=== PATIENT | male | born 1965 | race Two or more races ===

== ENCOUNTER 2020-06-09 09:52 | Outpatient (REF) | payer MEDICAID, SELFPAY ==
[2020-06-09 10:17] LABS: COVID-19 Test Negative (Negative)
== END 2020-06-09 09:53 | disposition home or self-care (01) ==
LOC: HO.LAB 09:52
PROVIDERS: Visit Provider Internal Medicine
DX: Z20.828 Contact with and (suspected) exposure to other viral communicable diseases (principal)
CPT/HCPCS: 87635

== ENCOUNTER 2020-06-12 09:07 | Outpatient (REF) | payer MEDICAID, SELFPAY | END 2020-06-12 09:08 | disposition home or self-care (01) | LOC: HO.LAB 09:07 | PROVIDERS: Visit Provider Internal Medicine | DX: Z20.828 Contact with and (suspected) exposure to other viral communicable diseases (principal) | CPT/HCPCS: 87635 ==

== ENCOUNTER → 2020-06-24 09:11 | Outpatient (REF) | payer MEDICAID, SELFPAY ==
--- NOTE | 2020-06-24 | NM_ITS ---
EXERCISE MYOCARDIAL PERFUSION STUDY INDICATION: Palpitations, hypertension, hyperlipidemia, diabetes, assess for coronary disease ischemia TECHNIQUE: The patient was brought in for an exercise perfusion study on 06/24/2020. Patient performed exercise as per Jean protocol and was injected 30 mCi of sestamibi once target heart rate was achieved. Images were obtained using the SPECT gamma camera interlaced with the gating device. Images were obtained in supine position. Resting perfusion study was performed on 06/25/2020. Patient was administered 30 mCi of sestamibi intravenously at rest. Images were then obtained in supine position. Total DLP 71mGy-cm. Images were processed with the software and compared side to side in short axis, horizontal long axis and vertical long axis views. FINDINGS: Raw images were reviewed. The stress perfusion study showed no significant perfusion abnormality. Both uncorrected as well as CT attenuation corrected images were reviewed. The gated study shows normal LV systolic function with calculated LVEF of 64%. LV cavity is normal in size. The gated study shows normal wall thickening and contraction of segments. Resting study shows no significant perfusion abnormality. Gating at rest reveals normal wall motion with ejection fraction at 54%. The findings are consistent with no reversible or fixed perfusion abnormality. NM/NM alex perf SPECT rest & str IMPRESSION: 1. Myocardial perfusion imaging study shows normal myocardial perfusion. No evidence of any ischemia or infarction. 2. Gated LVEF is 64% during stress; 54% during rest. 3. Transient ischemic dilatation not present. EKG component of the test reported separately.
--- NOTE | 2020-06-24 09:22 | CA_ITS ---
Acquisition Time: 2020-06-24 09:30:18 Total Exercise Time: 00:05:20 Test Indications: Dyspnea Medications: Protocol: DELFINO Max HR: 148 BPM 89% of Pred: 166 BPM Max BP: 136/082 mmHG Max Work Load: 7.0 METS Exercise stress nuclear using Delfino protocol. Total of 5 min 20 sec, METS 7.0. Pt reported SOB in peak exercise without any chest pain. EKG without any arrhythmias, no ischemic changes seen in peak exercise or in recovery. Nuclear images to follow. Normotensiver esponse to exercise. Test reviewed with DR. Oneal Referred By: Darius Johnson Overread By: Nghia Alonso
== END ==
LOC: HO.CARD 09:11
PROVIDERS: PCP Internal Medicine; Visit Provider Internal Medicine Cardiovascular Disease
DX: I10 Essential (primary) hypertension (principal)
CPT/HCPCS: 78452; 93017; A9500

== ENCOUNTER 2020-11-27 08:00 | Outpatient (RCR) | payer MEDICAID, SELFPAY ==
[2020-10-28 16:06] VITALS: BP 134/88
== END 2020-11-27 09:21 | disposition other institution (70) ==
LOC: HO.PTCHIC 08:00
PROVIDERS: PCP Internal Medicine; Visit Provider Internal Medicine
DX: M54.12 Radiculopathy, cervical region (principal); M54.5 Low back pain
CPT/HCPCS: 97014; 97110; 97140; 97162

== ENCOUNTER 2021-01-15 11:48 | Outpatient (REF) | payer MEDICAID, SELFPAY | END 2021-01-15 11:49 | disposition home or self-care (01) | LOC: HO.LAB 11:48 | PROVIDERS: Visit Provider Internal Medicine | DX: Z20.822 Contact with and (suspected) exposure to COVID-19 (principal) | CPT/HCPCS: C9803; U0003; U0005 ==

== ENCOUNTER → 2021-03-24 10:51 | Outpatient (BNVA) | payer MEDICAID, SELFPAY | PROVIDERS: PCP Internal Medicine; Visit Provider Anesthesiology | DX: M47.812 Spondylosis without myelopathy or radiculopathy, cervical region (principal); M47.816 Spondylosis without myelopathy or radiculopathy, lumbar region; M51.36 Other intervertebral disc degeneration, lumbar region; M54.16 Radiculopathy, lumbar region | CPT/HCPCS: 99202 ==

== ENCOUNTER 2021-04-01 08:38 | Outpatient (REF) | payer MEDICAID, SELFPAY ==
--- NOTE | ~2021-04-01 | MR_ITS ---
EXAMINATION: MR LUMBAR SPINE WITHOUT CONTRAST CLINICAL INFORMATION: Tingling. Low back pain. COMPARISON: X-ray dated 07/25/2016. TECHNIQUE: MRI of the lumbar spine was obtained using routine sequences without contrast. FINDINGS: VERTEBRAL BODIES AND PARASPINAL STRUCTURES: The marrow signal is within normal limits. There are no compression fractures or anterior subluxations. No marrow or soft tissue edema visible. Mild rightward curvature of the lumbar spine evident. The paraspinal soft tissues are normal. There are mild degenerative changes of the SI joints. CONUS MEDULLARIS AND CAUDA EQUINA: Normal, terminating at the level of L1. No lower cord signal abnormality is seen. The cauda equina nerve roots are normal. SPINAL LEVELS: L1-L2: Mild loss of disc height and minimal annular bulge without central canal stenosis or foraminal narrowing. L2-L3: No significant disc pathology. Patent central canal and foramina. L3-L4: No disc pathology, central canal stenosis, or foraminal narrowing. L4-L5: Mild disc bulge and hypertrophic facet arthropathy without central canal stenosis. Mild bilateral foraminal narrowing. L5-S1: Moderate right-sided facet degeneration. No focal disc protrusion. Mild right foraminal narrowing. MR/MR lumbar spine wo con IMPRESSION: Moderate right-sided facet arthropathy at the L5-S1 level with mild right foraminal encroachment. No focal disc protrusion. Milder spondylitic changes elsewhere as described.
== END 2021-04-01 08:39 | disposition home or self-care (01) ==
LOC: HO.MRI 08:38
PROVIDERS: PCP Internal Medicine; Visit Provider Anesthesiology
DX: M54.16 Radiculopathy, lumbar region (principal); M51.36 Other intervertebral disc degeneration, lumbar region; M47.816 Spondylosis without myelopathy or radiculopathy, lumbar region
CPT/HCPCS: 72148

== ENCOUNTER → 2021-04-21 11:02 | Outpatient (BNVA) | payer MEDICAID, SELFPAY | PROVIDERS: PCP Internal Medicine; Visit Provider Anesthesiology | DX: M47.812 Spondylosis without myelopathy or radiculopathy, cervical region (principal); M47.816 Spondylosis without myelopathy or radiculopathy, lumbar region; M51.36 Other intervertebral disc degeneration, lumbar region; M54.16 Radiculopathy, lumbar region | CPT/HCPCS: 99212 ==

== ENCOUNTER → 2021-05-11 10:07 | Outpatient (BNVA) | payer MEDICAID, SELFPAY | PROVIDERS: PCP Internal Medicine; Visit Provider Psychiatry & Neurology Neurology ==

== ENCOUNTER 2021-05-17 09:46 | Outpatient (REF) | payer MEDICAID, SELFPAY ==
[2021-05-17 11:11] LABS: Hemoglobin 14.2 g/dl (14.0-18.0); Mean Corpuscular Hemoglobin 28.9 pg (27.0-33.0); Mean Corpuscular Volume 87.6 fL (80-98); Mean Platelet Volume 11.6 fL (9.4-12.4); Platelet Count 157 X10*3/uL (160-400); Red Blood Count 4.91 X10*6/uL (4.60-5.80); Red Cell Distribution Width 12.9 % (11.0-16.0); White Blood Count 8.8 X10*3/uL (4.8-10.8)
[2021-05-17 12:31] LABS: Alanine Aminotransferase 24 U/L (0-40); Albumin Level 4.3 g/dL (3.5-5.0); Alkaline Phosphatase 86 U/L (39-117); Anion Gap 15 (12-20); Aspartate Amino Transferase 16 U/L (5-37); Bilirubin Total 0.3 mg/dL (0.0-1.0); Blood Urea Nitrogen 18 mg/dL (9-16); Calcium 9.2 mg/dL (8.4-10.2); Carbon Dioxide 23 mmol/L (22-29); Chloride 108 mmol/L (96-108); Estimated Glomerular Filt Rate > 60; Glucose Random 110 mg/dL (60-115); Potassium 4.5 mmol/L (3.3-5.1); Sodium 141 mmol/L (135-145); Total Protein 6.9 g/dL (6.5-8.0)
== END 2021-05-17 09:47 | disposition home or self-care (01) ==
LOC: HO.LAB 09:46
PROVIDERS: PCP Internal Medicine; Referring Provider Internal Medicine; Visit Provider Nurse Practitioner Family
DX: R10.31 Right lower quadrant pain (principal); R14.0 Abdominal distension (gaseous); K21.9 Gastro-esophageal reflux disease without esophagitis
CPT/HCPCS: 36415; 80053; 85027; 99202

== ENCOUNTER 2021-06-08 06:17 | Outpatient (REF) | payer MEDICAID, SELFPAY | END 2021-06-08 06:18 | disposition home or self-care (01) | LOC: HO.RADIR 06:17 | PROVIDERS: Visit Provider Anesthesiology | DX: Z13.89 Encounter for screening for other disorder (principal) ==

== ENCOUNTER 2021-06-15 06:40 | Outpatient (REF) | payer MEDICAID, SELFPAY | END 2021-06-15 06:41 | disposition home or self-care (01) | LOC: HO.RADIR 06:40 | PROVIDERS: Visit Provider Anesthesiology | DX: Z13.89 Encounter for screening for other disorder (principal) ==

== ENCOUNTER 2021-07-06 06:17 | Outpatient (REF) | payer MEDICAID, SELFPAY ==
--- NOTE | ~2021-07-06 | FL_ITS ---
EXAMINATION: XR FLUOROSCOPY WITH IMAGES CLINICAL INFORMATION: Spondylosis without myelopathy or radiculopathy. History of lower back pain. COMPARISON: Lumbar MRI from 04/01/2021 TECHNIQUE: Fluoroscopy performed by Dr. Caballero. Fluoroscopy time: 0.8 minutes DAP: 11.9 Gycm2 Images: 8 images are saved. FL/FL guidance in treatment room FINDINGS AND IMPRESSION: Fluoroscopic imaging guidance required during the perineural injections performed along bilateral L3, L4 and L5 nerve roots. Please refer to the procedure report.
== END 2021-07-06 06:18 | disposition home or self-care (01) ==
LOC: HO.RADIR 06:17
PROVIDERS: Visit Provider Anesthesiology
DX: M47.816 Spondylosis without myelopathy or radiculopathy, lumbar region (principal)
CPT/HCPCS: Q9967

== ENCOUNTER 2021-07-12 07:17 | Day surgery (SDC) | payer MEDICAID, SELFPAY ==
[2021-07-06 14:14] VITALS: BMI 33.9
--- NOTE | 2021-07-12 07:59 | P.CONAN_ITS ---
FORMERLY [facility] Active Problems Active Problems: All Active Problems (Updated 07/06/21 @ 13:59 by Jeanetet beatty RN) Obstructive sleep apnea (Acute) Restless legs syndrome (Acute) Periodic limb movements of sleep (Acute) Radiculopathy, lumbar region (Acute) Disc degeneration, lumbar (Acute) Spondylosis of lumbar spine (Acute) Spondylosis of cervical spine (Acute) Past Medical History Medical History (Updated 07/06/21 @ 13:59 by Jeanette Metcalf RN) Cardiomyopathy Diabetes Disc degeneration, lumbar Elevated cholesterol HTN (hypertension) Radiculopathy, lumbar region Sleep apnea Spondylosis of cervical spine Spondylosis of lumbar spine Family History Family History (Updated 05/17/21 @ 10:02 by Carrie Mcclure) Father HTN (hypertension) Diabetes Mother Diabetes HTN (hypertension) Heart disease Family history of problems with anesthesia: No Surgical History Surgical History (Updated 07/06/21 @ 13:59 by Jeanette Metcalf RN) H/O colonoscopy Hernia Hx of cardiac catheterization Hx of knee surgery History of Problems with Anesthesia: No Social History Social History (Updated 05/17/21 @ 10:03 by Carrie Mcclure) Household Members: Family Alcohol intake: former Patient Tobacco Use Status: Former Tobacco user Tobacco use type: Cigarette Advance Directives: No (unknown) Advance Directives Information Provided: Yes Advance Directives on File: No Meds Allergies Allergy/AdvReac Type Severity Reaction Status Date / Time No Known Allergies Allergy Verified 07/12/21 07:52 [No Known Allergies*] Active Medications: Current Medications Lactated Ringer's (Lr) 1,000 mls @ 50 mls/hr IVCONT .Q20H [facility] Home Medications Medication Instructions Recorded Confirmed Last Taken Type amitriptyline 75 mg tablet 75 mg PO BEDTIME 03/24/21 Unknown History amlodipine 5 mg tablet 5 mg PO DAILY 03/24/21 Unknown History aripiprazole 15 mg tablet 15 mg PO DAILY 03/24/21 Unknown History atorvastatin 40 mg tablet 40 mg PO BEDTIME 03/24/21 Unknown History bupropion HCl 150 mg 24 hr tablet, 150 mg PO QAM 03/24/21 Unknown History extended release buspirone 15 mg tablet 15 mg PO TID 03/24/21 Unknown History folic acid 1 mg tablet 1 mg PO DAILY 03/24/21 Unknown History hydrochlorothiazide 12.5 mg tablet 12.5 mg PO DAILY 03/24/21 Unknown History losartan 50 mg tablet 50 mg PO DAILY 03/24/21 Unknown History metformin 500 mg tablet 500 mg PO DAILY 03/24/21 Unknown History metoprolol tartrate 50 mg tablet 50 mg PO BID 03/24/21 Unknown History zolpidem 10 mg tablet 10 mg PO BEDTIME PRN 03/24/21 Unknown History Exam Exam Date and Time: July 12, 2021 0759 Height,Weight and Vital Signs: Height 5 ft 6 in Weight 95.254 kg Airway Mallampati Class: II (6 teeth) TM Dist: >3cm Neck ROM: Full Heart: rrr Lungs: cta Assessment and Plan Assessment Anesthesia Assessment: Anesthesia Plan Discussed and Chart Reviewed Final Anesthetic Review Family History of Problems with Anesthesia: No History of Problems with Anesthesia: No NPO: Yes ASA Class: III Final Preanesthetic Review: No Changes in Pt Med Stat, Meds/Allgs Chart Reviewed and Consent Obtained/Reviewed Patient Risk: Intermediate Procedure Risk: Intermediate Anesthetic Plan Anesthetic Plan: MAC: Disposition: Standard PACU
[2021-07-12 08:01] VITALS: BP 152/95; PULSE 86; RESP 20; TEMP 36.8; O2SAT 97
[2021-07-12 08:09] LABS: Glucose, Whole Blood 128 mg/dL (60-115)
[2021-07-12] MEDS: Lactated Ringers 1,000 ML 50 ML IVCONT (08:22)
--- NOTE | 2021-07-12 08:32 | P.HPSUR_ITS ---
Pre-Procedural Eval Section A Date of Service: 07/12/21 Section B Chief Complaint: Screening Relevant Family History (Specify if Yes): No Relevant Social History: None Present Medications: see Short Stay Collaborative assessment Medical History: Significant History (Cardiomyopathy Diabetes Disc degeneration, lumbar Elevated cholesterol HTN (hypertension) Radiculopathy, lumbar region Sleep apnea Spondylosis of cervical spine Spondylosis of lumbar spine) History of Previous Operations: Relevant previous surgery/procedure and date(s) (H/O colonoscopy Hernia Hx of cardiac catheterization Hx of knee surgery) Allergies: Allergies Allergy/AdvReac Type Severity Reaction Status Date / Time No Known Allergies Allergy Verified 07/12/21 07:52 [No Known Allergies*] Review of Systems Sugical H&P ROS: Negative: Constitution, Cardiovascular, Respiratory, Rosa rological, Psychiatric, Hem-Onc, Allergic/Immunologic, Gastrointestinal, Genitourinary, Musculoskeletal, Integumentary, Endocrine and Eyes/Ears/Nose/Throat Exam Surgical H&P Exam: Normal: HEENT, Normal: Heart, Normal: Lungs, Normal: Extremities, Normal: Abdomen, Normal: Skin and Normal: Neurological Plan Diagnosis/Plan: Unchanged I have reviewed the history and physical and performed a pertinent physical examination on my patient. No changes have occurred unless specified.
--- NOTE | 2021-07-12 08:34 | P.BOP_ITS ---
Brief Operative Note Date of Service: 07/12/21 Pre-op diagnosis: colon screening Post-op diagnosis: same Procedure: see op note Surgeon: Christian Garcia MD Anesthesia: MAC Was an Parking Enforcement Technician used for this Procedure?: No Estimated blood loss (mL): 0 Condition: stable Disposition: PACU
--- NOTE | 2021-07-12 08:34 | W.PM.OPN ---
Operative Note Operative Note Date of Service: 07/12/21 Narrative: Operative Information Procedure Description: Colonoscopy COLONOSCOPY Instrument: Olympus variable stiffness pediatric scope 190L Colonoscopy Monitoring: Vital signs and clinical assessment, continuous EKG monitoring, Pulse oximetry, Carbon Dioxide monitoring and blood pressure monitoring were done throughout the procedure. Colon withdrawal time was 13 minutes. Procedure: The patient was placed in the left lateral decubitis position and pre-procedure medications were administered. After a digital rectal examination of the ano-rectum, the video colonoscope was inserted into the rectum and advanced through the colon to the cecum/TI. The colonoscope was slowly withdrawn in a retrograde panoramic fashion and the colon mucosa was carefully examined including a retroflexed view of the rectum. Findings and interventions are described below. Procedure Difficulty:easy Findings: Terminal Ileum-normal Cecum:normal Ascending Colon: normal Transverse Colon -normal Descending Colon:normal Sigmoid Colon: normal Rectum: Retroflexion with small internal hemorrhoids, grade I, 10-12 mm sessile polyp removed with cold snare and x 2 clips applied for hemostasis Anorectum - normal Colon preparation: [place] Bowel Preparation Scale Right colon; 2 (except at cecum where it was 1) Transverse colon: 2 Left colon; 2 (0 = Unprepared colon segment with mucosa not seen due to solid stool that cannot be cleared. 1 = Portion of mucosa of the colon segment seen, but other areas of the colon segment not well seen due to staining, residual stool and/or opaque liquid. 2 = Minor amount of residual staining, small fragments of stool and/or opaque liquid, but mucosa of colon segment seen well. 3 = Entire mucosa of colon segment seen well with no residual staining, small fragments of stool or opaque liquid) Impression and Post Procedure Diagnosis: internal hemorrhoids polyp Plan: High fiber diet leaflet Avoid straining at stool, epsom salts and sitz bath, anusol supps or cream Repeat Colonoscopy in 4-5 years due to poor prep around cecum or earlier if clinically indicated Above findings were reviewed with the patient and relevant handouts were provided if indicated.
[2021-07-12 09:02] VITALS: BP 121/76; PULSE 89; RESP 16; TEMP 36.5; O2SAT 92
[2021-07-12 09:18] VITALS: BP 133/90; PULSE 85; RESP 17; TEMP 36.5; O2SAT 95
== END 2021-07-12 09:45 ==
LOC: HO.SSS 07:17
PROVIDERS: PCP Internal Medicine; Visit Provider Internal Medicine Gastroenterology
PROC: 0DJD8ZZ Inspection of Lower Intestinal Tract, Via Natural or Artificial Opening Endoscopic (ICD-10-PCS; CPT 45378; principal; 2021-07-12 08:30)
DX: Z12.11 Encounter for screening for malignant neoplasm of colon (principal); D12.8 Benign neoplasm of rectum; K64.0 First degree hemorrhoids; R10.31 Right lower quadrant pain; K21.9 Gastro-esophageal reflux disease without esophagitis; G47.33 Obstructive sleep apnea (adult) (pediatric); I42.9 Cardiomyopathy, unspecified; I10 Essential (primary) hypertension; E78.00 Pure hypercholesterolemia, unspecified; E11.9 Type 2 diabetes mellitus without complications; Z87.891 Personal history of nicotine dependence; Z79.84 Long term (current) use of oral hypoglycemic drugs; Z79.899 Other long term (current) drug therapy
CPT/HCPCS: 45385; 82947; 88305

== ENCOUNTER → 2021-07-14 10:36 | Outpatient (BNVA) | payer MEDICAID, SELFPAY | PROVIDERS: PCP Internal Medicine; Visit Provider Anesthesiology | DX: M47.816 Spondylosis without myelopathy or radiculopathy, lumbar region (principal); M47.812 Spondylosis without myelopathy or radiculopathy, cervical region; M51.36 Other intervertebral disc degeneration, lumbar region; M54.16 Radiculopathy, lumbar region | CPT/HCPCS: 99212 ==

== ENCOUNTER → 2021-07-27 09:06 | Outpatient (BNVA) | payer MEDICAID, SELFPAY | PROVIDERS: PCP Internal Medicine; Referring Provider Internal Medicine; Visit Provider Psychiatry & Neurology Neurology ==

== ENCOUNTER → 2021-08-04 13:37 | Outpatient (BNVA) | payer MEDICAID, SELFPAY | PROVIDERS: PCP Internal Medicine; Referring Provider Internal Medicine; Visit Provider Nurse Practitioner Family | DX: K59.01 Slow transit constipation (principal); K64.8 Other hemorrhoids; D36.9 Benign neoplasm, unspecified site; Z98.890 Other specified postprocedural states | CPT/HCPCS: 99212 ==

== ENCOUNTER → 2021-12-07 13:47 | Outpatient (BNVA) | payer MEDICAID, SELFPAY | PROVIDERS: PCP Internal Medicine; Referring Provider Internal Medicine; Visit Provider Psychiatry & Neurology Neurology | DX: G47.33 Obstructive sleep apnea (adult) (pediatric) (principal); G25.81 Restless legs syndrome; G47.61 Periodic limb movement disorder | CPT/HCPCS: 99212 ==

== ENCOUNTER → 2022-01-26 12:53 | Outpatient (BNVA) | payer MEDICAID, SELFPAY | PROVIDERS: PCP Internal Medicine; Referring Provider Internal Medicine; Visit Provider Nurse Practitioner Family | DX: R10.11 Right upper quadrant pain (principal); M62.08 Separation of muscle (nontraumatic), other site; K59.01 Slow transit constipation | CPT/HCPCS: 99212 ==

== ENCOUNTER → 2022-02-08 14:28 | Outpatient (BNVA) | payer MEDICAID, SELFPAY | PROVIDERS: PCP Internal Medicine; Visit Provider Nurse Practitioner Family | DX: G47.33 Obstructive sleep apnea (adult) (pediatric) (principal); G25.81 Restless legs syndrome; Z79.899 Other long term (current) drug therapy; Z99.89 Dependence on other enabling machines and devices | CPT/HCPCS: 99212 ==

== ENCOUNTER 2022-02-09 14:06 | Outpatient (REF) | payer MEDICAID, SELFPAY ==
--- NOTE | ~2022-02-09 | CT_ITS ---
EXAMINATION: CT ABDOMEN AND PELVIS WITHOUT CONTRAST CLINICAL INFORMATION: Right upper quadrant pain COMPARISON: None TECHNIQUE: Multidetector volumetric imaging was performed from the superior aspect of the liver through the pubic symphysis. Sagittal and coronal reformatted images were obtained on the technologist's workstation. This CT examination was performed using dose optimization techniques as appropriate, variously including the following: *Automated exposure control *Adjustment of mA and/or kV according to patient size (this includes techniques or standardized protocols for targeted exams where dose is matched to indication/reason for exam; i.e. extremities or head) *Use of iterative reconstruction technique DLP: 590 mGy-cm FINDINGS: LUNG BASES: The visualized lung bases are unremarkable. LIVER, GALLBLADDER, AND BILIARY TREE: The liver is low in attenuation suggestive of fatty infiltration. No focal hepatic lesion or biliary ductal dilatation is present. The gallbladder is unremarkable with no evidence of radiopaque gallstones, gallbladder wall thickening, or obvious pericholecystic inflammatory changes. PANCREAS: Unremarkable. SPLEEN: Unremarkable. ADRENAL GLANDS: Unremarkable. KIDNEYS AND URETERS: The kidneys are normal in size, shape, and attenuation. No hydronephrosis, hydroureter, or calculi seen. No perinephric stranding. BLADDER: Unremarkable. GASTROINTESTINAL TRACT: The small and large bowel are unremarkable. The appendix is not identified. No inflammatory changes are seen in the right lower quadrant. ABDOMINAL WALL: No significant hernia is appreciated. LYMPH NODES: Normal. VASCULAR: Unremarkable. PELVIC VISCERA: Unremarkable. OSSEOUS STRUCTURES: Unremarkable. CT/CT abdomen pelvis wo con IMPRESSION: Fatty liver otherwise unremarkable exam. Fleischner guidelines were followed.
[2022-02-09] MEDS: Barium Sulfate Oral (Vanilla) 450 ML ORAL.SUSP 900 ML PO (16:11)
== END 2022-02-09 14:07 | disposition home or self-care (01) ==
LOC: HO.CT 14:06
PROVIDERS: Visit Provider Nurse Practitioner Family
DX: R10.11 Right upper quadrant pain (principal)
CPT/HCPCS: 74176

== ENCOUNTER → 2022-02-15 14:09 | Outpatient (BNVA) | payer MEDICAID, SELFPAY | PROVIDERS: PCP Internal Medicine; Referring Provider Internal Medicine; Visit Provider Surgery | DX: M62.08 Separation of muscle (nontraumatic), other site (principal) | CPT/HCPCS: 99202 ==

== ENCOUNTER → 2022-05-30 13:47 | Outpatient (BNVA) | payer MEDICAID, SELFPAY | PROVIDERS: PCP Internal Medicine; Referring Provider Internal Medicine; Visit Provider Nurse Practitioner Family | DX: K59.04 Chronic idiopathic constipation (principal); M62.08 Separation of muscle (nontraumatic), other site | CPT/HCPCS: 99212 ==

== ENCOUNTER → 2022-08-31 14:42 | Outpatient (BNVA) | payer MEDICAID, SELFPAY | PROVIDERS: PCP Internal Medicine; Visit Provider Nurse Practitioner Family | DX: G47.33 Obstructive sleep apnea (adult) (pediatric) (principal); G25.81 Restless legs syndrome; Z79.899 Other long term (current) drug therapy; Z99.89 Dependence on other enabling machines and devices | CPT/HCPCS: 99212 ==

== ENCOUNTER → 2022-09-05 14:49 | Outpatient (REF) | payer MEDICAID, SELFPAY | LOC: HO.SL 14:49 | PROVIDERS: Visit Provider Nurse Practitioner Family | DX: G47.33 Obstructive sleep apnea (adult) (pediatric) (principal); G25.81 Restless legs syndrome; R40.0 Somnolence | CPT/HCPCS: 95806 ==

== ENCOUNTER 2022-10-07 15:06 | Outpatient (REF) | payer MEDICAID, SELFPAY ==
--- NOTE | ~2022-10-07 | XR_ITS ---
EXAMINATION: XR CHEST 2 VIEWS CLINICAL INFORMATION: Dyspnea on exertion. COMPARISON: Cervical spine radiographs dated 03/21/2017. TECHNIQUE: Frontal and lateral views of the chest were obtained. FINDINGS: The heart, great vessels and pulmonary vasculature are normal. There is some prominence of the right paratracheal stripe, possibly reflecting vascular structures. This is stable from cervical spine radiographs dated 03/21/2017. The lungs show no focal infiltrate, effusion or pneumothorax. There is no acute osseous abnormality. XR/XR chest 2V IMPRESSION: 1. No focal infiltrate or congestive heart are seen. 2. There is stable, chronic prominence of the right paratracheal stripe, possibly reflecting vascular structures.
== END 2022-10-07 15:07 | disposition home or self-care (01) ==
LOC: HO.XRAY 15:06
PROVIDERS: Visit Provider Internal Medicine
DX: R06.09 Other forms of dyspnea (principal)
CPT/HCPCS: 71046

== ENCOUNTER 2022-10-22 13:23 | Emergency (ER) | payer MEDICAID, SELFPAY ==
--- NOTE | ~2022-10-22 | XR_ITS ---
EXAMINATION: XR chest 2V CLINICAL INFORMATION: Reason for Exam CP COMPARISON: No prior chest x-ray available in our system for comparison at the time of this dictation. TECHNIQUE: XR chest 2V Lungs and Tara: Mild prominence of the pulmonary vasculature without kerry failure. Pleura: Normal. Costophrenic angles are sharp. No pneumothorax. Heart: The heart is normal in size. Mediastinum: Widened mediastinum and prominent right paratracheal stripe, this is chronic and might be vascular.. Bones: Skeletal structures included are normal for patient's age. XR/XR chest 2V IMPRESSION: * Mild prominence of the pulmonary vasculature without kerry failure. * Widened mediastinum and prominent right paratracheal stripe, this has not changed and might be vascular structure. However If patient is high-risk, May consider correlation with follow-up CT chest with contrast..
--- NOTE | 2022-10-22 13:26 | ECG_ITS ---
Test Reason : CHEST PAIN Blood Pressure : / mmHG Vent. Rate : 070 BPM Atrial Rate : 070 BPM P-R Int : 148 ms QRS Dur : 086 ms QT Int : 336 ms P-R-T Axes : 058 052 040 degrees QTc Int : 362 ms Normal sinus rhythm Normal ECG No previous ECGs available Referred By: Generic ED Physician Electronically Signed By:BRIAN KEATING
[2022-10-22 13:41] VITALS: BP 147/92; PULSE 70; RESP 18; TEMP 37; O2SAT 97; BMI 34.3
--- NOTE | 2022-10-22 13:42 | ED_ITS ---
HPI - General Adult General Chief complaint: Chest Pain <CHRIS Bailey - Last Filed: 10/22/22 13:43> Stated complaint: Chest Pain on left side <CHRIS Bailey - Last Filed: 10/22/22 13:43> Time Seen by Provider: 10/22/22 15:33 <CHRIS Bailey - Last Filed: 10/22/22 13:43> Source: patient <Frantz Curtis MD - Last Filed: 10/22/22 16:53> Mode of arrival: ambulatory <Frantz Curtis MD - Last Filed: 10/22/22 16:53> Limitations: no limitations <Frantz Curtis MD - Last Filed: 10/22/22 16:53> History of Present Illness HPI narrative: 2 days of left sided chest pain, stabbing, it is intermittent lasting seconds. Patient states he has had palpitations and tachycardia, cardiac cath was normal last year, never told he had atrial fibrillation <Frantz Curtis MD - Last Filed: 10/22/22 16:53> Onset (ago): day(s) <Frantz Curtis MD - Last Filed: 10/22/22 16:53> Severity: mild <Frantz Curtis MD - Last Filed: 10/22/22 16:53> Quality: stabbing <Frantz Curtis MD - Last Filed: 10/22/22 16:53> Associated symptoms: denies other symptoms <Frantz Curtis MD - Last Filed: 10/22/22 16:53> Related Data Home medications: Home Medications Medication Instructions Recorded Confirmed amitriptyline 75 mg tablet 75 mg PO BEDTIME 03/24/21 02/15/22 amlodipine 5 mg tablet 5 mg PO DAILY 03/24/21 02/15/22 atorvastatin 40 mg tablet 40 mg PO BEDTIME 03/24/21 02/15/22 folic acid 1 mg tablet 1 mg PO DAILY 03/24/21 02/15/22 hydrochlorothiazide 12.5 mg tablet 12.5 mg PO DAILY 03/24/21 02/15/22 metformin 500 mg tablet 500 mg PO DAILY 03/24/21 02/15/22 metoprolol tartrate 50 mg tablet 50 mg PO BID 03/24/21 02/15/22 aripiprazole 20 mg tablet 20 mg PO BEDTIME 12/07/21 02/15/22 cholecalciferol (vitamin D3) 50 50 mcg PO QAM 12/07/21 02/15/22 mcg (2,000 unit) capsule furosemide 20 mg tablet 20 mg PO QAM 12/07/21 02/15/22 tramadol 50 mg tablet 100 mg PO Q12H PRN 12/07/21 02/15/22 venlafaxine 150 mg 150 mg PO DAILY 12/07/21 02/15/22 capsule,extended release 24 hr blood sugar diagnostic (FreeStyle #10 ea 01/26/22 02/15/22 Lite Strips) bupropion HCl 100 mg tablet,12 hr 100 mg PO QAM 01/26/22 02/15/22 sustained-release buspirone 30 mg tablet 30 mg PO 01/26/22 02/15/22 lancets 33 gauge (TRUEplus Lancets) #100 ea 01/26/22 02/15/22 tizanidine 4 mg tablet 6 mg PO TID PRN muscle spasm 01/26/22 02/15/22 venlafaxine 75 mg capsule,extended 75 mg PO DAILY 01/26/22 02/15/22 release 24 hr gabapentin 100 mg capsule 300 mg PO 08/31/22 losartan 100 mg tablet 100 mg PO QAM 08/31/22 risperidone 1 mg tablet 1 mg PO BEDTIME 08/31/22 venlafaxine 37.5 mg 37.5 mg PO DAILY 08/31/22 capsule,extended release 24 hr zolpidem 10 mg tablet 10 mg PO BEDTIME 08/31/22 Previous Rx's Medication Instructions Recorded ropinirole 0.5 mg tablet 1 mg PO BID #120 tabs 04/12/22 lidocaine 5 % topical patch 1 patch topical DAILY #15 ea 05/30/22 sennosides 8.6 mg tablet (Natural 8.6 mg PO BEDTIME constipation #90 05/30/22 Senna Laxative) tabs naproxen 500 mg tablet (Naprosyn) 500 mg PO BID #20 tabs 10/22/22 <CHRIS Bailey - Last Filed: 10/22/22 13:43> Allergies/adverse reactions: Allergies Allergy/AdvReac Type Severity Reaction Status Date / Time No Known Allergies Allergy Verified 08/31/22 14:51 [No Known Allergies*] <CHRIS Bailey - Last Filed: 10/22/22 13:43> Review of Systems Review of Systems: Yes all other systems are reviewed and are negative <Frantz Curtis MD - Last Filed: 10/22/22 16:53> Cardiovascular: Cardiovascular: Reports chest pain <Frantz Curtis MD - Last Filed: 10/22/22 16:53> [facility] Past Medical History Medical History: Medical History Cardiomyopathy Diabetes Disc degeneration, lumbar Elevated cholesterol HTN (hypertension) Internal hemorrhoid Radiculopathy, lumbar region Sleep apnea Spondylosis of cervical spine Spondylosis of lumbar spine Tubular adenoma <CHRIS Bailey - Last Filed: 10/22/22 13:43> Surgical History: Surgical History H/O colonoscopy Hernia History of hernia repair Hx of cardiac catheterization Hx of knee surgery <CHRIS Bailey - Last Filed: 10/22/22 13:43> Family History Family History: Family History Father HTN (hypertension) Diabetes Mother Diabetes HTN (hypertension) Heart disease <CHRIS Bailey - Last Filed: 10/22/22 13:43> Social History Social History: Social History Household Members: Family Alcohol intake: former Patient Tobacco Use Status: Former Tobacco user Tobacco use type: Cigarette Advance Directives: No Advance Directives Information Provided: Yes <CHRIS Bailey - Last Filed: 10/22/22 13:43> Physical Exam ED Vital Signs: Vital Signs - 24 hr 10/22/22 13:41 10/22/22 16:55 Temperature 98.6 F 97.7 F Pulse Rate 70 79 Respiratory Rate 18 Blood Pressure 147/92 H 127/85 Pulse Oximetry 97 98 Oxygen Delivery Method Room Air Room Air BMI result Body Mass Index 34.3 <CHRIS Bailey - Last Filed: 10/22/22 13:43> Vital Signs - 24 hr 10/22/22 13:41 10/22/22 16:55 Temperature 98.6 F 97.7 F Pulse Rate 70 79 Respiratory Rate 18 Blood Pressure 147/92 H 127/85 Pulse Oximetry 97 98 Oxygen Delivery Method Room Air Room Air BMI result Body Mass Index 34.3 <Frantz Curtis MD - Last Filed: 10/22/22 16:53> Vital Signs - 24 hr 10/22/22 13:41 10/22/22 16:55 Temperature 98.6 F 97.7 F Pulse Rate 70 79 Respiratory Rate 18 Blood Pressure 147/92 H 127/85 Pulse Oximetry 97 98 Oxygen Delivery Method Room Air Room Air BMI result Body Mass Index 34.3 <Mauricio Neal MD - Last Filed: 10/22/22 18:16> Chest Other: reproducible chest pain on palpation <Frantz Curtis MD - Last Filed: 0 10/22/22 16:53> Course Course Course Narrative: RME performed by Sue Rodriguez PA-C. Patient is a 57 year old male presenting to the emergency department with left sided chest pain. EKG and labs ordered. Patient placed back in the waiting room pending room availability and results. <CHRIS Bailey - Last Filed: 10/22/22 13:43> Reevaluation(s) Reevaluation #1: patient with atypical chest pain, normal EKG, will send repeat troponin, if negative will dc home with costrochondritis <Frantz Curtis MD - Last Filed: 10/22/22 16:53> Time: 16:41 <Frantz Curtis MD - Last Filed: 10/22/22 16:53> Reevaluation #2: I assumed care of this patient from my colleague, Dr. Frantz Curtis at 16:30 hours pending his repeat 3 hour troponin. I did interview and examine the patient. The patient presented to the emergency department for 3 days of intermittent chest pressure. He describes the pressure is a punching/sharp sensation located in his left chest. He points to his left anterior chest and sternum when asked to localize the pain. He states the pain will last seconds he has had multiple episodes. Patient does have history of hypertension diabetes mellitus, obstructive sleep apnea and costochondritis. On my examination the patient does have tenderness palpation of his left cause stroke chondral joints otherwise exam was unremarkable. Patient's initial troponin was detectable but not elevated at 5.1. Repeat troponin 3 hours later was also detectable but not elevated at 5.9. Chest x-ray revealed no acute findings and consistent with his previous x-rays. Twelve EKG revealed a normal sinus rhythm with no ST segment elevation depression. On my examination the patient does have tenderness palpation of his left past or chondral joints. Given his negative workup I believe that his symptoms are consistent with costochondritis I did discuss this with him. He was advised to take Motrin 40 mg 3 times a day for the next 4 days see if this improves his pain. Also advised to take T ylenol. Was given printed and verbal instructions and discharged home. <Do kevin Neal MD - Last Filed: 10/22/22 18:16> Time: 18:11 <Mauricio Neal MD - Last Filed: 10/22/22 18:16> Medical Decision Making Differential Diagnosis Differential Diagnoses: The differential diagnosis associated with the presentation includes (chest pain, acute coronary syndrome, costrochondritis) <Frantz Curtis MD - Last Filed: 10/22/22 16:53> Admission/Observation Consideration of admission/observation: Escalation of care including admission/observation considered (in a 57 yo male with chest pain admission was considered) <Frantz Curtis MD - Last Filed: 10/22/22 16:53> Lab Data MDM Lab Attestation statement: I reviewed the patient's lab results. <Frantz Curtis MD - Last Filed: 10/22/22 16:53> Result Diagrams: 10/22/22 13:39 10/22/22 13:39 <CHRIS Bailey - Last Filed: 10/22/22 13:43> Labs: Lab Results 10/22/22 10/22/22 10/22/22 Range/Units 13:39 13:39 13:39 WBC 6.8 (4.8-10.8) X10*3/uL RBC 5.15 (4.60-5.80) X10*6/uL Hgb 14.4 (14.0-18.0) g/dl Hct 43.1 (42.0-52.0) % MCV 83.7 (80.0-98.0) fL MCH 28.0 (27.0-33.0) pg MCHC 33.4 (31.0-36.0) g/dl RDW 13.1 (11.0-16.0) % Plt Count 170 (160-400) X10*3/uL MPV 11.0 (9.4-12.4) fL Immature Gran % (Auto) 0.3 (0.0-0.4) % Neut % (Auto) 51.3 (45-73) % Lymph % (Auto) 37.8 (20-40) % [place] % (Auto) 8.4 (2-11) % Eos % (Auto) 1.6 (0-4) % Baso % (Auto) 0.6 (0-2) % Lymph # (Auto) 2.6 (1.2-4.9) X10*3/uL [place] # (Auto) 0.6 (0.1-1.2) X10*3/uL Eos # (Auto) 0.1 (0.0-0.4) X10*3/uL Baso # (Auto) 0.0 (0.0-0.2) X10*3/uL Abs Immat Gran (auto) 0.02 (0.00-0.03) X10*3/uL Absolute Neuts (auto) 3.5 (2.0-8.3) x10*3/uL Absolute Nucleated RBC 0.000 (0.0-0.012) X10*3/uL Nucleated RBC % (auto) 0.0 (0.0-0.2) /100WBC Sodium 141 (135-145) mmol/L Potassium 4.5 (3.3-5.1) mmol/L Chloride 106 (96-108) mmol/L Carbon Dioxide 25 (22-29) mmol/L Anion Gap 15 (12-20) BUN 18 H (9-16) mg/dL Creatinine 1.01 (0.5-1.4) mg/dL Estim Creat Clear Calc 87.8 Estimated GFR > 60 Random Glucose 122 H (60-115) mg/dL Calcium 9.0 (8.4-10.2) mg/dL Troponin I High Sens 5.1 (<3.5-35.0) ng/L 02/25/23 Range/Units 16:26 WBC (4.8-10.8) X10*3/uL RBC (4.60-5.80) X10*6/uL Hgb (14.0-18.0) g/dl Hct (42.0-52.0) % MCV (80.0-98.0) fL MCH (27.0-33.0) pg MCHC (31.0-36.0) g/dl RDW (11.0-16.0) % Plt Count (160-400) X10*3/uL MPV (9.4-12.4) fL Immature Gran % (Auto) (0.0-0.4) % Neut % (Auto) (45-73) % Lymph % (Auto) (20-40) % [place] % (Auto) (2-11) % Eos % (Auto) (0-4) % Baso % (Auto) (0-2) % Lymph # (Auto) (1.2-4.9) X10*3/uL [place] # (Auto) (0.1-1.2) X10*3/uL Eos # (Auto) (0.0-0.4) X10*3/uL Baso # (Auto) (0.0-0.2) X10*3/uL Abs Immat Gran (auto) (0.00-0.03) X10*3/uL Absolute Neuts (auto) (2.0-8.3) x10*3/uL Absolute Nucleated RBC (0.0-0.012) X10*3/uL Nucleated RBC % (auto) (0.0-0.2) /100WBC Sodium (135-145) mmol/L Potassium (3.3-5.1) mmol/L Chloride (96-108) mmol/L Carbon Dioxide (22-29) mmol/L Anion Gap (12-20) BUN (9-16) mg/dL Creatinine (0.5-1.4) mg/dL Estim Creat Clear Calc Estimated GFR Random Glucose (60-115) mg/dL Calcium (8.4-10.2) mg/dL Troponin I High Sens 5.9 (<3.5-35.0) ng/L <CHRIS Bailey - Last Filed: 10/22/22 13:43> Lab Results 10/22/22 10/22/22 10/22/22 Range/Units 13:39 13:39 13:39 WBC 6.8 (4.8-10.8) X10*3/uL RBC 5.15 (4.60-5.80) X10*6/uL Hgb 14.4 (14.0-18.0) g/dl Hct 43.1 (42.0-52.0) % MCV 83.7 (80.0-98.0) fL MCH 28.0 (27.0-33.0) pg MCHC 33.4 (31.0-36.0) g/dl RDW 13.1 (11.0-16.0) % Plt Count 170 (160-400) X10*3/uL MPV 11.0 (9.4-12.4) fL Immature Gran % (Auto) 0.3 (0.0-0.4) % Neut % (Auto) 51.3 (45-73) % Lymph % (Auto) 37.8 (20-40) % [place] % (Auto) 8.4 (2-11) % Eos % (Auto) 1.6 (0-4) % Baso % (Auto) 0.6 (0-2) % Lymph # (Auto) 2.6 (1.2-4.9) X10*3/uL [place] # (Auto) 0.6 (0.1-1.2) X10*3/uL Eos # (Auto) 0.1 (0.0-0.4) X10*3/uL Baso # (Auto) 0.0 (0.0-0.2) X10*3/uL Abs Immat Gran (auto) 0.02 (0.00-0.03) X10*3/uL Absolute Neuts (auto) 3.5 (2.0-8.3) x10*3/uL Absolute Nucleated RBC 0.000 (0.0-0.012) X10*3/uL Nucleated RBC % (auto) 0.0 (0.0-0.2) /100WBC Sodium 141 (135-145) mmol/L Potassium 4.5 (3.3-5.1) mmol/L Chloride 106 (96-108) mmol/L Carbon Dioxide 25 (22-29) mmol/L Anion Gap 15 (12-20) BUN 18 H (9-16) mg/dL Creatinine 1.01 (0.5-1.4) mg/dL Estim Creat Clear Calc 87.8 Estimated GFR > 60 Random Glucose 122 H (60-115) mg/dL Calcium 9.0 (8.4-10.2) mg/dL Troponin I High Sens 5.1 (<3.5-35.0) ng/L 10/22/22 Range/Units 16:26 WBC (4.8-10.8) X10*3/uL RBC (4.60-5.80) X10*6/uL Hgb (14.0-18.0) g/dl Hct (42.0-52.0) % MCV (80.0-98.0) fL MCH (27.0-33.0) pg MCHC (31.0-36.0) g/dl RDW (11.0-16.0) % Plt Count (160-400) X10*3/uL MPV (9.4-12.4) fL Immature Gran % (Auto) (0.0-0.4) % Neut % (Auto) (45-73) % Lymph % (Auto) (20-40) % Kingfisher % (Auto) (2-11) % Eos % (Auto) (0-4) % Baso % (Auto) (0-2) % Lymph # (Auto) (1.2-4.9) X10*3/uL [place] # (Auto) (0.1-1.2) X10*3/uL Eos # (Auto) (0.0-0.4) X10*3/uL Baso # (Auto) (0.0-0.2) X10*3/uL Abs Immat Gran (auto) (0.00-0.03) X10*3/uL Absolute Neuts (auto) (2.0-8.3) x10*3/uL Absolute Nucleated RBC (0.0-0.012) X10*3/uL Nucleated RBC % (auto) (0.0-0.2) /100WBC Sodium (135-145) mmol/L Potassium (3.3-5.1) mmol/L Chloride (96-108) mmol/L Carbon Dioxide (22-29) mmol/L Anion Gap (12-20) BUN (9-16) mg/dL Creatinine (0.5-1.4) mg/dL Estim Creat Clear Calc Estimated GFR Random Glucose (60-115) mg/dL Calcium (8.4-10.2) mg/dL Troponin I High Sens 5.9 (<3.5-35.0) ng/L <Frantz Curtis MD - Last Filed: 10/22/22 16:53> Lab Results 10/22/22 10/22/22 10/22/22 Range/Units 13:39 13:39 13:39 WBC 6.8 (4.8-10.8) X10*3/uL RBC 5.15 (4.60-5.80) X10*6/uL Hgb 14.4 (14.0-18.0) g/dl Hct 43.1 (42.0-52.0) % MCV 83.7 (80.0-98.0) fL MCH 28.0 (27.0-33.0) pg MCHC 33.4 (31.0-36.0) g/dl RDW 13.1 (11.0-16.0) % Plt Count 170 (160-400) X10*3/uL MPV 11.0 (9.4-12.4) fL Immature Gran % (Auto) 0.3 (0.0-0.4) % Neut % (Auto) 51.3 (45-73) % Lymph % (Auto) 37.8 (20-40) % [place] % (Auto) 8.4 (2-11) % Eos % (Auto) 1.6 (0-4) % Baso % (Auto) 0.6 (0-2) % Lymph # (Auto) 2.6 (1.2-4.9) X10*3/uL [place] # (Auto) 0.6 (0.1-1.2) X10*3/uL Eos # (Auto) 0.1 (0.0-0.4) X10*3/uL Baso # (Auto) 0.0 (0.0-0.2) X10*3/uL Abs Immat Gran (auto) 0.02 (0.00-0.03) X10*3/uL Absolute Neuts (auto) 3.5 (2.0-8.3) x10*3/uL Absolute Nucleated RBC 0.000 (0.0-0.012) X10*3/uL Nucleated RBC % (auto) 0.0 (0.0-0.2) /100WBC Sodium 141 (135-145) mmol/L Potassium 4.5 (3.3-5.1) mmol/L Chloride 106 (96-108) mmol/L Carbon Dioxide 25 (22-29) mmol/L Anion Gap 15 (12-20) BUN 18 H (9-16) mg/dL Creatinine 1.01 (0.5-1.4) mg/dL Estim Creat Clear Calc 87.8 Estimated GFR > 60 Random Glucose 122 H (60-115) mg/dL Calcium 9.0 (8.4-10.2) mg/dL Troponin I High Sens 5.1 (<3.5-35.0) ng/L 10/22/22 Range/Units 16:26 WBC (4.8-10.8) X10*3/uL RBC (4.60-5.80) X10*6/uL Hgb (14.0-18.0) g/dl Hct (42.0-52.0) % MCV (80.0-98.0) fL MCH (27.0-33.0) pg MCHC (31.0-36.0) g/dl RDW (11.0-16.0) % Plt Count (160-400) X10*3/uL MPV (9.4-12.4) fL Immature Gran % (Auto) (0.0-0.4) % Neut % (Auto) (45-73) % Lymph % (Auto) (20-40) % [place] % (Auto) (2-11) % Eos % (Auto) (0-4) % Baso % (Auto) (0-2) % Lymph # (Auto) (1.2-4.9) X10*3/uL [place] # (Auto) (0.1-1.2) X10*3/uL Eos # (Auto) (0.0-0.4) X10*3/uL Baso # (Auto) (0.0-0.2) X10*3/uL Abs Immat Gran (auto) (0.00-0.03) X10*3/uL Absolute Neuts (auto) (2.0-8.3) x10*3/uL Absolute Nucleated RBC (0.0-0.012) X10*3/uL Nucleated RBC % (auto) (0.0-0.2) /100WBC Sodium (135-145) mmol/L Potassium (3.3-5.1) mmol/L Chloride (96-108) mmol/L Carbon Dioxide (22-29) mmol/L Anion Gap (12-20) BUN (9-16) mg/dL Creatinine (0.5-1.4) mg/dL Estim Creat Clear Calc Estimated GFR Random Glucose (60-115) mg/dL Calcium (8.4-10.2) mg/dL Troponin I High Sens 5.9 (<3.5-35.0) ng/L <Mauricio Neal MD - Last Filed: 10/22/22 18:16> Independent Interpretation I performed an independent interpretation of an: EKG (sinus 70, no st or twave changes) and Plain X-Ray (no infiltrate) <Frantz Curtis MD - Last Filed: 10/22/22 16:53> Discharge Plan Discharge Clinical Impression: Chest pain, Costalchondritis <CHRIS Bailey - Last Filed: 10/22/22 13:43> Patient Disposition: Home, Self-Care <CHRIS Bailey - Last Filed: 10/22/22 13:43> Instructions: Chest Pain (ED), Costochondritis (ED) <CHRIS Bailey - Last Filed: 10/22/22 13:43> Additional Instructions: Your blood work was unremarkable. Your chest x-ray was normal. Your troponin was normal x2 values which is reassuring suggesting that you do not have any heart damage as the cause of your pain. Your left chest is tender over the joints of your chest, this is most likely caused by inflammation of the chest (costochondritis). Take ibuprofen 200 mg pills, 2 pills every 6 hours as needed for pain. Take Tylenol (acetaminophen) 500 mg pills, 2 pills every 4 to 6 hours as needed for pain. Follow-up with your doctor in 2 days. Please return to the emergency department if your symptoms get worse or if you develop any symptoms that are concerning to you. <CHRIS Bailey - Last Filed: 10/22/22 13:43> Prescriptions: New naproxen [Naprosyn] 500 mg tablet 500 mg PO BID Qty: 20 0RF No Action ropinirole 0.5 mg tablet 1 mg PO BID Qty: 120 6RF metformin 500 mg tablet 500 mg PO DAILY amlodipine 5 mg tablet 5 mg PO DAILY hydrochlorothiazide 12.5 mg tablet 12.5 mg PO DAILY atorvastatin 40 mg tablet 40 mg PO BEDTIME folic acid 1 mg tablet 1 mg PO DAILY amitriptyline 75 mg tablet 75 mg PO BEDTIME metoprolol tartrate 50 mg tablet 50 mg PO BID buspirone 30 mg tablet 30 mg PO (DME) FreeStyle Lite Strips Strip See Rx Instructions Not Applicable DAILY Qty: 10 Rx Instructions: As directed (DME) lancets [TRUEplus Lancets] 33 gauge misc See Rx Instructions .ROUTE DAILY Qty: 100 Rx Instructions: As directed tizanidine 4 mg tablet 6 mg PO TID PRN (Reason: muscle spasm) venlafaxine 75 mg capsule,extended release 24hr 75 mg PO DAILY bupropion HCl 100 mg tablet sustained-release 12 hr 100 mg PO QAM cholecalciferol (vitamin D3) 50 mcg (2,000 unit) capsule 50 mcg PO QAM furosemide 20 mg tablet 20 mg PO QAM tramadol 50 mg tablet 100 mg PO Q12H PRN aripiprazole 20 mg tablet 20 mg PO BEDTIME venlafaxine 150 mg capsule,extended release 24hr 150 mg PO DAILY gabapentin 100 mg capsule 300 mg PO Rx Instructions: 1 in AM, 2 in Evening. losartan 100 mg tablet 100 mg PO QAM risperidone 1 mg tablet 1 mg PO BEDTIME zolpidem 10 mg tablet 10 mg PO BEDTIME venlafaxine 37.5 mg capsule,extended release 24hr 37.5 mg PO DAILY lidocaine 5 % adhesive patch,medicated 1 patch topical DAILY Qty: 15 0RF Rx Instructions: leave on most painful area for up to 12 hrs sennosides [Natural Senna Laxative] 8.6 mg tablet 8.6 mg PO BEDTIME Qty: 90 3RF <CHRIS Bailey - Last Filed: 10/22/22 13:43> Referrals: Physician,Unknown J [Primary Care Provider] - 5 days <CHRIS Bailey - Last Filed: 10/22/22 13:43>
[2022-10-22 13:52] LABS: MANUAL DIFF FLAG NO
[2022-10-22 13:53] LABS: Basophils Percent Auto 0.6 % (0-2); Eosinophils Absolute Auto 0.1 X10*3/uL (0.0-0.4); Eosinophils Percent Auto 1.6 % (0-4); Hematocrit 43.1 % (42.0-52.0); Hemoglobin 14.4 g/dl (14.0-18.0); Imm Gran Abs Auto 0.02 X10*3/uL (0.00-0.03); Imm Gran Pct Auto 0.3 % (0.0-0.4); Lymphocytes Absolute Auto 2.6 X10*3/uL (1.2-4.9); Lymphocytes Percent Auto 37.8 % (20-40); Mean Corpuscular HGB Conc 33.4 g/dl (31.0-36.0); Mean Corpuscular Volume 83.7 fL (80.0-98.0); Monocytes Absolute Auto 0.6 X10*3/uL (0.1-1.2); Monocytes Percent Auto 8.4 % (2-11); Neutrophils Absolute Auto 3.5 x10*3/uL (2.0-8.3); Neutrophils Percent Auto 51.3 % (45-73); Platelet Count 170 X10*3/uL (160-400); Red Blood Count 5.15 X10*6/uL (4.60-5.80); Red Cell Distribution Width 13.1 % (11.0-16.0); White Blood Count 6.8 X10*3/uL (4.8-10.8)
[2022-10-22 14:14] LABS: Anion Gap 15 (12-20); Carbon Dioxide 25 mmol/L (22-29); Chloride 106 mmol/L (96-108); Creatinine Clr Calc Pharmacy 87.8; Estimated Glomerular Filt Rate > 60; Glucose Random 122 mg/dL (60-115); Potassium 4.5 mmol/L (3.3-5.1); Sodium 141 mmol/L (135-145)
[2022-10-22 14:15] LABS: Blood Urea Nitrogen 18 mg/dL (9-16)
[2022-10-22 14:22] LABS: Troponin-I High Sensitivity 5.1 ng/L (<3.5-35.0)
[2022-10-22 16:55] VITALS: BP 127/85; PULSE 79; TEMP 36.5; O2SAT 98
[2022-10-22 17:11] LABS: Troponin-I High Sensitivity 5.9 ng/L (<3.5-35.0)
== END 2022-10-22 18:34 | disposition home or self-care (01) ==
PROVIDERS: Emergency Medicine; Emergency Provider Emergency Medicine Emergency Medical Services
DX: R07.9 Chest pain, unspecified (principal); M94.0 Chondrocostal junction syndrome [Tietze]; E11.9 Type 2 diabetes mellitus without complications; I10 Essential (primary) hypertension; E78.5 Hyperlipidemia, unspecified; Z87.891 Personal history of nicotine dependence; Z79.02 Long term (current) use of antithrombotics/antiplatelets; Z79.899 Other long term (current) drug therapy; Z79.84 Long term (current) use of oral hypoglycemic drugs
CPT/HCPCS: 36415; 71046; 80048; 84484; 85025; 93005; 99283

== ENCOUNTER 2022-11-25 15:25 | Outpatient (REF) | payer MEDICAID, SELFPAY ==
--- NOTE | ~2022-11-25 | XR_ITS ---
EXAMINATION: XR CERVICAL SPINE CLINICAL INFORMATION: Neck pain. COMPARISON: 03/21/2017 and MRI of 09/25/2020. TECHNIQUE: 6 views of the cervical spine, inclusive of oblique views, were obtained. FINDINGS: No abnormal prevertebral soft tissue swelling is seen. No acute cervical spine fracture is noted. There is narrowing of the C6-C7 disc space with some mild spurring being present. There is mild anterior neural foraminal encroachment bilaterally at the C6-C7 disc space level related to spurring of the joints of Luschka. XR/XR cervical spine 5V IMPRESSION: Cervical spondylosis at the C6-C7 level as described.
== END 2022-11-25 15:26 | disposition home or self-care (01) ==
LOC: HO.XRAY 15:25
PROVIDERS: PCP Registered Nurse; Visit Provider Registered Nurse
DX: M54.2 Cervicalgia (principal)
CPT/HCPCS: 72050

== ENCOUNTER → 2022-11-28 12:42 | Outpatient (BNVA) | payer MEDICAID, SELFPAY | PROVIDERS: PCP Registered Nurse; Visit Provider Nurse Practitioner Family | DX: K21.9 Gastro-esophageal reflux disease without esophagitis (principal); K59.01 Slow transit constipation | CPT/HCPCS: 99212 ==

== ENCOUNTER → 2022-12-01 14:12 | Outpatient (BNVA) | payer MEDICAID, SELFPAY | PROVIDERS: PCP Registered Nurse; Visit Provider Nurse Practitioner Family | DX: G47.33 Obstructive sleep apnea (adult) (pediatric) (principal); G25.81 Restless legs syndrome; Z91.199 Patient's noncompliance with other medical treatment and regimen due to unspecified reason | CPT/HCPCS: 99212 ==

== ENCOUNTER 2023-03-08 09:35 | Outpatient (REF) | payer MEDICAID, SELFPAY ==
[2023-03-08 11:22] LABS: MANUAL DIFF FLAG NO
[2023-03-08 11:34] LABS: Basophils Percent Auto 0.5 % (0-2); Eosinophils Absolute Auto 0.1 X10*3/uL (0.0-0.4); Eosinophils Percent Auto 1.3 % (0-4); Hematocrit 43.1 % (42.0-52.0); Imm Gran Abs Auto 0.02 X10*3/uL (0.00-0.03); Imm Gran Pct Auto 0.3 % (0.0-0.4); Lymphocytes Absolute Auto 2.4 X10*3/uL (1.2-4.9); Lymphocytes Percent Auto 30.4 % (20-40); Mean Corpuscular HGB Conc 32.5 g/dl (31.0-36.0); Mean Corpuscular Hemoglobin 28.1 pg (27.0-33.0); Mean Corpuscular Volume 86.5 fL (80.0-98.0); Mean Platelet Volume 11.9 fL (9.4-12.4); Monocytes Absolute Auto 0.7 X10*3/uL (0.1-1.2); Monocytes Percent Auto 8.2 % (2-11); Neutrophils Absolute Auto 4.7 x10*3/uL (2.0-8.3); Neutrophils Percent Auto 59.3 % (45-73); Platelet Count 161 X10*3/uL (160-400); Red Blood Count 4.98 X10*6/uL (4.60-5.80); Red Cell Distribution Width 13.2 % (11.0-16.0); White Blood Count 7.9 X10*3/uL (4.8-10.8)
[2023-03-08 12:06] LABS: Erythrocyte Sedimentation Rate 18 MM/HR (0-15)
[2023-03-08 12:22] LABS: C Reactive Protein 5.78 mg/dL (< or = 0.50); Uric Acid 7.1 mg/dL (3.4-7.0)
== END 2023-03-08 09:36 | disposition home or self-care (01) ==
LOC: HO.HHCL 09:35
PROVIDERS: Visit Provider Registered Nurse
DX: M19.90 Unspecified osteoarthritis, unspecified site (principal)
CPT/HCPCS: 36415; 84550; 85025; 85652; 86140

== ENCOUNTER 2023-04-07 10:44 | Outpatient (REF) | payer MEDICAID, SELFPAY ==
[2023-04-07 11:32] LABS: MANUAL DIFF FLAG NO
[2023-04-07 11:51] LABS: Basophils Absolute Auto 0.1 X10*3/uL (0.0-0.2); Basophils Percent Auto 0.6 % (0-2); Eosinophils Absolute Auto 0.2 X10*3/uL (0.0-0.4); Hematocrit 44.2 % (42.0-52.0); Hemoglobin 14.4 g/dl (14.0-18.0); Imm Gran Abs Auto 0.04 X10*3/uL (0.00-0.03); Imm Gran Pct Auto 0.4 % (0.0-0.4); Lymphocytes Absolute Auto 2.8 X10*3/uL (1.2-4.9); Lymphocytes Percent Auto 31.1 % (20-40); Mean Corpuscular HGB Conc 32.6 g/dl (31.0-36.0); Mean Corpuscular Hemoglobin 28.1 pg (27.0-33.0); Mean Corpuscular Volume 86.2 fL (80.0-98.0); Monocytes Absolute Auto 0.6 X10*3/uL (0.1-1.2); Monocytes Percent Auto 6.1 % (2-11); Neutrophils Absolute Auto 5.4 x10*3/uL (2.0-8.3); Neutrophils Percent Auto 59.8 % (45-73); Platelet Count 164 X10*3/uL (160-400); Red Blood Count 5.13 X10*6/uL (4.60-5.80); Red Cell Distribution Width 13.4 % (11.0-16.0)
[2023-04-07 12:09] LABS: Estimated Average Glucose 126 mg/dL
[2023-04-07 13:19] LABS: Alanine Aminotransferase 22 U/L (0-40); Albumin Level 4.1 g/dL (3.5-5.0); Alkaline Phosphatase 118 U/L (39-117); Anion Gap 11 (12-20); Aspartate Amino Transferase 17 U/L (5-37); Blood Urea Nitrogen 24 mg/dL (9-16); Calcium 9.4 mg/dL (8.4-10.2); Carbon Dioxide 25 mmol/L (22-29); Chloride 107 mmol/L (96-108); Estimated Glomerular Filt Rate > 60; Glucose Random 103 mg/dL (60-115); Potassium 4.1 mmol/L (3.3-5.1); Sodium 139 mmol/L (135-145); Total Protein 7.4 g/dL (6.5-8.0)
[2023-04-07 13:30] LABS: Bilirubin Total 0.3 mg/dL (0.0-1.0)
[2023-04-10 20:58] LABS: TS Negative Control Passed; TS Panel A 0; TS Panel B 0; TS Positive Control Passed; TSpotTB Negative (Negative)
== END 2023-04-07 10:45 | disposition home or self-care (01) ==
LOC: HO.HHCL 10:44
PROVIDERS: Visit Provider Internal Medicine
DX: Z11.1 Encounter for screening for respiratory tuberculosis (principal); L40.9 Psoriasis, unspecified
CPT/HCPCS: 36415; 80053; 83036; 85025; 86481

== ENCOUNTER 2023-04-13 15:23 | Outpatient (REF) | payer MEDICAID, SELFPAY ==
[2023-04-13 17:45] LABS: Prostate Specific Antigen 0.74 ng/mL (<0.05-4.0)
== END 2023-04-13 15:24 | disposition home or self-care (01) ==
LOC: HO.HHCL 15:23
PROVIDERS: Visit Provider Registered Nurse
DX: Z12.5 Encounter for screening for malignant neoplasm of prostate (principal)
CPT/HCPCS: 36415; 84153

== ENCOUNTER 2023-04-25 14:40 | Outpatient (REF) | payer MEDICAID, SELFPAY ==
--- NOTE | ~2023-04-25 | XR_ITS ---
EXAMINATION: XR SHOULDER, LEFT CLINICAL INFORMATION: Left shoulder pain status post injury. COMPARISON: Left shoulder radiographs dated 05/17/2018. TECHNIQUE: AP external rotation, Grashey, scapular Y, and axillary views of the left shoulder. FINDINGS: There is no acute fracture or dislocation. The left acromioclavicular and glenohumeral joints are intact. The visualized left ribs are intact. Again seen as its expansile lytic lesion in the proximal left humeral diaphysis, partially visualized. There is also an adjacent osseous protuberance medially. Possible soft tissue fullness/nodules medially. XR/XR shoulder LT min 2V IMPRESSION: 1. No acute left shoulder abnormality. 2. 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 Osseous protuberance medially appears more pronounced. Possible soft tissue fullness/nodularity medially overlying the axilla. Correlate with physical exam. If there is concern for mass, contrast-enhanced MRI of the left upper arm/humerus is recommended.
== END 2023-04-25 14:41 | disposition home or self-care (01) ==
LOC: HO.HHCX 14:40
PROVIDERS: Visit Provider Nurse Practitioner Primary Care
DX: M25.512 Pain in left shoulder (principal)
CPT/HCPCS: 73030

== ENCOUNTER 2023-05-12 10:19 | Outpatient (AMB) | payer MEDICAID, SELFPAY ==
--- NOTE | 2023-05-12 10:26 | A.OFFVIS_ITS ---
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 Patient reports he fell landing on his left side injurying left shoulder. Seen at ED and also by his PCP who ordered xrays and Rx'd P.T. He started P.T yesterday. Currently complaining of limited ROM, sharp pain all around his shoulder and difficulty sleeping. Denies neck pain. He has numbness and tingling in both hands and feet due to Hx of back problems. 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 He was seen at ED and also by his PCP where x-rays were ordered and he was prescribed physical therapy which he started yesterday. He states he has limited ROM and sharp pain all around his shoulder which is aggravated with sleeping. He denies neck pain. He also c/o numbness and tingling in his bilateral hands and feet which he attributes to his history of back problems. [facility] Medical History Cardiomyopathy Diabetes Disc degeneration, lumbar Elevated cholesterol HTN (hypertension) Internal hemorrhoid Radiculopathy, lumbar region Sleep apnea Spondylosis of cervical spine Spondylosis of lumbar spine Tubular adenoma Surgical History H/O colonoscopy Hernia History of hernia repair Hx of cardiac catheterization Hx of knee surgery Family History Father HTN (hypertension) Diabetes Mother Diabetes HTN (hypertension) Heart disease Social History (Updated 05/12/23 @ 10:40 by ERIC Jiménez) Household Members: Family Alcohol intake: former Patient Tobacco Use Status: Former Tobacco user Tobacco use type: Cigarette 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 Review of Systems Const All systems reviewed & are unremarkable except as noted in HPI and below Physical Exam Vital Signs: BMI result Body Mass Index 34.2 Const General: cooperative, healthy appearing, comfortable, no acute distress, well developed and alert Orientation/consciousness: patient oriented x3 HEENT Head: Yes normal to inspection, Yes normocephalic and Yes atraumatic Eyes General: appearance normal, both eyes and all related structures Resp Effort & Inspection: normal respiratory effort and able to speak in complete sentences Cardio Rate: regular rate Peripheral pulses: Peripheral pulses 2+ throughout GI Palpation (GI): Soft to palpation Skin Lesions: no lesions Rashes: no rashes Neuro General: patient oriented x3 Extrem Other: Left shoulder normal to inspection. Tenderness over the bicipital groove and along the deltoid region of the shoulder. Forward flexion to 30 degrees, external rotation against resistance, internal rotation to S1. He has significant weakness with empty can testing. Negative Rios and cross body abduction. NVI. Results Reviewed Results Reviewed: XR left shoulder 04/25/23 IMPRESSION: 1. No acute left shoulder abnormality. 2. 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 Osseous protuberance medially appears more pronounced. Possible soft tissue fullness/nodularity medially overlying the axilla. Correlate with physical exam. If there is concern for mass, contrast-enhanced MRI of the left upper arm/humerus is recommended. Assessment & Plan Assessment & Plan (1) Injury of left rotator cuff: Code(s): S46.002A - Unspecified injury of muscle(s) and tendon(s) of the rotator cuff of left shoulder, initial encounter Qualifiers: Encounter type: initial encounter Qualified Code(s): S46.002A - Unspecified injury of muscle(s) and tendon(s) of the rotator cuff of left shoulder, initial encounter (2) Bone cyst of left humerus: Code(s): M85.622 - Other cyst of bone, left upper arm Plan An MRI of the left shoulder will be obtained to further evaluate the integrity of the RTC. We will also obtain an MRI of the left humerus with contrast to further evaluate the etiology of the cystic lesion within the humerus found in the x-rays. He is content with this plan and will follow-up once the scan is complete. Patient Instructions: Scribed for Zak Scott PA-C, by marjorie Mcelroy scribe, on 05/12/2023 at 10:30 AM Zak VICTORIA PA-C, have personally reviewed and agree with the information entered by the scribe. Coding Level of Care Code New Pt Level 3 (17609) Diagnoses Injury of left rotator cuff, initial encounter S46.002A Encounter type: initial encounter Bone cyst of left humerus M85.622
[2023-05-12 10:39] VITALS: BMI 34.2
== END 2023-05-12 11:28 | disposition home or self-care (01) ==
PROVIDERS: PCP Registered Nurse; Visit Provider Physician Assistant
DX: S46.002A Unspecified injury of muscle(s) and tendon(s) of the rotator cuff of left shoulder, initial encounter (principal); M85.622 Other cyst of bone, left upper arm
CPT/HCPCS: 99203

== ENCOUNTER → 2023-05-12 10:19 | Outpatient (BNVA) | payer MEDICAID, SELFPAY | PROVIDERS: PCP Registered Nurse; Visit Provider Physician Assistant | DX: S46.002A Unspecified injury of muscle(s) and tendon(s) of the rotator cuff of left shoulder, initial encounter (principal); M85.622 Other cyst of bone, left upper arm | CPT/HCPCS: 99212 ==

== ENCOUNTER 2023-06-07 14:16 | Outpatient (AMB) | payer MEDICAID, SELFPAY ==
[2023-06-07 14:22] VITALS: BP 116/82; PULSE 82; O2SAT 96; BMI 34.1
--- NOTE | 2023-06-07 14:22 | A.OFFVIS_ITS ---
Intake Vital Signs 06/07/23 14:22 Height 5 ft 6 in Weight 211 lb BMI 34.1 BP 116/82 Blood Pressure Location Lt brachial Position Sitting Pulse 82 Pulse Source Pulse Oximeter Pulse Oximetry (%) 96 Oxygen Delivery Method Room Air Intake Visit Reasons: 6m follow up FRANCESCO - Confirmed Intake Note: Pt presents to the office today for a 6 month follow up for FRANCESCO. Pt states he is using the CPAP but he states he is still having trouble sleeping. Pt states he wakes up every 2 hours. Allergies No Known Allergies [No Known Allergies*] Allergy (Verified 06/07/23 14:24) Medication List - Last Reconciled 06/07/23 by Juliana Riley CNP amitriptyline 75 mg PO BEDTIME amlodipine 5 mg PO DAILY aripiprazole 30 mg PO BEDTIME atorvastatin 40 mg PO BEDTIME blood sugar diagnostic (FreeStyle Lite Strips) As directed bupropion HCl 100 mg PO QAM buspirone 30 mg PO cholecalciferol (vitamin D3) 50 mcg PO QAM folic acid 1 mg PO DAILY furosemide 20 mg PO QAM gabapentin 300 mg PO hydrochlorothiazide 12.5 mg PO DAILY hydrocortisone 2.5% (Proctosol HC) 1 appl SC BID-QID PRN ibuprofen 400 mg PO TID PRN lancets (TRUEplus Lancets) As directed lidocaine 5% 1 patch topical DAILY losartan 100 mg PO QAM metformin 500 mg PO DAILY metoprolol tartrate 50 mg PO BID risperidone 1 mg PO BEDTIME ropinirole 1 mg (2 x 0.5 mg) PO BID sennosides (Natural Senna Laxative) 8.6 mg PO BEDTIME tizanidine 6 mg PO TID PRN tramadol 100 mg PO Q12H PRN venlafaxine ER 150 mg PO DAILY venlafaxine ER 75 mg PO DAILY venlafaxine ER 37.5 mg PO DAILY zolpidem 5 mg PO BEDTIME HPI HPI Comments History of Present Illness Details 57 y/o male patient presents for follow up of FRANCESCO. Pt reports he uses CPAP nightly but his compliance unavailable. Request to [employer] for compliance but not available yet. Pt reports he has not received CPAP supplies. His original CPAP was recalled and [employer] replaced it and it is Phil[facility]. He sleeps better with gabapentin and ropinirole, but still can sleep only 2-3 hrs. He reduced ambien to 5 mg and tried to cut down his psych medications. Pt watches TV before bedtime, not having routine sleep schedule. [facility] Medical History Internal hemorrhoid Tubular adenoma Cardiomyopathy Elevated cholesterol Sleep apnea Diabetes HTN (hypertension) Radiculopathy, lumbar region Disc degeneration, lumbar Spondylosis of lumbar spine Spondylosis of cervical spine Surgical History History of hernia repair Hx of cardiac catheterization H/O colonoscopy Hx of knee surgery Hernia Family History Father HTN (hypertension) Diabetes Mother Diabetes HTN (hypertension) Heart disease Social History Household Members: Family Alcohol intake: former Patient Tobacco Use Status: Former Tobacco user Tobacco use type: Cigarette 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 Review of Systems Const All systems reviewed & are unremarkable except as noted in HPI and below Physical Exam Vital Signs: Last Vital Signs Pulse 82 06/07/23 14:22 BP 116/82 06/07/23 14:22 Pulse Ox 96 06/07/23 14:22 Oxygen Delivery Method Room Air 06/07/23 14:22 BMI result Body Mass Index 34.1 Const General: cooperative Nutritional Appearance: obese Orientation/consciousness: patient oriented x3 Limitations: language barrier (haitian speaking only) Neck Neck: Yes full ROM and Yes supple Resp Effort & Inspection: normal respiratory effort and able to speak in complete sentences Neuro General: patient oriented x3, gait normal, moves all extremities and CN's II-XI intact bilaterally Psych Appearance: grossly normal Mental Status: mental status grossly normal Speech and movement: Normal speech and movement present Assessment & Plan Assessment & Plan (1) Obstructive sleep apnea: Code(s): G47.33 - Obstructive sleep apnea (adult) (pediatric) (2) Restless legs syndrome: Code(s): G25.81 - Restless legs syndrome Plan Continue to take Ropinirole 0.5 mg, 2 tabs at noon and q HS. Continue to take gabapentin 300 mg qHS. Stressed compliance, use CPAP nightly and more than 4 hours. Requested CPAP compliance to [employer] and CPAP supply prescription sent. Advised patient to limit electronic use before bedtime and practice good sleep hygiene. Coding Level of Care Code Est Pt Level 3 (10904) Diagnoses Obstructive sleep apnea G47.33 Restless legs syndrome G25.81
== END 2023-06-07 14:56 | disposition home or self-care (01) ==
PROVIDERS: Visit Provider Nurse Practitioner Family
DX: G47.33 Obstructive sleep apnea (adult) (pediatric) (principal); G25.81 Restless legs syndrome
CPT/HCPCS: 99213

== ENCOUNTER → 2023-06-07 14:16 | Outpatient (BNVA) | payer MEDICAID, SELFPAY | PROVIDERS: Visit Provider Nurse Practitioner Family | DX: G47.33 Obstructive sleep apnea (adult) (pediatric) (principal); R40.0 Somnolence; G25.81 Restless legs syndrome; Z99.89 Dependence on other enabling machines and devices | CPT/HCPCS: 99212 ==

== ENCOUNTER 2023-07-12 10:57 | Outpatient (REF) | payer MEDICAID, SELFPAY ==
--- NOTE | ~2023-07-12 | XR_ITS ---
EXAMINATION: XR KNEE, RIGHT XR KNEE, STANDING, BILATERAL CLINICAL INFORMATION: Pain. COMPARISON: X-ray 07/01/2016, 05/23/2016 TECHNIQUE: AP bilateral knees one view. Right knee 2 views. FINDINGS: RIGHT KNEE: No acute fracture or dislocation. Redemonstrated are osteochondromas in the distal femur, proximal tibia and fibular metaphysis. These appear similar as compared to previous. No radiographic evidence of complications. No evidence of acute fracture. Joint spaces are relatively maintained. LEFT KNEE: No acute osseous abnormality seen on the frontal projection. Joint spaces are maintained. Osteochondromas in the distal femur, proximal tibia, and proximal fibular metaphysis, appear similar as compared to previous. No radiographic evidence of complications. XR/XR knee RT 2V IMPRESSION: RIGHT KNEE: No acute osseous findings. Multiple osteochondromas, appear similar as compared to previous. LEFT KNEE: No acute osseous findings. Multiple osteochondromas, appearing similar as compared to previous.
--- NOTE | ~2023-07-12 | XR_ITS ---
EXAMINATION: XR KNEE, RIGHT XR KNEE, STANDING, BILATERAL CLINICAL INFORMATION: Pain. COMPARISON: X-ray 07/01/2016, 05/23/2016 TECHNIQUE: AP bilateral knees one view. Right knee 2 views. FINDINGS: RIGHT KNEE: No acute fracture or dislocation. Redemonstrated are osteochondromas in the distal femur, proximal tibia and fibular metaphysis. These appear similar as compared to previous. No radiographic evidence of complications. No evidence of acute fracture. Joint spaces are relatively maintained. LEFT KNEE: No acute osseous abnormality seen on the frontal projection. Joint spaces are maintained. Osteochondromas in the distal femur, proximal tibia, and proximal fibular metaphysis, appear similar as compared to previous. No radiographic evidence of complications. XR/XR knee standing BI IMPRESSION: RIGHT KNEE: No acute osseous findings. Multiple osteochondromas, appear similar as compared to previous. LEFT KNEE: No acute osseous findings. Multiple osteochondromas, appearing similar as compared to previous.
== END 2023-07-12 10:58 | disposition home or self-care (01) ==
LOC: HO.HOSX 10:57
PROVIDERS: Visit Provider Physician Assistant
DX: M17.11 Unilateral primary osteoarthritis, right knee (principal); M25.562 Pain in left knee
CPT/HCPCS: 73560; 73565; 99212

== ENCOUNTER 2023-07-12 13:09 | Outpatient (AMB) | payer MEDICAID, SELFPAY ==
--- NOTE | 2023-07-12 13:26 | A.OFFVIS_ITS ---
Intake Vital Signs 07/12/23 13:27 Height 5 ft 6 in Weight 211 lb BMI 34.1 Intake Visit Reasons: New Prob- Infammation of joint of right knee Intake Note: Davidson a 57 year old Ugandan speaking male presents today for an evaluation of right knee. Patient reports for the last 2 months he has been experiencing pain, swelling, and redness in his knee. States pain is worse with walking and is located around his kneecap. Denies injury. No other tx. Spot Washer Name: Joseluis ID#[id number] Allergies No Known Allergies [No Known Allergies*] Allergy (Verified 07/12/23 13:37) HPI New Prob- Infammation of joint of right knee 2 HPI Details 57-year-old male who presents to the off ice today with an neck skewer for evaluation of right knee pain for 2 months. He states he has pain, swelling and redness around the kneecap of his knee which is aggravated with ambulation and in the mornings. He denies any recent injury and has not had treatment in the past. [facility] Medical History Internal hemorrhoid Tubular adenoma Cardiomyopathy Elevated cholesterol Sleep apnea Diabetes HTN (hypertension) Radiculopathy, lumbar region Disc degeneration, lumbar Spondylosis of lumbar spine Spondylosis of cervical spine Surgical History History of hernia repair Hx of cardiac catheterization H/O colonoscopy Hx of knee surgery Hernia Family History Father HTN (hypertension) Diabetes Mother Diabetes HTN (hypertension) Heart disease Social History Household Members: Family Alcohol intake: former Patient Tobacco Use Status: Former Tobacco user Tobacco use type: Cigarette 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 Retropatellar tenderness present. Full ROM with crepitus. Negative Gentry?s. No ligamentous laxity. NVI. Results Reviewed Results Reviewed: /XR knee standing BI IMPRESSION: RIGHT KNEE: No acute osseous findings. Multiple osteochondromas, appear similar as compared to previous. LEFT KNEE: No acute osseous findings. Multiple osteochondromas, appearing similar as compared to previous. Assessment & Plan Assessment & Plan (1) Patellofemoral arthritis of right knee: Code(s): M17.11 - Unilateral primary osteoarthritis, right knee Plan We discussed options which include PT, NSAIDs and injections. The patient will defer on the injection today and proceed with PT and NSAIDs. If symptoms persist, the patient will contact me for an injection, otherwise, PRN. Orders: Orders XR knee RT 2V 07/12/23 M25.569 - Pain in unspecified knee XR knee standing BI 07/12/23 M25.561 - Pain in right knee, M25.562 - Pain in left knee PT Evaluation and Treatment 07/12/23 M17.11 - Unilateral primary osteoarthritis, right knee Patient Instructions: Scribed for Zak Scott PA-C, by Chato Vee chief medical physicist, on 07/12/2023 at 1:30 PM LAXMI. Zak Biswas PA-C, have personally reviewed and agree with the information entered by the scribe. Coding Level of Care Code Est Pt Level 3 (21888) Diagnoses Patellofemoral arthritis of right knee M17.11
[2023-07-12 13:27] VITALS: BMI 34.1
== END 2023-07-12 13:58 | disposition home or self-care (01) ==
PROVIDERS: PCP Registered Nurse; Visit Provider Physician Assistant
DX: M17.11 Unilateral primary osteoarthritis, right knee (principal)
CPT/HCPCS: 99213

== ENCOUNTER 2023-11-09 15:10 | Outpatient (REF) | payer MEDICAID, SELFPAY ==
[2023-11-09 16:27] LABS: Anion Gap 14 (12-20); Blood Urea Nitrogen 18 mg/dL (9-16); Calcium 9.2 mg/dL (8.4-10.2); Carbon Dioxide 22 mmol/L (22-29); Chloride 106 mmol/L (96-108); Cholesterol 200 mg/dL (<200); Estimated Glomerular Filt Rate > 60; Glucose Random 89 mg/dL (60-115); HDL Cholesterol 34 mg/dL (>40); LDL Cholesterol Calculated 143 mg/dL (<100); Potassium 4.1 mmol/L (3.3-5.1); Sodium 138 mmol/L (135-145); Triglycerides 116 mg/dL (<150)
[2023-11-09 18:18] LABS: Creatinine Urine 161.57 mg/dL; Microalbum/Creatinine Ratio Ur 3.7 ug/mg cr (<30)
[2023-11-10 04:36] LABS: HBS Num1 0.01 mIU/mL (0-7.99); HBc Num1 0.06 S/CO (0.00-0.79); HBsAGNum1 0.39 S/CO (0.00-0.99); HIV AB/AG Nonreactive (Nonreactive); HIV Num 1 0.05 S/CO (0.00-0.99); Hepatitis B Core Antibody Nonreactive (Nonreactive); Hepatitis B Surface Antigen Negative (Negative); ~Hepatitis B Surface Antibody NONREACTIVE (Nonreactive); ~Hepatitis C Antibody Nonreactive (Nonreactive)
== END 2023-11-09 15:11 | disposition home or self-care (01) ==
LOC: HO.LAB 15:10
PROVIDERS: PCP Nurse Practitioner; Visit Provider Nurse Practitioner
DX: Z11.3 Encounter for screening for infections with a predominantly sexual mode of transmission (principal); Z11.4 Encounter for screening for human immunodeficiency virus [HIV]; E66.09 Other obesity due to excess calories; Z68.33 Body mass index [BMI] 33.0-33.9, adult; I10 Essential (primary) hypertension
CPT/HCPCS: 36415; 80048; 80061; 82043; 82570; 86704; 86706; 86803; 87340; 87389

== ENCOUNTER 2023-11-17 10:13 | Outpatient (AMB) | payer MEDICAID, SELFPAY ==
--- NOTE | 2023-11-17 10:41 | MHC.OFFVIS ---
Intake Vital Signs 11/17/23 10:43 Height 5 ft 6 in Weight 206 lb 8 oz BMI 33.3 BP 124/78 Blood Pressure Location Rt brachial Position Sitting Pulse 79 Pulse Source Pulse Oximeter Pulse Oximetry (%) 93 Oxygen Delivery Method Room Air Intake Visit Reasons: f/u appt - LVM w/address Intake Note: Pt presnts for follow up for FRANCESCO. Appeals And Generalist Clerk Required: Yes Appeals And Generalist Clerk Name: VITALY Loya Allergies No Known Allergies [No Known Allergies*] Allergy (Verified 11/17/23 10:46) HPI HPI Comments History of Present Illness Details 57 y/o male patient presents for follow up of FRANCESCO on CPAP. The CPAP compliance and tehrapy response (08/19/24-11/16/23) reviewed. He is on APAP [id number]. The usage days 93% and the average usage hours 6 hrs 10 min. The max pressures was 11.7/hr and the AHI was 2.7/hr. He reduced ambien to 5 mg, and takes ropinirole 1 mg BID for restless legs. Pt reports he sleeps better, snores less and daytime sleepiness has improved. [facility] Medical History Internal hemorrhoid Tubular adenoma Cardiomyopathy Elevated cholesterol Sleep apnea Diabetes HTN (hypertension) Radiculopathy, lumbar region Disc degeneration, lumbar Spondylosis of lumbar spine Spondylosis of cervical spine Surgical History History of hernia repair Hx of cardiac catheterization H/O colonoscopy Hx of knee surgery Hernia Family History Father HTN (hypertension) Diabetes Mother Diabetes HTN (hypertension) Heart disease Social History Household Members: Family Alcohol intake: former Patient Tobacco Use Status: Former Tobacco user Tobacco use type: Cigarette 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 Review of Systems Const All systems reviewed & are unremarkable except as noted in HPI and below Physical Exam Vital Signs: Last Vital Signs Pulse 79 11/17/23 10:43 BP 124/78 11/17/23 10:43 Pulse Ox 93 11/17/23 10:43 Oxygen Delivery Method Room Air 11/17/23 10:43 BMI result Body Mass Index 33.3 Const General: cooperative Nutritional Appearance: obese Orientation/consciousness: patient oriented x3 Limitations: language barrier (south african speaking only) Neck Neck: Yes full ROM and Yes supple Resp Effort & Inspection: normal respiratory effort and able to speak in complete sentences Neuro General: patient oriented x3, gait normal, moves all extremities and CN's II-XI intact bilaterally Psych Appearance: grossly normal Mental Status: mental status grossly normal Speech and movement: Normal speech and movement present Assessment & Plan Assessment & Plan (1) Obstructive sleep apnea: Code(s): G47.33 - Obstructive sleep apnea (adult) (pediatric) (2) Restless legs syndrome: Code(s): G25.81 - Restless legs syndrome Plan Continue to take Ropinirole 0.5 mg, 2 tabs at noon and q HS. Continue to take gabapentin 300 mg qHS. Stressed compliance, use CPAP nightly and more than 4 hours. Advised patient to limit electronic use before bedtime and practice good sleep hygiene. Coding Level of Care Code Est Pt Level 3 (99029) Diagnoses Obstructive sleep apnea G47.33 Restless legs syndrome G25.81
[2023-11-17 10:43] VITALS: BP 124/78; PULSE 79; O2SAT 93; BMI 33.3
== END 2023-11-17 11:04 | disposition home or self-care (01) ==
PROVIDERS: PCP Registered Nurse; Visit Provider Nurse Practitioner Family
DX: G47.33 Obstructive sleep apnea (adult) (pediatric) (principal); G25.81 Restless legs syndrome
CPT/HCPCS: 99213

== ENCOUNTER → 2023-11-17 10:13 | Outpatient (BNVA) | payer MEDICAID, SELFPAY | PROVIDERS: PCP Registered Nurse; Visit Provider Nurse Practitioner Family | DX: G47.33 Obstructive sleep apnea (adult) (pediatric) (principal); G25.81 Restless legs syndrome; Z99.89 Dependence on other enabling machines and devices | CPT/HCPCS: 99212 ==

== ENCOUNTER 2023-11-29 11:53 | Outpatient (AMB) | payer MEDICAID, SELFPAY ==
--- NOTE | 2023-11-29 11:54 | A.OFFVIS_ITS ---
Intake Vital Signs 11/29/23 11:55 Height 5 ft 6 in Weight 206 lb BMI 33.2 BP 134/86 Blood Pressure Location Lt brachial Position Sitting Pulse 71 Pulse Source Pulse Oximeter Pulse Oximetry (%) 99 Oxygen Delivery Method Room Air Intake Visit Reasons: 1 yr follow up Intake Note: pt here for 1yr follow up, no concern. 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 Staying upright for minimal 3 hours after meals discussed with patient. Patient is not on any PPI, reports that his symptoms of acid reflux are much better now that he is moving his bowels well. Constipation History of constipation now taking senna every night. Patient states that he is moving his bowels without any issues. Patient reports occasionally he feels like he might have hemorrhoids will send script to pharmacy. Patient denies any rectal pain or bleeding. Patient was encouraged to increase activity, walking to promote better bowel motility. Patient does have trouble with his back and is unable to perform vigorous exercise. Patient will return in 1 year, sooner on as needed basis. Patient is agreeable to this plan and verbalizes understanding of instructions. He was given the opportunity to ask questions and all questions answered. ? Thank you for allowing me to participate in his care Plan Medications New hydrocortisone 2.5% (Proctosol HC) 1 appl [place] BID-QID PRN 30 grams 2RF hemorrhoids K64.9 - Unspecified hemorrhoids Refilled sennosides (Natural Senna Laxative) 8.6 mg PO BEDTIME 90 tabs 3RF constipation K59.00 - Constipation, unspecified TODAY'S VISIT Patient is here today for follow-up. Patient reports that he has been doing well since last time I have seen him. Patient lost few lb. Has been moving his bowels well. Take Senokot daily. Patient reports that his PCP is prescribing that to him right now. Patient denies any melena, hematochezia, unintentional weight loss or ribbon like stools. Denies any dyspepsia, dysphagia or odynophagia. Reports occasional palpitations, however he thinks that it is related to stress. Patient denies any chest pain. He believes he saw cardiology in [place] and would like to be in [place]. Patient had suboptimal prep and 1 polyp on colonoscopy in June of 2021 and was told to repeat colonoscopy in 4 years. Patient will be due to go next year in June, sooner if clinically necessary. Today patient reports to be feeling well and denies any GI concerning symptoms PFSH Medical History Internal hemorrhoid Tubular adenoma Cardiomyopathy Elevated cholesterol Sleep apnea Diabetes HTN (hypertension) Radiculopathy, lumbar region Disc degeneration, lumbar Spondylosis of lumbar spine Spondylosis of cervical spine Surgical History History of hernia repair Hx of cardiac catheterization H/O colonoscopy Hx of knee surgery Hernia Family History Father HTN (hypertension) Diabetes Mother Diabetes HTN (hypertension) Heart disease Social History Household Members: Family Alcohol intake: former Patient Tobacco Use Status: Former Tobacco user Tobacco use type: Cigarette 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 Review of Systems Const Denies weight gain and Denies weight loss ENT Reports no additional complaints, Denies dysphagia and Denies odynophagia Card Details: Palpitations Reports no additional complaints Resp Reports no additional complaints GI Denies abdominal pain, Denies belching, Denies melena, Denies bloating, Denies change in bowel habits, Denies dysphagia, Denies excessive flatus, Denies dyspepsia, Denies heartburn, Denies diarrhea, Denies loose stools, Denies nausea, Denies odynophagia and Denies vomiting Reports no additional complaints Musc Reports no additional complaints Neuro Reports no additional complaints Psych Reports no additional complaints Endo Reports no additional complaints Physical Exam Vital Signs: Last Vital Signs Pulse 71 11/29/23 11:55 BP 134/86 11/29/23 11:55 Pulse Ox 99 11/29/23 11:55 Oxygen Delivery Method Room Air 11/29/23 11:55 BMI result Body Mass Index 33.2 Const General: healthy appearing, no acute distress and well developed Nutritional Appearance: well nourished Orientation/consciousness: patient oriented x3 Resp Effort & Inspection: normal respiratory effort, able to speak in complete sentences, no tracheal deviation and symmetric chest movement Auscultation: clear to auscultation bilaterally Cardio Rate: regular rate GI Inspection: Yes normal to inspection and No distended Palpation (GI): Soft to palpation, not firm, nontender and No hepatosplenomegaly present Auscultation: normal bowel sounds General: Yes no CVA tenderness Back/Spine/Pelvis Back: no CVA tenderness Skin General skin exam: elasticity normal, turgor normal and dry skin Neuro General: patient oriented x3 Psych Appearance: grossly normal Mental Status: mental status grossly normal Assessment & Plan Assessment & Plan (1) GERD (gastroesophageal reflux disease): Code(s): K21.9 - Gastro-esophageal reflux disease without esophagitis Qualifiers: Esophagitis presence: esophagitis presence not specified Qualified Code(s): K21.9 - Gastro-esophageal reflux disease without esophagitis (2) Constipation: Code(s): K59.00 - Constipation, unspecified Qualifiers: Constipation type: slow transit constipation Qualified Code(s): K59.01 - Slow transit constipation Plan Patient will continue taking senna daily. Encouraged to increase fluid intake and activity to promote better bowel motility. Continue avoiding dietary triggers and late night snacking. Staying upright for minimum 3 hours after meals discussed with patient. Patient reports to have palpitation without any chest pain. Does report occasional shortness of breath with or without exertion . Will send patient to see a wrapping machine operator. He will be due to go for colonoscopy next year we will make sure that he is clear for the procedure. Patient reports that these symptoms are new. I will see patient in 1 year, sooner on as needed basis. Patient is agreeable to this plan and verbalizes understanding of instructions. He was given the opportunity to ask questions and all questions answered. Thank you for allowing me to participate in his care Orders: Referrals Cardiology Referral R00.2 - Palpitations Coding Level of Care Code Est Pt Level 3 (95860) Diagnoses Gastroesophageal reflux disease, unspecified whether esophagitis present K21.9 Esophagitis presence: esophagitis presence not specified Slow transit constipation K59.01 Constipation type: slow transit constipation Time Spent (min) 25 Comment 15 minutes spent with patient and additional 10 minutes spent reviewing his records
[2023-11-29 11:55] VITALS: BP 134/86; PULSE 71; O2SAT 99; BMI 33.2
== END 2023-11-29 12:20 | disposition home or self-care (01) ==
PROVIDERS: Visit Provider Nurse Practitioner Family
DX: K21.9 Gastro-esophageal reflux disease without esophagitis (principal); K59.01 Slow transit constipation
CPT/HCPCS: 99213

== ENCOUNTER → 2023-11-29 11:53 | Outpatient (BNVA) | payer MEDICAID, SELFPAY | PROVIDERS: Visit Provider Nurse Practitioner Family | DX: K21.9 Gastro-esophageal reflux disease without esophagitis (principal); K59.01 Slow transit constipation; R00.2 Palpitations | CPT/HCPCS: 99212 ==

== ENCOUNTER 2024-02-05 13:50 | Outpatient (AMB) | payer MEDICAID, SELFPAY ==
--- NOTE | 2024-02-05 13:51 | MHC.OFFVIS ---
Vital Signs 02/05/24 13:59 Height 5 ft 6 in Weight 209 lb BMI 33.7 BP 156/93 H Blood Pressure Location Rt brachial Position Sitting Pulse 77 Intake Visit Reasons: skin cyst right chest Intake Note: Patient referred by Dr. Hill for cyst on Rt chest. Present for yrs. Patient c/o: site enlarging. Worried it is getting deeper. 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 Accompanied by: Self / Same As Patient Allergies No Known Allergies [No Known Allergies*] Allergy (Verified 02/05/24 13:59) Medication List - Last Reconciled 02/05/24 by Prince Tafoya MD amitriptyline 75 mg PO BEDTIME amlodipine 5 mg PO DAILY aripiprazole 30 mg PO BEDTIME atorvastatin 40 mg PO BEDTIME blood sugar diagnostic (FreeStyle Lite Strips) As directed bupropion HCl SR 100 mg PO QAM buspirone 30 mg PO cholecalciferol (vitamin D3) 50 mcg PO QAM folic acid 1 mg PO DAILY furosemide 20 mg PO QAM gabapentin 300 mg PO hydrochlorothiazide 12.5 mg PO DAILY hydrocortisone 2.5% (Proctosol HC) 1 appl [place] BID-QID PRN ibuprofen 400 mg PO TID PRN lancets (TRUEplus Lancets) As directed lidocaine 5% 1 patch topical DAILY losartan 100 mg PO QAM metformin 500 mg PO DAILY metoprolol tartrate 50 mg PO BID risperidone 1 mg PO BEDTIME ropinirole 1 mg (2 x 0.5 mg) PO BID sennosides (Natural Senna Laxative) 8.6 mg PO BEDTIME tizanidine 6 mg PO TID PRN tramadol 100 mg PO Q12H PRN venlafaxine ER 150 mg PO DAILY venlafaxine ER 75 mg PO DAILY venlafaxine ER 37.5 mg PO DAILY zolpidem 5 mg PO BEDTIME HPI Comments Details: Patient presents for evaluation of an anterior right chest wall soft tissue mass. He has had this several years time. His increasing in size, become more symptomatic. Like to have removed. He has no such lesions elsewhere. Chart was reviewed and patient evaluated [facility] Medical History Internal hemorrhoid Tubular adenoma Cardiomyopathy Elevated cholesterol Sleep apnea Diabetes HTN (hypertension) Radiculopathy, lumbar region Disc degeneration, lumbar Spondylosis of lumbar spine Spondylosis of cervical spine Surgical History History of hernia repair Hx of cardiac catheterization H/O colonoscopy Hx of knee surgery Hernia Family History Father HTN (hypertension) Diabetes Mother Diabetes HTN (hypertension) Heart disease Social History Household Members: Family Alcohol intake: former Patient Tobacco Use Status: Former Tobacco user Tobacco use type: Cigarette 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 Risks, benefits, alternatives of the lipoma excision were reviewed with the patient and included but not limited to bleeding, infection, recurrence, numbness, pain, scarring the patient was to proceed. All questions answered. Consent signed. Office Procedures Excision Details: After appropriate positioning, patient underwent % lidocaine and Betadine prep and a transverse incision over the right mid chest wall mass consistent with lipoma. Uneventfully enucleation of approximately 3 x 2 cm lipoma was performed. Specimen sent to pathology. Wound Wound was irrigated, secured hemostasis, and closed using running subcuticular 3-0 Vicryl suture followed by Steri-Strips and sterile dressings. Patient tolerated procedure well. [id number]/arms/legs 2.1-3cm Procedure code (CPT) selection complete Office Meds lidocaine 1 %-epinephrine 1:100,000 injection solution Performing Provider: Prince Tafoya MD Performing Location: [facility] [place] [facility] Administered by: Prince Tafoya MD on 02/05/24 14:12 Dose Route Admin Location Dispensed Lot Number Expiration Date [facility] [place] Certified Legal Secretary Specialist 10 mL Infiltration 10 mL Assessment & Plan Assessment & Plan (1) Lipoma of anterior chest wall: Code(s): D17.1 - Benign lipomatous neoplasm of skin and subcutaneous tissue of trunk Category: Surgical Plan: Patient has been given local instructions including avoiding strenuous activities for next few days time, shower in 2 days, remove on the outside dressing leaving Steri-Strips intact, Motrin and Tylenol p.r.n. pain, ice periodically, and patient will see me as directed or p.r.n.. All questions answered Orders: Orders AMB Excision Today D17.1 - Benign lipomatous neoplasm of skin and subcutaneous tissue of trunk Medications: New lidocaine-epinephrine 1 %-1:100,000 10 mL Infiltration ONCE 30 mL 0RF D17.1 - Benign lipomatous neoplasm of skin and subcutaneous tissue of trunk Coding Level of Care Code New Pt Level 5 (82851) Diagnoses Lipoma of anterior chest wall D17.1 CPT Codes Trunk/Arms/Legs - CPT: 03156-ldpww/arms/legs 2.1-3cm ([id number])
[2024-02-05 13:59] VITALS: BP 156/93; PULSE 77; BMI 33.7
== END 2024-02-05 14:11 | disposition home or self-care (01) ==
PROVIDERS: PCP Nurse Practitioner; Referring Provider Internal Medicine Geriatric Medicine; Visit Provider Surgery
DX: D17.1 Benign lipomatous neoplasm of skin and subcutaneous tissue of trunk (principal)
CPT/HCPCS: 11403; 99204

== ENCOUNTER 2024-02-05 13:50 | Outpatient (REF) | payer MEDICAID, SELFPAY | END 2024-02-05 13:51 | disposition home or self-care (01) | LOC: HO.LNP 13:50 | PROVIDERS: PCP Nurse Practitioner; Referring Provider Internal Medicine Geriatric Medicine; Visit Provider Surgery | DX: D17.1 Benign lipomatous neoplasm of skin and subcutaneous tissue of trunk (principal) | CPT/HCPCS: 11403; 88304; 88305; 99202 ==

== ENCOUNTER 2024-02-13 09:15 | Outpatient (AMB) | payer MEDICAID, SELFPAY ==
[2024-02-13 09:21] VITALS: BP 134/86; PULSE 77
--- NOTE | 2024-02-13 09:21 | MHC.OFFVIS ---
Vital Signs 02/13/24 09:21 Weight 209 lb BP 134/86 Blood Pressure Location Rt brachial Position Sitting Pulse 77 Intake Visit Reasons: s/p excision skin cyst right chest Intake Note: Patient here s/p exc on above rt areola. Reports incision healing well. Patient c/o: bruising. Feels smaller lump under nipple area. 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 No wound issues or complaints. Pathology is benign. [facility] Medical History Internal hemorrhoid Tubular adenoma Cardiomyopathy Elevated cholesterol Sleep apnea Diabetes HTN (hypertension) Radiculopathy, lumbar region Disc degeneration, lumbar Spondylosis of lumbar spine Spondylosis of cervical spine Surgical History History of hernia repair Hx of cardiac catheterization H/O colonoscopy Hx of knee surgery Hernia Family History Father HTN (hypertension) Diabetes Mother Diabetes HTN (hypertension) Heart disease Social History Household Members: Family Alcohol intake: former Patient Tobacco Use Status: Former Tobacco user Tobacco use type: Cigarette 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 Some resolving ecchymosis Assessment & Plan Assessment & Plan (1) Postop check: Code(s): Z09 - Encounter for follow-up examination after completed treatment for conditions other than malignant neoplasm Category: Surgical Plan Patient has been given local instructions including avoiding strenuous activities for next few weeks time and will otherwise follow-up p.r.n.. All questions answered Coding Level of Care Code Global (06459) Diagnoses Postop check Z09
== END 2024-02-13 09:24 | disposition home or self-care (01) ==
PROVIDERS: PCP Nurse Practitioner; Visit Provider Surgery
DX: Z09 Encounter for follow-up examination after completed treatment for conditions other than malignant neoplasm (principal)
CPT/HCPCS: 99024

== ENCOUNTER → 2024-02-13 09:15 | Outpatient (BNVA) | payer MEDICAID, SELFPAY | PROVIDERS: PCP Nurse Practitioner; Visit Provider Surgery | DX: Z09 Encounter for follow-up examination after completed treatment for conditions other than malignant neoplasm (principal) | CPT/HCPCS: 99212 ==

== ENCOUNTER → 2024-03-05 12:37 | Outpatient (BNVA) | payer MEDICAID, SELFPAY | PROVIDERS: PCP Registered Nurse; Visit Provider Internal Medicine Cardiovascular Disease ==

== ENCOUNTER 2024-03-28 08:32 | Outpatient (REF) | payer MEDICAID, SELFPAY ==
--- NOTE | ~2024-03-28 | XR_ITS ---
EXAMINATION: XR SHOULDER, LEFT CLINICAL INFORMATION: Pain. COMPARISON: Left shoulder radiographs dated 04/25/2023 and 05/17/2018. TECHNIQUE: AP neutral, scapular Y, and axillary views of the left shoulder. FINDINGS: Bony mineralization is normal. The glenohumeral joint is intact. The acromioclavicular and coracoclavicular intervals are normal. There is a stable lytic, expansile lesion within the proximal left humeral shaft, unchanged from 05/17/2018. There is stable irregularity of the cortical surface. No acute fracture ofpathologic bone is seen. Their is no periosteal thickening. There is no dislocation. No focal soft tissue swelling, gas or foreign body seen. XR/XR shoulder LT min 2V IMPRESSION: There is a stable lytic lesion of the proximal left humeral shaft. No acute fracture of pathologic bone is seen. Please see differential considerations of prior reports. Again if clinically warranted (i.e., pain referable to this finding or concerning palpable mass), this can be further evaluated with MRI. Electronically signed by: Luis Enrique Rodrigez MD 04/22/2024 12:48 PM EDT
== END 2024-03-28 08:33 | disposition home or self-care (01) ==
LOC: HO.HOSX 08:32
PROVIDERS: Visit Provider Physician Assistant
DX: M25.512 Pain in left shoulder (principal); M25.312 Other instability, left shoulder; S46.002A Unspecified injury of muscle(s) and tendon(s) of the rotator cuff of left shoulder, initial encounter
CPT/HCPCS: 73030; 99212

== ENCOUNTER 2024-03-28 09:30 | Outpatient (AMB) | payer MEDICAID, SELFPAY ==
--- NOTE | 2024-03-28 09:47 | A.OFFVIS_ITS ---
Vital Signs 03/28/24 09:53 Height 5 ft 6 in Weight 209 lb BMI 33.7 Intake Visit Reasons: ov- LT shoulder pain Intake Note: Davidson a 58 year old male who presents today for a follow up of left shoulder pain. MRI done at [facility]. Patient reports he continues to have ongoing pain as well as no strength in his arm. Limited ROM. 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 Services: 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 Present 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 Name: ERIC Cool/GARRY Information Interpreted: clinical only Allergies No Known Allergies [No Known Allergies*] Allergy (Verified 03/28/24 09:53) Medication List - Last Reconciled 03/28/24 by Zak Scott PA-C amitriptyline 75 mg PO BEDTIME amlodipine 5 mg PO DAILY aripiprazole 30 mg PO BEDTIME atorvastatin 40 mg PO BEDTIME blood sugar diagnostic (FreeStyle Lite Strips) As directed bupropion HCl SR 100 mg PO QAM buspirone 30 mg PO cholecalciferol (vitamin D3) 50 mcg PO QAM folic acid 1 mg PO DAILY furosemide 20 mg PO QAM gabapentin 300 mg PO hydrochlorothiazide 12.5 mg PO DAILY hydrocortisone 2.5% (Proctosol HC) 1 appl [place] BID-QID PRN ibuprofen 400 mg PO TID PRN lancets (TRUEplus Lancets) As directed lidocaine 5% 1 patch topical DAILY losartan 100 mg PO QAM metformin 500 mg PO DAILY metoprolol tartrate 50 mg PO BID risperidone 1 mg PO BEDTIME ropinirole 1 mg (2 x 0.5 mg) PO BID sennosides (Natural Senna Laxative) 8.6 mg PO BEDTIME tizanidine 6 mg PO TID PRN tramadol 100 mg PO Q12H PRN venlafaxine ER 150 mg PO DAILY venlafaxine ER 75 mg PO DAILY venlafaxine ER 37.5 mg PO DAILY zolpidem 5 mg PO BEDTIME HPI HPI ov- LT shoulder pain: Details: Pa is a 58-year-old male who returns to the office today f/u right shoulder, accompanied by an manager rfid, for a follow-up of right shoulder pain. He had an MRI of his right done at [facility] in Apr 2023 He states that he still feels discomfort in his arm and feels no strength in his arm. He has limited ROM. He claims to be experiencing shoulder pain after falling around a year ago. He finds it difficult to raise his arm and to lift anything. He had an MRI performed when he was last seen here in April 2023, but he did not follow up for the same. [facility] Medical History Internal hemorrhoid Tubular adenoma Cardiomyopathy Elevated cholesterol Sleep apnea Diabetes HTN (hypertension) Radiculopathy, lumbar region Disc degeneration, lumbar Spondylosis of lumbar spine Spondylosis of cervical spine Surgical History History of hernia repair Hx of cardiac catheterization H/O colonoscopy Hx of knee surgery Hernia Family History Father HTN (hypertension) Diabetes Mother Diabetes HTN (hypertension) Heart disease Social History Household Members: Family Alcohol intake: former Patient Tobacco Use Status: Former Tobacco user Tobacco use type: Cigarette 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 Review of Systems Const All systems reviewed & are unremarkable except as noted in HPI and below Physical Exam Vital Signs: BMI result Body Mass Index 33.7 Const General: cooperative, healthy appearing, comfortable and no acute distress Orientation/consciousness: patient oriented x3 Neck Neck: Yes normal visual inspection and Yes no JVD Chest Chest palpation & inspection: normal inspection of the chest Resp Effort & Inspection: normal respiratory effort Auscultation: clear to auscultation bilaterally, crackles (no), rales (no), rhonchi (no) and wheezes (no) Cardio Jugular venous distension: no JVD Rate: regular rate Rhythm: regular rhythm Heart sounds: S1 normal heart sound present, S2 normal heart sound present, Murmur heart sound present (no) and Rub heart sound present (no) Neuro General: patient oriented x3 Extrem Other: Left shoulder normal to inspection. Tenderness over the bicipital groove and along the deltoid region of the shoulder. Forward flexion to 30 degrees, external rotation against resistance, internal rotation to S1. He has significant weakness with empty can testing. Negative Rios and cross body abduction. NVI. General: Yes normal to inspection, Yes no pedal edema and Yes no calf tenderness Psych Appearance: grossly normal Mental Status: mental status grossly normal Speech and movement: Normal speech and movement present Assessment & Plan Assessment & Plan (1) Injury of left rotator cuff: Code(s): S46.002A - Unspecified injury of muscle(s) and tendon(s) of the rotator cuff of left shoulder, initial encounter Category: Medical Qualifiers: Encounter type: initial encounter Qualified Code(s): S46.002A - Unspecified injury of muscle(s) and tendon(s) of the rotator cuff of left shoulder, initial encounter Plan Dr. Salazar was available to meet the patient with me today. We discussed at length the extent of his injury along with the MRI findings. He does have a large rotator cuff tear which we recommended repairing with surgery. The plan is to obtain an MRI arthrogram of the left shoulder to further assess the extent of the rotator cuff given his previous MRI was of the humerus. We will also book him for an arthroscopic rotator cuff repair of the left shoulder with Dr. Salazar. I explained the procedure in detail along with the length of recovery and rehab course. I explained the risk, benefits and alternatives. Risk including, but not limited to infection, blood clots, bleeding, ongoing pain and stiffness. I explained the use of the sling post op ie: 6 weeks. Discussed the importance of PT post op and performing pendulum exercises immediately after surgery. I answered all their questions and with their understanding they have consented to move forward with Rotator cuff repair right shoulder with Dr Salazar. Orders: Orders MR shoulder LT w con 03/28/24 M25.312 - Other instability, left shoulder Patient Instructions: Scribed for Zak Scott PA-C, by Maylin Kate site medical director, on 03/28/2024 at 9:30 AM LAXMI. Zak Biswas PA-C, have personally reviewed and agree with the information entered by the scribe. Coding Level of Care Code Est Pt Level 3 (44664) Diagnoses Injury of left rotator cuff, initial encounter S46.002A Encounter type: initial encounter
[2024-03-28 09:53] VITALS: BMI 33.7
== END 2024-03-28 10:36 | disposition home or self-care (01) ==
PROVIDERS: PCP Nurse Practitioner; Visit Provider Physician Assistant
DX: S46.002A Unspecified injury of muscle(s) and tendon(s) of the rotator cuff of left shoulder, initial encounter (principal)
CPT/HCPCS: 99213

== ENCOUNTER 2024-04-26 11:38 | Outpatient (AMB) | payer MEDICAID, SELFPAY ==
[2024-04-26 11:41] VITALS: BMI 33.7
--- NOTE | 2024-04-26 11:41 | A.OFFVIS_ITS ---
Vital Signs 04/26/24 11:41 Height 5 ft 6 in Weight 209 lb BMI 33.7 Intake Visit Reasons: OV - LT shoulder MRI review Intake Note: Davidson is a 58 year old male who presents today for a follow up of his right shoulder to discuss possible surgical intervention. MRI done at 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 Full-thickness tear of the supraspinous tendon from its normal attachment, with additional rotator cuff pathology in the subscapularis and infraspinatus tendons as described. Rotator cuff arthropathy. Allergies No Known Allergies [No Known Allergies*] Allergy (Verified 03/28/24 09:53) HPI HPI OV - LT shoulder MRI review: Details: This is a 58-year-old gentleman who presents today for a WC evaluation of left shoulder s/p fall, DOI 04/25/23. He had an MRI and is here today for review. He continues to describe difficulty with lifting. 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 He is right-hand dominant. He has tried injections and physical therapy but has not improved. His shoulder is most painful with overhead lifting. It is tolerable at rest. He is diabetic [facility] Medical History Internal hemorrhoid Tubular adenoma Cardiomyopathy Elevated cholesterol Sleep apnea Diabetes HTN (hypertension) Radiculopathy, lumbar region Disc degeneration, lumbar Spondylosis of lumbar spine Spondylosis of cervical spine Surgical History History of hernia repair Hx of cardiac catheterization H/O colonoscopy Hx of knee surgery Hernia Family History Father HTN (hypertension) Diabetes Mother Diabetes HTN (hypertension) Heart disease Social History Household Members: Family Alcohol intake: former Patient Tobacco Use Status: Former Tobacco user Tobacco use type: Cigarette 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 There is also an intraosseous lipoma Assessment & Plan Assessment & Plan (1) Injury of left rotator cuff: Code(s): S46.002A - Unspecified injury of muscle(s) and tendon(s) of the rotator cuff of left shoulder, initial encounter Category: Medical Qualifiers: Encounter type: initial encounter Qualified Code(s): S46.002A - Unspecified injury of muscle(s) and tendon(s) of the rotator cuff of left shoulder, initial encounter Plan: This is a 58-year-old right-hand dominant gentleman with a full-thickness tear of the supraspinatus and infraspinatus in the partial-thickness tear of the subscapularis. He is weak in abduction and has infraspinatus atrophy only. This is a work-related injury. I reviewed the MRI with him and discussed treatment options. Given that he was functional before his injury I recommend rotator cuff repair. I did warn him that it may not be repairable given that there already is some atrophy but I think it is worth an attempt. I also discussed the presence of the intraosseous lipoma. I do not think that will affect the repair. I am I discussed the risks, benefits and alternatives as well as the expected duration of time off work. He will consider his options and get back to me. In the meantime I recommend no overhead lifting. (2) Bone cyst of left humerus: Code(s): M85.622 - Other cyst of bone, left upper arm Category: Medical Plan: Coding Level of Care Code Est Pt Level 4 (37886) Diagnoses Injury of left rotator cuff, initial encounter S46.002A Encounter type: initial encounter Bone cyst of left humerus M85.622
== END 2024-04-26 12:23 | disposition home or self-care (01) ==
PROVIDERS: PCP Registered Nurse; Referring Provider Registered Nurse; Visit Provider Orthopaedic Surgery
DX: S46.002A Unspecified injury of muscle(s) and tendon(s) of the rotator cuff of left shoulder, initial encounter (principal); M85.622 Other cyst of bone, left upper arm
CPT/HCPCS: 99213

== ENCOUNTER → 2024-04-26 11:38 | Outpatient (BNVA) | payer MEDICAID, SELFPAY | PROVIDERS: PCP Registered Nurse; Visit Provider Orthopaedic Surgery | DX: S46.002A Unspecified injury of muscle(s) and tendon(s) of the rotator cuff of left shoulder, initial encounter (principal); M85.622 Other cyst of bone, left upper arm; W19.XXXA Unspecified fall, initial encounter; Y93.9 Activity, unspecified; Y92.9 Unspecified place or not applicable; Y99.9 Unspecified external cause status | CPT/HCPCS: 99212 ==

== ENCOUNTER 2024-09-05 08:32 | Outpatient (REF) | payer MEDICAID, SELFPAY ==
[2024-09-05 11:55] LABS: Anion Gap 13 (12-20); Blood Urea Nitrogen 35 mg/dL (9-16); Calcium 9.3 mg/dL (8.4-10.2); Carbon Dioxide 27 mmol/L (22-29); Chloride 105 mmol/L (96-108); Cholesterol 183 mg/dL (<200); Estimated Glomerular Filt Rate > 60; Glucose Random 140 mg/dL (60-115); HDL Cholesterol 33 mg/dL (>40); LDL Cholesterol Calculated 82 mg/dL (<100); Potassium 4.3 mmol/L (3.3-5.1); Sodium 141 mmol/L (135-145); Triglycerides 344 mg/dL (<150)
[2024-09-05 12:16] LABS: Creatinine Urine 117.04 mg/dL; Microalbum/Creatinine Ratio Ur 6.8 ug/mg cr (<30)
== END 2024-09-05 08:33 | disposition home or self-care (01) ==
LOC: HO.HHCL 08:32
PROVIDERS: Visit Provider Nurse Practitioner
DX: E11.9 Type 2 diabetes mellitus without complications (principal)
CPT/HCPCS: 36415; 80048; 80061; 82043; 82570

== ENCOUNTER 2024-11-15 12:49 | Outpatient (AMB) | payer MEDICAID, SELFPAY ==
--- NOTE | 2024-11-15 12:51 | MHC.OFFVIS ---
Vital Signs 11/15/24 12:53 Height 5 ft 6 in Weight 208 lb BMI 33.6 BP 120/82 Blood Pressure Location Lt brachial Position Sitting Pulse 74 Pulse Source Pulse Oximeter Pulse Oximetry (%) 98 Oxygen Delivery Method Room Air Intake Visit Reasons: Follow up Intake Note: Patient presents follow up FRANCESCO Applied Research Director Required: No Applied Research Director Name: Patient presents follow up FRANCESCO Accompanied by: Self / Same As Patient Allergies No Known Allergies [No Known Allergies*] Allergy (Verified 11/15/24 13:01) Medication List - Last Reconciled 11/15/24 by ARASH Christien amitriptyline 75 mg PO BEDTIME amlodipine 5 mg PO DAILY aripiprazole 30 mg PO BEDTIME atorvastatin 40 mg PO BEDTIME blood sugar diagnostic (FreeStyle Lite Strips) As directed bupropion HCl SR 100 mg PO QAM buspirone 30 mg PO cholecalciferol (vitamin D3) 50 mcg PO QAM folic acid 1 mg PO DAILY furosemide 20 mg PO QAM gabapentin 300 mg PO hydrochlorothiazide 12.5 mg PO DAILY hydrocortisone 2.5% (Proctosol HC) 1 appl [place] BID-QID PRN ibuprofen 400 mg PO TID PRN lancets (TRUEplus Lancets) As directed lidocaine 5% 1 patch topical DAILY losartan 100 mg PO QAM metformin 500 mg PO DAILY metoprolol tartrate 50 mg PO BID risperidone 1 mg PO BEDTIME ropinirole 1 mg (2 x 0.5 mg) PO BID sennosides (Natural Senna Laxative) 8.6 mg PO BEDTIME tizanidine 6 mg PO TID PRN tramadol 100 mg PO Q12H PRN venlafaxine ER 150 mg PO DAILY venlafaxine ER 75 mg PO DAILY venlafaxine ER 37.5 mg PO DAILY zolpidem 5 mg PO BEDTIME HPI Comments Details: The patient is a 59-year-old male presenting with obstructive sleep apnea. The patient reports poor sleep maintenance, typically awakening after 2-3 hours. He uses a Vidya CPAP machine since 2019, and complains about its recalled status. Symptoms of Restless Legs Syndrome noted, experienced mostly while sitting, Such as restlessness, urge to move, creepy crawly sensation, which can be exacerbated by his low back pain. Patient reports his BP is usually well controlled on his current BP regimen, states he is prediabetic, and notes recently his cholesterol levels were more elevated despite being compliant with his statin. He has previous low vitamin B12 level. Recent blood tests indicate elevated BUN at 35 mg/dL. Patient does not recall being ill or anything specifically that may have triggered the increased BUN in August. PCP had enter follow-up BMP orders, however patient has no done these yet. Sleep - Bedtime: Around 11:00 PM - Arousal: 2:30-3:00 AM - Total Sleep: 2-3.5 hours - Uses Vidya CPAP machine - Reports inability to return to sleep after initial awakening - often has to get out of bed, to walk - Daytime tiredness noted but unable to nap [facility] Medical History (Updated 11/15/24 @ 13:47 by ARASH Christine) Low vitamin B12 level Internal hemorrhoid Tubular adenoma Cardiomyopathy Elevated cholesterol Sleep apnea Diabetes HTN (hypertension) Radiculopathy, lumbar region Disc degeneration, lumbar Spondylosis of lumbar spine Spondylosis of cervical spine Surgical History History of hernia repair Hx of cardiac catheterization H/O colonoscopy Hx of knee surgery Hernia Family History Father HTN (hypertension) Diabetes Mother Diabetes HTN (hypertension) Heart disease Social History Household Members: Family Alcohol intake: former Patient Tobacco Use Status: Former Tobacco user Tobacco use type: Cigarette 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 Physical Exam Vital Signs: Last Vital Signs Pulse 74 11/15/24 12:53 BP 120/82 11/15/24 12:53 Pulse Ox 98 11/15/24 12:53 Oxygen Delivery Method Room Air 11/15/24 12:53 BMI result Body Mass Index 33.6 Const General: cooperative and no acute distress Orientation/consciousness: patient oriented x3 Resp Effort & Inspection: normal respiratory effort and able to speak in complete sentences Neuro Other: Slow to stand, antalgic gait General: patient oriented x3 Cranial nerves: Yes CN's II-XII intact bilaterally Cognition (Neuro): normal cognition Psych Appearance: grossly normal Mental Status: mental status grossly normal Speech and movement: Normal speech and movement present Affect: normal affect Attitude: cooperative Assessment & Plan Assessment & Plan (1) Elevated BUN: Code(s): R79.9 - Abnormal finding of blood chemistry, unspecified Category: Medical (2) Restless legs syndrome: Code(s): G25.81 - Restless legs syndrome Category: Medical (3) Periodic limb movements of sleep: Code(s): G47.61 - Periodic limb movement disorder Category: Medical (4) Obstructive sleep apnea: Code(s): G47.33 - Obstructive sleep apnea (adult) (pediatric) Category: Medical Plan Discussion Notes During today's discussion, we reviewed the patient's concerns with ongoing management of obstructive sleep apnea, including the efficiency and recall status of the CPAP machine. I emphasized the requirement of a new machine due to recent developments with Vidya mechanical devices. For Restless Legs Syndrome and coexisting conditions such as prediabetes and recent elevated BUN, patient is advised to undergo lab workup to evaluate for underlying etiologies. Upon review, we will consider treatments to optimize restless leg symptom control. Plan - Check labs for common etiologies restless leg symptoms in setting of recent elevated BUN- patient will do these fasting next week at [facility] [place]. - upon review of above, we will consider optimizing treatment of your restless leg symptoms. - Continue to use APAP 5-20 cm H2O nightly with a goal of greater than 4 hours nightly, as patient is experiencing good clinical effect from use. - We will request a new PAP machine with remote compliance capabilities, as patient's machine is a Irwin PAP machine which is over 6 years old and does not have remote compliance capabilities. - Clean and change PAP supplies routinely, including filters, masks, tubing, and water reservoir. - Use distilled water in PAP water resorvoir. - We will follow-up upon review of above and plan for you to follow-up in clinic in 6 months or sooner as needed. Patient was informed and verbally consented to the use of an ambient scribe for clinic note documentation during this visit. Orders: Orders Vitamin B12 and Folate Today E11.9 - Type 2 diabetes mellitus without complications, E83.19 - Other disorders of iron metabolism, G25.81 - Restless legs syndrome, R79.89 - Other specified abnormal findings of blood chemistry, R79.9 - Abnormal finding of blood chemistry, unspecified Vitamin B6 Today E11.9 - Type 2 diabetes mellitus without complications, E83.19 - Other disorders of iron metabolism, G25.81 - Restless legs syndrome, R79.89 - Other specified abnormal findings of blood chemistry, R79.9 - Abnormal finding of blood chemistry, unspecified Vitamin D 25-OH (D2 and D3) Today E11.9 - Type 2 diabetes mellitus without complications, E83.19 - Other disorders of iron metabolism, G25.81 - Restless legs syndrome, R79.89 - Other specified abnormal findings of blood chemistry, R79.9 - Abnormal finding of blood chemistry, unspecified Homocysteine Today E11.9 - Type 2 diabetes mellitus without complications, E83.19 - Other disorders of iron metabolism, G25.81 - Restless legs syndrome, R79.89 - Other specified abnormal findings of blood chemistry, R79.9 - Abnormal finding of blood chemistry, unspecified Methylmalonic Acid Today E11.9 - Type 2 diabetes mellitus without complications, E83.19 - Other disorders of iron metabolism, G25.81 - Restless legs syndrome, R79.89 - Other specified abnormal findings of blood chemistry, R79.9 - Abnormal finding of blood chemistry, unspecified Complete Blood Count Auto Diff Today E11.9 - Type 2 diabetes mellitus without complications, E83.19 - Other disorders of iron metabolism, G25.81 - Restless legs syndrome, R79.89 - Other specified abnormal findings of blood chemistry, R79.9 - Abnormal finding of blood chemistry, unspecified CRP High Sensitivity Today E11.9 - Type 2 diabetes mellitus without complications, E83.19 - Other disorders of iron metabolism, G25.81 - Restless legs syndrome, R79.89 - Other specified abnormal findings of blood chemistry, R79.9 - Abnormal finding of blood chemistry, unspecified TSH reflex Free T4 Today E11.9 - Type 2 diabetes mellitus without complications, E83.19 - Other disorders of iron metabolism, G25.81 - Restless legs syndrome, R79.89 - Other specified abnormal findings of blood chemistry, R79.9 - Abnormal finding of blood chemistry, unspecified IRON PROFILE Today E11.9 - Type 2 diabetes mellitus without complications, E83.19 - Other disorders of iron metabolism, G25.81 - Restless legs syndrome, R79.89 - Other specified abnormal findings of blood chemistry, R79.9 - Abnormal finding of blood chemistry, unspecified Ferritin Today E11.9 - Type 2 diabetes mellitus without complications, E83.19 - Other disorders of iron metabolism, G25.81 - Restless legs syndrome, R79.89 - Other specified abnormal findings of blood chemistry, R79.9 - Abnormal finding of blood chemistry, unspecified Hemoglobin A1c Today E11.9 - Type 2 diabetes mellitus without complications, E83.19 - Other disorders of iron metabolism, G25.81 - Restless legs syndrome, R79.89 - Other specified abnormal findings of blood chemistry, R79.9 - Abnormal finding of blood chemistry, unspecified Comprehensive Met. Panel Today E11.9 - Type 2 diabetes mellitus without complications, E83.19 - Other disorders of iron metabolism, G25.81 - Restless legs syndrome, R79.89 - Other specified abnormal findings of blood chemistry, R79.9 - Abnormal finding of blood chemistry, unspecified Erythrocyte Sedimentation Rate Today E11.9 - Type 2 diabetes mellitus without complications, E83.19 - Other disorders of iron metabolism, G25.81 - Restless legs syndrome, R79.89 - Other specified abnormal findings of blood chemistry, R79.9 - Abnormal finding of blood chemistry, unspecified Coding Level of Care Code Est Pt Level 4 (96418) Diagnoses Elevated BUN R79.9 Restless legs syndrome G25.81 Periodic limb movements of sleep G47.61 Obstructive sleep apnea G47.33
[2024-11-15 12:53] VITALS: BP 120/82; PULSE 74; O2SAT 98; BMI 33.6
--- OUTSIDE RECORDS SUMMARY | 2024-11-15 15:11 | XMS_ITS | Encounter Summary ---
Author Organization [employer] Address [address] [place] [address] 7 [place] [address] Care Team Providers Care Extrusion Die Repairer Name Role Phone Shanda Rg NP Primary Care Provider [phone] Jas Cordero Unavailable Unavailable Reason for Visit * Reason Onset Date Comments Appointment Request 09/25/2023 Encounter Details Date Type Department Care Team ([facility] st Contact Info) Description 09/25/2023 Telephone [facility] [address] [place] [address] Shanda Rg NP [address] [place], [place] [id number] Appointment Request Social History Tobacco Use Types Packs/Day Years Used Date Smoking Tobacco: Former Cigarettes Q uit: 10/02/2002 Passive Smoke Exposure: Past Smokeless Tobacco: Never Alcohol Use Standard Drinks/Week Comments Not Currently 0 (1 standard drink = 0.6 oz pur e alcohol) Depression Answer Date Recorded Patient Health Questionnaire-9 Score 4 08/01/2023 Patient Health Questionnaire-9 Score 4 08/01/2023 Last PHQ-9: Questionnaire Data Not on file 1 10/02/2022 Housing Stability Answer Date Recorded What is your housing situation today? I have conrado osborn 06/16/[address] you li ve. Do you have problems with any of the following? None of the above 06/16/2023 Food Insecurity Answer Date Recorded Within the past 12 months, y ou worried that your food would run out before you got money to buy more: Never True 06/16/2023 Within the past 12 months,th e food you bought just didn't last and you didn't have enough money to get more: Never True Transportation Answer Date Recorded In the past 12 months, has l ack of transportation kept you from medical appts, meetings, work or from getting things needed for daily living? No 06/16/2023 Utilities Answer Date Recorded In the past 12 months, has t he electric, gas, oil or water company threatened to shut off services in your home? No 06/16/2023 Depression Answer Date Recorded Patient Health Questionnaire-2 Score 2 08/01/2023 Sex and Gender Information Value Date Recorded Sex Assigned at Male 06/27/2022 10:29 AM EDT Legal Sex Male 10:29 AM EDT Gender Identity Male 06/27/2022 10:29 AM EDT Sexual Orientation Straight 06/27/2022 10 :29 AM EDT documented as of this encounter Miscellaneous Notes * Telephone Encounter - Jean Rosario - 09/25/2023 11:53 AM EST Tc from pt requesting TP, pt is on a recall 10/27/23. Pt denied any immediate concerns just wants to follow up regarding existing conditions. Please contact pt at [phone]. Yemeni speaking documented in this encounter Plan of Treatment Upcoming Encounters Date Type Department Care Team ([facility] st Contact Info) Description 01/01/2025 9:30 AM EDT Office Visit [facility] [address] [place] [phone] Shanda Rg NP [address] [place] [address] 01/30/2025 1:00 PM EDT Clinical Support [facility] [address] [place] [address] Cait Velazquez RN documented as of this encounter Visit Diagnoses Not on filedocumented in this encounter Additional Health Concerns Assessment Noted Time PHQ-9 Depression Total Score: 4 08/01/20 23 11:20 AM EST documented as of this encounter Care Teams Extrusion Die Repairer Relationship Specialty Start Date End Date Shanda Rg NP [address] [place] [address] PCP - General Family Medicine 06/06/23 Jas Cordero FNP [address] [place] [address] Nurse Practitioner Family Medicine 07/24/23 Aixa Ng Pass WorkerFederal Agent 09/11/23 documented as of this encounter
--- OUTSIDE RECORDS SUMMARY | 2024-11-15 15:11 | XMS_ITS | Encounter Summary ---
Author Organization [employer] Address [address] [place] [address] 7 [place] [address] Care Team Providers Care Restorative Aide Name Role Phone Shanda Rg NP Primary Care Provider [phone] Jas Cordero Unavailable Unavailable Reason for Visit * Reason Comments Med Refill Encounter Details Date Type Department Care Team (Late st Contact Info) Description 09/22/2023 Refill [facility] [address] [place] [address] Carrie Shrestha MD [address] [place] [address] Seasonal allergic rhinitis, unspecified trigger Social History Tobacco Use Types Packs/Day Years [...] encounter Miscellaneous Notes * Telephone Encounter - Shanda Rg NP - 09/22/2023 5:03 PM EST Approving, but needs appt for additional refills. documented in this encounter Plan of Treatment Upcoming Encounters Date Type Department Care Team (Late st Contact Info) Description 01/01/2025 9:30 AM EDT Office Visit [facility] [address] [place] [phone] Shanda Rg NP [address] [place] [phone] 01/30/2025 1:00 PM EDT Clinical Support [facility] [address] [place] [address] Cait Velazquez RN documented as of this encounter Visit Diagnoses Diagnosis Seasonal allergic rhinitis, unspecified trigger documented in this encounter Additional Health Concerns Assessment Noted Time PHQ-9 Depression Total Score: 4 08/01/20 23 11:20 AM EST documented as of this encounter Care Teams Restorative Aide Relationship Specialty Start Date End Date Shanda Rg NP [address] [place] [id number] PCP - General Family Medicine 06/06/23 Jas Cordero FNP [address] [place] [address] Nurse Practitioner Family Medicine 07/24/23 Aixa Ng Jigger OperatorCommercial Loan Assistant 09/11/23 documented as of this encounter
--- OUTSIDE RECORDS SUMMARY | 2024-11-15 15:11 | XMS_ITS | Encounter Summary ---
Author Organization [employer] Address [address] [place] [address] [address] [place] [address] Care Team Providers Care Senior Procurement Manager Name Role Phone Shanda Rg NP Primary Care Provider [phone] Jas Cordero Unavailable Unavailable Reason for Visit * Reason Comments Med Refill Encounter Details Date Type Department Care Team (Late st Contact Info) Description 08/01/[address] [facility] [address] [place] [address] Lianet Mae FNP [address] [place] [address] Pain; Cervical radiculopathy; Lumbar radiculopathy Social History Tobacco Use Types Packs/Day Years [...] Telephone Encounter - Shanda Rg NP - 08/04/2023 10:41 AM EST Approving, but needs appt for additional refills. documented in this encounter Plan of Treatment Upcoming Encounters Date Type Department Care Team (Late st Contact Info) Description 01/01/2025 9:30 AM EDT Office Visit [facility] [address] [place] [address] Shanda Rg NP [address] [place] [address] 01/30/2025 1:00 PM EDT Clinical Support [facility] [address] [place] [address] Cait Velazquez RN documented as of this encounter Visit Diagnoses Diagnosis Pain Generalized pain Cervical radiculopathy Brachial neuritis or radiculitis nos Lumbar radiculopathy Thoracic or lumbosacral neuritis or radiculitis, unspecified documented in this encounter Additional Health Concerns Assessment Noted Time PHQ-9 Depression Total Score: 4 08/01/20 23 11:20 AM EST documented as of this encounter Care Teams Senior Procurement Manager Relationship Specialty Start Date End Date Shanda Rg NP [address] [place] [address] PCP - General Family Medicine 06/06/23 Jas Cordero FNP [address] [place] [address] Nurse Practitioner Family Medicine 07/24/23 Aixa Ng Circular KnitterFrickertron Checker 09/11/23 documented as of this encounter
--- OUTSIDE RECORDS SUMMARY | 2024-11-15 15:12 | XMS_ITS | Encounter Summary ---
Author Organization [employer] [facility] Address [address] [place] [address] [address] [place] [address] Care Team Providers Care Customer Relations Advisor Name Role Phone Carmen Faust MD Primary Care Provider Cali Lundberg CAMPAIGN ASSISTANT Primary Care Provider Jada Gomez CAMPAIGN ASSISTANT Primary Care Provider [phone] Sahnda Rg NP Primary Care Provider [phone] Jas Cordero CAMPAIGN ASSISTANT Unavailable Unavailable Encounter Details Date Type Department Care Team (Late st Contact Info) Description 08/05/2022 Orders Only [facility] [address] [place] [address] Matthew Dunbar MD [address] [place] [address] Social History Tobacco Use Types Packs/Day Years Used Date Smoking Tobacco: Never Assessed Sex and Gender Information Value Date Recorded Sex Assigned at Male 06/27/2022 10:29 AM EDT Legal Sex Male 10:29 AM EDT Gender Identity Male 06/27/2022 10:29 AM EDT Sexual Orientation Straight 06/27/2022 10 :29 AM EDT documented as of this encounter Plan of Treatment Upcoming Encounters Date Type Department Care Team (Late st Contact Info) Description 01/01/2025 9:30 AM EDT Office Visit [facility] [address] [place] [address] Shanda Rg NP [address] [place] [address] 01/30/2025 1:00 PM EDT Clinical Support [facility] [address] [place] [address] Cait Velazquez RN documented as of this encounter Visit Diagnoses Not on filedocumented in this encounter Care Teams Customer Relations Advisor Relationship Specialty Start Date End Date Carmen Faust MD PCP - General Family Medicine 02/17/20 09/20/22 Cali Steward FNP PCP - General Family Medicine 09/21/22 10/26/22 Jada Erickson FNP PCP - General Family Medicine 10/27/22 06/05/23 Shanda Rg NP [address] [place] [address] PCP - General Family Medicine 06/06/23 Jas Cordero FNP [address] [place] [address] Nurse Practitioner Family Medicine 07/24/23 Aixa Ng Associate Chief NurseResidential Field Manager 09/11/23 documented as of this encounter
--- OUTSIDE RECORDS SUMMARY | 2024-11-15 15:12 | XMS_ITS | Encounter Summary ---
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 Name Role Phone Shanda Rg NP Primary Care Provider [phone] Jas Cordero Unavailable Unavailable Encounter Details Date Type Department Care Team ([facility] st Contact Info) Description 08/15/2024 Telephone [facility] MEDICINE [address], [place] [id number] Shanda Rg NP [address] [place] [address] Social History Tobacco Use Types Packs/Day Years Used Date Smoking Tobacco: Former Cigarettes Q uit: 10/02/2002 Passive Smoke Exposure: Past Smokeless Tobacco: Never Alcohol Use Standard Drinks/Week Comments Never 0 (1 standard drink = 0.6 oz pur e alcohol) Depression Answer Date Recorded Patient Health Questionnaire-9 Score 9 01/30/2024 Patient Health Questionnaire-9 Score 9 01/30/2024 Last PHQ-9: Questionnaire Data Not on file 0 01/30/2024 Housing Stability Answer Date Recorded What is [...] Answer Date Recorded Patient Health Questionnaire-2 Score 3 01/30/2024 Sex and Gender Information Value Date Recorded Sex Assigned at Male 06/27/2022 10:29 AM EDT Legal Sex Male 10:29 AM EDT Gender Identity Male 06/27/2022 10:29 AM EDT Sexual Orientation Straight 06/27/2022 10 :29 AM EDT documented as of this encounter Plan of Treatment Upcoming Encounters Date Type Department Care Team (Late st Contact Info) Description 01/01/2025 9:30 AM EDT Office Visit [facility] MEDICINE [address] [place] [phone] Shanda Rg NP [address] [place] [phone] 01/30/2025 1:00 PM EDT Clinical Support [address] [id number] Cait Velazquez, LUCY documented as of this encounter Visit Diagnoses Not on filedocumented in this encounter Additional Health Concerns Assessment Noted Time PHQ-9 Depression Total Score: 9 01/30/20 24 9:09 AM EDT documented as of this encounter Care Teams Semi Automatic Sewing Machine Operator Relationship Specialty Start Date End Date Shanda Rg NP [address] [place] [id number] PCP - General Family Medicine 06/06/23 Jas Cordero FNP [address] [place] [id number] Nurse Practitioner Family Medicine 07/24/23 Aixa Ng Thread SeparatorDrafting Supervisor 09/11/23 documented as of this encounter
--- OUTSIDE RECORDS SUMMARY | 2024-11-15 15:12 | XMS_ITS | Clinical Summary ---
Author Organization [employer] Address [address] [place] [address] 7 [place] [address] Care Team Providers Care Central Supply Tech Name Role Phone Shanda Rg NP Primary Care Provider [phone] Jas Cordero Unavailable Unavailable Allergies No known active allergies Medications Diclofenac Sodium (Voltaren) 1 % gel apply 2 gram by topical route 4 times every day to the affected area(s) 09/23/19 21 Active predniSONE (Deltasone) 20 MG tablet Take 2 tablets by mouth at bed time. 06/08/20 22 Active tiZANidine (Zanaflex) 4 MG capsule Take 1 capsule by mouth every 6 (six) hours. 02/21/20 20 Active Fluocinolone Acetonide Scalp (Sunbright-Smoothe /FS Scalp) 0.01 % oilIndications :Psoriasis Use on scalp every night . 118.28 mL 3 12/31/19 23 Active halobetasol (UltraVATE) 0.05 % ointmentIndica tions:Psoriasi s Apply topically 2 times daily. 50 g 1 12/31/19 23 Active furosemide (Lasix) 20 MG tablet Take 20 mg by mouth in the morning. 01/19/20 23 Active rOPINIRole (Requip) 0.5 MG tablet TAKE 2 TABLETS BY MOUTH TWICE DAILY IN THE MORNING AND AT BEDTIME 03/17/20 23 Active senna (Senokot) 8.6 MG tablet TAKE 1 TABLET BY MOUTH AT BEDTIME FOR CONSTIPATION 02/21/20 23 Active hydrOXYzine pamoate (Vistaril) 25 MG capsule Take 1 capsule (25 mg) by mouth at bedtime. 30 capsule 09/05/19 24 Active cetirizine (ZyrTEC) 10 MG tabletIndicati ons:Seasonal allergic rhinitis, unspecified trigger Take 1 tablet (10 mg) by mouth in the morning. 90 tablet 12/26/19 24 Active famotidine (Pepcid) 40 MG tabletIndicati ons:Gastroesop hageal reflux disease without esophagitis TAKE 1 TABLET BY MOUTH EVERY DAY 90 tablet 06/17/20 24 Active metFORMIN (Glucophage) 500 MG tabletIndicati ons:Type 2 diabetes mellitus without complication, without long-term current use of insulin (CMS/HCC) TAKE 1 TABLET BY MOUTH EVERY MORNING WITH A MEAL 90 tablet 1 06/19/20 24 Active cholecalcifero l (D3 Super Strength) 50 MCG (1999) capsuleIndicat ions:Vitamin D deficiency TAKE 1 CAPSULE BY MOUTH EVERY DAY 90 capsule 1 06/19/20 24 Active ustekinumab (Stelara) injectionIndic ations:Psorias is Inject 0.5 mL (45 mg) under the skin every 3 (three) months. 0.5 mL 10 06/28/20 24 Active folic acid (Folvite) 1 MG tabletIndicati ons:Psoriasis TAKE 1 TABLET BY MOUTH EVERY MORNING 90 tablet 1 08/29/19 25 Active atorvastatin (Lipitor) 80 MG tablet TAKE 1 TABLET BY MOUTH AT BEDTIME 90 tablet 1 08/29/19 25 Active econazole nitrate 1 % creamIndicatio ns:Tinea pedis of both feet Apply topically between toes of both feet for 14 days 30 g 09/04/19 25 Active zolpidem (Ambien) 10 MG tabletIndicati ons:Major depressive disorder with psychotic features (CMS/HCC) TAKE 1 TABLET BY MOUTH EVERY DAY AT BEDTIME NEEDED FOR SLEEP Do not start before September 15, 2024. 30 tablet 09/15/19 25 Active ARIPiprazole (Abilify) 10 MG tablet Take 10 mg by mouth in the morning. 07/30/20 24 Active busPIRone (Buspar) 15 MG tablet TAKE 1 TABLET BY MOUTH THREE TIMES DAILY IN THE MORNING, AT NOON, AND IN THE EVENING 08/27/20 24 Active metoprolol tartrate (Lopressor) 100 MG tablet TAKE 1 TABLET BY MOUTH TWICE DAILY IN THE MORNING AND IN THE EVENING 08/19/20 24 Active risperiDONE (RisperDAL) 1 MG tablet Take 1 mg by mouth at bedtime. 09/13/19 25 Active venlafaxine XR (Effexor XR) 75 MG 24 hr capsule TAKE 1 CAPSULE BY MOUTH EVERYDAY AT NOON WITH FOOD (WITH 150 MG CAPSULE) 07/16/20 24 Active eszopiclone (Lunesta) 3 MG tablet Take 3 mg by mouth at bedtime. 07/09/20 24 Active mirtazapine (Remeron) 15 MG tablet Take 7.5 mg by mouth at bedtime. Active losartan (Cozaar) 100 MG tablet TAKE 1 TABLET BY MOUTH EVERY MORNING 90 tablet 10/23/19 25 Active gabapentin (Neurontin) 300 MG capsuleIndicat ions:Radiculop athy, cervical region TAKE 1 CAPSULE BY MOUTH TWICE DAILY IN THE MORNING AND AT NOON and TAKE 2 CAPSULES BY MOUTH EVERY DAY AT BEDTIME 120 capsule 10/23/19 25 Active amLODIPine (Norvasc) 5 MG tablet TAKE 1 TABLET BY MOUTH EVERY MORNING 90 tablet 10/23/19 25 Active TRUEplus Lancets 33G miscIndication s:Type 2 diabetes mellitus without complication, unspecified whether watermaster insulin use ([facility]) TEST BLOOD SUGAR ONCE DAILY 100 each 10/30/19 25 Active glucose blood (FREESTYLE LITE) test stripIndicatio ns:Type 2 diabetes mellitus without complication, unspecified whether detention insulin use ([facility]) TEST BLOOD SUGAR ONCE DAILY 50 each 10/30/19 25 Active Blood Glucose Monitoring Suppl (FreeStyle Lite) w/Device kitIndications :Type 2 diabetes mellitus without complication, unspecified whether watermaster insulin use ([facility]) 1 kit 3 times daily. 1 kit 10/30/19 25 Active Alcohol Swabs 70 % padsIndication s:Type 2 diabetes mellitus without complication, unspecified whether watermaster insulin use ([facility]) 1 Units 3 times daily. 90 each 3 10/30/19 25 Active traMADol (Ultram) 50 MG tabletIndicati ons:Chronic pain of both knees TAKE 2 TABLETS BY MOUTH EVERY TWELVE HOURS NEEDED FOR SEVERE PAIN 112 tablet 10/31/19 25 Active TRUEplus Lancets 33G misc TEST BLOOD SUGAR ONCE DAILY 100 each 11 12/31/19 23 2024 Discontinued(R eorder (will not trigger notification to Pharmacy)) glucose blood (FREESTYLE LITE) test stripIndicatio ns:Type 2 diabetes mellitus without complication, unspecified whether watermaster insulin use ([facility]) Test blood sugars once a day 50 each 11 05/19/20 23 2024 Discontinued(R eorder (will not trigger notification to Pharmacy)) losartan (Cozaar) 100 MG tablet TAKE 1 TABLET BY MOUTH EVERY MORNING 90 tablet 07/10/20 24 2024 Discontinued amLODIPine (Norvasc) 5 MG tablet TAKE 1 TABLET BY MOUTH EVERY MORNING 90 tablet 07/10/20 24 2024 Discontinued gabapentin (Neurontin) 300 MG capsuleIndicat ions:Radiculop athy, cervical region TAKE 1 CAPSULE BY MOUTH TWICE DAILY IN THE MORNING AND AT NOON and TAKE 2 CAPSULES BY MOUTH EVERY DAY AT BEDTIME 120 capsule 09/20/19 25 2024 Discontinued traMADol (Ultram) 50 MG tabletIndicati ons:Chronic pain of both knees Take 2 tablets (100 mg) by mouth every 12 (twelve) hours if needed for severe pain for up to 28 days. 112 tablet 10/01/19 25 2024 Discontinued Blood Glucose Monitoring Suppl (FreeStyle Lite) w/Device kit 1 kit. 2024 Discontinued(R eorder (will not trigger notification to Pharmacy)) Alcohol Swabs 70 % pads 2024 Discontinued(R eorder (will not trigger notification to Pharmacy)) Active Problems Problem Noted Date Diagnosed Date Chronic pain syndrome 10/19/2024 Assessment & Plan (10/19/2024 12:10 PM EST): -[place] [facility] [place] -continue tramadol as ordered -encouraged to continue CRM SPECIALIST appointments and encouraged to give some thought to trial injections offered by pain management providers -will discuss his participation in chronic pain group at next visit Gastroesophageal reflux disease without esophagi tis 03/12/2024 Assessment & Plan (07/06/2024 5:06 PM EST): -has improved since starting famotidine and initiating GERD prevention measures discussed at previous visit -discussed continuing famotidine for 8 more weeks before attempting to discontinue and assess his response. Patient agrees with this plan Assessment & Plan (03/24/2024 2:03 PM EDT): Reviewed low acid diet, small frequent meals/snacks. Trial famotidine, Follow up in 4-6 weeks Right shoulder pain 02/06/2024 Assessment & Plan (07/06/2024 4:48 PM EST): -patient is encouraged to complete scheduled MRI to determine rotator cuff tear and follow-up with ortho regarding surgical repair -apply warm compress -continue previously rx'ed tramadol for pain, may supplement with 650 mg tylenol q6h Assessment & Plan (02/06/2024 9:16 PM EDT): -question adhesive capsulitis r/t diabetes or rotator cuff tear -will refer to ortho for further evaluation given degree of ROM limitation -last MRI completed in 2002 Class 1 obesity due to exces s calories without serious comorbidity with body mass index (BMI) of 33.0 to 33.9 in adult 02/06/2024 Assessment & Plan (02/06/2024 9:18 PM EDT): -Healthy diet and exercise teaching completed: Eat a variety of fruit and vegetables, whole grains such as whole-wheat flour, bulgur (cracked wheat), oatmeal, and brown rice. Intake protein from beans, nuts, fish, and lean meats. Eat low-fat or fat- free dairy products. Limit highly processed foods such as hot dogs, sandwich meat, etc. Engage in minimum of 150 min of moderate intensity exercise weekly -lipids ordered Chronic pain of both knees 05/13/2023 Assessment & Plan (05/13/2023 8:07 PM EDT): Refer pain medicine Continue elevation Will continue Tramadol 50mg 1-2 tablets every 12 hours PRN for severe pain and Gabapentin 300mg 1 capsule twice a day and 2 capsules at bedtime, 4 pills daily Followup 3 months or sooner PRN with new PCP Health care maintenance 05/13/2023 Overview (05/13/2023): Routine Health Maintenance: Immunizations: Receive Hep B dose 1 04/13/23 + PCV 20 HIV: Non-reactive 07/10/2019 Hep C: Non-reactive 07/10/2019 Hepatitis B: Nonreactive surface antibodies 07/10/2019, needs repeat Hep B vaccine series. Receive Hep B dose 1 04/13/23 Colonoscopy: 07/12/2021, internal hemorrhoids polyp x >4. Repeat 4-5 years in 2024 PSA: Due, ordered 04/13/23 Lung cancer: Quit 2002, does not meet criteria Eye exam: 03/20/23 Dental: Referred 12/08/22 Insomnia 05/13/2023 Overview (05/13/2023): Care managed by Psych provider Uses CPAP at night. Goes to bed 11 pm-4 AM. F/u Sleep medicine in May. Treats with Ambien. Reports dose was decreased to 5 mg, and he has been taking 2 tablets. Psych decreased dose to 5mg. When he takes only 5 mg, he only sleeps 2 hours Assessment & Plan (05/13/2023 8:20 PM EDT): Discussed with pt He agreed to notify Psych provider Shantell gordon that Ambien dose 5 mg is not functioning Notify clinic if he is unable to contact psych provider F/u PRN Dyspnea on exertion 03/12/2023 Overview (03/12/2023): Cardiology 11/24/22: Abnormal chest xray. CT lung w/o contrast. Diet and exercise program for weight loss, conditioning, and reduction of CV risk 01/24/23: appt Cardiology f/u 1 year 03/01/23: CT lung showed no pulmonary or mediastinal abnormality; incidental finding fatty liver. F/u PRN Seasonal allergic rhinitis 12/18/2022 Overview (04/13/2023): Sx of allergic rhinitis Will Rx cetirizine Followup 3 months or sooner PRN Bulging lumbar disc 10/25/2022 Cervical radiculopathy 09/21/2022 Overview (04/13/2023): Xray Cervical spine 03/31/23 Cervical spondylosis at the C6-C7 level: There is narrowing of the C6-C7 disc space with some mild spurring being present. There is mild anterior neural foraminal encroachment bilaterally at the C6-C7 disc space level related to spurring of the joints of [place]. Cause of cervical radiculopathy and numbness in hands/arms Numbness may also be related to diabetic neuropathy Assessment & Plan (05/13/2023 8:06 PM EDT): Pt has chronic back pain related to bulging discs and chronic back changes. Completed PT Pt aware of options including: injections, nerve stimulator, spinal surgery Will refer to pain medicine to discuss tx again Will continue Tramadol 50mg 1-2 tablets every 12 hours PRN for severe pain and Gabapentin 300mg 1 capsule twice a day and 2 capsules at bedtime, 4 pills daily Followup 3 months or sooner PRN with new PCP Lumbar radiculopathy 09/21/2022 Overview (05/13/2023): -Continues with PT, only noticing mild improvement -Failed OTC analgesics -Evaluated by pain management , underwent epidural injections with no relief, declines interest in returning at this time -Continues with tizanidine and tramadol, and gabapentin RUBINA murphy completed and using MRI lumbar spine May 2022 that showed slight lumbar dextrocurvature with trace [id number] lateral lithesis at L4-L5. Trace anterolithesis at L4-L5 with concentric disc bulging w/o sig canal or neural foraminal stenosis. Mild annular bulging L1-L2 and L3-L4, formaminal disc protrusion right L2-L3 Assessment & Plan (07/06/2024 5:00 PM EST): -chronic secondary to disc disease -continue tramadol and gabapentin as rx'ed -topical analgesic rx'ed -patient is willing to consider PT again, but wants to get shoulder pain resolved first -maintain daily physical activity and stretching Assessment & Plan (05/13/2023 8:05 PM EDT): Pt has chronic back pain related to bulging discs and chronic back changes. Pain affecting gait and ambulation Discussed RUBINA handicap katherine with pt, he will bring necessary paperwork to Forms Team in Medical records Completed PT Pt aware of options including: injections, nerve stimulator, spinal surgery Will refer to pain medicine to discuss tx again Will continue Tramadol 50mg 1-2 tablets every 12 hours PRN for severe pain and Gabapentin 300mg 1 capsule twice a day and 2 capsules at bedtime, 4 pills daily Followup 3 months or sooner PRN with new PCP Assessment & Plan (09/21/2022 9:14 PM EST): -Acute on chronic lumbar radiculopathy -Discussed available tx options, pt reports prednisone has not been helpful in past -Increase gabapentin to 300mg in the morning, 300mg in the afternoon, and 600 at bedtime. Reviewed med safety and SE -encouraged to continue with PT and symptomatic management -Acupuncture clinic information provided -Red flag symptoms reviewed Follow up with PCP for TP appt in 1 month, sooner as needed. Pt in agreement with plan Major depressive disorder with psychotic feature s 08/16/2022 Assessment & Plan (01/30/2024 10:01 AM EDT): Again doing well. Continue current medications: Risperidone 0.5 mg at bedtime, Venlafaxine 150 mg daily, Abilify 20 mg daily, Buspirone 30 mg TID, and Zolpidem 10 mg to take 1/2 or 1 tab at bedtime. Also takes Tramadol and Gabapentin per PCP. F/U with therapist as usual and suggest following up on request for referral to agency prescriber. Meanwhile, since this provider will be retiring patient will be transferred to new [facility] Psychiatric Prescriber. Pt is aware that those appointments will be via televisit, and that the provider is not an [facility] employee. He gives verbal consent to share protected health information. I have wished him well. He agrees with the plan. Assessment & Plan (11/28/2023 10:16 AM EDT): Again doing well. Continue current medications: Risperidone 0.5 mg at bedtime, Venlafaxine 150 mg daily, Abilify 20 mg daily, Buspirone 30 mg TID, and Zolpidem 10 mg to take 1/2 or 1 tab at bedtime. Also takes Tramadol and Gabapentin per PCP. F/U with therapist as usual and suggest following up on request for referral to agency prescriber since this provider will be retiring. Meanwhile, F/U with me in 2 months. He agrees with the plan. Assessment & Plan (10/02/2023 10:29 AM EST): Not doing as well, with inadequate sleep. Will resume the Risperidone 0.5 mg at bedtime. Continue Venlafaxine 150 mg daily, Abilify 20 mg daily, Buspirone 30 mg TID, and Zolpidem 10 mg at bedtime. Also takes Tramadol and Gabapentin per PCP. F/U with therapist. On 06/01/2023 provider informed the patient that I would be retiring within the next year or so and suggested that he discuss with his therapist getting referral to agency prescriber. F/U with me in 2 months. He agrees with the plan. Assessment & Plan (08/01/2023 12:37 PM EST): He continues doing very well. We will continue simplifying his psychiatric med regimen. He will not stop the Risperidone 0.5 mg at bedtime. Continue Venlafaxine 150 mg daily, Abilify 20 mg daily, Buspirone 30 mg TID, and Zolpidem 10 mg at bedtime. Also takes Tramadol and Gabapentin per PCP. F/U with therapist. On 06/01/2023 provider informed the patient that I would be retiring within the next year or so and suggested that he discuss with his therapist getting referral to agency prescriber. F/U with me in 2 months. He agrees with the plan. Assessment & Plan (06/01/2023 10:02 AM EDT): He continues doing very well. He is on significant psychiatric polypharmacy and we olivas working on simplifying regimen. He will stop Risperidone 1 mg at bedtime. He will start Risperidone 0.5 mg at bedtime. Continue Venlafaxine 150 mg daily, Abilify 20 mg daily, Amitriptyline 75 mg at bedtime, Buspirone 30 mg TID, and Zolpidem 10 mg at bedtime. Also takes Tramadol and Gabapentin per PCP. F/U with therapist. Today 06/01/2023 provider informed the patient that I would be retiring within the next year or so and suggest that he discuss with his therapist getting referral to agency prescriber. Meanwhile, F/U with me in 2 months. He agrees with the plan. Assessment & Plan (04/03/2023 9:23 AM EDT): He is still managing very well. He is on significant psychiatric polypharmacy and today says he is willing to consider simplifying regimen. He will stop the Venlafaxine 37.5 mg daily. He will continue Venlafaxine 150 mg daily. Will also continue Risperidone 1 mg at bedtime (will continue discussing option of decreasing this). He also takes Abilify 20 mg daily, Amitriptyline 75 mg at bedtime, Buspirone 30 mg TID, and Zolpidem 10 mg at bedtime. Also takes Tramadol and Gabapentin per PCP. F/U with therapist. F/U with me in 2 months. He agrees with the plan. Assessment & Plan (01/17/2023 1:22 PM EDT): He is still managing very well. Mood and hallucinations controlled. Continue current medications for now, but will plan to continue simplifying regimen. F/U with therapist. F/U with me in 2 months. He agrees with the plan. Assessment & Plan (11/14/2022 4:05 PM EDT): Although he c/o increased anxiety, he is actually managing very well. Suggest he work with therapist to learn nonpharmacological techniques for managing anxiety. Mood and hallucinations controlled. Continue current medications for now, but will plan to continue simplifying regimen. F/U with therapist. F/U with me in 2 months. He agrees with the plan. Assessment & Plan (09/27/2022 10:02 AM EST): He continues to improve. Mood and hallucinations improved. Finding therapy very helpful. Pt prefers not to make any med changes at this time, but will plan to continue simplifying regimen. F/U with therapist. F/U with me in 6-8 weeks. He agrees with the plan. Assessment & Plan (08/16/2022 10:36 AM EST): He is doing better. Hallucinations improved. Will increase to Risperidone 1 mg at bedtime. Decrease to Abilify 20 mg daily, continue cross-titration. Continue other medications as usual. F/U with therapist. F/U with me in 6 weeks. He agrees with the plan. Periodic limb movement disorder 08/04/2022 Type 2 diabetes mellitus without complication Overview (05/13/2023): Education provided re: therapeutic lifestyle changes. Encouraged patient to exercise/walk as much as possible, avoid soda/sugary beverages, drink water, eat high fiber/whole grains, fresh or frozen fruits and veg, try to avoid greasy and/or sugary foods. Medication regimen: Metformin 500 mg 1 tablet daily AM. A1c: 6.0 on 04/13/23 (Target </= 7.0) Glucose: 164 on 04/13/23 Microalbumin/Cr:Alb: WNL 06/04/2020. Due repeat. Discuss next visit Lipids: Elevated 11/05/21 Eye exam: 03/20/23 Dental: Referred 12/08/22 PNA (PPSV, then PCV 13): PCV 20 due, received 04/13/23 TDap/Td: 07/03/2019 Foot exam/peripheral pulses: perform next visit CL/ARB: losartan 100 mg daily Statin: Atorvastatin 40 mg daily Assessment & Plan (10/19/2024 12:20 PM EST): -A1c at goal of <7%. POCT A1c 6.3% and glucose 105 mg/dL today -continue: current regimen -microalbumin: ordered today -foot exam: completed today -dental: encouraged to set up an appointment -eye exam: encouraged to set up appointment -daily foot exams encouraged -low carb, low sugar diet and daily physical activity as tolerated advised -follow-up 4 months Assessment & Plan (03/24/2024 2:02 PM EDT): At goal today, compliant with medications, pt endorses less appetite, but no constitutional symptoms and is concurrent with travelling as she usually cooks, monitor Assessment & Plan (02/06/2024 9:10 PM EDT): -A1c at goal of <7%. POCT A1c 6.3 % today -continue metformin as prescribed -microalbumin: ordered today -foot exam: will complete at next visit -dental: patient advised to schedule an appointment -eye exam: due 02/2024 -CL/ARB therapy: losartan 100 mg -Statin: atorvastatin 40 mg -daily foot exams encouraged -low carb, low sugar diet and daily physical activity advised Assessment & Plan (05/13/2023 8:15 PM EDT): Continue metformin F/u PRN Osteochondroma of bone 08/30/2016 Hypertensive disorder 01/01/2016 Overview (05/13/2023): Losartan 100 mg daily Amlodipine 5 mg daily Assessment & Plan (10/19/2024 12:18 PM EST): -stable -continue current regimen and lifestyle changes Assessment & Plan (02/06/2024 9:02 PM EDT): -BP above target goal of <130/80 mmHg -continue amlodipine, metoprolol, and losartan as ordered -microalbumin: ordered today -ASCVD risk: to be calculated pending lipid results today -daily BP monitoring advised -low salt diet and 30 min moderate intensity daily exercise recommended -Reviewed ED precautions to include chest pain, shortness of breath, severe headache, sudden vision changes or BP >=180/>=120 mmHg. -Call clinic if three or more BP readings >140/90. -follow-up 3 months Assessment & Plan (05/13/2023 8:17 PM EDT): Pt taking medication as directed BP elevated today in clinic 153/98 Asymptomatic Pt will check BP daily at home, notify clinic if readings > 140/90 Will schedule for 1 month f/u RN BP check Psoriasis 01/01/2016 Overview (04/13/2023): Receives injections for psoriasis New onset hand joint pain/stiffness x 5 months. Assessment & Plan (05/13/2023 8:03 PM EDT): Care managed by Dr. Malone. Injection treated psoriasis Worsening hand joint pain. Provider notified Derm specialist of worsening hand pain, nail pain, and ants feeling in hands Will schedule for f/u F/u PRN with new PCP ?? Resolved Problems Problem Noted Date Diagnosed Date Resolved Date Class 1 obesity 04/06/2023 02/06/2024 Pain of tooth socket 12/16/2016 023 Backache 08/30/2016 09/21/2022 Encounters Date Type Department Care Team Description 11/08/2024 Population Health Risk Score [facility] ([facility]) Department [address] [id number] Provider, Population Health Generic 10/29/2024 Refill [facility] [address] [place] [address] Name, MD Jerardo Chronic pain of both knees 10/29/2024 Refill [facility] [address] [place] [address] Shanda Rg NP Type 2 diabetes mellitus without complication, unspecified whether watermaster insulin use (CMS/HCC) 10/29/2024 Refill [facility] [address] [place] [address] Shanda Rg NP Type 2 diabetes mellitus without complication, unspecified whether detention insulin use (CMS/HCC) (Primary Dx) 10/22/2024 Telephone [facility] [address] [place] [address] Shanda Rg NP 10/21/2024 Refill [facility] [address] [place] [address] Shanda Rg NP Radiculopathy, cervical region 10/16/2024 1:15 PM EST Office Visit [facility] [address] [place] [address] Kuldip, Oly, OD Presbyopia (Primary Dx) 10/15/2024 Telephone [facility] [address] [place] [address] Sudha Werner MA 10/02/2024 2:00 PM EST Clinical Support [facility] [address] [place] [id number] Cait Velazquez, food safety coordinator pain of both knees (Primary Dx) 10/02/2024 Travel 10/02/2024 Telephone [facility] [address] [place] [phone] Cait Velazquez, LUCY Recommend CRM SPECIALIST Tier 3 09/30/2024 Refill [facility] [address] [place] [id number] Shanda Rg NP Chronic pain of both knees 09/20/2024 Refill [facility] [address] [place] [address] Shanda Rg NP Radiculopathy, cervical region 09/11/[address] [address] Shanda Rg NP Care Coordination (ICP Care Plan) 09/10/[address] [facility] PEDS [address] [place] [address] Shanda Rg NP Major depressive disorder with psychotic features (CMS/HCC) 09/09/[address] [address] Marianne Rico RN Call Back Request 09/06/2024 1:00 PM EST Office Visit [facility] OPTOMETRY [address] [place] [address] Kuldip, Oly, OD Diabetes type 2, no ocular involvement (CMS/HCC) (Primary Dx); Dry eyes, bilateral; Presbyopia 09/06/2024 Travel 09/06/2024 Orders Only [facility] MED[facility]INE [address] [place] [address] Shanda Rg NP Elevated BUN (Primary Dx); High triglycerides 09/04/2024 2:30 PM EST Office Visit [facility] [address] [place] [address] Shanda Rg NP Type 2 diabetes mellitus without complication, without long-term current use of insulin (CMS/HCC) (Primary Dx); Tinea pedis of both feet; Encounter for immunization; Dietary counseling; Exercise counseling; Chronic pain syndrome; Primary hypertension 09/04/2024 Travel 08/30/2024 Refill [facility] [address] [place] [address] Shanda Rg, DEEPA Chronic pain of both knees 08/27/[address] [facility] & PED[facility] [address] [place] [address] Shanda Rg, ROUTE SALES SPECIALIST 08/27/2024 Refill [facility] [address] [place] [address] Shanda Rg, DEEPA Psoriasis 08/20/2024 Telephone [facility] [address] [place] [address] Sudha Werner CA [employer] 08/19/2024 Refill [facility] MED & PEDS [address] [place] [address] Shanda Rg, ROUTE SALES SPECIALIST Radiculopathy, cervical region from Last 3 Months Immunizations Name Administration Dates Next Due Hep B, adult 04/13/2023 Influenza Injectable Quadriv alant Preservative Free IIV4 MDCK 07/10/2020 Influenza injectable quadriv alent IIV4 with preservative 05/16/2018,05/19/2016 Moderna Covid-19 Vaccine 12+ 2021,12/08/19 21,11/09/2020 Pfizer Covid-19 Vaccine 12+ Bivalent 09/02/2022 Pneumococcal Conjugate PCV 20 04/13/2023 Pneumococcal Polysaccharide PPSV23 10/26/2021, Tdap 07/03/2019 Zoster, Recombinant 09/23/2020,07/10/2020 Family History Medical History Relation Name Comments Heart disease Father Heart attack Mother Relation Name Status Comments Father Mother Social History Tobacco Use Types Packs/Day Years Used Date Smoking Tobacco: Former Cigarettes Q uit: 10/02/2002 Passive Smoke Exposure: Past Smokeless Tobacco: Never Tobacco Cessation:Counseling Given: Not Answered Alcohol Use Standard Drinks/Week Comments Never 0 (1 standard drink = 0.6 oz pur e alcohol) Depression Answer Date Recorded Patient Health Questionnaire-9 Score 09/04/2024 Patient Health Questionnaire-9 Score 09/04/2024 Last PHQ-9: Questionnaire Data Not on file 0 09/04/2024 Housing Stability Answer Date Recorded What is your housing situation today? I have conrado osborn 09/04/[address] you li ve. Do you have problems with any of the following? Pests such as bugs, ants, or mice 09/04/2024 Food Insecurity Answer Date Recorded Within the past 12 months, y ou worried that your food would run out before you got money to buy more: Sometimes True 2024 Within the past 12 months,th e food you bought just didn't last and you didn't have enough money to get more: Sometimes True 09/04/2024 Transportation Answer Date Recorded In the past 12 months, has l ack of transportation kept you from medical appts, meetings, work or from getting things needed for daily living? No 09/04/2024 Utilities Answer Date Recorded In the past 12 months, has t he electric, gas, oil or water company threatened to shut off services in your home? No 09/04/2024 Depression Answer Date Recorded Patient Health Questionnaire-2 Score 6 09/04/2024 Internet Access Answer Date Recorded Internet Access Q1 No 09/04/2024 Internet Access Q2 I cannot afford it 09/04/2024 Sex and Gender Information Value Date Recorded Sex Assigned at Male 06/27/2022 10:29 AM EDT Legal Sex Male 10:29 AM EDT Gender Identity Male 06/27/2022 10:29 AM EDT Sexual Orientation Straight 06/27/2022 10 :29 AM EDT Last Filed Vital Signs Vital Sign Reading Time Taken Comments Blood Pressure 114/80 09/04/2024 2:31 PM EST Pulse 88 09/04/2024 2:31 PM EST Temperature 37.1 ??C (98.8 ??F) 09/04/2024 2:31 PM ES T Respiratory Rate 22 09/04/2024 2:31 PM EST Oxygen Saturation 96% 04/05/2024 3:31 PM EDT Inhaled Oxygen Concentration - - Weight 97.2 kg (214 lb 3.2 oz) 09/04/2024 2:31 P M EST Height 167.6 cm (5' 6 ) 09/04/2024 2:31 PM EST Body Mass Index 34.57 09/04/2024 2:31 PM EST Plan of Treatment Upcoming Encounters Date Type Department Care Team (Late st Contact Info) Description 01/01/2025 9:30 AM EDT Office Visit [facility] [address] [place] [address] Shanda Rg NP [address] [place] [address] 01/30/2025 1:00 PM EDT Clinical Support [facility] [address] [place] [address] Cait Velazquez, RN Health Maintenance Due Date Last Done Comments CT Colonography 1965 FIT DNA/Cologuard 1965 FIT 1965 FOBT 1965 Sigmoidoscopy 1965 Hepatitis B Vaccines (2 of 3 - 19+ 3-dose series) 05/11/2023 04/13/2023 COVID-19 Vaccine ( season) 2024 09/02/2022, 2021, 12/07/2020, Additional history exists Influenza Vaccine (#1) 2024 , 05/16/2018, 05/19/2016 Depression Monitoring (PHQ-9) 03/04/2025 09/04/2024, 09/04/2024 Diabetes: Hemoglobin A1C 03/04/2025 025, 11/03/2023, 04/07/2023, Additional history exists Alcohol/Substance Use Screening 09/04/2025 09/04/2024 Depression Screening 09/04/2025 09/04/2024, 09/04/19 25 Diabetes: Foot Exam 09/04/2025 09/04/2024, 09/04/2024, 09/04/2024, Additional history exists SDOH Screening 09/04/2025 09/04/2024 Diabetes: Urine Protein Screening 09/05/2025 09/05/2024, 11/09/2023, 06/04/2020 Lipid Panel 09/05/2025 09/05/2024, 10/26, 11/05/2021, Additional history exists Tobacco Screening 09/20/2025 09/20/2024 Colonoscopy 07/12/2026 07/12/2021 Colorectal Cancer Screening 07/12/2026 Eye Exam 09/06/2026 09/06/2024, 08/28, 09/06/2024, Additional history exists DTaP/Tdap/Td Vaccines (2 - Td or Tdap) 07/03/2029 07/03/2019 RSV Patients and Patients Aged 60 years or older (1 - 1-dose 75+ series) 2040 Zoster Vaccines Completed 09/23/2020, 07/10/2020 Pneumococcal Vaccine: 50+ Years Completed 04/13/2023, 10/26/2021, 07/03/2019 HIV Screening Completed 11/09/2023 Hepatitis C Screening Completed 11/09/2023 HIB Vaccines Aged Out No longer eligi ble based on patient's age to complete this topic HPV Vaccines Aged Out No longer eligi ble based on patient's age to complete this topic Hepatitis A Vaccines Aged Out No long er eligible based on patient's age to complete this topic IPV Vaccines Aged Out No longer eligi ble based on patient's age to complete this topic Meningococcal Vaccine Aged Out No fadumo zunilda eligible based on patient's age to complete this topic RSV under 20 months Aged Out No longe r eligible based on patient's age to complete this topic Rotavirus Vaccines Aged Out No longer eligible based on patient's age to complete this topic Procedures Procedure Name Priority Date/Time Associated Diagnosis Comments POCT ADRIAN-14 URINE DRUG SCREEN Routine 10/02/2024 1:58 PM EST Chronic pain of both knees ALBUMIN, RANDOM URINE W/CREATININE Routine 09/05/2024 8:35 AM EST Type 2 diabetes mellitus without complication, without long-term current use of insulin (CMS/HCC) BASIC METABOLIC PANEL Routine 09/05/2024 8:35 AM EST Type 2 diabetes mellitus without complication, without long-term current use of insulin (CMS/HCC) LIPID PANEL, STANDARD Routine 09/05/2024 8:35 AM EST Type 2 diabetes mellitus without complication, without long-term current use of insulin (CMS/HCC) POCT GLYCATED HEMOGLOBIN, TOTAL Routine 09/04/2024 2:37 PM EST Type 2 diabetes mellitus without complication, without long-term current use of insulin (CMS/HCC) POCT GLUCOSE Routine 09/04/2024 2:33 PM EST Type 2 diabetes mellitus without complication, without long-term current use of insulin (CMS/HCC) HEPATITIS C AB W/REFL TO HCV RNA, QN, PCR Routine 11/09/2023 3:25 PM EDT Routine screening for STI (sexually transmitted infection) HIV 1/2 ANTIGEN/ANTIBODY, FOURTH GENERATION W/RFL Routine 11/09/2023 3:25 PM EDT Routine screening for STI (sexually transmitted infection) HM COLONOSCOPY Routine 07/12/2021 from Last 3 Months or Most Recently Relevant to Health Maintenance Results * POCT ADRIAN-14 Urine Drug Screen (10/02/2024 1:58 PM EST) Urine Urine specimen obtained by clean catch procedure / Unknown 10/02/2024 1:58 PM EST Cait Moreira RN - 10/02/2024 1:58 PM EST UTOX cup Lot#[id number] Exp. 05/22/26 Internal Pass Control Negative for all substances us Shanda Kelseym ROUTE SALES SPECIALIST POINT OF CARE TEST ENTER/EDIT O RDERABLES Final Result * Albumin, Random Urine W/Creatinine (09/05/2024 8:35 AM EST) Creatinine, Urine 117.04 mg/dL [facility] Microalbumin Urine 8.0 mg/L [facility] Microalbum Creatinine Ratio Ur 6.8 <30 ug/mg cr [facility] Comment:Albumin/Creatinine R atio Reference Ranges: Normal: < 30 ug/mg creatinine Microalbuminuria: 30 - 300 ug/mg creatinineClinical Albuminuria: > 300 ug/mg creatinine Urine (Urine, Random) 09/05/2024 8:35 AM EST 09/05/2024 11:21 AM EST [facility] Klesey ROUTE SALES SPECIALIST LAB URINE ORDERABLES Final Resu lt Performing Organization Address [facility] Co de Phone Number [facility] [address] [place] [address] [phone] * (ABNORMAL) Lipid Panel, Standard (09/05/2024 8:35 AM EST) Triglycerides 344(H) <150 mg/dL [facility] Comment:Mild Lipemia.Desirab le Triglyceride: less than 150 mg/dLBorderline High Triglyceride 150-199 mg/dLHigh Triglyceride: 200-499 mg/dLVery High Triglyceride: greater than or equal to 5OO mg/dL Cholesterol 183 <200 mg/dL [facility] Comment:Desirable Cholestero l: less than 200 mg/dLBorderline High Cholesterol: 200-239 mg/dLHigh Cholesterol: greater than 239 mg/dL LDL Cholesterol Calculated 82 <100 mg/dL [facility] Comment:Desirable LDL: less than 100 mg/dLNear Optimal/Above Optimal LDL: 110- 129 mg/dLBorderline High LDL: 130-159 mg/dLHigh LDL: 160-189 mg/dLVery High LDL: greater than or equal to 190 mg/dL HDL Cholesterol 33(L) >40 mg/dL [facility] Comment:Desirable HDL: great er than 40 mg/dL Note: This HDL assay may give artificially low results in patients with liver disease. Blood Venous blood specimen / Unknown 09/05/2024 8:35 AM EST 09/05/2024 11:23 AM EST Shanda Rg ROUTE SALES SPECIALIST LAB BLOOD ORDERABLES Final Resu lt Performing Organization Address [facility]/ZIP Co de Phone Number [facility] [address] [place] [address] [phone] * (ABNORMAL) Basic Metabolic Panel (09/05/2024 8:35 AM EST) Sodium 141 135 - 145 mmol/L [facility] Potassium 4.3 3.3 - 5.1 mmol/L [facility] Chloride 105 96 - 108 mmol/L [facility] Carbon Dioxide 27 22 - 29 mmol/L [facility] Anion Gap 13 12 - 20 [facility] Urea Nitrogen (BUN) 35(H) 9 - 16 mg/dL [facility] Creatinine, Serum 1.19 0.5 - 1.4 mg/dL [facility] Estimated Glomerular Filt Rate >60 [facility] Comment:Chronic Kidney Disea se: Estimated GFR < 60 mL/min/1.13z6Wowuxe Kidney Disease: Estimated GFR < 15 mL/min/1.73m2 Glucose 140(H) 60 - 115 mg/dL [facility] Calcium 9.3 8.4 - 10.2 mg/dL [facility] Blood Venous blood specimen / Unknown 09/05/2024 8:35 AM EST 09/05/2024 11:23 AM EST Shanda Cole ROUTE SALES SPECIALIST LAB BLOOD ORDERABLES Final Resu lt [facility] [address] [place] [phone] * (ABNORMAL) POCT HGB A1C (09/04/2024 2:37 PM EST) Hemoglobin A1C 6.3(A) 4.0 - 6.0 % QC Media Lot # [id number] Lot# Expiration Date [id number] Blood 09/04/2024 2:37 PM EST [facility] Kelsey ROUTE SALES SPECIALIST POINT OF CARE TEST ENTER/EDIT O RDERABLES Final Result * POCT Glucose (09/04/2024 2:33 PM EST) Glucose Blood, POC 105 60 - 200 mg/dL [employer] Media Lot # [id number] Lot# Expiration Date [id number] Blood Capillary blood specimen / Unknown 09/04/2024 2:33 PM EST [facility] POINT OF CARE TEST ENTER/EDIT O RDERABLES Final Result * Hepatitis C Antibody with Reflex to HCV, RNA, Quantitative, Real-Time PCR (11/09/2023 3:25 PM EDT) Hepatitis C Antibody Nonreactive Nonreactive [facility] Comment:Antibodies to HCV no t detected; does not exclude early acuteHCV infection. Blood Venous blood specimen / Unknown 11/09/2023 3:25 PM EDT 11/09/2023 3:25 PM EDT [facility] B[facility] ORDERABLES Final Resu lt [facility] [address] [place] [phone] * HIV-1/2 Antigen and Antibodies, Fourth Generation, with Reflexes (11/09/2023 3:25 PM EDT) HIV AB/AG Nonreactive Nonreactive [facility] Comment:HIV-1 p24 Ag and/or HIV-1/HIV-2 Ab not detected.A test result that is nonreactive does not exclude thepossibility of exposure to or infection with HIV-1 and/orHIV-2. Nonreactive results in this assay for individualswith prior exposure to HIV-1 and/or HIV-2 may be due toantigen and antibody levels that are below the limit ofdetection of this assay.The [email or web address] HIV Ag/Ab Combo assay result andsupplemental assay results should be interpreted inconjunction with the patient's clinical presentation,history and other laboratory results. If the results areinconsistent with clinical evidence, additional testing issuggested to confirm the result. Blood Venous blood specimen / Unknown 11/09/2023 3:25 PM EDT 11/09/2023 3:25 PM EDT [facility] B[facility]OD ORDERABLES Final Resu lt [facility] [address] [place] [phone] [phone] * Colonoscopy (07/12/2021) Colonoscopy normal us Historical Provider HEALTH MAINTENANCE Edited Result - Final from Last 3 Months or Most Recently Relevant to Health Maintenance Insurance [address] [place] [address] [employer] [address] [place] [address] Care Teams Central Supply Tech Relationship Specialty Start Date End Date Shanda Rg NP [address] [place] [address] PCP - General Family Medicine 06/06/23 Jas Cordero FNP [address] [place], [place] Nurse Practitioner Family Medicine 07/24/23 Aixa Ng Network/Telecom EngineerLacquer Polisher 09/11/23
--- OUTSIDE RECORDS SUMMARY | 2024-11-15 15:12 | XMS_ITS | Encounter Summary ---
Author Organization [employer] Address [address] [place] [address] 7 [place] [address] Care Team Providers Care Administrative Services Coordinator Name Role Phone Shanda Rg NP Primary Care Provider [phone] Jas Cordero Unavailable Unavailable Encounter Details Date Type Department Care Team (Late st Contact Info) Description 10/16/2024 1:15 PM EST Office Visit [facility] OPTOMETRY [address] [place] [address] Kuldip, Oly, OD [address] [place] [address] Presbyopia (Primary Dx) Social History Tobacco Use Types Packs/Day Years Used Date Smoking Tobacco: Former Cigarettes Q uit: 10/02/2002 Passive Smoke Exposure: Past Smokeless Tobacco: Never Alcohol Use Standard Drinks/Week Comments Never 0 (1 standard drink = 0.6 oz pur e alcohol) Depression Answer Date Recorded Patient Health Questionnaire-9 Score 23 09/04/2024 Patient Health Questionnaire-9 Score 23 09/04/2024 Last PHQ-9: Questionnaire Data Not on file 0 09/04/2024 Housing Stability Answer Date Recorded What is your housing situation today? I have conrado anurag 09/04/[address] you li [...] AM EDT documented as of this encounter Progress Notes * Oly Christiansen OD - 10/16/2024 1:15 PM EST MH glasses were dispensed. documented in this encounter Plan of Treatment Upcoming Encounters Date Type Department Care Team (Late st Contact Info) Description 01/01/2025 9:30 AM EDT Office Visit [address] [address] Shanda Rg NP [address] [place] [address] 01/30/2025 1:00 PM EDT Clinical Support [facility] MEDICINE [address] [place] [phone] Cait Velazquez RN documented as of this encounter Visit Diagnoses Diagnosis Presbyopia- Primary documented in this encounter Additional Health Concerns Assessment Noted Time PHQ-9 Depression Total Score: 23 025 2:34 PM EST documented as of this encounter Care Teams Administrative Services Coordinator Relationship Specialty Start Date End Date Shanda Rg NP [address] [place] [address] PCP - General Family Medicine 06/06/23 Jas Cordero FNP [address] [facility] [place] [address] Nurse Practitioner Family Medicine 07/24/23 Aixa Ng Fire Alarm RepairerLiquor Stores And Agencies Supervisor 09/11/23 documented as of this encounter
--- OUTSIDE RECORDS SUMMARY | 2024-11-15 15:12 | XMS_ITS | Encounter Summary ---
Author Organization [employer] Address [address] [place] [address] 7[address] [place] [address] Care Team Providers Care Jet Handler Name Role Phone Jada EricksonP Primary Care Provider [phone] Shanda Rg NP Primary Care Provider [phone] Jas Cordero Unavailable Unavailable Reason for Visit * Reason Comments Med Refill Encounter Details Date Type Department Care Team (Late st Contact Info) Description 01/24/2023 Refill [facility] [address] [place] [address] Jada Erickson FNP [address] [place] [address] Dept of [place] [address] Pain; Cervical radiculopathy; Lumbar radiculopathy Social History Tobacco Use Types Packs/Day Years Used Date Smoking Tobacco: Former Cigarettes Q uit: 10/02/2002 Passive Smoke Exposure: Past Smokeless Tobacco: Never Alcohol Use Standard Drinks/Week Comments Never 0 (1 standard drink = 0.6 oz pur e alcohol) Sex and Gender Information Value Date Recorded Sex Assigned at Male 06/27/2022 10:29 AM EDT Legal Sex Male 10:29 AM EDT Gender Identity Male 06/27/2022 10:29 AM EDT Sexual Orientation Straight 06/27/2022 10 :29 AM EDT COVID-19 Exposure Response Date Recorded In the last 10 days, have yo u been in contact with someone who was confirmed or suspected to have Coronavirus/COVID-19? No / Unsure 01/03/2023 2:10 PM EDT documented as of this encounter Plan of Treatment Upcoming Encounters Date Type Department Care Team (Late st Contact Info) Description 01/01/2025 9:30 AM EDT Office Visit [facility] MEDICINE [address] [place] [address] Shanda Rg NP [address] [place] [address] 01/30/2025 1:00 PM EDT Clinical Support [facility] [place] [address] Cait Velazquez RN documented as of this encounter Visit Diagnoses Diagnosis Pain Generalized pain Cervical radiculopathy Brachial neuritis or radiculitis nos Lumbar radiculopathy Thoracic or lumbosacral neuritis or radiculitis, unspecified documented in this encounter Additional Health Concerns Assessment Noted Time PHQ-9 Depression Total Score: 9 01/18/20 23 12:56 PM EDT documented as of this encounter Care Teams Jet Handler Relationship Specialty Start Date End Date Jada Erickson FNP PCP - General Family Medicine 10/27/22 06/05/23 Shanda Rg NP [address] [place] [address] PCP - General Family Medicine 06/06/23 Jas Cordero FNP [address] [place] [address] Nurse Practitioner Family Medicine 07/24/23 Aixa Ng Machine Edge BanderBinding Machine Operator 09/11/23 documented as of this encounter
--- OUTSIDE RECORDS SUMMARY | 2024-11-15 15:12 | XMS_ITS | Encounter Summary ---
Author Organization [employer] Address [address] [place] [address] [address] [place] [address] Care Team Providers Care Cross Tie Cutter Name Role Phone Jada Erickson Primary Care Provider [phone] Shanda Rg NP Primary Care Provider [phone] Jas Cordero Unavailable Unavailable Reason for Visit * Reason Comments Med Refill Encounter Details Date Type Department Care Team (Late st Contact Info) Description 10/31/2022 Refill [facility] [address] [place] [address] Jas Cordero FNP Major depressive disorder with psychotic features (CMS/HCC) Social History Tobacco Use Types Packs/Day Years Used Date Smoking Tobacco: Former Cigarettes Q uit: 10/02/2002 Smokeless Tobacco: Never Alcohol Use Standard Drinks/Week [...] suspected to have Coronavirus/COVID-19? No / Unsure 11/02/2022 11:12 AM EST documented as of this encounter Miscellaneous Notes * Telephone Encounter - Cait Velazquez RN - 11/02/2022 11:52 AM EST FYI, Pt had GEM CUTTER RV today. Urine/Pill count WNL. Bp 152/108, stated he had taken his blood pressure medication this morning. documented in this encounter Plan of Treatment Upcoming Encounters Date Type Department Care Team (Late st Contact Info) Description 01/01/2025 9:30 AM EDT Office Visit [address] [address] Shanda Rg NP [address] [place] [address] 01/30/2025 1:00 PM EDT Clinical Support [address] [address] Cait Velazquez RN documented as of this encounter Visit Diagnoses Diagnosis Major depressive disorder with psychotic features (CMS/HCC) documented in this encounter Additional Health Concerns Assessment Noted Time PHQ-9 Depression Total Score: 9 09/27/19 23 9:22 AM EST documented as of this encounter Care Teams Cross Tie Cutter Relationship Specialty Start Date End Date Jada Erickson FNP PCP - General Family Medicine 10/27/22 06/05/23 Shanda Rg NP [address] [place] [address] PCP - General Family Medicine 06/06/23 Jas Cordero FNP [address] [place] [address] Nurse Practitioner Family Medicine 07/24/23 Aixa Ng Fly SetterCan Inspector 09/11/23 documented as of this encounter
--- OUTSIDE RECORDS SUMMARY | 2024-11-15 15:12 | XMS_ITS | Clinical Summary ---
Author Organization Unknown Care Team Providers Care Regional Sales Director Name Role Phone TERRELL ARENAS, JAMILA Unavailable Unavailable RAYO AYALA, RAFI Unavailable Unavailable Payers Payer Name Policy Type Policy Number Effective Date Expira tion Date MEDICAID [facility] [id number] Problems Condition Name Condition Details Condition Category Status Onset Date Resolution Date Last Treatment Date Treating Clinician Comments POST-TRAUMAT IC STRESS DISORDER, UNSPECIFIED Active 09-24 00:00: 00 Allergies, Adverse Reactions, Alerts Allergy Name Allergy Type Status Severity Reaction(s) Onset Date Inactive Date Treating Clinician Comments NKA Propensity to adverse reactions Active 2024-09 22:27:3 2 Medications Ordered Medication Name Filled Medication Name Start Date Stop Date Current Medication? Ordering Clinician Indication Dosage Frequency Signature (SIG) Comments Components amlodipine 5 mg tablet 2023-08 00:00: 00 09-23 23:59 :00 No [id number] 1 tablet EVERY AM 1 tablet EVERY AM (route: oral) Med Classific ation: Cardiovas cular Therapy Agents aripiprazol e 20 mg tablet 2023-08 00:00: 00 09-23 23:59 :00 No [id number] 1 tablet BEDTIME 1 tablet BEDTIME (route: oral) Med Classific ation: Central Nervous System Agents atorvastati n 80 mg tablet 2023-08 00:00: 00 09-23 23:59 :00 No [id number] 1 tablet BEDTIME 1 tablet BEDTIME (route: oral) Med Classific ation: Cardiovas cular Therapy Agents buspirone 30 mg tablet 2023-08 00:00: 00 09-23 23:59 :00 No [id number] 1 tablet 3 TIMES DAILY 1 tablet 3 TIMES DAILY (route: oral) Med Classific ation: Central Nervous System Agents cetirizine 10 mg tablet 2023-08 00:00: 00 09-23 23:59 :00 No [id number] 1 tablet EVERY AM 1 tablet EVERY AM (route: oral) Med Classific ation: Respirato ry Therapy Agents eszopiclone 3 mg tablet 2023-08 00:00: 00 09-23 23:59 :00 No [id number] 1 tablet BEDTIME 1 tablet BEDTIME (route: oral) Med Classific ation: Central Nervous System Agents folic acid 1 mg tablet 2023-08 00:00: 00 09-23 23:59 :00 No [id number] 1 tablet EVERY AM 1 tablet EVERY AM (route: oral) Med Classific ation: Electroly te Balance-N utritiona l Products furosemide 20 mg tablet 2023-08 00:00: 00 09-23 23:59 :00 No [id number] 1 tablet EVERY AM 1 tablet EVERY AM (route: oral) Med Classific ation: Cardiovas cular Therapy Agents gabapentin 300 mg capsule 2023-08 00:00: 00 09-23 23:59 :00 No [id number] 1 capsule 2 TIMES DAILY 1 capsule 2 TIMES DAILY (route: oral) Med Classific ation: Central Nervous System Agents gabapentin 300 mg capsule 2023-08 00:00: 00 09-23 23:59 :00 No [id number] 2 capsule BEDTIME 2 capsule BEDTIME (route: oral) Med Classific ation: Central Nervous System Agents losartan 100 mg-hydrochl orothiazide 12.5 mg tablet 2023-08 00:00: 00 09-23 23:59 :00 No [id number] 1 tablet EVERY AM 1 tablet EVERY AM (route: oral) Med Classific ation: Cardiovas cular Therapy Agents metformin 500 mg tablet 2023-08 00:00: 00 09-23 23:59 :00 No [id number] 1 tablet EVERY AM 1 tablet EVERY AM (route: oral) Med Classific ation: Endocrine metoprolol tartrate 100 mg tablet 2023-08 00:00: 00 09-23 23:59 :00 No [id number] 1 tablet 2 TIMES DAILY 1 tablet 2 TIMES DAILY (route: oral) Med Classific ation: Cardiovas cular Therapy Agents mirtazapine 15 mg tablet 2023-08 00:00: 00 09-23 23:59 :00 No [id number] 0.5 tablet BEDTIME 0.5 tablet BEDTIME (route: oral) Med Classific ation: Central Nervous System Agents Risperdal 0.5 mg tablet 2023-08 00:00: 00 09-23 23:59 :00 No [id number] 1 tablet BEDTIME 1 tablet BEDTIME (route: oral) Med Classific ation: Central Nervous System Agents ropinirole 0.5 mg tablet 2023-08 00:00: 00 09-23 23:59 :00 No [id number] 2 tablet 2 TIMES DAILY 2 tablet 2 TIMES DAILY (route: oral) Med Classific ation: Central Nervous System Agents venlafaxine ER 150 mg capsule,ext ended release 24 hr 2023-08 00:00: 00 09-23 23:59 :00 No [id number] 1 capsule DAILY 1 capsule DAILY (route: oral) Med Classific ation: Central Nervous System Agents Vitamin D3 50 mcg (2,000 unit) capsule 2023-08 00:00: 00 09-23 23:59 :00 No [id number] 1 capsule EVERY AM 1 capsule EVERY AM (route: oral) Med Classific ation: Electroly te Balance-N utritiona l Products amlodipine 5 mg tablet 09-29 00:00: 00 Yes [id number] 1 tablet DAILY 1 tablet DAILY (route: oral) Med Classific ation: Cardiovas cular Therapy Agents atorvastati n 80 mg tablet 2- 00:00: 00 Yes [id number] 1 tablet BEDTIME 1 tablet BEDTIME (route: oral) Med Classific ation: Cardiovas cular Therapy Agents folic acid 1 mg tablet 2- 00:00: 00 Yes [id number] 1 tablet DAILY 1 tablet DAILY (route: oral) Med Classific ation: Electroly te Balance-N utritiona l Products furosemide 20 mg tablet 2- 00:00: 00 Yes [id number] 1 tablet DAILY 1 tablet DAILY (route: oral) Med Classific ation: Cardiovas cular Therapy Agents gabapentin 300 mg capsule 2- 00:00: 00 Yes [id number] 1 capsule 2 TIMES DAILY 1 capsule 2 TIMES DAILY (route: oral) Med Classific ation: Central Nervous System Agents gabapentin 300 mg capsule - 00:00: 00 Yes [id number] 2 capsule BEDTIME 2 capsule BEDTIME (route: oral) Med Classific ation: Central Nervous System Agents losartan 100 mg tablet 2- 00:00: 00 Yes [id number] 1 tablet DAILY 1 tablet DAILY (route: oral) Med Classific ation: Cardiovas cular Therapy Agents metformin 500 mg tablet 2- 00:00: 00 Yes [id number] 1 tablet EVERY AM 1 tablet EVERY AM (route: oral) Med Classific ation: Endocrine metoprolol tartrate 100 mg tablet 2- 00:00: 00 Yes [id number] 1 tablet 2 TIMES DAILY 1 tablet 2 TIMES DAILY (route: oral) Med Classific ation: Cardiovas cular Therapy Agents venlafaxine 75 mg tablet - 00:00: 00 Yes [id number] 1 tablet DAILY 1 tablet DAILY (route: oral) Med Classific ation: Central Nervous System Agents venlafaxine ER 150 mg tablet,exte nded release 24 hr 09-29 00:00: 00 Yes [id number] 1 tablet DAILY 1 tablet DAILY (route: oral) Med Classific ation: Central Nervous System Agents Vitamin D3 50 mcg (2,000 unit) capsule 2- 00:00: 00 Yes [id number] 1 capsule DAILY 1 capsule DAILY (route: oral) Med Classific ation: Electroly te Balance-N utritiona l Products zolpidem 10 mg tablet 2- 00:00: 00 Yes [id number] .5 tablet BEDTIME .5 tablet BEDTIME (route: oral) Med Classific ation: Central Nervous System Agents Abilify 15 mg tablet 2- 00:00: 00 Yes [id number] 1 tablet DAILY 1 tablet DAILY (route: oral) Med Classific ation: Central Nervous System Agents cetirizine 10 mg tablet 2- 00:00: 00 Yes [id number] 1 tablet DAILY 1 tablet DAILY (route: oral) Med Classific ation: Respirato ry Therapy Agents ropinirole 0.5 mg tablet 09-29 00:00: 00 Yes [id number] 1 tablet BEDTIME 1 tablet BEDTIME (route: oral) Med Classific ation: Central Nervous System Agents Senna Laxative 8.6 mg tablet - 00:00: 00 Yes [id number] 1 tablet BEDTIME 1 tablet BEDTIME (route: oral) Med Classific ation: Gastroint estinal Therapy Agents tramadol 50 mg tablet 09-29 00:00: 00 Yes [id number] 2 tablet EVERY 12 HOURS 2 tablet EVERY 12 HOURS (route: oral) Med Classific ation: Analgesic , Anti-infl ammatory or Antipyret ic buspirone 15 mg tablet 10-26 00:00: 00 Yes [id number] 1 tablet 3 TIMES DAILY 1 tablet 3 TIMES DAILY (route: oral) Med Classific ation: Central Nervous System Agents mirtazapine 7.5 mg tablet 10-26 00:00: 00 Yes [id number] 1 tablet BEDTIME 1 tablet BEDTIME (route: oral) Med Classific ation: Central Nervous System Agents risperidone 1 mg tablet 10-26 00:00: 00 Yes [id number] 1 tablet BEDTIME 1 tablet BEDTIME (route: oral) Med Classific ation: Central Nervous System Agents Vital Signs Vital Name Observation Time Observation Value Commen ts Temperature 2024-11-09 13:37:00.000 97.6 [degF] Temperature 2024-10-26 15:06:00.000 97.6 [degF] Temperature 2024-10-19 15:26:00.000 97.8 [degF] Temperature 2024-10-12 13:54:00.000 97.3 [degF] Temperature 2024-10-05 13:34:00.000 97.8 [degF] Temperature 2024-09-29 15:56:00.000 97 [degF] BMI (%) 2024-09-29 15:56:00.000 34 kg/m2 Height 2024-09-29 15:56:00.000 66 [in_us] Pulse 2024-11-09 13:37:00.000 115 /min Pulse 2024-11-02 13:14:00.000 114 /min Pulse 2024-10-26 15:06:00.000 111 /min Pulse 2024-10-19 15:26:00.000 86 /min Pulse 2024-10-12 13:54:00.000 78 /min Pulse 2024-10-05 13:34:00.000 81 /min Pulse 2024-09-29 15:56:00.000 96 /min O2 Saturation (%) 2024-11-02 13:18:00.000 97 % O2 Saturation (%) 2024-10-26 15:07:00.000 96 % O2 Saturation (%) 2024-10-19 15:27:00.000 97 % O2 Saturation (%) 2024-10-12 13:54:00.000 97 % Respirations 2024-11-09 13:37:00.000 16 /min Respirations 2024-11-02 13:14:00.000 16 /min Respirations 2024-10-26 15:06:00.000 16 /min Respirations 2024-10-19 15:26:00.000 16 /min Respirations 2024-10-12 13:54:00.000 16 /min Respirations 2024-10-05 13:34:00.000 16 /min Respirations 2024-09-29 15:56:00.000 18 /min Weight (lbs) 2024-09-29 15:56:00.000 214 [lb_av] Systolic Blood Pressure 2024-11-09 13:37:00.000 138 mm [Hg] Systolic Blood Pressure 2024-11-02 13:14:00.000 130 mm [Hg] Systolic Blood Pressure 2024-10-26 15:06:00.000 122 mm [Hg] Systolic Blood Pressure 2024-10-19 15:26:00.000 128 mm [Hg] Systolic Blood Pressure 2024-10-12 13:55:00.000 130 mm [Hg] Systolic Blood Pressure 2024-10-05 13:34:00.000 120 mm [Hg] Systolic Blood Pressure 2024-09-29 15:56:00.000 155 mm [Hg] Diastolic Blood Pressure 2024-11-09 13:37:00.000 88 mm [Hg] Diastolic Blood Pressure 2024-11-02 13:14:00.000 80 mm [Hg] Diastolic Blood Pressure 2024-10-26 15:06:00.000 80 mm [Hg] Diastolic Blood Pressure 2024-10-19 15:26:00.000 60 mm [Hg] Diastolic Blood Pressure 2024-10-12 13:55:00.000 70 mm [Hg] Diastolic Blood Pressure 2024-10-05 13:34:00.000 70 mm [Hg] Diastolic Blood Pressure 2024-09-29 15:56:00.000 89 mm [Hg] Plan of Treatment Planned Activity Planned Date Details Comments Future Scheduled Test SKILLED NU RSE TO EVALUATE PATIENT, IDENTIFY PRIMARY AND CO-MORBID CONDITIONS CODED PER CODING GUIDELINES, AND DEVELOP PATIENT SPECIFIC PLAN OF CARE THAT INCLUDES PATIENT GOAL FOR HOME HEALTH. [code = SKILLED NURSE TO EVALUATE PATIENT, IDENTIFY PRIMARY AND CO-MORBID CONDITIONS CODED PER CODING GUIDELINES, AND DEVELOP PATIENT SPECIFIC PLAN OF CARE THAT INCLUDES PATIENT GOAL FOR HOME HEALTH.] Future Scheduled Test SKILLED NU RSE WILL MAINTAIN SITUATIONAL AWARENESS FOR SAFETY AND WILL NOTIFY CLINICAL COUNTY TREASURER AND PHYSICIAN/PROVIDER WITH ANY CHANGE IN CONDITION. [code = SKILLED NURSE WILL MAINTAIN SITUATIONAL AWARENESS FOR SAFETY AND WILL NOTIFY CLINICAL COUNTY TREASURER AND PHYSICIAN/PROVIDER WITH ANY CHANGE IN CONDITION.] Future Scheduled Test SKILLED NU RSE TO ASSESS PATIENTS PSYCHOSOCIAL STATUS TO IDENTIFY POTENTIAL ISSUES THAT MAY COMPLICATE THE PROVISION OF THE PLAN OF CARE INCLUDING THE PATIENTS ABILITY TO ACCESS COMMUNITY RESOURCES AND PSYCHOSOCIAL SUPPORT SERVICES. [code = SKILLED NURSE TO ASSESS PATIENTS PSYCHOSOCIAL STATUS TO IDENTIFY POTENTIAL ISSUES THAT MAY COMPLICATE THE PROVISION OF THE PLAN OF CARE INCLUDING THE PATIENTS ABILITY TO ACCESS COMMUNITY RESOURCES AND PSYCHOSOCIAL SUPPORT SERVICES.] Future Scheduled Test SKILLED NU RSE FOR O/A AND TEACHING OF DIABETIC MANAGEMENT INCLUDING BLOOD SUGAR MONITORING/USE OF GLUCOMETER, DIABETIC DIET, LOWER EXTREMITY SKIN INSPECTION, PROPER SKIN/FOOT CARE, AND SIGNS AND SYMPTOMS HYPO/HYPERGLYCEMIA TO REPORT. [code = SKILLED NURSE FOR O/A AND TEACHING OF DIABETIC MANAGEMENT INCLUDING BLOOD SUGAR MONITORING/USE OF GLUCOMETER, DIABETIC DIET, LOWER EXTREMITY SKIN INSPECTION, PROPER SKIN/FOOT CARE, AND SIGNS AND SYMPTOMS HYPO/HYPERGLYCEMIA TO REPORT.] Future Scheduled Test SKILLED NU RSE FOR O/A AND TEACHING OF ENDOCRINE SYSTEM TO IDENTIFY CHANGES ASSOCIATED WITH EXACERBATION OF DIABETES FOR EARLY INTERVENTION OF COMPLICATIONS. [code = SKILLED NURSE FOR O/A AND TEACHING OF ENDOCRINE SYSTEM TO IDENTIFY CHANGES ASSOCIATED WITH EXACERBATION OF DIABETES FOR EARLY INTERVENTION OF COMPLICATIONS.] Future Scheduled Test SKILLED NU RSE TO PROVIDE TEACHING ON SIGNS AND SYMPTOMS AND MANAGEMENT OF HYPERTENSION. [code = SKILLED NURSE TO PROVIDE TEACHING ON SIGNS AND SYMPTOMS AND MANAGEMENT OF HYPERTENSION.] Future Scheduled Test SKILLED NU RSE FOR O/A AND SKILLED TEACHING OF COPING SKILLS TO MANAGE ANXIETY AND MAINTAIN SAFETY. [code = SKILLED NURSE FOR O/A AND SKILLED TEACHING OF COPING SKILLS TO MANAGE ANXIETY AND MAINTAIN SAFETY.] Future Scheduled Test SKILLED NU RSE FOR O/A AND SKILLED TEACHING RELATED TO MANAGEMENT OF DEPRESSIVE SYMPTOMS AND/OR DEPRESSION. SN TO REPORT SIGNIFICANT CHANGE IN DEPRESSIVE SYMPTOMS TO CLINICAL PROVIDER FOR EARLY INTERVENTION. [code = SKILLED NURSE FOR O/A AND SKILLED TEACHING RELATED TO MANAGEMENT OF DEPRESSIVE SYMPTOMS AND/OR DEPRESSION. SN TO REPORT SIGNIFICANT CHANGE IN DEPRESSIVE SYMPTOMS TO CLINICAL PROVIDER FOR EARLY INTERVENTION.] Future Scheduled Test SKILLED NU RSE TO O/A OF PATIENTS MENTAL/BEHAVIORAL STATUS, ASSESS VITAL SIGNS EACH VISIT ALLOW 2 PRNS FOR MEDICATION MANAGEMENT. [code = SKILLED NURSE TO O/A OF PATIENTS MENTAL/BEHAVIORAL STATUS, ASSESS VITAL SIGNS EACH VISIT ALLOW 2 PRNS FOR MEDICATION MANAGEMENT.] Future Scheduled Test SKILLED NU RSE FOR O/A OF GENERAL HEALTH STATUS OF PAIN, CARDIAC, RESPIRATORY, GASTROINTESTINAL, GENITOURINARY, SKIN, NEUROLOGIC, ENDOCRINE SYSTEMS TO IDENTIFY CHANGES ASSOCIATED WITH EXACERBATION FOR EARLY INTERVENTION OF COMPLICATIONS EACH VISIT [code = SKILLED NURSE FOR O/A OF GENERAL HEALTH STATUS OF PAIN, CARDIAC, RESPIRATORY, GASTROINTESTINAL, GENITOURINARY, SKIN, NEUROLOGIC, ENDOCRINE SYSTEMS TO IDENTIFY CHANGES ASSOCIATED WITH EXACERBATION FOR EARLY INTERVENTION OF COMPLICATIONS EACH VISIT ] Goal Patient Goal - NO HOSPITALIZ ATION Goal Provider Goal - A PLAN OF CARE WILL BE ESTABLISHED THAT MEETS PATIENT'S CARE HOME NEEDS AND INCLUDES PATIENT GOAL FOR HOME HEALTH. Goal Provider Goal - PATIENT WILL REMAIN SAFE IN THE COMMUNITY AND WILL BE FREE OF DANGER TO SELF AND OTHERS THROUGHOUT THE CERTIFICATION PERIOD. Goal Provider Goal - PSYCHOSOCIAL NEEDS WILL BE IDENTIFIED AND PLAN IMPLEMENTED TO MINIMIZE RISK THROUGHOUT CERTIFICATION PERIOD. Goal Provider Goal - PATIENT/CAREGIVER WILL VERBALIZE/DEMONSTRATE KNOWLEDGE OF DIABETIC MANAGEMENT. CHANGES IN DIABETIC STATUS WILL BE IDENTIFIED AND REPORTED TO PHYSICIAN FOR PROMPT INTERVENTION THROUGHOUT THE CERTIFICATION PERIOD. Goal Provider Goal - PATIENT/CAREGIVER WILL VERBALIZE SIGNS AND SYMPTOMS OF EXACERBATION OF DIABETES TO REPORT TO NURSE/PHYSICIAN THROUGHOUT THE CERTIFICATION PERIOD. Goal Provider Goal - PATIENT/CAREGIVER WILL VERBALIZE SIGNS AND SYMPTOMS OF HYPERTENSION AND WILL BE ABLE TO DEMONSTRATE ABILITY TO MANAGE EXACERBATION BY END OF THE EPISODE. Goal Provider Goal - PATIENT WILL BE ABLE TO PERFORM DAILY FUNCTIONS AND HAVE OPTIMAL IMPROVEMENT IN LEVEL OF ANXIETY THROUGHOUT CERTIFICATION PERIOD. Goal Provider Goal - PATIENT WILL REMAIN SAFE WITHOUT DECOMPENSATION IN DEPRESSIVE CONDITION, WHILE MAINTAINING OPTIMAL LEVEL OF MENTAL HEALTH AND WELL BEING THROUGHOUT CERTIFICATION PERIOD. Goal Provider Goal - ALTERED MENTAL/BEHAVIORAL STATUS WILL BE IDENTIFIED PROMPTLY AND INTERVENTION INITIATED QUICKLY TO MINIMIZE ASSOCIATED RISKS THROUGHOUT CERTIFICATION PERIOD. Goal Provider Goal - CHANGE IN GENERAL HEALTH STATUS WILL BE IDENTIFIED AND REPORTED TO PHYSICIAN FOR PROMPT INTERVENTION TO MINIMIZE ASSOCIATED RISKS THROUGHOUT CERTIFICATION PERIOD. Progress Notes Progress Notes <paragraph>[Visit Date: 2024 by RAFI CADE RN]:</paragraph><paragraph>11-09-24 CARE HOME VISIT MADE TO ASSESS MENTAL HEALTH STATUS SAFETY MEDICATION COMPLIANCE CARDIAC STATUS PAIN MANAGEMENT. PATIENT COMPLIANT TAKING MEDICATIONS FROM BUBBLE PACK SETUP BY PHARMACY. 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 PATIENT DENIES CHEST PAIN OR SHORTNESS OF BREATH. RN REVIEWED WHEN TO CALL 911 FOR CARDIAC EMERGENCY. PATIENT HAS A NEW GLUCOMETER AT THE PHARMACY WHICH WILL NEED TO SUPERVISOR HEADING THE COST IS $20 IT IS NOT COVERED BY INSURANCE. PATIENT IS SCHEDULED TO HAVE A SLEEP STUDY NEXT WEEK ... DIFFICULT SLEEPING 11/15 NEUROLOGIST APPOINTMENT. CARDIOLOGY VALENCIA</paragraph> Encounters Start Date/Time End Date/Time Encounter Type Admission Type Attending Clinicians Care Facility Care Department Encounter ID Discharge Date Discharge Status Discharge Condition Discharge Reason Percent Goals Met 2024-09-29 00:00:00 2024-11-27 00:00:00 Outpatient [facility] [id number] 14.8 1
--- OUTSIDE RECORDS SUMMARY | 2024-11-15 15:12 | XMS_ITS | Encounter Summary ---
Author Organization [employer] [facility] Address [address] [place] [address] [address] [place] [address] Care Team Providers Care Automatic Screwmaker Name Role Phone Jada Erickson PLANER STONE Primary Care Provider [phone] Shanda Rg NP Primary Care Provider [phone] Jas Cordero PLANER STONE Unavailable Unavailable Reason for Visit * Reason Comments Med Refill Encounter Details Date Type Department Care Team (Late st Contact Info) Description 05/30/2023 Refill [facility] [address] [place] [address] Jada Erickson FNP [address] [place] [address] Dept [place] [address] Pain; Cervical radiculopathy; Lumbar radiculopathy Social History Tobacco Use Types Packs/Day Years Used Date Smoking Tobacco: Former Cigarettes Q uit: 10/02/2002 Passive Smoke Exposure: Past Smokeless Tobacco: Never Alcohol Use Standard Drinks/Week Comments Not Currently 0 (1 standard drink = 0.6 oz pur e alcohol) Depression Answer Date Recorded Patient Health Questionnaire-9 Score 10 06/01/2023 Depression Answer Date Recorded Patient Health Questionnaire-2 Score 4 06/01/2023 Sex and Gender Information Value Date Recorded Sex Assigned at Male 06/27/2022 10:29 AM EDT Legal Sex Male 10:29 AM EDT Gender Identity Male 06/27/2022 10:29 AM EDT Sexual Orientation Straight 06/27/2022 10 :29 AM EDT documented as of this encounter Plan of Treatment Upcoming Encounters Date Type Department Care Team (Late st Contact Info) Description 01/01/2025 9:30 AM EDT Office Visit [facility] [address] [place] [address] Shanda Rg NP [address] [place] [address] 01/30/2025 1:00 PM EDT Clinical Support [facility] [address] [place] [address] Cait Velazquez RN documented as of this encounter Visit Diagnoses Diagnosis Pain Generalized pain Cervical radiculopathy Brachial neuritis or radiculitis nos Lumbar radiculopathy Thoracic or lumbosacral neuritis or radiculitis, unspecified documented in this encounter Additional Health Concerns Assessment Noted Time PHQ-9 Depression Total Score: 0 04/13/20 9:39 AM EDT documented as of this encounter Care Teams Automatic Screwmaker Relationship Specialty Start Date End Date Jada Erickson FNP PCP - General Family Medicine 10/27/22 06/05/23 [place] [address] PCP - General Family Medicine 06/06/23 Jas Cordero FNP [address] [place] [id number] Nurse Practitioner Family Medicine 07/24/23 Aixa Ng Java Flex DeveloperSocial Work Instructor 09/11/23 documented as of this encounter
--- OUTSIDE RECORDS SUMMARY | 2024-11-15 15:12 | XMS_ITS | Encounter Summary ---
Author Organization [email or web address] Address [address] [place] [address] [address] [place] [address] Care Team Providers Care Auto Locator Name Role Phone Shanda Rg NP Primary Care Provider [phone] Jas Cordero Unavailable Unavailable Reason for Visit * Reason Onset Date Comments Med Refill 02/15/2024 Encounter Details Date Type Department Care Team (Late st Contact Info) Description 02/15/2024 Telephone [facility] [address] [place] [address] Shanda Rg NP [address] [place], [place] [phone] Med Refill Social History Tobacco Use Types Packs/Day Years [...] encounter Miscellaneous Notes * Telephone Encounter - Michela Madrid LPN - 02/15/2024 10:43 AM EDT Medication was sent to [facility] on 01/30/24 #30 with 5 refills. * Telephone Encounter - Susan Mendoza - 02/15/2024 10:39 AM EDT TC from pt requesting medication refill. Medications needing refill : zolpidem (Ambien) 10 MG tablet To be sent to: [facility] - [place], [place] - [address] [place] [address] documented in this encounter Plan of Treatment Upcoming Encounters Date Type Department Care Team (Late st Contact Info) Description 01/01/2025 9:30 AM EDT Office Visit [facility] [address] [place] [phone] Shanda Rg NP [address] [place] [address] 01/30/2025 1:00 PM EDT Clinical Support [facility] [address] [place] [address] Cait Velazquez, RN documented as of this encounter Visit Diagnoses Not on filedocumented in this encounter Additional Health Concerns Assessment Noted Time PHQ-9 Depression Total Score: 9 01/30/20 24 9:09 AM EDT documented as of this encounter Care Teams Auto Locator Relationship Specialty Start Date End Date Shanda Rg NP [address] [place] [address] PCP - General Family Medicine 06/06/23 Jas Cordero FNP [address] [place] [address] Nurse Practitioner Family Medicine 07/24/23 Aixa Ng Customer EngineerFingernail Former 09/11/23 documented as of this encounter
--- OUTSIDE RECORDS SUMMARY | 2024-11-15 15:12 | XMS_ITS | Encounter Summary ---
Author Organization [employer] Address [address] [place] [address] [address] [place] [address] Care Team Providers Care Textile Bag Sewer Name Role Phone Shanda Rg NP Primary Care Provider [phone] Jas Cordero Unavailable Unavailable Encounter Details Date Type Department Care Team ([facility] st Contact Info) Description 07/12/2024 Telephone [facility] [address] [place], [place] [phone] Shanda Rg NP [address] [place] [address] Social History Tobacco Use Types Packs/Day Years [...] Description 01/01/2025 9:30 AM EDT Office Visit [facility] [address] [place] [phone] Shanda Rg NP [address] [place] [address] 01/30/2025 1:00 PM EDT Clinical Support [address] [address] Cait Velazquez, LUCY documented as of this encounter Visit Diagnoses Not on filedocumented in this encounter Additional Health Concerns Assessment Noted Time PHQ-9 Depression Total Score: 9 01/30/20 24 9:09 AM EDT documented as of this encounter Care Teams Textile Bag Sewer Relationship Specialty Start Date End Date Shanda Rg NP [address] [place] [phone] PCP - General Family Medicine 06/06/23 Jas Cordero FNP [address] [place] [phone] Nurse Practitioner Family Medicine 07/24/23 Aixa Ng Supervisor ProductionBrand Executive 09/11/23 documented as of this encounter
--- OUTSIDE RECORDS SUMMARY | 2024-11-15 15:12 | XMS_ITS | Encounter Summary ---
Author Organization [employer] [facility] Address [address] [place] [address] 7t [place] [address] Care Team Providers Care Solutions Executive Cloud Sales Name Role Phone Jada Erickson SYRUP MAKER Primary Care Provider [phone] Shanda Rg NP Primary Care Provider [phone] Jas Cordero SYRUP MAKER Unavailable Unavailable Reason for Visit * Reason Comments Med Refill Encounter Details Date Type Department Care Team (Late st Contact Info) Description 05/30/2023 Refill [facility] [address] [place] [address] Jada Erickson FNP [address] [place] [address] Dept [place] [address] Pain; Cervical radiculopathy; Lumbar radiculopathy Social History [...] Description 01/01/2025 9:30 AM EDT Office Visit [facility] [address] [place] [address] Shanda Rg NP [address] [place] [address] 01/30/2025 1:00 PM EDT Clinical Support [facility] [address] [place] [address] Cait Velazquez RN documented as of this encounter Visit Diagnoses Diagnosis Pain Generalized pain Cervical radiculopathy Brachial neuritis or radiculitis nos Lumbar radiculopathy Thoracic or lumbosacral neuritis or radiculitis, unspecified documented in this encounter Additional Health Concerns Assessment Noted Time PHQ-9 Depression Total Score: 0 04/13/20 9:39 AM EDT documented as of this encounter Care Teams Solutions Executive Cloud Sales Relationship Specialty Start Date End Date Jada Erickson FNP PCP - General Family Medicine 10/27/22 06/05/23 [place] [address] PCP - General Family Medicine 06/06/23 Jas Cordero FNP [address] [place] [address] Nurse Practitioner Family Medicine 07/24/23 Aixa Ng Director Of Supply ChainHostess Party Sales Representative 09/11/23 documented as of this encounter
--- OUTSIDE RECORDS SUMMARY | 2024-11-15 15:12 | XMS_ITS | Encounter Summary ---
Author Organization [employer] [facility] Address [address] [place] [address] 7 [place] [address] Care Team Providers Care Press Hand Name Role Phone Carmen Faust MD Primary Care Provider Cali Lundberg Primary Care Provider Jada GomezP Primary Care Provider [phone] Shanda Rg NP Primary Care Provider [phone] Jas Cordero Unavailable Unavailable Reason for Visit * Reason Comments Med Refill Encounter Details Date Type Department Care Team ([facility] Contact Info) Description 09/01/2022 Refill [facility] MEDICINE [address] [place] [address] Jas Cordero FNP Social History Tobacco Use Types Packs/Day Years [...] suspected to have Coronavirus/COVID-19? No / Unsure 09/02/2022 1:17 PM EST documented as of this encounter Plan of Treatment Upcoming Encounters Date Type Department Care Team (Late Contact Info) Description 01/01/2025 9:30 AM EDT Office Visit [facility] MEDICINE [address] [place] [address] Shanda Rg NP [address] [place] [address] 01/30/2025 1:00 PM EDT Clinical Support [facility] [address] [place] [address] Cait Velazquez, RN documented as of this encounter Visit Diagnoses Not on filedocumented in this encounter Additional Health Concerns Assessment Noted Time PHQ-9 Depression Total Score: 12 022 9:34 AM EST documented as of this encounter Care Teams Press Hand Relationship Specialty Start Date End Date Carmen Faust MD PCP - General Family Medicine 02/17/20 09/20/22 Cali Steward FNP PCP - General Family Medicine 09/21/22 10/26/22 Jada Erickson FNP PCP - General Family Medicine 10/27/22 06/05/23 Shanda Rg NP [address] [place] [address] PCP - General Family Medicine 06/06/23 Jas Cordero FNP [address] [place] [address] Nurse Practitioner Family Medicine 07/24/23 Aixa Ng Computer Operations SpecialistChief Accounting Officer 09/11/23 documented as of this encounter
--- OUTSIDE RECORDS SUMMARY | 2024-11-15 15:12 | XMS_ITS | Encounter Summary ---
Author Organization [employer] Address [address] [place] [address] 7 [place] [address] Care Team Providers Care Sample Washer Name Role Phone Shanda Rg NP Primary Care Provider [phone] Jas Cordero Unavailable Unavailable Reason for Visit * Reason Onset Date Comments Med Refill 10/29/2024 Encounter Details Date Type Department Care Team (Late st Contact Info) Description 10/29/2024 Refill [facility] [address] [place] [address] Shanda Rg NP [address] [place] [address] Type 2 diabetes mellitus without complication, unspecified whether lobsterman insulin use ([facility]) Social History Tobacco Use Types Packs/Day Years [...] Telephone Encounter - Michela Madrid LPN - 10/29/2024 1:17 PM EST Last seen 09/04/24. * Telephone Encounter - Lincoln Blount - 10/29/2024 1:08 PM EST TC from pt requesting medication refill. Medications needing refill : TRUE[facility] Lancets [facility] glucose blood (FREESTYLE LITE) test strip To be sent to: [facility] - [place], [place] - [address] [facility] documented in this encounter Plan of Treatment Upcoming Encounters Date Type Department Care Team (Late st Contact Info) Description 01/01/2025 9:30 AM EDT Office Visit [facility] [address] [place] [address] Shanda Rg NP [address] [place] [address] 01/30/2025 1:00 PM EDT Clinical Support [facility] [address] [place] [address] Cait Velazquez, RN documented as of this encounter Visit Diagnoses Diagnosis Type 2 diabetes mellitus without complication, unspecified whether half-way insulin use ([facility]) documented in this encounter Additional Health Concerns Assessment Noted Time PHQ-9 Depression Total Score: 23 025 2:34 PM EST documented as of this encounter Care Teams Sample Washer Relationship Specialty Start Date End Date Shanda Rg NP [address] [place] [address] PCP - General Family Medicine 06/06/23 Jas Cordero FNP [address] [place] [address] Nurse Practitioner Family Medicine 07/24/23 Aixa Ng Ham CurerTank Systems Maintainer 09/11/23 documented as of this encounter
--- OUTSIDE RECORDS SUMMARY | 2024-11-15 15:12 | XMS_ITS | Encounter Summary ---
Author Organization [employer] [facility] Address [address] [place] [address] 7t [place] [address] Care Team Providers Care Retail Salesworker Name Role Phone Carmen Faust MD Primary Care Provider Cali Lundberg JUNK DEALER Primary Care Provider Jada Gomez JUNK DEALER Primary Care Provider [phone] Shanda Rg NP Primary Care Provider [phone] Jas Cordero JUNK DEALER Unavailable Unavailable Encounter Details Date Type Department Care Team (Latest Contact Info) Description 07/15/2019 Abstract [facility] CONVERSIONS Dental, Provider, DDS Social History Tobacco Use Types Packs/Day Years [...] Description 01/01/2025 9:30 AM EDT Office Visit [facility] MEDICINE [address] [place] [address] Shanda Rg NP [address] [place] [address] 01/30/2025 1:00 PM EDT Clinical Support [facility] MED[facility]INE [address] [place] [address] Caroline, Cait, RN documented as of this encounter Visit Diagnoses Not on filedocumented in this encounter Care Teams Retail Salesworker Relationship Specialty Start Date End Date Carmen Faust MD PCP - General Family Medicine 02/17/20 09/20/22 Cali Steward FNP PCP - General Family Medicine 09/21/22 10/26/22 Jada Erickson FNP PCP - General Family Medicine 10/27/22 06/05/23 Shanda Rg NP [address] [place], [place] [phone] PCP - General Family Medicine 06/06/23 Jas Cordero FNP [address] [place] [address] Nurse Practitioner Family Medicine 07/24/23 Aixa Ng Band AttacherBusiness Process Expert 09/11/23 documented as of this encounter
--- OUTSIDE RECORDS SUMMARY | 2024-11-15 15:12 | XMS_ITS | Encounter Summary ---
Author Organization [employer] Address [address] [place] [address] 7t [place] [address] Care Team Providers Care Dispensing Operator Name Role Phone Shanda Rg NP Primary Care Provider [phone] Jas Cordero Unavailable Unavailable Encounter Details Date Type Department Care Team ([facility] st Contact Info) Description 10/22/[address] [facility] MEDICINE [address] [place], [place] [phone] Shanda Rg NP [address] [place] [address] Social History Tobacco Use Types Packs/Day Years [...] Description 01/01/2025 9:30 AM EDT Office Visit [address] [address] Shanda Rg NP [address] [place] [address] 01/30/2025 1:00 PM EDT Clinical Support [address] [address] Cait Velazquez RN documented as of this encounter Visit Diagnoses Not on filedocumented in this encounter Additional Health Concerns Assessment Noted Time PHQ-9 Depression Total Score: 23 025 2:34 PM EST documented as of this encounter Care Teams Dispensing Operator Relationship Specialty Start Date End Date Shanda Rg NP [address] [place] [address] PCP - General Family Medicine 06/06/23 Jas Cordero FNP [address] [place] [address] Nurse Practitioner Family Medicine 07/24/23 Aixa Ng Pen TesterDoorperson Or Luggage Porter 09/11/23 documented as of this encounter
--- OUTSIDE RECORDS SUMMARY | 2024-11-15 15:12 | XMS_ITS | Encounter Summary ---
Author Organization [employer] Address [address] [facility] 7t [place] [address] Care Team Providers Care Route Process Administrator Name Role Phone Shanda Rg NP Primary Care Provider [phone] Jas Cordero Unavailable Unavailable Encounter Details Date Type Department Care Team ([facility] st Contact Info) Description 11/08/2024 Population Health Risk Score [facility] (C3) Department [address] [facility] [address] [place] [address] Provider, Population Health Generic Social History Tobacco Use Types Packs/Day Years [...] Description 01/01/2025 9:30 AM EDT Office Visit [address] [address] Shanda Rg NP [address] [place] [address] 01/30/2025 1:00 PM EDT Clinical Support [address] [address] Cait Velazquez RN documented as of this encounter Visit Diagnoses Not on filedocumented in this encounter Additional Health Concerns Assessment Noted Time PHQ-9 Depression Total Score: 23 025 2:34 PM EST documented as of this encounter Care Teams Route Process Administrator Relationship Specialty Start Date End Date Shanda Rg NP [address] [place] [address] PCP - General Family Medicine 06/06/23 Jas Cordero FNP [address] [place] [address] Nurse Practitioner Family Medicine 07/24/23 Aixa Ng Hotel MaidTape Sewer 09/11/23 documented as of this encounter
--- OUTSIDE RECORDS SUMMARY | 2024-11-15 15:12 | XMS_ITS | Encounter Summary ---
Author Organization [employer] Address [address] [place] [address] 7 [place] [address] Care Team Providers Care Complaint Supervisor Name Role Phone Shanda gR NP Primary Care Provider [phone] Jas Cordero Unavailable Unavailable Reason for Visit * Reason Onset Date Comments Durable Medical Equipment 10/29/2024 Encounter Details Date Type Department Care Team (Late st Contact Info) Description 10/29/2024 Refill [facility] [address] [place] [address] Shanda Rg NP [address] [place] [address] Type 2 diabetes mellitus without complication, unspecified whether remote computer terminal operator insulin use ([facility]) (Primary Dx) Social History Tobacco Use Types [...] encounter Miscellaneous Notes * Telephone Encounter - Rosemarie Mcgrath RN - 10/29/2024 3:23 PM EST TC placed to pharmacy to determine glucometer. Pharmacy staff states the last fill they have on glucometer was the freestyle lite test strips in 2022. TC placed to [facility] visiting nurse. [facility]ee states the pt uses the Freestyle Lite and is broken so pt has not been getting his readings. Freestyle Lite glucometer kit and alcohol swabs pended to PCP for review. * Telephone Encounter - Lincoln Blount - 10/29/2024 1:02 PM EST Tc from [facility] Visiting Nurse requesting a new Glucometer and Alcohol Swaps. documented in this encounter Plan of Treatment Upcoming Encounters Date Type Department Care Team (Late st Contact Info) Description 01/01/2025 9:30 AM EDT Office Visit [facility] [address] [place] [address] Shanda Rg NP [address] [place] [address] 01/30/2025 1:00 PM EDT Clinical Support [facility] [address] [place] [address] Cait Velazquez, LUCY documented as of this encounter Visit Diagnoses Diagnosis Type 2 diabetes mellitus without complication, unspecified whether remote computer terminal operator insulin use ([facility])- Primary documented in this encounter Additional Health Concerns Assessment Noted Time PHQ-9 Depression Total Score: 23 025 2:34 PM EST documented as of this encounter Care Teams Complaint Supervisor Relationship Specialty Start Date End Date Shanda Rg NP [address] [place] [address] PCP - General Family Medicine 06/06/23 Jas Cordero FNP [address] [place] [address] Nurse Practitioner Family Medicine 07/24/23 Aixa Ng Potable Water Treatment OperatorThreading Machine Feeder Automatic 09/11/23 documented as of this encounter
--- OUTSIDE RECORDS SUMMARY | 2024-11-15 15:12 | XMS_ITS | Clinical Summary ---
Author Organization [facility] Address [address] [place] [address] Care Team Providers Care Workplace Relations Adviser Name Role Phone Unavailable Primary Care Provider Unavailabl e Source Comments PLEASE NOTE, if this patient is a minor, it may be UNLAWFUL to discuss sensitive information that is contained in these records (such as FAMILY PLANNING, MENTAL HEALTH or SUBSTANCE ABUSE) with the minor patient's parent or other person without the patient's specific authorization.[facility] Allergies No known active allergies Medications rOPINIRole (REQUIP) 0.5 mg tabletIndicatio ns:Periodic limb movement disorder Take 1 mg by mouth 2 (two) times daily 3 Active losartan (COZAAR) 100 mg tablet Take 1 Tablet by mouth once daily 4 Active amLODIPine (NORVASC) 5 mg tablet Take 5 mg by mouth every morning 4 Active atorvastatin (LIPITOR) 80 mg tablet Take 80 mg by mouth nightly at bedtime Active metFORMIN (GLUCOPHAGE) 500 mg tablet Take 500 mg by mouth once daily with breakfast 4 Active cetirizine (ZYRTEC) 10 mg tablet Take 10 mg by mouth Daily 4 Active gabapentin (NEURONTIN) 300 mg capsule Take 300 mg by mouth 4 Active venlafaxine XR (EFFEXOR XR) 75 mg 24 hr capsuleIndicati ons:Major depressive disorder with psychotic features (HCC-CMS) Take 1 Capsule by mouth once daily with breakfast 90 Capsule 4 Active venlafaxine XR (EFFEXOR XR) 150 mg 24 hr capsuleIndicati ons:Major depressive disorder with psychotic features (HCC-CMS) Take 1 Capsule by mouth once daily with breakfast 90 Capsule 4 Active mirtazapine (REMERON) 15 mg tablet Take 0.5 Tablets by mouth nightly at bedtime 45 Tablet 4 Active eszopiclone (LUNESTA) 3 mg tab Take 1 Tablet by mouth nightly at bedtime STOP AMBIEN 30 Tablet 2 4 Active busPIRone (BUSPAR) 30 mg tablet Take 1 Tablet by mouth 3 (three) times a day 270 Tablet 4 Active ARIPiprazole (ABILIFY) 20 mg tabletIndicatio ns:Major depressive disorder with psychotic features (HCC-CMS) Take 1 Tablet by mouth every morning New directions 90 Tablet 4 Active Active Problems Problem Noted Date Diagnosed Date Gastroesophageal reflux disease without esophagi tis 03/12/2024 Overview (05/09/2024): Last Assessment & Plan: Reviewed low acid diet, small frequent meals/snacks. Trial famotidine, Follow up in 4-6 weeks Class 1 obesity due to exces s calories without serious comorbidity with body mass index (BMI) of 33.0 to 33.9 in adult 02/06/2024 Overview (05/09/2024): Last Assessment & Plan: -Healthy diet and exercise teaching completed: Eat [...] of moderate intensity exercise weekly -lipids ordered Right shoulder pain 02/06/2024 Overview (05/09/2024): Last Assessment & Plan: -question adhesive capsulitis r/t diabetes or rotator cuff tear -will refer to ortho for further evaluation given degree of ROM limitation -last MRI completed in 2002 Insomnia 05/13/2023 Overview (05/09/2024): Care managed by Psych provider Uses CPAP at night. Goes to bed 11 pm-4 AM. F/u Sleep medicine in May. Treats with Ambien. Reports dose was decreased to 5 mg, and he has been taking 2 tablets. Psych decreased dose to 5mg. When he takes only 5 mg, he only sleeps 2 hours Last Assessment & Plan: Discussed with pt He agreed to notify Psych provider Shantell gordon that Ambien dose 5 mg is not functioning Notify clinic if he is unable to contact psych provider F/u PRN Assessment & Plan (07/09/2024 3:55 PM EST): Sleep improved with lunesta. Sleeping 7 hrs nightly. Using c-pap nightly. OFF ambien, hydroxyzine, trazodone. Dyspnea on exertion 03/12/2023 Overview (05/09/2024): Cardiology 11/24/22: Abnormal chest xray. CT lung w/o contrast. Diet and exercise program for weight loss, conditioning, and reduction of CV risk 01/24/23: appt Cardiology f/u 1 year 03/01/23: CT lung showed no pulmonary or mediastinal abnormality; incidental finding fatty liver. F/u PRN Seasonal allergic rhinitis 12/18/2022 Overview (05/09/2024): Sx of allergic rhinitis Will Rx cetirizine Followup 3 months or sooner PRN Lumbar radiculopathy 09/21/2022 Overview (05/09/2024): -Continues with PT, only noticing mild improvement -Failed OTC analgesics -Evaluated by pain management , underwent epidural injections with no relief, declines interest in returning at this time -Continues with tizanidine and tramadol, and gabapentin RMV katherine completed and using MRI lumbar spine May 2022 that showed slight lumbar dextrocurvature with trace [id number] lateral lithesis at L4-L5. Trace anterolithesis at L4-L5 with concentric disc bulging w/o sig canal or neural foraminal stenosis. Mild annular bulging L1-L2 and L3-L4, formaminal disc protrusion right L2-L3 Last Assessment & Plan: Pt has chronic back pain related to bulging discs and chronic back changes. Pain affecting gait and ambulation Discussed RMV handicap placard with pt, he will bring necessary paperwork [...] months or sooner PRN with new PCP Cervical radiculopathy 09/21/2022 Overview (05/09/2024): Xray Cervical spine 11/25/22 Cervical spondylosis at the C6-C7 level: There is narrowing of the C6-C7 disc space with some mild spurring being present. There is mild anterior neural foraminal encroachment bilaterally at the C6-C7 disc space level related to spurring of the joints of [place]. Cause of cervical radiculopathy and numbness in hands/arms Numbness may also be related to diabetic neuropathy Last Assessment & Plan: Pt has chronic back pain related to [...] months or sooner PRN with new PCP Major depressive disorder with psychotic feature s ([facility]) 08/16/2022 Overview (05/09/2024): Last Assessment & Plan: Again doing well. Continue current medications: Risperidone [...] retiring patient will be transferred to new [facility] Psychiatric Prescriber. Pt is aware that those appointments will be via televisit, and that the provider is not an [facility] employee. He gives verbal consent to share protected health information. I have wished him well. He agrees with the plan. Assessment & Plan (07/09/2024 3:57 PM EST): A: insomnia improving. mood stable but some worry re recent issue with mother. P: OFF ambien, Hydroxyzine 25 mg po qhs, per pt preference, polypharm. Cont Abilify 20 mg po qam, buspar 30 mg po tid, effexor 225 mg po qam. Continue lunesta 3 mg po qhs sleep. Continue to use C-pap for sleep apnea. Cont therapy. Assessment & Plan (06/25/2024 12:44 PM EDT): A: insomnia, depressed mood, anxiety. P: DC ambien 5 mg qhs. OFF Hydroxyzine 25 mg po qhs, per pt preference, polypharm. Cont Abilify 20 mg po qd, buspar 30 mg po tid, effexor 225 mg po qam. Trial lunesta 3 mg po qhs sleep. Continue to use C-pap for sleep apnea. Cont therapy. Assessment & Plan (06/04/2024 5:18 PM EDT): Cont ambien 5 mg qhs. DC Hydroxyzine 25 mg po qhs, per pt preference, polypharm. Abilify 20 mg po qd, buspar 30 mg po tid, effexor 225 mg po qam Continue to use C-pap for sleep apnea. Cont therapy. Assessment & Plan (05/14/2024 8:38 AM EDT): Pt requests med adjustment, would like to take fewer rxs. Reports feeling somewhat better, improvement in sleep. PLAN- DC risperdal [on two antipsychotics], continue remeron 7.5 mg qhs sleep, appetite. Tried to stop ambien 10 mg qhs but cannot sleep without it. Recommend trying 5 mg qhs. Hydroxyzine 25 mg po qhs prn only for sleep. Abilify 20 mg po qd, buspar 30 mg po tid, effexor 225 mg po qam Continue to use C-pap for sleep apnea. Assessment & Plan (05/09/2024 9:44 AM EDT): Pt requests med adjustment, would like to take fewer rxs. Reports not doing well. PLAN- HOLD risperdal [on two antipsychotics], TRIAL remeron 7.5 mg qhs sleep, appetite. Continue other meds for now. Periodic limb movement disorder 08/04/2022 Pain in right knee 2017 Type 2 diabetes mellitus without complication ([facility]) 12/16/2016 Overview (05/09/2024): Education provided re: therapeutic lifestyle changes. Encouraged [...] mg daily Statin: Atorvastatin 40 mg daily Last Assessment & Plan: At goal today, compliant with medications, pt endorses less appetite, but no constitutional symptoms and is concurrent with travelling as she usually cooks, monitor Dizziness and giddiness 10/28/2016 Osteochondroma of bone 08/30/2016 Hypertensive disorder 01/01/2016 Overview (05/09/2024): Losartan 100 mg daily Amlodipine 5 mg daily Last Assessment & Plan: -BP above target goal of <130/80 mmHg -continue amlodipine, metoprolol, and losartan as ordered -microalbumin: ordered today -ASCVD risk: to be calculated pending lipid results today -daily BP monitoring advised -low salt diet and 30 min moderate intensity daily exercise recommended -Reviewed ED precautions to include chest pain, shortness of breath, severe headache, sudden vision changes or BP ?180/?120 mmHg. -Call clinic if three or more BP readings >140/90. -follow-up 3 months Psoriasis 01/01/2016 Overview (05/09/2024): Receives injections for psoriasis New onset hand joint pain/stiffness x 5 months. Last Assessment & Plan: Care managed by Dr. Malone. Injection treated psoriasis Worsening hand joint pain. 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 Social History Tobacco Use Types Packs/Day Years Used Date Smoking Tobacco: Never Assessed Social Connections Answer Date Recorded Connectedness 0 05/09/2024 Financial Resource Strain Answer Date R ecorded Financial Resource Strain 0 2023 Stress Answer Date Recorded Stress 0 04/08/2024 Physical Activity Answer Date Recorded Physical Activity 0 04/08/2024 Food Insecurity Answer Date Recorded Food 0 05/23/2024 Transportation Needs Answer Date Record ed Transportation 0 04/08/2024 Housing Stability Answer Date Recorded Housing 0 04/08/2024 Safety and Environment Answer Date Estuardo rded Safety 0 04/08/2024 Utilities Answer Date Recorded Utilities 0 04/08/2024 Employment Answer Date Recorded Stress 0 05/09/2024 Sex and Gender Information Value Date Recorded Sex Assigned at Not on file Legal Sex Male 8:45 PM PST Gender Identity Not on file Sexual Orientation Not on file Last Filed Vital Signs Vital Sign Reading Time Taken Comments Blood Pressure 105/50 08/14/2017 7:55 AM PST Pulse 62 08/14/2017 7:55 AM PST Temperature 36.3 ??C (97.3 ??F) 08/14/2017 7:55 AM PS T Respiratory Rate - - Oxygen Saturation - - Inhaled Oxygen Concentration - - Weight 73.8 kg (162 lb 9.6 oz) 08/14/2017 7:55 A M PST Height 165.1 cm (5' 5 ) 08/14/2017 7:55 AM PST Body Mass Index 27.06 08/14/2017 7:55 AM PST Plan of Treatment Health Maintenance Due Date Last Done Comments Depression Monitoring 1965 Diabetes Foot Exam 1965 Diabetes Microalbumin (w/Creatinine) 1965 Serum Creatinine 1965 Tobacco Screening [address] Colonography 2010 Colonoscopy 2010 Colorectal Cancer Screening 2010 FIT/gFOBT 2010 Fecal DNA 2010 Flexible Sigmoidoscopy 2010 Imm-Hepatitis B (2 of 3 - 19 + 3-dose series) 05/11/2023 04/13/2023 [id number] ( season) 2024 09/02/2022, 2021, 12/07/2020, Additional history exists Imm-Influenza (#1) 2024 07/10/2020, 0 05/16/2018, 05/19/2016 Diabetes HbA1c 05/05/2024 11/03/2023, 03/28, 06/08/2022, Additional history exists Alcohol and Drug Screen 08/28/2024 Lipid Screening 11/08/2024 11/09/2023 Imm-DTaP/Tdap/Td (2 - Td or Tdap) 07/03/2029 019 Imm-Zoster, Recombinant Completed 09/23/2020, 07/10 Imm-Pneumococcal Completed 04/13/2023, 08/2021, 07/03/2019 HIV Screening Completed 11/09/2023, 11/09/2023 Hepatitis C Screening Completed 11/09/2023 Insurance [place] MEDICAID [facility]
--- OUTSIDE RECORDS SUMMARY | 2024-11-15 15:12 | XMS_ITS | Encounter Summary ---
Author Organization [employer] Address [address] [place] [address] [address] [place] [address] Care Team Providers Care Active Directory Specialist Name Role Phone Shanda Rg NP Primary Care Provider [phone] Jas Cordero Unavailable Unavailable Reason for Visit * Reason Comments Med Refill Encounter Details Date Type Department Care Team (Late st Contact Info) Description 10/29/2024 Refill [facility] [address] [place] [address] Name, MD Jerardo [address] [place] [address] Chronic pain of both knees Social History Tobacco Use Types Packs/Day Years [...] Description 01/01/2025 9:30 AM EDT Office Visit [address] [address] Shanda Rg NP [address] [place] [phone] 01/30/2025 1:00 PM EDT Clinical Support [address] [address] Cait Velazquez RN documented as of this encounter Visit Diagnoses Diagnosis Chronic pain of both knees documented in this encounter Additional Health Concerns Assessment Noted Time PHQ-9 Depression Total Score: 23 025 2:34 PM EST documented as of this encounter Care Teams Active Directory Specialist Relationship Specialty Start Date End Date Shanda Rg NP [address] [place] [id number] PCP - General Family Medicine 06/06/23 Jas Cordero FNP [address] [place] [id number] Nurse Practitioner Family Medicine 07/24/23 Aixa Ng Wire GalvanizerField Ironworker 09/11/23 documented as of this encounter
--- OUTSIDE RECORDS SUMMARY | 2024-11-15 15:12 | XMS_ITS | Encounter Summary ---
Author Organization [employer] Address [address] [place] [address] [address] [place] [address] Care Team Providers Care Team Assembly Line Machine Operator Name Role Phone Shanda Rg NP Primary Care Provider [phone] Jas Cordero Unavailable Unavailable Reason for Visit * Reason Comments Med Refill Encounter Details Date Type Department Care Team ([facility] st Contact Info) Description 06/08/2023 Refill [facility] [address] [place] [address] Jada Erickson FNP [address] [place] [address] Dept [place] [address] Seasonal allergic rhinitis, unspecified trigger Social History Tobacco Use Types Packs/Day Years Used Date Smoking Tobacco: Former Cigarettes Q uit: 10/02/2002 Passive Smoke Exposure: Past Smokeless Tobacco: Never Alcohol Use Standard Drinks/Week Comments Not Currently 0 (1 standard drink = 0.6 oz pur e alcohol) Depression Answer Date Recorded Patient Health Questionnaire-9 Score 10 06/01/2023 Housing Stability Answer Date Recorded What is your housing situation today? I have conrado osborn 06/05/[address] you li ve. Do you have problems with any of the following? None of the above 06/05/2023 Food Insecurity Answer Date Recorded Within the past 12 months, y ou worried that your food would run out before you got money to buy more: Never True 06/05/2023 Within the past 12 months,th e food you bought just didn't last and you didn't have enough money to get more: Never True 04/2023 Transportation Answer Date Recorded In the past 12 months, has l ack of transportation kept you from medical appts, meetings, work or from getting things needed for daily living? No 06/05/2023 Utilities Answer Date Recorded In the past 12 months, has t he electric, gas, oil or water company threatened to shut off services in your home? No 06/05/2023 Depression Answer Date Recorded Patient Health Questionnaire-2 [...] Description 01/01/2025 9:30 AM EDT Office Visit [facility] [address] [place] [id number] Shanda Rg NP [address] [place] [phone] 01/30/2025 1:00 PM EDT Clinical Support [facility] [address] [place] [id number] Cait Velazquez RN documented as of this encounter Visit Diagnoses Diagnosis Seasonal allergic rhinitis, unspecified trigger documented in this encounter Additional Health Concerns Assessment Noted Time PHQ-9 Depression Total Score: 10 023 9:23 AM EDT documented as of this encounter Care Teams Team Assembly Line Machine Operator Relationship Specialty Start Date End Date Shanda Rg NP [address] [place] [id number] PCP - General Family Medicine 06/06/23 Jas Cordero FNP [address] [place] [phone] Nurse Practitioner Family Medicine 07/24/23 Aixa Ng Addiction ProfessionalForepart Rounder 09/11/23 documented as of this encounter
--- OUTSIDE RECORDS SUMMARY | 2024-11-15 15:12 | XMS_ITS | Clinical Summary ---
Author Organization Unknown Care Team Providers Care Newswriter Name Role Phone TERRELL ARENAS, JAMILA Unavailable Unavailable RAYO AYALA, RAFI Unavailable Unavailable Payers Payer Name Policy Type Policy Number Effective Date Expira tion Date MEDICAID [facility] [id number] Problems Condition Name Condition Details Condition Category [...] 2023-08 00:00: 00 09-23 23:59 :00 No [id number] 1 tablet EVERY AM 1 tablet EVERY AM (route: oral) Med Classific ation: Cardiovas cular Therapy Agents aripiprazol e 20 mg tablet 2023-08 00:00: 00 09-23 23:59 :00 No [id number] 1 tablet BEDTIME 1 tablet BEDTIME (route: oral) Med Classific ation: Central Nervous System Agents atorvastati n 80 mg tablet 2023-08 00:00: 00 09-23 23:59 :00 No [id number] 1 tablet BEDTIME 1 tablet BEDTIME (route: oral) Med Classific ation: Cardiovas cular Therapy Agents buspirone 30 mg tablet 2023-08 00:00: 00 09-23 23:59 :00 No [id number] 1 tablet 3 TIMES DAILY 1 tablet 3 TIMES DAILY (route: oral) Med Classific ation: Central Nervous System Agents cetirizine 10 mg tablet 2023-08 00:00: 00 09-23 23:59 :00 No [id number] 1 tablet EVERY AM 1 tablet EVERY AM (route: oral) Med Classific ation: Respirato ry Therapy Agents eszopiclone 3 mg tablet 2023-08 00:00: 00 09-23 23:59 :00 No [id number] 1 tablet BEDTIME 1 tablet BEDTIME (route: oral) Med Classific ation: Central Nervous System Agents folic acid 1 mg tablet 2023-08 00:00: 00 09-23 23:59 :00 No [id number] 1 tablet EVERY AM 1 tablet EVERY AM (route: oral) Med Classific ation: Electroly te Balance-N utritiona l Products furosemide 20 mg tablet 2023-08 00:00: 00 09-23 23:59 :00 No [id number] 1 tablet EVERY AM 1 tablet EVERY AM (route: oral) Med Classific ation: Cardiovas cular Therapy Agents gabapentin 300 mg capsule 2023-08 00:00: 00 09-23 23:59 :00 No [id number] 1 capsule 2 TIMES DAILY 1 capsule 2 TIMES DAILY (route: oral) Med Classific ation: Central Nervous System Agents gabapentin 300 mg capsule 2023-08 00:00: 00 09-23 23:59 :00 No [id number] 2 capsule BEDTIME 2 capsule BEDTIME (route: oral) Med Classific ation: Central Nervous System Agents losartan 100 mg-hydrochl orothiazide 12.5 mg tablet 2023-08 00:00: 00 09-23 23:59 :00 No [id number] 1 tablet EVERY AM 1 tablet EVERY AM (route: oral) Med Classific ation: Cardiovas cular Therapy Agents metformin 500 mg tablet 2023-08 00:00: 00 09-23 23:59 :00 No [id number] 1 tablet EVERY AM 1 tablet EVERY AM (route: oral) Med Classific ation: Endocrine metoprolol tartrate 100 mg tablet 2023-08 00:00: 00 09-23 23:59 :00 No [id number] 1 tablet 2 TIMES DAILY 1 tablet 2 TIMES DAILY (route: oral) Med Classific ation: Cardiovas cular Therapy Agents mirtazapine 15 mg tablet 2023-08 00:00: 00 09-23 23:59 :00 No [id number] 0.5 tablet BEDTIME 0.5 tablet BEDTIME (route: oral) Med Classific ation: Central Nervous System Agents Risperdal 0.5 mg tablet 2023-08 00:00: 00 09-23 23:59 :00 No [id number] 1 tablet BEDTIME 1 tablet BEDTIME (route: oral) Med Classific ation: Central Nervous System Agents ropinirole 0.5 mg tablet 2023-08 00:00: 00 09-23 23:59 :00 No [id number] 2 tablet 2 TIMES DAILY 2 tablet 2 TIMES DAILY (route: oral) Med Classific ation: Central Nervous System Agents venlafaxine ER 150 mg capsule,ext ended release 24 hr 2023-08 00:00: 00 09-23 23:59 :00 No [id number] 1 capsule DAILY 1 capsule DAILY (route: oral) Med Classific ation: Central Nervous System Agents Vitamin D3 50 mcg (2,000 unit) capsule 2023-08 00:00: 00 09-23 23:59 :00 No [id number] 1 capsule EVERY AM 1 capsule EVERY AM (route: oral) Med Classific ation: Electroly te Balance-N utritiona l Products amlodipine 5 mg tablet 09-29 00:00: 00 Yes [id number] 1 tablet DAILY 1 tablet DAILY (route: oral) Med Classific ation: Cardiovas cular Therapy Agents atorvastati n 80 mg tablet 2- 00:00: 00 Yes [id number] 1 tablet BEDTIME 1 tablet BEDTIME (route: oral) Med Classific ation: Cardiovas cular Therapy Agents folic acid 1 mg tablet 2- 00:00: 00 Yes [id number] 1 tablet DAILY 1 tablet DAILY (route: oral) Med Classific ation: Electroly te Balance-N utritiona l Products furosemide 20 mg tablet 2- 00:00: 00 Yes [id number] 1 tablet DAILY 1 tablet DAILY (route: oral) Med Classific ation: Cardiovas cular Therapy Agents gabapentin 300 mg capsule 2- 00:00: 00 Yes [id number] 1 capsule 2 TIMES DAILY 1 capsule 2 TIMES DAILY (route: oral) Med Classific ation: Central Nervous System Agents gabapentin 300 mg capsule - 00:00: 00 Yes [id number] 2 capsule BEDTIME 2 capsule BEDTIME (route: oral) Med Classific ation: Central Nervous System Agents losartan 100 mg tablet 2- 00:00: 00 Yes [id number] 1 tablet DAILY 1 tablet DAILY (route: oral) Med Classific ation: Cardiovas cular Therapy Agents metformin 500 mg tablet 2- 00:00: 00 Yes [id number] 1 tablet EVERY AM 1 tablet EVERY AM (route: oral) Med Classific ation: Endocrine metoprolol tartrate 100 mg tablet 2- 00:00: 00 Yes [id number] 1 tablet 2 TIMES DAILY 1 tablet 2 TIMES DAILY (route: oral) Med Classific ation: Cardiovas cular Therapy Agents venlafaxine 75 mg tablet - 00:00: 00 Yes [id number] 1 tablet DAILY 1 tablet DAILY (route: oral) Med Classific ation: Central Nervous System Agents venlafaxine ER 150 mg tablet,exte nded release 24 hr 09-29 00:00: 00 Yes [id number] 1 tablet DAILY 1 tablet DAILY (route: oral) Med Classific ation: Central Nervous System Agents Vitamin D3 50 mcg (2,000 unit) capsule 2- 00:00: 00 Yes [id number] 1 capsule DAILY 1 capsule DAILY (route: oral) Med Classific ation: Electroly te Balance-N utritiona l Products zolpidem 10 mg tablet 2- 00:00: 00 Yes [id number] .5 tablet BEDTIME .5 tablet BEDTIME (route: oral) Med Classific ation: Central Nervous System Agents Abilify 15 mg tablet 2- 00:00: 00 Yes [id number] 1 tablet DAILY 1 tablet DAILY (route: oral) Med Classific ation: Central Nervous System Agents cetirizine 10 mg tablet 2- 00:00: 00 Yes [id number] 1 tablet DAILY 1 tablet DAILY (route: oral) Med Classific ation: Respirato ry Therapy Agents ropinirole 0.5 mg tablet 09-29 00:00: 00 Yes [id number] 1 tablet BEDTIME 1 tablet BEDTIME (route: oral) Med Classific ation: Central Nervous System Agents Senna Laxative 8.6 mg tablet - 00:00: 00 Yes [id number] 1 tablet BEDTIME 1 tablet BEDTIME (route: oral) Med Classific ation: Gastroint estinal Therapy Agents tramadol 50 mg tablet 09-29 00:00: 00 Yes [id number] 2 tablet EVERY 12 HOURS 2 tablet EVERY 12 HOURS (route: oral) Med Classific ation: Analgesic , Anti-infl ammatory or Antipyret ic buspirone 15 mg tablet 10-26 00:00: 00 Yes [id number] 1 tablet 3 TIMES DAILY 1 tablet 3 TIMES DAILY (route: oral) Med Classific ation: Central Nervous System Agents mirtazapine 7.5 mg tablet 10-26 00:00: 00 Yes [id number] 1 tablet BEDTIME 1 tablet BEDTIME (route: oral) Med Classific ation: Central Nervous System Agents risperidone 1 mg tablet 10-26 00:00: 00 Yes [id number] 1 tablet BEDTIME 1 tablet BEDTIME (route: [...] AWARENESS FOR SAFETY AND WILL NOTIFY CLINICAL PBX OPERATOR AND PHYSICIAN/PROVIDER WITH ANY CHANGE IN CONDITION. [code = SKILLED NURSE WILL MAINTAIN SITUATIONAL AWARENESS FOR SAFETY AND WILL NOTIFY CLINICAL PBX OPERATOR AND PHYSICIAN/PROVIDER WITH ANY CHANGE IN CONDITION.] [...] CARE WILL BE ESTABLISHED THAT MEETS PATIENT'S DETENTION NEEDS AND INCLUDES PATIENT GOAL FOR HOME [...] <paragraph>[Visit Date: 2024 by RAFI CADE RN]:</paragraph><paragraph>11-09-24 DETENTION VISIT MADE TO ASSESS MENTAL HEALTH STATUS SAFETY MEDICATION COMPLIANCE CARDIAC STATUS PAIN MANAGEMENT. PATIENT COMPLIANT TAKING MEDICATIONS FROM BUBBLE PACK SETUP BY PHARMACY. PATIENT CONTINUES TO HAVE ELEVATED HEART RATE READING FOR FOLLOW UP WITH ELECTRONIC TYPESETTING MACHINE OPERATOR IN NOVEMBER. PATIENT DENIES CHEST PAIN OR SHORTNESS OF BREATH. RN REVIEWED WHEN TO CALL 911 FOR CARDIAC EMERGENCY. 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 PATIENT IS SCHEDULED TO HAVE A SLEEP STUDY NEXT WEEK ... DIFFICULT SLEEPING 11/15 NEUROLOGIST APPOINTMENT. CARDIOLOGY VALENCIA</paragraph> Encounters Start Date/Time End Date/Time Encounter Type Admission Type Attending Clinicians Care Facility Care Department Encounter ID Discharge Date Discharge Status Discharge Condition Discharge Reason Percent Goals Met 2024-09-29 00:00:00 2024-11-27 00:00:00 Outpatient RAFI PATEL [facility] [id number] 14.8 1
--- OUTSIDE RECORDS SUMMARY | 2024-11-15 15:12 | XMS_ITS | Encounter Summary ---
Author Organization [employer] Address [address] [place] [address] 7 [place] [address] Care Team Providers Care Signaler Name Role Phone Shanda Rg NP Primary Care Provider [phone] Jas Cordero Unavailable Unavailable Reason for Visit * Reason Onset Date Comments Med Refill 03/25/2024 Encounter Details Date Type Department Care Team (Late st Contact Info) Description 03/25/2024 Telephone [facility] MEDICINE [address] [place] [address] Shanda Rg NP [address] [place], [place] [phone] Med Refill Social History Tobacco Use Types [...] encounter Miscellaneous Notes * Telephone Encounter - Valeria Kumar RN - 03/25/2024 3:25 PM EDT Meds. Que for approval, last time tramadol 50 mg was filled on 02/02/2024 for qty - 112 for 28 dayssupply. From [facility] pharmacy. * Telephone Encounter - Jean Rosario - 03/25/2024 1:38 PM EDT TC from pt requesting medication refill. Medications needing refill: traMADol (Ultram) 50 MG tablet To be sent to: [facility] Pharmacy documented in this encounter Plan of Treatment Upcoming Encounters Date Type Department Care Team (Late st Contact Info) Description 01/01/2025 9:30 AM EDT Office Visit [facility] MED[facility]INE [address] [place] [address] Shanda Rg NP [address] [place] [address] 01/30/2025 1:00 PM EDT Clinical Support [facility] [address] [place] [address] [place] [address] Cait Velazquez, RN documented as of this encounter Visit Diagnoses Not on filedocumented in this encounter Additional Health Concerns Assessment Noted Time PHQ-9 Depression Total Score: 9 01/30/20 24 9:09 AM EDT documented as of this encounter Care Teams Signaler Relationship Specialty Start Date End Date Shanda Rg NP [address] [place] [address] PCP - General Family Medicine 06/06/23 Jas Cordero FNP [address] [place] [address] Nurse Practitioner Family Medicine 07/24/23 Aixa Ng Community Engagement ManagerInstrumentation Technologist 09/11/23 documented as of this encounter
--- OUTSIDE RECORDS SUMMARY | 2024-11-15 15:12 | XMS_ITS | Encounter Summary ---
Author Organization [employer] Address [address] [place] [address] [address] [place] [address] Care Team Providers Care Poker Manager Name Role Phone Shanda Rg NP Primary Care Provider [phone] Jas Cordero Unavailable Unavailable Reason for Visit * Reason Comments Med Refill Encounter Details Date Type Department Care Team ([facility] st Contact Info) Description 10/21/2024 Refill [facility] [address] [place] [address] Shanda Rg NP [address] [facility] [place] [address] Radiculopathy, cervical region Social History Tobacco Use Types Packs/Day Years [...] Description 01/01/2025 9:30 AM EDT Office Visit [facility] MEDICINE [address] [place] [address] Shanda Rg NP [address] [place] [address] 01/30/2025 1:00 PM EDT Clinical Support [facility] [address] [place] [address] Cait Velazquez RN documented as of this encounter Visit Diagnoses Diagnosis Radiculopathy, cervical region Brachial neuritis or radiculitis nos documented in this encounter Additional Health Concerns Assessment Noted Time PHQ-9 Depression Total Score: 23 025 2:34 PM EST documented as of this encounter Care Teams Poker Manager Relationship Specialty Start Date End Date Shanda Rg NP [address] [place] [address] PCP - General Family Medicine 06/06/23 Jas Cordero FNP [address] [place] [address], [place] [address] Nurse Practitioner Family Medicine 07/24/23 Aixa Ng Black TopperForeign Language Interpreter 09/11/23 documented as of this encounter
--- OUTSIDE RECORDS SUMMARY | 2024-11-15 15:12 | XMS_ITS | Encounter Summary ---
Author Organization [employer] Address [address] [place] [address] 7 [place] [address] Care Team Providers Care Hand Folder Name Role Phone Shanda Rg NP Primary Care Provider [phone] Jas Cordero Unavailable Unavailable Reason for Visit * Reason Comments Med Refill Encounter Details Date Type Department Care Team (Late st Contact Info) Description 09/09/2023 Refill [facility]INE [address] [place] [address] Name, MD Jerardo [address] [place] [address] Radiculopathy, cervical region Social History Tobacco Use [...] Telephone Encounter - Shanda Rg NP - 09/14/2023 10:41 AM EST Approving, but needs appt for additional refills. documented in this encounter Plan of Treatment Upcoming Encounters Date Type Department Care Team (Late st Contact Info) Description 01/01/2025 9:30 AM EDT Office Visit [facility] MED[facility]INE [address] [place] [address] Shanda Rg NP [address] [place] [address] 01/30/2025 1:00 PM EDT Clinical Support [facility] [address] [place] [address] Cait Velazquez RN documented as of this encounter Visit Diagnoses Diagnosis Radiculopathy, cervical region Brachial neuritis or radiculitis nos documented in this encounter Additional Health Concerns Assessment Noted Time PHQ-9 Depression Total Score: 4 08/01/20 23 11:20 AM EST documented as of this encounter Care Teams Hand Folder Relationship Specialty Start Date End Date Shanda Rg NP [address] [place] [address] PCP - General Family Medicine 06/06/23 Jas Cordero FNP [address] [place] [address] Nurse Practitioner Family Medicine 07/24/23 Aixa Ng Clerk Of WorksRecord Clerk 09/11/23 documented as of this encounter
== END 2024-11-15 13:51 | disposition home or self-care (01) ==
LOC: HO.HSMS 12:49
PROVIDERS: PCP Registered Nurse; Visit Provider Nurse Practitioner Family
DX: R79.9 Abnormal finding of blood chemistry, unspecified (principal); G25.81 Restless legs syndrome; G47.61 Periodic limb movement disorder; G47.33 Obstructive sleep apnea (adult) (pediatric)
CPT/HCPCS: 99214

== ENCOUNTER → 2024-11-15 12:49 | Outpatient (BNVA) | payer MEDICAID, SELFPAY | PROVIDERS: PCP Registered Nurse; Visit Provider Nurse Practitioner Family | DX: G47.33 Obstructive sleep apnea (adult) (pediatric) (principal); G47.61 Periodic limb movement disorder; G25.81 Restless legs syndrome; R79.9 Abnormal finding of blood chemistry, unspecified | CPT/HCPCS: 99212 ==

== ENCOUNTER 2024-11-19 08:22 | Outpatient (REF) | payer MEDICAID, SELFPAY ==
[2024-11-19 08:57] LABS: MANUAL DIFF FLAG NO
[2024-11-19 09:42] LABS: Basophils Absolute Auto 0.1 X10*3/uL (0.0-0.2); Basophils Percent Auto 0.6 % (0-2); Eosinophils Absolute Auto 0.1 X10*3/uL (0.0-0.4); Eosinophils Percent Auto 1.5 % (0-4); Hematocrit 45.2 % (42.0-52.0); Hemoglobin 15.3 g/dl (14.0-18.0); Imm Gran Abs Auto 0.02 X10*3/uL (0.00-0.03); Imm Gran Pct Auto 0.2 % (0.0-0.4); Lymphocytes Percent Auto 34.6 % (20-40); Mean Corpuscular HGB Conc 33.8 g/dl (31.0-36.0); Mean Corpuscular Hemoglobin 28.4 pg (27.0-33.0); Mean Platelet Volume 11.2 fL (9.4-12.4); Monocytes Absolute Auto 0.8 X10*3/uL (0.1-1.2); Monocytes Percent Auto 8.8 % (2-11); Neutrophils Absolute Auto 4.7 x10*3/uL (2.0-8.3); Neutrophils Percent Auto 54.3 % (45-73); Platelet Count 177 X10*3/uL (160-400); Red Blood Count 5.38 X10*6/uL (4.60-5.80); Red Cell Distribution Width 13.3 % (11.0-16.0); White Blood Count 8.6 X10*3/uL (4.8-10.8)
[2024-11-19 09:49] LABS: Estimated Average Glucose 148 mg/dL; Hemoglobin A1c % 6.8 % (<6.0)
[2024-11-19 10:15] LABS: Triglycerides 248 mg/dL (<150)
[2024-11-19 10:28] LABS: Erythrocyte Sedimentation Rate 12 MM/HR (0-15)
[2024-11-19 10:34] LABS: Alanine Aminotransferase 27 U/L (0-40); Albumin Level 4.1 g/dL (3.5-5.0); Alkaline Phosphatase 108 U/L (39-117); Anion Gap 11 (12-20); Aspartate Amino Transferase 19 U/L (5-37); Bilirubin Total 0.3 mg/dL (0.0-1.0); Blood Urea Nitrogen 28 mg/dL (9-16); Calcium 9.5 mg/dL (8.4-10.2); Carbon Dioxide 26 mmol/L (22-29); Chloride 106 mmol/L (96-108); Estimated Glomerular Filt Rate 58; Glucose Random 125 mg/dL (60-115); Iron 45 mcg/dL (45-160); Percent Iron Saturation 17 % (15-50); Potassium 4.3 mmol/L (3.3-5.1); Sodium 139 mmol/L (135-145); Total Iron Binding Capacity 267 mcg/dL (228-428); Total Protein 7.4 g/dL (6.5-8.0); Unsaturated Iron Binding 222 ug/dL
[2024-11-19 10:46] LABS: Folate 13.9 ng/mL (> or = 4.0); Vitamin B12 350 pg/mL (200-900)
[2024-11-19 10:53] LABS: Ferritin 202 ng/mL (20-250); TSH reflex Free T4 2.29 uIU/mL (0.32-4.0)
[2024-11-20 09:49] LABS: CRP High Sensitivity 11.6 mg/L
[2024-11-22 11:03] LABS: Methylmalonic Acid 319 nmol/L (55-335)
[2024-11-23 15:19] LABS: Vitamin D 25-OH, D2 <4 ng/mL; Vitamin D 25-OH, D3 38 ng/mL; Vitamin D 25-OH, Total 38 ng/mL (30-100)
[2024-11-24 18:08] LABS: Vitamin B6 8.6 ng/mL (2.1-21.7)
== END 2024-11-19 08:23 | disposition home or self-care (01) ==
LOC: HO.HHCL 08:22
PROVIDERS: Nurse Practitioner; Visit Provider Nurse Practitioner Family
DX: E11.9 Type 2 diabetes mellitus without complications (principal); R79.89 Other specified abnormal findings of blood chemistry; G25.81 Restless legs syndrome; E83.19 Other disorders of iron metabolism; R79.9 Abnormal finding of blood chemistry, unspecified; E78.1 Pure hyperglyceridemia
CPT/HCPCS: 36415; 80053; 82306; 82607; 82728; 82746; 83036; 83090; 83540; 83921; 84207; 84443; 84478; 85025; 85652; 86141

== ENCOUNTER 2024-11-27 14:22 | Outpatient (AMB) | payer MEDICAID, SELFPAY ==
--- NOTE | 2024-11-27 14:23 | A.OFFVIS_ITS ---
Vital Signs 11/27/24 14:25 Height 5 ft 6 in Weight 215 lb 9.793 oz BMI 34.8 BP 116/74 Blood Pressure Location Rt brachial Position Sitting Pulse 74 Pulse Source Pulse Oximeter Pulse Oximetry (%) 96 Oxygen Delivery Method Room Air Intake Visit Reasons: 1 year follow up Intake Note: ESTABLISHED PATIENT for [facility] mgmt w/ hx of hemorrhoids Chief Complaint; Pt denies any GI concerns. However. Pt does have concerns regarding kidney levels? PCP ordered labs which were done through [facility]. Pt also has occasional SoB without exertion but seemingly idiopathic. Pt is actively discussing with PCP but is still expressing concerns openly. Casting Carrier Required: Yes Casting Carrier Services: Casting Carrier Present Casting Carrier Name: Carlo [id number] Information Interpreted: clinical only Accompanied by: Self / Same As Patient Allergies No Known Allergies [No Known Allergies*] Allergy (Verified 11/27/24 14:23) HPI HPI 1 year follow up: Details: LAST VISIT: GERD (gastroesophageal reflux disease) Constipation Plan Patient will continue taking senna daily. Encouraged to increase fluid intake and activity to promote better bowel motility. Continue avoiding dietary triggers and late night snacking. Staying upright for minimum 3 hours after meals discussed with patient. Patient reports to have palpitation without any chest pain. Does report occasional shortness of breath with or without exertion. Will send patient to see a history department chair. He will be due to go for colonoscopy next year we will make sure that he is clear for the procedure. Patient reports that these symptoms are new. I will see patient in 1 year, sooner on as needed basis. Patient is agreeable to this plan and verbalizes understanding of instructions. He was given the opportunity to ask questions and all questions answered. ? Thank you for allowing me to participate in his care Orders Referrals Cardiology Referral R00.2 TODAY'S VISIT: Patient is here today for follow-up and discussed going for colonoscopy. Patient denies any issues with anesthesia in the past will be due and of this year. Denies any melena, hematochezia, unintentional weight loss or ribbon like stools. Patient denies any dyspepsia, dysphagia or odynophagia. Currently is moving his bowels well. Takes Senokot daily. Denies dyspepsia, dysphagia or odynophagia. Has appointment with his history department chair. Patient will be is Dr. Johnson, we will call for clearance. Patient is not on any anticoagulation medication. Patient was diagnosed with sleep apnea and currently is wearing CPAP every night. Denies any cardiac or respiratory symptoms. Patient denies any GI concerning symptoms [facility] Medical History Low vitamin B12 level Internal hemorrhoid Tubular adenoma Cardiomyopathy Elevated cholesterol Sleep apnea Diabetes HTN (hypertension) Radiculopathy, lumbar region Disc degeneration, lumbar Spondylosis of lumbar spine Spondylosis of cervical spine Surgical History (Updated 11/27/24 @ 14:44 by YUE Welsh) S/P skin biopsy History of hernia repair Hx of cardiac catheterization H/O colonoscopy Hx of knee surgery Hernia Family History Father HTN (hypertension) Diabetes Mother Diabetes HTN (hypertension) Heart disease Social History Household Members: Family Alcohol intake: former Patient Tobacco Use Status: Former Tobacco user Tobacco use type: Cigarette 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 Review of Systems Const Denies weight gain and Denies weight loss ENT Reports no additional complaints, Denies dysphagia and Denies odynophagia Card Reports no additional complaints Resp Reports no additional complaints GI Denies abdominal pain, Denies belching, Denies melena, Denies bloating, Denies change in bowel habits, Denies dysphagia, Denies excessive flatus, Denies dyspepsia, Denies heartburn, Denies diarrhea, Denies loose stools, Denies nausea, Denies odynophagia and Denies vomiting Reports no additional complaints Musc Reports no additional complaints Neuro Reports no additional complaints Psych Reports no additional complaints Endo Reports no additional complaints Physical Exam Vital Signs: Last Vital Signs Pulse 74 11/27/24 14: BP 116/74 11/27/24 14:25 Pulse Ox 96 11/27/24 14:25 Oxygen Delivery Method Room Air 11/27/24 14:25 BMI result Body Mass Index 34.8 Const General: healthy appearing, no acute distress and well developed Nutritional Appearance: well nourished and obese Orientation/consciousness: patient oriented x3 Resp Effort & Inspection: normal respiratory effort, able to speak in complete sen tences, no tracheal deviation and symmetric chest movement Auscultation: clear to auscultation bilaterally Cardio Rate: regular rate GI Inspection: Yes normal to inspection, No distended and Yes obesity Palpation (GI): Soft to palpation, not firm, nontender and No hepatosplenomegaly present Auscultation: normal bowel sounds General: Yes no CVA tenderness Back/Spine/Pelvis Back: no CVA tenderness Skin General skin exam: elasticity normal, turgor normal and dry skin Neuro General: patient oriented x3 Psych Appearance: grossly normal Mental Status: mental status grossly normal Assessment & Plan Assessment & Plan (1) GERD (gastroesophageal reflux disease): Code(s): K21.9 - Gastro-esophageal reflux disease without esophagitis Qualifiers: Esophagitis presence: esophagitis presence not specified Qualified Code(s): K21.9 - Gastro-esophageal reflux disease without esophagitis (2) Constipation: Code(s): K59.00 - Constipation, unspecified Qualifiers: Constipation type: chronic idiopathic constipation Qualified Code(s): K59.04 - Chronic idiopathic constipation (3) Screen for colon cancer: Code(s): Z12.11 - Encounter for screening for malignant neoplasm of colon Plan No issues with anesthesia in the past. Will call history department chair for clearance. Patient has a history of sleep apnea using CPAP every night. Patient is not on any anticoagulation medication. Continue senna 1-2 tablets daily. What to expect before during and after procedure discussed with patient. Stressed importance of good bowel prep and clear liquid diet. Patient will be seen after the procedure, sooner on as needed basis. He is agreeable to this plan and verbalizes understanding of instructions. He was given the opportunity to ask questions and all questions answered. Thank you for allowing me to participate in his care Medications: New bisacodyl (Dulcolax (bisacodyl)) take 4 tabs at noon the day before your colonoscopy 20 mg (4 x 5 mg) PO ONCE 1 day 4 tabs 0RF Z12.11 - Encounter for screening for malignant neoplasm of colon polyethylene glycol 3350 (Miralax) As directed by gastroenterology department at [facility] 238 grams PO ONCE 238 grams 0RF Z12.11 - Encounter for screening for malignant neoplasm of colon Coding Level of Care Code Est Pt Level 3 (04301) Diagnoses Gastroesophageal reflux disease, unspecified whether esophagitis present K21.9 Esophagitis presence: esophagitis presence not specified Chronic idiopathic constipation K59.04 Constipation type: chronic idiopathic constipation Screen for colon cancer Z12.11 Time Spent (min) 30 Comment 20 minutes spent with patient and additional 10 minutes spent reviewing his records
[2024-11-27 14:25] VITALS: BP 116/74; PULSE 74; O2SAT 96; BMI 34.8
--- OUTSIDE RECORDS SUMMARY | 2024-11-27 17:10 | XMS_ITS | Clinical Summary ---
Author Organization [employer] Address [address] [place] [address] 7 [place] [address] Care Team Providers Care Electronics Detail Draftsperson Name Role Phone Shanda Rg NP Primary Care Provider [phone] Jas Cordero Unavailable Unavailable Allergies No known [...] hours. 02/21/20 20 Active Fluocinolone Acetonide Scalp ([place]oothe /FS Scalp) 0.01 % oilIndications :Psoriasis Use [...] EVERY MORNING 90 tablet 10/23/19 25 Active amLODIPine (Norvasc) 5 MG tablet TAKE 1 TABLET BY MOUTH EVERY MORNING 90 tablet 10/23/19 25 Active TRUEplus Lancets 33G miscIndication s:Type 2 diabetes mellitus without complication, unspecified whether skilled nursing insulin use ([facility]) TEST BLOOD SUGAR ONCE DAILY 100 each 11 10/30/19 25 Active glucose blood (FREESTYLE LITE) test stripIndicatio ns:Type 2 diabetes mellitus without complication, unspecified whether skilled nursing insulin use ([facility]) TEST BLOOD SUGAR ONCE DAILY 50 each 11 10/30/19 25 Active Blood Glucose Monitoring Suppl (FreeStyle Lite) w/Device kitIndications :Type 2 diabetes mellitus without complication, 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 1 kit 10/30/19 25 Active Alcohol Swabs 70 % padsIndication s:Type 2 diabetes mellitus without complication, unspecified whether skilled nursing insulin use ([facility]) 1 Units 3 times daily. 90 each 3 10/30/19 25 Active traMADol (Ultram) 50 MG tabletIndicati ons:Chronic pain of both knees TAKE 2 TABLETS BY MOUTH EVERY TWELVE HOURS NEEDED FOR SEVERE PAIN 112 tablet 10/31/19 25 Active gabapentin (Neurontin) 300 MG capsuleIndicat ions:Radiculop athy, cervical region TAKE 1 CAPSULE BY MOUTH TWICE DAILY IN THE MORNING AND AT NOON and TAKE 2 CAPSULES BY MOUTH EVERY DAY AT BEDTIME 120 capsule 11/21/19 25 Active TRUEplus Lancets 33G misc TEST BLOOD SUGAR ONCE DAILY 100 each 11 12/31/19 23 2024 Discontinued(R eorder (will not trigger notification to Pharmacy)) glucose blood (FREESTYLE LITE) test stripIndicatio ns:Type 2 diabetes mellitus without complication, 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 112 tablet 10/01/19 25 2024 Discontinued gabapentin (Neurontin) 300 MG capsuleIndicat ions:Radiculop athy, cervical region TAKE 1 CAPSULE BY MOUTH TWICE DAILY IN THE MORNING AND AT NOON and TAKE 2 CAPSULES BY MOUTH EVERY DAY AT BEDTIME 120 capsule 10/23/19 25 2024 Discontinued Blood Glucose Monitoring Suppl (FreeStyle Lite) w/Device kit 1 kit. 2024 Discontinued(R eorder (will not trigger notification to Pharmacy)) Alcohol Swabs 70 % pads 2024 Discontinued(R eorder (will not trigger notification to Pharmacy)) Active Problems Problem Noted Date Diagnosed Date Chronic pain syndrome 10/19/2024 Assessment & Plan (10/19/2024 12:10 PM EST): -followed by [facility] pain management group -continue tramadol as ordered -encouraged to continue [facility] [employer] appointments and encouraged to give some thought [...] radiculopathy 09/21/2022 Overview (04/13/2023): Xray Cervical spine 11/25/22 Cervical spondylosis at [...] that showed slight lumbar dextrocurvature with trace [id number] lateral lithesis at L4-L5. Trace anterolithesis at [...] Pain affecting gait and ambulation Discussed RUBINA murphy with pt, he will bring necessary paperwork [...] retiring patient will be transferred to new [facility] Psychiatric Prescriber. Pt is aware that those appointments will be via televisit, and that the provider is not an [facility] employee. He gives verbal consent to share [...] Encounters Date Type Department Care Team Description 11/19/2024 Orders Only GENERIC EXTERNAL DATA DEPARTMENT Provider, Generic External Data 11/19/2024 Refill [facility] [address] [place] [address] Shanda Rg NP Radiculopathy, cervical region 11/08/2024 Population Health Risk Score [facility] ([facility] Department [address] [phone] Provider, Population Health Generic 10/29/2024 Refill [facility] [address] [place] [address] Name, MD Jerardo Chronic pain of both knees 10/29/2024 Refill [facility] [address] [place] [address] Shanda Rg NP Type 2 diabetes mellitus without complication, 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 ([facility]) 10/29/2024 Refill [facility] [address] [place] [address] Shanda Rg NP Type 2 diabetes mellitus without complication, unspecified whether skilled nursing insulin use ([facility]) (Primary Dx) 10/22/2024 Telephone [facility] [address] [place] [address] Shanda Rg NP 10/21/2024 Refill [facility] [address] [place] [address] Shanda Rg NP Radiculopathy, cervical region 10/16/2024 1:15 PM EST Office Visit [facility] [address] [place] [address] Kuldip, Oly, OD Presbyopia (Primary Dx) 10/15/2024 Telephone [facility] [address] [place] [address] Sudha Werner MA 10/02/2024 2:00 PM EST Clinical Support [facility] [address] [place] [phone] Cait Velazquez, general clerk pain of both knees (Primary Dx) 10/02/2024 Travel 10/02/2024 Telephone [facility] [address] [place] [phone] Cait Velazquez, LUCY Recommend [facility] Tier 3 09/30/2024 Refill [facility] [address] [place] [phone] Shanda Rg NP Chronic pain of both knees 09/20/2024 Refill [facility] [address] [place] [address] Shanda Rg NP Radiculopathy, cervical region 09/11/[address] [address] Shanda Rg NP Care Coordination (ICP Care Plan) 09/10/2024 Refill [facility] [address] [place] [address] Shanda Rg NP Major depressive disorder with psychotic features (CMS/HCC) 09/09/[address] [address] Marianne Rico RN Call Back Request 09/06/2024 1:00 PM EST Office Visit [facility] [address] [place] [address] Kuldip, Oly, OD Diabetes type 2, no ocular involvement (CMS/HCC) (Primary Dx); Dry eyes, bilateral; Presbyopia 09/06/2024 Travel 09/06/2024 Orders Only [facility] [address] [place] [phone] Shanda Rg NP Elevated BUN (Primary Dx); High triglycerides 09/04/2024 2:30 PM EST Office Visit [facility] [address] [place] [phone] Shanda Rg NP Type 2 diabetes mellitus without complication, without long-term current use of insulin (CMS/HCC) (Primary Dx); Tinea pedis of both feet; Encounter for immunization; Dietary counseling; Exercise counseling; Chronic pain syndrome; Primary hypertension 09/04/2024 Travel 08/30/2024 Refill [facility] [address] [place] [address] Shanda Rg NP Chronic pain of both knees from Last 3 Months Immunizations Name Administration [...] 9:30 AM EDT Office Visit [facility] [address] [place] [phone] Shanda Rg NP [address] [place] [address] 01/30/2025 1:00 PM EDT Clinical Support [facility] [address] [place] [phone] Cait Velazquez, RN Health Maintenance Due Date Last Done Comments CT Colonography 1965 FIT DNA/Cologuard 1965 FIT 1965 FOBT 1965 Sigmoidoscopy 1965 Hepatitis B Vaccines (2 of 3 - 19+ 3-dose series) 05/11/2023 04/13/2023 COVID-19 Vaccine (5 - 2023- season) 2024 09/02/2022, 2021, 12/07/2020, Additional history exists Influenza Vaccine (#1) 2024 , 05/16/2018, 05/19/2016 Depression Monitoring (PHQ-9) 03/04/2025 09/04/2024, 09/04/2024 Diabetes: Hemoglobin A1C 05/22/2025 025, 09/04/2024, 11/03/2023, Additional history exists Alcohol/Substance Use Screening 09/04/2025 09/04/2024 Depression Screening 09/04/2025 09/04/2024, 09/04/19 Diabetes: Foot Exam 09/04/2025 09/04/2024, 09/04/2024, 09/04/2024, [...] Procedure Name Priority Date/Time Associated Diagnosis Comments VITAMIN B6 Routine 11/19/2024 8:55 AM EDT VITAMIN D 25-OH (D2 AND D3) Routine 11/19/2024 8:55 AM EDT METHYLMALONIC ACID Routine 11/19/2024 8: 55 AM EDT HOMOCYSTEINE Routine 11/19/2024 8:55 AM EDT CRP, HIGH SENSITIVITY Routine 11/19/2024 8:55 AM EDT TSH W/REFLEX TO FT4 Routine 11/19/2024 8 :55 AM EDT FERRITIN Routine 11/19/2024 8:55 AM EDT VITAMIN B12/FOLATE, SERUM PANEL Routine 11/19/2024 8:55 AM EDT IRON AND TOTAL IRON BINDING CAPACITY Routine 11/19/2024 8:55 AM EDT COMPREHENSIVE METABOLIC PANEL Routine 11/19/2024 8:55 AM EDT SED RATE BY MODIFIED WESTERGREN Routine 11/19/2024 8:55 AM EDT HEMOGLOBIN A1C Routine 11/19/2024 8:55 AM EDT CBC WITH AUTO DIFFERENTIAL Routine 11/19/2024 8:55 AM EDT TRIGLYCERIDES Routine 11/19/2024 8:55 AM EDT High triglycerides POCT ADRIAN-14 URINE DRUG SCREEN Routine 10/02/2024 [...] Recently Relevant to Health Maintenance Results * VITAMIN D 25-OH (D2 AND D3) (11/19/2024 8:55 AM EDT) Vitamin D, 25-OH, D2 <4 ng/mL [facility] Comment:This test was develo ped and its analytical performancecharacteristics have been determined by [employer] [place], [place]. It hasnot been cleared or approved by the U.S. Food and DrugAdministration. This assay has been validated pursuantto the CLIA regulations and is used for clinicalpurposes.THIS TEST WAS PERFORMED AT:[employer] [id number] [place] [id number] THAO MD,PHD Vitamin D, 25-OH, D3 38 ng/mL [facility] Comment:This test was develo ped and its analytical performancecharacteristics have been determined by [employer] [facility] [place], [place]. It hasnot been cleared or approved by the U.S. Food and DrugAdministration. This assay has been validated pursuantto the CLIA regulations and is used for clinicalpurposes. Vitamin D, 25-OH, Total 38 30 - 100 ng/mL [facility] Comment:Vitamin D, 25-Hydrox y reports concentrations of twocommon forms, 25-OHD2 and 25-OHD3. 25-OHD3 indicatesboth endogenous production and supplementation.25-OHD2 is an indicator of exogenous sources such asdiet or supplementation. Therapy is based onmeasurement of Total 25-OHD, with levels <20 ng/mLindicative of Vitamin D deficiency, while levelsbetween 20 ng/mL and 30 ng/mL suggest insufficiency.Optimal levels are > or = 30 ng/mL.For additional information, please refer tohttp://education.Fan [employer]/faq/VCG440(This link is being provided for informational/educational purposes only.) 11/19/2024 8:55 AM EDT 11/19/2024 8:55 AM EDT us Generic External Data Provider LAB BLOOD ORDERAB LES Final Result [facility] [address] [place] [address] [phone] * (ABNORMAL) CRP, HIGH SENSITIVITY (11/19/2024 8:55 AM EDT) CRP, High Sensitivity 11.6(A) mg/L [facility] Comment: Reference RangeOptimal <1.0Lizzie OCHOA et al. Endocr Pract.2017;23(Suppl 2):1- 87.For ages >17 Years:hs-CRP mg/L ??Risk According to AHA/CDC Guidelines<1.0 ? Lower relative cardiovascular risk.1.0-3.0 ?Average relative cardiovascular risk.3.1-10.0 ? Higher relative cardiovascular risk. ? Consider retesting in 1 to 2 weeks to ? exclude a benign transient elevation ? in the baseline CRP value secondary ? to infection or inflammation.>10.0 ?Persistent elevation, upon retesting, ? may be associated with infection and ? inflammation.Carline TA, Dana GA, Steven RW, et al. Markersof inflammation and cardiovascular disease:application to clinical and public health practice:A statement for healthcare professionals from theCenters for Disease Control and Prevention and theAmerican Heart Association. Circulation 2003; 107(3):499-511.THIS TEST WAS PERFORMED AT:[employer] [place] [address] ?? [id number] PALACIO MD 11/19/2024 8:55 AM EDT 11/19/2024 8:55 AM EDT us Generic External Data Provider LAB BLOOD ORDERAB LES Final Result [facility] [address] [place] [phone] [phone] * Vitamin B12 (Cobalamin) and Folate Panel, Serum (11/19/2024 8:55 AM EDT) [facility] Vitamin B12 350 200 - 900 pg/mL [facility] Comment:NORMAL 200-900 PG/ML INDETERMINATE 160-199 PG/ML DEFICIENT < 160 PG/ML Folate 13.9 > or = 4.0 ng/mL [facility] Comment:Reference Values:> o r = 4.0 ng/mL< 4.0 ng/mL suggests folate deficiency Methotrexate, aminopterin and folinic acid(leucovorin) are chemotherapeutic agents whose molecularstructures are similar to folate; therefore, the Architectfolate assay cannot be used for patients using these drugs. 11/19/2024 8:55 AM EDT 11/19/2024 8:55 AM EDT Generic External Data Provider LAB BLOOD ORDERAB LES Final Result Performing Organization Address [facility]/ZIP Co de Phone Number [facility] [address] [place] [phone] * TSH with Reflex to Free T4 (11/19/2024 8:55 AM EDT) [facility] TSH reflex Free T4 2.29 0.32 - 4.0 uIU/mL [facility] 11/19/2024 8:55 AM EDT 11/19/2024 8:55 AM EDT Generic External Data Provider LAB BLOOD ORDERAB LES Final Result Performing Organization Address City/[facility]/ZIP Co de Phone Number [facility] [address] [place] [phone] * CBC auto differential (11/19/2024 8:55 AM EDT) [facility] White Blood Count 8.6 4.8 - 10.8 X10*3/uL [facility] Red Blood Count 5.38 4.60 - 5.80 X10*6/uL [facility] Hemoglobin 15.3 14.0 - 18.0 g/dl [facility] Hematocrit 45.2 42.0 - 52.0 % [facility] Mean Corpuscular Volume 84.0 80.0 - 98.0 fL [facility] Mean Corpuscular Hemoglobin 28.4 27.0 - 33.0 pg [facility] Mean Corpuscular HGB Conc 33.8 31.0 - 36.0 g/dl [facility] Red Cell Distribution Width 13.3 11.0 - 16.0 % [facility] Platelet Count 177 160 - 400 X10*3/uL [facility] Mean Platelet Volume 11.2 9.4 - 12.4 fL [facility] Neutrophils Percent Auto 54.3 45 - 73 % [facility] Imm Gran Pct Auto 0.2 0.0 - 0.4 % [facility] Lymphocytes Percent Auto 34.6 20 - 40 % [facility] Monocytes Percent Auto 8.8 2 - 11 % [facility] Eosinophils Percent Auto 1.5 0 - 4 % [facility] Basophils Percent Auto 0.6 0 - 2 % [facility] NRBC Pct Auto 0.0 0.0 - 0.2 /100WBC [facility] Neutrophils Absolute Auto 4.7 2.0 - 8.3 x10*3/uL [facility] Imm Gran Abs Auto 0.02 0.00 - 0.03 X10*3/uL [facility] Lymphocytes Absolute Auto 3.0 1.2 - 4.9 X10*3/uL [facility] Monocytes Absolute Auto 0.8 0.1 - 1.2 X10*3/uL [facility] Eosinophils Absolute Auto 0.1 0.0 - 0.4 X10*3/uL [facility] Basophils Absolute Auto 0.1 0.0 - 0.2 X10*3/uL [facility] NRBC Abs Auto 0.000 0.0 - 0.012 X10*3/uL [facility] 11/19/2024 8:55 AM EDT 11/19/2024 8:55 AM EDT us Generic External Data Provider LAB BLOOD ORDERAB LES Final Result Performing Organization Address City/[facility]/ZIP Co de Phone Number [facility] [address] [place] [phone] * Methylmalonic Acid (11/19/2024 8:55 AM EDT) Methylmalonic Acid 319 55 - 335 nmol/L [facility] Comment: Serum methylmalonic acid (MMA) levels are used todiagnose and monitor several rare inborn errors ofmetabolism, including methylmalonic aciduria. Theenzymatic conversion of MMA to succinic acid requiresvitamin B12 (adenosyl-cobalamin) as a cofactor. SerumMMA levels are also used for assessing functionalvitamin B12 deficiency. Vitamin B12 is essential forfetal neurodevelopment, particularly early inpregnancy. Undiagnosed maternal vitamin B12 deficiencymay be associated with adverse / outcomes,such as neural tube defects and intrauterine growthrestriction.docplanner utilized Multi-Modal Decomposition(MMD) analysis to establish first and second trimester-specific MMA reference intervals in , as givenbelow:MMA, First trimester (<13 wks gestation): 58-167 nmol/LMMA, Second trimester (13-23 wks gestation):63-241 nmol/LThis test was developed and its analytical performancecharacteristics have been determined by [employer] [facility]. It has not been cleared or approved by theFDA. This assay has been validated pursuant to the CLIAregulations and is used for clinical purposes.THIS TEST WAS PERFORMED AT:[employer] [place], [place] ??[id number] THAO MD,PHD 11/19/2024 8:55 AM EDT 11/19/2024 8:55 AM EDT us Generic External Data Provider LAB BLOOD ORDERAB LES Final Result Performing Organization Address City/[facility]/ZIP Co de Phone Number [facility] [address] [place] [phone] [phone] * Iron And Total Iron Binding Capacity (11/19/2024 8:55 AM EDT) Iron 45 45 - 160 mcg/dL [facility] Total Iron Binding Capacity 267 228 - 428 mcg/dL [facility] Percent Iron Saturation 17 15 - 50 % [facility] Unsaturated Iron Binding 222 ug/dL [facility] 11/19/2024 8:55 AM EDT 11/19/2024 8:55 AM EDT Generic External Data Provider LAB BLOOD ORDERAB LES Final Result Performing Organization Address City/[facility]/ZIP Co de Phone Number [facility] [address] [place] [phone] * Sed Rate by Modified Arturoren (11/19/2024 8:55 AM EDT) Erythrocyte Sedimentation Rate 12 0 - 15 MM/HR [facility] Comment:Patients with polycy themia and many hemoglobin abnormalitiesmay have depressed sed rates whereas patients with anemiamay have elevated sed rates. 11/19/2024 8:55 AM EDT 11/19/2024 8:55 AM EDT Generic External Data Provider LAB BLOOD ORDERAB LES Final Result Performing Organization Address [facility] Co de Phone Number [facility] [address] [place] [phone] * (ABNORMAL) Triglycerides (11/19/2024 8:55 AM EDT) Triglycerides 248(H) <150 mg/dL [facility] Comment:Desirable Triglyceri de: less than 150 mg/dLBorderline High Triglyceride 150-199 mg/dLHigh Triglyceride: 200-499 mg/dLVery High Triglyceride: greater than or equal to 5OO mg/dL Blood Venous blood specimen / Unknown 11/19/2024 8:55 AM EDT 11/19/2024 8:55 AM EDT us Shanda Rg FIELD ASSEMBLY SUPERVISOR LAB BLOOD ORDERABLES Final Resu lt Performing Organization Address City/[facility]/ZIP Co de Phone Number [facility] [address] [place] [phone] * Vitamin B6, Plasma (11/19/2024 8:55 AM EDT) Vitamin B6 8.6 2.1 - 21.7 ng/mL [facility] Comment:Vitamin supplementat ion within 24 hours prior toblood draw may affect the accuracy of the results.This test was developed and its analytical performancecharacteristics have been determined by [employer] [place], [place]. It hasnot been cleared or approved by the U.S. Food and DrugAdministration. This assay has been validated pursuantto the CLIA regulations and is used for clinicalpurposes.THIS TEST WAS PERFORMED AT:[employer] [place] [id number] THAO MD,PHD 11/19/2024 8:55 AM EDT 11/19/2024 8:55 AM EDT Generic External Data Provider LAB BLOOD ORDERAB LES Final Result Performing Organization Address [facility]/ZIP Co de Phone Number [facility] [address] [place] [phone] * (ABNORMAL) Homocysteine (11/19/2024 8:55 AM EDT) Pathologist [facility] Homocysteine 13.0(A) <11.4 umol/L [facility] Comment:Homocysteine is incr eased by functional deficiency offolate or vitamin B12. Testing for methylmalonic aciddifferentiates between these deficiencies. Other causesof increased homocysteine include renal failure, folateantagonists such as methotrexate and phenytoin, andexposure to nitrous oxide.Carmela Licona et al., [employer] Maintainer Med. 1999;131(5):331-9.THIS TEST WAS PERFORMED AT:[employer] [address] [id number] PALACIO MD 11/19/2024 8:55 AM EDT 11/19/2024 8:55 AM EDT us Generic External Data Provider LAB BLOOD ORDERAB LES Final Result Performing Organization Address [facility] Co de Phone Number [facility] [address] [place] [phone] * (ABNORMAL) Hemoglobin A1c (11/19/2024 8:55 AM EDT) Hemoglobin A1c 6.8(H) <6.0 % [facility] Comment:Hemoglobin A1C Refer ence Range Adults: 4.8 - 6.0 % Non diabetic: < 6.0 % Goal: < 7.0 %Additional Action Suggested: > 8.0 %Note: Hemoglobin A1c results are invalid for patients with abnormal amounts of HbF. Blood transfusions may impact the HbA1c concentration in the patient sample. Estimated Average Glucose 148 mg/dL [facility] Comment:eAG = Estimated ave rage glucose which is %A1C expressed asaverage glucose, using the formula of the U5W-FldnepmZfizxrw Glucose study (ADAG), Diabetes Care, Vol.31,#8,Mar. 2007 11/19/2024 8:55 AM EDT 11/19/2024 8:55 AM EDT us Generic External Data Provider LAB BLOOD ORDERAB LES Final Result Performing Organization Address City/[facility]/ZIP Co de Phone Number [facility] [address] [place] [phone] * Ferritin (11/19/2024 8:55 AM EDT) Ferritin 202 20 - 250 ng/mL [facility] 11/19/2024 8:55 AM EDT 11/19/2024 8:55 AM EDT us Generic External Data Provider LAB BLOOD ORDERAB LES Final Result Performing Organization Address [facility]/ZIP Co de Phone Number [facility] [address] [place] [phone] * (ABNORMAL) Comprehensive Metabolic Panel (11/19/2024 8:55 AM EDT) Sodium 139 135 - 145 mmol/L [facility] Potassium 4.3 3.3 - 5.1 mmol/L [facility] Chloride 106 96 - 108 mmol/L [facility] Carbon Dioxide 26 22 - 29 mmol/L [facility] Anion Gap 11(L) 12 - 20 [facility] Urea Nitrogen (BUN) 28(H) 9 - 16 mg/dL [facility] Creatinine, Serum 1.28 0.5 - 1.4 mg/dL [facility] Estimated Glomerular Filt Rate 58 [facility] Comment:Chronic Kidney Disea se: Estimated GFR < 60 mL/min/1.00j0[place] Kidney Disease: Estimated GFR < 15 mL/min/1.73m2 Glucose 125(H) 60 - 115 mg/dL [facility] Calcium 9.5 8.4 - 10.2 mg/dL [facility] Bilirubin, Total 0.3 0.0 - 1.0 mg/dL [facility] Aspartate Amino Transferase 19 5 - 37 U/L [facility] Alanine Aminotransferase 27 0 - 40 U/L [facility] Total Protein 7.4 6.5 - 8.0 g/dL [facility] Albumin Level 4.1 3.5 - 5.0 g/dL [facility] Alkaline Phosphatase 108 39 - 117 U/L [facility] 11/19/2024 8:55 AM EDT 11/19/2024 8:55 AM EDT us Generic External Data Provider LAB BLOOD ORDERAB LES Final Result Performing Organization Address [facility]/ZIP Co de Phone Number [facility] [address] [place] [address] [phone] * POCT ADRIAN-14 Urine Drug Screen (10/02/2024 1:58 PM EST) Urine Urine specimen obtained by clean catch procedure / Unknown 10/02/2024 1:58 PM EST Narrative Cait Velazquez RN - 10/02/2024 1:58 PM EST UTOX cup Lot#[id number] Exp. 05/22/26 Internal Pass Control Negative for all substances us Shanda Rg NP POINT OF CARE TEST ENTER/EDIT O RDERABLES Final Result * Albumin, Random Urine W/Creatinine (09/05/2024 8:35 AM EST) Creatinine, Urine 117.04 mg/dL [facility] Microalbumin Urine 8.0 mg/L [facility] Microalbum Creatinine Ratio Ur 6.8 <30 ug/mg cr [facility] Comment:Albumin/Creatinine R atio Reference Ranges: Normal: < 30 ug/mg creatinine Microalbuminuria: 30 - 300 ug/mg creatinineClinical Albuminuria: > 300 ug/mg creatinine Urine (Urine, Random) 09/05/2024 8:35 AM EST 09/05/2024 11:21 AM EST us Shanda Rg NP LAB URINE ORDERABLES Final Resu lt [facility] [address] [place] [address] [phone] * (ABNORMAL) Lipid Panel, Standard (09/05/2024 8:35 AM EST) Triglycerides 344(H) <150 mg/dL [facility] Comment:Mild Lipemia.Desirab le Triglyceride: less than 150 mg/dLBorderline High Triglyceride 150-199 mg/dLHigh Triglyceride: 200-499 mg/dLVery High Triglyceride: greater than or equal to 5OO mg/dL Cholesterol 183 <200 mg/dL [facility] Comment:Desirable Cholestero l: less than 200 mg/dLBorderline High Cholesterol: 200-239 mg/dLHigh Cholesterol: greater than 239 mg/dL LDL Cholesterol Calculated 82 <100 mg/dL [facility] Comment:Desirable LDL: less than 100 mg/dLNear Optimal/Above Optimal LDL: 110- 129 mg/dLBorderline High LDL: 130-159 mg/dLHigh LDL: 160-189 mg/dLVery High LDL: greater than or equal to 190 mg/dL HDL Cholesterol 33(L) >40 mg/dL [facility] Comment:Desirable HDL: great er than 40 mg/dL Note: This HDL assay may give artificially low results in patients with liver disease. Blood Venous blood specimen / Unknown 09/05/2024 8:35 AM EST 09/05/2024 11:23 AM EST Shanda Rg FIELD ASSEMBLY SUPERVISOR LAB BLOOD ORDERABLES Final Resu lt [facility] [address] [place] [address] [phone] * (ABNORMAL) Basic Metabolic Panel (09/05/2024 8:35 AM EST) Sodium 141 135 - 145 mmol/L [facility] Potassium 4.3 3.3 - 5.1 mmol/L [facility] Chloride 105 96 - 108 mmol/L [facility] Carbon Dioxide 27 22 - 29 mmol/L [facility] Anion Gap 13 12 - 20 [facility] Urea Nitrogen (BUN) 35(H) 9 - 16 mg/dL [facility] Creatinine, Serum 1.19 0.5 - 1.4 mg/dL [facility] Estimated Glomerular Filt Rate >60 [facility] Comment:Chronic Kidney Disea se: Estimated GFR < 60 mL/min/[id number] Kidney Disease: Estimated GFR < 15 mL/min/1.73m2 Glucose 140(H) 60 - 115 mg/dL [facility] Calcium 9.3 8.4 - 10.2 mg/dL [facility] Blood Venous blood specimen / Unknown 09/05/2024 8:35 AM EST 09/05/2024 11:23 AM EST Result [facility] BLOOD ORDERABLES Final Resu lt Performing Organization Address City/[facility]/ZIP Co de Phone Number [facility] [address] [place] [address] [phone] * (ABNORMAL) POCT HGB A1C (09/04/2024 2:37 PM EST) Hemoglobin A1C 6.3(A) 4.0 - 6.0 % QC Media Lot # [id number] Lot# Expiration Date [id number] Blood 09/04/2024 2:37 PM EST [facility] POINT OF CARE TEST ENTER/EDIT O RDERABLES Final Result * POCT Glucose (09/04/2024 2:33 PM EST) Glucose Blood, POC 105 60 - 200 mg/dL QC Media Lot # [id number] Lot# Expiration Date 53,025 Blood Capillary blood specimen / Unknown 09/04/2024 2:33 PM EST Result [facility] POINT OF CARE TEST ENTER/EDIT O RDERABLES Final Result * Hepatitis C Antibody with Reflex to HCV, RNA, Quantitative, Real-Time PCR (11/09/2023 3:25 PM EDT) Hepatitis C Antibody Nonreactive Nonreactive [facility] Comment:Antibodies to HCV no t detected; does not exclude early acuteHCV infection. Blood Venous blood specimen / Unknown 11/09/2023 3:25 PM EDT 11/09/2023 3:25 PM EDT Result [facility]anda [facility] BLOOD ORDERABLES Final Resu lt [facility] [address] [place] [address] [phone] * HIV-1/2 Antigen and Antibodies, Fourth Generation, with Reflexes (11/09/2023 3:25 PM EDT) HIV AB/AG Nonreactive Nonreactive [facility] Comment:HIV-1 p24 Ag and/or HIV-1/HIV-2 Ab not detected.A test result that is nonreactive does not exclude thepossibility of exposure to or infection with HIV-1 and/orHIV-2. Nonreactive results in this assay for individualswith prior exposure to HIV-1 and/or HIV-2 may be due toantigen and antibody levels that are below the limit ofdetection of this assay.The [employer] HIV Ag/Ab Combo assay result andsupplemental assay results should be interpreted inconjunction with the patient's clinical presentation,history and other laboratory results. If the results areinconsistent with clinical evidence, additional testing issuggested to confirm the result. Blood Venous blood specimen / Unknown 11/09/2023 3:25 PM EDT 11/09/2023 3:25 PM EDT Shanda Rg NP LAB BLOOD ORDERABLES Final Resu lt [facility] [address] [place] [address] [phone] * Colonoscopy (07/12/2021) Colonoscopy normal Historical Provider HEALTH MAINTENANCE Edited Result - Final from Last 3 Months or Most Recently Relevant to Health Maintenance Insurance [facility] [address] [place], [place] Care Teams Electronics Detail Draftsperson Relationship Specialty Start Date End Date Shanda Rg NP [address] [place] [address] PCP - General Family Medicine 06/06/23 Jas Cordero FNP [address] [place] [address] Nurse Practitioner Family Medicine 07/24/23 Aixa Ng Rn CardiovascularCalender Roll Press Operator 09/11/23
--- OUTSIDE RECORDS SUMMARY | 2024-11-27 17:10 | XMS_ITS | Encounter Summary ---
Author Organization [employer] [facility] Address [address] [place] [address] [address] [place] [address] Care Team Providers Care Chemist Enzymes Name Role Phone Jada Erickson HYDRO OPERATOR Primary Care Provider [phone] Shanda Rg NP Primary Care Provider [phone] Jas Cordero HYDRO OPERATOR Unavailable Unavailable Reason for Visit * Reason Comments Med Refill Encounter Details Date Type Department Care Team (Late st Contact Info) Description 05/30/2023 Refill [facility] [address] [place] [address] Jada Erickson FNP [address] [place] [address] Dept [place] [address] Pain; Cervical radiculopathy; Lumbar radiculopathy Social History [...] Description 01/01/2025 9:30 AM EDT Office Visit [facility] [address] [place] [address] Shanda Rg NP [address] [place] [address] 01/30/2025 1:00 PM EDT Clinical Support [facility] [address] [place] [address] Cait Velazquez RN documented as of this encounter Visit Diagnoses Diagnosis Pain Generalized pain Cervical radiculopathy Brachial neuritis or radiculitis nos Lumbar radiculopathy Thoracic or lumbosacral neuritis or radiculitis, unspecified documented in this encounter Additional Health Concerns Assessment Noted Time PHQ-9 Depression Total Score: 0 04/13/20 9:39 AM EDT documented as of this encounter Care Teams Chemist Enzymes Relationship Specialty Start Date End Date Jada Erickson FNP PCP - General Family Medicine 10/27/22 06/05/23 [place] [address] PCP - General Family Medicine 06/06/23 Jas Cordero FNP [address] [place] [phone] Nurse Practitioner Family Medicine 07/24/23 Aixa Ng Bacteriologist FoodInterventional Radiology Tech 09/11/23 documented as of this encounter
--- OUTSIDE RECORDS SUMMARY | 2024-11-27 17:10 | XMS_ITS | Encounter Summary ---
Author Organization [employer] Address [address] [place] [address] 7 [place] [address] Care Team Providers Care Home Hospice Aide Name Role Phone Shanda Rg NP Primary Care Provider [phone] Jas Cordero Unavailable Unavailable Reason for Visit * Reason Comments Med Refill Encounter Details Date Type Department Care Team (Late st Contact Info) Description 09/22/2023 Refill [facility] [address] [place] [address] Carrie Shrestha MD [address] [place] [address] Seasonal allergic rhinitis, unspecified trigger Social History [...] Description 01/01/2025 9:30 AM EDT Office Visit [facility] [address] [place] [phone] Shanda Rg NP [address] [place] [phone] 01/30/2025 1:00 PM EDT Clinical Support [facility] [address] [place] [address] Cait Velazquez RN documented as of this encounter Visit Diagnoses Diagnosis Seasonal allergic rhinitis, unspecified trigger documented in this encounter Additional Health Concerns Assessment Noted Time PHQ-9 Depression Total Score: 4 08/01/20 23 11:20 AM EST documented as of this encounter Care Teams Home Hospice Aide Relationship Specialty Start Date End Date Shanda Rg NP [address] [place] [address] PCP - General Family Medicine 06/06/23 Jas Cordero FNP [address] [place] [address] Nurse Practitioner Family Medicine 07/24/23 Aixa Ng Silk ConditionerSolvent Plant Treater 09/11/23 documented as of this encounter
--- OUTSIDE RECORDS SUMMARY | 2024-11-27 17:10 | XMS_ITS | Clinical Summary ---
Author Organization Unknown Care Team Providers Care Type Rolling Machine Operator Name Role Phone TERRELL ARENAS, JAMILA Unavailable Unavailable RAYO AYALA, RAFI Unavailable Unavailable Payers Payer Name Policy Type Policy Number Effective Date Expira tion Date MEDICAID [facility] [address] [id number] Problems Condition Name Condition Details Condition Category [...] 2023-08 00:00: 00 09-23 23:59 :00 No [id number] 1 tablet EVERY AM 1 tablet EVERY AM (route: oral) Med Classific ation: Cardiovas cular Therapy Agents aripiprazol e 20 mg tablet 2023-08 00:00: 00 09-23 23:59 :00 No [id number] 1 tablet BEDTIME 1 tablet BEDTIME (route: oral) Med Classific ation: Central Nervous System Agents atorvastati n 80 mg tablet 2023-08 00:00: 00 09-23 23:59 :00 No [id number] 1 tablet BEDTIME 1 tablet BEDTIME (route: oral) Med Classific ation: Cardiovas cular Therapy Agents buspirone 30 mg tablet 2023-08 00:00: 00 09-23 23:59 :00 No [id number] 1 tablet 3 TIMES DAILY 1 tablet 3 TIMES DAILY (route: oral) Med Classific ation: Central Nervous System Agents cetirizine 10 mg tablet 2023-08 00:00: 00 09-23 23:59 :00 No [id number] 1 tablet EVERY AM 1 tablet EVERY AM (route: oral) Med Classific ation: Respirato ry Therapy Agents eszopiclone 3 mg tablet 2023-08 00:00: 00 09-23 23:59 :00 No [id number] 1 tablet BEDTIME 1 tablet BEDTIME (route: oral) Med Classific ation: Central Nervous System Agents folic acid 1 mg tablet 2023-08 00:00: 00 09-23 23:59 :00 No [id number] 1 tablet EVERY AM 1 tablet EVERY AM (route: oral) Med Classific ation: Electroly te Balance-N utritiona l Products furosemide 20 mg tablet 2023-08 00:00: 00 09-23 23:59 :00 No [id number] 1 tablet EVERY AM 1 tablet EVERY AM (route: oral) Med Classific ation: Cardiovas cular Therapy Agents gabapentin 300 mg capsule 2023-08 00:00: 00 09-23 23:59 :00 No [id number] 1 capsule 2 TIMES DAILY 1 capsule 2 TIMES DAILY (route: oral) Med Classific ation: Central Nervous System Agents gabapentin 300 mg capsule 2023-08 00:00: 00 09-23 23:59 :00 No [id number] 2 capsule BEDTIME 2 capsule BEDTIME (route: oral) Med Classific ation: Central Nervous System Agents losartan 100 mg-hydrochl orothiazide 12.5 mg tablet 2023-08 00:00: 00 09-23 23:59 :00 No [id number] 1 tablet EVERY AM 1 tablet EVERY AM (route: oral) Med Classific ation: Cardiovas cular Therapy Agents metformin 500 mg tablet 2023-08 00:00: 00 09-23 23:59 :00 No [id number] 1 tablet EVERY AM 1 tablet EVERY AM (route: oral) Med Classific ation: Endocrine metoprolol tartrate 100 mg tablet 2023-08 00:00: 00 09-23 23:59 :00 No [id number] 1 tablet 2 TIMES DAILY 1 tablet 2 TIMES DAILY (route: oral) Med Classific ation: Cardiovas cular Therapy Agents mirtazapine 15 mg tablet 2023-08 00:00: 00 09-23 23:59 :00 No [id number] 0.5 tablet BEDTIME 0.5 tablet BEDTIME (route: oral) Med Classific ation: Central Nervous System Agents Risperdal 0.5 mg tablet 2023-08 00:00: 00 09-23 23:59 :00 No [id number] 1 tablet BEDTIME 1 tablet BEDTIME (route: oral) Med Classific ation: Central Nervous System Agents ropinirole 0.5 mg tablet 2023-08 00:00: 00 09-23 23:59 :00 No [id number] 2 tablet 2 TIMES DAILY 2 tablet 2 TIMES DAILY (route: oral) Med Classific ation: Central Nervous System Agents venlafaxine ER 150 mg capsule,ext ended release 24 hr 2023-08 00:00: 00 09-23 23:59 :00 No [id number] 1 capsule DAILY 1 capsule DAILY (route: oral) Med Classific ation: Central Nervous System Agents Vitamin D3 50 mcg (2,000 unit) capsule 2023-08 00:00: 00 09-23 23:59 :00 No [id number] 1 capsule EVERY AM 1 capsule EVERY AM (route: oral) Med Classific ation: Electroly te Balance-N utritiona l Products amlodipine 5 mg tablet 09-29 00:00: 00 Yes [id number] 1 tablet DAILY 1 tablet DAILY (route: oral) Med Classific ation: Cardiovas cular Therapy Agents atorvastati n 80 mg tablet 2- 00:00: 00 Yes [id number] 1 tablet BEDTIME 1 tablet BEDTIME (route: oral) Med Classific ation: Cardiovas cular Therapy Agents folic acid 1 mg tablet 2- 00:00: 00 Yes [id number] 1 tablet DAILY 1 tablet DAILY (route: oral) Med Classific ation: Electroly te Balance-N utritiona l Products furosemide 20 mg tablet 2- 00:00: 00 Yes [id number] 1 tablet DAILY 1 tablet DAILY (route: oral) Med Classific ation: Cardiovas cular Therapy Agents gabapentin 300 mg capsule 2- 00:00: 00 Yes [id number] 1 capsule 2 TIMES DAILY 1 capsule 2 TIMES DAILY (route: oral) Med Classific ation: Central Nervous System Agents gabapentin 300 mg capsule - 00:00: 00 Yes [id number] 2 capsule BEDTIME 2 capsule BEDTIME (route: oral) Med Classific ation: Central Nervous System Agents losartan 100 mg tablet 2- 00:00: 00 Yes [id number] 1 tablet DAILY 1 tablet DAILY (route: oral) Med Classific ation: Cardiovas cular Therapy Agents metformin 500 mg tablet 2- 00:00: 00 Yes [id number] 1 tablet EVERY AM 1 tablet EVERY AM (route: oral) Med Classific ation: Endocrine metoprolol tartrate 100 mg tablet 2- 00:00: 00 Yes [id number] 1 tablet 2 TIMES DAILY 1 tablet 2 TIMES DAILY (route: oral) Med Classific ation: Cardiovas cular Therapy Agents venlafaxine 75 mg tablet - 00:00: 00 Yes [id number] 1 tablet DAILY 1 tablet DAILY (route: oral) Med Classific ation: Central Nervous System Agents venlafaxine ER 150 mg tablet,exte nded release 24 hr 09-29 00:00: 00 Yes [id number] 1 tablet DAILY 1 tablet DAILY (route: oral) Med Classific ation: Central Nervous System Agents Vitamin D3 50 mcg (2,000 unit) capsule 2- 00:00: 00 Yes [id number] 1 capsule DAILY 1 capsule DAILY (route: oral) Med Classific ation: Electroly te Balance-N utritiona l Products zolpidem 10 mg tablet 2- 00:00: 00 Yes [id number] .5 tablet BEDTIME .5 tablet BEDTIME (route: oral) Med Classific ation: Central Nervous System Agents Abilify 15 mg tablet 2- 00:00: 00 Yes [id number] 1 tablet DAILY 1 tablet DAILY (route: oral) Med Classific ation: Central Nervous System Agents cetirizine 10 mg tablet 2- 00:00: 00 Yes [id number] 1 tablet DAILY 1 tablet DAILY (route: oral) Med Classific ation: Respirato ry Therapy Agents ropinirole 0.5 mg tablet 09-29 00:00: 00 Yes [id number] 1 tablet BEDTIME 1 tablet BEDTIME (route: oral) Med Classific ation: Central Nervous System Agents Senna Laxative 8.6 mg tablet - 00:00: 00 Yes [id number] 1 tablet BEDTIME 1 tablet BEDTIME (route: oral) Med Classific ation: Gastroint estinal Therapy Agents tramadol 50 mg tablet 09-29 00:00: 00 Yes [id number] 2 tablet EVERY 12 HOURS 2 tablet EVERY 12 HOURS (route: oral) Med Classific ation: Analgesic , Anti-infl ammatory or Antipyret ic buspirone 15 mg tablet 10-26 00:00: 00 Yes [id number] 1 tablet 3 TIMES DAILY 1 tablet 3 TIMES DAILY (route: oral) Med Classific ation: Central Nervous System Agents mirtazapine 7.5 mg tablet 10-26 00:00: 00 Yes [id number] 1 tablet BEDTIME 1 tablet BEDTIME (route: oral) Med Classific ation: Central Nervous System Agents risperidone 1 mg tablet 10-26 00:00: 00 Yes [id number] 1 tablet BEDTIME 1 tablet BEDTIME (route: oral) Med Classific ation: Central Nervous System Agents Vital Signs Vital Name Observation Time Observation Value Commen ts Temperature 2024-11-23 15:21:00.000 97.6 [degF] Temperature 2024-11-16 13:03:00.000 97.8 [degF] Temperature 2024-11-09 13:37:00.000 97.6 [degF] Temperature 2024-10-26 15:06:00.000 97.6 [degF] Temperature 2024-10-19 15:26:00.000 97.8 [degF] Temperature 2024-10-12 13:54:00.000 97.3 [degF] Temperature 2024-10-05 13:34:00.000 97.8 [degF] Temperature 2024-09-29 15:56:00.000 97 [degF] BMI (%) 2024-09-29 15:56:00.000 34 kg/m2 Height 2024-09-29 15:56:00.000 66 [in_us] Pulse 2024-11-23 15:21:00.000 88 /min Pulse 2024-11-16 13:03:00.000 103 /min Pulse 2024-11-09 13:37:00.000 115 /min Pulse 2024-11-02 13:14:00.000 114 /min Pulse 2024-10-26 15:06:00.000 111 /min Pulse 2024-10-19 15:26:00.000 86 /min Pulse 2024-10-12 13:54:00.000 78 /min Pulse 2024-10-05 13:34:00.000 81 /min Pulse 2024-09-29 15:56:00.000 96 /min O2 Saturation (%) 2024-11-23 15:21:00.000 98 % O2 Saturation (%) 2024-11-02 13:18:00.000 97 % O2 Saturation (%) 2024-10-26 15:07:00.000 96 % O2 Saturation (%) 2024-10-19 15:27:00.000 97 % O2 Saturation (%) 2024-10-12 13:54:00.000 97 % Respirations 2024-11-23 15:21:00.000 16 /min Respirations 2024-11-16 13:03:00.000 16 /min Respirations 2024-11-09 13:37:00.000 16 /min Respirations 2024-11-02 13:14:00.000 16 /min Respirations 2024-10-26 15:06:00.000 16 /min Respirations 2024-10-19 15:26:00.000 16 /min Respirations 2024-10-12 13:54:00.000 16 /min Respirations 2024-10-05 13:34:00.000 16 /min Respirations 2024-09-29 15:56:00.000 18 /min Weight (lbs) 2024-09-29 15:56:00.000 214 [lb_av] Systolic Blood Pressure 2024-11-23 15:21:00.000 130 mm [Hg] Systolic Blood Pressure 2024-11-16 13:03:00.000 150 mm [Hg] Systolic Blood Pressure 2024-11-09 13:37:00.000 138 mm [Hg] Systolic Blood Pressure 2024-11-02 13:14:00.000 130 mm [Hg] Systolic Blood Pressure 2024-10-26 15:06:00.000 122 mm [Hg] Systolic Blood Pressure 2024-10-19 15:26:00.000 128 mm [Hg] Systolic Blood Pressure 2024-10-12 13:55:00.000 130 mm [Hg] Systolic Blood Pressure 2024-10-05 13:34:00.000 120 mm [Hg] Systolic Blood Pressure 2024-09-29 15:56:00.000 155 mm [Hg] Diastolic Blood Pressure 2024-11-23 15:21:00.000 70 mm [Hg] Diastolic Blood Pressure 2024-11-16 13:03:00.000 90 mm [Hg] Diastolic Blood Pressure 2024-11-09 13:37:00.000 [...] AWARENESS FOR SAFETY AND WILL NOTIFY CLINICAL ART EDITOR AND PHYSICIAN/PROVIDER WITH ANY CHANGE IN CONDITION. [code = SKILLED NURSE WILL MAINTAIN SITUATIONAL AWARENESS FOR SAFETY AND WILL NOTIFY CLINICAL ART EDITOR AND PHYSICIAN/PROVIDER WITH ANY CHANGE IN CONDITION.] [...] Patient Goal - NO HOSPITALIZ ATION Goal 2024-11-23 Patient Goal - NO HOSPITALIZ ATION Goal Provider Goal - A PLAN OF CARE WILL BE ESTABLISHED THAT MEETS PATIENT'S [facility] NEEDS AND INCLUDES PATIENT GOAL FOR HOME [...] Notes <paragraph>[Visit Date: 2024 by RAFI CADE RN]:</paragraph><paragraph>10/27/24- RECERT VISIT- PATIENT IS A 59 YEAR OLD MALE RECEIVING WEEKLY [facility] VISITS TO ASSESS MENTAL HEALTH STATUS, SAFETY, MEDICATION COMPLIANCE, CVP, DIABETIC STATUS AND PAIN MANAGEMENT. PAST MEDICAL HISTORY INCLUDES, MAJOR DEPRESSION, ANXIETY, PANIC ATTACKS, PTSD, HYPERTENSION, HYPERCHOLESTEROL, OBESITY, DDD LUMBAR AREA, CERVICAL RETICULOPATHY, PREDIABETES, SLEEP APNEA, AND INSOMNIA. 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 PATIENT CONTINUES TO SUFFER FROM CHRONIC LOW BACK AMD TAKES TRAMADOL WITH FAIR RELIEF NO HOSPITALIZATION OR ER VISITS OCCURRED IN THE PAST 60 DAYS. CARDIOLOGY 12/19/24 @ 1:30PM [facility] [address] [facility] [phone] GI - 2:30PM</paragraph> Encounters Start Date/Time End Date/Time Encounter Type Admission Type Attending [facility] Facility Care Department Encounter ID Discharge Date Discharge Status Discharge Condition Discharge Reason Percent Goals Met 2024-09-29 00:00:00 2024-11-27 00:00:00 Outpatient RAFI PATEL [facility] [id number] 14.8 1
--- OUTSIDE RECORDS SUMMARY | 2024-11-27 17:10 | XMS_ITS | Encounter Summary ---
Author Organization [employer] Address [address] [place] [address] [address] [place] [address] Care Team Providers Care Cold Mill Operator Name Role Phone Shanda Rg NP Primary Care Provider [phone] Jas Cordero Unavailable Unavailable Encounter Details Date Type Department Care Team ([facility] st Contact Info) Description 10/22/2024 Telephone [facility] [address] [place], [place] [phone] Shanda Rg NP [address] [place] [address] Social History Tobacco Use Types Packs/Day Years [...] Description 01/01/2025 9:30 AM EDT Office Visit [address] [address] Shanda Rg NP [address] [place] [address] 01/30/2025 1:00 PM EDT Clinical Support [address] [address] Cait Velazquez RN documented as of this encounter Visit Diagnoses Not on filedocumented in this encounter Additional Health Concerns Assessment Noted Time PHQ-9 Depression Total Score: 23 025 2:34 PM EST documented as of this encounter Care Teams Cold Mill Operator Relationship Specialty Start Date End Date Shanda Rg NP [address] [place] [address] PCP - General Family Medicine 06/06/23 Jas Cordero FNP [address] [place] [address] Nurse Practitioner Family Medicine 07/24/23 Aixa Ng Unit Control ClerkCar Electronics Installer 09/11/23 documented as of this encounter
--- OUTSIDE RECORDS SUMMARY | 2024-11-27 17:10 | XMS_ITS | Encounter Summary ---
Author Organization [employer] Address [address] [place] [address] 7 [place] [address] Care Team Providers Care Restorative Coordinator Name Role Phone Shanda Rg NP Primary Care Provider [phone] Jas Cordero Unavailable Unavailable Reason for Visit * Reason Comments Med Refill Encounter Details Date Type Department Care Team (Late st Contact Info) Description 09/09/2023 Refill [facility] MEDICINE [address] [place] [address] Name, MD Jerardo 230 [place] [address] Radiculopathy, cervical region Social History Tobacco Use [...] 9:30 AM EDT Office Visit [facility] MEDICINE [address] [place] [address] Shanda Rg NP [address] [place] [address] 01/30/2025 1:00 PM EDT Clinical Support [facility] MEDICINE [address] [place] [address] Cait Velazquez RN documented as of this encounter Visit Diagnoses Diagnosis Radiculopathy, cervical region Brachial neuritis or radiculitis nos documented in this encounter Additional Health Concerns Assessment Noted Time PHQ-9 Depression Total Score: 4 08/01/20 23 11:20 AM EST documented as of this encounter Care Teams Restorative Coordinator Relationship Specialty Start Date End Date Shanda Rg NP [address] [place] [address] PCP - General Family Medicine 06/06/23 Jas Cordero FNP [address] [place] [address] Nurse Practitioner Family Medicine 07/24/23 Aixa Ng Job Development SpecialistRegional Sales Director 09/11/23 documented as of this encounter
--- OUTSIDE RECORDS SUMMARY | 2024-11-27 17:10 | XMS_ITS | Encounter Summary ---
Author Organization [employer] Address [address] [place] [address] 7 [place] [address] Care Team Providers Care Asset Protection Associate Name Role Phone Shanda Rg NP Primary Care Provider [phone] Jas Cordero Unavailable Unavailable Reason for Visit * Reason Onset Date Comments Appointment Request 09/25/2023 Encounter Details Date Type Department Care Team ([facility] st Contact Info) Description 09/25/2023 Telephone [facility] MEDICINE 230 [place] [address] Shanda Rg NP [address] [place], [place] [phone] Appointment Request Social History Tobacco Use Types [...] regarding existing conditions. Please contact pt at [phone]. Belarusian speaking documented in this encounter Plan of Treatment Upcoming Encounters Date Type Department Care Team ([facility] st Contact Info) Description 01/01/2025 9:30 AM EDT Office Visit [facility] MEDICINE [address] [place] [address] Shanda Rg NP [address] [place] [address] 01/30/2025 1:00 PM EDT Clinical Support [facility] [address] [place] [address] Cait Velazquez RN documented as of this encounter Visit Diagnoses Not on filedocumented in this encounter Additional Health Concerns Assessment Noted Time PHQ-9 Depression Total Score: 4 08/01/20 23 11:20 AM EST documented as of this encounter Care Teams Asset Protection Associate Relationship Specialty Start Date End Date Shanda Rg NP [address] [place] [address] PCP - General Family Medicine 06/06/23 Jas Cordero FNP [address] [place] [address] Nurse Practitioner Family Medicine 07/24/23 Aixa Ng Division Toll Wire ChiefCurriculum Designer 09/11/23 documented as of this encounter
--- OUTSIDE RECORDS SUMMARY | 2024-11-27 17:10 | XMS_ITS | Encounter Summary ---
Author Organization [employer] Address [address] [place] [address] 7 [place] [address] Care Team Providers Care Breakdown Mill Operator Name Role Phone Shanda Rg NP Primary Care Provider [phone] Jas Cordero Unavailable Unavailable Reason for Visit * Reason Comments Med Refill Encounter Details Date Type Department Care Team ([facility] st Contact Info) Description 06/08/2023 Refill [facility] MEDICINE [address] [place] [address] Jada Erickson FNP [address] [place] [address] Dept [place] [address] Seasonal allergic rhinitis, unspecified trigger Social History [...] Office Visit [facility] MEDICINE [address] [place] [address] Shanda Rg NP [address] [place] [address] 01/30/2025 1:00 PM EDT Clinical Support [facility] MEDICINE [address] [place] [address] Cait Velazquez RN documented as of this encounter Visit Diagnoses Diagnosis Seasonal allergic rhinitis, unspecified trigger documented in this encounter Additional Health Concerns Assessment Noted Time PHQ-9 Depression Total Score: 10 023 9:23 AM EDT documented as of this encounter Care Teams Breakdown Mill Operator Relationship Specialty Start Date End Date Shanda Rg NP [address] [place] [address] PCP - General Family Medicine 06/06/23 Jas Cordero FNP [address] [place] [address] Nurse Practitioner Family Medicine 07/24/23 [employer] Support RepresentativeBookkeeper Assistant 09/11/23 documented as of this encounter
--- OUTSIDE RECORDS SUMMARY | 2024-11-27 17:10 | XMS_ITS | Encounter Summary ---
Author Organization [facility] Address [address] [place] [address] 7t [place] [address] Care Team Providers Care Green Promotions Specialist Name Role Phone Jada Erickson RACE STARTER Primary Care Provider [phone] Shanda Rg NP Primary Care Provider [phone] Jas Cordero RACE STARTER Unavailable Unavailable Reason for Visit * Reason Comments Med Refill Encounter Details Date Type Department Care Team (Late st Contact Info) Description 05/30/2023 Refill [facility] MEDICINE [address] [place] [address] Jada Erickson FNP [address] [place] [address] Dept [place] [address] Pain; Cervical radiculopathy; Lumbar radiculopathy Social History [...] Description 01/01/2025 9:30 AM EDT Office Visit [facility] MEDICINE [address] [place] [address] Shanda Rg NP [address] [place] [address] 01/30/2025 1:00 PM EDT Clinical Support [facility] MEDICINE [address] [place] [address] Cait Velazquez RN documented as of this encounter Visit Diagnoses Diagnosis Pain Generalized pain Cervical radiculopathy Brachial neuritis or radiculitis nos Lumbar radiculopathy Thoracic or lumbosacral neuritis or radiculitis, unspecified documented in this encounter Additional Health Concerns Assessment Noted Time PHQ-9 Depression Total Score: 0 04/13/20 9:39 AM EDT documented as of this encounter Care Teams Green Promotions Specialist Relationship Specialty Start Date End Date Jada Erickson FNP PCP - General Family Medicine 10/27/22 06/05/23 [place] [address] PCP - General Family Medicine 06/06/23 Jas Cordero FNP [address] [place] [address] Nurse Practitioner Family Medicine 07/24/23 Aixa Ng Sales Recruiting CoordinatorMortgage Coordinator 09/11/23 documented as of this encounter
--- OUTSIDE RECORDS SUMMARY | 2024-11-27 17:10 | XMS_ITS | Clinical Summary ---
Author Organization Unknown Care Team Providers Care Leather Scrubber Name Role Phone TERRELL ARENAS, JAMILA Unavailable Unavailable RAYO AYALA, RAFI Unavailable Unavailable Payers Payer Name Policy Type Policy Number Effective Date Expira tion Date [facility] [id number] Problems Condition Name Condition Details Condition Category [...] 2023-08 00:00: 00 09-23 23:59 :00 No [id number] 1 tablet EVERY AM 1 tablet EVERY AM (route: oral) Med Classific ation: Cardiovas cular Therapy Agents aripiprazol e 20 mg tablet 2023-08 00:00: 00 09-23 23:59 :00 No [id number] 1 tablet BEDTIME 1 tablet BEDTIME (route: oral) Med Classific ation: Central Nervous System Agents atorvastati n 80 mg tablet 2023-08 00:00: 00 09-23 23:59 :00 No [id number] 1 tablet BEDTIME 1 tablet BEDTIME (route: oral) Med Classific ation: Cardiovas cular Therapy Agents buspirone 30 mg tablet 2023-08 00:00: 00 09-23 23:59 :00 No [id number] 1 tablet 3 TIMES DAILY 1 tablet 3 TIMES DAILY (route: oral) Med Classific ation: Central Nervous System Agents cetirizine 10 mg tablet 2023-08 00:00: 00 09-23 23:59 :00 No [id number] 1 tablet EVERY AM 1 tablet EVERY AM (route: oral) Med Classific ation: Respirato ry Therapy Agents eszopiclone 3 mg tablet 2023-08 00:00: 00 09-23 23:59 :00 No [id number] 1 tablet BEDTIME 1 tablet BEDTIME (route: oral) Med Classific ation: Central Nervous System Agents folic acid 1 mg tablet 2023-08 00:00: 00 09-23 23:59 :00 No [id number] 1 tablet EVERY AM 1 tablet EVERY AM (route: oral) Med Classific ation: Electroly te Balance-N utritiona l Products furosemide 20 mg tablet 2023-08 00:00: 00 09-23 23:59 :00 No [id number] 1 tablet EVERY AM 1 tablet EVERY AM (route: oral) Med Classific ation: Cardiovas cular Therapy Agents gabapentin 300 mg capsule 2023-08 00:00: 00 09-23 23:59 :00 No [id number] 1 capsule 2 TIMES DAILY 1 capsule 2 TIMES DAILY (route: oral) Med Classific ation: Central Nervous System Agents gabapentin 300 mg capsule 2023-08 00:00: 00 09-23 23:59 :00 No [id number] 2 capsule BEDTIME 2 capsule BEDTIME (route: oral) Med Classific ation: Central Nervous System Agents losartan 100 mg-hydrochl orothiazide 12.5 mg tablet 2023-08 00:00: 00 09-23 23:59 :00 No [id number] 1 tablet EVERY AM 1 tablet EVERY AM (route: oral) Med Classific ation: Cardiovas cular Therapy Agents metformin 500 mg tablet 2023-08 00:00: 00 09-23 23:59 :00 No [id number] 1 tablet EVERY AM 1 tablet EVERY AM (route: oral) Med Classific ation: Endocrine metoprolol tartrate 100 mg tablet 2023-08 00:00: 00 09-23 23:59 :00 No [id number] 1 tablet 2 TIMES DAILY 1 tablet 2 TIMES DAILY (route: oral) Med Classific ation: Cardiovas cular Therapy Agents mirtazapine 15 mg tablet 2023-08 00:00: 00 09-23 23:59 :00 No [id number] 0.5 tablet BEDTIME 0.5 tablet BEDTIME (route: oral) Med Classific ation: Central Nervous System Agents Risperdal 0.5 mg tablet 2023-08 00:00: 00 09-23 23:59 :00 No [id number] 1 tablet BEDTIME 1 tablet BEDTIME (route: oral) Med Classific ation: Central Nervous System Agents ropinirole 0.5 mg tablet 2023-08 00:00: 00 09-23 23:59 :00 No [id number] 2 tablet 2 TIMES DAILY 2 tablet 2 TIMES DAILY (route: oral) Med Classific ation: Central Nervous System Agents venlafaxine ER 150 mg capsule,ext ended release 24 hr 2023-08 00:00: 00 09-23 23:59 :00 No [id number] 1 capsule DAILY 1 capsule DAILY (route: oral) Med Classific ation: Central Nervous System Agents Vitamin D3 50 mcg (2,000 unit) capsule 2023-08 00:00: 00 09-23 23:59 :00 No [id number] 1 capsule EVERY AM 1 capsule EVERY AM (route: oral) Med Classific ation: Electroly te Balance-N utritiona l Products amlodipine 5 mg tablet 09-29 00:00: 00 Yes [id number] 1 tablet DAILY 1 tablet DAILY (route: oral) Med Classific ation: Cardiovas cular Therapy Agents atorvastati n 80 mg tablet 2- 00:00: 00 Yes [id number] 1 tablet BEDTIME 1 tablet BEDTIME (route: oral) Med Classific ation: Cardiovas cular Therapy Agents folic acid 1 mg tablet 2- 00:00: 00 Yes [id number] 1 tablet DAILY 1 tablet DAILY (route: oral) Med Classific ation: Electroly te Balance-N utritiona l Products furosemide 20 mg tablet 2- 00:00: 00 Yes [id number] 1 tablet DAILY 1 tablet DAILY (route: oral) Med Classific ation: Cardiovas cular Therapy Agents gabapentin 300 mg capsule 2- 00:00: 00 Yes [id number] 1 capsule 2 TIMES DAILY 1 capsule 2 TIMES DAILY (route: oral) Med Classific ation: Central Nervous System Agents gabapentin 300 mg capsule - 00:00: 00 Yes [id number] 2 capsule BEDTIME 2 capsule BEDTIME (route: oral) Med Classific ation: Central Nervous System Agents losartan 100 mg tablet 2- 00:00: 00 Yes [id number] 1 tablet DAILY 1 tablet DAILY (route: oral) Med Classific ation: Cardiovas cular Therapy Agents metformin 500 mg tablet 2- 00:00: 00 Yes [id number] 1 tablet EVERY AM 1 tablet EVERY AM (route: oral) Med Classific ation: Endocrine metoprolol tartrate 100 mg tablet 2- 00:00: 00 Yes [id number] 1 tablet 2 TIMES DAILY 1 tablet 2 TIMES DAILY (route: oral) Med Classific ation: Cardiovas cular Therapy Agents venlafaxine 75 mg tablet - 00:00: 00 Yes [id number] 1 tablet DAILY 1 tablet DAILY (route: oral) Med Classific ation: Central Nervous System Agents venlafaxine ER 150 mg tablet,exte nded release 24 hr 09-29 00:00: 00 Yes [id number] 1 tablet DAILY 1 tablet DAILY (route: oral) Med Classific ation: Central Nervous System Agents Vitamin D3 50 mcg (2,000 unit) capsule 2- 00:00: 00 Yes [id number] 1 capsule DAILY 1 capsule DAILY (route: oral) Med Classific ation: Electroly te Balance-N utritiona l Products zolpidem 10 mg tablet 2- 00:00: 00 Yes [id number] .5 tablet BEDTIME .5 tablet BEDTIME (route: oral) Med Classific ation: Central Nervous System Agents Abilify 15 mg tablet 2- 00:00: 00 Yes [id number] 1 tablet DAILY 1 tablet DAILY (route: oral) Med Classific ation: Central Nervous System Agents cetirizine 10 mg tablet 2- 00:00: 00 Yes [id number] 1 tablet DAILY 1 tablet DAILY (route: oral) Med Classific ation: Respirato ry Therapy Agents ropinirole 0.5 mg tablet 09-29 00:00: 00 Yes [id number] 1 tablet BEDTIME 1 tablet BEDTIME (route: oral) Med Classific ation: Central Nervous System Agents Senna Laxative 8.6 mg tablet - 00:00: 00 Yes [id number] 1 tablet BEDTIME 1 tablet BEDTIME (route: oral) Med Classific ation: Gastroint estinal Therapy Agents tramadol 50 mg tablet 09-29 00:00: 00 Yes [id number] 2 tablet EVERY 12 HOURS 2 tablet EVERY 12 HOURS (route: oral) Med Classific ation: Analgesic , Anti-infl ammatory or Antipyret ic buspirone 15 mg tablet 10-26 00:00: 00 Yes [id number] 1 tablet 3 TIMES DAILY 1 tablet 3 TIMES DAILY (route: oral) Med Classific ation: Central Nervous System Agents mirtazapine 7.5 mg tablet 10-26 00:00: 00 Yes [id number] 1 tablet BEDTIME 1 tablet BEDTIME (route: oral) Med Classific ation: Central Nervous System Agents risperidone 1 mg tablet 10-26 00:00: 00 Yes [id number] 1 tablet BEDTIME 1 tablet BEDTIME (route: [...] AWARENESS FOR SAFETY AND WILL NOTIFY CLINICAL ENVIRONMENTAL COMPLIANCE ENGINEER AND PHYSICIAN/PROVIDER WITH ANY CHANGE IN CONDITION. [code = SKILLED NURSE WILL MAINTAIN SITUATIONAL AWARENESS FOR SAFETY AND WILL NOTIFY CLINICAL ENVIRONMENTAL COMPLIANCE ENGINEER AND PHYSICIAN/PROVIDER WITH ANY CHANGE IN CONDITION.] [...] CARE WILL BE ESTABLISHED THAT MEETS PATIENT'S FPC NEEDS AND INCLUDES PATIENT GOAL FOR HOME [...] A 59 YEAR OLD MALE RECEIVING WEEKLY FPC VISITS TO ASSESS MENTAL HEALTH STATUS, SAFETY, MEDICATION COMPLIANCE, CVP, DIABETIC STATUS AND PAIN MANAGEMENT. PAST MEDICAL HISTORY INCLUDES, MAJOR DEPRESSION, ANXIETY, PANIC ATTACKS, PTSD, HYPERTENSION, HYPERCHOLESTEROL, OBESITY, DDD LUMBAR AREA, CERVICAL RETICULOPATHY, PREDIABETES, SLEEP APNEA, AND INSOMNIA. 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 PATIENT CONTINUES TO SUFFER FROM CHRONIC LOW BACK AMD TAKES TRAMADOL WITH FAIR RELIEF NO HOSPITALIZATION OR ER VISITS OCCURRED IN THE PAST 60 DAYS. CARDIOLOGY 12/19/24 @ 1:30PM [facility] [phone] GI - 2:30PM</paragraph> Encounters Start Date/Time End Date/Time Encounter Type Admission Type Attending [facility] Facility Care Department Encounter ID Discharge Date Discharge Status Discharge Condition Discharge Reason Percent Goals Met 2024-09-29 00:00:00 2024-11-27 00:00:00 Outpatient [facility] [id number] 14.8 1
--- OUTSIDE RECORDS SUMMARY | 2024-11-27 17:10 | XMS_ITS | Encounter Summary ---
Author Organization [employer] Address [address] [place] [address] 7 [place] [address] Care Team Providers Care Blood Bank Technologist Name Role Phone Shanda Rg NP Primary Care Provider [phone] Jas Cordero Unavailable Unavailable Reason for Visit * Reason Comments Med Refill Encounter Details Date Type Department Care Team (Late st Contact Info) Description 08/01/2023 Refill [facility] MEDICINE [address] [place] [address] Lianet Mae FNP [address] [place] [address] Pain; Cervical radiculopathy; Lumbar radiculopathy Social History [...] 9:30 AM EDT Office Visit [facility] MEDICINE [address] [place] [address] Shanda Rg NP [address] [place] [address] 01/30/2025 1:00 PM EDT Clinical Support [facility] MEDICINE [address] [place] [address] Cait Velazquez RN documented as of this encounter Visit Diagnoses Diagnosis Pain Generalized pain Cervical radiculopathy Brachial neuritis or radiculitis nos Lumbar radiculopathy Thoracic or lumbosacral neuritis or radiculitis, unspecified documented in this encounter Additional Health Concerns Assessment Noted Time PHQ-9 Depression Total Score: 4 08/01/20 23 11:20 AM EST documented as of this encounter Care Teams Blood Bank Technologist Relationship Specialty Start Date End Date Shanda Rg NP [address] [place] [address] PCP - General Family Medicine 06/06/23 Jas Cordero FNP [address] [place] [address] Nurse Practitioner Family Medicine 07/24/23 Aixa Ng Formal Wear Rental ClerkDemand Planner 09/11/23 documented as of this encounter
--- OUTSIDE RECORDS SUMMARY | 2024-11-27 17:10 | XMS_ITS | Encounter Summary ---
Author Organization [employer] Address [address] [place] [address] 7t [place] [address] Care Team Providers Care Robotic Machine Tender Production Name Role Phone Shanda Rg NP Primary Care Provider [phone] Jas Cordero Unavailable Unavailable Encounter Details Date Type Department Care Team ([facility] st Contact Info) Description 07/12/2024 Telephone [facility] MEDICINE [address] [place], [place] [phone] Shanda Rg NP 230 [place] [address] Social History Tobacco Use Types Packs/Day Years [...] Description 01/01/2025 9:30 AM EDT Office Visit [facility] MEDICINE [address] [place] [address] Shanda Rg NP [address] [place] [address] 01/30/2025 1:00 PM EDT Clinical Support [address] [address] Cait Velazquez, LUCY documented as of this encounter Visit Diagnoses Not on filedocumented in this encounter Additional Health Concerns Assessment Noted Time PHQ-9 Depression Total Score: 9 01/30/20 24 9:09 AM EDT documented as of this encounter Care Teams Robotic Machine Tender Production Relationship Specialty Start Date End Date Shanda Rg NP [address] [place] [address] PCP - General Family Medicine 06/06/23 Jas Cordero FNP [address] [place] [address] Nurse Practitioner Family Medicine 07/24/23 Aixa Ng Terrazzo Finisher HelperPower Tool Repair Technician 09/11/23 documented as of this encounter
--- OUTSIDE RECORDS SUMMARY | 2024-11-27 17:11 | XMS_ITS | Encounter Summary ---
Author Organization [employer] Address [address] [place] [address] 7t [place] [address] Care Team Providers Care Countersinker Balance Screw Hole Name Role Phone Shanda Rg NP Primary Care Provider [phone] Jas Cordero Unavailable Unavailable Encounter Details Date Type Department Care Team ([facility] st Contact Info) Description 08/15/2024 Telephone [facility] MEDICINE 230 [place], [place] [phone] Shanda Rg NP [address] [place] [address] Social History Tobacco Use Types Packs/Day Years [...] Description 01/01/2025 9:30 AM EDT Office Visit [facility] MEDICINE [address] [place] [address] Shanda Rg NP [address] [place] [address] 01/30/2025 1:00 PM EDT Clinical Support [address] [address] Cait Velazquez, LUCY documented as of this encounter Visit Diagnoses Not on filedocumented in this encounter Additional Health Concerns Assessment Noted Time PHQ-9 Depression Total Score: 9 01/30/20 24 9:09 AM EDT documented as of this encounter Care Teams Countersinker Balance Screw Hole Relationship Specialty Start Date End Date Shanda Rg NP [address] [place] [address] PCP - General Family Medicine 06/06/23 Jas Cordero FNP [address] [place] [address] Nurse Practitioner Family Medicine 07/24/23 Aixa Ng Director Of Financial AidProof Clerk 09/11/23 documented as of this encounter
--- OUTSIDE RECORDS SUMMARY | 2024-11-27 17:11 | XMS_ITS | Encounter Summary ---
Author Organization [employer] [facility] Address [address] [place] [address] 7 [place] [address] Care Team Providers Care Flat Knitter Name Role Phone Carmen Faust MD Primary Care Provider Cali Lundberg Primary Care Provider Jada GomezP Primary Care Provider [phone] Shanda Rg NP Primary Care Provider [phone] Jas Cordero Unavailable Unavailable Reason for Visit * Reason Comments Med Refill Encounter Details Date Type Department Care Team ([facility] Contact Info) Description 09/01/2022 Refill [facility] MEDICINE [address] [place] [address] Jas Cordero FNP Social History Tobacco Use [...] Description 01/01/2025 9:30 AM EDT Office Visit [facility] MEDICINE [address] [place] [address] Shanda Rg NP 230 [place] [address] 01/30/2025 1:00 PM EDT Clinical Support [facility] MEDICINE [address] [place] [address] Cait Velazquez, RN documented as of this encounter Visit Diagnoses Not on filedocumented in this encounter Additional Health Concerns Assessment Noted Time PHQ-9 Depression Total Score: 12 022 9:34 AM EST documented as of this encounter Care Teams Flat Knitter Relationship Specialty Start Date End Date Carmen Faust MD PCP - General Family Medicine 02/17/20 09/20/22 Cali Steward FNP PCP - General Family Medicine 09/21/22 10/26/22 Jada Erickson FNP PCP - General Family Medicine 10/27/22 06/05/23 Shanda Rg NP [address] [place] [address] PCP - General Family Medicine 06/06/23 Jas Cordero FNP [address] [place] [address] Nurse Practitioner Family Medicine 07/24/23 Aixa Ng Computed Tomography TechnologistFilm Flat Inspector 09/11/23 documented as of this encounter
--- OUTSIDE RECORDS SUMMARY | 2024-11-27 17:11 | XMS_ITS | Encounter Summary ---
Author Organization [employer] Address [address] [place] [address] 7t [place] [address] Care Team Providers Care Chief Embalmer Name Role Phone Jada Erickson Primary Care Provider [phone] Shanda Rg NP Primary Care Provider [phone] Jas Cordero Unavailable Unavailable Reason for Visit * Reason Comments Med Refill Encounter Details Date Type Department Care Team (Late st Contact Info) Description 10/31/2022 Refill [facility] MED[facility]INE [address] [place] [address] Jas Cordero FNP Major depressive disorder with [...] 11/02/2022 11:52 AM EST FYI, Pt had CRIB CLERK RV today. Urine/Pill count WNL. Bp 152/108, stated he had taken his blood pressure medication this morning. documented in this encounter Plan of Treatment Upcoming Encounters Date Type Department Care Team (Late st Contact Info) Description 01/01/2025 9:30 AM EDT Office Visit [address] [address] Shanda Rg NP [address] [place] [address] 01/30/2025 1:00 PM EDT Clinical Support [address] [address] Cait Velazquez RN documented as of this encounter Visit Diagnoses Diagnosis Major depressive disorder with psychotic features (CMS/HCC) documented in this encounter Additional Health Concerns Assessment Noted Time PHQ-9 Depression Total Score: 9 09/27/19 23 9:22 AM EST documented as of this encounter Care Teams Chief Embalmer Relationship Specialty Start Date End Date Jada Erickson FNP PCP - General Family Medicine 10/27/22 06/05/23 Shanda Rg NP [address] [place] [address] PCP - General Family Medicine 06/06/23 Jas Cordero FNP [address] [place] [address] Nurse Practitioner Family Medicine 07/24/23 Aixa Ng Master Ocean YachtFlagger 09/11/23 documented as of this encounter
--- OUTSIDE RECORDS SUMMARY | 2024-11-27 17:11 | XMS_ITS | Encounter Summary ---
Author Organization [employer] Address [address] [place] [address] 7 [place] [address] Care Team Providers Care Leaf Size Picker Name Role Phone Shanda Rg NP Primary Care Provider [phone] Jas Cordero Unavailable Unavailable Reason for Visit * Reason Onset Date Comments Med Refill 02/15/2024 Encounter Details Date Type Department Care Team (Late st Contact Info) Description 02/15/2024 Telephone [facility] MED[facility]INE [address] [place] [address] Shanda Rg NP [address] [place], [place] [phone] Med Refill Social History Tobacco Use Types [...] 10:43 AM EDT Medication was sent to [facility] on 01/30/24 #30 with 5 refills. * Telephone Encounter - Susan Mendoza - 02/15/2024 10:39 AM EDT TC from pt requesting medication refill. Medications needing refill : zolpidem (Ambien) 10 MG tablet To be sent to: [facility] - [place], [place] - [address] [place] [address] documented in this encounter Plan of Treatment Upcoming Encounters Date Type Department Care Team (Late st Contact Info) Description 01/01/2025 9:30 AM EDT Office Visit [facility] MEDICINE [address] [place] [address] Shanda Rg NP [address] [place] [address] 01/30/2025 1:00 PM EDT Clinical Support [facility]INE [address] [place] [address] Ciat Velazquez, RN documented as of this encounter Visit Diagnoses Not on filedocumented in this encounter Additional Health Concerns Assessment Noted Time PHQ-9 Depression Total Score: 9 01/30/20 24 9:09 AM EDT documented as of this encounter Care Teams Leaf Size Picker Relationship Specialty Start Date End Date Shanda Rg NP [address] [place] [address] PCP - General Family Medicine 06/06/23 Jas Cordero FNP [address] [place] [address] Nurse Practitioner Family Medicine 07/24/23 Aixa Ng Intake SpecialistMicroarray Analyst 09/11/23 documented as of this encounter
--- OUTSIDE RECORDS SUMMARY | 2024-11-27 17:11 | XMS_ITS | Encounter Summary ---
Author Organization [email or web address] [facility] Address [address] [place] [address] 7 [place] [address] Care Team Providers Care Residential Case Manager Name Role Phone Carmen Faust MD Primary Care Provider Cali Lundberg MANAGER CAFE Primary Care Provider Jada Gomez MANAGER CAFE Primary Care Provider [phone] Shanda Rg NP Primary Care Provider [phone] Jas Cordero MANAGER CAFE Unavailable Unavailable Encounter Details Date Type Department Care Team (Late st Contact Info) Description 08/05/2022 Orders Only [facility] MEDICINE [address] [place] [address] Matthew Dunbar MD [address] [place] [address] Social History Tobacco Use Types Packs/Day Years [...] 9:30 AM EDT Office Visit [facility] MEDICINE [address] [place] [address] Shanda Rg NP [address] [place] [address] 01/30/2025 1:00 PM EDT Clinical Support [facility] MEDICINE [address] [place] [address] Cait Velazquez RN documented as of this encounter Visit Diagnoses Not on filedocumented in this encounter Care Teams Residential Case Manager Relationship Specialty Start Date End Date Carmen Faust MD PCP - General Family Medicine 02/17/20 09/20/22 Cali Steward FNP PCP - General Family Medicine 09/21/22 10/26/22 Jada Erickson FNP PCP - General Family Medicine 10/27/22 06/05/23 Shanda Rg NP [address] [place] [address] PCP - General Family Medicine 06/06/23 Jas Cordero FNP [address] [place] [address] Nurse Practitioner Family Medicine 07/24/23 Aixa Ng Tool And Die Maker/DesignerPress Shop Supervisor 09/11/23 documented as of this encounter
--- OUTSIDE RECORDS SUMMARY | 2024-11-27 17:11 | XMS_ITS | Encounter Summary ---
Author Organization [employer] Address [address] [place] [address] 7 [place] [address] Care Team Providers Care Knitting Demonstrator Name Role Phone Shanda Rg NP Primary Care Provider [phone] Jas Cordero Unavailable Unavailable Reason for Visit * Reason Onset Date Comments Med Refill 03/25/2024 Encounter Details Date Type Department Care Team (Late st Contact Info) Description 03/25/[address] [facility] MEDICINE [address] [place] [address] Shanda Rg NP [address] [place], [place] [phone] Med Refill Social History Tobacco Use Types [...] qty - 112 for [address] [facility] pharmacy. * Telephone Encounter - Jean oRsario - 03/25/2024 1:38 PM EDT TC from pt requesting medication refill. Medications needing refill: traMADol (Ultram) 50 MG tablet To be sent to: [facility] Pharmacy documented in this encounter Plan of Treatment Upcoming Encounters Date Type Department Care Team (Late st Contact Info) Description 01/01/2025 9:30 AM EDT Office Visit [facility] MEDICINE [address] [place] [address] Shanda Rg NP [address] [place] [address] 01/30/2025 1:00 PM EDT Clinical Support [facility] [address] [place] [address] [place] [address] Cait Velazquez, RN documented as of this encounter Visit Diagnoses Not on filedocumented in this encounter Additional Health Concerns Assessment Noted Time PHQ-9 Depression Total Score: 9 01/30/20 24 9:09 AM EDT documented as of this encounter Care Teams Knitting Demonstrator Relationship Specialty Start Date End Date Shanda Rg NP [address] [place] [address] PCP - General Family Medicine 06/06/23 Jas Cordero FNP [address] [place] [address] Nurse Practitioner Family Medicine 07/24/23 Aixa Ng Manager AnimalLighting Adviser 09/11/23 documented as of this encounter
--- OUTSIDE RECORDS SUMMARY | 2024-11-27 17:11 | XMS_ITS | Clinical Summary ---
Author Organization [facility] Address [address] [place] [address] Care Team Providers Care Fisheries Technician Name Role Phone Unavailable Primary Care Provider [...] that showed slight lumbar dextrocurvature with trace zjha-em-ychay lateral lithesis at L4-L5. Trace anterolithesis at [...] depressive disorder with psychotic feature s ([facility]) 08/16/2022 Overview (05/09/2024): Last Assessment & [...] will be transferred to new [facility] Psychiatric Prescriber. Pt is aware that those appointments will be via televisit, and that the provider is not an [facility] employee. He gives verbal consent to share [...] Type 2 diabetes mellitus without complication ([facility]) 12/16/2016 Overview (05/09/2024): Education provided re: therapeutic [...] Health Maintenance Due Date Last Done Comments Anxiety Screening 1965 Depression Monitoring 1965 Diabetes Foot Exam 1965 Serum Creatinine 1965 Tobacco Screening 1965 Urine Albumin Creatinine Rat io Screening [address] Colonography 2010 Colonoscopy 2010 Colorectal Cancer Screening 2010 FIT/gFOBT 2010 Fecal DNA 2010 Flexible Sigmoidoscopy 2010 Imm-Hepatitis B (2 of 3 - 19 + 3-dose series) 05/11/2023 04/13/2023 Lyw-TOKBU-11 ( season) 2024 09/02/2022, 2021, 12/07/2020, Additional history exists Imm-Influenza (#1) 2024 07/10/2020, 0 05/16/2018, 05/19/2016 Diabetes HbA1c 05/05/2024 11/03/2023, 03/28, 06/08/2022, Additional history exists Alcohol and Drug Screen 08/28/2024 Lipid Screening 11/08/2024 11/09/2023 Imm-DTaP/Tdap/Td (2 - Td or Tdap) 07/03/2029 019 Imm-Zoster, Recombinant Completed 09/23/2020, 07/10 HIV Screening Completed 11/09/2023, 11/09/2023 Hepatitis C Screening Completed 11/09/2023 Insurance [place] MEDICAID [facility]
--- OUTSIDE RECORDS SUMMARY | 2024-11-27 17:11 | XMS_ITS | Encounter Summary ---
Author Organization [employer] Address [address] [place] [address] 7t [place] [address] Care Team Providers Care Arts Administrator Name Role Phone Jada EricksonP Primary Care Provider [phone] Shanda Rg NP Primary Care Provider [phone] Jas Cordero Unavailable Unavailable Reason for Visit * Reason Comments Med Refill Encounter Details Date Type Department Care Team (Late st Contact Info) Description 01/24/2023 Refill [facility] MEDICINE [address] [place] [address] Jada Erickson FNP [address] [place] [address] Dept [place] [address] Pain; Cervical radiculopathy; Lumbar radiculopathy Social History [...] Description 01/01/2025 9:30 AM EDT Office Visit [facility] MEDICINE [address] [place] [address] Shanda Rg NP 230 [place] [address] 01/30/2025 1:00 PM EDT Clinical Support [facility] [place] [address] Cait Velazquez RN documented as of this encounter Visit Diagnoses Diagnosis Pain Generalized pain Cervical radiculopathy Brachial neuritis or radiculitis nos Lumbar radiculopathy Thoracic or lumbosacral neuritis or radiculitis, unspecified documented in this encounter Additional Health Concerns Assessment Noted Time PHQ-9 Depression Total Score: 9 01/18/20 23 12:56 PM EDT documented as of this encounter Care Teams Arts Administrator Relationship Specialty Start Date End Date Jada Erickson FNP PCP - General Family Medicine 10/27/22 06/05/23 Shanda Rg NP [address] [place] [address] PCP - General Family Medicine 06/06/23 Jas Cordero FNP [address] [place] [address] Nurse Practitioner Family Medicine 07/24/23 Aixa Ng Leather Belt MakerBroom Builder 09/11/23 documented as of this encounter
--- OUTSIDE RECORDS SUMMARY | 2024-11-27 17:11 | XMS_ITS | Encounter Summary ---
Author Organization [facility] Address [address] [place] [address] 7t [place] [address] Care Team Providers Care Customer Support Analyst Name Role Phone Carmen Faust MD Primary Care Provider Cali Lundberg FLASK HANDLER Primary Care Provider Jada Gomez FLASK HANDLER Primary Care Provider [phone] Shanda Rg NP Primary Care Provider [phone] Jas Cordero FLASK HANDLER Unavailable Unavailable Encounter Details Date Type Department Care Team (Latest Contact Info) Description 07/15/2019 Abstract [facility] CONVERSIONS Dental, Provider, DDS Social History Tobacco [...] Office Visit [facility] MEDICINE [address] [place] [address] Shanda Rg NP [address] [place] [address] 01/30/2025 1:00 PM EDT Clinical Support [facility] MEDICINE [address] [place] [address] Caroline, Cait, RN documented as of this encounter Visit Diagnoses Not on filedocumented in this encounter Care Teams Customer Support Analyst Relationship Specialty Start Date End Date Carmen Faust MD PCP - General Family Medicine 02/17/20 09/20/22 Cali Steward FNP PCP - General Family Medicine 09/21/22 10/26/22 Jada Erickson FNP PCP - General Family Medicine 10/27/22 06/05/23 Shanda Rg NP [address] [place], [place] [phone] PCP - General Family Medicine 06/06/23 Jas Cordero FNP [address] [place] [address] Nurse Practitioner Family Medicine 07/24/23 Aixa Ng Cloth DesignerToll Lineman 09/11/23 documented as of this encounter
== END 2024-11-27 15:42 | disposition home or self-care (01) ==
LOC: HO.HGI 14:22
PROVIDERS: PCP Registered Nurse; Visit Provider Nurse Practitioner Family
DX: Z01.818 Encounter for other preprocedural examination (principal); Z12.11 Encounter for screening for malignant neoplasm of colon; K21.9 Gastro-esophageal reflux disease without esophagitis; K59.04 Chronic idiopathic constipation
CPT/HCPCS: 99212

== ENCOUNTER → 2024-11-27 14:22 | Outpatient (BNVA) | payer MEDICAID, SELFPAY | PROVIDERS: PCP Registered Nurse; Visit Provider Nurse Practitioner Family | DX: Z12.11 Encounter for screening for malignant neoplasm of colon (principal); K21.9 Gastro-esophageal reflux disease without esophagitis; K59.04 Chronic idiopathic constipation | CPT/HCPCS: 99212 ==

== ENCOUNTER → 2024-12-30 20:30 | Outpatient (REF) | payer MEDICAID, SELFPAY ==
--- OUTSIDE RECORDS SUMMARY | 2024-12-30 21:22 | XMS_ITS | Encounter Summary ---
Author Organization [employer] Address [address] [place] [address] 7t [place] [address] Care Team Providers Care Aniline Press Worker Name Role Phone Shanda Rg NP Primary Care Provider [phone] Jas Cordero Unavailable Unavailable Reason for Visit * Reason Comments Med Refill Encounter Details Date Type Department Care Team (Late st Contact Info) Description 09/09/2023 Refill [facility] MEDICINE [address] [place] [address] NameJerardo MD 230 [place] [address] Radiculopathy, cervical region Social History Tobacco Use [...] Care Team (Late st Contact Info) Description 01/06/2025 2:45 PM EDT Office Visit [address] [address] Shanda Rg NP [address] [place] [address] 01/30/2025 1:00 PM EDT Clinical Support [facility] MEDICINE [address] [place] [address] Cait Velazquez RN documented as of this encounter Visit Diagnoses Diagnosis Radiculopathy, cervical region Brachial neuritis or radiculitis nos documented in this encounter Additional Health Concerns Assessment Noted Time PHQ-9 Depression Total Score: 4 08/01/20 23 11:20 AM EST documented as of this encounter Care Teams Aniline Press Worker Relationship Specialty Start Date End Date Shanda Rg NP [address] [place] [address] PCP - General Family Medicine 06/06/23 Jas Cordero FNP 230 [place] [address] Nurse Practitioner Family Medicine 07/24/23 Aixa Ng Contact Acid Plant Operator HelperOvernight Cashier 09/11/23 documented as of this encounter
--- OUTSIDE RECORDS SUMMARY | 2024-12-30 21:22 | XMS_ITS | Encounter Summary ---
Author Organization [email or web address] Address [address] [place] [address] 7t [place] [address] Care Team Providers Care Convention Services Manager Name Role Phone Shanda Rg NP Primary Care Provider [phone] Jas Cordero Unavailable Unavailable Reason for Visit * Reason Comments Med Refill Encounter Details Date Type Department Care Team (Late st Contact Info) Description 08/01/2023 Refill [facility] MEDICINE [address] [place] [address] Lianet Mae FNP [address] [place] [address] Pain; Cervical radiculopathy; Lumbar radiculopathy Social History [...] Description 01/06/2025 2:45 PM EDT Office Visit [facility] MEDICINE [address] [place] [address] Shanda Rg NP [address] [place] [address] 01/30/2025 1:00 PM EDT Clinical Support [facility] MEDICINE [address] [place] [address] Cait Velazquez RN documented as of this encounter Visit Diagnoses Diagnosis Pain Generalized pain Cervical radiculopathy Brachial neuritis or radiculitis nos Lumbar radiculopathy Thoracic or lumbosacral neuritis or radiculitis, unspecified documented in this encounter Additional Health Concerns Assessment Noted Time PHQ-9 Depression Total Score: 4 08/01/20 23 11:20 AM EST documented as of this encounter Care Teams Convention Services Manager Relationship Specialty Start Date End Date Shanda Rg NP [address] [place] [address] PCP - General Family Medicine 06/06/23 Jas Cordero FNP [address] [place] [address] Nurse Practitioner Family Medicine 07/24/[address] MagistratePvc Monitor 09/11/23 documented as of this encounter
--- OUTSIDE RECORDS SUMMARY | 2024-12-30 21:22 | XMS_ITS | Clinical Summary ---
Author Organization Unknown Care Team Providers Care Wheel Roller Name Role Phone TERRELL ARENAS, JAMILA Unavailable Unavailable RAYO RN, RAFI Unavailable Unavailable Payers Payer Name Policy Type Policy Number Effective Date Expira tion Date MEDICAID [facility] [id number] Problems Condition Name Condition Details Condition Category Status Onset Date Resolution Date Last Treatment Date Treating Clinician Comments MAJOR DEPRESSIVE DISORDER, SINGLE EPISODE, UNSPECIFIED Active 4- 00:00: 00 POST-TRAUMAT IC STRESS DISORDER, UNSPECIFIED Active - 00:00: 00 PANIC DISORDER [EPISODIC PAROXYSMAL ANXIETY] Active 2-02 00:00: 00 PREDIABETES Active 3- 00:00: 00 OTHER INTERVERTEBR AL DISC DEGENERATION , LUMBAR REGION Active 2-02 00:00: 00 ESSENTIAL (PRIMARY) HYPERTENSION Active 2-02 00:00: 00 MILD INTERMITTENT ASTHMA, UNCOMPLICATE D Active 3-02 00:00: 00 SLEEP APNEA, UNSPECIFIED Active 2-02 00:00: 00 RADICULOPATH Y, CERVICAL REGION Active 2-02 00:00: 00 PURE HYPERCHOLEST EROLEMIA, UNSPECIFIED Active 3-02 00:00: 00 OVERWEIGHT Active 3-02 00:00: 00 INSOMNIA, UNSPECIFIED Active 3-02 00:00: 00 Allergies, Adverse Reactions, Alerts Allergy Name Allergy Type Status Severity Reaction(s) Onset Date Inactive Date Treating Clinician Comments NKA Propensity to adverse reactions Active 2024-09 22:27:3 2 Medications Ordered Medication Name Filled Medication Name Start Date Stop Date Current Medication? Ordering Clinician Indication Dosage Frequency Signature (SIG) Comments Components amlodipine 5 mg tablet 2023-08 00:00: 00 09-23 23:59 :00 No [id number] 1 tablet EVERY AM 1 tablet EVERY AM (route: oral) Med Classific ation: Cardiovas cular Therapy Agents aripiprazol e 20 mg tablet 2023-08 00:00: 00 09-23 23:59 :00 No [id number] 1 tablet BEDTIME 1 tablet BEDTIME (route: oral) Med Classific ation: Central Nervous System Agents atorvastati n 80 mg tablet 2023-08 00:00: 00 09-23 23:59 :00 No [id number] 1 tablet BEDTIME 1 tablet BEDTIME (route: oral) Med Classific ation: Cardiovas cular Therapy Agents buspirone 30 mg tablet 2023-08 00:00: 00 09-23 23:59 :00 No [id number] 1 tablet 3 TIMES DAILY 1 tablet 3 TIMES DAILY (route: oral) Med Classific ation: Central Nervous System Agents cetirizine 10 mg tablet 2023-08 00:00: 00 09-23 23:59 :00 No [id number] 1 tablet EVERY AM 1 tablet EVERY AM (route: oral) Med Classific ation: Respirato ry Therapy Agents eszopiclone 3 mg tablet 2023-08 00:00: 00 09-23 23:59 :00 No [id number] 1 tablet BEDTIME 1 tablet BEDTIME (route: oral) Med Classific ation: Central Nervous System Agents folic acid 1 mg tablet 2023-08 00:00: 00 09-23 23:59 :00 No [id number] 1 tablet EVERY AM 1 tablet EVERY AM (route: oral) Med Classific ation: Electroly te Balance-N utritiona l Products furosemide 20 mg tablet 2023-08 00:00: 00 09-23 23:59 :00 No [id number] 1 tablet EVERY AM 1 tablet EVERY AM (route: oral) Med Classific ation: Cardiovas cular Therapy Agents gabapentin 300 mg capsule 2023-08 00:00: 00 09-23 23:59 :00 No [id number] 1 capsule 2 TIMES DAILY 1 capsule 2 TIMES DAILY (route: oral) Med Classific ation: Central Nervous System Agents gabapentin 300 mg capsule 2023-08 00:00: 00 09-23 23:59 :00 No [id number] 2 capsule BEDTIME 2 capsule BEDTIME (route: oral) Med Classific ation: Central Nervous System Agents losartan 100 mg-hydrochl orothiazide 12.5 mg tablet 2023-08 00:00: 00 09-23 23:59 :00 No [id number] 1 tablet EVERY AM 1 tablet EVERY AM (route: oral) Med Classific ation: Cardiovas cular Therapy Agents metformin 500 mg tablet 2023-08 00:00: 00 09-23 23:59 :00 No [id number] 1 tablet EVERY AM 1 tablet EVERY AM (route: oral) Med Classific ation: Endocrine metoprolol tartrate 100 mg tablet 2023-08 00:00: 00 09-23 23:59 :00 No [id number] 1 tablet 2 TIMES DAILY 1 tablet 2 TIMES DAILY (route: oral) Med Classific ation: Cardiovas cular Therapy Agents mirtazapine 15 mg tablet 2023-08 00:00: 00 09-23 23:59 :00 No [id number] 0.5 tablet BEDTIME 0.5 tablet BEDTIME (route: oral) Med Classific ation: Central Nervous System Agents Risperdal 0.5 mg tablet 2023-08 00:00: 00 09-23 23:59 :00 No [id number] 1 tablet BEDTIME 1 tablet BEDTIME (route: oral) Med Classific ation: Central Nervous System Agents ropinirole 0.5 mg tablet 2023-08 00:00: 00 09-23 23:59 :00 No [id number] 2 tablet 2 TIMES DAILY 2 tablet 2 TIMES DAILY (route: oral) Med Classific ation: Central Nervous System Agents venlafaxine ER 150 mg capsule,ext ended release 24 hr 2023-08 00:00: 00 09-23 23:59 :00 No [id number] 1 capsule DAILY 1 capsule DAILY (route: oral) Med Classific ation: Central Nervous System Agents Vitamin D3 50 mcg (2,000 unit) capsule 2023-08 00:00: 00 09-23 23:59 :00 No [id number] 1 capsule EVERY AM 1 capsule EVERY AM (route: oral) Med Classific ation: Electroly te Balance-N utritiona l Products amlodipine 5 mg tablet 2- 00:00: 00 Yes [id number] 1 tablet DAILY 1 tablet DAILY (route: oral) Med Classific ation: Cardiovas cular Therapy Agents atorvastati n 80 mg tablet 2- 00:00: 00 Yes [id number] 1 tablet BEDTIME 1 tablet BEDTIME (route: oral) Med Classific ation: Cardiovas cular Therapy Agents folic acid 1 mg tablet 2- 00:00: 00 Yes [id number] 1 tablet DAILY 1 tablet DAILY (route: oral) Med Classific ation: Electroly te Balance-N utritiona l Products furosemide 20 mg tablet 2- 00:00: 00 Yes [id number] 1 tablet DAILY 1 tablet DAILY (route: oral) Med Classific ation: Cardiovas cular Therapy Agents gabapentin 300 mg capsule 2- 00:00: 00 Yes [id number] 1 capsule 2 TIMES DAILY 1 capsule 2 TIMES DAILY (route: oral) Med Classific ation: Central Nervous System Agents gabapentin 300 mg capsule 2- 00:00: 00 Yes [id number] 2 capsule BEDTIME 2 capsule BEDTIME (route: oral) Med Classific ation: Central Nervous System Agents losartan 100 mg tablet 2- 00:00: 00 Yes [id number] 1 tablet DAILY 1 tablet DAILY (route: oral) Med Classific ation: Cardiovas cular Therapy Agents metformin 500 mg tablet 2- 00:00: 00 Yes [id number] 1 tablet EVERY AM 1 tablet EVERY AM (route: oral) Med Classific ation: Endocrine metoprolol tartrate 100 mg tablet 2- 00:00: 00 Yes [id number] 1 tablet 2 TIMES DAILY 1 tablet 2 TIMES DAILY (route: oral) Med Classific ation: Cardiovas cular Therapy Agents venlafaxine 75 mg tablet 2- 00:00: 00 11-26 23:59 :00 No [id number] 1 tablet DAILY 1 tablet DAILY (route: oral) Med Classific ation: Central Nervous System Agents venlafaxine ER 150 mg tablet,exte nded release 24 hr - 00:00: 00 11-23 23:59 :00 No [id number] 1 tablet DAILY 1 tablet DAILY (route: oral) Med Classific ation: Central Nervous System Agents Vitamin D3 50 mcg (2,000 unit) capsule 2- 00:00: 00 Yes [id number] 1 capsule DAILY 1 capsule DAILY (route: oral) Med Classific ation: Electroly te Balance-N utritiona l Products zolpidem 10 mg tablet 2- 00:00: 00 Yes [id number] .5 tablet BEDTIME .5 tablet BEDTIME (route: oral) Med Classific ation: Central Nervous System Agents Abilify 15 mg tablet - 00:00: 00 Yes [id number] 1 tablet DAILY 1 tablet DAILY (route: oral) Med Classific ation: Central Nervous System Agents cetirizine 10 mg tablet 2- 00:00: 00 Yes [id number] 1 tablet DAILY 1 tablet DAILY (route: oral) Med Classific ation: Respirato ry Therapy Agents ropinirole 0.5 mg tablet 2- 00:00: 00 Yes [id number] 1 tablet BEDTIME 1 tablet BEDTIME (route: oral) Med Classific ation: Central Nervous System Agents Senna Laxative 8.6 mg tablet - 00:00: 00 Yes [id number] 1 tablet BEDTIME 1 tablet BEDTIME (route: oral) Med Classific ation: Gastroint estinal Therapy Agents tramadol 50 mg tablet 2- 00:00: 00 Yes [id number] 2 tablet EVERY 12 HOURS 2 tablet EVERY 12 HOURS (route: oral) Med Classific ation: Analgesic , Anti-infl ammatory or Antipyret ic buspirone 15 mg tablet 3- 00:00: 00 Yes [id number] 1 tablet 3 TIMES DAILY 1 tablet 3 TIMES DAILY (route: oral) Med Classific ation: Central Nervous System Agents mirtazapine 7.5 mg tablet 3- 00:00: 00 Yes [id number] 1 tablet BEDTIME 1 tablet BEDTIME (route: oral) Med Classific ation: Central Nervous System Agents risperidone 1 mg tablet 10-26 00:00: 00 Yes [id number] 1 tablet BEDTIME 1 tablet BEDTIME (route: oral) Med Classific ation: Central Nervous System Agents venlafaxine 75 mg tablet 11-28 00:00: 00 Yes [id number] 1 tablet DAILY 1 tablet DAILY (route: oral) Med Classific ation: Central Nervous System Agents cyanocobala min (vit B-12) 500 mcg tablet 12-01 00:00: 00 Yes [id number] 1 tablet EVERY AM 1 tablet EVERY AM (route: oral) Med Classific ation: Electroly te Balance-N utritiona l Products mecobalamin (vitamin B12) 500 mcg chewable tablet 12-07 00:00: 00 Yes [id number] 1 tablet DAILY 1 tablet DAILY (route: oral) Med Classific ation: Electroly te Balance-N utritiona l Products Vital Signs Vital Name Observation Time Observation Value Commen ts Temperature 2024-12-28 13:53:00.000 97.7 [degF] Temperature 2024-12-21 13:52:00.000 97.6 [degF] Temperature 2024-12-14 16:28:00.000 97.6 [degF] Temperature 2024-12-07 13:51:00.000 97.6 [degF] Temperature 2024-11-30 09:30:00.000 98.6 [degF] Pulse 2024-12-28 13:53:00.000 100 /min Pulse 2024-12-21 13:52:00.000 66 /min Pulse 2024-12-14 16:28:00.000 82 /min Pulse 2024-12-07 13:51:00.000 76 /min Pulse 2024-11-30 09:30:00.000 105 /min O2 Saturation (%) 2024-12-07 13:51:00.000 98 % Respirations 2024-12-28 13:53:00.000 16 /min Respirations 2024-12-21 13:52:00.000 16 /min Respirations 2024-12-14 16:28:00.000 16 /min Respirations 2024-12-07 13:51:00.000 16 /min Respirations 2024-11-30 09:30:00.000 19 /min Systolic Blood Pressure 2024-12-28 13:53:00.000 148 mm [Hg] Systolic Blood Pressure 2024-12-21 13:52:00.000 122 mm [Hg] Systolic Blood Pressure 2024-12-14 16:32:00.000 148 mm [Hg] Systolic Blood Pressure 2024-12-07 13:51:00.000 138 mm [Hg] Systolic Blood Pressure 2024-11-30 09:30:00.000 143 mm [Hg] Diastolic Blood Pressure 2024-12-28 13:53:00.000 80 mm [Hg] Diastolic Blood Pressure 2024-12-21 13:52:00.000 80 mm [Hg] Diastolic Blood Pressure 2024-12-14 16:32:00.000 88 mm [Hg] Diastolic Blood Pressure 2024-12-07 13:51:00.000 80 mm [Hg] Diastolic Blood Pressure 2024-11-30 09:30:00.000 89 mm [Hg] Plan of Treatment Planned [...] AWARENESS FOR SAFETY AND WILL NOTIFY CLINICAL ROOF CEMENT AND PAINT MAKER HELPER AND PHYSICIAN/PROVIDER WITH ANY CHANGE IN CONDITION. [code = SKILLED NURSE WILL MAINTAIN SITUATIONAL AWARENESS FOR SAFETY AND WILL NOTIFY CLINICAL ROOF CEMENT AND PAINT MAKER HELPER AND PHYSICIAN/PROVIDER WITH ANY CHANGE IN CONDITION.] Future Scheduled Test SKILLED NU RSE TO REVIEW PATIENT MEDICATIONS. INSTRUCT PATIENT/CAREGIVER ON MONITORING OF EFFECTIVENESS, ADVERSE DRUG REACTIONS, SIDE EFFECTS OF ALL MEDICATIONS (PRESCRIPTION/-OTC), AND HOW AND WHEN TO REPORT PROBLEMS. [code = SKILLED NURSE TO REVIEW PATIENT MEDICATIONS. INSTRUCT PATIENT/CAREGIVER ON MONITORING OF EFFECTIVENESS, ADVERSE DRUG REACTIONS, SIDE EFFECTS OF ALL MEDICATIONS (PRESCRIPTION/-OTC), AND HOW AND WHEN TO REPORT PROBLEMS.] Future Scheduled Test SKILLED NU RSE FOR [...] INTERVENTION.] Future Scheduled Test SKILLED NU RSE FOR O/A AND SKILLED TEACHING OF COPING SKILLS TO MANAGE ANXIETY AND MAINTAIN SAFETY. [code = SKILLED NURSE FOR O/A AND SKILLED TEACHING OF COPING SKILLS TO MANAGE ANXIETY AND MAINTAIN SAFETY.] Future Scheduled Test SKILLED NU RSE TO [...] REPORT.] Future Scheduled Test SKILLED NU RSE TO O/A OF PATIENTS MENTAL/BEHAVIORAL STATUS, ASSESS VITAL SIGNS EACH VISIT ALLOW 2 PRNS FOR MEDICATION MANAGEMENT. [code = SKILLED NURSE TO O/A OF PATIENTS MENTAL/BEHAVIORAL STATUS, ASSESS VITAL SIGNS EACH VISIT ALLOW 2 PRNS FOR MEDICATION MANAGEMENT.] Future Scheduled Test SKILLED NU RSE TO PERFORM HOME SAFETY AND FALL ASSESSMENT AND PROVIDE INSTRUCTION TO IMPLEMENT HOME SAFETY AND FALL PREVENTION STRATEGIES. [code = SKILLED NURSE TO PERFORM HOME SAFETY AND FALL ASSESSMENT AND PROVIDE INSTRUCTION TO IMPLEMENT HOME SAFETY AND FALL PREVENTION STRATEGIES.] Future Scheduled Test SKILLED NU RSE FOR OBSERVATION AND ASSESSMENT OF PATIENTS PAIN LEVEL AND EFFECTIVENESS OF PAIN MANAGEMENT REGIMEN. SKILLED NURSE TO INSTRUCT PATIENT/CAREGIVER REGARDING PHARMACOLOGIC AND NON-PHARMACOLOGIC PAIN CONTROL MEASURES. SKILLED NURSE TO REPORT TO PHYSICIAN IF PAIN IS UNCONTROLLED WITH CURRENT PAIN MANAGEMENT REGIMEN. [code = SKILLED NURSE FOR OBSERVATION AND ASSESSMENT OF PATIENTS PAIN LEVEL AND EFFECTIVENESS OF PAIN MANAGEMENT REGIMEN. SKILLED NURSE TO INSTRUCT PATIENT/CAREGIVER REGARDING PHARMACOLOGIC AND NON-PHARMACOLOGIC PAIN CONTROL MEASURES. SKILLED NURSE TO REPORT TO PHYSICIAN IF PAIN IS UNCONTROLLED WITH CURRENT PAIN MANAGEMENT REGIMEN.] Goal Patient Goal - NO HOSPITALIZ ATION Goal 2024-11-23 Patient Goal - NO HOSPITALIZ ATION Goal Provider Goal - A PLAN OF CARE WILL BE ESTABLISHED THAT MEETS PATIENT'S PRISON NEEDS AND INCLUDES PATIENT GOAL FOR HOME HEALTH. Goal Provider Goal - PATIENT WILL REMAIN SAFE IN THE COMMUNITY AND WILL BE FREE OF DANGER TO SELF AND OTHERS THROUGHOUT THE CERTIFICATION PERIOD. Goal Provider Goal - PATIENT/CAREGIVER WILL VERBALIZE UNDERSTANDING OF EDUCATION PROVIDED ON MEDICATIONS BY THE END OF THE CERTIFICATION PERIOD. Goal Provider Goal - PATIENT WILL REMAIN SAFE WITHOUT DECOMPENSATION IN DEPRESSIVE CONDITION, WHILE MAINTAINING OPTIMAL LEVEL OF MENTAL HEALTH AND WELL BEING THROUGHOUT CERTIFICATION PERIOD. Goal Provider Goal - PATIENT WILL BE ABLE TO PERFORM DAILY FUNCTIONS AND HAVE OPTIMAL IMPROVEMENT IN LEVEL OF ANXIETY THROUGHOUT CERTIFICATION PERIOD. Goal Provider Goal - PSYCHOSOCIAL NEEDS WILL BE IDENTIFIED AND PLAN IMPLEMENTED TO MINIMIZE RISK THROUGHOUT CERTIFICATION PERIOD. Goal Provider Goal - PATIENT/CAREGIVER WILL VERBALIZE/DEMONSTRATE KNOWLEDGE OF DIABETIC MANAGEMENT. CHANGES IN DIABETIC STATUS WILL BE IDENTIFIED AND REPORTED TO PHYSICIAN FOR PROMPT INTERVENTION THROUGHOUT THE CERTIFICATION PERIOD. Goal Provider Goal - ALTERED MENTAL/BEHAVIORAL STATUS WILL BE IDENTIFIED PROMPTLY AND INTERVENTION INITIATED QUICKLY TO MINIMIZE ASSOCIATED RISKS THROUGHOUT CERTIFICATION PERIOD. Goal Provider Goal - PATIENT/CAREGIVER WILL VERBALIZE/DEMONSTRATE EFFECTIVE HOME SAFETY AND FALL PREVENTION STRATEGIES THROUGHOUT CERTIFICATION PERIOD. Goal Provider Goal - PATIENT/CAREGIVER WILL DEMONSTRATE UNDERSTANDING OF PHARMACOLOGIC AND NONPHARMACOLOGIC PAIN CONTROL MEASURES AND PATIENT WILL HAVE IMPROVEMENT IN PAIN INTERFERING WITH ACTIVITY EVIDENCED BY PAIN CONTROLLED AT LEVEL OF BELOW 5/10 OR LESS BY END OF CERTIFICATION PERIOD. Progress Notes Progress Notes <paragraph>[Visit Date: 2024 by RAFI CADE RN]:</paragraph><paragraph>12-28-24 PRISON VISIT MADE TO ASSESS MENTAL HEALTH STATUS SAFETY MED COMPLIANCE . 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 MED SET UP FROM [facility] 12/30/24- SLEEP STUDY</paragraph> Encounters Start Date/Time End Date/Time Encounter Type Admission Type Attending [facility] Care Department Encounter ID Discharge Date Discharge Status Discharge Condition Discharge Reason Percent Goals Met 2024-09-29 00:00:00 2025-01-26 00:00:00 Outpatient RECERTIFIC RAFI JIMENEZ [facility] [id number] 75.0 0
--- OUTSIDE RECORDS SUMMARY | 2024-12-30 21:22 | XMS_ITS | Encounter Summary ---
Author Organization [employer] Address [address] [place] [address] 7 [place] [address] Care Team Providers Care Nonprofit Fundraiser Name Role Phone Shanda Rg NP Primary Care Provider [phone] Jas Cordero Unavailable Unavailable Reason for Visit * Reason Onset Date Comments Appointment Request 09/25/2023 Encounter Details Date Type Department Care Team ([facility] st Contact Info) Description 09/25/2023 Telephone [facility] MEDICINE [address] [place] [address] Shanda Rg NP [address] [place], [place] [phone] Appointment Request Social History Tobacco Use Types [...] regarding existing conditions. Please contact pt at [phone]. Malian speaking documented in this encounter Plan of Treatment Upcoming Encounters Date Type Department Care Team ([facility] st Contact Info) Description 01/06/2025 2:45 PM EDT Office Visit [facility] MEDICINE [address] [place] [address] Shanda Rg NP [address] [place] [address] 01/30/2025 1:00 PM EDT Clinical Support [facility] MEDICINE [address] [place] [address] Cait Velazquez RN documented as of this encounter Visit Diagnoses Not on filedocumented in this encounter Additional Health Concerns Assessment Noted Time PHQ-9 Depression Total Score: 4 08/01/20 23 11:20 AM EST documented as of this encounter Care Teams Nonprofit Fundraiser Relationship Specialty Start Date End Date Shanda Rg NP [address] [place] [address] PCP - General Family Medicine 06/06/23 Jas Cordero FNP [address] [place] [address] Nurse Practitioner Family Medicine 07/24/23 Aixa Ng Wire Spring Relay AdjusterSponsorship Coordinator 09/11/23 documented as of this encounter
--- OUTSIDE RECORDS SUMMARY | 2024-12-30 21:22 | XMS_ITS | Encounter Summary ---
Author Organization [employer] Address [address] [place], [place] [address] [place] [address] Care Team Providers Care Microstrategy Architect Developer Name Role Phone Jada Erickson EMBLEM MAKER Primary Care Provider [phone] Shanda Rg NP Primary Care Provider [phone] Jas Cordero EMBLEM MAKER Unavailable Unavailable Reason for Visit * Reason Comments Med Refill Encounter Details Date Type Department Care Team (Late st Contact Info) Description 05/30/2023 Refill [facility] MEDICINE [address] [place] [address] Jada Erickson FNP [address] [place] [address] Dept [place] [address] Pain; Cervical radiculopathy; Lumbar radiculopathy Social History [...] Description 01/06/2025 2:45 PM EDT Office Visit [facility] MEDICINE [address] [place] [address] Shanda Rg NP [address] [place] [address] 01/30/2025 1:00 PM EDT Clinical Support [facility] [place] [address] Cait Velazquez RN documented as of this encounter Visit Diagnoses Diagnosis Pain Generalized pain Cervical radiculopathy Brachial neuritis or radiculitis nos Lumbar radiculopathy Thoracic or lumbosacral neuritis or radiculitis, unspecified documented in this encounter Additional Health Concerns Assessment Noted Time PHQ-9 Depression Total Score: 0 04/13/20 9:39 AM EDT documented as of this encounter Care Teams Microstrategy Architect Developer Relationship Specialty Start Date End Date Jada Erickson FNP PCP - General Family Medicine 10/27/22 06/05/23 Shanda Rg NP [address] [place] [phone] PCP - General Family Medicine 06/06/23 Jas Cordero FNP [address] [place] [address] Nurse Practitioner Family Medicine 07/24/23 Aixa Ng Wringer Machine OperatorRivet Spinner 09/11/23 documented as of this encounter
--- OUTSIDE RECORDS SUMMARY | 2024-12-30 21:22 | XMS_ITS | Encounter Summary ---
Author Organization [email or web address] Address [address] [place], [place] [address]t [place] [address] Care Team Providers Care It Systems Analyst Consultant Name Role Phone Jada Erickson CLINICAL RESEARCH PHYSICIAN Primary Care Provider [phone] Shanda Rg NP Primary Care Provider [phone] Jas Cordero CLINICAL RESEARCH PHYSICIAN Unavailable Unavailable Reason for Visit * Reason Comments Med Refill Encounter Details Date Type Department Care Team (Late st Contact Info) Description 05/30/2023 Refill [facility] MEDICINE [address] [place] [address] Jada Erickson FNP [address] [place] [address] Dept [place] [address] Pain; Cervical radiculopathy; Lumbar radiculopathy Social History [...] Description 01/06/2025 2:45 PM EDT Office Visit [facility] MEDICINE [address] [place] [address] Shanda Rg NP [address] [place] [address] 01/30/2025 1:00 PM EDT Clinical Support [facility] [place] [address] Cait Velazquez RN documented as of this encounter Visit Diagnoses Diagnosis Pain Generalized pain Cervical radiculopathy Brachial neuritis or radiculitis nos Lumbar radiculopathy Thoracic or lumbosacral neuritis or radiculitis, unspecified documented in this encounter Additional Health Concerns Assessment Noted Time PHQ-9 Depression Total Score: 0 04/13/20 9:39 AM EDT documented as of this encounter Care Teams It Systems Analyst Consultant Relationship Specialty Start Date End Date Jada Erickson FNP PCP - General Family Medicine 10/27/22 06/05/23 Shanda Rg NP [address] [place] [address] PCP - General Family Medicine 06/06/23 Jas Cordero FNP [address] [place] [address] Nurse Practitioner Family Medicine 07/24/23 Aixa Ng Trust Evaluation SupervisorRubber Goods Inspector 09/11/23 documented as of this encounter
--- OUTSIDE RECORDS SUMMARY | 2024-12-30 21:22 | XMS_ITS | Encounter Summary ---
Author Organization [employer] Address [address] [place] [address] 7t [place] [address] Care Team Providers Care Financial Management Consultant Name Role Phone Shanda Rg NP Primary Care Provider [phone] Jas Cordero Unavailable Unavailable Reason for Visit * Reason Comments Med Refill Encounter Details Date Type Department Care Team ([facility] st Contact Info) Description 09/22/2023 Refill [facility] MEDICINE [address] [place] [address] Carrie Shrestha MD [address] [place] [address] Seasonal allergic rhinitis, unspecified trigger Social History [...] Description 01/06/2025 2:45 PM EDT Office Visit [facility] MEDICINE [address] [place] [address] Shanda Rg NP [address] [place] [address] 01/30/2025 1:00 PM EDT Clinical Support [facility] MEDICINE [address] [place] [address] Cait Velazquez RN documented as of this encounter Visit Diagnoses Diagnosis Seasonal allergic rhinitis, unspecified trigger documented in this encounter Additional Health Concerns Assessment Noted Time PHQ-9 Depression Total Score: 4 08/01/20 23 11:20 AM EST documented as of this encounter Care Teams Financial Management Consultant Relationship Specialty Start Date End Date Shanda Rg NP [address] [place] [address] PCP - General Family Medicine 06/06/23 Jas Cordero FNP [address] [place] [address] Nurse Practitioner Family Medicine 07/24/23 Aixa Ng Student Teaching CoordinatorHotel Manager 09/11/23 documented as of this encounter
--- OUTSIDE RECORDS SUMMARY | 2024-12-30 21:22 | XMS_ITS | Encounter Summary ---
Author Organization [employer] Address [address] [place] [address] 7t [place] [address] Care Team Providers Care Manager Publishing Name Role Phone Shanda Rg NP Primary Care Provider [phone] Jas Cordero Unavailable Unavailable Reason for Visit * Reason Comments Med Refill Encounter Details Date Type Department Care Team ([facility] st Contact Info) Description 06/08/2023 Refill [facility] [address] [place] [address] Jada Erickson FNP [address] [place] [address] Dept [place] [address] Seasonal allergic rhinitis, unspecified trigger Social History [...] Description 01/06/2025 2:45 PM EDT Office Visit [facility] [address] [place] [address] Shanda Rg NP [address] [place] [address] 01/30/2025 1:00 PM EDT Clinical Support [facility] [address] [place] [address] Cait Velazquez RN documented as of this encounter Visit Diagnoses Diagnosis Seasonal allergic rhinitis, unspecified trigger documented in this encounter Additional Health Concerns Assessment Noted Time PHQ-9 Depression Total Score: 10 023 9:23 AM EDT documented as of this encounter Care Teams Manager Publishing Relationship Specialty Start Date End Date Shanda Rg NP [address] [place] [address] PCP - General Family Medicine 06/06/23 Jas Cordero FNP [address] [place] [address] Nurse Practitioner Family Medicine 07/24/23 Aixa Ng Dry Cleaning ManagerClinical Laboratory Manager 09/11/23 documented as of this encounter
--- OUTSIDE RECORDS SUMMARY | 2024-12-30 21:23 | XMS_ITS | Encounter Summary ---
Author Organization [employer] [facility] Address [address] [place] [address] 7[address] [place] [address] Care Team Providers Care Sales Relationship Manager Name Role Phone Carmen Faust MD Primary Care Provider Cali Lundberg MILLER HELPER DISTILLERY Primary Care Provider Jada Gomez MILLER HELPER DISTILLERY Primary Care Provider [phone] Shanda Rg NP Primary Care Provider [phone] Jas Cordero MILLER HELPER DISTILLERY Unavailable Unavailable Encounter Details Date Type Department Care Team (Latest Contact Info) Description 07/15/2019 Abstract [facility] Dental, Provider, DDS Social History Tobacco [...] Description 01/06/2025 2:45 PM EDT Office Visit [facility] [address] [place] [address] Shanda Rg NP [address] [place] [address] 01/30/2025 1:00 PM EDT Clinical Support [facility] [address] [place], [place] [phone] Cait Velazquez RN documented as of this encounter Visit Diagnoses Not on filedocumented in this encounter Care Teams Sales Relationship Manager Relationship Specialty Start Date End Date Carmen Faust MD PCP - General Family Medicine 02/17/20 09/20/22 Cali Steward FNP PCP - General Family Medicine 09/21/22 10/26/22 Jada Erickson FNP PCP - General Family Medicine 10/27/22 06/05/23 Shanda Rg NP [address] [place], [place] [phone] PCP - General Family Medicine 06/06/23 Jas Cordero FNP [address] [place] [address] Nurse Practitioner Family Medicine 07/24/23 Aixa Ng Security Systems EngineerRubber Goods Cutter Finisher 09/11/23 documented as of this encounter
--- OUTSIDE RECORDS SUMMARY | 2024-12-30 21:23 | XMS_ITS | Encounter Summary ---
Author Organization [employer] Address [address] [facility] 7t [place] [address] Care Team Providers Care Driver Supervisor Name Role Phone Shanda Rg NP Primary Care Provider [phone] Jas Cordero Unavailable Unavailable Encounter Details Date Type Department Care Team ([facility] Contact Info) Description 07/12/2024 Telephone [facility] [address] [place], [place] [phone] Shanda Rg NP [address] [place], [place] [phone] Social History Tobacco Use Types Packs/Day Years [...] Description 01/06/2025 2:45 PM EDT Office Visit [facility] [address] [place] [address] Shanda Rg NP [address] [place] [address] 01/30/2025 1:00 PM EDT Clinical Support [address] [address] Cait Velazquez, LUCY documented as of this encounter Visit Diagnoses Not on filedocumented in this encounter Additional Health Concerns Assessment Noted Time PHQ-9 Depression Total Score: 9 01/30/20 24 9:09 AM EDT documented as of this encounter Care Teams Driver Supervisor Relationship Specialty Start Date End Date Shanda Rg NP [address] [place] [address] PCP - General Family Medicine 06/06/23 Jas Cordero FNP [address] [place] [address] Nurse Practitioner Family Medicine 07/24/23 Aixa Ng Public Relations WriterNursing Administrator 09/11/23 documented as of this encounter
--- OUTSIDE RECORDS SUMMARY | 2024-12-30 21:23 | XMS_ITS | Encounter Summary ---
Author Organization [employer] Address [address] [facility] 7t [place] [address] Care Team Providers Care Collection Coordinator Name Role Phone Shanda Rg NP Primary Care Provider [phone] Jas Cordero Unavailable Unavailable Encounter Details Date Type Department Care Team ([facility] Contact Info) Description 08/15/2024 Telephone [facility] 230 [place], [place] [phone] Shanda Rg NP 230 [place], [place] [phone] Social History Tobacco Use Types Packs/Day Years [...] Description 01/06/2025 2:45 PM EDT Office Visit [facility] [address] [place] [address] Shanda Rg NP [address] [place] [address] 01/30/2025 1:00 PM EDT Clinical Support [address] [address] Cait Velazquez, LUCY documented as of this encounter Visit Diagnoses Not on filedocumented in this encounter Additional Health Concerns Assessment Noted Time PHQ-9 Depression Total Score: 9 01/30/20 24 9:09 AM EDT documented as of this encounter Care Teams Collection Coordinator Relationship Specialty Start Date End Date Shanda Rg NP [address] [place] [address] PCP - General Family Medicine 06/06/23 Jas Cordero FNP [address] [place] [address] Nurse Practitioner Family Medicine 07/24/23 Aixa Ng Type CutterHospital Technician 09/11/23 documented as of this encounter
--- OUTSIDE RECORDS SUMMARY | 2024-12-30 21:23 | XMS_ITS | Encounter Summary ---
Author Organization [employer] [facility] Address [address] [place] [address] 7[place] [address] Care Team Providers Care Trimmer Operator Three Knife Name Role Phone Carmen Faust MD Primary Care Provider Cali Lundberg CLAY MOLDER Primary Care Provider Jada Gomez CLAY MOLDER Primary Care Provider [phone] Shanda Rg NP Primary Care Provider [phone] Jas Cordero CLAY MOLDER Unavailable Unavailable Encounter Details Date Type Department Care Team (Late st Contact Info) Description 08/05/2022 Orders Only [facility] [address] [place] [address] Matthew Dunbar MD [address] [place] [address] Social History Tobacco Use Types Packs/Day Years [...] 2:45 PM EDT Office Visit [facility] [address] [place] [address] Shanda Rg NP 230 [place] [address] 01/30/2025 1:00 PM EDT Clinical Support [facility] [address] [place] [address] Cait Velazquez RN documented as of this encounter Visit Diagnoses Not on filedocumented in this encounter Care Teams Trimmer Operator Three Knife Relationship Specialty Start Date End Date Carmen Faust MD PCP - General Family Medicine 02/17/20 09/20/22 Cali Steward FNP PCP - General Family Medicine 09/21/22 10/26/22 Jada Erickson FNP PCP - General Family Medicine 10/27/22 06/05/23 Shanda Rg NP 230 [place] [address] PCP - General Family Medicine 06/06/23 Jas Cordero FNP [address] [place] [address] Nurse Practitioner Family Medicine 07/24/23 Aixa Ng Electrical Maintenance MechanicEngraver Letter 09/11/23 documented as of this encounter
--- OUTSIDE RECORDS SUMMARY | 2024-12-30 21:23 | XMS_ITS | Encounter Summary ---
Author Organization [employer] Address [address] [place], [place] [address]t [place] [address] Care Team Providers Care Call Center Support Representative Name Role Phone Jaad Erickson LITIGATION SERVICES MANAGER Primary Care Provider [phone] Shanda Rg NP Primary Care Provider [phone] Jas Cordero Unavailable Unavailable Reason for Visit * Reason Comments Med Refill Encounter Details Date Type Department Care Team (Late st Contact Info) Description 01/24/2023 Refill [facility] [address] [place] [address] Jada Erickson FNP [address] [place] [address] Dept [place] [address] Pain; Cervical radiculopathy; Lumbar radiculopathy Social History [...] Description 01/06/2025 2:45 PM EDT Office Visit [facility] [address] [place] [address] Shanda Rg NP [address] [place], [place] 01/30/2025 1:00 PM EDT Clinical Support [facility] [address] [place] [address] Cait Velazquez RN documented as of this encounter Visit Diagnoses Diagnosis Pain Generalized pain Cervical radiculopathy Brachial neuritis or radiculitis nos Lumbar radiculopathy Thoracic or lumbosacral neuritis or radiculitis, unspecified documented in this encounter Additional Health Concerns Assessment Noted Time PHQ-9 Depression Total Score: 9 01/18/20 12:56 PM EDT documented as of this encounter Care Teams Call Center Support Representative Relationship Specialty Start Date End Date Jada Erickson FNP PCP - General Family Medicine 10/27/22 06/05/23 Shanda Rg NP [address] [place] [address] PCP - General Family Medicine 06/06/23 Jas Cordero FNP [address] [place] [address] Nurse Practitioner Family Medicine 07/24/23 Aixa gN Baggage InspectorAssembler Trim 09/11/23 documented as of this encounter
--- OUTSIDE RECORDS SUMMARY | 2024-12-30 21:23 | XMS_ITS | Encounter Summary ---
Author Organization [employer] [facility] Address [address] [place] [address] [address] Care Team Providers Care Steward/Stewardess Name Role Phone Carmen Faust MD Primary Care Provider Cali Lundberg Primary Care Provider Jada GomezP Primary Care Provider [phone] Shanda Rg NP Primary Care Provider [phone] Jas Cordero Unavailable Unavailable Reason for Visit * Reason Comments Med Refill Encounter Details Date Type Department Care Team ([facility] Contact Info) Description 09/01/2022 Refill [facility] [address] [place] [address] Jas Cordero FNP Social History Tobacco Use [...] Upcoming Encounters Date Type Department Care Team ([facility] Contact Info) Description 01/06/2025 2:45 PM EDT Office Visit [facility] [address] [place] [address] Shanda Rg, DEEPA [address] [place] [address] 01/30/2025 1:00 PM EDT Clinical Support [facility] [address] [place] [address] Cait Velazquez, RN documented as of this encounter Visit Diagnoses Not on filedocumented in this encounter Additional Health Concerns Assessment Noted Time PHQ-9 Depression Total Score: 12 022 9:34 AM EST documented as of this encounter Care Teams Steward/Stewardess Relationship Specialty Start Date End Date Carmen Faust MD PCP - General Family Medicine 02/17/20 09/20/22 Cali Steward FNP PCP - General Family Medicine 09/21/22 10/26/22 Jada Erickson FNP PCP - General Family Medicine 10/27/22 06/05/23 Shanda Rg NP [address] [place] [address] PCP - General Family Medicine 06/06/23 Jas Cordero FNP [address] [place] [address] Nurse Practitioner Family Medicine 07/24/23 Aixa Ng Fibreglass LaminatorUrologist 09/11/23 documented as of this encounter
--- OUTSIDE RECORDS SUMMARY | 2024-12-30 21:23 | XMS_ITS | Encounter Summary ---
Author Organization [employer] Address [address] [place] [address] 7 [place] [address] Care Team Providers Care Plasterer Stucco Name Role Phone Shanda Rg NP Primary Care Provider [phone] Jas Cordero Unavailable Unavailable Reason for Visit * Reason Onset Date Comments Med Refill 02/15/2024 Encounter Details Date Type Department Care Team (Late st Contact Info) Description 02/15/2024 Telephone [facility] [address] [place] [address] Shanda Rg NP [address] [place], [place] [phone] Med Refill Social History Tobacco Use Types [...] 10:43 AM EDT Medication was sent to [facility] on 01/30/24 #30 with 5 refills. * Telephone Encounter - Susan Mendoza - 02/15/2024 10:39 AM EDT TC from pt requesting medication refill. Medications needing refill : zolpidem (Ambien) 10 MG tablet To be sent to: [facility] - [place], [place] - [address] [place] [address] documented in this encounter Plan of Treatment Upcoming Encounters Date Type Department Care Team (Late st Contact Info) Description 01/06/2025 2:45 PM EDT Office Visit [facility] [address] [place] [address] Shanda Rg NP [address] [place] [address] 01/30/2025 1:00 PM EDT Clinical Support [facility] [address] [place] [address] Cait Velazquez, RN documented as of this encounter Visit Diagnoses Not on filedocumented in this encounter Additional Health Concerns Assessment Noted Time PHQ-9 Depression Total Score: 9 01/30/20 24 9:09 AM EDT documented as of this encounter Care Teams Plasterer Stucco Relationship Specialty Start Date End Date Shanda Rg NP [address] [place] [address] PCP - General Family Medicine 06/06/23 Jas Cordero FNP [address] [place] [address] Nurse Practitioner Family Medicine 07/24/23 Aixa Ng Immunology SpecialistGas Systems Worker 09/11/23 documented as of this encounter
--- OUTSIDE RECORDS SUMMARY | 2024-12-30 21:23 | XMS_ITS | Clinical Summary ---
Author Organization [employer] Address [address] [place] [address] 7 [place] [address] Care Team Providers Care Fund Development Manager Name Role Phone Shanda Rg NP Primary Care Provider [phone] Jas Cordero Unavailable Unavailable Allergies No known [...] hours. 02/21/20 20 Active Fluocinolone Acetonide Scalp (Accord-Smoothe /FS Scalp) 0.01 % oilIndications :Psoriasis Use [...] 2 diabetes mellitus without complication, unspecified whether senior living insulin use ([facility]) TEST BLOOD SUGAR ONCE DAILY 100 each 10/30/19 25 Active glucose blood (FREESTYLE LITE) test stripIndicatio ns:Type 2 diabetes mellitus without complication, unspecified whether senior living insulin use ([facility]) TEST BLOOD SUGAR ONCE DAILY 50 each 10/30/19 25 Active Blood Glucose Monitoring Suppl (FreeStyle Lite) w/Device kitIndications :Type 2 diabetes mellitus without complication, unspecified whether senior living insulin use ([facility]) 1 kit 3 times daily. 1 kit 10/30/19 25 Active Alcohol Swabs 70 % padsIndication s:Type 2 diabetes mellitus without complication, unspecified whether senior living insulin use ([facility]) 1 Units 3 times daily. 90 each 3 10/30/19 25 Active gabapentin (Neurontin) 300 MG capsuleIndicat ions:Radiculop athy, cervical region TAKE 1 CAPSULE BY MOUTH TWICE DAILY IN THE MORNING AND AT NOON and TAKE 2 CAPSULES BY MOUTH EVERY DAY AT BEDTIME 120 capsule 12/25/19 25 Active gabapentin (Neurontin) 300 MG capsuleIndicat ions:Radiculop athy, cervical region TAKE 1 CAPSULE BY MOUTH TWICE DAILY IN THE MORNING AND AT NOON and TAKE 2 CAPSULES BY MOUTH EVERY DAY AT BEDTIME 120 capsule 11/21/19 25 025 Discontinued traMADol (Ultram) 50 MG tabletIndicati ons:Chronic pain of both knees Take 2 tablets (100 mg) by mouth every 12 (twelve) hours if needed for severe pain for up to 28 days. TAKE 2 TABLETS BY MOUTH EVERY TWELVE HOURS NEEDED FOR SEVERE PAIN 112 tablet 11/29/19 25 025 Active Problems Problem Noted Date Diagnosed Date Chronic pain syndrome 10/19/2024 Assessment & Plan (10/19/2024 12:10 PM EST): -followed by [facility] pain management group -continue tramadol as ordered -encouraged to continue [employer] appointments and encouraged to give some thought [...] that showed slight lumbar dextrocurvature with trace xodi-no-vqiqk lateral lithesis at L4-L5. Trace anterolithesis at [...] changes. Pain affecting gait and ambulation Discussed RAMÓNAvril handicap katherine with pt, he will bring [...] retiring patient will be transferred to new [facility] Psychiatric Prescriber. Pt is aware that those appointments will be via televisit, and that the provider is not an [facility] employee. He gives verbal consent to [...] Encounters Date Type Department Care Team Description 12/30/2024 Telephone [facility] MED & PEDS [address] [place] [phone] Shanda Rg NP Med Refill 12/25/2024 Refill [facility] MEDICINE [address] [place] [address] Sudha Werner MA Chronic pain of both knees 12/23/2024 Refill [facility] MED & PEDS [address] [place], [place] [phone] Shanda Rg NP Radiculopathy, cervical region 12/13/2024 Telephone [facility] MEDICINE [address] [place] [address] Shanda Rg NP Durable Medical Equipment (CPAP supplies) 11/27/2024 Refill [facility] MED [facility] PEDS [address] [place] [address] Shanda Rg NP Chronic pain of both knees 11/19/2024 Orders Only GENERIC EXTERNAL DATA DEPARTMENT Provider, Generic External Data 11/19/2024 Refill [facility] MED & PEDS [address] [place] [address] Shanda Rg NP Radiculopathy, cervical region 11/08/2024 Population Health Risk Score [facility] (C3) Department [address] [place] [phone] Provider, Population Health Generic 10/29/2024 Refill [facility] MEDICINE [address] [place] [address] Name, MD Jerardo Chronic pain of both knees 10/29/2024 Refill [facility] MEDICINE [address] [place] [address] Shanda Rg NP Type 2 diabetes mellitus without complication, unspecified whether senior living insulin use (CMS/HCC) 10/29/2024 Refill [facility] MEDICINE [address] [place] [address] Shanda Rg NP Type 2 diabetes 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 without complication, 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 (CMS/HCC) (Primary Dx) 10/22/2024 Telephone [facility] MEDICINE [address] [place] [address] Shanda Rg NP 10/21/2024 Refill [facility] MED & PEDS [address] [place] [address] Shanda Rg NP Radiculopathy, cervical region 10/16/2024 1:15 PM EST Office Visit [facility] OPTOMETRY [address] [place] [address] Kuldip, Oly, OD Presbyopia (Primary Dx) 10/15/2024 Telephone [facility] MEDICINE [address] [place] [address] Sudha Palacios MA 10/02/2024 2:00 PM EST Clinical Support [facility] MEDICINE [address] [place] [address] Cait Velazquez, coding specialist home health pain of both knees (Primary Dx) 10/02/2024 Travel 10/02/2024 Telephone [facility] MEDICINE [address] [place] [address] Cait Velazquez, RN Recommend [employer] Tier 3 from Last 3 Months Immunizations Name Administration [...] Description 01/06/2025 2:45 PM EDT Office Visit [facility] MEDICINE [address] [place] [phone] Shanda Rg NP [address] [place] [address] 01/30/2025 1:00 PM EDT Clinical Support [facility] MEDICINE [address] [place] [phone] Cait Velazquez, RN Health Maintenance Due Date Last Done Comments CT Colonography 1965 FIT DNA/Cologuard 1965 FIT 1965 FOBT 1965 Sigmoidoscopy 1965 Hepatitis B Vaccines (2 of 3 - 19+ 3-dose series) 05/11/2023 04/13/2023 COVID-19 Vaccine ( season) 2024 09/02/2022, 2021, 12/07/2020, Additional history exists Influenza Vaccine (#1) 2024 , 05/16/2018, 05/19/2016 Diabetes: Hemoglobin A1C 05/22/2025 025, 09/04/2024, 11/03/2023, [...] EDT) Vitamin D, 25-OH, D2 <4 ng/mL [facility] Comment:This test was felton hong and its analytical performancecharacteristics have been determined by [employer] [place], [place]. It hasnot been cleared or approved by the U.S. Food and DrugAdministration. This assay has been validated pursuantto the CLIA regulations and is used for clinicalpurposes.THIS TEST WAS PERFORMED AT:[id number] [place] [address]ZMPXUCAZANA THAO MD,PHD Vitamin D, 25-OH, D3 38 ng/mL [facility] Comment:This test was felton hong and its analytical performancecharacteristics have been determined by [facility] [place], [place]. It hasnot been cleared or approved by the U.S. Food and DrugAdministration. This assay has been validated pursuantto the CLIA regulations and is used for clinicalpurposes. Vitamin D, 25-OH, Total 38 30 - 100 ng/mL [facility] Comment:Vitamin D, 25-Hydrox y reports concentrations [...] = 30 ng/mL.For additional information, please refer tohttp://education.[employer]/faq/OUP486(This link is being provided for informational/educational purposes only.) 11/19/2024 8:55 AM EDT 11/19/2024 8:55 AM EDT us Generic External Data Provider LAB BLOOD ORDERAB LES Final Result [facility] [address] [place] [phone] * (ABNORMAL) CRP, HIGH SENSITIVITY (11/19/2024 8:55 AM EDT) CRP, High Sensitivity 11.6(A) mg/L [facility] Comment: Reference RangeOptimal <1.0Lizzie OCHOA et [...] health practice:A statement for healthcare professionals from theCleveland Clinic Mercy Hospitalers for Disease Control and Prevention and theAmerican Heart Association. Circulation 2003; 107(3):499-511.THIS TEST WAS PERFORMED AT:[facility] [place] [address] ?? [id number] PALACIO MD 11/19/2024 8:55 AM EDT 11/19/2024 8:55 AM EDT us Generic External Data Provider LAB BLOOD ORDERAB LES Final Result [facility] [address] [place] [phone] * Vitamin B12 (Cobalamin) and Folate Panel, Serum (11/19/2024 8:55 AM EDT) Vitamin B12 350 200 - 900 pg/mL [facility] Comment:NORMAL 200-900 PG/ML INDETERMINATE 160-199 PG/ML DEFICIENT < 160 PG/ML Folate 13.9 > or = 4.0 ng/mL [facility] Comment:Reference Values:> o r = 4.0 ng/mL< 4.0 ng/mL suggests folate deficiency Methotrexate, aminopterin and folinic acid(leucovorin) are chemotherapeutic agents whose molecularstructures are similar to folate; therefore, the Architectfolate assay cannot be used for patients using these drugs. 11/19/2024 8:55 AM EDT 11/19/2024 8:55 AM EDT us Generic External Data Provider LAB BLOOD ORDERAB LES Final Result Performing Organization Address [facility]/ZIP Co de Phone Number [facility] [address] [place] [phone] * TSH with Reflex to Free T4 (11/19/2024 8:55 AM EDT) Pathologist [facility] TSH reflex Free T4 2.29 0.32 - 4.0 uIU/mL [facility] 11/19/2024 8:55 AM EDT 11/19/2024 8:55 AM EDT Generic External Data Provider LAB BLOOD ORDERAB LES Final Result Performing Organization Address City/[facility] Co de Phone Number [facility] [address] [place] [phone] * CBC auto differential (11/19/2024 8:55 AM EDT) [facility] White Blood Count 8.6 4.8 - 10.8 X10*3/uL [facility] Red Blood Count 5.38 4.60 - 5.80 X10*6/uL [facility] Hemoglobin 15.3 14.0 - 18.0 g/dl [facility] Hematocrit 45.2 42.0 - 52.0 % [facility] Mean Corpuscular Volume 84.0 80.0 - 98.0 fL [facility] Mean Corpuscular Hemoglobin 28.4 27.0 - 33.0 pg [facility] Mean Corpuscular HGB Conc 33.8 31.0 - 36.0 g/dl [facility] Red Cell Distribution Width 13.3 11.0 - 16.0 % [facility] Platelet Count 177 160 - 400 X10*3/uL [facility] Mean Platelet Volume 11.2 9.4 - 12.4 fL [facility] Neutrophils Percent Auto 54.3 45 - 73 % [facility] Imm Gran Pct Auto 0.2 0.0 - 0.4 % [facility] Lymphocytes Percent Auto 34.6 20 - 40 % [facility] Monocytes Percent Auto 8.8 2 - 11 % [facility] Eosinophils Percent Auto 1.5 0 - 4 % [facility] Basophils Percent Auto 0.6 0 - 2 % [facility] NRBC Pct Auto 0.0 0.0 - 0.2 /100WBC [facility] Neutrophils Absolute Auto 4.7 2.0 - 8.3 x10*3/uL [facility] Imm Gran Abs Auto 0.02 0.00 - 0.03 X10*3/uL [facility] Lymphocytes Absolute Auto 3.0 1.2 - 4.9 X10*3/uL [facility] Monocytes Absolute Auto 0.8 0.1 - 1.2 X10*3/uL [facility] Eosinophils Absolute Auto 0.1 0.0 - 0.4 X10*3/uL [facility] Basophils Absolute Auto 0.1 0.0 - 0.2 X10*3/uL [facility] NRBC Abs Auto 0.000 0.0 - 0.012 X10*3/uL [facility] 11/19/2024 8:55 AM EDT 11/19/2024 8:55 AM EDT us Generic External Data Provider LAB BLOOD ORDERAB LES Final Result [facility] [address] [place] [address] [phone] * Methylmalonic Acid (11/19/2024 8:55 AM EDT) Methylmalonic Acid 319 55 - 335 nmol/L [facility] Comment: Serum methylmalonic acid (MMA) levels [...] outcomes,such as neural tube defects and intrauterine growthrestriction.[employer] utilized Multi-Modal Decomposition(MMD) analysis to establish first and second trimester-specific MMA reference intervals in , as givenbelow:MMA, First trimester (<13 wks gestation): 58-167 nmol/LMMA, Second trimester (13-23 wks gestation):63-241 nmol/LThis test was developed and its analytical performancecharacteristics have been determined by [employer]. It has not been cleared or approved by theA. This assay has been validated pursuant to the CLIAregulations and is used for clinical purposes.THIS TEST WAS PERFORMED AT:[employer]/[facility] [place], [place] ??[id number] THAO MD,PHD 11/19/2024 8:55 AM EDT 11/19/2024 8:55 AM EDT us Generic External Data Provider LAB BLOOD ORDERAB LES Final Result [facility] [address] [place] [phone] * Iron And Total Iron Binding Capacity (11/19/2024 8:55 AM EDT) Iron 45 45 - 160 mcg/dL [facility] Total Iron Binding Capacity 267 228 - 428 mcg/dL [facility] Percent Iron Saturation 17 15 - 50 % [facility] Unsaturated Iron Binding 222 ug/dL [facility] 11/19/2024 8:55 AM EDT 11/19/2024 8:55 AM EDT us Generic External Data Provider LAB BLOOD ORDERAB LES Final Result Performing Organization Address [facility]/ZIP Co de Phone Number [facility] [address] [place] [address] [phone] * Sed Rate by Modified Arturoren (11/19/2024 8:55 AM EDT) Erythrocyte Sedimentation Rate 12 0 - 15 MM/HR [facility] Comment:Patients with polycy themia and many hemoglobin abnormalitiesmay have depressed sed rates whereas patients with anemiamay have elevated sed rates. 11/19/2024 8:55 AM EDT 11/19/2024 8:55 AM EDT Generic External Data Provider LAB BLOOD ORDERAB LES Final Result Performing Organization Address [facility] Co de Phone Number [facility] [address] [place] [phone] * (ABNORMAL) Triglycerides (11/19/2024 8:55 AM EDT) Triglycerides 248(H) <150 mg/dL [facility] Comment:Desirable Triglyceri de: less than 150 mg/dLBorderline High Triglyceride 150-199 mg/dLHigh Triglyceride: 200-499 mg/dLVery High Triglyceride: greater than or equal to 5OO mg/dL Blood Venous blood specimen / Unknown 11/19/2024 8:55 AM EDT 11/19/2024 8:55 AM EDT Shanda Rg [employer] LAB BLOOD ORDERABLES Final Resu lt Performing Organization Address [facility]/ZIP Co de Phone Number [facility] [address] [place] [address] [phone] * Vitamin B6, Plasma (11/19/2024 8:55 AM EDT) Vitamin B6 8.6 2.1 - 21.7 ng/mL [facility] Comment:Vitamin supplementat ion within 24 hours prior toblood draw may affect the accuracy of the results.This test was developed and its analytical performancecharacteristics have been determined by [employer] [place], [place]. It hasnot been cleared or approved by the U.S. Food and DrugAdministration. This assay has been validated pursuantto the CLIA regulations and is used for clinicalpurposes.THIS TEST WAS PERFORMED AT:[facility] [place] [address]LSUUQVAZANA THAO MD,PHD 11/19/2024 8:55 AM EDT 11/19/2024 8:55 AM EDT Generic External Data Provider LAB BLOOD ORDERAB LES Final Result Performing Organization Address [facility] de Phone Number [facility] [address] [place] [phone] * (ABNORMAL) Homocysteine (11/19/2024 8:55 AM EDT) Homocysteine 13.0(A) <11.4 umol/L [facility] Comment:Homocysteine is incr eased by functional deficiency offolate or vitamin B12. Testing for methylmalonic aciddifferentiates between these deficiencies. Other causesof increased homocysteine include renal failure, folateantagonists such as methotrexate and phenytoin, andexposure to nitrous oxide.Carmela Licona, et al., [employer]. 1999;131(5):331-9.THIS TEST WAS PERFORMED AT:[facility] [address] [address]VWEBZGAMA PALACIO MD 11/19/2024 8:55 AM EDT 11/19/2024 8:55 AM EDT Generic External Data Provider LAB BLOOD ORDERAB LES Final Result Performing Organization Address [facility] Co de Phone Number [facility] [address] [place] [phone] * (ABNORMAL) Hemoglobin A1c (11/19/2024 8:55 AM EDT) Hemoglobin A1c 6.8(H) <6.0 % [facility] Comment:Hemoglobin A1C Refer ence Range Adults: 4.8 - 6.0 % Non diabetic: < 6.0 % Goal: < 7.0 %Additional Action Suggested: > 8.0 %Note: Hemoglobin A1c results are invalid for patients with abnormal amounts of HbF. Blood transfusions may impact the HbA1c concentration in the patient sample. Estimated Average Glucose 148 mg/dL [facility] Comment:eAG = Estimated ave rage glucose which is %A1C expressed asaverage glucose, using the formula of the Y2L-EdhqohkOlnhpac Glucose study (ADAG), Diabetes Care, Vol.31,#8,2007 11/19/2024 8:55 AM EDT 11/19/2024 8:55 AM EDT Generic External Data Provider LAB BLOOD ORDERAB LES Final Result Performing Organization Address [facility] Co de Phone Number [facility] [address] [place] [phone] * Ferritin (11/19/2024 8:55 AM EDT) Pathologist [facility] Ferritin 202 20 - 250 ng/mL [facility] 11/19/2024 8:55 AM EDT 11/19/2024 8:55 AM EDT Generic External Data Provider LAB BLOOD ORDERAB LES Final Result Performing Organization Address [facility] Co de Phone Number [facility] [address] [place] [phone] * (ABNORMAL) Comprehensive Metabolic Panel (11/19/2024 8:55 AM EDT) Pathologist [facility] Sodium 139 135 - 145 mmol/L [facility] Potassium 4.3 3.3 - 5.1 mmol/L [facility] Chloride 106 96 - 108 mmol/L [facility] Carbon Dioxide 26 22 - 29 mmol/L [facility] Anion Gap 11(L) 12 - 20 [facility] Urea Nitrogen (BUN) 28(H) 9 - 16 mg/dL [facility] Creatinine, Serum 1.28 0.5 - 1.4 mg/dL [facility] Estimated Glomerular Filt Rate 58 [facility] Comment:Chronic Kidney Disea se: Estimated GFR < 60 mL/min/[id number] Kidney Disease: Estimated GFR < 15 mL/min/1.73m2 Glucose 125(H) 60 - 115 mg/dL [facility] Calcium 9.5 8.4 - 10.2 mg/dL [facility] Bilirubin, Total 0.3 0.0 - 1.0 mg/dL [facility] Aspartate Amino Transferase 19 5 - 37 U/L [facility] Alanine Aminotransferase 27 0 - 40 U/L [facility] Total Protein 7.4 6.5 - 8.0 g/dL [facility] Albumin Level 4.1 3.5 - 5.0 g/dL [facility] Alkaline Phosphatase 108 39 - 117 U/L [facility] 11/19/2024 8:55 AM EDT 11/19/2024 8:55 AM EDT us Generic External Data Provider LAB BLOOD ORDERAB LES Final Result Performing Organization Address City/State/[facility] Co de Phone Number [facility] [address] [place] [phone] * POCT ADRIAN-14 Urine Drug Screen (10/02/2024 1:58 PM EST) Urine Urine specimen obtained by clean catch procedure / Unknown 10/02/2024 1:58 PM EST Cait Moreira RN - 10/02/2024 1:58 PM EST [employer] cup Lot#[id number] Exp. 05/22/26 Internal Pass Control Negative for all substances us Shanda Appram [employer] POINT OF CARE TEST ENTER/EDIT O RDERABLES Final Result * Albumin, Random Urine W/Creatinine (09/05/2024 8:35 AM EST) Creatinine, Urine 117.04 mg/dL [facility] Microalbumin Urine 8.0 mg/L [facility] Microalbum Creatinine Ratio Ur 6.8 <30 ug/mg cr [facility] Comment:Albumin/Creatinine R atio Reference Ranges: Normal: < 30 ug/mg creatinine Microalbuminuria: 30 - 300 ug/mg creatinineClinical Albuminuria: > 300 ug/mg creatinine Urine (Urine, Random) 09/05/2024 8:35 AM EST 09/05/2024 11:21 AM EST Shanda Rg NP LAB URINE ORDERABLES Final Resu lt [facility] [address] [place] [phone] * (ABNORMAL) Lipid Panel, Standard (09/05/2024 8:35 AM EST) Triglycerides 344(H) <150 mg/dL [facility] Comment:Mild Lipemia.Desirab le Triglyceride: less than 150 mg/dLBorderline High Triglyceride 150-199 mg/dLHigh Triglyceride: 200-499 mg/dLVery High Triglyceride: greater than or equal to 5OO mg/dL Cholesterol 183 <200 mg/dL [facility] Comment:Desirable Cholestero l: less than 200 mg/dLBorderline High Cholesterol: 200-239 mg/dLHigh Cholesterol: greater than 239 mg/dL LDL Cholesterol Calculated 82 <100 mg/dL [facility] Comment:Desirable LDL: less than 100 mg/dLNear Optimal/Above Optimal LDL: 110- 129 mg/dLBorderline High LDL: 130-159 mg/dLHigh LDL: 160-189 mg/dLVery High LDL: greater than or equal to 190 mg/dL HDL Cholesterol 33(L) >40 mg/dL [facility] Comment:Desirable HDL: great er than 40 mg/dL Note: This HDL assay may give artificially low results in patients with liver disease. Blood Venous blood specimen / Unknown 09/05/2024 8:35 AM EST 09/05/2024 11:23 AM EST [facility] LAB BLOOD ORDERABLES Final Resu lt Performing Organization Address [facility] Co de Phone Number [facility] [address] [place] [address] [phone] * Hepatitis C Antibody with Reflex to HCV, RNA, Quantitative, Real-Time PCR (11/09/2023 3:25 PM EDT) Hepatitis C Antibody Nonreactive Nonreactive [facility] Comment:Antibodies to HCV no t detected; does not exclude early acuteHCV infection. Blood Venous blood specimen / Unknown 11/09/2023 3:25 PM EDT 11/09/2023 3:25 PM EDT [facility] LAB BLOOD ORDERABLES Final Resu lt Performing Organization Address [facility] Co de Phone Number [facility] [address] [place] [phone] * HIV-1/2 Antigen and Antibodies, Fourth Generation, with Reflexes (11/09/2023 3:25 PM EDT) HIV AB/AG Nonreactive Nonreactive [facility] Comment:HIV-1 p24 Ag and/or HIV-1/HIV-2 Ab not detected.A test result that is nonreactive does not exclude thepossibility of exposure to or infection with HIV-1 and/orHIV-2. Nonreactive results in this assay for individualswith prior exposure to HIV-1 and/or HIV-2 may be due toantigen and antibody levels that are below the limit ofdetection of this assay.The [place]. [employer]. [employer] HIV Ag/Ab Combo assay result andsupplemental assay results should be interpreted inconjunction with the patient's clinical presentation,history and other laboratory results. If the results areinconsistent with clinical evidence, additional testing issuggested to confirm the result. Blood Venous blood specimen / Unknown 11/09/2023 3:25 PM EDT 11/09/2023 3:25 PM EDT Shanda Rg NP LAB BLOOD ORDERABLES Final Resu lt [facility] [address] [place] [phone] [phone] * Colonoscopy (07/12/2021) [facility] Signature Colonoscopy normal Historical Provider HEALTH MAINTENANCE Edited Result - Final from Last 3 Months or Most Recently Relevant to Health Maintenance Insurance [address] [place] [address] [facility] [address] [place] [phone] [address] [place] [address] [address] [place], [place] Care Teams Fund Development Manager Relationship Specialty Start Date End Date Shanda Rg NP [address] [place] [id number] PCP - General Family Medicine 06/06/23 Jas Cordero FNP [address] [place] [address] Nurse Practitioner Family Medicine 07/24/23 Aixa Ng Sustainability Executive DirectorBeading Machine Operator 09/11/23
--- OUTSIDE RECORDS SUMMARY | 2024-12-30 21:23 | XMS_ITS | Clinical Summary ---
Author Organization Unknown Care Team Providers Care Chilling Hood Operator Name Role Phone TERRELL ARENAS, JAMILA Unavailable Unavailable RAYO RN, RAFI Unavailable Unavailable Payers Payer Name Policy Type Policy Number Effective Date Expira tion Date MEDICAID [facility] [id number] Problems Condition Name Condition Details Condition Category [...] 2023-08 00:00: 00 09-23 23:59 :00 No [id number] 1 tablet EVERY AM 1 tablet EVERY AM (route: oral) Med Classific ation: Cardiovas cular Therapy Agents aripiprazol e 20 mg tablet 2023-08 00:00: 00 09-23 23:59 :00 No [id number] 1 tablet BEDTIME 1 tablet BEDTIME (route: oral) Med Classific ation: Central Nervous System Agents atorvastati n 80 mg tablet 2023-08 00:00: 00 09-23 23:59 :00 No [id number] 1 tablet BEDTIME 1 tablet BEDTIME (route: oral) Med Classific ation: Cardiovas cular Therapy Agents buspirone 30 mg tablet 2023-08 00:00: 00 09-23 23:59 :00 No [id number] 1 tablet 3 TIMES DAILY 1 tablet 3 TIMES DAILY (route: oral) Med Classific ation: Central Nervous System Agents cetirizine 10 mg tablet 2023-08 00:00: 00 09-23 23:59 :00 No [id number] 1 tablet EVERY AM 1 tablet EVERY AM (route: oral) Med Classific ation: Respirato ry Therapy Agents eszopiclone 3 mg tablet 2023-08 00:00: 00 09-23 23:59 :00 No [id number] 1 tablet BEDTIME 1 tablet BEDTIME (route: oral) Med Classific ation: Central Nervous System Agents folic acid 1 mg tablet 2023-08 00:00: 00 09-23 23:59 :00 No [id number] 1 tablet EVERY AM 1 tablet EVERY AM (route: oral) Med Classific ation: Electroly te Balance-N utritiona l Products furosemide 20 mg tablet 2023-08 00:00: 00 09-23 23:59 :00 No [id number] 1 tablet EVERY AM 1 tablet EVERY AM (route: oral) Med Classific ation: Cardiovas cular Therapy Agents gabapentin 300 mg capsule 2023-08 00:00: 00 09-23 23:59 :00 No [id number] 1 capsule 2 TIMES DAILY 1 capsule 2 TIMES DAILY (route: oral) Med Classific ation: Central Nervous System Agents gabapentin 300 mg capsule 2023-08 00:00: 00 09-23 23:59 :00 No [id number] 2 capsule BEDTIME 2 capsule BEDTIME (route: oral) Med Classific ation: Central Nervous System Agents losartan 100 mg-hydrochl orothiazide 12.5 mg tablet 2023-08 00:00: 00 09-23 23:59 :00 No [id number] 1 tablet EVERY AM 1 tablet EVERY AM (route: oral) Med Classific ation: Cardiovas cular Therapy Agents metformin 500 mg tablet 2023-08 00:00: 00 09-23 23:59 :00 No [id number] 1 tablet EVERY AM 1 tablet EVERY AM (route: oral) Med Classific ation: Endocrine metoprolol tartrate 100 mg tablet 2023-08 00:00: 00 09-23 23:59 :00 No [id number] 1 tablet 2 TIMES DAILY 1 tablet 2 TIMES DAILY (route: oral) Med Classific ation: Cardiovas cular Therapy Agents mirtazapine 15 mg tablet 2023-08 00:00: 00 09-23 23:59 :00 No [id number] 0.5 tablet BEDTIME 0.5 tablet BEDTIME (route: oral) Med Classific ation: Central Nervous System Agents Risperdal 0.5 mg tablet 2023-08 00:00: 00 09-23 23:59 :00 No [id number] 1 tablet BEDTIME 1 tablet BEDTIME (route: oral) Med Classific ation: Central Nervous System Agents ropinirole 0.5 mg tablet 2023-08 00:00: 00 09-23 23:59 :00 No [id number] 2 tablet 2 TIMES DAILY 2 tablet 2 TIMES DAILY (route: oral) Med Classific ation: Central Nervous System Agents venlafaxine ER 150 mg capsule,ext ended release 24 hr 2023-08 00:00: 00 09-23 23:59 :00 No [id number] 1 capsule DAILY 1 capsule DAILY (route: oral) Med Classific ation: Central Nervous System Agents Vitamin D3 50 mcg (2,000 unit) capsule 2023-08 00:00: 00 09-23 23:59 :00 No [id number] 1 capsule EVERY AM 1 capsule EVERY AM (route: oral) Med Classific ation: Electroly te Balance-N utritiona l Products amlodipine 5 mg tablet 2- 00:00: 00 Yes [id number] 1 tablet DAILY 1 tablet DAILY (route: oral) Med Classific ation: Cardiovas cular Therapy Agents atorvastati n 80 mg tablet 2- 00:00: 00 Yes [id number] 1 tablet BEDTIME 1 tablet BEDTIME (route: oral) Med Classific ation: Cardiovas cular Therapy Agents folic acid 1 mg tablet 2- 00:00: 00 Yes [id number] 1 tablet DAILY 1 tablet DAILY (route: oral) Med Classific ation: Electroly te Balance-N utritiona l Products furosemide 20 mg tablet 2- 00:00: 00 Yes [id number] 1 tablet DAILY 1 tablet DAILY (route: oral) Med Classific ation: Cardiovas cular Therapy Agents gabapentin 300 mg capsule 2- 00:00: 00 Yes [id number] 1 capsule 2 TIMES DAILY 1 capsule 2 TIMES DAILY (route: oral) Med Classific ation: Central Nervous System Agents gabapentin 300 mg capsule 2- 00:00: 00 Yes [id number] 2 capsule BEDTIME 2 capsule BEDTIME (route: oral) Med Classific ation: Central Nervous System Agents losartan 100 mg tablet 2- 00:00: 00 Yes [id number] 1 tablet DAILY 1 tablet DAILY (route: oral) Med Classific ation: Cardiovas cular Therapy Agents metformin 500 mg tablet 2- 00:00: 00 Yes [id number] 1 tablet EVERY AM 1 tablet EVERY AM (route: oral) Med Classific ation: Endocrine metoprolol tartrate 100 mg tablet 2- 00:00: 00 Yes [id number] 1 tablet 2 TIMES DAILY 1 tablet 2 TIMES DAILY (route: oral) Med Classific ation: Cardiovas cular Therapy Agents venlafaxine 75 mg tablet 2- 00:00: 00 11-26 23:59 :00 No [id number] 1 tablet DAILY 1 tablet DAILY (route: oral) Med Classific ation: Central Nervous System Agents venlafaxine ER 150 mg tablet,exte nded release 24 hr - 00:00: 00 11-23 23:59 :00 No [id number] 1 tablet DAILY 1 tablet DAILY (route: oral) Med Classific ation: Central Nervous System Agents Vitamin D3 50 mcg (2,000 unit) capsule 2- 00:00: 00 Yes [id number] 1 capsule DAILY 1 capsule DAILY (route: oral) Med Classific ation: Electroly te Balance-N utritiona l Products zolpidem 10 mg tablet 2- 00:00: 00 Yes [id number] .5 tablet BEDTIME .5 tablet BEDTIME (route: oral) Med Classific ation: Central Nervous System Agents Abilify 15 mg tablet - 00:00: 00 Yes [id number] 1 tablet DAILY 1 tablet DAILY (route: oral) Med Classific ation: Central Nervous System Agents cetirizine 10 mg tablet 2- 00:00: 00 Yes [id number] 1 tablet DAILY 1 tablet DAILY (route: oral) Med Classific ation: Respirato ry Therapy Agents ropinirole 0.5 mg tablet 2- 00:00: 00 Yes [id number] 1 tablet BEDTIME 1 tablet BEDTIME (route: oral) Med Classific ation: Central Nervous System Agents Senna Laxative 8.6 mg tablet - 00:00: 00 Yes [id number] 1 tablet BEDTIME 1 tablet BEDTIME (route: oral) Med Classific ation: Gastroint estinal Therapy Agents tramadol 50 mg tablet 2- 00:00: 00 Yes [id number] 2 tablet EVERY 12 HOURS 2 tablet EVERY 12 HOURS (route: oral) Med Classific ation: Analgesic , Anti-infl ammatory or Antipyret ic buspirone 15 mg tablet 3- 00:00: 00 Yes [id number] 1 tablet 3 TIMES DAILY 1 tablet 3 TIMES DAILY (route: oral) Med Classific ation: Central Nervous System Agents mirtazapine 7.5 mg tablet 3- 00:00: 00 Yes [id number] 1 tablet BEDTIME 1 tablet BEDTIME (route: oral) Med Classific ation: Central Nervous System Agents risperidone 1 mg tablet 10-26 00:00: 00 Yes [id number] 1 tablet BEDTIME 1 tablet BEDTIME (route: oral) Med Classific ation: Central Nervous System Agents venlafaxine 75 mg tablet 11-28 00:00: 00 Yes [id number] 1 tablet DAILY 1 tablet DAILY (route: oral) Med Classific ation: Central Nervous System Agents cyanocobala min (vit B-12) 500 mcg tablet 12-01 00:00: 00 Yes [id number] 1 tablet EVERY AM 1 tablet EVERY AM (route: oral) Med Classific ation: Electroly te Balance-N utritiona l Products mecobalamin (vitamin B12) 500 mcg chewable tablet 12-07 00:00: 00 Yes [id number] 1 tablet DAILY 1 tablet DAILY (route: [...] AWARENESS FOR SAFETY AND WILL NOTIFY CLINICAL TRAVEL OCCUPATIONAL THERAPIST AND PHYSICIAN/PROVIDER WITH ANY CHANGE IN CONDITION. [code = SKILLED NURSE WILL MAINTAIN SITUATIONAL AWARENESS FOR SAFETY AND WILL NOTIFY CLINICAL TRAVEL OCCUPATIONAL THERAPIST AND PHYSICIAN/PROVIDER WITH ANY CHANGE IN CONDITION.] [...] WEEKEND NURSING VISIT. MED SET UP FROM [facility] 12/30/24- SLEEP STUDY</paragraph> Encounters Start Date/Time End Date/Time Encounter Type Admission Type Attending [facility] Care Department Encounter ID Discharge Date Discharge Status Discharge Condition Discharge Reason Percent Goals Met 2024-09-29 00:00:00 2025-01-26 00:00:00 Outpatient RECERTIFIC RAFI JIMENEZ [facility] [id number] 75.0 0
--- OUTSIDE RECORDS SUMMARY | 2024-12-30 21:23 | XMS_ITS | Encounter Summary ---
Author Organization [employer] Address [address] [place] [address] 7[address] [place] [address] Care Team Providers Care Correctional Substance Abuse Counselor Name Role Phone DreJada Primary Care Provider [phone] Shanda Rg NP Primary Care Provider [phone] Jas Cordero Unavailable Unavailable Reason for Visit * Reason Comments Med Refill Encounter Details Date Type Department Care Team ([facility] st Contact Info) Description 10/31/2022 Refill [facility] MED[facility]INE [address] [place] [address] Jas Cordero FNP Major depressive disorder with [...] 11/02/2022 11:52 AM EST FYI, Pt had LIME BURNER RV today. Urine/Pill count WNL. Bp 152/108, stated he had taken his blood pressure medication this morning. documented in this encounter Plan of Treatment Upcoming Encounters Date Type Department Care Team (Late st Contact Info) Description 01/06/2025 2:45 PM EDT Office Visit [address] [address] Shanda Rg NP [address] [place] [address] 01/30/2025 1:00 PM EDT Clinical Support [address] [address] Cait Velazquez RN documented as of this encounter Visit Diagnoses Diagnosis Major depressive disorder with psychotic features (CMS/HCC) documented in this encounter Additional Health Concerns Assessment Noted Time PHQ-9 Depression Total Score: 9 09/27/19 23 9:22 AM EST documented as of this encounter Care Teams Correctional Substance Abuse Counselor Relationship Specialty Start Date End Date Jada Erickson FNP PCP - General Family Medicine 10/27/22 06/05/23 Shanda Rg NP [address] [place] [address] PCP - General Family Medicine 06/06/23 Jas Cordero FNP [address] [place] [address] Nurse Practitioner Family Medicine 07/24/23 Aixa Ng Soil Fertility SpecialistBatch Maker 09/11/23 documented as of this encounter
--- OUTSIDE RECORDS SUMMARY | 2024-12-30 21:23 | XMS_ITS | Encounter Summary ---
Author Organization [employer] Address [address] [place] [address] 7[address] [place] [address] Care Team Providers Care Machine Filler Shredder Name Role Phone Shanda Rg NP Primary Care Provider [phone] Jas Cordero Unavailable Unavailable Reason for Visit * Reason Onset Date Comments reschedule appointment 12/25/2024 Encounter Details Date Type Department Care Team (Late st Contact Info) Description 12/25/2024 Refill [facility] [address] [place] [address] Sudha Werner MA Chronic pain of both knees Social History [...] your housing situation today? I have conrado sing 09/04/[address] you li [...] as of this encounter Miscellaneous Notes * Addendum Note - Luiz Mcgrath RN - 12/25/2024 3:12 PM EDTAddended by: LUIZ MCGRATH on: 12/25/2024 03:12 PM Modules accepted: Orders * Telephone Encounter - Luiz Mcgrath RN - 12/25/2024 3:05 PM EDT Sudha Escobar MA spoke to program writer regarding pt request for refill of tramadol as they are leaving for [place] on 01/10/25 and returning on 01/19/25. Masspat checked on 12/25/24. Pt picked up a 28 day supply of traMADol (Ultram) 50 MG tablet on 11/29/24. Pt not due for refill until 12/27/24. Medication pended to PCP with a starting date of 12/27/24 for review. Message forwarded to PCP to review and advise. * Telephone Encounter - Sudha Werner MA - 12/25/2024 2:42 PM EDT T/C placed spoke with pt, pt original appointment 01/01/25 was rescheduled to 01/06/25 due PCP will beout. pt agreed to come to this appointment. documented in this encounter Plan of Treatment Upcoming Encounters Date Type Department Care Team (Late st Contact Info) Description 01/06/2025 2:45 PM EDT Office Visit [address] [address] Shanda Rg NP [address] [place] [address] 01/30/2025 1:00 PM EDT Clinical Support [address] [address] Cait Velazquez RN documented as of this encounter Visit Diagnoses Diagnosis Chronic pain of both knees documented in this encounter Additional Health Concerns Assessment Noted Time PHQ-9 Depression Total Score: 23 025 2:34 PM EST documented as of this encounter Care Teams Machine Filler Shredder Relationship Specialty Start Date End Date Shanda Rg NP [address] [place] [address] PCP - General Family Medicine 06/06/23 Jas Cordero FNP [address] [place] [address] Nurse Practitioner Family Medicine 07/24/23 Aixa Ng Biological Plant OperatorMix Mill Tender 09/11/23 documented as of this encounter
--- OUTSIDE RECORDS SUMMARY | 2024-12-30 21:23 | XMS_ITS | Encounter Summary ---
Author Organization [employer] Address [address] [place] [address] 7 [place] [address] Care Team Providers Care Splunk Consultant Name Role Phone Shanda Rg NP Primary Care Provider [phone] Jas Cordero Unavailable Unavailable Reason for Visit * Reason Onset Date Comments Med Refill 03/25/2024 Encounter Details Date Type Department Care Team (Late st Contact Info) Description 03/25/2024 Telephone [facility] MEDICINE [address] [place] [address] Shanda Rg NP [address] [place], [place] [id number] Med Refill Social History Tobacco Use Types [...] qty - 112 for 28 dayssupply. From [facility] pharmacy. * Telephone Encounter - Jean Rosario - 03/25/2024 1:38 PM EDT TC from pt requesting medication refill. Medications needing refill: traMADol (Ultram) 50 MG tablet To be sent to: [facility] Pharmacy documented in this encounter Plan of Treatment Upcoming Encounters Date Type Department Care Team (Late st Contact Info) Description 01/06/2025 2:45 PM EDT Office Visit [facility] MEDICINE [address] [place] [address] Shanda Rg NP [address] [place] [address] 01/30/2025 1:00 PM EDT Clinical Support [facility]INE [address] [place] [address] Cait Velazquez, RN documented as of this encounter Visit Diagnoses Not on filedocumented in this encounter Additional Health Concerns Assessment Noted Time PHQ-9 Depression Total Score: 9 01/30/20 24 9:09 AM EDT documented as of this encounter Care Teams Splunk Consultant Relationship Specialty Start Date End Date Shanda Rg NP [address] [place] [address] PCP - General Family Medicine 06/06/23 Jas Cordero FNP [address] [place] [address] Nurse Practitioner Family Medicine 07/24/23 Aixa Ng Direct Support Professional CaregiverWeather Teacher 09/11/23 documented as of this encounter
--- OUTSIDE RECORDS SUMMARY | 2024-12-30 21:23 | XMS_ITS | Clinical Summary ---
Author Organization [facility] Address [address] [place] [address] Care Team Providers Care Warehouse Incentive Selector Name Role Phone Unavailable Primary Care Provider [...] that showed slight lumbar dextrocurvature with trace hewl-wc-obzep lateral lithesis at L4-L5. Trace anterolithesis at [...] Major depressive disorder with psychotic feature s ([facility]) 08/16/2022 Overview (05/09/2024): Last Assessment & [...] will be transferred to new [facility] Psychiatric Prescriber. Pt is aware that those appointments will be via televisit, and that the provider is not an [facility] employee. He gives verbal consent to [...] 2 diabetes mellitus without complication ([facility]) 12/16/2016 Overview (05/09/2024): Education provided re: therapeutic [...] - 19 + 3-dose series) 05/11/2023 04/13/2023 Plg-EPIVO-13 ( season) 2024 09/02/2022, 2021, 12/07/2020, Additional history exists Imm-Influenza (#1) 2024 07/10/2020, 0 05/16/2018, 05/19/2016 Diabetes HbA1c 05/05/2024 11/03/2023, 03/28, 06/08/2022, Additional history exists Alcohol and Drug Screen 08/28/2024 Lipid Screening 11/08/2024 11/09/2023 Imm-DTaP/Tdap/Td (2 - Td or Tdap) 07/03/2029 019 Imm-Zoster, Recombinant Completed 09/23/2020, 07/10 Imm-Pneumococcal Completed 04/13/2023, 08/2021, 07/03/2019 HIV Screening Completed 11/09/2023, 11/09/2023 Hepatitis C Screening Completed 11/09/2023 Insurance [place] MEDICAID [facility]
--- OUTSIDE RECORDS SUMMARY | 2024-12-30 21:23 | XMS_ITS | Encounter Summary ---
Author Organization [employer] Address [address] [place] [address] 7 [place] [address] Care Team Providers Care Medical Equipment Repair Technician Name Role Phone Shanda Rg NP Primary Care Provider [phone] Jas Cordero Unavailable Unavailable Reason for Visit * Reason Onset Date Comments Med Refill 12/30/2024 Encounter Details Date Type Department Care Team (Late st Contact Info) Description 12/30/2024 Telephone [facility] [address] [place] [address] Shanda Rg NP [address] [facility] [place] [address] Med Refill Social History Tobacco Use Types [...] Telephone Encounter - Rosemarie Mcgrath RN - 12/30/2024 1:33 PM EDT Masspat checked by bond writer on 12/30/24. Pt picked up a 28 day supply of traMADol (Ultram) 50 MG [place] 11/29/24. Pt due for refill. [place] notes medication pended to PCP for review on 12/25/24. Telephone note from 11/28/24 forwarded to PCP again today 12/30/24 with the pended medication. See telephone note from 12/25/24. * Telephone Encounter - Kary Jo LPN - 12/30/2024 1:05 PM EDT Received request on traMADol (Ultram) 50 MG tablet documented in this encounter Plan of Treatment Upcoming Encounters Date Type Department Care Team (Bryce Contact Info) Description 01/06/2025 2:45 PM EDT Office Visit [address] [address] Shanda Rg NP [address] [place] [address] 01/30/2025 1:00 PM EDT Clinical Support [address] [address] Cait Velazquez, LUCY documented as of this encounter Visit Diagnoses Not on filedocumented in this encounter Additional Health Concerns Assessment Noted Time PHQ-9 Depression Total Score: 23 025 2:34 PM EST documented as of this encounter Care Teams Medical Equipment Repair Technician Relationship Specialty Start Date End Date Shanda Rg NP [address] [place] [address] PCP - General Family Medicine 06/06/23 Jas Cordero FNP [address] [place] [address] Nurse Practitioner Family Medicine 07/24/23 Aixa Ng Third MillerAssembly Machine Tool Setter 09/11/23 documented as of this encounter
== END ==
LOC: HO.SL 20:30
PROVIDERS: PCP Registered Nurse; Visit Provider Nurse Practitioner Family
DX: G47.33 Obstructive sleep apnea (adult) (pediatric) (principal)
CPT/HCPCS: 95810

== ENCOUNTER → 2024-12-30 22:30 | Outpatient (BNV) | payer MEDICAID, SELFPAY | PROVIDERS: PCP Registered Nurse; Visit Provider Psychiatry & Neurology Neurology | DX: G47.33 Obstructive sleep apnea (adult) (pediatric) (principal) | CPT/HCPCS: 95810 ==

== ENCOUNTER 2025-04-25 16:03 | Outpatient (REF) | payer MEDICAID, SELFPAY ==
--- OUTSIDE RECORDS SUMMARY | 2025-04-25 15:15 | XMS_ITS | Encounter Summary ---
Author Organization [employer] Address [address] [place] [address] 7 [place] [address] Care Team Providers Care Ship Painter Helper Name Role Phone Shanda Rg NP Primary Care Provider [phone] Jas Cordero Unavailable Unavailable Reason for Visit * Reason Comments sick onsite Encounter Details Date Type Department Care Team ([facility] st Contact Info) Description 04/25/2025 3:15 PM EDT Office Visit [facility] MEDICINE [address] [place] [address] Shanda Rg NP [address] [place] [address] Generalized joint pain (Primary Dx) Social History Tobacco Use Types Packs/Day Years Used Date Smoking Tobacco: Former Cigarettes Q uit: 10/02/2002 Passive Smoke Exposure: Past Smokeless Tobacco: Never Alcohol Use Standard Drinks/Week Comments Never 0 (1 standard drink = 0.6 oz pur e alcohol) Depression Answer Date Recorded Patient Health Questionnaire-9 Score 17 03/07/2025 Patient Health Questionnaire-9 Score 17 03/07/2025 Last PHQ-9: Questionnaire Data Not on file 0 03/07/2025 Housing Stability Answer Date Recorded What is your housing situation today? I have conrado osborn 03/07/[address] you li ve. Do you have problems with any of the following? None of the above 03/07/2025 Food Insecurity Answer Date Recorded Within the past 12 months, y ou worried that your food would run out before you got money to buy more: Sometimes True 2024 Within the past 12 months,th e food you bought just didn't last and you didn't have enough money to get more: Often true 03/07/2025 Transportation Answer Date Recorded In the past [...] Date Recorded Patient Health Questionnaire-2 Score 2 03/07/2025 Internet Access Answer Date Recorded Internet Access Q1 Yes 03/07/2025 Internet Access Q2 I cannot afford it 03/07/2025 Sex and Gender Information Value Date Recorded Sex Assigned at Male 06/27/2022 10:29 AM EDT Legal Sex Male 10:29 AM EDT Gender Identity Male 06/27/2022 10:29 AM EDT Sexual Orientation Straight 06/27/2022 10 :29 AM EDT documented as of this encounter Last Filed Vital Signs Vital Sign Reading Time Taken Comments Blood Pressure 142/98 04/25/2025 3:39 PM EDT Pulse 87 04/25/2025 3:39 PM EDT Temperature 37 C (98.6 F) 04/25/2025 3:39 PM EDT Respiratory Rate 21 04/25/2025 3:39 PM EDT Oxygen Saturation 97% 04/25/2025 3:39 PM EDT Inhaled Oxygen Concentration - - Weight 98.2 kg (216 lb 6.4 oz) 04/25/2025 3:39 P M EDT Height 167.6 cm (5' 6 ) 04/25/2025 3:39 PM EDT Body Mass Index 34.93 04/25/2025 3:39 PM EDT documented in this encounter Plan of Treatment Upcoming Encounters Date Type Department Care Team (Late st Contact Info) Description 07/09/2025 9:00 AM EST Clinical Support [facility] MEDICINE [address] [place] [address] Cait Velazquez, RN Scheduled Orders Name Type Priority Associated Diagnoses Orde r Schedule Cyclic Citrullinated Peptide (CCP) Antibody (IgG) Lab Routine Generalized joint pain Expected: 04/25/2025 (Approximate), Expires: 04/25/2026 Rheumatoid Factor Lab Routine Generalized joint pain Expected: 04/25/2025 (Approximate), Expires: 04/25/2026 C-reactive Protein Lab Routine Generalized joint pain Expected: 04/25/2025 (Approximate), Expires: 04/25/2026 Sed Rate by Modified [place] Lab Routine Generalized joint pain Expected: 04/25/2025, Expires: 04/25/2026 documented as of this encounter Visit Diagnoses Diagnosis Generalized joint pain- Primary documented in this encounter Additional Health Concerns Assessment Noted Time PHQ-9 Depression Total Score: 17 025 3:44 PM EDT documented as of this encounter Care Teams Ship Painter Helper Relationship Specialty Start Date End Date Shanda Rg NP [address] [place] [address] PCP - General Family Medicine 06/06/23 Jas Cordero FNP [address] [place] [address] Nurse Practitioner Family Medicine 07/24/23 Aixa Ng Mechanical Pencils AssemblerPhone Screener 09/11/23 documented as of this encounter
--- OUTSIDE RECORDS SUMMARY | 2025-04-25 16:07 | XMS_ITS | Encounter Summary ---
Author Organization [facility] Address [address] [facility] [address] [place] [phone] Phone Care Team Providers Care Front Office Assistant Name Role Phone Pcp, Unknown Primary Care Provider Unavailabl e Encounter Details Date Type Department Care Team (Late st Contact Info) Description 07/06/2017 Ancillary Orders [facility] [address] [place] [address] [place] [address] Darius Johnson DO [address] [place] [phone] Palpitations Social History Tobacco Use Types Packs/Day Years Used Date Smoking Tobacco: Never Assessed Sex and Gender Information Value Date Recorded Sex Assigned at Not on file Legal Sex Male 2:34 PM EST Gender Identity Not on file Sexual Orientation Not on file documented as of this encounter Plan of Treatment Not on file documented as of this encounter Results * Holter Monitor 24 Hours (07/06/2017 2:56 PM EST) Anatomical Region Laterality Modality Heart Other Narrative 07/06/2017 4:38 PM EST 24-hour monitor: No symptoms reported. Baseline rhythm is sinus with a minimum heart rate of 62 maximum 131 average 84 bpm. Rare PACs and PVCs. There is a 12 a run of atrial tachycardia at 135 bpm at 3:42 in the afternoon. Impression: Normal 24-hour monitor except for one single 12 beat run of atrial tachycardia at 135 bpm. No symptoms reported. Darius Johnson DO [facility] ORDERABLE S Final Result documented in this encounter Visit Diagnoses Diagnosis Palpitations Palpitations documented in this encounter Care Teams Front Office Assistant Relationship Specialty Start Date End Date Pcp, Unknown PCP - General 07/06/17 documented as of this encounter Additional Source Comments The information contained in this document represents components of the legal health record. It is not the complete legal health record.[facility]
--- OUTSIDE RECORDS SUMMARY | 2025-04-25 16:07 | XMS_ITS | Encounter Summary ---
Author Organization [employer] Address [address] [place] [address] [address] [place] [address] Care Team Providers Care Can Pusher Name Role Phone Shanda Rg NP Primary Care Provider [phone] Jas Cordero Unavailable Unavailable Encounter Details Date Type Department Care Team ([facility] Contact Info) Description 08/15/2024 Telephone [facility] [address] [place], [place] [phone] Shanda Rg NP [address] [place], [place] [phone] Social History Tobacco Use Types Packs/Day Years [...] Description 07/09/2025 9:00 AM EST Clinical Support [facility] [address] [place] [address] Cait Velazquez RN documented as of this encounter Visit Diagnoses Not on filedocumented in this encounter Additional Health Concerns Assessment Noted Time PHQ-9 Depression Total Score: 9 01/30/20 24 9:09 AM EDT documented as of this encounter Care Teams Can Pusher Relationship Specialty Start Date End Date Shanda Rg NP [address] [place] [address] PCP - General Family Medicine 06/06/23 Jas Cordero FNP [address] [place] [address] Nurse Practitioner Family Medicine 07/24/23 Aixa Ng Press Operator Heavy DutyRoad Sign Installer 09/11/23 documented as of this encounter
--- OUTSIDE RECORDS SUMMARY | 2025-04-25 16:07 | XMS_ITS | Encounter Summary ---
Author Organization [facility] Address [address] [place] [address] Phone Care Team Providers Care Thread Milling Machine Set Up Operator Name Role Phone Pcp, Unknown Primary Care Provider Unavailabl e Encounter Details Date Type Department Care Team (Late st Contact Info) Description 08/05/2020 Ancillary Orders [facility] [address] [place] [address] [place] [address] Darius Johnson DO [address] [place] [address] Palpitations Social History Tobacco Use Types Packs/Day Years Used Date Smoking Tobacco: Never Assessed Sex and Gender Information Value Date Recorded Sex Assigned at Not on file Legal Sex Male 2:34 PM EST Gender Identity Not on file Sexual Orientation Not on file documented as of this encounter Plan of Treatment Not on file documented as of this encounter Results * Holter Monitor 48 Hours (08/05/2020 9:36 AM EST) Anatomical Region Laterality Modality Heart Other Narrative 08/05/2020 4:06 PM EST 48-hour monitor: The baseline rhythm is sinus with a minimum heart rate of 59, maximum 145, average 84 bpm. There are no long pauses present. There are occasional PACs, atrial couplets, and a single 3 beat run of atrial tachycardia. There are rare PVCs. There is no diary submitted. The single patient event marker occurs during sinus rhythm with a PAC after the event marker. Impression: Normal 48-hour monitor. Single event marker during sinus rhythm and a PAC several beats after the event marker. Procedure Note Laurent Erwin MD - 08/05/2020 48-hour monitor: The baseline rhythm is sinus with a minimum heart rate of59, maximum 145, average 84 bpm. There are no long pauses present. Thereare occasional PACs, atrial couplets, and a single 3 beat run of atrialtachycardia. There are rare PVCs. There is no diary submitted. Thesingle patient event marker occurs during sinus rhythm with a PAC afterthe event marker. Impression: Normal 48-hour monitor. Single event marker during sinusrhythm and a PAC several beats after the event marker. us Darius Johnson DO [facility] ORDERABLE S Final Result documented in this encounter Visit Diagnoses Diagnosis Palpitations Palpitations documented in this encounter Care Teams Thread Milling Machine Set Up Operator Relationship Specialty Start Date End Date Pcp, Unknown PCP - General 07/06/17 documented as of this encounter Additional Source Comments The information contained in this document represents components of the legal health record. It is not the complete legal health record.[facility]
--- OUTSIDE RECORDS SUMMARY | 2025-04-25 16:07 | XMS_ITS | Encounter Summary ---
Author Organization [employer] Address [address] [place] [address] 7 [place] [address] Care Team Providers Care Gear Machinist Name Role Phone Shanda Rg NP Primary Care Provider [phone] Jas Cordero Unavailable Unavailable Reason for Visit * Reason Comments Med Refill Encounter Details Date Type Department Care Team (Late st Contact Info) Description 09/09/2023 Refill [facility] [address] [place] [address] NameJerardo MD [address] [place] [address] Radiculopathy, cervical region Social History Tobacco Use [...] Description 07/09/2025 9:00 AM EST Clinical Support [facility] [address] [place] [address] Cait Velazquez RN documented as of this encounter Visit Diagnoses Diagnosis Radiculopathy, cervical region Brachial neuritis or radiculitis nos documented in this encounter Additional Health Concerns Assessment Noted Time PHQ-9 Depression Total Score: 4 08/01/20 11:20 AM EST documented as of this encounter Care Teams Gear Machinist Relationship Specialty Start Date End Date Shanda Rg NP [address] [place] [address] PCP - General Family Medicine 06/06/23 Jas Cordero FNP [address] [place] [address] Nurse Practitioner Family Medicine 07/24/23 Aixa Ng Supervisor Television Chassis RepairSommelier 09/11/23 documented as of this encounter
--- OUTSIDE RECORDS SUMMARY | 2025-04-25 16:07 | XMS_ITS | Encounter Summary ---
Author Organization [employer] Address [address] [place] [address] 7 [place] [address] Care Team Providers Care Shore Worker Name Role Phone Shanda Rg NP Primary Care Provider [phone] Jas Cordero Unavailable Unavailable Reason for Visit * Reason Onset Date Comments Appointment Request 09/25/2023 Encounter Details Date Type Department Care Team ([facility] st Contact Info) Description 09/25/2023 Telephone [facility] [address] [place] [address] Shanda Rg NP [address] [place], [place] [phone] Appointment Request Social History Tobacco Use Types [...] encounter Miscellaneous Notes * Telephone Encounter - Jeanjuaquin Rosario - 09/25/2023 11:53 AM EST Tc from pt requesting TP, pt is on a recall 10/27/23. Pt denied any immediate concerns just wants to follow up regarding existing conditions. Please contact pt at [phone]. Liberian speaking documented in this encounter Plan of Treatment Upcoming Encounters Date Type Department Care Team (Late st Contact Info) Description 07/09/2025 9:00 AM EST Clinical Support [facility] [address] [place] [address] Cait Velazquez RN documented as of this encounter Visit Diagnoses Not on filedocumented in this encounter Additional Health Concerns Assessment Noted Time PHQ-9 Depression Total Score: 4 08/01/20 11:20 AM EST documented as of this encounter Care Teams Shore Worker Relationship Specialty Start Date End Date Shanda Rg NP [address] [place] [address] PCP - General Family Medicine 06/06/23 Jas Cordero FNP [address] [place] [address] Nurse Practitioner Family Medicine 07/24/23 Aixa Ng Crowning InspectorFire Behavior Analyst 09/11/23 documented as of this encounter
--- OUTSIDE RECORDS SUMMARY | 2025-04-25 16:07 | XMS_ITS | Encounter Summary ---
Author Organization [employer] Address [address] [place] [address] 7 [place] [address] Care Team Providers Care Document Clerk Name Role Phone Shanda Rg NP Primary Care Provider [phone] Jas Cordero Unavailable Unavailable Reason for Visit * Reason Comments Med Refill Encounter Details Date Type Department Care Team ([facility] st Contact Info) Description 09/22/2023 Refill [facility] [address] [place] [address] Carrie Shrestha MD [address] [place] [address] Seasonal allergic rhinitis, unspecified trigger Social History [...] Description 07/09/2025 9:00 AM EST Clinical Support [facility] [address] [place] [address] Cait Velazquez RN documented as of this encounter Visit Diagnoses Diagnosis Seasonal allergic rhinitis, unspecified trigger documented in this encounter Additional Health Concerns Assessment Noted Time PHQ-9 Depression Total Score: 4 08/01/20 23 11:20 AM EST documented as of this encounter Care Teams Document Clerk Relationship Specialty Start Date End Date Shanda Rg NP [address] [place] [address] PCP - General Family Medicine 06/06/23 Jas Cordero FNP [address] [place] [address] Nurse Practitioner Family Medicine 07/24/23 Aixa Ng Nursing AideGatehouse Attendant 09/11/23 documented as of this encounter
--- OUTSIDE RECORDS SUMMARY | 2025-04-25 16:07 | XMS_ITS | Encounter Summary ---
Author Organization [employer] Address [address] [place] [address] 7 [place] [address] Care Team Providers Care Candy Depositing Machine Operator Name Role Phone Shanda Rg NP Primary Care Provider [phone] Jas Cordero Unavailable Unavailable Reason for Visit * Reason Comments Med Refill Encounter Details Date Type Department Care Team (Late st Contact Info) Description 08/01/2023 Refill [facility] [address] [place] [address] Lianet Mae FNP [address] [place] [address] Pain; Cervical radiculopathy; Lumbar radiculopathy Social History [...] AM EDT documented as of this encounter Functional Status * Over the past 2 weeks, how often have you been bothered by any of the following problems? Question Answer Date of Assessment Author Patient Health Questionnaire -2 Score 2 08/01/2023 11:20 AM Mali Forbes [place] * If you checked off any problems on this questionnaire so far, Question Answer Date of Assessment Author How difficult have these problems made it for you to do your work, take care of things at home, or get along with other people? Somewhat difficult 08/01/2023 11:20 AM Mali Forbes [place] * Over the past 2 weeks, how often have you been bothered by any of the following problems? Question Answer Date of Assessment Author Little interest or pleasure in doing things Several days 08/01/2023 11:20 AM Mali Forbes [place] Feeling down, depressed, or hopeless Several days 08/01/2023 11:20 AM Mali Forbes [place] Trouble falling or staying asleep, or sleeping too much Not at all 08/01/2023 11:20 AM Mable Forbes [place] Feeling tired or having little energy Several days 08/01/2023 11:20 AM Mali Forbes [place] Poor appetite or overeating Not at all 08/01/2023 11 :20 AM Mable Forbes [place] Feeling bad about yourself - or that you are a failure or have let yourself or your family down Several days 08/01/2023 11:20 AM Mali Forbes [place] Trouble concentrating on things, such as reading the newspaper or watching television Not at all 08/01/2023 11:20 AM Mali Forbes [place] Moving or speaking so slowly that other people could have noticed? Or the opposite - being so fidgety or restless that you have been moving around a lot more than usual. Not at all 08/01/2023 11:20 AM Mali Forbes [place] Thoughts that you would be better off or hurting yourself in some way Not at all 08/01/2023 11:20 AM Eder Forbes MA Patient Health Questionnaire-9 Score 4 08/01/2023 11:20 AM Neena Forbes [place] documented as of this encounter Miscellaneous Notes * Telephone Encounter - Shanda Rg NP - 08/04/2023 10:41 AM EST Approving, but needs appt for additional refills. documented in this encounter Plan of Treatment Upcoming Encounters Date Type Department Care Team (Late st Contact Info) Description 07/09/2025 9:00 AM EST Clinical Support [facility] [address] [place] [address] Cait Velazquez RN documented as of this encounter Visit Diagnoses Diagnosis Pain Generalized pain Cervical radiculopathy Brachial neuritis or radiculitis nos Lumbar radiculopathy Thoracic or lumbosacral neuritis or radiculitis, unspecified documented in this encounter Additional Health Concerns Assessment Noted Time PHQ-9 Depression Total Score: 4 08/01/20 23 11:20 AM EST documented as of this encounter Care Teams Candy Depositing Machine Operator Relationship Specialty Start Date End Date Shanda Rg NP [address] [place] [address] PCP - General Family Medicine 06/06/23 Jas Cordero FNP [address] [place] [address] Nurse Practitioner Family Medicine 07/24/23 Aixa Ng Conductor FreightKid Club Attendant 09/11/23 documented as of this encounter
--- OUTSIDE RECORDS SUMMARY | 2025-04-25 16:07 | XMS_ITS | Encounter Summary ---
Author Organization [facility] Address [address] [place] [address] 7 [place] [address] Care Team Providers Care Sales Support Representative Name Role Phone Jada Erickson WHITE SPOOLER Primary Care Provider Shanda Roman TEST MANAGER Primary Care Provider Jas Cordero WHITE SPOOLER Unavailable Unavailable Reason for Visit * Reason Comments Med Refill Encounter Details Date Type Department Care Team ([facility] Contact Info) Description 01/24/[address] [address] Jada Erickson FNP Pain; Cervical radiculopathy; Lumbar radiculopathy Social History [...] Upcoming Encounters Date Type Department Care Team ([facility] Contact Info) Description 07/09/2025 9:00 AM EST Clinical Support [facility] [address] [place] [address] Cait Velazquez, LUCY documented as of this encounter Visit Diagnoses Diagnosis Pain Generalized pain Cervical radiculopathy Brachial neuritis or radiculitis nos Lumbar radiculopathy Thoracic or lumbosacral neuritis or radiculitis, unspecified documented in this encounter Additional Health Concerns Assessment Noted Time PHQ-9 Depression Total Score: 9 01/18/20 12:56 PM EDT documented as of this encounter Care Teams Sales Support Representative Relationship Specialty Start Date End Date Jada Erickson FNP PCP - General Family Medicine 10/27/22 06/05/23 Shanda Rg NP [address] [place] [address] PCP - General Family Medicine 06/06/23 Jas Codrero FNP [address] [place] [address] Nurse Practitioner Family Medicine 07/24/23 Aixa Ng Rn BariatricHouse Supervisor 09/11/23 documented as of this encounter
--- OUTSIDE RECORDS SUMMARY | 2025-04-25 16:07 | XMS_ITS | Encounter Summary ---
Author Organization [employer] Address [address] [place] [address] 7 [place] [address] Care Team Providers Care Manufacturing Automation Engineer Name Role Phone Jada Erickson SYSTEMS SPEC Primary Care Provider Shanda Roman PATIENT COORDINATOR Primary Care Provider [phone] Jas Cordero SYSTEMS SPEC Unavailable Unavailable Reason for Visit * Reason Comments Med Refill Encounter Details Date Type Department Care Team (Late st Contact Info) Description 05/30/2023 Refill [facility] [address] [place] [address] Jada Erickson FNP Pain; Cervical radiculopathy; Lumbar [...] Assessment Author Patient Health Questionnaire -2 Score 4 06/01/2023 9:23 AM Chiquita Krishnan [place] * If you checked off any problems on this questionnaire so far, Question Answer Date of Assessment Author How difficult have these problems made it for you to do your work, take care of things at home, or get along with other people? Somewhat difficult 06/01/2023 9:23 AM Chiquita Krishnan [place] * Over the past 2 weeks, how often have you been bothered by any of the following problems? Question Answer Date of Assessment Author Little interest or pleasure in doing things Nearly every day 06/01/2023 9:23 AM Mable Krishnan [place] Feeling down, depressed, or hopeless Several days 06/01/2023 9:23 AM Chiquita Krishnan [place] Trouble falling or staying asleep, or sleeping too much Nearly every day 06/01/2023 9:23 AM Chiquita Krishnan [place] Feeling tired or having little energy Several days 06/01/2023 9:23 AM Chiquita Krishnan [place] Poor appetite or overeating Not at all 06/01/2023 9:23 AM Chiquita Krishnan [place] Feeling bad about yourself - or that you are a failure or have let yourself or your family down Several days 06/01/2023 9:23 AM Chiquita Krishnan [place] Trouble concentrating on things, such as reading the newspaper or watching television Not at all 06/01/2023 9:23 AM Chiquita Krishnan [place] Moving or speaking so slowly that other people could have noticed? Or the opposite - being so fidgety or restless that you have been moving around a lot more than usual. Several days 06/01/2023 9:23 AM Chiquita Krishnan MA Thoughts that you would be better off or hurting yourself in some way Not at all 06/01/2023 9:23 AM Mali Krishnan [place] Patient Health Questionnaire-9 Score 10 06/01/2023 9:23 AM EDT Eder Gallardo MA documented as of this encounter Plan of Treatment Upcoming Encounters Date Type Department Care Team (Late st Contact Info) Description 07/09/2025 9:00 AM EST Clinical Support [facility] [address] [facility] [place] [address] Cait Velazquez RN documented as of this encounter Visit Diagnoses Diagnosis Pain Generalized pain Cervical radiculopathy Brachial neuritis or radiculitis nos Lumbar radiculopathy Thoracic or lumbosacral neuritis or radiculitis, unspecified documented in this encounter Additional Health Concerns Assessment Noted Time PHQ-9 Depression Total Score: 0 04/13/20 9:39 AM EDT documented as of this encounter Care Teams Manufacturing Automation Engineer Relationship Specialty Start Date End Date Jada Erickson FNP PCP - General Family Medicine 10/27/22 06/05/23 Shanda Rg NP [address] [place] [address] PCP - General Family Medicine 06/06/23 Jas Cordero FNP [address] [place] [address] Nurse Practitioner Family Medicine 07/24/23 Aixa Ng Dowel Sticker OperatorPlacer Miner 09/11/23 documented as of this encounter
--- OUTSIDE RECORDS SUMMARY | 2025-04-25 16:07 | XMS_ITS | Clinical Summary ---
Author Organization [employer] Address [address] [place] [address] 7 [place] [address] Care Team Providers Care Glass Technician/Installer Name Role Phone Shanda Rg NP Primary Care Provider [phone] Jas Cordero Unavailable Unavailable Allergies No known [...] hours. 02/21/20 20 Active Fluocinolone Acetonide Scalp (Peru-Smoothe /FS Scalp) 0.01 % oilIndications :Psoriasis Use [...] EVERY DAY 90 tablet 06/17/20 24 Active ustekinumab (Stelara) injectionIndic ations:Psorias is Inject 0.5 mL (45 mg) under the skin every 3 (three) months. 0.5 mL 10 06/28/20 24 Active econazole nitrate 1 % creamIndicatio ns:Tinea pedis of both feet Apply topically between toes of both feet for 14 days 30 g 09/04/19 25 Active zolpidem (Ambien) 10 MG tabletIndicati ons:Major depressive disorder with psychotic features ([facility]/HCC) TAKE 1 TABLET BY MOUTH EVERY DAY [...] 7.5 mg by mouth at bedtime. Active TRUEplus Lancets 33G miscIndication s:Type 2 diabetes mellitus without complication, unspecified whether fdc insulin use (CMS/[facility]) TEST BLOOD SUGAR ONCE DAILY 100 each 11 04/20 25 Active glucose blood (FREESTYLE LITE) test stripIndicatio ns:Type 2 diabetes mellitus without complication, unspecified whether fdc insulin use ([facility]) TEST BLOOD SUGAR ONCE DAILY 50 each 10/30/19 25 Active Blood Glucose Monitoring Suppl (FreeStyle Lite) w/Device kitIndications :Type 2 diabetes mellitus without complication, unspecified whether copyright clerk insulin use ([facility]) 1 kit 3 times daily. 1 kit 10/30/19 25 Active Alcohol Swabs 70 % padsIndication s:Type 2 diabetes mellitus without complication, unspecified whether fdc insulin use ([facility]) 1 Units 3 times daily. 90 each 3 10/30/19 25 Active metFORMIN (Glucophage) 500 MG tabletIndicati ons:Type 2 diabetes mellitus without complication, without long-term current use of insulin ([facility]) TAKE 1 TABLET BY MOUTH EVERY MORNING WITH A MEAL 90 tablet 1 01/15/20 25 Active D3 Super Strength 50 MCG (2000 UT) capsuleIndicat ions:Vitamin D deficiency TAKE 1 CAPSULE BY MOUTH EVERY MORNING 90 capsule 1 01/15/20 25 Active losartan (Cozaar) 100 MG tablet TAKE 1 TABLET BY MOUTH EVERY MORNING 90 tablet 1 01/16/20 25 Active amLODIPine (Norvasc) 5 MG tablet TAKE 1 TABLET BY MOUTH EVERY MORNING 90 tablet 03/07/20 25 Active folic acid (Folvite) 1 MG tabletIndicati ons:Psoriasis TAKE 1 TABLET BY MOUTH EVERY MORNING 90 tablet 1 03/17/20 25 Active atorvastatin (Lipitor) 80 MG tablet TAKE 1 TABLET BY MOUTH AT BEDTIME 90 tablet 1 03/17/20 25 Active traMADol (Ultram) 50 MG tabletIndicati ons:Chronic pain of both knees Take 2 tablets (100 mg) by mouth every 12 (twelve) hours if needed for severe pain for up to 28 days. TAKE 2 TABLETS BY MOUTH EVERY TWELVE HOURS NEEDED FOR SEVERE PAIN Do not start before April 08, 2025. 112 tablet 04/08/20 25 2024 Active gabapentin (Neurontin) 300 MG capsuleIndicat ions:Radiculop athy, cervical region TAKE 1 CAPSULE BY MOUTH TWICE DAILY IN THE MORNING AND AT NOON and TAKE 2 CAPSULES BY MOUTH EVERY DAY AT BEDTIME 120 capsule 04/15/20 25 Active traMADol (Ultram) 50 MG tabletIndicati ons:Chronic pain of both knees Take 2 tablets (100 mg) by mouth every 12 (twelve) hours if needed for severe pain for up to 28 days. TAKE 2 TABLETS BY MOUTH EVERY TWELVE HOURS NEEDED FOR SEVERE PAIN 112 tablet 03/03/20 25 2024 Discontinued(R eorder (will not trigger notification to Pharmacy)) gabapentin (Neurontin) 300 MG capsuleIndicat ions:Radiculop athy, cervical region TAKE 1 CAPSULE BY MOUTH TWICE DAILY IN THE MORNING AND AT NOON and TAKE 2 CAPSULES EVERY DAY AT BEDTIME 120 capsule 03/07/20 25 2024 Discontinued Active Problems Problem Noted Date Diagnosed Date Long-term current use of opiate analgesic 2024 Chronic pain syndrome 10/19/2024 Assessment & Plan (10/19/2024 12:10 PM EST): -followed by [facility] pain management group -continue tramadol as ordered -encouraged to continue [employer]OUN[employer] appointments and encouraged to give some thought [...] with tizanidine and tramadol, and gabapentin RMV placbora completed and using MRI lumbar spine May 2022 that showed slight lumbar dextrocurvature with trace [id number] lateral lithesis at L4-L5. Trace anterolithesis at [...] changes. Pain affecting gait and ambulation Discussed RMAvril handicap katherine with pt, he will bring [...] retiring patient will be transferred to new [facility] Psychiatric Prescriber. Pt is aware that those appointments will be via televisit, and that the provider is not an [facility] employee. He gives verbal consent to [...] Atorvastatin 40 mg daily Assessment & Plan (03/12/2025 4:35 PM EDT): -controlled -POCT glucose 90 mg/DL -continue metformin 500 mg every day Assessment & Plan (10/19/2024 12:20 PM EST): [...] 8:15 PM EDT): Continue metformin F/u PRN Dizziness and giddiness 10/28/2016 Osteochondroma of bone 08/30/2016 Primary hypertension 01/01/2016 Overview (05/13/2023): Losartan 100 mg daily Amlodipine 5 mg daily Assessment & Plan (03/12/2025 4:30 PM EDT): -stable -continue amlodipine 5mg, losartan 100 mg, metoprolol 100 mg daily -diet and lifestyle changes discussed Assessment & Plan (10/19/2024 12:18 PM EST): [...] PCP 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 Resolved Problems Problem Noted Date Diagnosed Date Resolved Date Class 1 obesity 04/06/2023 02/06/2024 Pain of tooth socket 12/16/2016 023 Backache 08/30/2016 09/21/2022 Encounters Date Type Department Care Team Description 04/25/2025 3:15 PM EDT Office Visit [address] [address] Shanda Rg NP Generalized joint pain (Primary Dx) 04/25/2025 Travel 04/22/[address] [address] Shanda Rg NP Nurse Triage 04/14/2025 Refill [facility] [address] [place] [address] Shanda Rg NP Radiculopathy, cervical region 04/04/2025 Refill [facility] [address] [place] [address] Cait Velazquez RN Chronic pain of both knees 04/01/[address] [address] Shanda Rg NP Chronic pain of both knees 03/16/[address] [address] Shanda Rg NP Psoriasis 03/11/2025 9:30 AM EDT Clinical Support [address] [address] Cait Velazquez, RN Long-term current use of opiate analgesic (Primary Dx) 03/11/[address] [address] Cait Velazquez, LUCY BPI Scoring 03/11/2025 Travel 03/07/2025 2:30 PM EDT Office Visit [address] [address] Shanda Rg NP Type 2 diabetes mellitus without complication, unspecified whether copyright clerk insulin use ([facility]) 03/07/2025 Travel 03/06/2025 Refill [facility] [address] [place] [address] Shanda Rg NP Radiculopathy, cervical region 03/03/2025 Refill [facility] [address] [place] [address] Shanda Rg NP Chronic pain of both knees 01/30/2025 Telephone [facility] [address] [place] [address] Shanda Rg NP Appointment Request 01/27/2025 Refill [facility] [address] [place] [address] Modesta Marmolejo RN Chronic pain of both knees 01/27/2025 Telephone [facility] [address] [place] [address] Shanda Rg NP Med Refill from Last 3 Months Immunizations Immunization Administration Dates Next Due Hep B, adult [...] Mass Index 34.93 04/25/2025 3:39 PM EDT Plan of Treatment Upcoming Encounters Date Type Department Care Team (Late st Contact Info) Description 07/09/2025 9:00 AM EST Clinical Support [facility] [address] [place], [place] [phone] Cait Velazquez, RN Health Maintenance Due Date Last Done Comments CT Colonography 1965 FIT DNA/Cologuard 1965 FIT 1965 FOBT 1965 Sigmoidoscopy 1965 Hepatitis B Vaccines (2 of 3 - 19+ 3-dose series) 05/11/2023 04/13/2023 COVID-19 Vaccine ( season) 2024 09/02/2022, 2021, 12/07/2020, Additional history exists Influenza Vaccine (#1) 2025 , 05/16/2018, 05/19/2016 Diabetes: Hemoglobin A1C 05/22/2025 025, 09/04/2024, 11/03/2023, Additional history exists Alcohol/Substance Use Screening 09/04/2025 09/04/2024 Diabetes: Foot Exam 09/04/2025 09/04/2024, 09/04/2024, 09/04/2024, Additional history exists Diabetes: Urine Protein Screening 09/05/2025 09/05/2024, 11/09/2023, 06/04/2020 Lipid Panel 09/05/2025 09/05/2024, 10/26, 11/05/2021, Additional history exists Depression Monitoring 09/07/2025 03/07/2025, 025 Disability Screening 01/06/2026 01/06/2025 SDOH Screening 03/07/2026 03/07/2025 Tobacco Screening 03/12/2026 03/12/2025 Colonoscopy 07/12/2026 07/12/2021 Colorectal Cancer Screening 07/12/2026 [...] patient's age to complete this topic Meningococcal B Vaccine Aged Out No l onger eligible based on patient's age to complete [...] Comments POCT ADRIAN-14 URINE DRUG SCREEN Routine 03/11/2025 9:35 AM EDT Long-term current use of opiate analgesic POCT GLUCOSE Routine 03/07/2025 2:49 PM EDT Type 2 diabetes mellitus without complication, unspecified whether fdc insulin use ([facility]) HEMOGLOBIN A1C Routine 11/19/2024 8:55 AM EDT ALBUMIN, RANDOM URINE W/CREATININE Routine 09/05/2024 8:35 AM EST Type 2 diabetes mellitus without complication, without long-term current use of insulin ([facility]) LIPID PANEL, STANDARD Routine 09/05/2024 8:35 AM EST Type 2 diabetes mellitus without complication, without long-term current use of insulin ([facility]) HEPATITIS C AB W/REFL TO HCV RNA, QN, PCR Routine 11/09/2023 3:25 PM EDT Routine screening for STI (sexually transmitted infection) HIV 1/2 ANTIGEN/ANTIBODY, FOURTH GENERATION W/RFL Routine 11/09/2023 3:25 PM EDT Routine screening for STI (sexually transmitted infection) COLONOSCOPY Routine 07/12/2021 from Last 3 Months or Most Recently Relevant to Health Maintenance Results * POCT ADRIAN-14 Urine Drug Screen (03/11/2025 9:35 AM EDT) Pathologist [facility] THC Negative Negative Cocaine Screen, Urine Negative Negative Opiate Screen, Urine Negative Negative Methamphetamine Screen Urine Negative Negative Amphetamine Screen, Urine Negative Negative Benzodiazepines Screen, Urine Negative Negative Barbiturate Screen, Urine Negative Negative Methadone Screen, Urine Negative Negative Buprenophine Screen, Urine Negative Negative TCA, Urine Negative Negative MDMA Urine Negative Negative ng/mL Oxycodone Screen, Urine Negative Negative Phencyclidine (PCP), Urine Negative Negative Propoxyphene, Urine Negative Negative Fentanyl, Urine Negative Negative Urine Urine specimen obtained by clean catch procedure / Unknown 03/11/2025 9:35 AM EDT Narrative Cait Velazquez RN - 03/11/2025 9:35 AM EDT UTOX cup Lot#[id number] Exp. 06/03/26 Internal Pass Control us Shanda Rg NP POINT OF CARE TEST ENTER/EDIT O RDERABLES Final Result * POCT Glucose (03/07/2025 2:49 PM EDT) Pathologist [facility] Glucose Blood, POC 106 60 - 200 mg/dL QC Media Lot # [id number] Lot# Expiration Date Blood Capillary blood specimen / Unknown 03/07/2025 2:49 PM EDT us Shanda Cole DEEPA POINT OF CARE TEST ENTER/EDIT O RDERABLES Final Result * (ABNORMAL) Hemoglobin A1c (11/19/2024 8:55 AM EDT) Hemoglobin A1c 6.8(H) <6.0 % [facility] Comment:Hemoglobin A1C Refer ence Range Adults: 4.8 - 6.0 % Non diabetic: < 6.0 % Goal: < 7.0 %Additional Action Suggested: > 8.0 %Note: Hemoglobin A1c results are invalid for patients with abnormal amounts of HbF. Blood transfusions may impact the HbA1c concentration in the patient sample. Estimated Average Glucose 148 mg/dL [facility] Comment:eAG = Estimated ave rage glucose which is %A1C expressed asaverage glucose, using the formula of the J3T-[id number] Glucose study (ADAG), Diabetes Care, Vol.31,#8,2007 11/19/2024 8:55 AM EDT 11/19/2024 8:55 AM EDT us Generic External Data Provider LAB BLOOD ORDERAB LES Final Result Performing Organization Address [facility] Co de Phone Number [facility] [address] [place] [phone] * Albumin, Random Urine W/Creatinine (09/05/2024 8:35 AM EST) Creatinine, Urine 117.04 mg/dL [facility] Microalbumin Urine 8.0 mg/L [facility] Microalbum Creatinine Ratio Ur 6.8 <30 ug/mg cr [facility] Comment:Albumin/Creatinine R atio Reference Ranges: Normal: < 30 ug/mg creatinine Microalbuminuria: 30 - 300 ug/mg creatinineClinical Albuminuria: > 300 ug/mg creatinine Urine (Urine, Random) 09/05/2024 8:35 AM EST 09/05/2024 11:21 AM EST us Shanda Rg TEA TASTER LAB URINE ORDERABLES Final Resu lt Performing Organization Address [facility] Co de Phone Number [facility] [address] [place] [phone] * (ABNORMAL) Lipid Panel, Standard (09/05/2024 8:35 AM EST) Triglycerides 344(H) <150 mg/dL [facility] Comment:Mild Lipemia.Desirab le Triglyceride: less than 150 mg/dLBorderline High Triglyceride 150-199 mg/dLHigh Triglyceride: 200-499 mg/dLVery High Triglyceride: greater than or equal to 5OO mg/dL Cholesterol 183 <200 mg/dL [facility] Comment:Desirable Cholestero l: less than 200 mg/dLBorderline High Cholesterol: 200-239 mg/dLHigh Cholesterol: greater than 239 mg/dL LDL Cholesterol Calculated 82 <100 mg/dL [facility] Comment:Desirable LDL: less than 100 mg/dLNear Optimal/Above Optimal LDL: 110- 129 mg/dLBorderline High LDL: 130-159 mg/dLHigh LDL: 160-189 mg/dLVery High LDL: greater than or equal to 190 mg/dL HDL Cholesterol 33(L) >40 mg/dL [facility] Comment:Desirable HDL: great er than 40 mg/dL Note: This HDL assay may give artificially low results in patients with liver disease. Blood Venous blood specimen / Unknown 09/05/2024 8:35 AM EST 09/05/2024 11:23 AM EST [facility] LAB BLOOD ORDERABLES Final Resu lt Performing Organization Address [facility]/ZIP Co de Phone Number [facility] [address] [place] [phone] * Hepatitis C Antibody with Reflex to HCV, RNA, Quantitative, Real-Time PCR (11/09/2023 3:25 PM EDT) Hepatitis C Antibody Nonreactive Nonreactive [facility] Comment:Antibodies to HCV no t detected; does not exclude early acuteHCV infection. Blood Venous blood specimen / Unknown 11/09/2023 3:25 PM EDT 11/09/2023 3:25 PM EDT [facility] LAB BLOOD ORDERABLES Final Resu lt Performing Organization Address [facility]/ZIP Co de Phone Number [facility] [address] [place] [phone] * HIV-1/2 Antigen and Antibodies, Fourth Generation, with Reflexes (11/09/2023 3:25 PM EDT) HIV AB/AG Nonreactive Nonreactive [facility] Comment:HIV-1 p24 Ag and/or HIV-1/HIV-2 Ab not detected.A test result that is nonreactive does not exclude thepossibility of exposure to or infection with HIV-1 and/orHIV-2. Nonreactive results in this assay for individualswith prior exposure to HIV-1 and/or HIV-2 may be due toantigen and antibody levels that are below the limit ofdetection of this assay.The [employer] HIV Ag/Ab Combo assay result andsupplemental assay results should be interpreted inconjunction with the patient's clinical presentation,history and other laboratory results. If the results areinconsistent with clinical evidence, additional testing issuggested to confirm the result. Blood Venous blood specimen / Unknown 11/09/2023 3:25 PM EDT 11/09/2023 3:25 PM EDT Shanda Rg NP LAB BLOOD ORDERABLES Final Resu lt [facility] [address] [place] [phone] * Hm Colonoscopy (07/12/2021) Colonoscopy normal Historical Provider HEALTH MAINTENANCE Edited Result - Final from Last 3 Months or Most Recently Relevant to Health Maintenance Insurance [facility] [id number] [place], [place] Care Teams Glass Technician/Installer Relationship Specialty Start Date End Date Shanda Rg NP [address] [place] [address] PCP - General Family Medicine 06/06/23 Jas Cordero FNP [address] [place] [address] Nurse Practitioner Family Medicine 07/24/23 Aixa Ng Olive GraderBoiler Fitter 09/11/23
--- OUTSIDE RECORDS SUMMARY | 2025-04-25 16:07 | XMS_ITS | Encounter Summary ---
Author Organization [employer] Address [address] [place] [address] [address] [place] [address] Care Team Providers Care Licensed Retail Supervisor Name Role Phone Shanda Rg NP Primary Care Provider [phone] Jas Cordero Unavailable Unavailable Encounter Details Date Type Department Care Team ([facility] Contact Info) Description 07/12/2024 Telephone [facility] [address] [place], [place] [phone] Shanda Rg NP [address] [place], [place] [phone] Social History Tobacco Use Types Packs/Day Years [...] Description 07/09/2025 9:00 AM EST Clinical Support [facility] [address] [place] [address] Cait Velazquez RN documented as of this encounter Visit Diagnoses Not on filedocumented in this encounter Additional Health Concerns Assessment Noted Time PHQ-9 Depression Total Score: 9 01/30/20 24 9:09 AM EDT documented as of this encounter Care Teams Licensed Retail Supervisor Relationship Specialty Start Date End Date Shanda Rg NP [address] [place] [phone] PCP - General Family Medicine 06/06/23 Jas Cordero FNP [address] [place] [phone] Nurse Practitioner Family Medicine 07/24/23 Aixa Ng Forming FixerPower Generation Equipment Repairer 09/11/23 documented as of this encounter
--- OUTSIDE RECORDS SUMMARY | 2025-04-25 16:07 | XMS_ITS | Encounter Summary ---
Author Organization [employer] Address [address] [place] [address] [address] [place] [address] Care Team Providers Care Well Head Pumper Name Role Phone Shanda Rg NP Primary Care Provider [phone] Jas Cordero Unavailable Unavailable Reason for Visit * Reason Onset Date Comments Med Refill 03/25/2024 Encounter Details Date Type Department Care Team (Late st Contact Info) Description 03/25/2024 Telephone [facility] [address] [place] [address] Shanda Rg NP [address] [place], [place] [phone] Med Refill Social History Tobacco Use Types [...] qty - 112 for 28 dayssupply. From [facility] pharmacy. * Telephone Encounter - Jean Rosario - 03/25/2024 1:38 PM EDT TC from pt requesting medication refill. Medications needing refill: traMADol (Ultram) 50 MG tablet To be sent to: [facility] Pharmacy documented in this encounter Plan of Treatment Upcoming Encounters Date Type Department Care Team (Late st Contact Info) Description 07/09/2025 9:00 AM EST Clinical Support [facility] [address] [place] [id number] Cait Velazquez RN documented as of this encounter Visit Diagnoses Not on filedocumented in this encounter Additional Health Concerns Assessment Noted Time PHQ-9 Depression Total Score: 9 01/30/20 24 9:09 AM EDT documented as of this encounter Care Teams Well Head Pumper Relationship Specialty Start Date End Date Appram, Shanda, MA[employer] SECURITY [address] [place] [address] PCP - General Family Medicine 06/06/23 Jas Cordero FNP [address] [place] [address] Nurse Practitioner Family Medicine 07/24/23 Aixa Ng Oracle Ebs DeveloperManager Revenue 09/11/23 documented as of this encounter
--- OUTSIDE RECORDS SUMMARY | 2025-04-25 16:07 | XMS_ITS | Encounter Summary ---
Author Organization [employer] Address [address] [facility] [address] [place] [address] Care Team Providers Care Marketing Development Specialist Name Role Phone Shanda Rg NP Primary Care Provider [phone] Jas Cordero Unavailable Unavailable Encounter Details Date Type Department Care Team (Latest Contact Info) Description 04/25/2025 Travel Social History Tobacco Use Types Packs/Day Years [...] Description 07/09/2025 9:00 AM EST Clinical Support [facility] [address] [place] [address] Cait Velazquez, RN documented as of this encounter Visit Diagnoses Not on filedocumented in this encounter Additional Health Concerns Assessment Noted Time PHQ-9 Depression Total Score: 17 025 3:44 PM EDT documented as of this encounter Care Teams Marketing Development Specialist Relationship Specialty Start Date End Date Shanda Rg NP [address] [place] [address] PCP - General Family Medicine 06/06/23 Jas Cordero FNP [address] [place] [address] Nurse Practitioner Family Medicine 07/24/23 Aixa Ng Hemming And Tacking Machine OperatorSenior Adults Director 09/11/23 documented as of this encounter
--- OUTSIDE RECORDS SUMMARY | 2025-04-25 16:07 | XMS_ITS | Encounter Summary ---
Author Organization [email or web address] Address [address] [place] [address] 7 [place] [address] Care Team Providers Care Radio Sales Account Executive Name Role Phone Shanda Rg NP Primary Care Provider [phone] Jas Cordero Unavailable Unavailable Reason for Visit * Reason Onset Date Comments Nurse Triage 04/22/2025 Encounter Details Date Type Department Care Team ([facility] st Contact Info) Description 04/22/2025 Telephone [facility] MEDICINE [address] [place] [address] Shanda Rg NP [address] [place] [address] Nurse Triage Social History Tobacco Use Types Packs/Day Years [...] encounter Miscellaneous Notes * Telephone Encounter - Claire Ellison RN - 04/22/2025 12:38 PM EDT No vice president client services needed as this marketing copywriter speaks Albanian. Call returned to Davidson Gillespie to triage below at [phone]. Reports having chronic bilateral hand pain. Denies any redness or rash. Mild swelling. No injury. Has hx of cervical radiculopathy. Using Tramadol. Pt having weakness and tingling on both hands. Pt advised of disposition, agrees to sick onsite with PCP for exam.. Protocol Used: Wrist Pain (Adult) Protocol-Based Disposition: See in Office or Video Visit within 3 Days Future Appointments Date Time Provider Department Center 04/25/2025 3:15 PM Shanda Rg NP MEDICINE [facility] 07/09/2025 9:00 AM Cait Velazquez RN [facility] Insurance verified as active per Real Time Eligibility in [facility]. Positive Triage Questions: * Moderate pain (e.g., interferes with normal activities) and present > 3 days * Pain is worsened or caused by bending the neck * All higher-acuity triage questions were negative Care Advice Discussed: * Reassurance and Education - Wrist Pain * Pain Medicines * Reasons To Call Back - Mild pain lasts over 7 days - Signs of infection occur (such as spreading redness, warmth, fever) - You become worse * Telephone Encounter - Jean Rosario - 04/22/2025 12:06 PM EDT Symptom: Hand or Wrist Pain - Not From Injury Outcome: Schedule an urgent appointment (within 1 hour) or talk to a nurse or provider soon Reason: Can't use the hand normally Please contact pt at [phone]. (Albanian Speaker) documented in this encounter Plan of Treatment Upcoming Encounters Date Type Department Care Team (Late st Contact Info) Description 07/09/2025 9:00 AM EST Clinical Support [facility] MEDICINE [address] [place] [address] Cait Velazquez, LUCY documented as of this encounter Visit Diagnoses Not on filedocumented in this encounter Additional Health Concerns Assessment Noted Time PHQ-9 Depression Total Score: 17 025 3:44 PM EDT documented as of this encounter Care Teams Radio Sales Account Executive Relationship Specialty Start Date End Date Shanda Rg NP [address] [place] [address] PCP - General Family Medicine 06/06/23 Jas Cordero FNP [address] [place] [address] Nurse Practitioner Family Medicine 07/24/23 Aixa Ng Kennel Manager Dog TrackDivisional Human Resources Director 09/11/23 documented as of this encounter
--- OUTSIDE RECORDS SUMMARY | 2025-04-25 16:07 | XMS_ITS | Clinical Summary ---
Author Organization [facility] Address [address] [place] [address] Care Team Providers Care Creel Hand Name Role Phone Unavailable Primary Care Provider [...] capsuleIndicati ons:Major depressive disorder with psychotic features (CMS & HHS-HCC) Take 1 Capsule by mouth once daily with breakfast 90 Capsule 4 Active venlafaxine XR (EFFEXOR XR) 150 mg 24 hr capsuleIndicati ons:Major depressive disorder with psychotic features (CMS & HHS-HCC) Take 1 Capsule by mouth once daily [...] tabletIndicatio ns:Major depressive disorder with psychotic features (CMS & HHS-HCC) Take 1 Tablet by mouth every morning [...] that showed slight lumbar dextrocurvature with trace axgm-se-dxyuf lateral lithesis at L4-L5. Trace anterolithesis at [...] PRN with new PCP Major depressive disorder wi th psychotic features ([facility]-H[facility]) 08/16/2022 Overview (05/09/2024): Last Assessment & Plan: [...] retiring patient will be transferred to new [facility] Psychiatric Prescriber. Pt is aware that those appointments will be via televisit, and that the provider is not an [facility] employee. He gives verbal consent to [...] right knee 2017 Type 2 diabetes mellitus wit hout complication ([facility]-HCC) 12/16/2016 Overview (05/09/2024): Education provided re: therapeutic [...] 62 08/14/2017 7:55 AM PST Temperature 36.3 C (97.3 F) 08/14/2017 7:55 AM PST Respiratory Rate - - Oxygen Saturation - [...] - 19 + 3-dose series) 05/11/2023 04/13/2023 [id number] ( season) 2024 09/02/2022, 2021, 12/07/2020, Additional history exists Hemoglobin A1c 05/05/2024 11/03/2023, 03/28, 06/08/2022, Additional history exists Alcohol and Drug Screen 08/28/2024 Lipid Screening 11/08/2024 11/09/2023 Imm-Influenza (#1) 2025 07/10/2020, 0 05/16/2018, 05/19/2016 Imm-DTaP/Tdap/Td (2 - Td or Tdap) 07/03/2029 019 Imm-Zoster, Recombinant Completed 09/23/2020, 07/10 Imm-Pneumococcal 50+ Completed 04/13/2023, 10/26/2021, 07/03/2019 HIV Screening Completed 11/09/2023, 11/09/2023 Hepatitis C Screening Completed 11/09/2023 Insurance [place] MED[place]
--- OUTSIDE RECORDS SUMMARY | 2025-04-25 16:07 | XMS_ITS | Encounter Summary ---
Author Organization [employer] Address [address] [place] [address] 7[address] [place] [address] Care Team Providers Care Nurses Assistant Name Role Phone Shanda Rg NP Primary Care Provider [phone] Jas Cordero Unavailable Unavailable Reason for Visit * Reason Comments Med Refill Encounter Details Date Type Department Care Team ([facility] st Contact Info) Description 06/08/2023 Refill [facility] MEDICINE [address] [place] [address] Jada Erickson FNP Seasonal allergic rhinitis, unspecified trigger Social History [...] Description 07/09/2025 9:00 AM EST Clinical Support [facility] MEDICINE [address] [place] [address] Cait Velazquez RN documented as of this encounter Visit Diagnoses Diagnosis Seasonal allergic rhinitis, unspecified trigger documented in this encounter Additional Health Concerns Assessment Noted Time PHQ-9 Depression Total Score: 10 023 9:23 AM EDT documented as of this encounter Care Teams Nurses Assistant Relationship Specialty Start Date End Date Shanda Rg NP [address] [place] [address] PCP - General Family Medicine 06/06/23 Jas Cordero FNP [address] [place] [address] Nurse Practitioner Family Medicine 07/24/23 Aixa gN Well LoggerCatalogue Clerk 09/11/23 documented as of this encounter
--- OUTSIDE RECORDS SUMMARY | 2025-04-25 16:07 | XMS_ITS | Encounter Summary ---
Author Organization [employer] Address [address] [place] [address] 7 [place] [address] Care Team Providers Care Wellness Program Administrator Name Role Phone Jada Erickson BELL NECK HAMMERER Primary Care Provider Shanda Roman INSURANCE MARKETING REP Primary Care Provider [phone] Jas Cordero BELL NECK HAMMERER Unavailable Unavailable Reason for Visit * Reason Comments Med Refill Encounter Details Date Type Department Care Team (Late st Contact Info) Description 05/30/2023 Refill [facility] MEDICINE [address] [place] [address] Jada Erickson FNP Pain; Cervical radiculopathy; Lumbar [...] Description 07/09/2025 9:00 AM EST Clinical Support [facility]INE [address] [facility] [place] [address] Cait Velazquez RN documented as of this encounter Visit Diagnoses Diagnosis Pain Generalized pain Cervical radiculopathy Brachial neuritis or radiculitis nos Lumbar radiculopathy Thoracic or lumbosacral neuritis or radiculitis, unspecified documented in this encounter Additional Health Concerns Assessment Noted Time PHQ-9 Depression Total Score: 0 04/13/20 9:39 AM EDT documented as of this encounter Care Teams Wellness Program Administrator Relationship Specialty Start Date End Date Jada Erickson FNP PCP - General Family Medicine 10/27/22 06/05/23 Shanda Rg NP [address] [place] [address] PCP - General Family Medicine 06/06/23 Jas Cordero FNP [address] [place] [address] Nurse Practitioner Family Medicine 07/24/23 Aixa Ng Bicycle AssemblerMilking Machine Mechanic 09/11/23 documented as of this encounter
--- OUTSIDE RECORDS SUMMARY | 2025-04-25 16:07 | XMS_ITS | Encounter Summary ---
Author Organization [employer] Address [address] [place] [address] 7 [place] [address] Care Team Providers Care Credit Risk Analyst Name Role Phone Shanda Rg NP Primary Care Provider [phone] Jas Cordero Unavailable Unavailable Reason for Visit * Reason Onset Date Comments Med Refill 01/27/2025 Encounter Details Date Type Department Care Team (Late st Contact Info) Description 01/27/2025 Telephone [facility] MEDICINE [address] [place] [address] Shanda Rg NP [address] [place] [address] Med Refill Social History Tobacco Use Types [...] encounter Miscellaneous Notes * Telephone Encounter - Gordon Sterling - 01/27/2025 3:44 PM EDT TC from pt requesting medication refill. Medications needing refill : traMADol (Ultram) 50 MG tablet To be sent to: [facility] - [place], [place] - [address] [place] [address] documented in this encounter Plan of Treatment Upcoming Encounters Date Type Department Care Team ([facility] st Contact Info) Description 07/09/2025 9:00 AM EST Clinical Support [facility] MEDICINE [address] [place] [address] Cait Velazquez RN documented as of this encounter Visit Diagnoses Not on filedocumented in this encounter Additional Health Concerns Assessment Noted Time PHQ-9 Depression Total Score: 23 025 2:34 PM EST documented as of this encounter Care Teams Credit Risk Analyst Relationship Specialty Start Date End Date Shanda Rg NP [address] [place] [address] PCP - General Family Medicine 06/06/23 Jas Cordero FNP [address] [place] [address] Nurse Practitioner Family Medicine 07/24/23 Aixa Ng Intake WorkerSugar Cane Planter Machine Operator 09/11/23 documented as of this encounter
--- OUTSIDE RECORDS SUMMARY | 2025-04-25 16:08 | XMS_ITS | Encounter Summary ---
Author Organization [facility] Address [address] [place] [address] Phone Care Team Providers Care Film Critic Name Role Phone Pcp, Unknown Primary Care Provider Unavailabl e Encounter Details Date Type Department Care Team (Late st Contact Info) Description 08/05/[address] [facility] [address] [place] [address] [place] [address] Social History Tobacco Use Types Packs/Day Years Used Date Smoking Tobacco: Never Assessed Sex and Gender Information Value Date Recorded Sex Assigned at Not on file Legal Sex Male 2:34 PM EST Gender Identity Not on file Sexual Orientation Not on file documented as of this encounter Plan of Treatment Not on file documented as of this encounter Visit Diagnoses Not on filedocumented in this encounter Care Teams Film Critic Relationship Specialty Start Date End Date Pcp, Unknown PCP - General 07/06/17 documented as of this encounter Additional Source Comments The information contained in this document represents components of the legal health record. It is not the complete legal health record.[facility]
--- OUTSIDE RECORDS SUMMARY | 2025-04-25 16:08 | XMS_ITS | Encounter Summary ---
Author Organization [employer] [facility] Address [address] [place] [address] [place] [address] Care Team Providers Care Lab Engineer Name Role Phone Carmen Faust MD Primary Care Provider Cali Lundberg SUPERVISOR TRAVEL INFORMATION CENTER Primary Care Provider Jada Gomez SUPERVISOR TRAVEL INFORMATION CENTER Primary Care Provider Marissa Shanda Mensah NP Primary Care Provider [phone] Jas Cordeor SUPERVISOR TRAVEL INFORMATION CENTER Unavailable Unavailable Encounter Details Date Type Department Care Team (Late st Contact Info) Description 08/05/2022 Orders Only [facility] MEDICINE [address] [place] [address] Matthew Dunbar MD [address] [place] [address] Social History Tobacco Use Types Packs/Day Years [...] Description 07/09/2025 9:00 AM EST Clinical Support [facility] MEDICINE [address] [place] [address] Cait Velazquez RN documented as of this encounter Visit Diagnoses Not on filedocumented in this encounter Care Teams Lab Engineer Relationship Specialty Start Date End Date Carmen Faust MD PCP - General Family Medicine 02/17/20 09/20/22 Cali Steward FNP PCP - General Family Medicine 09/21/22 10/26/22 Jada Erickson FNP PCP - General Family Medicine 10/27/22 06/05/23 Shanda Rg NP [address] [place] [address] PCP - General Family Medicine 06/06/23 Jas Cordero FNP [address] [place] [address] Nurse Practitioner Family Medicine 07/24/23 Aixa Ng Mechanic WelderPallet Sorter 09/11/23 documented as of this encounter
--- OUTSIDE RECORDS SUMMARY | 2025-04-25 16:08 | XMS_ITS | Encounter Summary ---
Author Organization [employer] [facility] Address [address] [place] [address] [place] [address] Care Team Providers Care Financial Compliance Manager Name Role Phone Carmen Faust MD Primary Care Provider Cali Lundberg Primary Care Provider Jada Gomez GRADER OPERATOR Primary Care Provider Shanda Roman NP Primary Care Provider [phone] Jas Cordero GRADER OPERATOR Unavailable Unavailable Encounter Details Date Type Department Care Team (Latest Contact Info) Description 07/15/2019 Abstract [facility] Dental, Provider, DDS Social History Tobacco [...] Description 07/09/2025 9:00 AM EST Clinical Support [facility] [address] [place] [address] Cait Velazquez, LUCY documented as of this encounter Visit Diagnoses Not on filedocumented in this encounter Care Teams Financial Compliance Manager Relationship Specialty Start Date End Date Carmen Faust MD PCP - General Family Medicine 02/17/20 09/20/22 Cali Steward FNP PCP - General Family Medicine 09/21/22 10/26/22 Jaad Erickson FNP PCP - General Family Medicine 10/27/22 06/05/23 Shanda Rg NP [address] [place] [address] PCP - General Family Medicine 06/06/23 Jas Cordero FNP [address] [place] [address] Nurse Practitioner Family Medicine 07/24/23 Aixa Ng Back RollerUltimate Hoops Referee 09/11/23 documented as of this encounter
--- OUTSIDE RECORDS SUMMARY | 2025-04-25 16:08 | XMS_ITS | Encounter Summary ---
Author Organization [employer] Address [address] [place] [address] 7 [place] [address] Care Team Providers Care Narrow Gauge Brakeman Name Role Phone Dre Jada Huntley TECHNICAL SYSTEM ANALYST Primary Care Provider Marissa Shanda Mensah NP Primary Care Provider [phone] Jas Cordero Unavailable Unavailable Reason for Visit * Reason Comments Med Refill Encounter Details Date Type Department Care Team (Late st Contact Info) Description 10/31/2022 Refill [facility] MEDICINE [address] [place] [address] Jas Cordero FNP Major depressive disorder with [...] 11/02/2022 11:52 AM EST FYI, Pt had TRUMPET TEACHER RV today. Urine/Pill count WNL. Bp 152/108, stated he had taken his blood pressure medication this morning. documented in this encounter Plan of Treatment Upcoming Encounters Date Type Department Care Team (Late st Contact Info) Description 07/09/2025 9:00 AM EST Clinical Support [facility] MEDICINE [address] [place] [address] Cait Velazquez, LUCY documented as of this encounter Visit Diagnoses Diagnosis Major depressive disorder with psychotic features (CMS/HCC) documented in this encounter Additional Health Concerns Assessment Noted Time PHQ-9 Depression Total Score: 9 09/27/19 9:22 AM EST documented as of this encounter Care Teams Narrow Gauge Brakeman Relationship Specialty Start Date End Date Jada Erickson FNP PCP - General Family Medicine 10/27/22 06/05/23 Shanda Rg NP [address] [place] [address] PCP - General Family Medicine 06/06/23 Jas Cordero FNP [address] [place] [address] Nurse Practitioner Family Medicine 07/24/23 Aixa Ng Machinist Supervisor OutsideHospital Nursing Assistant 09/11/23 documented as of this encounter
--- OUTSIDE RECORDS SUMMARY | 2025-04-25 16:08 | XMS_ITS | Encounter Summary ---
Author Organization [employer] [facility] Address [address] [place] [address] [address] [address] Care Team Providers Care Route Sales Representative Name Role Phone Carmen Faust MD Primary Care Provider Cali Lundberg Primary Care Provider Jada Gomez CRACKING UNIT OPERATOR Primary Care Provider Shanda Roman NP Primary Care Provider [phone] Jas Cordero Unavailable Unavailable Reason for Visit * Reason Comments Med Refill Encounter Details Date Type Department Care Team (Late st Contact Info) Description 09/01/2022 Refill [facility] MEDICINE [address] [place] [address] Jas Cordero FNP Social History Tobacco Use [...] Description 07/09/2025 9:00 AM EST Clinical Support [facility] MEDICINE [address] [place] [address] Caroline, Cait, RN documented as of this encounter Visit Diagnoses Not on filedocumented in this encounter Additional Health Concerns Assessment Noted Time PHQ-9 Depression Total Score: 12 022 9:34 AM EST documented as of this encounter Care Teams Route Sales Representative Relationship Specialty Start Date End Date Carmen Faust MD PCP - General Family Medicine 02/17/20 09/20/22 Cali Steward FNP PCP - General Family Medicine 09/21/22 10/26/22 Jada Erickson FNP PCP - General Family Medicine 10/27/22 06/05/23 Shanda Rg NP [address] [place] [address] PCP - General Family Medicine 06/06/23 Jas Cordero FNP [address] [place] [address] Nurse Practitioner Family Medicine 07/24/23 Aixa Ng Preschool ParaprofessionalShip Design Teacher 09/11/23 documented as of this encounter
--- OUTSIDE RECORDS SUMMARY | 2025-04-25 16:08 | XMS_ITS | Encounter Summary ---
Author Organization [employer] Address [address] [place] [address] 7 [place] [address] Care Team Providers Care Music Publicist Name Role Phone Shanda Rg NP Primary Care Provider [phone] Jas Cordero Unavailable Unavailable Reason for Visit * Reason Onset Date Comments Med Refill 02/15/2024 Encounter Details Date Type Department Care Team (Late st Contact Info) Description 02/15/2024 Telephone [facility] MEDICINE [address] [place] [address] Shanda Rg NP [address] [employer], [place] [address] Med Refill Social History Tobacco Use Types [...] 10:43 AM EDT Medication was sent to [facility] on 01/30/24 #30 with 5 refills. * Telephone Encounter - Susan Mendoza - 02/15/2024 10:39 AM EDT TC from pt requesting medication refill. Medications needing refill : zolpidem (Ambien) 10 MG tablet To be sent to: [facility] - [place], [place] - [address] [facility] documented in this encounter Plan of Treatment Upcoming Encounters Date Type Department Care Team (Late st Contact Info) Description 07/09/2025 9:00 AM EST Clinical Support [facility] MEDICINE [address] [place] [address] Cait Velazquez, RN documented as of this encounter Visit Diagnoses Not on filedocumented in this encounter Additional Health Concerns Assessment Noted Time PHQ-9 Depression Total Score: 9 01/30/20 24 9:09 AM EDT documented as of this encounter Care Teams Music Publicist Relationship Specialty Start Date End Date Shanda Rg NP [address] [place] [address] PCP - General Family Medicine 06/06/23 Jas Cordero FNP [address] [place] [address] Nurse Practitioner Family Medicine 07/24/23 Aixa Ng Fire Hazard InspectorSubsurface Augmentee Elint Operator 09/11/23 documented as of this encounter
--- OUTSIDE RECORDS SUMMARY | 2025-04-25 16:08 | XMS_ITS | Clinical Summary ---
Author Organization [facility] Address [address] [place] [address] [place] [address] Phone Care Team Providers Care Cnc Lathe Machinist Name Role Phone Pcp, Unknown Primary Care Provider Unavailabl e Social History Tobacco Use Types Packs/Day Years Used Date Smoking Tobacco: Never Assessed Education Answer Date Recorded Are you interested in more education? Not on cintia e 12/23/2022 Are you concerned about learning? Not on file 12/23/2022 No 12/23/2022 No 12/23/2022 Digital Access Answer Date Recorded No 01/24/2023 No 01/24/2023 No 01/24/2023 Reliable internet access at home? Not on file 01/24/2023 Device with a working camera? Not on file Sex and Gender Information Value Date Recorded Sex Assigned at Not on file Legal Sex Male 2:34 PM EST Gender Identity Not on file Sexual Orientation Not on file Plan of Treatment Not on file Medical Devices Not on file Insurance [facility] [employer] Member Subscriber Plan / Payer (Ef fective 2017-Present) Name:Davidson Gillespie Relation to Subscriber:Self Name:Davidson Gillespie Payer ID:[id number] Group ID:[id number] Type:Medicaid Address: [address] [facility] [employer] [facility] [employer] Member Subscriber Plan / Payer (Ef fective 2017-Present) Name:Davidson Gillespie Relation to Subscriber:Self Name:Davidson Gillespie Payer ID:[id number] Group ID:[id number] Type:Medicaid Address: [address] C[employer] [facility] [employer] Member Subscriber Plan / Payer (Ef fective 2017-Present) Name:Davidson Gillespie Relation to Subscriber:Self Name:Davidson Gillespie Payer ID:[id number] Group ID:[id number] Type:Medicaid Address: [address] C[employer] [facility] [employer] Member Subscriber Plan / Payer (Ef fective 2017-Present) Name:Davidson Gillespie Relation to Subscriber:Self Name:Davidson Gillespie Payer ID:[id number] Group ID:[id number] Type:Medicaid Address: [address] C[employer] [facility] [employer] Member Subscriber Plan / Payer (Ef fective 2017-Present) Name:Davidson Gillespie Relation to Subscriber:Self Name:Davidson Gillespie Payer ID:[id number] Group ID:[id number] Type:Medicaid Address: [address] [place] [address] [place] [address] [employer] Member Subscriber Plan / Payer (Ef fective 2017-Present) Name:Davidson Gillespie Relation to Subscriber:Self Name:Davidson Gillespie Payer ID:[id number] Group ID:[id number] Type:Medicaid Address: [address] [employer] [facility] [employer] Member Subscriber Plan / Payer (Ef fective 2017-Present) Name:Davidson Gillespie Relation to Subscriber:Self Name:Davidson Gillespie Payer ID:[id number] Group ID:[id number] Type:Medicaid Address: [address] [place], [place] [address]PLUS Member Subscriber Plan / Payer (Ef fective 2017-Present) Name:Davidson Gillespie Relation to Subscriber:Self Name:Davidson Gillespie Payer ID:[id number] Group ID:[id number] Type:Medicaid Address: [address] [employer] [facility] [employer] Care Teams Cnc Lathe Machinist Relationship Specialty Start Date End Date Pcp, Unknown PCP - General 07/06/17 Additional Source Comments The information contained in this document represents components of the legal health record. It is not the complete legal health record.[facility]
== END 2025-04-25 16:04 | disposition home or self-care (01) ==
LOC: HO.HHCL 16:03
PROVIDERS: PCP Nurse Practitioner; Referring Provider Nurse Practitioner Family; Visit Provider Nurse Practitioner
DX: M25.50 Pain in unspecified joint (principal)
CPT/HCPCS: 36415; 85652; 86140; 86200; 86431

== ENCOUNTER 2025-04-29 09:02 | Outpatient (REF) | payer MEDICAID, SELFPAY ==
--- OUTSIDE RECORDS SUMMARY | 2025-04-25 15:15 | XMS_ITS | Encounter Summary ---
Author Organization [employer] Address [address] [place] [address] [address] [place] [address] Care Team Providers Care Nutrition Manager Name Role Phone Shanda Rg NP Primary Care Provider [phone] Jas Cordero Unavailable Unavailable Reason for Visit * Reason Comments sick onsite Encounter Details Date Type Department Care Team ([facility] st Contact Info) Description 04/25/2025 3:15 PM EDT Office Visit [facility] [address] [place] [address] Shanda Rg NP [address] [place] [address] Generalized joint pain (Primary Dx) Social History [...] Description 07/09/2025 9:00 AM EST Clinical Support [facility] [address] [place] [address] Cait Velazquez, RN Scheduled Orders Name Type Priority Associated Diagnoses Orde r Schedule Cyclic Citrullinated Peptide (CCP) Antibody (IgG) Lab Routine Generalized joint pain Expected: 04/25/2025 (Approximate), Expires: 04/25/2026 documented as of this encounter Procedures Procedure Name Priority Date/Time Associated Diagnosis Comments SED RATE BY MODIFIED WESTERGREN Routine 04/25/2025 4:10 PM EDT Generalized joint pain RHEUMATOID FACTOR Routine 04/25/2025 4:1 0 PM EDT Generalized joint pain C-REACTIVE PROTEIN Routine 04/25/2025 4: 10 PM EDT Generalized joint pain documented in this encounter Results * Sed Rate by Modified Westergren (04/25/2025 4:10 PM EDT) Erythrocyte Sedimentation Rate 9 0 - 15 MM/HR [facility] Comment:Patients with polycy themia and many hemoglobin abnormalitiesmay have depressed sed rates whereas patients with anemiamay have elevated sed rates. Blood Venous blood specimen / Unknown 04/25/2025 4:10 PM EDT 04/25/2025 5:25 PM EDT [facility] LAB BLOOD ORDERABLES Final Resu lt Performing Organization Address [facility]/ZIP Co de Phone Number [facility] [address] [place] [address] [phone] * (ABNORMAL) C-reactive Protein (04/25/2025 4:10 PM EDT) C Reactive Protein 1.71(H) < or = 0.50 mg/dL [facility] Blood Venous blood specimen / Unknown 04/25/2025 4:10 PM EDT 04/25/2025 5:23 PM EDT [facility] SENIOR FIRMWARE ENGINEER LAB BLOOD ORDERABLES Final Resu lt Performing Organization Address City/[facility]/ZIP Co de Phone Number [facility] [address] [place] [phone] * Rheumatoid Factor (04/25/2025 4:10 PM EDT) Rheumatoid Factor <13.0 <15.0 IU/mL [facility] Blood Venous blood specimen / Unknown 04/25/2025 4:10 PM EDT 04/25/2025 5:23 PM EDT us Shanda Rg SENIOR FIRMWARE ENGINEER LAB BLOOD ORDERABLES Final Resu lt [facility] [address] [place] [phone] documented in this encounter Visit Diagnoses Diagnosis Generalized joint pain- Primary documented in this encounter Additional Health Concerns Assessment Noted Time PHQ-9 Depression Total Score: 17 025 3:44 PM EDT documented as of this encounter Care Teams Nutrition Manager Relationship Specialty Start Date End Date Shanda Rg NP [address] [place] [address] PCP - General Family Medicine 06/06/23 Jas Cordero FNP [address] [place] [address] Nurse Practitioner Family Medicine 07/24/23 Aixa Ng Camp HousekeeperOcean Export Coordinator 09/11/23 documented as of this encounter
--- OUTSIDE RECORDS SUMMARY | 2025-04-29 09:53 | XMS_ITS | Encounter Summary ---
Author Organization [employer] Address [address] [place] [address] 7t [place] [address] Care Team Providers Care Organ Grinder Name Role Phone Shanda Rg NP Primary Care Provider [phone] Jas Cordero Unavailable Unavailable Encounter Details Date Type Department Care Team ([facility] Contact Info) Description 07/12/2024 Telephone [facility] [address] [place], [place] [phone] Shanda Rg NP [address] [place], [place] [phone] Social History Tobacco Use Types Packs/Day Years [...] Description 07/09/2025 9:00 AM EST Clinical Support [facility] [address] [place] [address] Cait Velazquez RN documented as of this encounter Visit Diagnoses Not on filedocumented in this encounter Additional Health Concerns Assessment Noted Time PHQ-9 Depression Total Score: 9 01/30/20 24 9:09 AM EDT documented as of this encounter Care Teams Organ Grinder Relationship Specialty Start Date End Date Shanda Rg NP [address] [place] [address] PCP - General Family Medicine 06/06/23 Jas Cordero FNP [address] [place] [address] Nurse Practitioner Family Medicine 07/24/23 Aixa Ng Gas Derrick OperatorLaundry Washer 09/11/23 documented as of this encounter
--- OUTSIDE RECORDS SUMMARY | 2025-04-29 09:53 | XMS_ITS | Encounter Summary ---
Author Organization [employer] Address [address] [facility] 7t [place] [address] Care Team Providers Care Analytical Research Chemist Name Role Phone Shanda Rg NP Primary Care Provider [phone] Jas Cordero Unavailable Unavailable Encounter Details Date [...] Description 07/09/2025 9:00 AM EST Clinical Support [facility] [address] [place] [address] Cait Velazquez, RN documented as of this encounter Visit Diagnoses Not on filedocumented in this encounter Additional Health Concerns Assessment Noted Time PHQ-9 Depression Total Score: 17 025 3:44 PM EDT documented as of this encounter Care Teams Analytical Research Chemist Relationship Specialty Start Date End Date Shanda Rg NP [address] [place] [address] PCP - General Family Medicine 06/06/23 Jas Cordero FNP [address] [place] [address] Nurse Practitioner Family Medicine 07/24/23 Aixa Ng Aquatic Life LaborerScrew Eye Assembler 09/11/23 documented as of this encounter
--- OUTSIDE RECORDS SUMMARY | 2025-04-29 09:53 | XMS_ITS | Encounter Summary ---
Author Organization [employer] [facility] Address [address] [place] [address] 7 [place] [address] Care Team Providers Care Supervisor Hairspring Fabrication Name Role Phone Jada Erickson DIAL MARKER Primary Care Provider Shanda Roman TAX EXAMINER Primary Care Provider Jas Cordero DIAL MARKER Unavailable Unavailable Reason for Visit * Reason Comments Med Refill Encounter Details Date Type Department Care Team ([facility] Contact Info) Description 01/24/[address] [address] Jada Erickson FNP Pain; Cervical radiculopathy; Lumbar [...] Upcoming Encounters Date Type Department Care Team ([facility] Contact Info) Description 07/09/2025 9:00 AM EST Clinical Support [facility] [address] [place] [address] Cait Velazquez, LUCY documented as of this encounter Visit Diagnoses Diagnosis Pain Generalized pain Cervical radiculopathy Brachial neuritis or radiculitis nos Lumbar radiculopathy Thoracic or lumbosacral neuritis or radiculitis, unspecified documented in this encounter Additional Health Concerns Assessment Noted Time PHQ-9 Depression Total Score: 9 01/18/20 12:56 PM EDT documented as of this encounter Care Teams Supervisor Hairspring Fabrication Relationship Specialty Start Date End Date Jada Erickson FNP PCP - General Family Medicine 10/27/22 06/05/23 Shanda Rg NP [address] [place] [address] PCP - General Family Medicine 06/06/23 Jas Cordero FNP [address] [place] [address] Nurse Practitioner Family Medicine 07/24/23 Aixa Ng Service Liaison RepresentativeMajor Assembly Inspector 09/11/23 documented as of this encounter
--- OUTSIDE RECORDS SUMMARY | 2025-04-29 09:53 | XMS_ITS | Encounter Summary ---
Author Organization [employer] Address [address] [place] [address] 7 [place] [address] Care Team Providers Care Mica Laminating Machine Feeder Name Role Phone Shanda Rg NP Primary Care Provider [phone] Jas Cordero Unavailable Unavailable Reason for Visit * Reason Comments Med Refill Encounter Details Date Type Department Care Team (Late st Contact Info) Description 08/01/2023 Refill [facility] [address] [place] [address] Lianet Mae FNP [address] [place] [address] Pain; Cervical radiculopathy; Lumbar radiculopathy Social History [...] Description 07/09/2025 9:00 AM EST Clinical Support [facility] [address] [place] [address] Cait Velazquez RN documented as of this encounter Visit Diagnoses Diagnosis Pain Generalized pain Cervical radiculopathy Brachial neuritis or radiculitis nos Lumbar radiculopathy Thoracic or lumbosacral neuritis or radiculitis, unspecified documented in this encounter Additional Health Concerns Assessment Noted Time PHQ-9 Depression Total Score: 4 08/01/20 23 11:20 AM EST documented as of this encounter Care Teams Mica Laminating Machine Feeder Relationship Specialty Start Date End Date Shanda Rg NP [address] [place] [address] PCP - General Family Medicine 06/06/23 Jas Cordero FNP [address] [place] [address] Nurse Practitioner Family Medicine 07/24/23 Aixa Ng Prosthetic AssistantMeter/Relay Craftsman 09/11/23 documented as of this encounter
--- OUTSIDE RECORDS SUMMARY | 2025-04-29 09:53 | XMS_ITS | Encounter Summary ---
Author Organization [employer] Address [address] [place] [address] 7t [place] [address] Care Team Providers Care Liquid Sugar Fortifier Name Role Phone Shanda Rg NP Primary Care Provider [phone] Jas Cordero Unavailable Unavailable Encounter Details Date Type Department Care Team ([facility] Contact Info) Description 08/15/2024 Telephone [facility] MED[facility]INE [address] [place], [place] [phone] Shanda Rg NP 230 [place], [place] [phone] Social History Tobacco Use Types Packs/Day Years [...] Description 07/09/2025 9:00 AM EST Clinical Support [facility] [address] [place] [address] Cait Velazquez RN documented as of this encounter Visit Diagnoses Not on filedocumented in this encounter Additional Health Concerns Assessment Noted Time PHQ-9 Depression Total Score: 9 01/30/20 24 9:09 AM EDT documented as of this encounter Care Teams Liquid Sugar Fortifier Relationship Specialty Start Date End Date Shanda Rg NP [address] [place] [address] PCP - General Family Medicine 06/06/23 Jas Cordero FNP [address] [place] [address] Nurse Practitioner Family Medicine 07/24/23 Aixa Ng Registered Nurse SupervisorHeel Packer 09/11/23 documented as of this encounter
--- OUTSIDE RECORDS SUMMARY | 2025-04-29 09:53 | XMS_ITS | Encounter Summary ---
Author Organization [employer] Address [address] [place] [address] 7 [place] [address] Care Team Providers Care Drip Box Tender Name Role Phone Shanda Rg NP Primary Care Provider [phone] Jas Cordero Unavailable Unavailable Reason for Visit * Reason Onset Date Comments Appointment Request 09/25/2023 Encounter Details Date Type Department Care Team ([facility] st Contact Info) Description 09/25/2023 Telephone [facility] MED[facility]INE [address] [place] [address] Shanda Rg NP [address] [place], [place] [phone] Appointment Request Social History Tobacco Use Types [...] regarding existing conditions. Please contact pt at [phone]. Turkish speaking documented in this encounter Plan of Treatment Upcoming Encounters Date Type Department Care Team (Late st Contact Info) Description 07/09/2025 9:00 AM EST Clinical Support [facility] MEDICINE [address] [place] [address] Cait Velazquez RN documented as of this encounter Visit Diagnoses Not on filedocumented in this encounter Additional Health Concerns Assessment Noted Time PHQ-9 Depression Total Score: 4 08/01/20 11:20 AM EST documented as of this encounter Care Teams Drip Box Tender Relationship Specialty Start Date End Date Shanda Rg NP [address] [place] [address] PCP - General Family Medicine 06/06/23 Jas Cordero FNP [address] [place] [address] Nurse Practitioner Family Medicine 07/24/23 Aixa Ng Insurance Risk SurveyorMunicipal Maintenance Worker 09/11/23 documented as of this encounter
--- OUTSIDE RECORDS SUMMARY | 2025-04-29 09:53 | XMS_ITS | Encounter Summary ---
Author Organization [employer] Address [address] [place] [address] 7t [place] [address] Care Team Providers Care Meter Repairer Helper Name Role Phone Shanda Rg NP Primary Care Provider [phone] Jas Cordero Unavailable Unavailable Reason for Visit * Reason Comments Med Refill Encounter Details Date Type Department Care Team ([facility] st Contact Info) Description 06/08/2023 Refill [facility] MED[facility]INE [address] [place] [address] Jada Erickson FNP Seasonal allergic rhinitis, unspecified [...] Description 07/09/2025 9:00 AM EST Clinical Support [facility] MEDICINE [address] [place] [address] Cait Velazquez RN documented as of this encounter Visit Diagnoses Diagnosis Seasonal allergic rhinitis, unspecified trigger documented in this encounter Additional Health Concerns Assessment Noted Time PHQ-9 Depression Total Score: 10 023 9:23 AM EDT documented as of this encounter Care Teams Meter Repairer Helper Relationship Specialty Start Date End Date Shanda Rg NP [address] [place] [address] PCP - General Family Medicine 06/06/23 Jas Cordero FNP [address] [place] [address] Nurse Practitioner Family Medicine 07/24/23 Aixa Ng Bowling Ball PatcherPicker 09/11/23 documented as of this encounter
--- OUTSIDE RECORDS SUMMARY | 2025-04-29 09:53 | XMS_ITS | Encounter Summary ---
Author Organization [employer] Address [address] [place] [address] 7 [place] [address] Care Team Providers Care Cashier And Waiter/Waitress Name Role Phone Shanda Rg NP Primary Care Provider [phone] Jas Cordero Unavailable Unavailable Reason for Visit * Reason Onset Date Comments Med Refill 03/25/2024 Encounter Details Date Type Department Care Team (Late st Contact Info) Description 03/25/2024 Telephone [facility] MEDICINE [address] [place] [address] Shanda Rg NP [address] [place], [place] [phone] Med Refill Social History Tobacco Use Types [...] qty - 112 for 28 dayssupply. From [facility] pharmacy. * Telephone Encounter - Jean Rosario - 03/25/2024 1:38 PM EDT TC from pt requesting medication refill. Medications needing refill: traMADol (Ultram) 50 MG tablet To be sent to: [facility] Pharmacy documented in this encounter Plan of Treatment Upcoming Encounters Date Type Department Care Team (Late st Contact Info) Description 07/09/2025 9:00 AM EST Clinical Support [facility] MEDICINE [address] [place] [address] Cait Velazquez RN documented as of this encounter Visit Diagnoses Not on filedocumented in this encounter Additional Health Concerns Assessment Noted Time PHQ-9 Depression Total Score: 9 01/30/20 24 9:09 AM EDT documented as of this encounter Care Teams Cashier And Waiter/Waitress Relationship Specialty Start Date End Date Appram, Shanda, FLAT BREAKDOWN PROCESSOR [address] [place] [address] PCP - General Family Medicine 06/06/23 Jas Cordero FNP [address] [place] [address] Nurse Practitioner Family Medicine 07/24/23 Aixa Ng Nuclear Equipment Design EngineerWhite Goods Appliance Tech 09/11/23 documented as of this encounter
--- OUTSIDE RECORDS SUMMARY | 2025-04-29 09:53 | XMS_ITS | Clinical Summary ---
Author Organization [employer] Address [address] [place] [address] 7 [place] [address] Care Team Providers Care Sawyer Cork Slabs Name Role Phone Shanda Rg NP Primary Care Provider [phone] Jas Cordero Unavailable Unavailable Allergies No [...] hours. 02/21/20 20 Active Fluocinolone Acetonide Scalp ([facility]athrow-Smoothe /FS Scalp) 0.01 % oilIndications :Psoriasis Use [...] tabletIndicati ons:Major depressive disorder with psychotic features ([facility]/HCC) TAKE 1 TABLET BY MOUTH EVERY DAY [...] 2 diabetes mellitus without complication, unspecified whether assisted insulin use ([facility]) TEST BLOOD SUGAR ONCE DAILY 100 each 11 04/20 25 Active glucose blood (FREESTYLE LITE) test stripIndicatio ns:Type 2 diabetes mellitus without complication, unspecified whether terminal system operator insulin use ([facility]) TEST BLOOD SUGAR ONCE DAILY 50 each 10/30/19 25 Active Blood Glucose Monitoring Suppl (FreeStyle Lite) w/Device kitIndications :Type 2 diabetes mellitus without complication, unspecified whether terminal system operator insulin use ([facility]) 1 kit 3 times daily. 1 kit 10/30/19 25 Active Alcohol Swabs 70 % padsIndication s:Type 2 diabetes mellitus without complication, unspecified whether assisted insulin use ([facility]) 1 Units 3 times daily. 90 each 3 10/30/19 25 Active metFORMIN (Glucophage) 500 MG tabletIndicati ons:Type 2 diabetes mellitus without complication, without long-term current use of insulin ([facility]) TAKE 1 TABLET BY MOUTH EVERY [...] Plan (10/19/2024 12:10 PM EST): -followed by [facility] pain management group -continue tramadol as ordered -encouraged to continue BALLAST INSPECTOR appointments and encouraged to give some thought [...] that showed slight lumbar dextrocurvature with trace upav-hx-xduvp lateral lithesis at L4-L5. Trace anterolithesis at [...] retiring patient will be transferred to new [facility] Psychiatric Prescriber. Pt is aware that those appointments will be via televisit, and that the provider is not an [facility] employee. He gives verbal consent to [...] Description 04/25/2025 3:15 PM EDT Office Visit [address] [address] Shanda Rg NP Generalized joint pain (Primary Dx) 04/25/2025 Travel 04/22/[address] [address] Shanda Rg NP Nurse Triage 04/14/2025 Refill [facility] [address] [place] [address] Shanda Rg NP Radiculopathy, cervical region 04/04/2025 Refill [facility] [address] [place] [address] Cait Velazquez RN Chronic pain of both knees 04/01/[address] [address] Shanda Rg NP Chronic pain of both knees 03/16/[address] [address] Shanda Rg NP Psoriasis 03/11/2025 9:30 AM EDT Clinical Support [address] [address] Cait Velazquez, RN Long-term current use of opiate analgesic (Primary Dx) 03/11/[address] [address] Cait Velazquez, LUCY BPI Scoring 03/11/2025 Travel 03/07/2025 2:30 PM EDT Office Visit [address] [address] Shanda Rg NP Type 2 diabetes mellitus without complication, unspecified whether assisted insulin use ([facility]) 03/07/2025 Travel 03/06/2025 Refill [facility] [address] [place] [address] Shanda Rg NP Radiculopathy, cervical region 03/03/2025 Refill [facility] [address] [place] [address] Shanda Rg NP Chronic pain of both knees 01/30/2025 Telephone [facility] [address] [place] [address] Shanda Rg NP Appointment Request 01/27/2025 Refill [facility] [address] [place] [address] Modesta Marmolejo RN Chronic pain of both knees 01/27/2025 Telephone [facility] [address] [place] [address] Shanda Rg NP Med Refill from Last [...] Description 07/09/2025 9:00 AM EST Clinical Support [facility] [address] [place], [place] [phone] Cait Velazquez, RN Health Maintenance Due Date Last Done Comments CT Colonography 1965 FIT DNA/Cologuard 1965 FIT 1965 FOBT 1965 Sigmoidoscopy 1965 Hepatitis B Vaccines (2 of 3 - 19+ 3-dose series) 05/11/2023 04/13/2023 COVID-19 Vaccine ( season) 2025 09/02/2022, 2021, 12/07/2020, Additional history exists Influenza [...] 04/25/2025 4:10 PM EDT Generalized joint pain C-REACTIVE PROTEIN Routine 04/25/2025 4: 10 PM EDT Generalized joint pain RHEUMATOID FACTOR Routine 04/25/2025 4:1 0 PM EDT Generalized joint pain POCT ADRIAN-14 URINE DRUG SCREEN Routine 03/11/2025 9:35 AM EDT Long-term current use of opiate analgesic POCT GLUCOSE Routine 03/07/2025 2:49 PM EDT Type 2 diabetes mellitus without complication, unspecified whether assisted insulin use ([facility]) HEMOGLOBIN A1C Routine 11/19/2024 8:55 AM [...] Recently Relevant to Health Maintenance Results * Sed Rate by Modified Adairergren (04/25/2025 4:10 PM EDT) Erythrocyte Sedimentation Rate 9 0 - 15 MM/HR [facility] Comment:Patients with polycy themia and many hemoglobin abnormalitiesmay have depressed sed rates whereas patients with anemiamay have elevated sed rates. Blood Venous blood specimen / Unknown 04/25/2025 4:10 PM EDT 04/25/2025 5:25 PM EDT Shanda Cole [employer] LAB BLOOD ORDERABLES Final Resu lt Performing Organization Address [facility]/ZIP Co de Phone Number [facility] [address] [place] [phone] * Rheumatoid Factor (04/25/2025 4:10 PM EDT) Rheumatoid Factor <13.0 <15.0 IU/mL [facility] Blood Venous blood specimen / Unknown 04/25/2025 4:10 PM EDT 04/25/2025 5:23 PM EDT [facility] [employer]SP[employer] DRIVER LAB BLOOD ORDERABLES Final Resu lt Performing Organization Address City/[facility]/ZIP Co de Phone Number [facility] [address] [place] [phone] * (ABNORMAL) C-reactive Protein (04/25/2025 4:10 PM EDT) [facility] C Reactive Protein 1.71(H) < or = 0.50 mg/dL [facility] Blood Venous blood specimen / Unknown 04/25/2025 4:10 PM EDT 04/25/2025 5:23 PM EDT [facility] Kelsey DEEPA LAB BLOOD ORDERABLES Final Resu lt [facility] [address] [place] [phone] * POCT ADRIAN-14 Urine Drug Screen (03/11/2025 9:35 AM EDT) [facility] THC Negative Negative Cocaine Screen, Urine Negative [...] procedure / Unknown 03/11/2025 9:35 AM EDT Cait Moreira RN - 03/11/2025 9:35 AM EDT UTOX cup Lot#[id number] Exp. 06/03/26 Internal Pass Control Shanda oCle DEEPA POINT OF CARE TEST ENTER/EDIT O RDERABLES Final Result * POCT Glucose (03/07/2025 2:49 PM EDT) [facility] Glucose Blood, POC 106 60 - 200 mg/dL QC Media Lot # [id number] Lot# Expiration Date Blood Capillary blood specimen / Unknown 03/07/2025 2:49 PM EDT Shanda Rg NP POINT OF CARE TEST ENTER/EDIT O RDERABLES Final Result * (ABNORMAL) Hemoglobin A1c (11/19/2024 8:55 AM EDT) Hemoglobin A1c 6.8(H) <6.0 % [facility] Comment:Hemoglobin A1C Refer ence Range Adults: 4.8 - 6.0 % Non diabetic: < 6.0 % Goal: < 7.0 %Additional Action Suggested: > 8.0 %Note: Hemoglobin A1c results are invalid for patients with abnormal amounts of HbF. Blood transfusions may impact the HbA1c concentration in the patient sample. Estimated Average Glucose 148 mg/dL [facility] Comment:eAG = Estimated ave rage glucose which is %A1C expressed asaverage glucose, using the formula of the T6Q-YrgxrrqLznpsyo Glucose study (ADAG), Diabetes Care, Vol.31,#8,Mar. 2007 11/19/2024 8:55 AM EDT 11/19/2024 8:55 AM EDT Generic External Data Provider LAB BLOOD ORDERAB LES Final Result Performing Organization Address City/State/[facility] Co de Phone Number [facility] [address] [place] [phone] * Albumin, Random Urine W/Creatinine (09/05/2024 8:35 AM EST) Creatinine, Urine 117.04 mg/dL [facility] Microalbumin Urine 8.0 mg/L [facility] Microalbum Creatinine Ratio Ur 6.8 <30 ug/mg cr [facility] Comment:Albumin/Creatinine R atio Reference Ranges: Normal: < 30 ug/mg creatinine Microalbuminuria: 30 - 300 ug/mg creatinineClinical Albuminuria: > 300 ug/mg creatinine Urine (Urine, Random) 09/05/2024 8:35 AM EST 09/05/2024 11:21 AM EST us Shanda Appram [employer] LAB URINE ORDERABLES Final Resu lt Performing Organization Address City/[facility]/ZIP Co de Phone Number [facility] [address] [place] [phone] [phone] * (ABNORMAL) Lipid Panel, Standard (09/05/2024 8:35 AM EST) Triglycerides 344(H) <150 mg/dL [facility] Comment:Mild Lipemia.Desirab le Triglyceride: less than 150 mg/dLBorderline High Triglyceride 150-199 mg/dLHigh Triglyceride: 200-499 mg/dLVery High Triglyceride: greater than or equal to 5OO mg/dL Cholesterol 183 <200 mg/dL [facility] Comment:Desirable Cholestero l: less than 200 mg/dLBorderline High Cholesterol: 200-239 mg/dLHigh Cholesterol: greater than 239 mg/dL LDL Cholesterol Calculated 82 <100 mg/dL [facility] Comment:Desirable LDL: less than 100 mg/dLNear Optimal/Above Optimal LDL: 110- 129 mg/dLBorderline High LDL: 130-159 mg/dLHigh LDL: 160-189 mg/dLVery High LDL: greater than or equal to 190 mg/dL HDL Cholesterol 33(L) >40 mg/dL [facility] Comment:Desirable HDL: great er than 40 mg/dL Note: This HDL assay may give artificially low results in patients with liver disease. Blood Venous blood specimen / Unknown 09/05/2024 8:35 AM EST 09/05/2024 11:23 AM EST Critical access hospital LAB BLOOD ORDERABLES Final Resu lt [facility] [address] [place] [address] [phone] * Hepatitis C Antibody with Reflex to HCV, RNA, Quantitative, Real-Time PCR (11/09/2023 3:25 PM EDT) Hepatitis C Antibody Nonreactive Nonreactive [facility] Comment:Antibodies to HCV no t detected; does not exclude early acuteHCV infection. Blood Venous blood specimen / Unknown 11/09/2023 3:25 PM EDT 11/09/2023 3:25 PM EDT [facility] BLOOD ORDERABLES Final Resu lt Performing Organization Address [facility] Co de Phone Number [facility] [address] [place] [phone] * HIV-1/2 Antigen and Antibodies, Fourth Generation, with Reflexes (11/09/2023 3:25 PM EDT) HIV AB/AG Nonreactive Nonreactive [facility] Comment:HIV-1 p24 Ag and/or HIV-1/HIV-2 Ab not detected.A test result that is nonreactive does not exclude thepossibility of exposure to or infection with HIV-1 and/orHIV-2. Nonreactive results in this assay for individualswith prior exposure to HIV-1 and/or HIV-2 may be due toantigen and antibody levels that are below the limit ofdetection of this assay.The M[employer]Kit[employer]gable HIV Ag/Ab Combo assay result andsupplemental assay results should be interpreted inconjunction with the patient's clinical presentation,history and other laboratory results. If the results areinconsistent with clinical evidence, additional testing issuggested to confirm the result. Blood Venous blood specimen / Unknown 11/09/2023 3:25 PM EDT 11/09/2023 3:25 PM ED[address] [facility] BLOOD ORDERABLES Final Resu lt Performing Organization Address [facility]/ZIP Co de Phone Number [facility] [address] [place] [phone] [phone] * Hm Colonoscopy (07/12/2021) Colonoscopy normal Historical Provider HEALTH MAINTENANCE Edited Result - Final from Last 3 Months or Most Recently Relevant to Health Maintenance Insurance [facility] C3 Care Teams Sawyer Cork Slabs Relationship Specialty Start Date End Date Shanda Rg NP [address] [place] [address] PCP - General Family Medicine 06/06/23 Jas Cordero FNP [address] [place] [address] Nurse Practitioner Family Medicine 07/24/23 Aixa Ng Hvac Controls TechnicianCasino Floor Person 09/11/23
--- OUTSIDE RECORDS SUMMARY | 2025-04-29 09:53 | XMS_ITS | Encounter Summary ---
Author Organization [employer] Address [address] [place] [address] 7 [place] [address] Care Team Providers Care In Home Nanny Name Role Phone Jada Erickson RESEARCH ASSISTANT Primary Care Provider Shanda Roman BUSINESS LEADER Primary Care Provider [phone] Jas Cordero RESEARCH ASSISTANT Unavailable Unavailable Reason for Visit * Reason Comments Med Refill Encounter Details Date Type Department Care Team (Late st Contact Info) Description 05/30/2023 Refill [facility] MED[facility]INE [address] [place] [address] Jada Erickson FNP Pain; Cervical radiculopathy; Lumbar [...] television Not at all 06/01/2023 9:23 AM Chiqiuta Krishnan [place] Moving or speaking so slowly [...] Description 07/09/2025 9:00 AM EST Clinical Support [facility] [address] [facility] [place] [address] Cait Velazquez RN documented as of this encounter Visit Diagnoses Diagnosis Pain Generalized pain Cervical radiculopathy Brachial neuritis or radiculitis nos Lumbar radiculopathy Thoracic or lumbosacral neuritis or radiculitis, unspecified documented in this encounter Additional Health Concerns Assessment Noted Time PHQ-9 Depression Total Score: 0 04/13/20 9:39 AM EDT documented as of this encounter Care Teams In Home Nanny Relationship Specialty Start Date End Date Jada Erickson FNP PCP - General Family Medicine 10/27/22 06/05/23 Shanda Rg NP [address] [place] [address] PCP - General Family Medicine 06/06/23 Jas Cordero FNP [address] [place] [address] Nurse Practitioner Family Medicine 07/24/23 Aixa Ng Fingerprint TechnicianJet Wiper 09/11/23 documented as of this encounter
--- OUTSIDE RECORDS SUMMARY | 2025-04-29 09:53 | XMS_ITS | Encounter Summary ---
Author Organization [employer] Address [address] [place] [address] 7 [place] [address] Care Team Providers Care Reach Truck Operator Name Role Phone Jada Erickson COFFEE MACHINE TECHNICIAN Primary Care Provider Shanda Roman TOBACCO CHECKOUT CLERK Primary Care Provider [phone] Jas Cordero COFFEE MACHINE TECHNICIAN Unavailable Unavailable Reason for Visit * Reason Comments Med Refill Encounter Details Date Type Department Care Team (Late st Contact Info) Description 05/30/2023 Refill [facility] [address] [place] [address] Jada Erickson FNP Pain; Cervical radiculopathy; Lumbar [...] Clinical Support [facility] [address] [facility] [place] [address] Cait Velazquez RN documented as of this encounter Visit Diagnoses Diagnosis Pain Generalized pain Cervical radiculopathy Brachial neuritis or radiculitis nos Lumbar radiculopathy Thoracic or lumbosacral neuritis or radiculitis, unspecified documented in this encounter Additional Health Concerns Assessment Noted Time PHQ-9 Depression Total Score: 0 04/13/20 9:39 AM EDT documented as of this encounter Care Teams Reach Truck Operator Relationship Specialty Start Date End Date Jada Erickson FNP PCP - General Family Medicine 10/27/22 06/05/23 Shanda Rg NP [address] [place] [address] PCP - General Family Medicine 06/06/23 Jas Cordero FNP [address] [place] [address] Nurse Practitioner Family Medicine 07/24/23 Aixa Ng Ore SmelterCasing Machine Operator 09/11/23 documented as of this encounter
--- OUTSIDE RECORDS SUMMARY | 2025-04-29 09:53 | XMS_ITS | Clinical Summary ---
Author Organization [facility] Address [address] [place] [address] Care Team Providers Care Impregnating Tank Operator Name Role Phone Unavailable Primary Care Provider [...] that showed slight lumbar dextrocurvature with trace ynax-bs-jjxeq lateral lithesis at L4-L5. Trace anterolithesis at [...] Major depressive disorder wi th psychotic features ([facility]CC) 08/16/2022 Overview (05/09/2024): Last Assessment & Plan: [...] retiring patient will be transferred to new [facility] Psychiatric Prescriber. Pt is aware that those appointments will be via televisit, and that the provider is not an [facility] employee. He gives verbal consent to [...] Type 2 diabetes mellitus wit hout complication ([facility]-HCC) 12/16/2016 Overview (05/09/2024): Education provided re: therapeutic [...] - 19 + 3-dose series) 05/11/2023 04/13/2023 [id number] ( season) 2024 09/02/2022, 2021, 12/07/2020, Additional [...] 11/09/2023 Hepatitis C Screening Completed 11/09/2023 Insurance [place] [employer]
--- OUTSIDE RECORDS SUMMARY | 2025-04-29 09:53 | XMS_ITS | Encounter Summary ---
Author Organization [employer] Address [address] [place] [address] 7 [place] [address] Care Team Providers Care Vocational Placement Specialist Name Role Phone Shanda Rg NP Primary Care Provider [phone] Jas Cordero Unavailable Unavailable Reason for Visit * Reason Comments Med Refill Encounter Details Date Type Department Care Team ([facility] st Contact Info) Description 09/22/2023 Refill [facility] [address] [place] [address] Carrie Shrestha MD [address] [place] [address] Seasonal allergic rhinitis, unspecified trigger Social History [...] 9:00 AM EST Clinical Support [facility] [address] [place] [address] Cait Velazquez RN documented as of this encounter Visit Diagnoses Diagnosis Seasonal allergic rhinitis, unspecified trigger documented in this encounter Additional Health Concerns Assessment Noted Time PHQ-9 Depression Total Score: 4 08/01/20 23 11:20 AM EST documented as of this encounter Care Teams Vocational Placement Specialist Relationship Specialty Start Date End Date Shanda Rg NP [address] [place] [address] PCP - General Family Medicine 06/06/23 Jas Cordero FNP [address] [place] [phone] Nurse Practitioner Family Medicine 07/24/23 Aixa Ng Fire Safety InspectorAthletic Trainer 09/11/23 documented as of this encounter
--- OUTSIDE RECORDS SUMMARY | 2025-04-29 09:53 | XMS_ITS | Encounter Summary ---
Author Organization [employer] Address [address] [place] [address] 7 [place] [address] Care Team Providers Care Us Marketing Director Name Role Phone Shanda Rg NP Primary Care Provider [phone] Jas Cordero Unavailable Unavailable Reason for Visit * Reason Comments Med Refill Encounter Details Date Type Department Care Team (Late st Contact Info) Description 09/09/2023 Refill [facility] MED[facility]INE [address] [place] [address] NameJerardo MD [address] [place] [address] Radiculopathy, cervical region Social History Tobacco Use [...] Description 07/09/2025 9:00 AM EST Clinical Support [facility] [address] [place] [address] Cait Velazquez RN documented as of this encounter Visit Diagnoses Diagnosis Radiculopathy, cervical region Brachial neuritis or radiculitis nos documented in this encounter Additional Health Concerns Assessment Noted Time PHQ-9 Depression Total Score: 4 08/01/20 11:20 AM EST documented as of this encounter Care Teams Us Marketing Director Relationship Specialty Start Date End Date Shanda Rg NP [address] [place] [address] PCP - General Family Medicine 06/06/23 Jas Cordero FNP [address] [place] [address] Nurse Practitioner Family Medicine 07/24/23 Aixa Ng Blood Tester FowlManager Front 09/11/23 documented as of this encounter
--- OUTSIDE RECORDS SUMMARY | 2025-04-29 09:53 | XMS_ITS | Encounter Summary ---
Author Organization [employer] Address [address] [place] [address] [address] [place] [address] Care Team Providers Care Director Of Land Name Role Phone Shanda Rg NP Primary Care Provider [phone] Jas Cordero Unavailable Unavailable Reason for Visit * Reason Onset Date Comments Med Refill 01/27/2025 Encounter Details Date Type Department Care Team (Late st Contact Info) Description 01/27/2025 Telephone [facility] MEDICINE [address] [place] [address] Shanda Rg NP [address] [place] [address] Med Refill Social History Tobacco Use Types [...] 50 MG tablet To be sent to: [facility] - [place], [place] - [address] [place] [address] documented in this encounter Plan of Treatment Upcoming Encounters Date Type Department Care Team ([facility] st Contact Info) Description 07/09/2025 9:00 AM EST Clinical Support [facility] MEDICINE [address] [place] [address] Cait Velazquez RN documented as of this encounter Visit Diagnoses Not on filedocumented in this encounter Additional Health Concerns Assessment Noted Time PHQ-9 Depression Total Score: 23 025 2:34 PM EST documented as of this encounter Care Teams Director Of Land Relationship Specialty Start Date End Date Shanda Rg NP [address] [place] [address] PCP - General Family Medicine 06/06/23 Jas Cordero FNP [address] [place] [address] Nurse Practitioner Family Medicine 07/24/23 Aixa Ng Branch Logistics SupervisorTuna Purse Seiner 09/11/23 documented as of this encounter
--- OUTSIDE RECORDS SUMMARY | 2025-04-29 09:54 | XMS_ITS | Encounter Summary ---
Author Organization [facility] Address [address] [place] [phone] Phone Care Team Providers Care Executive Administrative Asst Name Role Phone Pcp, Unknown Primary Care Provider Unavailabl e Encounter Details Date Type Department Care Team (Late st Contact Info) Description 08/05/2020 Procedure [facility] [address] [place] [address] [place] [address] Social History Tobacco Use Types Packs/Day Years [...] on filedocumented in this encounter Care Teams Executive Administrative Asst Relationship Specialty Start Date End Date Pcp, Unknown PCP - General 07/06/17 documented as of this encounter Additional Source Comments The information contained in this document represents components of the legal health record. It is not the complete legal health record.[facility]
--- OUTSIDE RECORDS SUMMARY | 2025-04-29 09:54 | XMS_ITS | Encounter Summary ---
Author Organization [employer] Address [address] [place] [address] 7 [place] [address] Care Team Providers Care Auto Design Checker Name Role Phone Shanda Rg NP Primary Care Provider [phone] Jas Cordero Unavailable Unavailable Reason for Visit * Reason Onset Date Comments Med Refill 02/15/2024 Encounter Details Date Type Department Care Team (Late st Contact Info) Description 02/15/2024 Telephone [facility] [address] [place] [address] Shanda Rg NP [address] [place], [place] [phone] Med Refill Social History Tobacco Use Types [...] 10:43 AM EDT Medication was sent to [facility] on 01/30/24 #30 with 5 refills. * Telephone Encounter - Susan Mendoza - 02/15/2024 10:39 AM EDT TC from pt requesting medication refill. Medications needing refill : zolpidem (Ambien) 10 MG tablet To be sent to: [facility] - [place], [place] - [address] [facility] documented in this encounter Plan of Treatment Upcoming Encounters Date Type Department Care Team (Late st Contact Info) Description 07/09/2025 9:00 AM EST Clinical Support [facility] [address] [place] [address] Cait Velazquez, RN documented as of this encounter Visit Diagnoses Not on filedocumented in this encounter Additional Health Concerns Assessment Noted Time PHQ-9 Depression Total Score: 9 01/30/20 24 9:09 AM EDT documented as of this encounter Care Teams Auto Design Checker Relationship Specialty Start Date End Date Shanda Rg NP [address] [place] [address] PCP - General Family Medicine 06/06/23 Jas Cordero FNP [address] [place] [address] Nurse Practitioner Family Medicine 07/24/23 Aixa Ng Histology ManagerOre Miner Blasting 09/11/23 documented as of this encounter
--- OUTSIDE RECORDS SUMMARY | 2025-04-29 09:54 | XMS_ITS | Clinical Summary ---
Author Organization [facility] Address [address] [place] [address] [place] [address] Phone Care Team Providers Care Inside Sales Engineer Name Role Phone Pcp, Unknown Primary Care [...] file Medical Devices Not on file Insurance [facility] CAREPLUS Member Subscriber Plan / Payer (Ef fective 2017-Present) Name:Davidson Gillespie Relation to Subscriber:Self Name:Davidson Gillespie Payer ID:[id number] Group ID:[id number] Type:Medicaid Address: [address] [facility] C3 ACO [facility] CARE[employer] Member Subscriber Plan / Payer (Ef fective 2017-Present) Name:Davidson Gillespie Relation to Subscriber:Self Name:Davidson Gillespie Payer ID:[id number] Group ID:[id number] Type:Medicaid Address: [address] C3 ACO [facility] [employer]ARE[employer] Member Subscriber Plan / Payer (Ef fective 2017-Present) Name:Davidson Gillespie Relation to Subscriber:Self Name:Davidson Gillespie Payer ID:[id number] Group ID:[id number] Type:Medicaid Address: [address] C3 ACO [facility] [employer]ARE[employer] Member Subscriber Plan / Payer (Ef fective 2017-Present) Name:Davidson Gillespie Relation to Subscriber:Self Name:Davidson Gillespie Payer ID:[id number] Group ID:[id number] Type:Medicaid Address: [address] C3 ACO [facility] CARE[employer] Member Subscriber Plan / Payer (Ef fective 2017-Present) Name:Davidson Gillespie Relation to Subscriber:Self Name:Davidson Gillespie Payer ID:[id number] Group ID:[id number] Type:Medicaid Address: [address] [place] [address] [address] CAREPLUS Member Subscriber Plan / Payer (Ef fective 2017-Present) Name:Davidson Gillespie Relation to Subscriber:Self Name:Davidson Gillespie Payer ID:[id number] Group ID:[id number] Type:Medicaid Address: [address] C3 ACO [facility] [employer]ARE[employer] Member Subscriber Plan / Payer (Ef fective 2017-Present) Name:Davidson Gillespie Relation to Subscriber:Self Name:Davidson Gillespie Payer ID:[id number] Group ID:[id number] Type:Medicaid Address: [address] [place], [place] [address]PLUS Member Subscriber Plan / Payer (Ef fective 2017-Present) Name:Davidson Gillespie Relation to Subscriber:Self Name:Davidson Gillespie Payer ID:[id number] Group ID:[id number] Type:Medicaid Address: [address] C3 ACO [facility] [employer] C3 ACO Care Teams Inside Sales Engineer Relationship Specialty Start Date End Date Pcp, Unknown PCP - General 07/06/17 Additional Source Comments The information contained in this document represents components of the legal health record. It is not the complete legal health record.[facility]
--- OUTSIDE RECORDS SUMMARY | 2025-04-29 09:54 | XMS_ITS | Encounter Summary ---
Author Organization [employer] Address [address] [place] [address] 7 [place] [address] Care Team Providers Care Sales Account Representative Name Role Phone Dre Jada Huntley COORDINATOR CARDIOPULMONARY SERVICES Primary Care Provider Marissa Shanda Mensah NP Primary Care Provider [phone] Jas Cordero Unavailable Unavailable Reason for Visit * Reason Comments Med Refill Encounter Details Date Type Department Care Team (Late st Contact Info) Description 10/31/2022 Refill [facility] MEDICINE [address] [place] [address] Jas Cordero FNP Major depressive disorder with [...] 11/02/2022 11:52 AM EST FYI, Pt had TELECOMMUNICATIONS FACILITY EXAMINER RV today. Urine/Pill count WNL. Bp 152/108, stated he had taken his blood pressure medication this morning. documented in this encounter Plan of Treatment Upcoming Encounters Date Type Department Care Team (Late st Contact Info) Description 07/09/2025 9:00 AM EST Clinical Support [facility] MEDICINE [address] [place] [address] Cait Velazquez, LUCY documented as of this encounter Visit Diagnoses Diagnosis Major depressive disorder with psychotic features (CMS/HCC) documented in this encounter Additional Health Concerns Assessment Noted Time PHQ-9 Depression Total Score: 9 09/27/19 9:22 AM EST documented as of this encounter Care Teams Sales Account Representative Relationship Specialty Start Date End Date Jada Erickson FNP PCP - General Family Medicine 10/27/22 06/05/23 Shanda Rg NP [address] [place] [address] PCP - General Family Medicine 06/06/23 Jas Cordero FNP [address] [place] [address] Nurse Practitioner Family Medicine 07/24/23 Aixa Ng Hr AdministratorIntellectual Property Legal Assistant 09/11/23 documented as of this encounter
--- OUTSIDE RECORDS SUMMARY | 2025-04-29 09:54 | XMS_ITS | Encounter Summary ---
Author Organization [facility] Address [address] [facility] [address] [place] [address] Phone Care Team Providers Care Applied Marine Physics Professor Name Role Phone Pcp, Unknown Primary Care Provider Unavailabl e Encounter Details Date Type Department Care Team (Late st Contact Info) Description 07/06/2017 Ancillary Orders [facility] [address] [place] [address] [place] [address] Darius Johnson DO [address] [place] [address] Palpitations Social History Tobacco Use Types Packs/Day [...] Palpitations documented in this encounter Care Teams Applied Marine Physics Professor Relationship Specialty Start Date End Date Pcp, Unknown PCP - General 07/06/17 documented as of this encounter Additional Source Comments The information contained in this document represents components of the legal health record. It is not the complete legal health record.[facility]
--- OUTSIDE RECORDS SUMMARY | 2025-04-29 09:54 | XMS_ITS | Encounter Summary ---
Author Organization [facility] Address [address] [place] [address] Phone Care Team Providers Care Supervisor Model Making Name Role Phone Pcp, Unknown Primary Care Provider Unavailabl e Encounter Details Date Type Department Care Team (Late st Contact Info) Description 08/05/2020 Ancillary Orders [facility] [address] [place] [address] [place] [address] Darius Johnson DO [address] [place] [address] Palpitations Social History Tobacco Use Types Packs/Day [...] after the event marker. Procedure Note Laurent Erwni MD - 08/05/2020 48-hour monitor: The baseline [...] Palpitations documented in this encounter Care Teams Supervisor Model Making Relationship Specialty Start Date End Date Pcp, Unknown PCP - General 07/06/17 documented as of this encounter Additional Source Comments The information contained in this document represents components of the legal health record. It is not the complete legal health record.[facility]
--- OUTSIDE RECORDS SUMMARY | 2025-04-29 09:54 | XMS_ITS | Encounter Summary ---
Author Organization [employer] [facility] Address [address] [place] [address] [address] [address] Care Team Providers Care Manager Part Name Role Phone Carmen Faust MD Primary Care Provider Cali Lundberg Primary Care Provider Jada Gomez BIN WORKER Primary Care Provider Shanda Roman NP Primary Care Provider [phone] Jas Cordero Unavailable Unavailable Reason for Visit * Reason Comments Med Refill Encounter Details Date Type Department Care Team (Late st Contact Info) Description 09/01/[address] [facility] MED[facility] [address] [place] [address] Jas Cordero FNP Social History Tobacco Use [...] Description 07/09/2025 9:00 AM EST Clinical Support [facility] [address] [place] [address] Caroline, Cait, RN documented as of this encounter Visit Diagnoses Not on filedocumented in this encounter Additional Health Concerns Assessment Noted Time PHQ-9 Depression Total Score: 12 022 9:34 AM EST documented as of this encounter Care Teams Manager Part Relationship Specialty Start Date End Date Carmen Faust MD PCP - General Family Medicine 02/17/20 09/20/22 Cali Steward FNP PCP - General Family Medicine 09/21/22 10/26/22 Jada Erickson FNP PCP - General Family Medicine 10/27/22 06/05/23 Shanda Rg NP [address] [place] [address] PCP - General Family Medicine 06/06/23 Jas Cordero FNP [address] [place] [address] Nurse Practitioner Family Medicine 07/24/23 Aixa Ng Metal MoulderHead Shipper 09/11/23 documented as of this encounter
--- OUTSIDE RECORDS SUMMARY | 2025-04-29 09:54 | XMS_ITS | Encounter Summary ---
Author Organization [employer] [facility] Address [address] [place] [address] [address] [address] Care Team Providers Care Singeing Torch Operator Name Role Phone Carmen Faust MD Primary Care Provider Cali Lundberg Primary Care Provider Jada Gomez EMPLOYEE BENEFITS INSURANCE AGENT Primary Care Provider Shanda Roman NP Primary Care Provider [phone] Jas Cordero EMPLOYEE BENEFITS INSURANCE AGENT Unavailable Unavailable Encounter Details Date Type Department Care Team (Latest Contact Info) Description 07/15/2019 Abstract [facility] CONVERSIONS Dental, Provider, DDS Social History [...] 07/09/2025 9:00 AM EST Clinical Support [facility] MEDICINE [address] [place] [address] Cait Velazquez, LUCY documented as of this encounter Visit Diagnoses Not on filedocumented in this encounter Care Teams Singeing Torch Operator Relationship Specialty Start Date End Date Carmen Faust MD PCP - General Family Medicine 02/17/20 09/20/22 Cali Steward FNP PCP - General Family Medicine 09/21/22 10/26/22 Jada Erickson FNP PCP - General Family Medicine 10/27/22 06/05/23 Shanda Rg NP [address] [place] [address] PCP - General Family Medicine 06/06/23 Jas Cordero FNP [address] [place] [address] Nurse Practitioner Family Medicine 07/24/23 Aixa Ng Nursing StudentPassport Support Manager 09/11/23 documented as of this encounter
--- OUTSIDE RECORDS SUMMARY | 2025-04-29 09:54 | XMS_ITS | Encounter Summary ---
Author Organization [employer] [facility] Address [address] [place] [address] [place], [place] [address] Care Team Providers Care Foreign Agent Name Role Phone Carmen Faust MD Primary Care Provider Cali Lundberg HIDE TRIMMER Primary Care Provider Jada Gomez HIDE TRIMMER Primary Care Provider Marissa Shanda Mensah NP Primary Care Provider [phone] Jas Cordero HIDE TRIMMER Unavailable Unavailable Encounter Details Date Type Department Care Team (Late st Contact Info) Description 08/05/2022 Orders Only [facility] MEDICINE [address] [place] [address] Matthew Dunbar MD [address] [place] [address] Social History Tobacco Use Types Packs/Day Years [...] Description 07/09/2025 9:00 AM EST Clinical Support [facility] [address] [place] [address] Cait Velazquez RN documented as of this encounter Visit Diagnoses Not on filedocumented in this encounter Care Teams Foreign Agent Relationship Specialty Start Date End Date Carmen Faust MD PCP - General Family Medicine 02/17/20 09/20/22 Cali Steward FNP PCP - General Family Medicine 09/21/22 10/26/22 Jada Erickson FNP PCP - General Family Medicine 10/27/22 06/05/23 Shanda Rg NP [address] [place] [address] PCP - General Family Medicine 06/06/23 Jas Cordero FNP [address] [place] [address] Nurse Practitioner Family Medicine 07/24/23 Aixa Ng Special Deputy SheriffHedis Abstractor 09/11/23 documented as of this encounter
[2025-04-29 11:07] LABS: Folate 12.9 ng/mL (> or = 4.0); Vitamin B12 564 pg/mL (200-900)
== END 2025-04-29 09:03 | disposition home or self-care (01) ==
LOC: HO.LAB 09:02
PROVIDERS: PCP Nurse Practitioner; Visit Provider Nurse Practitioner Family
DX: E53.8 Deficiency of other specified B group vitamins (principal)
CPT/HCPCS: 36415; 82607; 82746; 83090; 83921

== ENCOUNTER 2025-05-15 12:44 | Outpatient (AMB) | payer MEDICAID, SELFPAY ==
--- NOTE | 2025-05-15 13:06 | A.OFFVIS_ITS ---
Vital Signs 05/15/25 13:08 Weight 202 lb BP 120/80 Blood Pressure Location Rt brachial Position Sitting Pulse 80 Pulse Source Pulse Oximeter Pulse Oximetry (%) 94 Intake Visit Reasons: 6 mnts f/u Intake Note: Patient presents follow up [facility] Graduate Intern Required: No Graduate Intern Name: Patient presents follow up [facility] Accompanied by: Self / Same As Patient Allergies No Known Allergies (No Known Allergies*) Allergy (Verified 11/27/24 14:23) HPI Comments Details: 59-year-old male presents for follow-up of [facility] and RLS. He reports he has been trying to eat healthier, drinking more water, and avoiding drinking sodas, as when he is stressed, he can drink up to 6 diet Cokes in a day. Following the last visit, blood work was notable for a low-normal B12 level with a mildly elevated homocysteine level. Thus, the patient was started on vitamin B12, 500 mcg, orally. Daily, the patient states that it has been beneficial and has improved his daytime energy levels. A request was made to replace the patient's CPAP machine; however, unfortunately, his insurance had lapsed, and during that time, he was given a temporary insurance that would not cover DME. The patient continues to say he cannot sleep without his CPAP machine; however, he remains concerned because he is using a Vidya machine, which has been recalled, and cannot transfer Pap therapy compliance data. He states he has some restlessness, which he attributes to his musculoskeletal issues. [facility] Medical History Low vitamin B12 level Internal hemorrhoid Tubular adenoma Cardiomyopathy Elevated cholesterol Sleep apnea Diabetes HTN (hypertension) Radiculopathy, lumbar region Disc degeneration, lumbar Spondylosis of lumbar spine Spondylosis of cervical spine Surgical History (Updated 11/27/24 @ 14:44 by YUE Welsh) S/P skin biopsy History of hernia repair Hx of cardiac catheterization H/O colonoscopy Hx of knee surgery Hernia Family History Father HTN (hypertension) Diabetes Mother Diabetes HTN (hypertension) Heart disease Social History Household Members: Family Alcohol intake: former Patient Tobacco Use Status: Former Tobacco user Tobacco use type: Cigarette 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 Physical Exam Vital Signs: Last Vital Signs Pulse 80 05/15/25 13:08 BP 120/80 05/15/25 13:08 Pulse Ox 94 05/15/25 13:08 Const General: cooperative and no acute distress Orientation/consciousness: patient oriented x3 Resp Effort & Inspection: normal respiratory effort and able to speak in complete sentences Neuro Other: Slow to stand, antalgic gait, steady with cane General: patient oriented x3 Cranial nerves: Yes CN's II-XII intact bilaterally Cognition (Neuro): normal cognition Psych Appearance: grossly normal Mental Status: mental status grossly normal Speech and movement: Normal speech and movement present Affect: normal affect Attitude: cooperative Assessment & Plan Assessment & Plan (1) Restless legs syndrome: Code(s): G25.81 - Restless legs syndrome Category: Medical (2) Periodic limb movements of sleep: Code(s): G47.61 - Periodic limb movement disorder Category: Medical (3) Obstructive sleep apnea: Code(s): G47.33 - Obstructive sleep apnea (adult) (pediatric) Category: Medical Plan Reviewed interval labs: ?In October, showed low vitamin B12 level with elevated homocystine, which has improved since starting B12 supplement * Continue vitamin B12 500 mcg p.o. daily We will request a new PAP machine with remote compliance capabilities, as patient's machine is a Irwin PAP machine which is over 6 years old and does not have remote compliance capabilities. * In the meantime, continue to use APAP 5-20 cm H2O nightly with a goal of greater than 4 hours nightly, as patient is experiencing good clinical effect from use. * Clean and change PAP supplies routinely, including filters, masks, tubing, and water reservoir. * Use distilled water in PAP water resorvoir. * We will follow-up upon review of above and plan for you to follow-up in clinic in 6 months or sooner as needed. Continue to monitor restless leg symptoms Encouraged to continue to optimize his cardiovascular and metabolic risk factors, through lifestyle choices such as eating well rounded healthy diet, limiting simple sugars, and engaging in regular physical activity as tolerated Will follow-up upon review of above and patient to follow-up in clinic in 6 months or sooner prn. Coding Level of Care Code Est Pt Level 3 (88391) Diagnoses Restless legs syndrome G25.81 Periodic limb movements of sleep G47.61 Obstructive sleep apnea G47.33
[2025-05-15 13:08] VITALS: BP 120/80; PULSE 80; O2SAT 94
--- OUTSIDE RECORDS SUMMARY | 2025-05-15 14:48 | XMS_ITS | Encounter Summary ---
Author Organization [employer] Address [address] [place] [address] 7 [place] [address] Care Team Providers Care Shell Reprint Operator Name Role Phone Shanda Rg NP Primary Care Provider [phone] Jas Cordero Unavailable Unavailable Reason for Visit * Reason Comments Med Refill Encounter Details Date Type Department Care Team (Late st Contact Info) Description 09/09/2023 Refill [facility] MEDICINE [address] [place] [address] NameeJrardo MD [address] [place] [address] Radiculopathy, cervical region Social History Tobacco Use [...] Description 07/09/2025 9:00 AM EST Clinical Support [facility] MED[facility]INE [address] [place] [address] Cait Velazquez RN documented as of this encounter Visit Diagnoses Diagnosis Radiculopathy, cervical region Brachial neuritis or radiculitis nos documented in this encounter Additional Health Concerns Assessment Noted Time PHQ-9 Depression Total Score: 4 08/01/20 11:20 AM EST documented as of this encounter Care Teams Shell Reprint Operator Relationship Specialty Start Date End Date Shanda Rg NP [address] [place] [address] PCP - General Family Medicine 06/06/23 Jas Cordero FNP [address] [place] [address] Nurse Practitioner Family Medicine 07/24/23 Aixa Ng Offshore DiverEgg Processor 09/11/23 documented as of this encounter
--- OUTSIDE RECORDS SUMMARY | 2025-05-15 14:48 | XMS_ITS | Encounter Summary ---
Author Organization [employer] Address [address] [place] [address] 7 [place] [address] Care Team Providers Care Before School Babysitter Name Role Phone Jada Erickson CONSTRUCTION CONTROLLER Primary Care Provider Shanda Roman CHIMNEY REPAIRER Primary Care Provider [phone] Jas Cordero CONSTRUCTION CONTROLLER Unavailable Unavailable Reason for Visit * Reason Comments Med Refill Encounter Details Date Type Department Care Team (Late st Contact Info) Description 05/30/2023 Refill [facility] MEDICINE [address] [place] [address] Jada Erickson FNP Pain; Cervical radiculopathy; Lumbar [...] 07/09/2025 9:00 AM EST Clinical Support [facility] [place] [address] Cait Velazquez RN documented as of this encounter Visit Diagnoses Diagnosis Pain Generalized pain Cervical radiculopathy Brachial neuritis or radiculitis nos Lumbar radiculopathy Thoracic or lumbosacral neuritis or radiculitis, unspecified documented in this encounter Additional Health Concerns Assessment Noted Time PHQ-9 Depression Total Score: 0 04/13/20 9:39 AM EDT documented as of this encounter Care Teams Before School Babysitter Relationship Specialty Start Date End Date Jada Erickson FNP PCP - General Family Medicine 10/27/22 06/05/23 Shanda Rg NP [address] [place] [address] PCP - General Family Medicine 06/06/23 Jas Cordero FNP [address] [place] [address] Nurse Practitioner Family Medicine 07/24/[address] CleanerClinical Lab Scientist 09/11/23 documented as of this encounter
--- OUTSIDE RECORDS SUMMARY | 2025-05-15 14:48 | XMS_ITS | Encounter Summary ---
Author Organization [employer] Address [address] [place] [address] 7 [place] [address] Care Team Providers Care Steel Tester Name Role Phone Jada Erickson MEDIA RELATIONS MANAGER Primary Care Provider Shanda Roman ARMORED CAR GUARD Primary Care Provider [phone] Jas Cordero MEDIA RELATIONS MANAGER Unavailable Unavailable Reason for Visit * Reason Comments Med Refill Encounter Details Date Type Department Care Team (Late st Contact Info) Description 05/30/2023 Refill [facility] MEDICINE [address] [place] [address] Jada Erickson FNP Pain; Cervical radiculopathy; Lumbar [...] Description 07/09/2025 9:00 AM EST Clinical Support [facility] 230 [facility] [place] [address] Cait Velazquez RN documented as of this encounter Visit Diagnoses Diagnosis Pain Generalized pain Cervical radiculopathy Brachial neuritis or radiculitis nos Lumbar radiculopathy Thoracic or lumbosacral neuritis or radiculitis, unspecified documented in this encounter Additional Health Concerns Assessment Noted Time PHQ-9 Depression Total Score: 0 04/13/20 9:39 AM EDT documented as of this encounter Care Teams Steel Tester Relationship Specialty Start Date End Date Jada Erickson FNP PCP - General Family Medicine 10/27/22 06/05/23 Shanda Rg NP [address] [place] [address] PCP - General Family Medicine 06/06/23 Jas Cordero FNP [address] [place] [address] Nurse Practitioner Family Medicine 07/24/23 Aixa Ng Engineering AidManager Of Radiology 09/11/23 documented as of this encounter
--- OUTSIDE RECORDS SUMMARY | 2025-05-15 14:48 | XMS_ITS | Encounter Summary ---
Author Organization [employer] Address [address] [place] [address] [address] [place] [address] Care Team Providers Care Laborer Tan House Name Role Phone Shanda Rg NP Primary Care Provider [phone] Jas Cordero Unavailable Unavailable Reason for Visit * Reason Comments Med Refill Encounter Details Date Type Department Care Team ([facility] st Contact Info) Description 06/08/2023 Refill [facility] MEDICINE [address] [place] [address] Jada Erickson FNP Seasonal allergic rhinitis, unspecified [...] Clinical Support [facility] MEDICINE [address] [place] [address] Cait Velazquez RN documented as of this encounter Visit Diagnoses Diagnosis Seasonal allergic rhinitis, unspecified trigger documented in this encounter Additional Health Concerns Assessment Noted Time PHQ-9 Depression Total Score: 10 023 9:23 AM EDT documented as of this encounter Care Teams Laborer Tan House Relationship Specialty Start Date End Date Shanda Rg NP [address] [place] [address] PCP - General Family Medicine 06/06/23 Jas Cordero FNP [address] [place] [address] Nurse Practitioner Family Medicine 07/24/23 Aixa Ng Cleaner FurnitureCorrective Therapy Aide Teacher 09/11/23 documented as of this encounter
--- OUTSIDE RECORDS SUMMARY | 2025-05-15 14:48 | XMS_ITS | Encounter Summary ---
Author Organization [facility] Address [address] [place] [address] 7 [place] [address] Care Team Providers Care Hoisting Pile Driving Engineer Name Role Phone Shanda Rg NP Primary Care Provider [phone] Jas Cordero Unavailable Unavailable Reason for Visit * Reason Comments Med Refill Encounter Details Date Type Department Care Team (Late st Contact Info) Description 08/01/2023 Refill [facility] [address] [place] [address] Lianet Mae FNP [address] [place] [address] Pain; Cervical radiculopathy; Lumbar radiculopathy Social History [...] Not at all 08/01/2023 11:20 AM [place] Forebs [place] Moving or speaking so slowly that [...] EST Clinical Support [facility] [address] [place] [address] Cait Velazquez RN documented as of this encounter Visit Diagnoses Diagnosis Pain Generalized pain Cervical radiculopathy Brachial neuritis or radiculitis nos Lumbar radiculopathy Thoracic or lumbosacral neuritis or radiculitis, unspecified documented in this encounter Additional Health Concerns Assessment Noted Time PHQ-9 Depression Total Score: 4 08/01/20 23 11:20 AM EST documented as of this encounter Care Teams Hoisting Pile Driving Engineer Relationship Specialty Start Date End Date Shanda Rg NP [address] [place] [address] PCP - General Family Medicine 06/06/23 Jas Cordero FNP 230 [place] [address] Nurse Practitioner Family Medicine 07/24/23 Aixa Ng Watch Repairer ApprenticeGroup Tester 09/11/23 documented as of this encounter
--- OUTSIDE RECORDS SUMMARY | 2025-05-15 14:48 | XMS_ITS | Encounter Summary ---
Author Organization [employer] Address [address] [place] [address] 7 [place] [address] Care Team Providers Care Associate Oracle Retail Name Role Phone Shanda Rg NP Primary Care Provider [phone] Jas Cordero Unavailable Unavailable Reason for Visit * Reason Comments Med Refill Encounter Details Date Type Department Care Team ([facility] st Contact Info) Description 09/22/2023 Refill [facility] [address] [place] [address] Carrie Shrestha MD [address] [place] [address] Seasonal allergic rhinitis, unspecified trigger Social History [...] EST Clinical Support [facility] [address] [place] [address] Cait Velazquez RN documented as of this encounter Visit Diagnoses Diagnosis Seasonal allergic rhinitis, unspecified trigger documented in this encounter Additional Health Concerns Assessment Noted Time PHQ-9 Depression Total Score: 4 08/01/20 23 11:20 AM EST documented as of this encounter Care Teams Associate Oracle Retail Relationship Specialty Start Date End Date Shanda Rg NP [address] [place] [address] PCP - General Family Medicine 06/06/23 Jas Cordero FNP [address] [place] [address] Nurse Practitioner Family Medicine 07/24/23 Aixa Ng Ivory CarverIndustrial Chemicals Supervisor 09/11/23 documented as of this encounter
--- OUTSIDE RECORDS SUMMARY | 2025-05-15 14:48 | XMS_ITS | Encounter Summary ---
Author Organization [employer] Address [address] [place] [address] 7 [place] [address] Care Team Providers Care Insurance Follow Up Rep Name Role Phone Shanda Rg NP Primary Care Provider [phone] Jas Cordero Unavailable Unavailable Reason for Visit * Reason Onset Date Comments Appointment Request 09/25/2023 Encounter Details Date Type Department Care Team ([facility] st Contact Info) Description 09/25/2023 Telephone [facility] [address] [place] [address] Shanda Rg NP [address] [place], [place] [phone] Appointment Request Social History Tobacco Use Types [...] regarding existing conditions. Please contact pt at [phone]. Northern Irish speaking documented in this encounter Plan of Treatment Upcoming Encounters Date Type Department Care Team (Late st Contact Info) Description 07/09/2025 9:00 AM EST Clinical Support [facility] [address] [place] [address] Cait Velazquez RN documented as of this encounter Visit Diagnoses Not on filedocumented in this encounter Additional Health Concerns Assessment Noted Time PHQ-9 Depression Total Score: 4 08/01/20 11:20 AM EST documented as of this encounter Care Teams Insurance Follow Up Rep Relationship Specialty Start Date End Date Shanda Rg NP [address] [place] [address] PCP - General Family Medicine 06/06/23 Jas Cordero FNP [address] [place] [address] Nurse Practitioner Family Medicine 07/24/23 Aixa Ng Cold Roll InspectorTransit Man 09/11/23 documented as of this encounter
--- OUTSIDE RECORDS SUMMARY | 2025-05-15 14:49 | XMS_ITS | Encounter Summary ---
Author Organization [facility] Address [address] [place] [address] Phone Care Team Providers Care Code Enforcement Officer Name Role Phone Pcp, Unknown Primary Care Provider Unavailabl e Encounter Details Date Type Department Care Team (Late st Contact Info) Description 08/05/2020 Ancillary Orders [facility] [address] [place] [address] [place] [address] Darius Johnson DO [address] [place] [address] Palpitations Social History Tobacco Use Types Packs/Day [...] Palpitations documented in this encounter Care Teams Code Enforcement Officer Relationship Specialty Start Date End Date Pcp, Unknown PCP - General 07/06/17 documented as of this encounter Additional Source Comments The information contained in this document represents components of the legal health record. It is not the complete legal health record.[facility]
--- OUTSIDE RECORDS SUMMARY | 2025-05-15 14:49 | XMS_ITS | Encounter Summary ---
Author Organization [employer] Address [address] [place] [address] 7 [place] [address] Care Team Providers Care Exploration Driller Name Role Phone Dre Jada Huntley CONVEYOR WEIGHER OPERATOR Primary Care Provider Marissa Shanda Mensah NP Primary Care Provider [phone] Jas Cordero Unavailable Unavailable Reason for Visit * Reason Comments Med Refill Encounter Details Date Type Department Care Team (Late st Contact Info) Description 10/31/2022 Refill [facility] [address] [place] [address] Jas Cordero FNP Major depressive disorder with [...] 11/02/2022 11:52 AM EST FYI, Pt had DATA ENTRY COORDINATOR RV today. Urine/Pill count WNL. Bp 152/108, stated he had taken his blood pressure medication this morning. documented in this encounter Plan of Treatment Upcoming Encounters Date Type Department Care Team (Late st Contact Info) Description 07/09/2025 9:00 AM EST Clinical Support [facility] [address] [place] [address] Cait Velazquez, LUCY documented as of this encounter Visit Diagnoses Diagnosis Major depressive disorder with psychotic features (CMS/HCC) documented in this encounter Additional Health Concerns Assessment Noted Time PHQ-9 Depression Total Score: 9 09/27/19 9:22 AM EST documented as of this encounter Care Teams Exploration Driller Relationship Specialty Start Date End Date Jada Erickson FNP PCP - General Family Medicine 10/27/22 06/05/23 Shanda Rg NP [address] [place] [address] PCP - General Family Medicine 06/06/23 Jas Cordero FNP [address] [place] [address] Nurse Practitioner Family Medicine 07/24/23 Aixa Ng Occupational Safety And Health ManagerSound Engineer 09/11/23 documented as of this encounter
--- OUTSIDE RECORDS SUMMARY | 2025-05-15 14:49 | XMS_ITS | Encounter Summary ---
Author Organization [employer] [facility] Address [address] [place] [address] [place] [address] Care Team Providers Care Slot Floorman Name Role Phone Carmen Faust MD Primary Care Provider Cali Lundberg Primary Care Provider Jada Gomez REPORT CHECKER Primary Care Provider Shanda Roman NP Primary Care Provider [phone] Jas Cordero REPORT CHECKER Unavailable Unavailable Encounter Details Date Type Department Care Team (Latest Contact Info) Description 07/15/2019 Abstract [facility] CONVERSIONS Dental, Provider, DDS Social [...] Description 07/09/2025 9:00 AM EST Clinical Support [facility]ICINE [address] [place] [address] Cait Velazquez, LUCY documented as of this encounter Visit Diagnoses Not on filedocumented in this encounter Care Teams Slot Floorman Relationship Specialty Start Date End Date Carmen Faust MD PCP - General Family Medicine 02/17/20 09/20/22 Cali Steward FNP PCP - General Family Medicine 09/21/22 10/26/22 Jada Erickson FNP PCP - General Family Medicine 10/27/22 06/05/23 Shanda Rg NP [address] [place] [address] PCP - General Family Medicine 06/06/23 Jas Cordero FNP [address] [place] [address] Nurse Practitioner Family Medicine 07/24/23 Aixa Ng Childhood Development TeacherCustomer Engineering Specialist 09/11/23 documented as of this encounter
--- OUTSIDE RECORDS SUMMARY | 2025-05-15 14:49 | XMS_ITS | Encounter Summary ---
Author Organization [employer] Address [address] [place] [address] 7 [place] [address] Care Team Providers Care Restaurant Service Manager Name Role Phone Shanda Rg NP Primary Care Provider [phone] Jas Cordero Unavailable Unavailable Reason for Visit * Reason Onset Date Comments Med Refill 03/25/2024 Encounter Details Date Type Department Care Team (Late st Contact Info) Description 03/25/2024 Telephone [facility] MED[facility]INE [address] [place] [address] Shanda Rg NP [address] [place], [place] [phone] Med Refill Social History Tobacco Use Types [...] qty - 112 for 28 dayssupply. From [facility] pharmacy. * Telephone Encounter - Jean Rosario - 03/25/2024 1:38 PM EDT TC from pt requesting medication refill. Medications needing refill: traMADol (Ultram) 50 MG tablet To be sent to: [facility] Pharmacy documented in this encounter Plan of Treatment Upcoming Encounters Date Type Department Care Team (Late st Contact Info) Description 07/09/2025 9:00 AM EST Clinical Support [facility] MEDICINE [address] [place] [address] Cait Velazquez RN documented as of this encounter Visit Diagnoses Not on filedocumented in this encounter Additional Health Concerns Assessment Noted Time PHQ-9 Depression Total Score: 9 01/30/20 24 9:09 AM EDT documented as of this encounter Care Teams Restaurant Service Manager Relationship Specialty Start Date End Date Appram, Shanda, FEE CLERK [address] [place] [address] PCP - General Family Medicine 06/06/23 Jas Cordero FNP [address] [place] [address] Nurse Practitioner Family Medicine 07/24/23 Aixa Ng PetrologistHeat Treat Operator 09/11/23 documented as of this encounter
--- OUTSIDE RECORDS SUMMARY | 2025-05-15 14:49 | XMS_ITS | Encounter Summary ---
Author Organization [employer] Address [address] [place] [address] 7t [place] [address] Care Team Providers Care Board Lining Machine Operator Name Role Phone Shanda Rg NP Primary Care Provider [phone] Jas Cordero Unavailable Unavailable Encounter Details Date Type Department [facility] Description 08/15/2024 Telephone [facility] [address] [place], [place] [phone] Shanda Rg NP [address] [place], [place] [phone] Social History Tobacco Use Types Packs/Day Years [...] [facility] [address] [place] [address] Cait Velazquez RN documented as of this encounter Visit Diagnoses Not on filedocumented in this encounter Additional Health Concerns Assessment Noted Time PHQ-9 Depression Total Score: 9 01/30/20 24 9:09 AM EDT documented as of this encounter Care Teams Board Lining Machine Operator Relationship Specialty Start Date End Date Shanda Rg NP [address] [place] [address] PCP - General Family Medicine 06/06/23 Jas Cordero FNP [address] [place] [address] Nurse Practitioner Family Medicine 07/24/23 Aixa Ng Bariatric PhysicianSash Assembler 09/11/23 documented as of this encounter
--- OUTSIDE RECORDS SUMMARY | 2025-05-15 14:49 | XMS_ITS | Encounter Summary ---
Author Organization [facility] Address [address] [place] [address] Phone Care Team Providers Care Diamond Sizer Name Role Phone Pcp, Unknown Primary Care Provider Unavailabl e Encounter Details Date Type Department Care Team (Late st Contact Info) Description 08/05/2020 Procedure [facility] [address] [place] [address] [place] [address] Social History Tobacco Use Types Packs/Day Years [...] on filedocumented in this encounter Care Teams Diamond Sizer Relationship Specialty Start Date End Date Pcp, Unknown PCP - General 07/06/17 documented as of this encounter Additional Source Comments The information contained in this document represents components of the legal health record. It is not the complete legal health record.[facility]
--- OUTSIDE RECORDS SUMMARY | 2025-05-15 14:49 | XMS_ITS | Clinical Summary ---
Author Organization [employer] Address [address] [place] [address] 7 [place] [address] Care Team Providers Care Environmental Marketing Representative Name Role Phone Shanda Rg NP Primary Care Provider [phone] Jas Cordero Unavailable Unavailable Allergies No known [...] hours. 02/21/20 20 Active Fluocinolone Acetonide Scalp ([place] /FS Scalp) 0.01 % oilIndications :Psoriasis Use [...] tabletIndicati ons:Major depressive disorder with psychotic features ([facility]/HCC) TAKE 1 TABLET BY MOUTH EVERY DAY [...] 2 diabetes mellitus without complication, unspecified whether roasterman insulin use (CMS/[facility]) TEST BLOOD SUGAR ONCE DAILY 100 each 11 04/20 25 Active glucose blood (FREESTYLE LITE) test stripIndicatio ns:Type 2 diabetes mellitus without complication, unspecified whether roasterman insulin use ([facility]) TEST BLOOD SUGAR ONCE DAILY 50 each 10/30/19 25 Active Blood Glucose Monitoring Suppl (FreeStyle Lite) w/Device kitIndications :Type 2 diabetes mellitus without complication, unspecified whether jail insulin use ([facility]) 1 kit 3 times daily. 1 kit 10/30/19 25 Active metFORMIN (Glucophage) 500 MG tabletIndicati ons:Type 2 diabetes mellitus without complication, without long-term current use of insulin ([facility]) TAKE 1 TABLET BY MOUTH EVERY MORNING WITH A MEAL 90 tablet 1 01/15/20 25 Active D3 Super Strength 50 MCG (1999 [place]) capsuleIndicat ions:Vitamin D deficiency TAKE 1 [...] BEDTIME 90 tablet 1 03/17/20 25 Active gabapentin (Neurontin) 300 MG capsuleIndicat ions:Radiculop athy, cervical region TAKE 1 CAPSULE BY MOUTH TWICE DAILY IN THE MORNING AND AT NOON and TAKE 2 CAPSULES BY MOUTH EVERY DAY AT BEDTIME 120 capsule 04/15/20 25 Active Alcohol Swabs (Alcohol Prep) 70 % padsIndication s:Type 2 diabetes mellitus without complication, unspecified whether roasterman insulin use ([facility]) USE DIRECTED THREE TIMES DAILY 100 each 11 05/06/20 25 Active traMADol (Ultram) 50 MG tabletIndicati ons:Chronic pain of both knees TAKE 2 TABLETS BY MOUTH EVERY 12 HOURS NEEDED FOR SEVERE PAIN 112 tablet 05/12/20 25 025 Active Alcohol Swabs 70 % padsIndication s:Type 2 diabetes mellitus without complication, unspecified whether jail insulin use ([facility]) 1 Units 3 times daily. 90 each 3 10/30/19 25 025 Discontinued traMADol (Ultram) 50 MG tabletIndicati ons:Chronic pain of both knees Take 2 tablets (100 mg) by mouth every 12 (twelve) hours if needed for severe pain for up to 28 days. TAKE 2 TABLETS BY MOUTH EVERY TWELVE HOURS NEEDED FOR SEVERE PAIN Do not start before April 08, 2025. 112 tablet 04/08/20 25 025 Discontinued Active Problems Problem Noted Date Diagnosed Date Long-term current use of opiate analgesic 2024 Chronic pain syndrome 10/19/2024 Assessment & Plan (10/19/2024 12:10 PM EST): -followed by [facility] -continue tramadol as ordered -encouraged to continue TANNING WHEEL OPERATOR appointments and encouraged to give some thought [...] Right shoulder pain 02/06/2024 Assessment & Plan (05/02/2025 2:38 PM EDT): -was being followed by [facility] -referral placed for care reestablishment Assessment & Plan (07/06/2024 4:48 PM EST): [...] that showed slight lumbar dextrocurvature with trace lftp-yd-bcnjr lateral lithesis at L4-L5. Trace anterolithesis at [...] affecting gait and ambulation Discussed RMV handicap katherine with pt, he will bring [...] Atorvastatin 40 mg daily Assessment & Plan (05/02/2025 2:47 PM EDT): -stable -A1c 6.8% on 10/2024; POCT 106 mg/dL today -continue metformin 500 mg -diet and lifestyle modifications reviewed Assessment & Plan (03/12/2025 4:35 PM EDT): [...] metformin F/u PRN Osteochondroma of bone 08/30/2016 Primary hypertension 01/01/2016 Overview (05/13/2023): Losartan 100 mg daily Amlodipine 5 mg daily Assessment & Plan (05/02/2025 2:36 PM EDT): -not currently taking prescribed medications -medication compliance reviewed Assessment & Plan (03/12/2025 4:30 PM EDT): [...] 02/06/2024 Pain of tooth socket 12/16/2016 023 Dizziness and giddiness 10/28/2016 0912/2024 Backache 08/30/2016 09/21/2022 Encounters Date Type Department Care Team Description 05/09/2025 Refill [facility] [address] [place] [address] Shanda Rg NP Chronic pain of both knees 05/03/2025 Refill [facility] [address] [place] [address] Shanda Rg NP Type 2 diabetes mellitus without complication, unspecified whether jail insulin use ([facility]) 04/29/2025 Orders Only GENERIC EXTERNAL DATA DEPARTMENT Provider, Generic External Data 04/25/2025 3:15 PM EDT Office Visit [facility] [address] [place] [address] Shanda Rg NP Generalized joint pain (Primary Dx) 04/25/2025 Travel 04/22/2025 Telephone [facility] [address] [place] [address] Shanda Rg NP Nurse Triage 04/14/2025 Refill [facility] [address] [place] [address] Shanda Rg NP Radiculopathy, cervical region 04/04/2025 Refill [facility] [address] [place] [address] Cait Velazquez RN Chronic pain of both knees 04/01/[address] [address] Shanda Rg NP Chronic pain of both knees 03/16/2025 Refill [facility] [address] [place] [phone] Shanda Rg NP Psoriasis 03/11/2025 9:30 AM EDT Clinical Support [address] [address] Cait Velazquez RN Long-term current use of opiate analgesic (Primary Dx) 03/11/[address] [address] Cait Velazquez RN BPI Scoring 03/11/2025 Travel 03/07/2025 2:30 PM EDT Office Visit [address] [address] Shanda Rg NP Chronic right shoulder pain (Primary Dx); Type 2 diabetes mellitus without complication, unspecified whether jail insulin use ([facility]); Primary hypertension; Positive screening for depression on 9-item Patient Health Questionnaire (PHQ-9) 03/07/2025 Travel 03/06/2025 Refill [facility] [address] [place] [address] Shanda Rg NP Radiculopathy, cervical region 03/03/2025 Refill [facility] [address] [place] [address] Shanda Rg NP Chronic pain of both knees from Last 3 Months Immunizations Immunization Administration [...] housing situation today? I have conrado anurag 03/07/[address] you li [...] EST Clinical Support [facility] [address] [place] [phone] Cait Velazquez, RN Health Maintenance Due Date [...] Procedure Name Priority Date/Time Associated Diagnosis Comments METHYLMALONIC ACID Routine 04/29/2025 9: 18 AM EDT HOMOCYSTEINE Routine 04/29/2025 9:18 AM EDT VITAMIN B12/FOLATE, SERUM PANEL Routine 04/29/2025 9:18 AM EDT SED RATE BY MODIFIED WESTERGREN Routine 04/25/2025 4:10 PM EDT Generalized joint pain C-REACTIVE PROTEIN Routine 04/25/2025 4: 10 PM EDT Generalized joint pain RHEUMATOID FACTOR Routine 04/25/2025 4:1 0 PM EDT Generalized joint pain CYCLIC CITRULLINATED PEPTIDE (CCP) AB (IGG) Routine 04/25/2025 4:10 PM EDT Generalized joint pain POCT ADRIAN-14 URINE DRUG SCREEN Routine 03/11/2025 9:35 AM EDT Long-term current use of opiate analgesic POCT GLUCOSE Routine 03/07/2025 2:49 PM EDT Type 2 diabetes mellitus without complication, unspecified whether roasterman insulin use (CMS/HCC) HEMOGLOBIN A1C Routine 11/19/2024 8:55 AM EDT [...] Recently Relevant to Health Maintenance Results * Vitamin B12 (Cobalamin) and Folate Panel, Serum (04/29/2025 9:18 AM EDT) Vitamin B12 564 200 - 900 pg/mL [facility] Comment:NORMAL 200-900 PG/ML INDETERMINATE 160-199 PG/ML DEFICIENT < 160 PG/ML Folate 12.9 > or = 4.0 ng/mL [facility] Comment:Reference Values:> o r = 4.0 ng/mL< 4.0 ng/mL suggests folate deficiency Methotrexate, aminopterin and folinic acid(leucovorin) are chemotherapeutic agents whose molecularstructures are similar to folate; therefore, the Architectfolate assay cannot be used for patients using these drugs. 04/29/2025 9:18 AM EDT 04/29/2025 9:18 AM EDT us Generic External Data Provider LAB BLOOD ORDERAB LES Final Result [facility] [address] [place] [phone] * Methylmalonic Acid (04/29/2025 9:18 AM EDT) Methylmalonic Acid 165 55 - 335 nmol/L [facility] Comment: Serum methylmalonic acid (MMA) levels [...] outcomes,such as neural tube defects and intrauterine growthrestriction.[employer] utilized Multi-Modal Decomposition(MMD) analysis to establish first and second trimester-specific MMA reference intervals in , as givenbelow:MMA, First trimester (<13 wks gestation): 58-167 nmol/LMMA, Second trimester (13-23 wks gestation):63-241 nmol/LThis test was developed and its analytical performancecharacteristics have been determined by [employer]. It has not been cleared or approved by theFDA. This assay has been validated pursuant to the CLIAregulations and is used for clinical purposes.THIS TEST WAS PERFORMED AT:[facility] [place] [address]LGPGTOZZANA THAO MD,PHD 04/29/2025 9:18 AM EDT 04/29/2025 9:18 AM EDT us Generic External Data Provider LAB BLOOD ORDERAB LES Final Result Performing Organization Address [facility]/[employer] [employer] de Phone Number [facility] [address] [place] [phone] * Homocysteine (04/29/2025 9:18 AM EDT) Pathologist [facility] Homocysteine 8.7 < or = 15.2 umol/L [facility] Comment:Homocysteine is incr eased by functional deficiency offolate or vitamin B12. Testing for methylmalonic aciddifferentiates between these deficiencies. Other causesof increased homocysteine include renal failure, folateantagonists such as methotrexate and phenytoin, andexposure to nitrous oxide.Carmela Licona, et al., [employer] Med. 1999;131(5):331-9.THIS TEST WAS PERFORMED AT:[facility] [address] [id number] PALACIO MD 04/29/2025 9:18 AM EDT 04/29/2025 9:18 AM EDT us Generic External Data Provider LAB BLOOD ORDERAB LES Final Result Performing Organization Address [facility] de Phone Number [facility] [address] [place] [phone] * Cyclic Citrullinated Peptide (CCP) Antibody (IgG) (04/25/2025 4:10 PM EDT) Cyclic Citrullinated Peptide <16 UNITS [facility] Comment:Reference RangeNegat wally: <20Weak Positive: 20-39Moderate Positive: 40-59Strong Positive: >59THIS TEST WAS PERFORMED AT:[facility] [address] [id number] PALACIO MD Blood Venous blood specimen / Unknown 04/25/2025 4:10 PM EDT 04/25/2025 5:23 PM EDT [facility] LAB BLOOD ORDERABLES Final Resu lt Performing Organization Address [facility]/[employer] de Phone Number [facility] [address] [place] [phone] * Sed Rate by Modified Adairergren (04/25/2025 4:10 PM EDT) Erythrocyte Sedimentation Rate 9 0 - 15 MM/HR [facility] Comment:Patients with polycy themia and many hemoglobin abnormalitiesmay have depressed sed rates whereas patients with anemiamay have elevated sed rates. Blood Venous blood specimen / Unknown 04/25/2025 4:10 PM EDT 04/25/2025 5:25 PM EDT [facility] LAB BLOOD ORDERABLES Final Resu lt Performing Organization Address [facility] [employer] de Phone Number [facility] [address] [place] [phone] * Rheumatoid Factor (04/25/2025 4:10 PM EDT) [facility] Rheumatoid Factor <13.0 <15.0 IU/mL [facility] Blood Venous blood specimen / Unknown 04/25/2025 4:10 PM EDT 04/25/2025 5:23 PM EDT [facility] LAB BLOOD ORDERABLES Final Resu lt Performing Organization Address [facility] [employer] de Phone Number [facility] [address] [place] [phone] * (ABNORMAL) C-reactive Protein (04/25/2025 4:10 PM EDT) Pathologist [facility] C Reactive Protein 1.71(H) < or = 0.50 mg/dL [facility] Blood Venous blood specimen / Unknown 04/25/2025 4:10 PM EDT 04/25/2025 5:23 PM EDT Shanda Rg LAB BLOOD ORDERABLES Final Resu lt [facility] [address] [place] [phone] * POCT ADRIAN-14 Urine Drug Screen (03/11/2025 9:35 AM EDT) Pathologist [facility] THC Negative Negative Cocaine Screen, Urine Negative [...] - 03/11/2025 9:35 AM EDT UTOX cup Lot#[id number] Exp. 06/03/26 Internal Pass Control [facility] POINT OF CARE TEST ENTER/EDIT O RDERABLES Final Result * POCT Glucose (03/07/2025 2:49 PM EDT) Pathologist [facility] Glucose Blood, POC 106 60 - 200 mg/dL [employer] Media Lot # [id number] Lot# Expiration Date Blood Capillary blood specimen / Unknown 03/07/2025 2:49 PM EDT [facility] POINT OF CARE TEST ENTER/EDIT O RDERABLES Final Result * (ABNORMAL) Hemoglobin A1c (11/19/2024 8:55 AM EDT) Hemoglobin A1c 6.8(H) <6.0 % [facility] Comment:Hemoglobin A1C Refer ence Range Adults: 4.8 - 6.0 % Non diabetic: < 6.0 % Goal: < 7.0 %Additional Action Suggested: > 8.0 %Note: Hemoglobin A1c results are invalid for patients with abnormal amounts of HbF. Blood transfusions may impact the HbA1c concentration in the patient sample. Estimated Average Glucose 148 mg/dL [facility] Comment:eAG = Estimated ave rage glucose which is %A1C expressed asaverage glucose, using the formula of the M6S-KkxywmhKpydkuw Glucose study (ADAG), Diabetes Care, Vol.31,#8,2007 11/19/2024 8:55 AM EDT 11/19/2024 8:55 AM EDT us Generic External Data Provider LAB BLOOD ORDERAB LES Final Result Performing Organization Address [facility]/ZIP Co de Phone Number [facility] [address] [place] [phone] * Albumin, Random Urine W/Creatinine (09/05/2024 8:35 AM EST) Creatinine, Urine 117.04 mg/dL [facility] Microalbumin Urine 8.0 mg/L [facility] Microalbum Creatinine Ratio Ur 6.8 <30 ug/mg cr [facility] Comment:Albumin/Creatinine R atio Reference Ranges: Normal: < 30 ug/mg creatinine Microalbuminuria: 30 - 300 ug/mg creatinineClinical Albuminuria: > 300 ug/mg creatinine Urine (Urine, Random) 09/05/2024 8:35 AM EST 09/05/2024 11:21 AM EST us Shanda Rg COLOR RECEIVER LAB URINE ORDERABLES Final Resu lt Performing Organization Address [facility]/ZIP Co de Phone Number [facility] [address] [place] [phone] * (ABNORMAL) Lipid Panel, Standard (09/05/2024 8:35 AM EST) Triglycerides 344(H) <150 mg/dL [facility] Comment:Mild Lipemia.Desirab le Triglyceride: less than 150 mg/dLBorderline High Triglyceride 150-199 mg/dLHigh Triglyceride: 200-499 mg/dLVery High Triglyceride: greater than or equal to 5OO mg/dL Cholesterol 183 <200 mg/dL [facility] Comment:Desirable Cholestero l: less than 200 mg/dLBorderline High Cholesterol: 200-239 mg/dLHigh Cholesterol: greater than 239 mg/dL LDL Cholesterol Calculated 82 <100 mg/dL [facility] Comment:Desirable LDL: less than 100 mg/dLNear Optimal/Above Optimal LDL: 110- 129 mg/dLBorderline High LDL: 130-159 mg/dLHigh LDL: 160-189 mg/dLVery High LDL: greater than or equal to 190 mg/dL HDL Cholesterol 33(L) >40 mg/dL [facility] Comment:Desirable HDL: great er than 40 mg/dL Note: This HDL assay may give artificially low results in patients with liver disease. Blood Venous blood specimen / Unknown 09/05/2024 8:35 AM EST 09/05/2024 11:23 AM EST us Shanda Rg COLOR RECEIVER LAB BLOOD ORDERABLES Final Resu lt [facility] [address] [place] [phone] * Hepatitis C Antibody with Reflex to HCV, RNA, Quantitative, Real-Time PCR (11/09/2023 3:25 PM EDT) Hepatitis C Antibody Nonreactive Nonreactive [facility] Comment:Antibodies to HCV no t detected; does not exclude early acuteHCV infection. Blood Venous blood specimen / Unknown 11/09/2023 3:25 PM EDT 11/09/2023 3:25 PM EDT us [facility] LAB BLOOD ORDERABLES Final Resu lt Performing Organization Address [facility]/ZIP Co de Phone Number [facility] [address] [place] [address] [phone] * HIV-1/2 Antigen and Antibodies, Fourth Generation, with Reflexes (11/09/2023 3:25 PM EDT) HIV AB/AG Nonreactive Nonreactive [facility] Comment:HIV-1 p24 Ag and/or HIV-1/HIV-2 Ab not detected.A test result that is nonreactive does not exclude thepossibility of exposure to or infection with HIV-1 and/orHIV-2. Nonreactive results in this assay for individualswith prior exposure to HIV-1 and/or HIV-2 may be due toantigen and antibody levels that are below the limit ofdetection of this assay.The [employer] HIV Ag/Ab Combo assay result andsupplemental assay results should be interpreted inconjunction with the patient's clinical presentation,history and other laboratory results. If the results areinconsistent with clinical evidence, additional testing issuggested to confirm the result. Blood Venous blood specimen / Unknown 11/09/2023 3:25 PM EDT 11/09/2023 3:25 PM EDT [facility] LAB BLOOD ORDERABLES Final Resu lt Performing Organization Address [facility]/ZIP Co de Phone Number [facility] [address] [place] [phone] * Hm Colonoscopy (07/12/2021) Colonoscopy normal Historical Provider HEALTH MAINTENANCE Edited Result - Final from Last 3 Months or Most Recently Relevant to Health Maintenance Insurance [facility] C3 Care Teams Environmental Marketing Representative Relationship Specialty Start Date End Date Shanda Rg NP [address] [place] [address] PCP - General Family Medicine 06/06/23 Jas Cordero FNP [address] [place] [address] Nurse Practitioner Family Medicine 07/24/23 Aixa Ng Bank CashierBearing Inspector 09/11/23
--- OUTSIDE RECORDS SUMMARY | 2025-05-15 14:49 | XMS_ITS | Clinical Summary ---
Author Organization [facility] Address [address] [place] [address] Care Team Providers Care Child Support Specialist Name Role Phone Unavailable Primary Care Provider [...] that showed slight lumbar dextrocurvature with trace alod-co-bomfs lateral lithesis at L4-L5. Trace anterolithesis at [...] Major depressive disorder wi th psychotic features ([facility]) 08/16/2022 Overview (05/09/2024): Last Assessment & Plan: [...] retiring patient will be transferred to new [facility] Psychiatric Prescriber. Pt is aware that those appointments will be via televisit, and that the provider is not an [facility] employee. He gives verbal consent to [...] Type 2 diabetes mellitus wit hout complication ([facility]) 12/16/2016 Overview (05/09/2024): Education provided re: therapeutic [...] - 19 + 3-dose series) 05/11/2023 04/13/2023 Hemoglobin A1c 05/05/2024 11/03/2023, 03/28, 06/08/2022, Additional history exists Alcohol and Drug Screen 08/28/2024 Lipid Screening 11/08/2024 11/09/2023 [id number] ( season) 2025 09/02/2022, 2021, 12/07/2020, Additional history exists Imm-Influenza (#1) 2025 07/10/2020, 0 05/16/2018, 05/19/2016 Imm-DTaP/Tdap/Td (2 - Td or Tdap) 07/03/2029 019 Imm-Zoster, Recombinant Completed 09/23/2020, 07/10 Imm-Pneumococcal 50+ Completed 04/13/2023, 10/26/2021, 07/03/2019 HIV Screening Completed 11/09/2023, 11/09/2023 Hepatitis C Screening Completed 11/09/2023 Insurance [place] [employer] [employer]
--- OUTSIDE RECORDS SUMMARY | 2025-05-15 14:49 | XMS_ITS | Encounter Summary ---
Author Organization [facility] Address [address] [place] [address] [address] [address] Care Team Providers Care Drift Miner Name Role Phone Carmen Faust MD Primary Care Provider Cali Lundberg CLINICAL RESEARCH MONITOR Primary Care Provider Jada Gomez CLINICAL RESEARCH MONITOR Primary Care Provider Marissa Shanda Mensah NP Primary Care Provider [phone] Jas Cordero CLINICAL RESEARCH MONITOR Unavailable Unavailable Encounter Details Date Type Department Care Team (Late st Contact Info) Description 08/05/2022 Orders Only [facility] [address] [place] [phone] Matthew Dunbar MD [address] [place] [phone] Social History Tobacco Use Types Packs/Day Years [...] Description 07/09/2025 9:00 AM EST Clinical Support [facility] [address] [place] [phone] Cait Velazquez RN documented as of this encounter Visit Diagnoses Not on filedocumented in this encounter Care Teams Drift Miner Relationship Specialty Start Date End Date Carmen Faust MD PCP - General Family Medicine 02/17/20 09/20/22 Cali Steward FNP PCP - General Family Medicine 09/21/22 10/26/22 Jada Erickson FNP PCP - General Family Medicine 10/27/22 06/05/23 Shanda Rg NP [address] [place] [phone] PCP - General Family Medicine 06/06/23 Jas Cordero FNP [address] [place] [phone] Nurse Practitioner Family Medicine 07/24/23 Aixa Ng Skates OperatorCommunity Chest Officer 09/11/23 documented as of this encounter
--- OUTSIDE RECORDS SUMMARY | 2025-05-15 14:49 | XMS_ITS | Encounter Summary ---
Author Organization [employer] Address [address] [place] [address] [address] [place] [address] Care Team Providers Care Superintendent Drilling Name Role Phone Shanda Rg NP Primary Care Provider [phone] Jas Cordero Unavailable Unavailable Reason for Visit * Reason Onset Date Comments Med Refill 02/15/2024 Encounter Details Date Type Department Care Team (Late st Contact Info) Description 02/15/2024 Telephone [facility] [address] [place] [address] Shanda Rg NP [address] [place], [place] [phone] Med Refill Social History Tobacco Use Types [...] 10:43 AM EDT Medication was sent to [facility] on 01/30/24 #30 with 5 refills. * Telephone Encounter - Susan Mendoza - 02/15/2024 10:39 AM EDT TC from pt requesting medication refill. Medications needing refill : zolpidem (Ambien) 10 MG tablet To be sent to: [facility] [place], [place] - [address] [facility] documented in this encounter Plan of Treatment Upcoming Encounters Date Type Department Care Team (Late st Contact Info) Description 07/09/2025 9:00 AM EST Clinical Support [facility] [address] [place] [address] Cait Velazquez, RN documented as of this encounter Visit Diagnoses Not on filedocumented in this encounter Additional Health Concerns Assessment Noted Time PHQ-9 Depression Total Score: 9 01/30/20 24 9:09 AM EDT documented as of this encounter Care Teams Superintendent Drilling Relationship Specialty Start Date End Date Shanda Rg NP [address] [place] [address] PCP - General Family Medicine 06/06/23 Jas Cordero FNP [address] [place] [address] Nurse Practitioner Family Medicine 07/24/23 Aixa Ng Scientific Systems AnalystCoding Machine Operator 09/11/23 documented as of this encounter
--- OUTSIDE RECORDS SUMMARY | 2025-05-15 14:49 | XMS_ITS | Encounter Summary ---
Author Organization [facility] Address [address] [place] [address] Phone Care Team Providers Care Vacuum Metalizer Operator Name Role Phone Pcp, Unknown Primary Care Provider Unavailabl e Encounter Details Date Type Department Care Team (Late st Contact Info) Description 07/06/2017 Ancillary Orders [facility] [address] [place] [address] [place] [address] Darius Johnson DO [address] [place] [address] Palpitations Social History Tobacco Use Types Packs/Day [...] Palpitations documented in this encounter Care Teams Vacuum Metalizer Operator Relationship Specialty Start Date End Date Pcp, Unknown PCP - General 07/06/17 documented as of this encounter Additional Source Comments The information contained in this document represents components of the legal health record. It is not the complete legal health record.[facility]
--- OUTSIDE RECORDS SUMMARY | 2025-05-15 14:49 | XMS_ITS | Clinical Summary ---
Author Organization [facility] Address [address] [place] [address] [place] [address] Phone Care Team Providers Care Rides Attendant Name Role Phone Pcp, Unknown Primary Care [...] file Medical Devices Not on file Insurance [facility] CAREPLUS Member Subscriber Plan / Payer (Ef fective 2017-Present) Name:Davidson Gillespie Relation to Subscriber:Self Name:Davidson Gillespie Payer ID:[id number] Group ID:[id number] Type:Medicaid Address: [address] [facility] C3 [employer] [facility] CAREPLUS Member Subscriber Plan / Payer (Ef fective 2017-Present) Name:Davidson Gillespie Relation to Subscriber:Self Name:Davidson Gillespie Payer ID:[id number] Group ID:[id number] Type:Medicaid Address: [address] C3 [employer] [facility] CAREPLUS Member Subscriber Plan / Payer (Ef fective 2017-Present) Name:Davidson Gillespie Relation to Subscriber:Self Name:Davidson Gillespie Payer ID:[id number] Group ID:[id number] Type:Medicaid Address: [address] [employer] [facility] CAREPLUS Member Subscriber Plan / Payer (Ef fective 2017-Present) Name:Davidson Gillespie Relation to Subscriber:Self Name:Davidson Gillespie Payer ID:[id number] Group ID:[id number] Type:Medicaid Address: [address] [employer] [facility] CARE[employer]US Member Subscriber Plan / Payer (Ef fective 2017-Present) Name:Davidson Gillespie Relation to Subscriber:Self Name:Davidson Gillespie Payer ID:[id number] Group ID:[id number] Type:Medicaid Address: [address] [place] [address] CAREPLUS Member Subscriber Plan / Payer (Ef fective 2017-Present) Name:Davidson Gillespie Relation to Subscriber:Self Name:Davidson Gillespie Payer ID:[id number] Group ID:[id number] Type:Medicaid Address: [address] [employer] [facility] CARE[employer]US Member Subscriber Plan / Payer (Ef fective 2017-Present) Name:Davidson Gillespie Relation to Subscriber:Self Name:Davidson Gillespie Payer ID:[id number] Group ID:[id number] Type:Medicaid Address: [address] [place], [place] [address]PLUS Member Subscriber Plan / Payer (Ef fective 2017-Present) Name:Davidson Gillespie Relation to Subscriber:Self Name:Davidson Gillespie Payer ID:[id number] Group ID:[id number] Type:Medicaid Address: [address] [employer] [facility] [employer] C3 ACO Care Teams Rides Attendant Relationship Specialty Start Date End Date Pcp, Unknown PCP - General 07/06/17 Additional Source Comments The information contained in this document represents components of the legal health record. It is not the complete legal health record.[facility]
--- OUTSIDE RECORDS SUMMARY | 2025-05-15 14:49 | XMS_ITS | Encounter Summary ---
Author Organization [employer] Address [address] [place] [address] 7t [place] [address] Care Team Providers Care Strategic Sourcing Consultant Name Role Phone Shanda Rg NP Primary Care Provider [phone] Jas Cordero Unavailable Unavailable Encounter Details Date Type Department Care Team ([facility] Contact Info) Description 07/12/2024 Telephone [facility] [address] [place], [place] [phone] Shanda Rg NP [address] [place], [place] [phone] Social History Tobacco Use Types Packs/Day Years [...] Clinical Support [facility] [address] [place] [address] Cait Velazquez RN documented as of this encounter Visit Diagnoses Not on filedocumented in this encounter Additional Health Concerns Assessment Noted Time PHQ-9 Depression Total Score: 9 01/30/20 24 9:09 AM EDT documented as of this encounter Care Teams Strategic Sourcing Consultant Relationship Specialty Start Date End Date Shanda Rg NP [address] [place] [address] PCP - General Family Medicine 06/06/23 Jas Cordero FNP [address] [place] [address] Nurse Practitioner Family Medicine 07/24/23 Aixa Ng Reliability ManagerClassification Analyst 09/11/23 documented as of this encounter
--- OUTSIDE RECORDS SUMMARY | 2025-05-15 14:49 | XMS_ITS | Encounter Summary ---
Author Organization [employer] [facility] Address [address] [place] [address] [place] [address] Care Team Providers Care Operations Assistant Name Role Phone Carmen Faust MD Primary Care Provider Cali Lundberg Primary Care Provider Jada Gomez JEWELRY CONSULTANT Primary Care Provider Shanda Roman NP Primary Care Provider [phone] Jas Cordero Unavailable Unavailable Reason for Visit * Reason Comments Med Refill Encounter Details Date Type Department Care Team (Late st Contact Info) Description 09/01/2022 Refill [facility] MEDICINE [address] [place] [address] Jas Cordero FNP Social History Tobacco Use [...] Description 07/09/2025 9:00 AM EST Clinical Support [facility] [address] [place] [address] Caroline, Cait, RN documented as of this encounter Visit Diagnoses Not on filedocumented in this encounter Additional Health Concerns Assessment Noted Time PHQ-9 Depression Total Score: 12 022 9:34 AM EST documented as of this encounter Care Teams Operations Assistant Relationship Specialty Start Date End Date Carmen Faust MD PCP - General Family Medicine 02/17/20 09/20/22 Cali Steward FNP PCP - General Family Medicine 09/21/22 10/26/22 Jada Erickson FNP PCP - General Family Medicine 10/27/22 06/05/23 Shanda Rg NP [address] [place] [address] PCP - General Family Medicine 06/06/23 Jas Cordero FNP [address] [place] [address] Nurse Practitioner Family Medicine 07/24/23 Aixa Ng Schedule ClerkGriddle Cook 09/11/23 documented as of this encounter
--- OUTSIDE RECORDS SUMMARY | 2025-05-15 14:49 | XMS_ITS | Encounter Summary ---
Author Organization [employer] [facility] Address [address] [place] [address] 7 [place] [address] Care Team Providers Care Paper Spooler Name Role Phone Jada Erickson DIRECTOR OF SERVICES Primary Care Provider Shanda Roman SUPERVISOR GRINDING Primary Care Provider [phone] Jas Cordero DIRECTOR OF SERVICES Unavailable Unavailable Reason for Visit * Reason Comments Med Refill Encounter Details Date Type Department Care Team ([facility] Contact Info) Description 01/24/[address] [address] Jada Erickson FNP Pain; Cervical radiculopathy; Lumbar [...] Upcoming Encounters Date Type Department Care Team ([facility] Contact Info) Description 07/09/2025 9:00 AM EST Clinical Support [facility] [address] [place] [address] Cait Velazquez, LUCY documented as of this encounter Visit Diagnoses Diagnosis Pain Generalized pain Cervical radiculopathy Brachial neuritis or radiculitis nos Lumbar radiculopathy Thoracic or lumbosacral neuritis or radiculitis, unspecified documented in this encounter Additional Health Concerns Assessment Noted Time PHQ-9 Depression Total Score: 9 01/18/20 12:56 PM EDT documented as of this encounter Care Teams Paper Spooler Relationship Specialty Start Date End Date Jada Erickson FNP PCP - General Family Medicine 10/27/22 06/05/23 Shanda Rg NP [address] [place] [address] PCP - General Family Medicine 06/06/23 Jas Cordero FNP [address] [place] [address] Nurse Practitioner Family Medicine 07/24/23 Aixa Ng Loading InspectorStorage And Backup Administrator 09/11/23 documented as of this encounter
== END 2025-05-15 13:51 | disposition home or self-care (01) ==
LOC: HO.HSMS 12:45
PROVIDERS: PCP Registered Nurse; Visit Provider Nurse Practitioner Family
DX: G25.81 Restless legs syndrome (principal); G47.61 Periodic limb movement disorder; G47.33 Obstructive sleep apnea (adult) (pediatric)
CPT/HCPCS: 99213

== ENCOUNTER → 2025-05-15 12:44 | Outpatient (BNVA) | payer MEDICAID, SELFPAY | PROVIDERS: PCP Registered Nurse; Visit Provider Nurse Practitioner Family | DX: G25.81 Restless legs syndrome (principal); G47.61 Periodic limb movement disorder; G47.33 Obstructive sleep apnea (adult) (pediatric) | CPT/HCPCS: 99212 ==

== ENCOUNTER 2025-06-09 13:54 | Outpatient (REF) | payer MEDICAID, SELFPAY ==
[2025-06-09 16:01] LABS: MANUAL DIFF FLAG NO
[2025-06-09 16:17] LABS: Hematocrit 45.7 % (42.0-52.0); Hemoglobin 14.7 g/dl (14.0-18.0); Imm Gran Abs Auto 0.03 X10*3/uL (0.00-0.03); Imm Gran Pct Auto 0.3 % (0.0-0.4); Lymphocytes Absolute Auto 3.4 X10*3/uL (1.2-4.9); Mean Corpuscular HGB Conc 32.2 g/dl (31.0-36.0); Mean Corpuscular Hemoglobin 28.1 pg (27.0-33.0); Mean Corpuscular Volume 87.4 fL (80.0-98.0); NRBC Abs Auto 0.000 X10*3/uL (0.0-0.012); NRBC Pct Auto 0.0 /100WBC (0.0-0.2); Platelet Count 192 X10*3/uL (160-400); Red Blood Count 5.23 X10*6/uL (4.60-5.80); White Blood Count 9.8 X10*3/uL (4.8-10.8)
[2025-06-09 16:32] LABS: Alanine Aminotransferase 31 U/L (0-40); Albumin Level 4.6 g/dL (3.5-5.0); Alkaline Phosphatase 116 U/L (39-117); Aspartate Amino Transferase 21 U/L (5-37); Total Protein 7.7 g/dL (6.5-8.0)
== END 2025-06-09 13:55 | disposition home or self-care (01) ==
LOC: HO.HHCL 13:54
PROVIDERS: PCP Nurse Practitioner; Visit Provider Internal Medicine
DX: R10.11 Right upper quadrant pain (principal)
CPT/HCPCS: 36415; 80076; 85025

== ENCOUNTER 2025-07-04 08:12 | Outpatient (REF) | payer MEDICAID, SELFPAY ==
--- NOTE | ~2025-07-04 | XR_ITS ---
EXAMINATION: XR SHOULDER, LEFT CLINICAL INFORMATION: M25.512 - Pain in left shoulder COMPARISON: X-ray 03/28/2024, 04/25/2023 TECHNIQUE: Three views of the left shoulder. FINDINGS: Bone mineralization appears slightly decreased. No visible acute fracture or dislocation. Glenohumeral and acromioclavicular joint spaces are maintained. Redemonstrated is a lytic expansile lesion in the proximal humeral metaphysis and diaphysis, similar in appearance from 03/28/2024. There is stable dysmorphic appearance of the medial cortical surface. No acute pathological fracture is identified. No abnormal soft tissue calcification. XR/XR shoulder LT min 2V IMPRESSION: Redemonstrated is a lytic lesion in the proximal humeral shaft, stable from the prior x-ray. No acute pathological fracture is identified. Please see the differential considerations provided in the prior radiology reports. If clinically warranted, this could be further evaluated with MRI. Ongoing radiographic follow-up is recommended. Electronically signed by: Ramiro Caruso MD 07/04/2025 08:56 AM [facility]
== END 2025-07-04 08:13 | disposition home or self-care (01) ==
LOC: HO.HOSX 08:12
PROVIDERS: Visit Provider Physician Assistant
DX: S46.002A Unspecified injury of muscle(s) and tendon(s) of the rotator cuff of left shoulder, initial encounter (principal); M85.622 Other cyst of bone, left upper arm; X58.XXXA Exposure to other specified factors, initial encounter
CPT/HCPCS: 73030; 99212

== ENCOUNTER 2025-07-04 08:22 | Outpatient (AMB) | payer MEDICAID, SELFPAY ==
--- NOTE | 2025-07-04 08:33 | A.OFFVIS_ITS ---
Vital Signs 07/04/25 08:34 Height 5 ft 6 in Weight 202 lb BMI 32.6 Intake Visit Reasons: OV- LT shoulder pain Intake Note: Davidson is a 59 year old right hand dominant male who presents today for a follow up of left shoulder. Patient was last seen for his left shoulder with Dr. Salazar, he was recommended to undergo a rotator cuff repair, he was to get back to the office if he wishes to move forward with procedure. Today patient reports severe pain with lifting heavy objects and with certain arm movements. Numbness and tingling in his hands, however he states this is from another medical condition. Denies any recent treatment. County Sheriff Required: Yes County Sheriff Services: County Sheriff Present County Sheriff Name: Best ID#[id number] Allergies No Known Allergies (No Known Allergies*) Allergy (Verified 07/04/25 08:44) Medication List - Last Reconciled 07/04/25 by Zak Scott PA-C alcohol swabs (Alcohol Prep Pads) pad topical TID amitriptyline 75 mg PO BEDTIME amlodipine 5 mg PO DAILY aripiprazole 30 mg PO BEDTIME atorvastatin 40 mg PO BEDTIME bisacodyl (Dulcolax (bisacodyl)) 20 mg (4 x 5 mg) PO ONCE 1 day blood sugar diagnostic (FreeStyle Lite Strips) As directed bupropion HCl SR 100 mg PO QAM buspirone 30 mg PO cholecalciferol (vitamin D3) 50 mcg PO QAM cyanocobalamin (vitamin B-12) 500 mcg PO DAILY 30 days folic acid 1 mg PO DAILY furosemide 20 mg PO QAM gabapentin 300 mg PO hydrochlorothiazide 12.5 mg PO DAILY hydrocortisone 2.5% (Proctosol HC) 1 appl AK BID-QID PRN ibuprofen 400 mg PO TID PRN lancets (TRUEplus Lancets) As directed lidocaine 5% 1 patch topical DAILY losartan 100 mg PO QAM metformin 500 mg PO DAILY metoprolol tartrate 50 mg PO BID polyethylene glycol 3350 (Miralax) 238 grams PO ONCE risperidone 1 mg PO BEDTIME ropinirole 1 mg (2 x 0.5 mg) PO BID sennosides (Natural Senna Laxative) 8.6 mg PO BEDTIME tizanidine 6 mg PO TID PRN tramadol 100 mg PO Q12H PRN venlafaxine ER 150 mg PO DAILY venlafaxine ER 75 mg PO DAILY venlafaxine ER 37.5 mg PO DAILY zolpidem 5 mg PO BEDTIME HPI HPI OV- LT shoulder pain: Details: 59 yo male presents to the office today fu left shoulder . He was seen by myself and Dr salazar last year and there was a discussion about proceeding with RTC repair which was not done. He did not proceed with surgery because he felt it would improve on its own. He states when he lifts the arm there is pain. He also experiencing weakness in the left shoulder. 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 At this time because his ability to perform activities is limited, he would like to discuss proceeding with surgical intervention. [facility] Medical History Low vitamin B12 level Internal hemorrhoid Tubular adenoma Cardiomyopathy Elevated cholesterol Sleep apnea Diabetes HTN (hypertension) Radiculopathy, lumbar region Disc degeneration, lumbar Spondylosis of lumbar spine Spondylosis of cervical spine Surgical History S/P skin biopsy History of hernia repair Hx of cardiac catheterization H/O colonoscopy Hx of knee surgery Hernia Family History Father HTN (hypertension) Diabetes Mother Diabetes HTN (hypertension) Heart disease Social History Household Members: Family Alcohol intake: former Patient Tobacco Use Status: Former Tobacco user Tobacco use type: Cigarette 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 Assessment & Plan Assessment & Plan (1) Injury of left rotator cuff: Code(s): S46.002A - Unspecified injury of muscle(s) and tendon(s) of the rotator cuff of left shoulder, initial encounter Category: Medical Qualifiers: Encounter type: initial encounter Qualified Code(s): S46.002A - Unspecified injury of muscle(s) and tendon(s) of the rotator cuff of left shoulder, initial encounter (2) Bone cyst of left humerus: Code(s): M85.622 - Other cyst of bone, left upper arm Category: Medical Plan The patient does express interest in proceeding with rotator cuff repair on the left shoulder as previously discussed however I will order another MRI of the left shoulder as it has been over a year since his previous 1 to further evaluate the extent of atrophy within the cuff. The patient does express understanding and will see me back once the scan is complete. Orders: Orders XR shoulder RT min 2V Today M25.511 - Pain in right shoulder XR shoulder LT min 2V Today M25.512 - Pain in left shoulder MR shoulder LT wo con Today S46.009A - Unspecified injury of muscle(s) and tendon(s) of the rotator cuff of unspecified shoulder, initial encounter Coding Level of Care Code Est Pt Level 3 (38962) Complex EM visit Add On G2211 Diagnoses Injury of left rotator cuff, initial encounter S46.002A Encounter type: initial encounter Bone cyst of left humerus M85.622
[2025-07-04 08:34] VITALS: BMI 32.6
--- OUTSIDE RECORDS SUMMARY | 2025-07-04 08:51 | XMS_ITS | Encounter Summary ---
Author Organization [employer] [facility] Address [address] [place] [address] 7 [place] [address] Care Team Providers Care Firearms Inspector Name Role Phone Jada Erickson GEM STONE CUTTER Primary Care Provider Shanda Roman FIRE AND EXPLOSION INVESTIGATOR Primary Care Provider Jas Cordero GEM STONE CUTTER Unavailable Unavailable Reason for Visit * Reason Comments Med Refill Encounter Details Date Type Department Care Team ([facility] Contact Info) Description 01/24/[address] [address] Jada Erickson FNP Pain; Cervical radiculopathy; Lumbar [...] Care Team ([facility] Contact Info) Description 07/09/2025 9:00 AM EST Clinical Support [facility] MEDICINE [address] [place] [address] Cait Velazquez, RN 07/10/2025 11:00 AM EST Office Visit [facility] MED[facility]INE [address] [place] [address] Shanda Rg NP [address] [place] [address] 10/23/2025 1:30 PM EST Office Visit [facility] OPTOMETRY [address] [place] [address] Kuldip, Oly, OD [address] [place] [address] documented as of this encounter Visit Diagnoses Diagnosis Pain Generalized pain Cervical radiculopathy Brachial neuritis or radiculitis nos Lumbar radiculopathy Thoracic or lumbosacral neuritis or radiculitis, unspecified documented in this encounter Additional Health Concerns Assessment Noted Time PHQ-9 Depression Total Score: 9 01/18/20 12:56 PM EDT documented as of this encounter Care Teams Firearms Inspector Relationship Specialty Start Date End Date Jada Erickson FNP PCP - General Family Medicine 10/27/22 06/05/23 Shanda Rg NP [address] [place] [address] PCP - General Family Medicine 06/06/23 Jas Cordero FNP [address] [place] [address] Nurse Practitioner Family Medicine 07/24/23 Aixa Ng Group Leader Semiconductor TestingGeneral Maintenance Mechanic 09/11/23 documented as of this encounter
--- OUTSIDE RECORDS SUMMARY | 2025-07-04 08:51 | XMS_ITS | Encounter Summary ---
Author Organization [employer] Address [address] [place] [address] 7t [place] [address] Care Team Providers Care Escalator Operator Name Role Phone Shanda Rg NP Primary Care Provider [phone] Jas Cordero Unavailable Unavailable Encounter Details Date Type Department Care Team ([facility] Contact Info) Description 07/12/2024 Telephone [facility] MEDICINE [address] [place], [place] [phone] Shanda Rg NP [address] [place], [place] [phone] Social History Tobacco Use Types Packs/Day Years [...] Description 07/09/2025 9:00 AM EST Clinical Support [facility] MEDICINE [address] [place] [address] Cait Velazquez RN 07/10/2025 11:00 AM EST Office Visit [facility] MED[facility]INE [address] [place] [address] Shanda Rg NP [address] [place] [address] 10/23/2025 1:30 PM EST Office Visit [facility] OPTOMETRY [address] [place] [address] Kuldip, Oly, OD [address] [place] [address] documented as of this encounter Visit Diagnoses Not on filedocumented in this encounter Additional Health Concerns Assessment Noted Time PHQ-9 Depression Total Score: 9 01/30/20 24 9:09 AM EDT documented as of this encounter Care Teams Escalator Operator Relationship Specialty Start Date End Date Shanda Rg NP [address] [place] [address] PCP - General Family Medicine 06/06/23 Jas Cordero FNP [address] [place] [address], [place] [address] Nurse Practitioner Family Medicine 07/24/23 Aixa Ng Media ProducerSupervisor Cigarette Making Department 09/11/23 documented as of this encounter
--- OUTSIDE RECORDS SUMMARY | 2025-07-04 08:51 | XMS_ITS | Encounter Summary ---
Author Organization [facility] Address [address] [place] [address] Phone Care Team Providers Care Linoleum Mechanic Name Role Phone Pcp, Unknown Primary Care Provider Unavailabl e Encounter Details Date Type Department Care Team (Late st Contact Info) Description 08/05/2020 Ancillary Orders [facility] [address] [place] [address] [place] [address] Darius Johnson DO [address] [place] [address] Palpitations Social History Tobacco Use Types Packs/Day [...] Palpitations documented in this encounter Care Teams Linoleum Mechanic Relationship Specialty Start Date End Date Pcp, Unknown PCP - General 07/06/17 documented as of this encounter Additional Source Comments The information contained in this document represents components of the legal health record. It is not the complete legal health record.[facility]
--- OUTSIDE RECORDS SUMMARY | 2025-07-04 08:51 | XMS_ITS | Encounter Summary ---
Author Organization [employer] Address [address] [place] [address] 7t [place] [address] Care Team Providers Care Satellite Installation Technician Name Role Phone Shanda Rg NP Primary Care Provider [phone] Jas Cordero Unavailable Unavailable Encounter Details Date Type Department Care Team ([facility] Contact Info) Description 08/15/2024 Telephone [facility] MEDICINE [address] [place], [place] [phone] Shanda Rg NP [address] [place], [place] [phone] Social History Tobacco Use Types Packs/Day Years [...] 07/09/2025 9:00 AM EST Clinical Support [facility] MEDICINE [address] [place] [address] Cait Velazquez RN 07/10/2025 11:00 AM EST Office Visit [facility] MED[facility]INE [address] [place] [address] Shanda Rg NP [address] [place] [address] 10/23/2025 1:30 PM EST Office Visit [facility] OPTOMETRY [address] [place] [address] Kuldip, Oly, OD [address] [place] [address] documented as of this encounter Visit Diagnoses Not on filedocumented in this encounter Additional Health Concerns Assessment Noted Time PHQ-9 Depression Total Score: 9 01/30/20 24 9:09 AM EDT documented as of this encounter Care Teams Satellite Installation Technician Relationship Specialty Start Date End Date Shanda Rg NP [address] [place] [address] PCP - General Family Medicine 06/06/23 Jas Cordero FNP [address] [place] [address], [place] [address] Nurse Practitioner Family Medicine 07/24/23 Aixa gN Welder OxyhydrogenPhysical Therapy Technician 09/11/23 documented as of this encounter
--- OUTSIDE RECORDS SUMMARY | 2025-07-04 08:51 | XMS_ITS | Encounter Summary ---
Author Organization [employer] Address [address] [place] [address] 7 [place] [address] Care Team Providers Care It Intern Name Role Phone Dre Jada Huntley SCHOOL ADMINISTRATOR Primary Care Provider Marissa Shanda Mensah NP Primary Care Provider [phone] Jas Cordero Unavailable Unavailable Reason for Visit * Reason Comments Med Refill Encounter Details Date Type Department Care Team (Late st Contact Info) Description 10/31/2022 Refill [facility] MED[facility]INE [address] [place] [address] Jas Cordero FNP Major depressive disorder with [...] 11/02/2022 11:52 AM EST FYI, Pt had DIGITAL CONTENT SPECIALIST RV today. Urine/Pill count WNL. Bp 152/108, stated he had taken his blood pressure medication this morning. documented in this encounter Plan of Treatment Upcoming Encounters Date Type Department Care Team (Late st Contact Info) Description 07/09/2025 9:00 AM EST Clinical Support [facility]INE [address] [place] [address] Cait Velazquez RN 07/10/2025 11:00 AM EST Office Visit [facility] [address] [place] [address] Shanda Rg NP [address] [place] [address] 10/23/2025 1:30 PM EST Office Visit [facility] OPTOMETRY [address] [place] [address] KuldipOly lyons, OD [address] [place] [address] documented as of this encounter Visit Diagnoses Diagnosis Major depressive disorder with psychotic features (CMS/HCC) (HCC) documented in this encounter Additional Health Concerns Assessment Noted Time PHQ-9 Depression Total Score: 9 09/27/19 23 9:22 AM EST documented as of this encounter Care Teams It Intern Relationship Specialty Start Date End Date Jada Erickson FNP PCP - General Family Medicine 10/27/22 06/05/23 Shanda Rg NP [address] [place] [address] PCP - General Family Medicine 06/06/23 Jas Cordero FNP [address] [place] [address] Nurse Practitioner Family Medicine 07/24/23 Aixa Ng Welder 2Nd ShiftAmbulatory Analyst 09/11/23 documented as of this encounter
--- OUTSIDE RECORDS SUMMARY | 2025-07-04 08:51 | XMS_ITS | Clinical Summary ---
Author Organization [facility] Address [address] [place] [address] [place] [address] Phone Care Team Providers Care Joy Operator Helper Name Role Phone Pcp, Unknown Primary Care [...] file Medical Devices Not on file Insurance [facility] CAREPLUS Member Subscriber Plan / Payer (Ef fective 2017-Present) Name:Davidson Gillespie Relation to Subscriber:Self Name:Davidson Gillespie Payer ID:[id number] Group ID:[id number] Type:Medicaid Address: [address] [facility] C3 ACO [facility] CAREPLUS Member Subscriber Plan / Payer (Ef fective 2017-Present) Name:Davidson Gillespie Relation to Subscriber:Self Name:Davidson Gillespie Payer ID:[id number] Group ID:[id number] Type:Medicaid Address: [address] C3 ACO [facility] CAREPLUS Member Subscriber Plan / Payer (Ef fective 2017-Present) Name:Davidson Gillespie Relation to Subscriber:Self Name:Davdison Gillespie Payer ID:[id number] Group ID:[id number] Type:Medicaid Address: [address] C3 ACO [facility] CAREPLUS Member Subscriber Plan / Payer (Ef fective 2017-Present) Name:Davidson Gillespie Relation to Subscriber:Self Name:Davidson Gillespie Payer ID:[id number] Group ID:[id number] Type:Medicaid Address: [address] C3 ACO [facility] CAREPLUS Member Subscriber Plan / Payer (Ef fective 2017-Present) Name:Davidson Gillespie Relation to Subscriber:Self Name:Davidson Gillespie Payer ID:[id number] Group ID:[id number] Type:Medicaid Address: [address] [place] [address] [place] [address] CAREPLUS Member Subscriber Plan / Payer (Ef fective 2017-Present) Name:Davidson Gillespie Relation to Subscriber:Self Name:Davidson Gillespie Payer ID:[id number] Group ID:[id number] Type:Medicaid Address: [address] C3 ACO [facility] CAREPLUS Member Subscriber Plan / Payer (Ef fective 2017-Present) Name:Davidson Gillespie Relation to Subscriber:Self Name:Davidson Gillespie Payer ID:[id number] Group ID:[id number] Type:Medicaid Address: [address] [place], [place] [address]PLUS Member Subscriber Plan / Payer (Ef fective 2017-Present) Name:Davidson Gillespie Relation to Subscriber:Self Name:Davidson Gillespie Payer ID:[id number] Group ID:[id number] Type:Medicaid Address: [address] C3 ACO [facility] CAREPLUS C3 ACO Care Teams Joy Operator Helper Relationship Specialty Start Date End Date Pcp, Unknown PCP - General 07/06/17 Additional Source Comments The information contained in this document represents components of the legal health record. It is not the complete legal health record.[facility]
--- OUTSIDE RECORDS SUMMARY | 2025-07-04 08:51 | XMS_ITS | Encounter Summary ---
Author Organization [employer] Address [address] [place] [address] [address] [place] [address] Care Team Providers Care Property Portfolio Officer Name Role Phone Shanda Rg NP Primary Care Provider [phone] Jas Cordero Unavailable Unavailable Reason for Visit * Reason Comments Med Refill Encounter Details Date Type Department Care Team ([facility] st Contact Info) Description 06/08/2023 Refill [facility] MEDICINE [address] [place] [address] Jada Erickson FNP Seasonal allergic rhinitis, unspecified [...] Clinical Support [facility] [address] [place] [address] Cait Velazquez RN 07/10/2025 11:00 AM EST Office Visit [facility] [address] [place] [address] Shanda Rg NP [address] [place] [address] 10/23/2025 1:30 PM EST Office Visit [facility] OPTOMETRY [address] [place] [address] Kuldip, Oly, OD [address] [place] [address] documented as of this encounter Visit Diagnoses Diagnosis Seasonal allergic rhinitis, unspecified trigger documented in this encounter Additional Health Concerns Assessment Noted Time PHQ-9 Depression Total Score: 10 023 9:23 AM EDT documented as of this encounter Care Teams Property Portfolio Officer Relationship Specialty Start Date End Date Shanda Rg NP [address] [place] [address] PCP - General Family Medicine 06/06/23 Jas Cordero FNP [address] [place] [address] Nurse Practitioner Family Medicine 07/24/23 Aixa Ng Crm ManagerInstallation And Service Technician 09/11/23 documented as of this encounter
--- OUTSIDE RECORDS SUMMARY | 2025-07-04 08:51 | XMS_ITS | Clinical Summary ---
Author Organization [facility] Address [address] [place] [address] Care Team Providers Care Pocket And Pulley Machine Operator Name Role Phone Unavailable Primary Care [...] capsuleIndicati ons:Major depressive disorder with psychotic features Take 1 Capsule by mouth once daily with breakfast 90 Capsule 4 Active venlafaxine XR (EFFEXOR XR) 150 mg 24 hr capsuleIndicati ons:Major depressive disorder with psychotic features Take 1 Capsule by mouth once daily [...] tabletIndicatio ns:Major depressive disorder with psychotic features Take 1 Tablet by mouth every morning [...] with tizanidine and tramadol, and gabapentin RMV placard completed and using MRI lumbar spine May 2022 that showed slight lumbar dextrocurvature with trace lrkl-cl-yfddl lateral lithesis at L4-L5. Trace anterolithesis at [...] depressive disorder with psychotic feature s 08/16/2022 Overview (05/09/2024): Last Assessment & Plan: [...] patient will be transferred to new [facility] Psychiatric Prescriber. Pt is aware that those appointments will be via televisit, and that the provider is not an [facility] employee. He gives verbal consent [...] 2017 Type 2 diabetes mellitus without complication Overview (05/09/2024): Education provided re: therapeutic lifestyle [...] series) 05/11/2023 04/13/2023 Hemoglobin A1c 05/05/2024 11/03/2023, 0808/2022, 06/08/2022, Additional history exists Alcohol and Drug Screen 08/28/2024 Lipid Screening 11/08/2024 11/09/2023 Urn-[id number]-01 ( season) 2025 09/02/2022, 2021, 12/07/2020, Additional history exists Imm-Influenza (#1) 2025 07/10/2020, 0 05/16/2018, 05/19/2016 Imm-DTaP/Tdap/Td (2 - Td or Tdap) 07/03/2029 019 Imm-Zoster, Recombinant Completed 09/23/2020, 07/10 Imm-Pneumococcal 50+ Completed 04/13/2023, 10/26/2021, 07/03/2019 HIV Screening Completed 11/09/2023, 11/09/2023 Hepatitis C Screening Completed 11/09/2023 Insurance [place] MEDICAID [facility]
--- OUTSIDE RECORDS SUMMARY | 2025-07-04 08:51 | XMS_ITS | Encounter Summary ---
Author Organization [employer] [facility] Address [address] [place] [address] [place], [place] [address] Care Team Providers Care Hydrogen Treater Name Role Phone Carmen Faust MD Primary Care Provider Cali Lundberg Primary Care Provider Jada Gomez CT TECHNOLOGIST Primary Care Provider Shanda Roman NP Primary Care Provider [phone] Jas Cordero Unavailable Unavailable Reason for Visit * Reason Comments Med Refill Encounter Details Date Type Department Care Team (Late st Contact Info) Description 09/01/2022 Refill [facility] [address] [place] [address] Jas Cordero FNP Social History Tobacco Use [...] Clinical Support [facility] [address] [place] [address] Cait Velazquez RN 07/10/2025 11:00 AM EST Office Visit [facility] [address] [place] [address] Shanda Rg NP 230 [place] [address] 10/23/2025 1:30 PM EST Office Visit [facility] OPTOMETRY [address] [place] [address] Oly Christiansen, OD 230 [place] [address] documented as of this encounter Visit Diagnoses Not on filedocumented in this encounter Additional Health Concerns Assessment Noted Time PHQ-9 Depression Total Score: 12 022 9:34 AM EST documented as of this encounter Care Teams Hydrogen Treater Relationship Specialty Start Date End Date Carmen Faust MD PCP - General Family Medicine 02/17/20 09/20/22 Cali Steward FNP PCP - General Family Medicine 09/21/22 10/26/22 Jada Erickson FNP PCP - General Family Medicine 10/27/22 06/05/23 Shanda Rg NP [address] [place] [address] PCP - General Family Medicine 06/06/23 Jas Cordero FNP [address] [place] [address] Nurse Practitioner Family Medicine 07/24/23 Aixa Ng Mining Plant OperatorCombination Presser 09/11/23 documented as of this encounter
--- OUTSIDE RECORDS SUMMARY | 2025-07-04 08:51 | XMS_ITS | Encounter Summary ---
Author Organization [employer] Address [address] [place] [address] 7 [place] [address] Care Team Providers Care Delivery Room Clerk Name Role Phone Shanda Rg NP Primary Care Provider [phone] Jas Cordero Unavailable Unavailable Reason for Visit * Reason Comments Med Refill Encounter Details Date Type Department Care Team (Late st Contact Info) Description 09/09/2023 Refill [facility] MEDICINE [address] [place] [address] NameJerardo MD 230 [place] [address] Radiculopathy, cervical region Social History Tobacco Use [...] Description 07/09/2025 9:00 AM EST Clinical Support [facility] MEDICINE [address] [place] [address] Cait Velazquez RN 07/10/2025 11:00 AM EST Office Visit [facility] MED[facility]INE [address] [place] [address] Shanda Rg NP [address] [place] [address] 10/23/2025 1:30 PM EST Office Visit [facility] OPTOMETRY [address] [place] [address] Oly Christiansen OD [address] [place] [address] documented as of this encounter Visit Diagnoses Diagnosis Radiculopathy, cervical region Brachial neuritis or radiculitis nos documented in this encounter Additional Health Concerns Assessment Noted Time PHQ-9 Depression Total Score: 4 08/01/20 23 11:20 AM EST documented as of this encounter Care Teams Delivery Room Clerk Relationship Specialty Start Date End Date Shanda Rg NP 230 [place] [address] PCP - General Family Medicine 06/06/23 Jas Cordero FNP [address] [place] [address] Nurse Practitioner Family Medicine 07/24/23 Aixa Ng Inventory TakerCook Starch 09/11/23 documented as of this encounter
--- OUTSIDE RECORDS SUMMARY | 2025-07-04 08:51 | XMS_ITS | Encounter Summary ---
Author Organization [employer] Address [address] [place] [address] 7 [place] [address] Care Team Providers Care Rn Residential Name Role Phone Shanda Rg NP Primary Care Provider [phone] Jas Cordero Unavailable Unavailable Reason for Visit * Reason Onset Date Comments Med Refill 03/25/2024 Encounter Details Date Type Department Care Team (Late st Contact Info) Description 03/25/2024 Telephone [facility] MEDICINE [address] [place] [address] Shanda Rg NP [address] [place] [address] Med Refill Social History Tobacco Use Types [...] qty - 112 for 28 dayssupply. From [facility] pharmacy. * Telephone Encounter - Jean Rosario - 03/25/2024 1:38 PM EDT TC from pt requesting medication refill. Medications needing refill: traMADol (Ultram) 50 MG tablet To be sent to: [facility] Pharmacy documented in this encounter Plan of Treatment Upcoming Encounters Date Type Department Care Team (Late st Contact Info) Description 07/09/2025 9:00 AM EST Clinical Support [facility] MEDICINE [address] [place] [address] Cait Velazquez RN 07/10/2025 11:00 AM EST Office Visit [facility] [address] [place] [address] Shanda Rg NP [address] [place] [address] 10/23/2025 1:30 PM EST Office Visit [facility] OPTOMETRY [address] [place] [address] Oly Christiansen, OD [address] [place] [address] documented as of this encounter Visit Diagnoses Not on filedocumented in this encounter Additional Health Concerns Assessment Noted Time PHQ-9 Depression Total Score: 9 01/30/20 24 9:09 AM EDT documented as of this encounter Care Teams Rn Residential Relationship Specialty Start Date End Date Shanda Rg NP [address] [place], [place] [phone] PCP - General Family Medicine 06/06/23 Jas Cordero FNP [address] [place] [address] Nurse Practitioner Family Medicine 07/24/23 Aixa Ng Contracts ManagerNightclub Manager 09/11/23 documented as of this encounter
--- OUTSIDE RECORDS SUMMARY | 2025-07-04 08:51 | XMS_ITS | Encounter Summary ---
Author Organization [employer] Address [address] [place] [address] 7 [place] [address] Care Team Providers Care Fork Operator Name Role Phone Jada Erickson UTILITIES GROUND WORKER Primary Care Provider Shadna Roman PSYCHIATRIC NURSING ASSISTANT Primary Care Provider [phone] Jas Cordero UTILITIES GROUND WORKER Unavailable Unavailable Reason for Visit * Reason Comments Med Refill Encounter Details Date Type Department Care Team (Late st Contact Info) Description 05/30/[address] [facility] MEDICINE [address] [place] [address] Jada Erickson FNP Pain; Cervical radiculopathy; Lumbar [...] 9:00 AM EST Clinical Support [facility] MEDICINE [address] [place] [address] Cait Velazquez, RN 07/10/2025 11:00 AM EST Office Visit [facility] MEDICINE [address] [place] [address] Shanda Rg NP [address] [place] [address] 10/23/2025 1:30 PM EST Office Visit [facility] OPTOMETRY [address] [place] [address] Oly Christiansen, OD [address] [place] [address] documented as of this encounter Visit Diagnoses Diagnosis Pain Generalized pain Cervical radiculopathy Brachial neuritis or radiculitis nos Lumbar radiculopathy Thoracic or lumbosacral neuritis or radiculitis, unspecified documented in this encounter Additional Health Concerns Assessment Noted Time PHQ-9 Depression Total Score: 0 04/13/20 9:39 AM EDT documented as of this encounter Care Teams Fork Operator Relationship Specialty Start Date End Date Jada Erickson FNP PCP - General Family Medicine 10/27/22 06/05/23 Shanda Rg NP [address] [place] [address] PCP - General Family Medicine 06/06/23 Jas Cordero FNP [address] [place] [address] Nurse Practitioner Family Medicine 07/24/23 Aixa Ng Coping Machine AssemblerLandscape And Yardwork Laborer 09/11/23 documented as of this encounter
--- OUTSIDE RECORDS SUMMARY | 2025-07-04 08:51 | XMS_ITS | Encounter Summary ---
Author Organization [facility] Address [address] [place] [address] Phone Care Team Providers Care Automobile Carpets Molder Name Role Phone Pcp, Unknown Primary Care Provider Unavailabl e Encounter Details Date Type Department Care Team (Late st Contact Info) Description 08/05/2020 Procedure [facility] [address] [place] [address] [place] [address] Social History Tobacco Use Types Packs/Day Years [...] on filedocumented in this encounter Care Teams Automobile Carpets Molder Relationship Specialty Start Date End Date Pcp, Unknown PCP - General 07/06/17 documented as of this encounter Additional Source Comments The information contained in this document represents components of the legal health record. It is not the complete legal health record.[facility]
--- OUTSIDE RECORDS SUMMARY | 2025-07-04 08:51 | XMS_ITS | Encounter Summary ---
Author Organization [employer] Address [address] [place] [address] 7 [place] [address] Care Team Providers Care Mold Insert Changer Name Role Phone Shanda Rg NP Primary Care Provider [phone] Jas Cordero Unavailable Unavailable Reason for Visit * Reason Comments Med Refill Encounter Details Date Type Department Care Team (Late st Contact Info) Description 08/01/2023 Refill [facility] MEDICINE [address] [place] [address] Lianet Mae FNP [address] [place] [address] Pain; Cervical radiculopathy; Lumbar radiculopathy Social History [...] EST Clinical Support [facility] MEDICINE [address] [place] [address] Cait Velazquez RN 07/10/2025 11:00 AM EST Office Visit [facility] MED[facility]INE [address] [place] [address] Shanda Rg NP [address] [place] [address] 10/23/2025 1:30 PM EST Office Visit [facility] OPTOMETRY [address] [place] [address] Oly Christiansen OD [address] [place] [address] documented as of this encounter Visit Diagnoses Diagnosis Pain Generalized pain Cervical radiculopathy Brachial neuritis or radiculitis nos Lumbar radiculopathy Thoracic or lumbosacral neuritis or radiculitis, unspecified documented in this encounter Additional Health Concerns Assessment Noted Time PHQ-9 Depression Total Score: 4 08/01/20 23 11:20 AM EST documented as of this encounter Care Teams Mold Insert Changer Relationship Specialty Start Date End Date Shanda Rg NP [address] [place] [address] PCP - General Family Medicine 06/06/23 Jas Cordero FNP [address] [place] [address] Nurse Practitioner Family Medicine 07/24/23 Aixa Ng Master PilotSheet Metal Smith 09/11/23 documented as of this encounter
--- OUTSIDE RECORDS SUMMARY | 2025-07-04 08:51 | XMS_ITS | Encounter Summary ---
Author Organization [employer] Address [address] [place] [address] 7 [place] [address] Care Team Providers Care Permastone Mechanic Name Role Phone Shanda Rg NP Primary Care Provider [phone] Jas Cordero Unavailable Unavailable Reason for Visit * Reason Onset Date Comments Appointment Request 09/25/2023 Encounter Details Date Type Department Care Team ([facility] st Contact Info) Description 09/25/2023 Telephone [facility] MEDICINE [address] [place] [address] Shanda Rg NP [address] [place], [place] [phone] Appointment Request Social History Tobacco Use Types [...] regarding existing conditions. Please contact pt at [phone]. Botswanan speaking documented in this encounter Plan of Treatment Upcoming Encounters Date Type Department Care Team (Late st Contact Info) Description 07/09/2025 9:00 AM EST Clinical Support [facility] MEDICINE [address] [place] [address] Cait Velazquez RN 07/10/2025 11:00 AM EST Office Visit [facility] MED[facility]INE [address] [place] [address] Shanda Rg NP [address] [place] [address] 10/23/2025 1:30 PM EST Office Visit [facility] OPTOMETRY [address] [place] [address] Oly Christiansen, OD [address] [place] [address] documented as of this encounter Visit Diagnoses Not on filedocumented in this encounter Additional Health Concerns Assessment Noted Time PHQ-9 Depression Total Score: 4 08/01/20 23 11:20 AM EST documented as of this encounter Care Teams Permastone Mechanic Relationship Specialty Start Date End Date Shanda Rg NP [address] [place] [address] PCP - General Family Medicine 06/06/23 Jas Cordero FNP [address] [place] [address] Nurse Practitioner Family Medicine 07/24/23 Aixa Ng Engineering AssistantUtilities Ground Worker 09/11/23 documented as of this encounter
--- OUTSIDE RECORDS SUMMARY | 2025-07-04 08:51 | XMS_ITS | Encounter Summary ---
Author Organization [facility] Address [address] [facility] [address] [place] [address] Phone Care Team Providers Care Rn Pain Management Name Role Phone Pcp, Unknown Primary Care Provider Unavailabl e Encounter Details Date Type Department Care Team (Late st Contact Info) Description 07/06/2017 Ancillary Orders [facility] [address] [place] [address] [place] [address] Darius Johnson DO [address] [place] [address] Palpitations Social History Tobacco Use Types Packs/Day [...] Palpitations documented in this encounter Care Teams Rn Pain Management Relationship Specialty Start Date End Date Pcp, Unknown PCP - General 07/06/17 documented as of this encounter Additional Source Comments The information contained in this document represents components of the legal health record. It is not the complete legal health record.[facility]
--- OUTSIDE RECORDS SUMMARY | 2025-07-04 08:51 | XMS_ITS | Clinical Summary ---
Author Organization [employer] Address [address] [place] [address] 7 [place] [address] Care Team Providers Care Level Vial Marker Name Role Phone Shanda Rg NP Primary Care Provider [phone] Jas Cordero Unavailable Unavailable Allergies No known [...] hours. 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 1 kit 10/30/19 25 Active metFORMIN (Glucophage) 500 MG tabletIndicati ons:Type 2 diabetes mellitus without complication, without long-term current use of insulin (HCC) TAKE 1 TABLET BY MOUTH EVERY MORNING WITH A MEAL 90 tablet 1 01/15/20 25 Active D3 Super Strength 50 MCG (1999 UT) capsuleIndicat ions:Vitamin D deficiency TAKE 1 CAPSULE BY MOUTH EVERY MORNING 90 capsule 1 01/15/20 25 Active losartan (Cozaar) 100 MG tablet TAKE 1 TABLET BY MOUTH EVERY MORNING 90 tablet 1 01/16/20 25 Active folic acid (Folvite) 1 MG tabletIndicati ons:Psoriasis TAKE 1 TABLET BY MOUTH EVERY MORNING 90 tablet 1 03/17/20 25 Active atorvastatin (Lipitor) 80 MG tablet TAKE 1 TABLET BY MOUTH AT BEDTIME 90 tablet 1 03/17/20 25 Active Alcohol Swabs (Alcohol Prep) 70 % padsIndication s:Type 2 diabetes mellitus without complication, unspecified whether 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 112 tablet 06/09/20 25 2024 Active gabapentin (Neurontin) 300 MG capsuleIndicat ions:Radiculop athy, cervical region TAKE 1 CAPSULE BY MOUTH TWICE DAILY IN THE MORNING AND AT NOON and TAKE 2 CAPSULES BY MOUTH EVERY DAY AT BEDTIME 120 capsule 06/26/20 25 Active traMADol (Ultram) 50 MG tabletIndicati ons:Chronic pain of both knees TAKE 2 TABLETS BY MOUTH EVERY 12 HOURS NEEDED FOR SEVERE PAIN 112 tablet 05/12/20 25 2024 Discontinued(R eorder (will not trigger notification to Pharmacy)) gabapentin (Neurontin) 300 MG capsuleIndicat ions:Radiculop athy, cervical region TAKE 1 CAPSULE BY MOUTH TWICE DAILY IN THE MORNING AND AT NOON and TAKE 2 CAPSULES BY MOUTH EVERY DAY AT BEDTIME 120 capsule 05/20/20 25 2024 Discontinued(R eorder (will not trigger notification to Pharmacy)) Active Problems Problem Noted Date Diagnosed Date RUQ abdominal pain 06/09/2025 Assessment & Plan (06/09/2025 2:00 PM EDT): Rule out cholecystitis, will order labs. Ordered abdominal ultrasound Gave him information regarding low-fat diet, increase water intake Tylenol as needed Reconsult as needed worsening abdominal pain, nausea, vomiting, fever or icterus. 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 Trace anterolithesis at [...] Major depressive disorder with psychotic feature s ([facility]/HCC) 08/16/2022 Assessment & Plan (01/30/2024 10:01 AM [...] retiring patient will be transferred to new [facility] Psychiatric Prescriber. Pt is aware that those appointments will be via televisit, and that the provider is not an [facility] employee. He gives verbal consent to [...] Amlodipine 5 mg daily Assessment & Plan (06/09/2025 2:01 PM EDT): Uncontrolled today, probably related to pain. Reminded patient to take medications on a daily basis and follow-up with PCP Assessment & Plan (05/02/2025 2:36 PM EDT): [...] socket 12/16/2016 023 Dizziness and giddiness 10/28/2016 09/0 12/2024 Backache 08/30/2016 09/21/2022 Encounters Date Type Department Care Team Description 06/26/2025 Refill [facility] [address] [place] [address] Shanda Rg NP Radiculopathy, cervical region 06/10/2025 Telephone [facility] [address] [place] [address] Annabel Villegas MD stable lab letter 06/09/2025 1:20 PM EDT Office Visit [facility] [address] [place] [address] Annabel Villegas MD RUQ abdominal pain (Primary Dx); Primary hypertension 06/09/2025 Results Follow-Up [address] [address] Annabel Villegas MD CBC auto differential, Hepatic Function Panel, POCT Urinalysis 06/09/2025 Travel 06/09/[address] [address] Shanda Rg NP Nurse Triage 06/09/2025 Refill [facility] [address] [place] [address] Shanda Rg NP Chronic pain of both knees 06/02/2025 Telephone [facility] [address] [place] [address] Shanda Rg NP Care Coordination (ICP Care Plan) 05/19/2025 Refill [facility] [address] [place] [address] Shanda Rg NP Radiculopathy, cervical region 05/16/2025 Results Follow-Up [address] [address] Shanda Rg NP Cyclic Citrullinated Peptide (CCP) Antibody (IgG), Rheumatoid Factor, C-reactive Protein, Sed Rate by Modified Westergren 05/09/[address] [address] Shanda Rg NP Chronic pain of both knees 05/03/[address] [address] Shanda Rg NP Type 2 diabetes mellitus without complication, unspecified whether 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 insulin use ([facility]) 04/29/2025 Orders Only GENERIC EXTERNAL DATA DEPARTMENT Provider, Generic External Data 04/25/2025 3:15 PM EDT Office Visit [address] [address] Shanda Rg NP Generalized joint pain (Primary Dx); Primary hypertension 04/25/2025 Travel 04/22/[address] [address] Shanda Rg NP Nurse Triage 04/14/2025 Refill [facility] [address] [place] [address] Shanda Rg NP Radiculopathy, cervical region 04/04/2025 Refill [facility] [address] [place], [place] [phone] Cait Velazquez, guardian family member pain of both knees from Last 3 [...] Sign Reading Time Taken Comments Blood Pressure 141/96 06/09/2025 1:05 PM EDT Pulse 77 06/09/2025 1:05 PM EDT Temperature 36.9 C (98.4 F) 06/09/2025 1:05 PM EDT Respiratory Rate 26 06/09/2025 1:05 PM EDT Oxygen Saturation 93% 06/09/2025 1:05 PM EDT Inhaled Oxygen Concentration - - Weight 98.9 kg (218 lb) 06/09/2025 1:05 PM EDT Height 167.6 cm (5' 6 ) 06/09/2025 1:05 PM EDT Body Mass Index 35.19 06/09/2025 1:05 PM EDT Plan of Treatment Upcoming Encounters Date Type Department Care Team (Late st Contact Info) Description 07/09/2025 9:00 AM EST Clinical Support [facility] [address] [place] [address] Cait Velazquez, RN 07/10/2025 11:00 AM EST Office Visit [facility] [address] [place] [address] Shanda Rg NP [address] [place] [address] 10/23/2025 1:30 PM EST Office Visit [facility] [address] [place] [phone] Oly Christiansen, OD [address] [place] [address] Health Maintenance Due Date Last Done Comments CT Colonography 1965 FIT DNA/Cologuard 1965 FIT 1965 FOBT 1965 Sigmoidoscopy 1965 Hepatitis B Vaccines (2 of 3 - 19+ 3-dose series) 05/11/2023 04/13/2023 COVID-19 Vaccine (2024- season) 2025 09/02/2022, 2021, 12/07/2020, Additional history [...] 01/06/2025 SDOH Screening 03/07/2026 03/07/2025 Tobacco Screening 06/09/2026 06/09/2025 Colonoscopy 07/12/2026 07/12/2021 Colorectal Cancer Screening 07/12/2026 [...] Procedure Name Priority Date/Time Associated Diagnosis Comments HEPATIC FUNCTION PANEL Routine 1:58 PM EDT RUQ abdominal pain CBC WITH AUTO DIFFERENTIAL Routine 06/09/2025 1:58 PM EDT RUQ abdominal pain POCT URINALYSIS DIPSTICK Routine 06/09/2025 1:41 PM EDT RUQ abdominal pain METHYLMALONIC ACID Routine 04/29/2025 9: 18 AM [...] 04/25/2025 4:10 PM EDT Generalized joint pain HEMOGLOBIN A1C Routine 11/19/2024 8:55 AM EDT [...] Recently Relevant to Health Maintenance Results * CBC auto differential (06/09/2025 1:58 PM EDT) White Blood Count 9.8 4.8 - 10.8 X10*3/uL [facility] Red Blood Count 5.23 4.60 - 5.80 X10*6/uL [facility] Hemoglobin 14.7 14.0 - 18.0 g/dl [facility] Hematocrit 45.7 42.0 - 52.0 % [facility] Mean Corpuscular Volume 87.4 80.0 - 98.0 fL [facility] Mean Corpuscular Hemoglobin 28.1 27.0 - 33.0 pg [facility] Mean Corpuscular HGB Conc 32.2 31.0 - 36.0 g/dl [facility] Red Cell Distribution Width 13.0 11.0 - 16.0 % [facility] Platelet Count 192 160 - 400 X10*3/uL [facility] Mean Platelet Volume 11.6 9.4 - 12.4 fL [facility] Neutrophils Percent Auto 55.3 45 - 73 % [facility] Imm Gran Pct Auto 0.3 0.0 - 0.4 % [facility] Lymphocytes Percent Auto 35.1 20 - 40 % [facility] Monocytes Percent Auto 6.9 2 - 11 % [facility] Eosinophils Percent Auto 1.7 0 - 4 % [facility] Basophils Percent Auto 0.7 0 - 2 % [facility] NRBC Pct Auto 0.0 0.0 - 0.2 /100WBC [facility] Neutrophils Absolute Auto 5.4 2.0 - 8.3 x10*3/uL [facility] Imm Gran Abs Auto 0.03 0.00 - 0.03 X10*3/uL [facility] Lymphocytes Absolute Auto 3.4 1.2 - 4.9 X10*3/uL [facility] Monocytes Absolute Auto 0.7 0.1 - 1.2 X10*3/uL [facility] Eosinophils Absolute Auto 0.2 0.0 - 0.4 X10*3/uL [facility] Basophils Absolute Auto 0.1 0.0 - 0.2 X10*3/uL [facility] NRBC Abs Auto 0.000 0.0 - 0.012 X10*3/uL [facility] Blood Venous blood specimen / Unknown 06/09/2025 1:58 PM EDT 06/09/2025 3:56 PM EDT us Annabel Villegas MD LAB BLOOD ORDERABLES Fin al Result [facility] [address] [place] [phone] * Hepatic Function Panel (06/09/2025 1:58 PM EDT) Bilirubin, Total 0.3 0.0 - 1.0 mg/dL [facility] Bilirubin, Direct 0.1 0.0 - 0.5 mg/dL [facility] Aspartate Amino Transferase 21 5 - 37 U/L [facility] Alanine Aminotransferase 31 0 - 40 U/L [facility] Total Protein 7.7 6.5 - 8.0 g/dL [facility] Albumin Level 4.6 3.5 - 5.0 g/dL [facility] Alkaline Phosphatase 116 39 - 117 U/L [facility] Blood Venous blood specimen / Unknown 06/09/2025 1:58 PM EDT 06/09/2025 3:56 PM EDT Annabel Villegas MD LAB BLOOD ORDERABLES Fin al Result [facility] [address] [place] [phone] * POCT Urinalysis (06/09/2025 1:41 PM EDT) Color, UA Yellow Clarity, UA Clear Glucose, UA Negative Bilirubin, UA Negative Ketones, UA Negative Spec Grav, UA 1.010 Blood, UA Negative Negative, None Detected pH, UA 6.0 Protein, UA Negative Urobilinogen, UA 0.2 Leukocytes, UA Negative Negative, Rare, Trace Nitrite, UA Negative Negative, None Detected Appearance, UA clear QC Media Lot # [id number] Lot# Expiration Date Urine (Urine, Random) 06/09/2025 1:41 PM EDT Annabel Villegas MD POINT OF CARE TEST ENTER /EDIT ORDERABLES Final Result * Vitamin B12 (Cobalamin) and Folate Panel, Serum (04/29/2025 9:18 AM EDT) Vitamin B12 564 200 - 900 pg/mL [facility] Comment:NORMAL 200-900 PG/ML INDETERMINATE 160-199 PG/ML DEFICIENT < 160 PG/ML Folate 12.9 > or = 4.0 ng/mL [facility] Comment:Reference Values:> o r = 4.0 ng/mL< 4.0 ng/mL suggests folate deficiency Methotrexate, aminopterin and folinic acid(leucovorin) are chemotherapeutic agents whose molecularstructures are similar to folate; therefore, the Architectfolate assay cannot be used for patients using these drugs. 04/29/2025 9:18 AM EDT 04/29/2025 9:18 AM EDT us Generic External Data Provider LAB BLOOD ORDERAB LES Final Result [facility] [address] [place] [phone] * Methylmalonic Acid (04/29/2025 9:18 AM EDT) Methylmalonic Acid 165 55 - 335 nmol/L [facility] Comment: Serum methylmalonic acid (MMA) [...] outcomes,such as neural tube defects and intrauterine growthrestriction.[employer] utilized Multi-Modal Decomposition(MMD) analysis to establish first and second trimester-specific MMA reference intervals in , as givenbelow:MMA, First trimester (<13 wks gestation): 58-167 nmol/LMMA, Second trimester (13-23 wks gestation):63-241 nmol/LThis test was developed and its analytical performancecharacteristics have been determined by [employer]. It has not been cleared or approved by theFDA. This assay has been validated pursuant to the CLIAregulations and is used for clinical purposes.THIS TEST WAS PERFORMED AT:[facility] [place] [address]HESCBIOZANA THAO MD,PHD 04/29/2025 9:18 AM EDT 04/29/2025 9:18 AM EDT Generic External Data Provider LAB BLOOD ORDERAB LES Final Result Performing Organization Address [facility] Co de Phone Number [facility] [address] [place] [phone] * Homocysteine (04/29/2025 9:18 AM EDT) Homocysteine 8.7 < or = 15.2 umol/L [facility] Comment:Homocysteine is incr eased by functional deficiency offolate or vitamin B12. Testing for methylmalonic aciddifferentiates between these deficiencies. Other causesof increased homocysteine include renal failure, folateantagonists such as methotrexate and phenytoin, andexposure to nitrous oxide.Carmela Licona et al., [employer] Med. 1999;131(5):331-9.THIS TEST WAS PERFORMED AT:[facility] [place] [id number] PALACIO MD 04/29/2025 9:18 AM EDT 04/29/2025 9:18 AM EDT Generic External Data Provider LAB BLOOD ORDERAB LES Final Result Performing Organization Address [facility] Co de Phone Number [facility] [address] [place] [phone] * Cyclic Citrullinated Peptide (CCP) Antibody (IgG) (04/25/2025 4:10 PM EDT) Cyclic Citrullinated Peptide <16 UNITS [facility] Comment:Reference RangeNegat wally: <20Weak Positive: 20-39Moderate Positive: 40-59Strong Positive: >59THIS TEST WAS PERFORMED AT:[facility] [address] [id number] PALACIO MD Blood Venous blood specimen / Unknown 04/25/2025 4:10 PM EDT 04/25/2025 5:[address] [facility] BLO[facility] ORDERABLES Final Resu lt Performing Organization Address [facility] Co de Phone Number [facility] [address] [place] [phone] * Sed Rate by Modified Adairergren (04/25/2025 4:10 PM EDT) Erythrocyte Sedimentation Rate 9 0 - 15 MM/HR [facility] Comment:Patients with polycy themia and many hemoglobin abnormalitiesmay have depressed sed rates whereas patients with anemiamay have elevated sed rates. Blood Venous blood specimen / Unknown 04/25/2025 4:10 PM EDT 04/25/2025 5:25 PM EDT [facility] LAB BLOOD ORDERABLES Final Resu lt Performing Organization Address [facility] de Phone Number [facility] [address] [place] [phone] * Rheumatoid Factor (04/25/2025 4:10 PM EDT) [facility] Rheumatoid Factor <13.0 <15.0 IU/mL [facility] Blood Venous blood specimen / Unknown 04/25/2025 4:10 PM EDT 04/25/2025 5:23 PM EDT [facility] [employer] MANUFACTURING TECHNICIAN LAB BLOOD ORDERABLES Final Resu lt Performing Organization Address [facility] Co de Phone Number [facility] [address] [place] [phone] * (ABNORMAL) C-reactive Protein (04/25/2025 4:10 PM EDT) Pathologist [facility] C Reactive Protein 1.71(H) < or = 0.50 mg/dL [facility] Blood Venous blood specimen / Unknown 04/25/2025 4:10 PM EDT 04/25/2025 5:23 PM EDT Shanda Rg OPTICAL MANUFACTURING TECHNICIAN LAB BLOOD ORDERABLES Final Resu lt Performing Organization Address [facility]/ZIP Co de Phone Number [facility] [address] [place] [phone] * (ABNORMAL) Hemoglobin A1c (11/19/2024 8:55 AM EDT) Hemoglobin A1c 6.8(H) <6.0 % [facility] Comment:Hemoglobin A1C Refer ence Range Adults: 4.8 - 6.0 % Non diabetic: < 6.0 % Goal: < 7.0 %Additional Action Suggested: > 8.0 %Note: Hemoglobin A1c results are invalid for patients with abnormal amounts of HbF. Blood transfusions may impact the HbA1c concentration in the patient sample. Estimated Average Glucose 148 mg/dL [facility] Comment:eAG = Estimated ave rage glucose which is %A1C expressed asaverage glucose, using the formula of the F5P-GrxerrtVbkujcr Glucose study (ADAG), Diabetes Care, Vol.31,#8,Mar. 2007 11/19/2024 8:55 AM EDT 11/19/2024 8:55 AM EDT us Generic External Data Provider LAB BLOOD ORDERAB LES Final Result Performing Organization Address [facility]/ZIP Co de Phone Number [facility] [address] [place] [phone] * Albumin, Random Urine W/Creatinine (09/05/2024 8:35 AM EST) Creatinine, Urine 117.04 mg/dL [facility] Microalbumin Urine 8.0 mg/L [facility] Microalbum Creatinine Ratio Ur 6.8 <30 ug/mg cr [facility] Comment:Albumin/Creatinine R atio Reference Ranges: Normal: < 30 ug/mg creatinine Microalbuminuria: 30 - 300 ug/mg creatinineClinical Albuminuria: > 300 ug/mg creatinine Urine (Urine, Random) 09/05/2024 8:35 AM EST 09/05/2024 11:21 AM EST [facility] OPTICAL MANUFACTURING TECHNICIAN LAB URINE ORDERABLES Final Resu lt Performing Organization Address [facility] Co de Phone Number [facility] [address] [place] [phone] * (ABNORMAL) Lipid Panel, Standard (09/05/2024 8:35 AM EST) Triglycerides 344(H) <150 mg/dL [facility] Comment:Mild Lipemia.Desirab le Triglyceride: less than 150 mg/dLBorderline High Triglyceride 150-199 mg/dLHigh Triglyceride: 200-499 mg/dLVery High Triglyceride: greater than or equal to 5OO mg/dL Cholesterol 183 <200 mg/dL [facility] Comment:Desirable Cholestero l: less than 200 mg/dLBorderline High Cholesterol: 200-239 mg/dLHigh Cholesterol: greater than 239 mg/dL LDL Cholesterol Calculated 82 <100 mg/dL [facility] Comment:Desirable LDL: less than 100 mg/dLNear Optimal/Above Optimal LDL: 110- 129 mg/dLBorderline High LDL: 130-159 mg/dLHigh LDL: 160-189 mg/dLVery High LDL: greater than or equal to 190 mg/dL HDL Cholesterol 33(L) >40 mg/dL [facility] Comment:Desirable HDL: great er than 40 mg/dL Note: This HDL assay may give artificially low results in patients with liver disease. Blood Venous blood specimen / Unknown 09/05/2024 8:35 AM EST 09/05/2024 11:23 AM EST Shanda Rg OPTICAL MANUFACTURING TECHNICIAN LAB BLOOD ORDERABLES Final Resu lt Performing Organization Address [facility]/ZIP Co de Phone Number [facility] [address] [place] [phone] * Hepatitis C Antibody with Reflex to HCV, RNA, Quantitative, Real-Time PCR (11/09/2023 3:25 PM EDT) Hepatitis C Antibody Nonreactive Nonreactive [facility] Comment:Antibodies to HCV no t detected; does not exclude early acuteHCV infection. Blood Venous blood specimen / Unknown 11/09/2023 3:25 PM EDT 11/09/2023 3:25 PM EDT Shanda Kelsey OPTICAL MANUFACTURING TECHNICIAN LAB BLOOD ORDERABLES Final Resu lt [facility] [address] [place] [phone] * HIV-1/2 Antigen and Antibodies, Fourth Generation, with Reflexes (11/09/2023 3:25 PM EDT) Pathologist [facility] HIV AB/AG Nonreactive Nonreactive [facility] Comment:HIV-1 p24 Ag and/or HIV-1/HIV-2 Ab not detected.A test result that is nonreactive does not exclude thepossibility of exposure to or infection with HIV-1 and/orHIV-2. Nonreactive results in this assay for individualswith prior exposure to HIV-1 and/or HIV-2 may be due toantigen and antibody levels that are below the limit ofdetection of this assay.The [employer] HIV Ag/Ab Combo assay result andsupplemental assay results should be interpreted inconjunction with the patient's clinical presentation,history and other laboratory results. If the results areinconsistent with clinical evidence, additional testing issuggested to confirm the result. Blood Venous blood specimen / Unknown 11/09/2023 3:25 PM EDT 11/09/2023 3:25 PM EDT Shanda Cole OPTICAL MANUFACTURING TECHNICIAN LAB BLOOD ORDERABLES Final Resu lt [facility] [address] [place] [phone] * Colonoscopy (07/12/2021) Colonoscopy normal us Historical Provider HEALTH MAINTENANCE Edited Result - Final from Last 3 Months or Most Recently Relevant to Health Maintenance Insurance [employer] [place], [place] Care Teams Level Vial Marker Relationship Specialty Start Date End Date Shanda Rg NP [address] [place] [address] PCP - General Family Medicine 06/06/23 Jas Cordero FNP [address] [place] [address] Nurse Practitioner Family Medicine 07/24/23 Aixa Ng District AgentGlazing Department Supervisor 09/11/23
--- OUTSIDE RECORDS SUMMARY | 2025-07-04 08:51 | XMS_ITS | Encounter Summary ---
Author Organization [employer] Address [address] [place] [address] 7 [place] [address] Care Team Providers Care Formulation Technician Name Role Phone Shanda Rg NP Primary Care Provider [phone] Jas Cordero Unavailable Unavailable Encounter Details Date Type Department [facility] Team ([facility] Contact [facility]) Description 06/09/2025 Results Follow-Up [facility] MEDICINE [address] [place] [address] Annabel Villegas MD 230 [place] [address] CBC auto differential, Hepatic Function Panel, POCT Urinalysis Social History Tobacco Use Types Packs/Day Years [...] as of this encounter Miscellaneous Notes * Result Encounter Note - Annabel Villegas MD - 06/09/2025 5:00 PM EDT Please send Stable Lab Letter documented in this encounter Plan of Treatment Upcoming Encounters Date Type Department Care Team (Late st Contact Info) Description 07/09/2025 9:00 AM EST Clinical Support [facility] MED[facility]INE [address] [place] [address] Cait Velazquez RN 07/10/2025 11:00 AM EST Office Visit [facility] MED[facility]INE [address] [place] [address] Shanda Rg NP [address] [place] [address] 10/23/2025 1:30 PM EST Office Visit [facility] OPTOMETRY [address] [place] [address] Oly Christiansen, OD [address] [place] [address] documented as of this encounter Visit Diagnoses Not on filedocumented in this encounter Additional Health Concerns Assessment Noted Time PHQ-9 Depression Total Score: 17 025 3:44 PM EDT documented as of this encounter Care Teams Formulation Technician Relationship Specialty Start Date End Date Shanda Rg NP [address] [place] [address] PCP - General Family Medicine 06/06/23 Jas Cordero FNP [address] [place] [address] Nurse Practitioner Family Medicine 07/24/23 Aixa Ng Funeral Director'S AssistantLatex Fashions Designer 09/11/23 documented as of this encounter
--- OUTSIDE RECORDS SUMMARY | 2025-07-04 08:51 | XMS_ITS | Encounter Summary ---
Author Organization [employer] [facility] Address [address] [place] [address] [place], [place] [address] Care Team Providers Care Narcotics Agent Name Role Phone Carmen Faust MD Primary Care Provider Cali Lundberg BRIM CUTTER Primary Care Provider Jada Gomez BRIM CUTTER Primary Care Provider Shanda Romna NP Primary Care Provider [phone] Jas Cordero BRIM CUTTER Unavailable Unavailable Encounter Details Date Type Department Care Team (Late st Contact Info) Description 08/05/2022 Orders Only [facility] MEDICINE [address] [place] [address] Matthew Dunbar MD [address] [place] [address] Social History Tobacco Use Types Packs/Day Years [...] Description 07/09/2025 9:00 AM EST Clinical Support [address] [address] Cait Velazquez RN 07/10/2025 11:00 AM EST Office Visit [address] [address] Shanda Rg, DEEPA 230 [place] [address] 10/23/2025 1:30 PM EST Office Visit [facility] OPTOMETRY [address] [place] [address] Kuldip, Oly, OD [address] [place] [address] documented as of this encounter Visit Diagnoses Not on filedocumented in this encounter Care Teams Narcotics Agent Relationship Specialty Start Date End Date Carmen Faust MD PCP - General Family Medicine 02/17/20 09/20/22 Cali Steward FNP PCP - General Family Medicine 09/21/22 10/26/22 Jada Erickson FNP PCP - General Family Medicine 10/27/22 06/05/23 Shanda Rg NP 230 [place], [place] [id number] PCP - General Family Medicine 06/06/23 Jas Cordero FNP [address] [place] [address] Nurse Practitioner Family Medicine 07/24/23 Aixa Ng Drop Wire OperatorAgent Ticketing Gate 09/11/23 documented as of this encounter
--- OUTSIDE RECORDS SUMMARY | 2025-07-04 08:51 | XMS_ITS | Encounter Summary ---
Author Organization [employer] Address [address] [place] [address] 7 [place] [address] Care Team Providers Care Tape Folding Machine Operator Name Role Phone Jada Erickson PROPERTY SUPERVISOR Primary Care Provider Shanda Roman RN SURGICAL PCU Primary Care Provider [phone] Jas Cordero PROPERTY SUPERVISOR Unavailable Unavailable Reason for Visit * Reason Comments Med Refill Encounter Details Date Type Department Care Team (Late st Contact Info) Description 05/30/2023 Refill [facility] MEDICINE [address] [place] [address] Jada Erickson FNP Pain; Cervical radiculopathy; Lumbar [...] 07/09/2025 9:00 AM EST Clinical Support [facility] MEDICINE [address] [place] [address] Cait Velazquez, RN 07/10/2025 11:00 AM EST Office Visit [facility] MEDICINE [address] [place] [address] Shanda Rg NP 230 [place] [address] 10/23/2025 1:30 PM EST Office Visit [facility] OPTOMETRY [address] [place] [address] Oly Christiansen, OD 230 [place] [address] documented as of this encounter Visit Diagnoses Diagnosis Pain Generalized pain Cervical radiculopathy Brachial neuritis or radiculitis nos Lumbar radiculopathy Thoracic or lumbosacral neuritis or radiculitis, unspecified documented in this encounter Additional Health Concerns Assessment Noted Time PHQ-9 Depression Total Score: 0 04/13/20 9:39 AM EDT documented as of this encounter Care Teams Tape Folding Machine Operator Relationship Specialty Start Date End Date Jada Erickson FNP PCP - General Family Medicine 10/27/22 06/05/23 Shanda Rg NP [address] [place] [address] PCP - General Family Medicine 06/06/23 Jas Cordero FNP [address] [place] [address] Nurse Practitioner Family Medicine 07/24/[address] MessengerInteractive Account Manager 09/11/23 documented as of this encounter
--- OUTSIDE RECORDS SUMMARY | 2025-07-04 08:51 | XMS_ITS | Encounter Summary ---
Author Organization [employer] Address [address] [place] [address] 7 [place] [address] Care Team Providers Care Ic Design Engineer Name Role Phone Shanda Rg NP Primary Care Provider [phone] Jas Cordero Unavailable Unavailable Reason for Visit * Reason Onset Date Comments Results 05/16/2025 Encounter Details Date Type Department Care Team (Latest Contact Info) Description 05/16/2025 Results Follow-Up [facility] MEDICINE 230 [place] [address] Shanda Rg NP 230 [place] [address] Cyclic Citrullinated Peptide (CCP) Antibody (IgG), Rheumatoid Factor, C-reactive Protein, Sed Rate by Modified Westergren Social History Tobacco Use Types Packs/Day Years [...] Telephone Encounter - Rosemarie Mcgrath RN - 05/16/2025 2:59 PM EDT TC placed to pt via [employer] ground support equipment fitter (ID#[id number]) to inform and advise of below PCP message. Advised pt per PCP inflammatory marker are not suggestive of RA. Symptoms are most consistent with OA. I recommend tylenol for pain and stress ball to assist with enhancing flexibility. Pt reports they do not have strength in their hands and cannot move hands like before. Pt reports their mobility has decreased in their hands. Pt requesting further recommendations from PCP. Advised pt again of PCP recommendation to take tylenol for pain and stress ball to assist with enhancing flexibility. Pt requesting further recommendation. Advised message to be sent to PCP for review. Pt verbalized understanding and denies questions at this time. ----- Message from Shanda Rg sent at 05/16/2025 2:55 PM EDT ----- Please inform patient inflammatory marker are not suggestive of RA. Symptoms are most consistent with OA. I recommend tylenol for pain and stress ball to assist with enhancing flexibility. Thanks ----- Message ----- From: Dagoberto, Lab Results In Sent: 04/25/2025 6:20 PM EDT To: Shanda Rg NP documented in this encounter Plan of Treatment Upcoming Encounters Date Type Department Care Team (Late st Contact Info) Description 07/09/2025 9:00 AM EST Clinical Support [facility]INE [address] [place] [address] Cait Velazquez RN 07/10/2025 11:00 AM EST Office Visit [facility] [address] [place] [address] Shanda Rg NP [address] [place] [address] 10/23/2025 1:30 PM EST Office Visit [facility] OPTOMETRY [address] [place] [address] Kuldip, Oly, OD [address] [place] [address] documented as of this encounter Visit Diagnoses Not on filedocumented in this encounter Additional Health Concerns Assessment Noted Time PHQ-9 Depression Total Score: 17 025 3:44 PM EDT documented as of this encounter Care Teams Ic Design Engineer Relationship Specialty Start Date End Date Shanda Rg NP [address] [place] [address] PCP - General Family Medicine 06/06/23 Jas Cordero FNP [address] [place] [address] Nurse Practitioner Family Medicine 07/24/23 Aixa Ng Real Estate PhotographerNew Order Clerk 09/11/23 documented as of this encounter
--- OUTSIDE RECORDS SUMMARY | 2025-07-04 08:51 | XMS_ITS | Encounter Summary ---
Author Organization [employer] Address [address] [place] [address] 7 [place] [address] Care Team Providers Care Supervisory Investigative Specialist Name Role Phone Shanda Rg NP Primary Care Provider [phone] Jas Cordero Unavailable Unavailable Reason for Visit * Reason Onset Date Comments Med Refill 02/15/2024 Encounter Details Date Type Department Care Team (Late st Contact Info) Description 02/15/2024 Telephone [facility] MEDICINE 230 [place] [address] Shanda Rg NP [address] [place] [address] Med Refill Social History Tobacco Use Types [...] 10:43 AM EDT Medication was sent to [facility] on 01/30/24 #30 with 5 refills. * Telephone Encounter - Susan Mendoza - 02/15/2024 10:39 AM EDT TC from pt requesting medication refill. Medications needing refill : zolpidem (Ambien) 10 MG tablet To be sent to: [facility] - [place], [place] - [address] [place] [address] documented in this encounter Plan of Treatment Upcoming Encounters Date Type Department Care Team (Late st Contact Info) Description 07/09/2025 9:00 AM EST Clinical Support [address] [address] Cait Velazquez, RN 07/10/2025 11:00 AM EST Office Visit [facility] MEDICINE [address] [place] [address] Shanda Rg NP [address] [place] [address] 10/23/2025 1:30 PM EST Office Visit [facility] OPTOMETRY [address] [place], [place] [address] Oly Christiansen, OD [address] [place] [address] documented as of this encounter Visit Diagnoses Not on filedocumented in this encounter Additional Health Concerns Assessment Noted Time PHQ-9 Depression Total Score: 9 01/30/20 24 9:09 AM EDT documented as of this encounter Care Teams Supervisory Investigative Specialist Relationship Specialty Start Date End Date Shanda Rg NP [address] [place] [address] PCP - General Family Medicine 06/06/23 Jas Cordero FNP [address] [place] [address] Nurse Practitioner Family Medicine 07/24/23 Aixa Ng Training GeneralistCommercial Attache 09/11/23 documented as of this encounter
--- OUTSIDE RECORDS SUMMARY | 2025-07-04 08:51 | XMS_ITS | Encounter Summary ---
Author Organization [employer] Address [address] [place] [address] 7 [place] [address] Care Team Providers Care Teaching Dietitian Name Role Phone Shanda Rg NP Primary Care Provider [phone] Jas Cordero Unavailable Unavailable Reason for Visit * Reason Comments Med Refill Encounter Details Date Type Department Care Team ([facility] st Contact Info) Description 09/22/2023 Refill [facility] MEDICINE [address] [place] [address] Carrie Shrestha MD 230 [place] [address] Seasonal allergic rhinitis, unspecified trigger Social History [...] Description 07/09/2025 9:00 AM EST Clinical Support [facility] MEDICINE [address] [place] [address] Cait Velazquez RN 07/10/2025 11:00 AM EST Office Visit [facility] MED[facility]INE [address] [place] [address] Shanda Rg NP [address] [place] [address] 10/23/2025 1:30 PM EST Office Visit [facility] OPTOMETRY [address] [place] [address] Oly Christiansen OD [address] [place] [address] documented as of this encounter Visit Diagnoses Diagnosis Seasonal allergic rhinitis, unspecified trigger documented in this encounter Additional Health Concerns Assessment Noted Time PHQ-9 Depression Total Score: 4 08/01/20 23 11:20 AM EST documented as of this encounter Care Teams Teaching Dietitian Relationship Specialty Start Date End Date Shanda Rg NP 230 [place] [address] PCP - General Family Medicine 06/06/23 Jas Cordero FNP [address] [place] [address] Nurse Practitioner Family Medicine 07/24/23 Aixa Ng Protection Chief Industrial PlantCorncob Pipe Manufacturing Supervisor 09/11/23 documented as of this encounter
--- OUTSIDE RECORDS SUMMARY | 2025-07-04 08:52 | XMS_ITS | Encounter Summary ---
Author Organization [employer] [facility] Address [address] [place] [address] 7t [place] [address] Care Team Providers Care Cheese Supervisor Name Role Phone Carmen Faust MD Primary Care Provider Cali Lundberg BANK OFFICER Primary Care Provider Jada Gomez BANK OFFICER Primary Care Provider Shanda Roman NP Primary Care Provider [phone] Jas Cordero BANK OFFICER Unavailable Unavailable Encounter Details Date Type Department Care Team (Latest Contact Info) Description 07/15/2019 Abstract [facility] CONVERSIONS Dental, Provider, DDS Social History [...] EST Clinical Support [facility] MEDICINE [address] [place] [address] Cait Velazquez RN 07/10/2025 11:00 AM EST Office Visit [facility] MEDICINE [address] [place] [address] Shanda Rg NP [address] [place] [address] 10/23/2025 1:30 PM EST Office Visit [facility] OPTOMETRY [address] [place] [address] Oly Christiansen, OD [address] [place] [address] documented as of this encounter Visit Diagnoses Not on filedocumented in this encounter Care Teams Cheese Supervisor Relationship Specialty Start Date End Date Carmen Faust MD PCP - General Family Medicine 02/17/20 09/20/22 Cali Steward FNP PCP - General Family Medicine 09/21/22 10/26/22 Jada Erickson FNP PCP - General Family Medicine 10/27/22 06/05/23 Shanda Rg NP [address] [place] [address] PCP - General Family Medicine 06/06/23 Jas Cordero FNP [address] [place] [address] Nurse Practitioner Family Medicine 07/24/23 Aixa Ng Truck LoaderChurch Supervisor 09/11/23 documented as of this encounter
== END 2025-07-04 09:06 | disposition home or self-care (01) ==
LOC: HO.HOS 08:23
PROVIDERS: PCP Nurse Practitioner; Visit Provider Physician Assistant
DX: S46.002A Unspecified injury of muscle(s) and tendon(s) of the rotator cuff of left shoulder, initial encounter (principal); M85.622 Other cyst of bone, left upper arm
CPT/HCPCS: 99213

== ENCOUNTER → 2025-07-04 08:28 | Outpatient (BNV) | payer MEDICAID, SELFPAY | PROVIDERS: Visit Provider Radiology Diagnostic Ultrasound | DX: M75.92 Shoulder lesion, unspecified, left shoulder (principal) | CPT/HCPCS: 73030 ==

== ENCOUNTER 2025-08-05 18:16 | Outpatient (REF) | payer MEDICAID, SELFPAY ==
--- NOTE | ~2025-08-05 | MR_ITS ---
EXAMINATION: MR SHOULDER WITHOUT CONTRAST, LEFT CLINICAL INFORMATION: Unspecified injury of the muscles and tendons. COMPARISON: None available. TECHNIQUE: MRI of the shoulder without contrast was performed on a high-field scanner. FINDINGS: ROTATOR CUFF: The supraspinatus and infraspinatus tendon is not clearly visualized. There is some irregular amorphous signal in the expected region of the tendons. Findings are suggestive of essentially full-thickness tearing, with possible residual thin strands remaining. Tear measures approximately 4.2 cm medial-lateral. Teres minor is intact. Moderate subscapularis tendinosis, 0.4 cm (medial-lateral) longitudinal oriented intrasubstance/deep surface tear in the tendon. Mild infraspinatus muscle atrophy. BICEPS: The proximal intra-articular biceps tendon is not clearly visualized. The tendon, coursing in the biceps groove appears intact. CORACOACROMIAL ARCH: The undersurface of the acromion is curved with no subacromial spur. Mild acromioclavicular arthritis. Small fluid in the subacromial subdeltoid space. LABRUM/CAPSULE: There is labral degeneration. No displaced labral tear is seen. Inferior capsule is grossly intact. GLENOHUMERAL JOINT/MARROW: Mild-moderate glenohumeral arthritis. Posterior glenoid degenerative cyst/edema. Chondral thinning. No acute fracture seen. No significant joint effusion. No axillary lymphadenopathy. MR/MR shoulder LT wo con IMPRESSION: * Abnormal supraspinatus and infraspinatus findings consistent with essentially full-thickness tearing of the tendon. Possible thin amorphous ill-defined strands remaining. The tendon is retracted approximately 4.2 cm from the tuberosity insertion.. *Moderate subscapularis tendinosis. 0.4 cm small partial tear. * Proximal intra-articular biceps tendon is not clearly visualized. * Labral degeneration. * Mild acromioclavicular arthritis. *Mild-moderate glenohumeral arthritis. Electronically signed by: Ramiro Caruso MD 08/06/2025 01:21 PM [facility]
--- OUTSIDE RECORDS SUMMARY | 2025-08-05 23:10 | XMS_ITS | Encounter Summary ---
Author Organization [employer] Address [address] [place] [address] 7 [place] [address] Care Team Providers Care Ekg Monitor Name Role Phone Shanda Rg NP Primary Care Provider [phone] Jas Cordero Unavailable Unavailable Reason for Visit * Reason Comments Med Refill Encounter Details Date Type Department Care Team (Late st Contact Info) Description 09/09/2023 Refill [facility] MEDICINE 230 [place] [address] NameJerardo MD 230 [place] [address] Radiculopathy, cervical region Social History Tobacco Use [...] Care Team (Late st Contact Info) Description 09/04/2025 1:00 PM EST Clinical Support [facility] MEDICINE [address] [place] [address] 10/23/2025 1:30 PM EST Office Visit [facility] OPTOMETRY [address] [place] [address] Oly Christiansen, OD [address] [place] [address] 11/06/2025 8:30 AM EDT Clinical Support [facility] MEDICINE [address] [place] [address] Cait Velazquez RN documented as of this encounter Visit Diagnoses Diagnosis Radiculopathy, cervical region Brachial neuritis or radiculitis nos documented in this encounter Additional Health Concerns Assessment Noted Time PHQ-9 Depression Total Score: 4 08/01/20 23 11:20 AM EST documented as of this encounter Care Teams Ekg Monitor Relationship Specialty Start Date End Date Shanda Rg NP [address] [place] [address] PCP - General Family Medicine 06/06/23 Jas Cordero FNP [address] [place] [address] Nurse Practitioner Family Medicine 07/24/23 Aixa Ng Director Of Retail MerchandisingSoftware Systems Architect 09/11/23 documented as of this encounter
--- OUTSIDE RECORDS SUMMARY | 2025-08-05 23:10 | XMS_ITS | Encounter Summary ---
Author Organization [facility] Address [address] [place] [address] [address] Care Team Providers Care Website Programmer Name Role Phone Carmen Faust MD Primary Care Provider Cali Lundberg Primary Care Provider Jada Gomez SENIOR WEB ARCHITECT Primary Care Provider Shanda Roman NP Primary Care Provider [phone] Jas Cordero Unavailable Unavailable Reason for Visit * Reason Comments Med Refill Encounter Details Date Type Department Care Team (Late st Contact Info) Description 09/01/2022 Refill [facility] MEDICINE [address] [place] [address] Jas Cordero FNP Social History Tobacco Use [...] Description 09/04/2025 1:00 PM EST Clinical Support [facility] MEDICINE [address] [place] [address] 10/23/2025 1:30 PM EST Office Visit [facility] OPTOMETRY [address] [place] [address] Oly Christiansen, OD [address] [place] [address] 11/06/2025 8:30 AM EDT Clinical Support [facility] MEDICINE [address] [place] [address] Cait Velazquez, RN documented as of this encounter Visit Diagnoses Not on filedocumented in this encounter Additional Health Concerns Assessment Noted Time PHQ-9 Depression Total Score: 12 022 9:34 AM EST documented as of this encounter Care Teams Website Programmer Relationship Specialty Start Date End Date Carmen Faust MD PCP - General Family Medicine 02/17/20 09/20/22 Cali Steward FNP PCP - General Family Medicine 09/21/22 10/26/22 Jada Erickson FNP PCP - General Family Medicine 10/27/22 06/05/23 Shanda Rg NP [address] [place] [address] PCP - General Family Medicine 06/06/23 Jas Cordero FNP [address] [place] [address] Nurse Practitioner Family Medicine 07/24/23 Aixa Ng Melter LoaderLabeler 09/11/23 documented as of this encounter
--- OUTSIDE RECORDS SUMMARY | 2025-08-05 23:10 | XMS_ITS | Encounter Summary ---
Author Organization [employer] Address [address] [place] [address] 7 [place] [address] Care Team Providers Care Division Sergeant Name Role Phone Jada Erickson SIDE TRIMMER Primary Care Provider Shanda Roman AIRCRAFT SALES REPRESENTATIVE Primary Care Provider [phone] Jas Cordero SIDE TRIMMER Unavailable Unavailable Reason for Visit * Reason Comments Med Refill Encounter Details Date Type Department Care Team (Late st Contact Info) Description 05/30/2023 Refill [facility] MEDICINE [address] [place] [address] Jada Erickson FNP Pain; Cervical radiculopathy; Lumbar [...] 06/01/2023 9:23 AM Chiquita Krishnan [place] * How difficult have these problems made it for you to do your work, take care of things at home, or get along with other people? Answer Date of Assessment Author Somewhat difficult 06/01/2023 9:23 AM Mable Laboy [place] * Over the past 2 weeks, [...] Health Questionnaire-9 Score 10 06/01/2023 9:23 AM Eder Krishnan [place] documented as of this encounter Plan of Treatment Upcoming Encounters Date Type Department Care Team (Late st Contact Info) Description 09/04/2025 1:00 PM EST Clinical Support [facility] MEDICINE [address] [place] [address] 10/23/2025 1:30 PM EST Office Visit [facility] OPTOMETRY [address] [place] [address] Kuldip, Oly, OD [address] [place] [address] 11/06/2025 8:30 AM EDT Clinical Support [facility] MEDICINE [address] [place] [address] Cait Velazquez RN documented as of this encounter Visit Diagnoses Diagnosis Pain Generalized pain Cervical radiculopathy Brachial neuritis or radiculitis nos Lumbar radiculopathy Thoracic or lumbosacral neuritis or radiculitis, unspecified documented in this encounter Additional Health Concerns Assessment Noted Time PHQ-9 Depression Total Score: 0 04/13/20 9:39 AM EDT documented as of this encounter Care Teams Division Sergeant Relationship Specialty Start Date End Date Jada Erickson FNP PCP - General Family Medicine 10/27/22 06/05/23 Shanda Rg NP [address] [place] [address] PCP - General Family Medicine 06/06/23 Jas Cordero FNP [address] [place] [address] Nurse Practitioner Family Medicine 07/24/23 Aixa Ng Specifications CheckerProduct Communications Manager 09/11/23 documented as of this encounter
--- OUTSIDE RECORDS SUMMARY | 2025-08-05 23:10 | XMS_ITS | Encounter Summary ---
Author Organization [employer] Address [address] [place] [address] 7 [place] [address] Care Team Providers Care Palliative Care Nurse Name Role Phone Shanda Rg NP Primary Care Provider [phone] Jas Cordero Unavailable Unavailable Encounter Details Date Type Department Care Team ([facility] Contact Info) Description 06/09/2025 Results Follow-Up [facility] MEDICINE [address] [place] [address] Annabel Villegas MD [address] [place] [address] CBC auto differential, Hepatic Function Panel, POCT [...] Description 09/04/2025 1:00 PM EST Clinical Support [facility] MEDICINE [address] [place] [address] 10/23/2025 1:30 PM EST Office Visit [facility] OPTOMETRY [address] [place] [address] Oly Christiansen, OD [address] [place] [address] 11/06/2025 8:30 AM EDT Clinical Support [facility] MEDICINE [address] [place] [address] Cait Velazquez RN documented as of this encounter Visit Diagnoses Not on filedocumented in this encounter Additional Health Concerns Assessment Noted Time PHQ-9 Depression Total Score: 17 025 3:44 PM EDT documented as of this encounter Care Teams Palliative Care Nurse Relationship Specialty Start Date End Date Shanda Rg NP [address] [place] [address] PCP - General Family Medicine 06/06/23 Jas Cordero FNP [address] [place] [address] Nurse Practitioner Family Medicine 07/24/23 Aixa Ng Electronic TesterEarth Moving Technician 09/11/23 documented as of this encounter
--- OUTSIDE RECORDS SUMMARY | 2025-08-05 23:10 | XMS_ITS | Encounter Summary ---
Author Organization [facility] Address [address] [facility] [address] [place] [address] Phone Care Team Providers Care Environmental Remediation Engineer Name Role Phone Pcp, Unknown Primary Care Provider Unavailabl e Encounter Details Date Type Department Care Team (Late st Contact Info) Description 07/06/2017 Ancillary Orders [facility] [address] [place] [address] [place] [address] Darius Johnson DO [address] [place] [address] Palpitations Social History Tobacco Use Types Packs/Day [...] Palpitations documented in this encounter Care Teams Environmental Remediation Engineer Relationship Specialty Start Date End Date Pcp, Unknown PCP - General 07/06/17 documented as of this encounter Additional Source Comments The information contained in this document represents components of the legal health record. It is not the complete legal health record.[facility]
--- OUTSIDE RECORDS SUMMARY | 2025-08-05 23:10 | XMS_ITS | Encounter Summary ---
Author Organization [employer] Address [address] [place] [address] 7 [place] [address] Care Team Providers Care Taper/Finisher Name Role Phone Jada Erickson ELECTRO MECHANICAL TECHNICIAN Primary Care Provider Shanda Roman TIEING MACHINE OPERATOR Primary Care Provider [phone] Jas Cordero ELECTRO MECHANICAL TECHNICIAN Unavailable Unavailable Reason for Visit * Reason Comments Med Refill Encounter Details Date Type Department Care Team (Late st Contact Info) Description 05/30/2023 Refill [facility] MEDICINE [address] [place] [address] Jada Erickson FNP Pain; Cervical radiculopathy; Lumbar [...] Description 09/04/2025 1:00 PM EST Clinical Support [facility] MED[facility]INE [address] [place] [address] 10/23/2025 1:30 PM EST Office Visit [facility] OPTOMETRY [address] [place] [address] Kuldip, Oly, OD 230 [place] [address] 11/06/2025 8:30 AM EDT Clinical Support [facility] MEDICINE [address] [place] [address] Cait Velazquez RN documented as of this encounter Visit Diagnoses Diagnosis Pain Generalized pain Cervical radiculopathy Brachial neuritis or radiculitis nos Lumbar radiculopathy Thoracic or lumbosacral neuritis or radiculitis, unspecified documented in this encounter Additional Health Concerns Assessment Noted Time PHQ-9 Depression Total Score: 0 04/13/20 9:39 AM EDT documented as of this encounter Care Teams Taper/Finisher Relationship Specialty Start Date End Date Jada Erickson FNP PCP - General Family Medicine 10/27/22 06/05/23 Shanda Rg NP [address] [place] [address] PCP - General Family Medicine 06/06/23 Jas Cordero FNP [address] [place] [address] Nurse Practitioner Family Medicine 07/24/23 Aixa Ng Gang BossCardiology Teacher 09/11/23 documented as of this encounter
--- OUTSIDE RECORDS SUMMARY | 2025-08-05 23:10 | XMS_ITS | Encounter Summary ---
Author Organization [employer] [facility] Address [address] [place] [address] 7 [place] [address] Care Team Providers Care Milk Condenser Name Role Phone Jada Erickson MERCHANDISE CARRIER Primary Care Provider Shanda Roman MEDICAL ASSISTANT PRN Primary Care Provider [phone] Jas Cordero MERCHANDISE CARRIER Unavailable Unavailable Reason for Visit * Reason Comments Med Refill Encounter Details Date Type Department Care Team ([facility] Contact Info) Description 01/24/[address] [address] Jada Erickson FNP Pain; Cervical radiculopathy; Lumbar [...] Upcoming Encounters Date Type Department Care Team ([facility] Contact Info) Description 09/04/2025 1:00 PM EST Clinical Support [facility] MEDICINE [address] [place] [address] 10/23/2025 1:30 PM EST Office Visit [facility] OPTOMETRY [address] [place] [address] Oly Christiansen, OD 230 [place] [address] 11/06/2025 8:30 AM EDT Clinical Support [facility] MEDICINE [address] [place] [address] Cait Velazquez RN documented as of this encounter Visit Diagnoses Diagnosis Pain Generalized pain Cervical radiculopathy Brachial neuritis or radiculitis nos Lumbar radiculopathy Thoracic or lumbosacral neuritis or radiculitis, unspecified documented in this encounter Additional Health Concerns Assessment Noted Time PHQ-9 Depression Total Score: 9 01/18/20 12:56 PM EDT documented as of this encounter Care Teams Milk Condenser Relationship Specialty Start Date End Date Jada Erickson FNP PCP - General Family Medicine 10/27/22 06/05/23 Shanda Rg NP [address] [place] [address] PCP - General Family Medicine 06/06/23 Jas Cordero FNP [address] [place] [address] Nurse Practitioner Family Medicine 07/24/23 Aixa Ng Manufacturing MechanicHot Patcher 09/11/23 documented as of this encounter
--- OUTSIDE RECORDS SUMMARY | 2025-08-05 23:10 | XMS_ITS | Encounter Summary ---
Author Organization [employer] Address [address] [place] [address] 7 [place] [address] Care Team Providers Care Promotor Group Ticket Sales Name Role Phone Shanda Rg NP Primary Care Provider [phone] Jas Cordero Unavailable Unavailable Reason for Visit * Reason Onset Date Comments Med Refill 03/25/2024 Encounter Details Date Type Department Care Team (Late st Contact Info) Description 03/25/2024 Telephone [facility] MEDICINE [address] [place] [address] Shanda Rg NP [address] [place], [place] [phone] Med Refill Social History Tobacco Use Types [...] qty - 112 for 28 dayssupply. From [facility] pharmacy. * Telephone Encounter - Jean Rosario - 03/25/2024 1:38 PM EDT TC from pt requesting medication refill. Medications needing refill: traMADol (Ultram) 50 MG tablet To be sent to: [facility] Pharmacy documented in this encounter Plan of Treatment Upcoming Encounters Date Type Department Care Team (Late st Contact Info) Description 09/04/2025 1:00 PM EST Clinical Support [facility] MEDICINE [address] [place] [address] 10/23/2025 1:30 PM EST Office Visit [facility] OPTOMETRY [address] [place] [address] Kuldip, Oly, OD [address] [place], [place] [phone] 11/06/2025 8:30 AM EDT Clinical Support [facility] MEDICINE [address] [place] [address] Cait Velazquez RN documented as of this encounter Visit Diagnoses Not on filedocumented in this encounter Additional Health Concerns Assessment Noted Time PHQ-9 Depression Total Score: 9 01/30/20 9:09 AM EDT documented as of this encounter Care Teams Promotor Group Ticket Sales Relationship Specialty Start Date End Date Shanda Rg NP [address] [place] [address] PCP - General Family Medicine 06/06/23 Jas Cordero FNP [address] [place] [address] Nurse Practitioner Family Medicine 07/24/23 Aixa Ng Rush SeaterNational Sales Trainer 09/11/23 documented as of this encounter
--- OUTSIDE RECORDS SUMMARY | 2025-08-05 23:10 | XMS_ITS | Encounter Summary ---
Author Organization [employer] Address [address] [place] [address] 7 [place] [address] Care Team Providers Care Mononitrotoluene Operator Name Role Phone Shanda Rg NP Primary Care Provider [phone] Jas Cordero Unavailable Unavailable Reason for Visit * Reason Comments Med Refill Encounter Details Date Type Department Care Team ([facility] st Contact Info) Description 09/22/2023 Refill [facility] MEDICINE 230 [place] [address] Carrie Shrestha MD 230 [place] [address] Seasonal allergic rhinitis, unspecified trigger Social History [...] Description 09/04/2025 1:00 PM EST Clinical Support [facility] MEDICINE [address] [place] [address] 10/23/2025 1:30 PM EST Office Visit [facility] OPTOMETRY [address] [place] [address] Oly Christiansen, OD 230 [place] [address] 11/06/2025 8:30 AM EDT Clinical Support [facility] MEDICINE [address] [place] [address] Cait Velazquez RN documented as of this encounter Visit Diagnoses Diagnosis Seasonal allergic rhinitis, unspecified trigger documented in this encounter Additional Health Concerns Assessment Noted Time PHQ-9 Depression Total Score: 4 08/01/20 23 11:20 AM EST documented as of this encounter Care Teams Mononitrotoluene Operator Relationship Specialty Start Date End Date Shanda Rg NP 230 [place] [address] PCP - General Family Medicine 06/06/23 Jas Cordero FNP [address] [place] [address] Nurse Practitioner Family Medicine 07/24/23 Aixa Ng Auto Bench MechanicSolid State Tester 09/11/23 documented as of this encounter
--- OUTSIDE RECORDS SUMMARY | 2025-08-05 23:10 | XMS_ITS | Clinical Summary ---
Author Organization [facility] Address [address] [place] [address] [place] [address] Phone Care Team Providers Care It Systems Analyst Name Role Phone Pcp, Unknown Primary Care [...] file Medical Devices Not on file Insurance [facility] CAREPLUS Member Subscriber Plan / Payer (Ef fective 2017-Present) Name:Davidson Gillespie Relation to Subscriber:Self Name:Davidson Gillespie Payer ID:[id number] Group ID:[id number] Type:Medicaid Address: [address] [facility] C3 ACO [facility] CAREPLUS Member Subscriber Plan / Payer (Ef fective 2017-Present) Name:Davidson Gillespie Relation to Subscriber:Self Name:Davidson Gillespie Payer ID:[id number] Group ID:[id number] Type:Medicaid Address: [address] C3 [employer] [facility] CAREPLUS Member Subscriber Plan / Payer (Ef fective 2017-Present) Name:Davidson Gillespie Relation to Subscriber:Self Name:Davidson Gillespie Payer ID:[id number] Group ID:[id number] Type:Medicaid Address: [address] C3 [employer] [facility] CAREPLUS Member Subscriber Plan / Payer (Ef fective 2017-Present) Name:Davidson Gillespie Relation to Subscriber:Self Name:Davidson Gillespie Payer ID:[id number] Group ID:[id number] Type:Medicaid Address: [address] C3 [employer] [facility] CAREPLUS Member Subscriber Plan / Payer (Ef fective 2017-Present) Name:Davidson Gillespie Relation to Subscriber:Self Name:Davidson Gillespie Payer ID:[id number] Group ID:[id number] Type:Medicaid Address: [address] [place] [address] [place] [address] CAREPLUS Member Subscriber Plan / Payer (Ef fective 2017-Present) Name:Davidson Gillespie Relation to Subscriber:Self Name:Davidson Gillespie Payer ID:[id number] Group ID:[id number] Type:Medicaid Address: [address] C[employer] [facility] CAREPLUS Member Subscriber Plan / Payer (Ef fective 2017-Present) Name:Davidson Gillespie Relation to Subscriber:Self Name:Davidson Gillespie Payer ID:[id number] Group ID:[id number] Type:Medicaid Address: [address] [place], [place] [address]PLUS Member Subscriber Plan / Payer (Ef fective 2017-Present) Name:Davidson Gillespie Relation to Subscriber:Self Name:Davidson Gillespie Payer ID:[id number] Group ID:[id number] Type:Medicaid Address: [address] C3 ACO [facility] C[employer]PL[employer] C3 ACO Care Teams It Systems Analyst Relationship Specialty Start Date End Date Pcp, Unknown PCP - General 07/06/17 Additional Source Comments The information contained in this document represents components of the legal health record. It is not the complete legal health record.[facility]
--- OUTSIDE RECORDS SUMMARY | 2025-08-05 23:10 | XMS_ITS | Encounter Summary ---
Author Organization [employer] Address [address] [place] [address] 7 [place] [address] Care Team Providers Care Director Health Name Role Phone Dre Jada Huntley PROGRAM MANAGEMENT SPECIALIST Primary Care Provider Marissa Shanda Mensah NP Primary Care Provider [phone] Jas Cordero Unavailable Unavailable Reason for Visit * Reason Comments Med Refill Encounter Details Date Type Department Care Team (Late st Contact Info) Description 10/31/2022 Refill [facility] MEDICINE [address] [place] [address] Jas Cordero FNP Major depressive disorder with [...] 11/02/2022 11:52 AM EST FYI, Pt had STRATEGIC CLIENT EXECUTIVE RV 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 Urine/Pill count WNL. Bp 152/108, stated he had taken his blood pressure medication this morning. documented in this encounter Plan of Treatment Upcoming Encounters Date Type Department Care Team (Late st Contact Info) Description 09/04/2025 1:00 PM EST Clinical Support [facility] MEDICINE [address] [place] [address] 10/23/2025 1:30 PM EST Office Visit [facility] OPTOMETRY [address] [place] [address] Kuldip, Oly, OD 230 [place] [address] 11/06/2025 8:30 AM EDT Clinical Support [facility] MEDICINE [address] [place] [address] Cait Velazquez RN documented as of this encounter Visit Diagnoses Diagnosis Major depressive disorder with psychotic features (CMS/HCC) (HCC) documented in this encounter Additional Health Concerns Assessment Noted Time PHQ-9 Depression Total Score: 9 09/27/19 9:22 AM EST documented as of this encounter Care Teams Director Health Relationship Specialty Start Date End Date Jada Erickson FNP PCP - General Family Medicine 10/27/22 06/05/23 Shanda Rg NP [address] [place] [address] PCP - General Family Medicine 06/06/23 Jas Cordero FNP [address] [place] [address] Nurse Practitioner Family Medicine 07/24/23 Aixa Ng Character ActressSenior Principal Software Engineer 09/11/23 documented as of this encounter
--- OUTSIDE RECORDS SUMMARY | 2025-08-05 23:10 | XMS_ITS | Encounter Summary ---
Author Organization [employer] Address [address] [place] [address] 7 [place] [address] Care Team Providers Care Etcher Photoengraving Name Role Phone Shanda Rg NP Primary Care Provider [phone] Jas Cordero Unavailable Unavailable Reason for Visit * Reason Onset Date Comments Med Refill 02/15/2024 Encounter Details Date Type Department Care Team (Late st Contact Info) Description 02/15/2024 Telephone [facility] MEDICINE [address] [place] [address] Shanda Rg NP [address] [place], [place] [phone] Med Refill Social History Tobacco Use Types [...] 10:43 AM EDT Medication was sent to [facility] Pharmacy on 01/30/24 #30 with 5 refills. * Telephone Encounter - Susan Mendoza - 02/15/2024 10:39 AM EDT TC from pt requesting medication refill. Medications needing refill : zolpidem (Ambien) 10 MG tablet To be sent to: [facility] - [place], [place] - [address] [facility] documented in this encounter Plan of Treatment Upcoming Encounters Date Type Department Care Team (Late st Contact Info) Description 09/04/2025 1:00 PM EST Clinical Support [facility] MEDICINE [address] [place], [place] [phone] 10/23/2025 1:30 PM EST Office Visit [facility] OPTOMETRY [address] [place] [address] Oly Christiansen, OD 230 [place] [address] 11/06/2025 8:30 AM EDT Clinical Support [facility] MEDICINE [address] [place] [address] Cait Velazquez, LUCY documented as of this encounter Visit Diagnoses Not on filedocumented in this encounter Additional Health Concerns Assessment Noted Time PHQ-9 Depression Total Score: 9 01/30/20 24 9:09 AM EDT documented as of this encounter Care Teams Etcher Photoengraving Relationship Specialty Start Date End Date Shanda Rg NP [address] [place] [address] PCP - General Family Medicine 06/06/23 Jas Cordero FNP [address] [place] [address] Nurse Practitioner Family Medicine 07/24/23 Aixa Ng Critical Care Nurse PractitionerForestry Farm Laborer 09/11/23 documented as of this encounter
--- OUTSIDE RECORDS SUMMARY | 2025-08-05 23:10 | XMS_ITS | Encounter Summary ---
Author Organization [employer] Address [address] [place] [address] [place], [place] [address] Care Team Providers Care Tumbling And Rolling Supervisor Name Role Phone Carmen Faust MD Primary Care Provider Cali Lundberg BOOK STORE ASSOCIATE Primary Care Provider Jada Gomez BOOK STORE ASSOCIATE Primary Care Provider Marissa Shanda Mensah NP Primary Care Provider [phone] Jas Cordero BOOK STORE ASSOCIATE Unavailable Unavailable Encounter Details Date Type Department Care Team (Late st Contact Info) Description 08/05/2022 Orders Only [facility] MEDICINE [address] [place] [address] Matthew Dunbar MD [address] [place] [address] Social History Tobacco Use Types Packs/Day Years [...] Description 09/04/2025 1:00 PM EST Clinical Support [facility] MEDICINE [address] [place] [address] 10/23/2025 1:30 PM EST Office Visit [facility] OPTOMETRY [address] [place] [phone] Oly Christiansen OD [address] [place] [address] 11/06/2025 8:30 AM EDT Clinical Support [facility] MEDICINE [address] [place] [address] Cait Velazquez, RN documented as of this encounter Visit Diagnoses Not on filedocumented in this encounter Care Teams Tumbling And Rolling Supervisor Relationship Specialty Start Date End Date Carmen Faust MD PCP - General Family Medicine 02/17/20 09/20/22 Cali Steward FNP PCP - General Family Medicine 09/21/22 10/26/22 Jada Erickson FNP PCP - General Family Medicine 10/27/22 06/05/23 Shanda Rg NP [address] [place] [address] PCP - General Family Medicine 06/06/23 Jas Cordero FNP [address] [place] [address] Nurse Practitioner Family Medicine 07/24/23 Aixa Ng [employer] ArchitectDocumentation Improvement Specialist 09/11/23 documented as of this encounter
--- OUTSIDE RECORDS SUMMARY | 2025-08-05 23:10 | XMS_ITS | Encounter Summary ---
Author Organization [employer] Address [address] [place] [address] 7 [place] [address] Care Team Providers Care Cardiac Exercise Physiologist Name Role Phone Shanda Rg NP Primary Care Provider [phone] Jas Cordero Unavailable Unavailable Reason for Visit * Reason Comments Med Refill Encounter Details Date Type Department Care Team (Late st Contact Info) Description 08/01/2023 Refill [facility] MEDICINE [address] [place] [address] Lianet Mae FNP [address] [place] [address] Pain; Cervical radiculopathy; Lumbar radiculopathy Social History [...] 08/01/2023 11:20 AM Mali Forbes [place] * How difficult have these problems made it for you to do your work, take care of things at home, or get along with other people? Answer Date of Assessment Author Somewhat difficult 08/01/2023 11:20 AM Mable Iglesias [place] * Over the past 2 weeks, [...] Description 09/04/2025 1:00 PM EST Clinical Support [facility] MEDICINE [address] [place] [address] 10/23/2025 1:30 PM EST Office Visit [facility] OPTOMETRY [address] [place] [address] Oly Christiansen, OD [address] [place] [address] 11/06/2025 8:30 AM EDT Clinical Support [facility] MEDICINE [address] [place] [address] Cait Velazquez RN documented as of this encounter Visit Diagnoses Diagnosis Pain Generalized pain Cervical radiculopathy Brachial neuritis or radiculitis nos Lumbar radiculopathy Thoracic or lumbosacral neuritis or radiculitis, unspecified documented in this encounter Additional Health Concerns Assessment Noted Time PHQ-9 Depression Total Score: 4 08/01/20 23 11:20 AM EST documented as of this encounter Care Teams Cardiac Exercise Physiologist Relationship Specialty Start Date End Date Shanda Rg NP [address] [place] [address] PCP - General Family Medicine 06/06/23 Jas Cordero FNP [address] [place] [address] Nurse Practitioner Family Medicine 07/24/23 Aixa Ng Painting WorkerHarvester Operator 09/11/23 documented as of this encounter
--- OUTSIDE RECORDS SUMMARY | 2025-08-05 23:10 | XMS_ITS | Encounter Summary ---
Author Organization [employer] Address [address] [place] [address] 7[address] [place] [address] Care Team Providers Care Straightening Roll Operator Name Role Phone Shanda Rg NP Primary Care Provider [phone] Jas Cordero Unavailable Unavailable Reason for Visit * Reason Comments Med Refill Encounter Details Date Type Department Care Team ([facility] st Contact Info) Description 06/08/2023 Refill [facility] MEDICINE [address] [place] [address] Jada Erickson FNP Seasonal allergic rhinitis, unspecified [...] Description 09/04/2025 1:00 PM EST Clinical Support [facility] MEDICINE [address] [place] [address] 10/23/2025 1:30 PM EST Office Visit [facility] OPTOMETRY [address] [place] [address] Oly Christiansen, OD [address] [place] [address] 11/06/2025 8:30 AM EDT Clinical Support [facility] MEDICINE [address] [place] [address] Cait Velazquez RN documented as of this encounter Visit Diagnoses Diagnosis Seasonal allergic rhinitis, unspecified trigger documented in this encounter Additional Health Concerns Assessment Noted Time PHQ-9 Depression Total Score: 10 023 9:23 AM EDT documented as of this encounter Care Teams Straightening Roll Operator Relationship Specialty Start Date End Date Shanda Rg NP [address] [place] [address] PCP - General Family Medicine 06/06/23 Jas Cordero FNP [address] [place] [address] Nurse Practitioner Family Medicine 07/24/23 Aixa Ng Web Production ArtistRn Plasma Center 09/11/23 documented as of this encounter
--- OUTSIDE RECORDS SUMMARY | 2025-08-05 23:10 | XMS_ITS | Encounter Summary ---
Author Organization [employer] Address [address] [place] [address] [address] [place] [address] Care Team Providers Care Director Safety Council Name Role Phone Shanda Rg NP Primary Care Provider [phone] Jas Cordero Unavailable Unavailable Reason for Visit * Reason Onset Date Comments Appointment Request 09/25/2023 Encounter Details Date Type Department Care Team ([facility] st Contact Info) Description 09/25/2023 Telephone [facility] MEDICINE [address] [place] [address] Shanda Rg NP [address] [place], [place] [phone] Appointment Request Social History Tobacco Use Types [...] regarding existing conditions. Please contact pt at [phone]. Kuwaiti speaking documented in this encounter Plan of Treatment Upcoming Encounters Date Type Department Care Team (Late st Contact Info) Description 09/04/2025 1:00 PM EST Clinical Support [facility] MEDICINE [address] [place] [address] 10/23/2025 1:30 PM EST Office Visit [facility] OPTOMETRY [address] [place] [address] Kuldip, Oly, OD [address] [place] [address] 11/06/2025 8:30 AM EDT Clinical Support [facility] MEDICINE [address] [place] [address] Cait Velazquez RN documented as of this encounter Visit Diagnoses Not on filedocumented in this encounter Additional Health Concerns Assessment Noted Time PHQ-9 Depression Total Score: 4 08/01/20 23 11:20 AM EST documented as of this encounter Care Teams Director Safety Council Relationship Specialty Start Date End Date Shanda Rg NP [address] [place] [address] PCP - General Family Medicine 06/06/23 Jas Cordero FNP [address] [place] [address] Nurse Practitioner Family Medicine 07/24/23 Aixa Ng Supervisor Meter Repair ShopMotorcycle Police 09/11/23 documented as of this encounter
--- OUTSIDE RECORDS SUMMARY | 2025-08-05 23:10 | XMS_ITS | Clinical Summary ---
Author Organization [employer] Address [address] [place] [address] 7 [place] [address] Care Team Providers Care Manager Services Name Role Phone Shanda Rg NP Primary Care Provider [phone] Jas Cordero Unavailable Unavailable Allergies No known [...] hours. 02/21/20 20 Active Fluocinolone Acetonide Scalp ([place]oot[place] /FS Scalp) 0.01 % oilIndications :Psoriasis Use [...] 2 diabetes mellitus without complication, unspecified whether snf insulin use TEST BLOOD SUGAR ONCE DAILY 100 each 11 20 25 Active glucose blood (FREESTYLE LITE) test stripIndicatio ns:Type 2 diabetes mellitus without complication, unspecified whether long goods drier insulin use TEST BLOOD SUGAR ONCE DAILY 50 each 10/30/19 25 Active Blood Glucose Monitoring Suppl (FreeStyle Lite) w/Device kitIndications :Type 2 diabetes mellitus without complication, unspecified whether long goods drier insulin use 1 kit 3 times daily. [...] BY MOUTH EVERY MORNING 90 tablet 1 5 3:34 PM EST 03/17/20 25 Active atorvastatin (Lipitor) 80 MG tablet TAKE 1 TABLET BY MOUTH AT BEDTIME 90 tablet 1 5 3:34 PM EST 03/17/20 25 Active Alcohol Swabs (Alcohol Prep) 70 % padsIndication s:Type 2 diabetes mellitus without complication, unspecified whether long goods drier insulin use USE DIRECTED THREE TIMES DAILY 100 each 11 5 3:34 PM EST 05/06/20 25 Active amLODIPine (Norvasc) 5 MG tablet TAKE 1 TABLET BY MOUTH EVERY MORNING 90 tablet 05/20/20 25 Active naloxone (Narcan) 4 mg/0.1 mL nasal sprayIndicatio ns:Long-term current use of opiate analgesic Administer 1 spray (4 mg) into affected nostril(s) if needed for opioid reversal. May repeat every 2-3 minutes if needed, alternating nostrils, until medical assistance becomes available. 2 each 3 5 3:47 PM EST 07/09/20 25 026 Active gabapentin (Neurontin) 300 MG capsuleIndicat ions:Radiculop athy, cervical region TAKE 1 CAPSULE BY MOUTH TWICE DAILY IN THE MORNING AND AT NOON and TAKE 2 CAPSULES BY MOUTH EVERY DAY AT BEDTIME 120 capsule 07/23/20 25 Active traMADol (Ultram) 50 MG tabletIndicati ons:Chronic pain of both knees TAKE 2 TABLETS BY MOUTH EVERY TWELVE HOURS NEEDED FOR SEVERE PAIN 112 tablet 5 3:55 PM EST 07/29/20 25 026 Active traMADol (Ultram) 50 MG tabletIndicati ons:Chronic pain of both knees Take 2 tablets (100 mg) by mouth every 12 (twelve) hours if needed for severe pain for up to 28 days. 112 tablet 06/09/20 25 025 Discontinued gabapentin (Neurontin) 300 MG capsuleIndicat ions:Radiculop athy, cervical region TAKE 1 CAPSULE BY MOUTH TWICE DAILY IN THE MORNING AND AT NOON and TAKE 2 CAPSULES BY MOUTH EVERY DAY AT BEDTIME 120 capsule 06/26/20 25 025 Discontinued traMADol (Ultram) 50 MG tabletIndicati ons:Chronic pain of both knees TAKE 2 TABLETS BY MOUTH EVERY TWELVE HOURS NEEDED FOR SEVERE PAIN 28 tablet 5 3:54 PM EST 07/08/20 25 025 Discontinued Active Problems Problem Noted [...] Plan (10/19/2024 12:10 PM EST): -followed by [facility] -continue tramadol as ordered -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 Trace anterolithesis at [...] Major depressive disorder with psychotic feature s ([facility]/HCC) 08/16/2022 Assessment & Plan (01/30/2024 10:01 AM [...] retiring patient will be transferred to new [facility] Psychiatric Prescriber. Pt is aware that those appointments will be via televisit, and that the provider is not an [facility] employee. He gives verbal consent to [...] Encounters Date Type Department Care Team Description 07/28/2025 Refill [facility] [address] [place] [address] AppramShanda, PIT MANAGER Chronic pain of both knees 07/23/2025 Refill [facility] MEDICINE [address] [place] [phone] KelseymShanda, PIT MANAGER Radiculopathy, cervical region 07/10/2025 11:00 AM EST Office Visit [address] [address] KelseymShanda, PIT MANAGER Type 2 diabetes mellitus without complication, without long-term current use of insulin (HCC) (Primary Dx); Encounter for immunization 07/10/2025 Travel 07/09/2025 9:00 AM EST Clinical Support [address] [address] Cait Velazquez, LUCY Long-term current use of opiate analgesic (Primary Dx) 07/09/2025 Refill [facility] [address] [place] [phone] Cait Velazquez, LUCY Long-term current use of opiate analgesic (Primary Dx) 07/09/2025 Travel 07/07/2025 Refill [facility] [address] [place] [address] KelseymShanda, PIT MANAGER Chronic pain of both knees 06/26/2025 Refill [facility] [address] [place] [phone] KelseymShanda, PIT MANAGER Radiculopathy, cervical region 06/10/[address] [address] Annabel Villegas MD stable lab letter 06/09/2025 1:20 PM EDT Office Visit [facility] [address] [place] [phone] Annabel Villegas MD RUQ abdominal pain (Primary Dx); Primary hypertension 06/09/2025 Results Follow-Up [facility] [address] [place] [phone] Annabel Villegas MD CBC auto differential, Hepatic Function Panel, POCT Urinalysis 06/09/2025 Travel 06/09/2025 Telephone [facility] [address] [place] [address] Shanda Rg NP Nurse Triage 06/09/2025 Refill [facility] [address] [place] [address] Shanda Rg NP Chronic pain of both knees 06/02/2025 Telephone [facility] [address] [place] [address] Shanda Rg NP Care Coordination (ICP Care Plan) 05/19/2025 Refill [facility] [address] [place] [address] Shanda Rg NP Radiculopathy, cervical region 05/16/2025 Results Follow-Up [facility] [address] [place] [address] Shanda Rg NP Cyclic Citrullinated Peptide (CCP) Antibody (IgG), Rheumatoid Factor, C-reactive Protein, Sed Rate by Modified Westergren 05/09/2025 Refill [facility] [address] [place] [address] Shanda Rg NP Chronic pain of both knees from Last 3 Months Immunizations Immunization Administration Dates Next Due Hep B, adult 07/10/2025,04/13/2023 Influenza Injectable Quadriv alant Preservative Free IIV4 [...] Sign Reading Time Taken Comments Blood Pressure 118/78 07/10/2025 11:34 AM EST Pulse 70 07/10/2025 11:34 AM EST Temperature 36.9 C (98.5 F) 07/10/2025 11:34 AM EST Respiratory Rate 16 07/10/2025 11:34 AM EST Oxygen Saturation 97% 07/10/2025 11:34 AM EST Inhaled Oxygen Concentration - - Weight 99.4 kg (219 lb 2 oz) 07/10/2025 11:34 AM EST Height 167.6 cm (5' 6 ) 07/10/2025 11:34 AM EST Body Mass Index 35.37 07/10/2025 11:34 AM EST Plan of Treatment Upcoming Encounters Date Type Department Care Team (Late st Contact Info) Description 09/04/2025 1:00 PM EST Clinical Support [facility] [address] [place] [address] 10/23/2025 1:30 PM EST Office Visit [facility] OPTOMETRY [address] [place] [address] Oly Christiansen, OD [address] [place] [address] 11/06/2025 8:30 AM EDT Clinical Support [facility] MED[facility] [address] [place] [address] Cait Velazquez, LUCY Health Maintenance Due Date Last Done Comments CT Colonography 1965 FIT DNA/Cologuard 1965 FIT 1965 FOBT 1965 Sigmoidoscopy 1965 RSV Patients and Patients Aged 60 years or older (1 - Risk 50-74 years 1-dose series) 2015 COVID-19 Vaccine ( season) 2025 09/02/2022, 2021, 12/07/2020, Additional history exists Influenza Vaccine (#1) 2025 , 05/16/2018, 05/19/2016 Alcohol/Substance Use Screening 09/04/2025 09/04/2024 Diabetes: Foot Exam 09/04/2025 09/04/2024, 09/04/2024, 09/04/2024, Additional history exists Hepatitis B Vaccines (3 of 3 - 19+ 3-dose series) 09/04/2025 07/10/2025, 04/13/2023 Diabetes: Urine Protein Screening 09/05/2025 09/05/2024, 09/05/2024, 11/09/2023, Additional history exists Lipid Panel 09/05/2025 09/05/2024, 10/26, 11/05/2021, Additional history exists Depression Monitoring 09/07/2025 03/07/2025, 025 Disability Screening 01/06/2026 01/06/2025 Diabetes: Hemoglobin A1C 01/07/2026 025, 11/19/2024, 09/04/2024, Additional history exists SDOH Screening 03/07/2026 03/07/2025 Tobacco Screening 07/10/2026 07/10/2025 Colonoscopy 07/12/2026 07/12/2021 Colorectal Cancer Screening 07/12/2026 Eye Exam 09/06/2026 09/06/2024, 08/28, 09/06/2024, Additional history exists DTaP/Tdap/Td Vaccines (2 - Td or Tdap) 07/03/2029 07/03/2019 Zoster Vaccines Completed 09/23/2020, 07/10/2020 Pneumococcal Vaccine: [...] on patient's age to complete this topic Goals Goal Patient Goal Type Associated Problems Recent Progress Patient-Stated? Author Help patients manage their type 2 diabetes Care Plan Help patients manage their type 2 diabetes Cait Muse, RN Weekly blood pressure task Care Plan Weekly blood pressure task Cait Muse, RN Help patients manage their type 2 diabetes Care Plan Help patients manage their type 2 diabetes No Cait Velazquez RN Patient has chronic kidney disease Care Plan Patient has chronic kidney disease No Cait Velazquez RN Weekly blood pressure task Care Plan Weekly blood pressure task No Cait Velazquez RN Patient has chronic kidney disease Care Plan Patient has chronic kidney disease No Cait Velazquez RN Weekly blood pressure task Care Plan Weekly blood pressure task No Cait Velazquez RN Weekly blood pressure task Care Plan Weekly blood pressure task No Cait Velazquez RN Patient has chronic kidney disease Care Plan Patient has chronic kidney disease No Cait Velazquez RN Patient has chronic kidney disease Care Plan Patient has chronic kidney disease No Cait Velazquez RN Weekly blood pressure task Care Plan Weekly blood pressure task No Shanda Rg PIT MANAGER Weekly blood pressure task Care Plan Weekly blood pressure task No Shanda Rg PIT MANAGER Patient has chronic kidney disease Care Plan Patient has chronic kidney disease No Shanda Rg PIT MANAGER Patient has chronic kidney disease Care Plan Patient has chronic kidney disease No Shanda Rg NP Weekly blood pressure task Care Plan Weekly blood pressure task No Cait Velazquez RN Weekly blood pressure task Care Plan Weekly blood pressure task No Cait Velazquez RN Patient has chronic kidney disease Care Plan Patient has chronic kidney disease No Cait Velazquez RN Patient has chronic kidney disease Care Plan Patient has chronic kidney disease No Cait Velazquez RN Procedures Procedure Name Priority Date/Time Associated Diagnosis Comments POCT GLYCATED HEMOGLOBIN, TOTAL Routine 07/10/2025 11:36 AM EST Type 2 diabetes mellitus without complication, without long-term current use of insulin (HCC) POCT GLUCOSE Routine 07/10/2025 11:35 AM EST Type 2 diabetes mellitus without complication, without long-term current use of insulin (HCC) POCT ADRIAN-14 URINE DRUG SCREEN Routine 07/09/2025 8:53 AM EST Long-term current use of opiate analgesic HEPATIC FUNCTION PANEL Routine 06/09/2025 1:58 PM EDT RUQ abdominal pain CBC WITH AUTO DIFFERENTIAL Routine 06/09/2025 1:58 PM EDT RUQ abdominal pain POCT URINALYSIS DIPSTICK Routine 06/09/2025 1:41 PM EDT RUQ abdominal pain ALBUMIN, RANDOM URINE W/CREATININE Routine 09/05/2024 8:35 [...] Recently Relevant to Health Maintenance Results * (ABNORMAL) POCT Hgb A1c (07/10/2025 11:36 AM EST) Hemoglobin A1C 6.5(A) 4.0 - 5.7 % QC Media Lot # [id number] Lot# Expiration Date 5,027 Blood 07/10/2025 11:3 6 AM EST us Shanda Rg NP POINT OF CARE TEST ENTER/EDIT O RDERABLES Final Result * POCT Glucose (07/10/2025 11:35 AM EST) Glucose Blood, POC 107 60 - 200 mg/dL QC Media Lot # [id number] Lot# Expiration Date [id number] Blood Capillary blood specimen / Unknown 07/10/2025 11:35 AM EST formerly [facility] POINT OF CARE TEST ENTER/EDIT O RDERABLES Final Result * POCT ADRIAN-14 Urine Drug Screen (07/09/2025 8:53 AM EST) [facility] THC Negative Negative Cocaine Screen, Urine [...] obtained by clean catch procedure / Unknown 07/09/2025 8:53 AM EST Cait Moreira RN - 07/09/2025 8:53 AM EST UTOX cup Lot#[id number] Exp. 06/03/26 Internal Pass Control formerly [facility] POINT OF CARE TEST ENTER/EDIT O RDERABLES Final Result * CBC auto differential (06/09/2025 1:58 PM EDT) [facility] White Blood Count 9.8 4.8 - 10.8 X10*3/uL [facility] Red Blood Count 5.23 4.60 - 5.80 X10*6/uL [facility] Hemoglobin 14.7 14.0 - 18.0 g/dl [facility] Hematocrit 45.7 42.0 - 52.0 % [facility] Mean Corpuscular Volume 87.4 80.0 - 98.0 fL [facility] Mean Corpuscular Hemoglobin 28.1 27.0 - 33.0 pg [facility] Mean Corpuscular HGB Conc 32.2 31.0 - 36.0 g/dl [facility] Red Cell Distribution Width 13.0 11.0 - 16.0 % [facility] Platelet Count 192 160 - 400 X10*3/uL [facility] Mean Platelet Volume 11.6 9.4 - 12.4 fL [facility] Neutrophils Percent Auto 55.3 45 - 73 % [facility] Imm Gran Pct Auto 0.3 0.0 - 0.4 % [facility] Lymphocytes Percent Auto 35.1 20 - 40 % [facility] Monocytes Percent Auto 6.9 2 - 11 % [facility] Eosinophils Percent Auto 1.7 0 - 4 % [facility] Basophils Percent Auto 0.7 0 - 2 % [facility] NRBC Pct Auto 0.0 0.0 - 0.2 /100WBC [facility] Neutrophils Absolute Auto 5.4 2.0 - 8.3 x10*3/uL [facility] Imm Gran Abs Auto 0.03 0.00 - 0.03 X10*3/uL [facility] Lymphocytes Absolute Auto 3.4 1.2 - 4.9 X10*3/uL [facility] Monocytes Absolute Auto 0.7 0.1 - 1.2 X10*3/uL [facility] Eosinophils Absolute Auto 0.2 0.0 - 0.4 X10*3/uL [facility] Basophils Absolute Auto 0.1 0.0 - 0.2 X10*3/uL [facility] NRBC Abs Auto 0.000 0.0 - 0.012 X10*3/uL [facility] Blood Venous blood specimen / Unknown 06/09/2025 1:58 PM EDT 06/09/2025 3:56 PM EDT us Annabel Villegas MD LAB BLOOD ORDERABLES Fin al Result [facility] [address] [place] [address] [phone] * Hepatic Function Panel (06/09/2025 1:58 PM EDT) Bilirubin, Total 0.3 0.0 - 1.0 mg/dL [facility] Bilirubin, Direct 0.1 0.0 - 0.5 mg/dL [facility] Aspartate Amino Transferase 21 5 - 37 U/L [facility] Alanine Aminotransferase 31 0 - 40 U/L [facility] Total Protein 7.7 6.5 - 8.0 g/dL [facility] Albumin Level 4.6 3.5 - 5.0 g/dL [facility] Alkaline Phosphatase 116 39 - 117 U/L [facility] Blood Venous blood specimen / Unknown 06/09/2025 1:58 PM EDT 06/09/2025 3:56 PM EDT Annabel Villegas MD LAB BLOOD ORDERABLES Fin al Result [facility] [address] [place] [phone] * POCT Urinalysis (06/09/2025 1:41 PM [...] TEST ENTER /EDIT ORDERABLES Final Result * Albumin, Random Urine W/Creatinine (09/05/2024 8:35 AM EST) Creatinine, Urine 117.04 mg/dL [facility] Microalbumin Urine 8.0 mg/L [facility] Microalbum Creatinine Ratio Ur 6.8 <30 ug/mg cr [facility] Comment:Albumin/Creatinine R atio Reference Ranges: Normal: < 30 ug/mg creatinine Microalbuminuria: 30 - 300 ug/mg creatinineClinical Albuminuria: > 300 ug/mg creatinine Urine (Urine, Random) 09/05/2024 8:35 AM EST 09/05/2024 11:21 AM EST [facility] Kelsey PIT MANAGER LAB URINE ORDERABLES Final Resu lt Performing Organization Address [facility] Co de Phone Number [facility] [address] [place] [address] [phone] * (ABNORMAL) Lipid Panel, Standard (09/05/2024 8:35 AM EST) Triglycerides 344(H) <150 mg/dL [facility] Comment:Mild Lipemia.Desirab le Triglyceride: less than 150 mg/dLBorderline High Triglyceride 150-199 mg/dLHigh Triglyceride: 200-499 mg/dLVery High Triglyceride: greater than or equal to 5OO mg/dL Cholesterol 183 <200 mg/dL [facility] Comment:Desirable Cholestero l: less than 200 mg/dLBorderline High Cholesterol: 200-239 mg/dLHigh Cholesterol: greater than 239 mg/dL LDL Cholesterol Calculated 82 <100 mg/dL [facility] Comment:Desirable LDL: less than 100 mg/dLNear Optimal/Above Optimal LDL: 110- 129 mg/dLBorderline High LDL: 130-159 mg/dLHigh LDL: 160-189 mg/dLVery High LDL: greater than or equal to 190 mg/dL HDL Cholesterol 33(L) >40 mg/dL [facility] Comment:Desirable HDL: great er than 40 mg/dL Note: This HDL assay may give artificially low results in patients with liver disease. Blood Venous blood specimen / Unknown 09/05/2024 8:35 AM EST 09/05/2024 11:23 AM EST [facility] ORDERABLES Final Resu lt Performing Organization Address [facility]/ZIP Co de Phone Number [facility] [address] [place] [address] [phone] * Hepatitis C Antibody with Reflex to HCV, RNA, Quantitative, Real-Time PCR (11/09/2023 3:25 PM EDT) [facility] Hepatitis C Antibody Nonreactive Nonreactive [facility] Comment:Antibodies to HCV no t detected; does not exclude early acuteHCV infection. Blood Venous blood specimen / Unknown 11/09/2023 3:25 PM EDT 11/09/2023 3:25 PM EDT formerly [facility] LAB BLOOD ORDERABLES Final Resu lt Performing Organization Address City/[facility]/ZIP Co de Phone Number [facility] [address] [place] [address] [phone] * HIV-1/2 Antigen and Antibodies, Fourth Generation, with Reflexes (11/09/2023 3:25 PM EDT) [facility] HIV AB/AG Nonreactive Nonreactive [facility] Comment:HIV-1 p24 Ag and/or HIV-1/HIV-2 Ab not detected.A test result that is nonreactive does not exclude thepossibility of exposure to or infection with HIV-1 and/orHIV-2. Nonreactive results in this assay for individualswith prior exposure to HIV-1 and/or HIV-2 may be due toantigen and antibody levels that are below the limit ofdetection of this assay.The [employer] HIV Ag/Ab Combo assay result andsupplemental assay results should be interpreted inconjunction with the patient's clinical presentation,history and other laboratory results. If the results areinconsistent with clinical evidence, additional testing issuggested to confirm the result. Blood Venous blood specimen / Unknown 11/09/2023 3:25 PM EDT 11/09/2023 3:25 PM EDT [facility] PIT MANAGER LAB BLOOD ORDERABLES Final Resu lt Performing Organization Address [facility]/ZIP Co de Phone Number [facility] [address] [place] [address] [phone] * Hm Colonoscopy (07/12/2021) Colonoscopy normal us Historical Provider HEALTH MAINTENANCE Edited Result - Final from Last 3 Months or Most Recently Relevant to Health Maintenance Additional Health Concerns Active Problems Noted Date Diagnosed Date Help patients manage their type 2 diabetes 07/09 Weekly blood pressure task 07/09/2025 Help patients manage their type 2 diabetes 07/09 Patient has chronic kidney disease 07/09/2025 Weekly blood pressure task 07/09/2025 Patient has chronic kidney disease 07/09/2025 Weekly blood pressure task 07/09/2025 Weekly blood pressure task 07/09/2025 Patient has chronic kidney disease 07/09/2025 Patient has chronic kidney disease 07/09/2025 Weekly blood pressure task 07/10/2025 Weekly blood pressure task 07/10/2025 Patient has chronic kidney disease 07/10/2025 Patient has chronic kidney disease 07/10/2025 Weekly blood pressure task 07/29/2025 Weekly blood pressure task 07/29/2025 Patient has chronic kidney disease 07/29/2025 Patient has chronic kidney disease 07/29/2025 Insurance [facility] C3 Care Teams Manager Services Relationship Specialty Start Date End Date Shanda Rg NP [address] [place] [address] PCP - General Family Medicine 06/06/23 Jas Cordero FNP [address] [place] [address] Nurse Practitioner Family Medicine 07/24/23 Aixa Ng Inventory Control AssociateParks Worker 09/11/23
--- OUTSIDE RECORDS SUMMARY | 2025-08-05 23:10 | XMS_ITS | Encounter Summary ---
Author Organization [facility] Address [address] [place] [address] Phone Care Team Providers Care Engineering Teacher Name Role Phone Pcp, Unknown Primary Care Provider Unavailabl e Encounter Details Date Type Department Care Team (Late st Contact Info) Description 08/05/2020 Ancillary Orders [facility] [address] [place] [address] [place] [address] Darius Johnson DO [address] [place] [id number] Palpitations Social History Tobacco Use Types Packs/Day [...] Palpitations documented in this encounter Care Teams Engineering Teacher Relationship Specialty Start Date End Date Pcp, Unknown PCP - General 07/06/17 documented as of this encounter Additional Source Comments The information contained in this document represents components of the legal health record. It is not the complete legal health record.[facility]
--- OUTSIDE RECORDS SUMMARY | 2025-08-05 23:10 | XMS_ITS | Encounter Summary ---
Author Organization [facility] Address [address] [place] [phone] Phone Care Team Providers Care C.O.D. Biller Name Role Phone Pcp, Unknown Primary Care Provider Unavailabl e Encounter Details Date Type Department Care Team (Late st Contact Info) Description 08/05/2020 Procedure [facility] [address] [place] [address] [place] [address] Social History Tobacco Use Types Packs/Day Years [...] on filedocumented in this encounter Care Teams C.O.D. Biller Relationship Specialty Start Date End Date Pcp, Unknown PCP - General 07/06/17 documented as of this encounter Additional Source Comments The information contained in this document represents components of the legal health record. It is not the complete legal health record.[facility]
--- OUTSIDE RECORDS SUMMARY | 2025-08-05 23:10 | XMS_ITS | Encounter Summary ---
Author Organization [employer] Address [address] [place] [address] 7t [place] [address] Care Team Providers Care Extract Wringer Name Role Phone Shanda Rg NP Primary Care Provider [phone] Jas Cordero Unavailable Unavailable Encounter Details Date Type Department Care Team ([facility] Contact Info) Description 07/12/2024 Telephone [facility] [address] [place], [place] [phone] Shanda Rg NP [address] [place], [place] [phone] Social History Tobacco Use Types Packs/Day Years [...] Description 09/04/2025 1:00 PM EST Clinical Support [facility] [address] [place] [address] 10/23/2025 1:30 PM EST Office Visit [facility] [address] [place] [address] Kuldip, Oly, OD [address] [place] [address] 11/06/2025 8:30 AM EDT Clinical Support [facility] [address] [place] [address] Cait Velazquez RN documented as of this encounter Visit Diagnoses Not on filedocumented in this encounter Additional Health Concerns Assessment Noted Time PHQ-9 Depression Total Score: 9 01/30/20 24 9:09 AM EDT documented as of this encounter Care Teams Extract Wringer Relationship Specialty Start Date End Date Shanda Rg NP [address] [place] [address] PCP - General Family Medicine 06/06/23 Jas Cordero FNP [address] [place] [address] Nurse Practitioner Family Medicine 07/24/23 Aixa Ng Informix DeveloperSign Artist 09/11/23 documented as of this encounter
--- OUTSIDE RECORDS SUMMARY | 2025-08-05 23:10 | XMS_ITS | Encounter Summary ---
Author Organization [employer] Address [address] [place] [address] 7t [place] [address] Care Team Providers Care General Road Supervisor Name Role Phone Shanda Rg NP Primary Care Provider [phone] Jas Cordero Unavailable Unavailable Encounter Details Date Type Department Care Team ([facility] Contact Info) Description 08/15/2024 Telephone [facility] [address] [place], [place] [phone] Shanda Rg NP [address] [place], [place] [phone] Social History Tobacco Use Types Packs/Day Years [...] 09/04/2025 1:00 PM EST Clinical Support [facility] [address] [place] [address] 10/23/2025 1:30 PM EST Office Visit [facility] [address] [place] [address] Kuldip, Oly, OD [address] [place] [address] 11/06/2025 8:30 AM EDT Clinical Support [facility] [address] [place] [address] Cait Velazquez RN documented as of this encounter Visit Diagnoses Not on filedocumented in this encounter Additional Health Concerns Assessment Noted Time PHQ-9 Depression Total Score: 9 01/30/20 24 9:09 AM EDT documented as of this encounter Care Teams General Road Supervisor Relationship Specialty Start Date End Date Shanda Rg NP [address] [place] [address] PCP - General Family Medicine 06/06/23 Jas Cordero FNP [address] [place] [address] Nurse Practitioner Family Medicine 07/24/23 Aixa Ng Sales Effectiveness ManagerConcrete Carpenter 09/11/23 documented as of this encounter
--- OUTSIDE RECORDS SUMMARY | 2025-08-05 23:10 | XMS_ITS | Encounter Summary ---
Author Organization [employer] Address [address] [place] [address] 7[address] [place] [address] Care Team Providers Care Package Sealer Machine Name Role Phone Carmen Faust MD Primary Care Provider Cali Lundberg BIODIESEL PRODUCTION ASSOCIATE Primary Care Provider Jada Gomez BIODIESEL PRODUCTION ASSOCIATE Primary Care Provider Shanda Roman NP Primary Care Provider [phone] Jas Cordero BIODIESEL PRODUCTION ASSOCIATE Unavailable Unavailable Encounter Details Date Type Department Care Team (Latest Contact Info) Description 07/15/2019 Abstract [facility], Provider, DDS Social History Tobacco [...] Description 09/04/2025 1:00 PM EST Clinical Support [facility] [address] [place] [address] 10/23/2025 1:30 PM EST Office Visit [facility] [address] [place] [address] Oly Christiansen, OD [address] [place] [address] 11/06/2025 8:30 AM EDT Clinical Support [facility] [address] [place] [address] Cait Velazquez, RN documented as of this encounter Visit Diagnoses Not on filedocumented in this encounter Care Teams Package Sealer Machine Relationship Specialty Start Date End Date Carmen Faust MD PCP - General Family Medicine 02/17/20 09/20/22 Cali Steward FNP PCP - General Family Medicine 09/21/22 10/26/22 Jada Erickson FNP PCP - General Family Medicine 10/27/22 06/05/23 Shanda Rg NP [address] [place] [address] PCP - General Family Medicine 06/06/23 Jas Cordero FNP [address] [place] [address] Nurse Practitioner Family Medicine 07/24/23 Aixa Ng Metal Miner BlastingTugboat Dispatcher 09/11/23 documented as of this encounter
== END 2025-08-05 18:17 | disposition home or self-care (01) ==
LOC: HO.MRI 18:16
PROVIDERS: Visit Provider Physician Assistant
DX: S46.009A Unspecified injury of muscle(s) and tendon(s) of the rotator cuff of unspecified shoulder, initial encounter (principal)
CPT/HCPCS: 73221

== ENCOUNTER → 2025-08-05 18:25 | Outpatient (BNV) | payer MEDICAID, SELFPAY | PROVIDERS: Visit Provider Radiology Diagnostic Ultrasound | DX: M19.012 Primary osteoarthritis, left shoulder (principal); M75.32 Calcific tendinitis of left shoulder | CPT/HCPCS: 73221 ==

== ENCOUNTER 2025-08-11 13:36 | Outpatient (AMB) | payer MEDICAID, SELFPAY ==
[2025-08-11 14:12] VITALS: BMI 35.7
--- NOTE | 2025-08-11 14:12 | MHC.OFFVIS ---
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 States his finger locks daily. He wakes up with his finger locked and is painful to pop back up in place. States he also has pain in his palm area 4th MCP on mahoney aspect of hand. He also has numbness and tingling in both hands. No EMG done. 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 States his finger locks daily. He wakes up with his finger locked and is painful to pop back up in place. States he also has pain in his palm area 3rd MCP on mahoney aspect of hand. He also has numbness and tingling in both hands. No EMG done. [facility] Medical History (Updated 08/12/25 @ 12:03 by CHRIS Mar) Low vitamin B12 level Internal hemorrhoid Tubular adenoma Cardiomyopathy Elevated cholesterol Sleep apnea Diabetes HTN (hypertension) Radiculopathy, lumbar region Disc degeneration, lumbar Spondylosis of lumbar spine Spondylosis of cervical spine Surgical History S/P skin biopsy History of hernia repair Hx of cardiac catheterization H/O colonoscopy Hx of knee surgery Hernia Family History Father HTN (hypertension) Diabetes Mother Diabetes HTN (hypertension) Heart disease Social History (Updated 08/11/25 @ 14:18 by YUE Emery) Household Members: Family Alcohol intake: former Patient Tobacco Use Status: Former Tobacco user Tobacco use type: Cigarette Current occupational status: disabled 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 Neuro: Normal sensation of the tips of all digits of the right hand at this time Vascular: Cap refill brisk Pain: Tenderness to palpation of the A1 larisa of right middle finger Pain associated with locking and catching of right middle finger ROM: Patient is able to make a closed fist and extend all digits of the right hand fully However, there is visible and palpable locking and catching of the right middle finger in a flexed position Skin: No lacerations or abrasions. General: No ecchymosis, erythema, or evidence of infection. Psych: Appears grossly normal Affect normal Attitude cooperative Assessment & Plan Assessment & Plan (1) Trigger finger, right middle finger: Code(s): M65.331 - Trigger finger, right middle finger Category: Medical Plan 1. Right middle finger trigger finger I educated the patient about the condition. I discussed both operative and nonoperative treatment options. The patient would like to proceed with surgery. The risks and benefits of operative treatment were discussed with the patient and the patient wishes to proceed with surgery. These risks include, but are not limited to, risk of damage to blood vessels, nerves, tendons, infection, recurrence, incomplete relief of preoperative symptoms, persistent pain, possible need for further surgery, and the risks associated with regional blocks and/or anesthesia. Plan is to take the patient to the operating room at some point in the next few weeks for the following procedures: 1. Right middle finger trigger release under local All of the preoperative paperwork including the consent was discussed today. All of the patient's questions were answered in the clinic today. The patient understands that they will be in contact with our surgical instrument repair specialist to discuss scheduling their procedure. Patient reports diabetes, last A1c 6.8 Denies blood thinners, asthma, heart issues, lung issues, kidney issues, or current smoking. Coding Level of Care Code New Pt Level 4 (58326) Diagnoses Trigger finger, right middle finger M65.331
--- OUTSIDE RECORDS SUMMARY | 2025-08-11 19:48 | XMS_ITS | Encounter Summary ---
Author Organization [employer] Address [address] [place] [address] 7 [place] [address] Care Team Providers Care Communications Electrician Supervisor Name Role Phone Shanda Rg NP Primary Care Provider [phone] Jas Cordero Unavailable Unavailable Reason for Visit * Reason Onset Date Comments Appointment Request 09/25/2023 Encounter Details Date Type Department Care Team ([facility] st Contact Info) Description 09/25/2023 Telephone [facility] 230 [place] [address] Shanda Rg NP [address] [place], [place] [phone] Appointment Request Social History Tobacco Use Types [...] regarding existing conditions. Please contact pt at [phone]. [place] Citizen speaking documented in this encounter Plan of Treatment Upcoming Encounters Date Type Department Care Team (Late st Contact Info) Description 09/04/2025 1:00 PM EST Clinical Support [facility] [address] [place] [address] 10/23/2025 1:30 PM EST Office Visit [facility] [address] [place] [address] Kuldip, Oly, OD 230 [place] [address] 11/06/2025 8:30 AM EDT Clinical Support [facility] [address] [place] [address] Cait Velazquez RN documented as of this encounter Visit Diagnoses Not on filedocumented in this encounter Additional Health Concerns Assessment Noted Time PHQ-9 Depression Total Score: 4 08/01/20 23 11:20 AM EST documented as of this encounter Care Teams Communications Electrician Supervisor Relationship Specialty Start Date End Date Shanda Rg NP 230 [place] [address] PCP - General Family Medicine 06/06/23 Jas Cordero FNP 230 [place] [address] Nurse Practitioner Family Medicine 07/24/23 Aixa Ng Manager HvacBell Tier 09/11/23 documented as of this encounter
--- OUTSIDE RECORDS SUMMARY | 2025-08-11 19:48 | XMS_ITS | Encounter Summary ---
Author Organization [employer] Address [address] [place] [address] 7 [place] [address] Care Team Providers Care Data Security Administrator Name Role Phone Shanda Rg NP Primary Care Provider [phone] Jas Cordero Unavailable Unavailable Reason for Visit * Reason Comments Med Refill Encounter Details Date Type Department Care Team ([facility] st Contact Info) Description 09/22/2023 Refill [facility] [address] [place] [address] Carrie Shrestha MD 230 [place] [address] Seasonal allergic rhinitis, unspecified trigger Social History [...] Description 09/04/2025 1:00 PM EST Clinical Support [facility] [address] [place] [address] 10/23/2025 1:30 PM EST Office Visit [facility] [address] [place] [address] Oly Christiansen, OD 230 [place] [address] 11/06/2025 8:30 AM EDT Clinical Support [facility] [address] [place] [address] Cait Velazquez RN documented as of this encounter Visit Diagnoses Diagnosis Seasonal allergic rhinitis, unspecified trigger documented in this encounter Additional Health Concerns Assessment Noted Time PHQ-9 Depression Total Score: 4 08/01/20 23 11:20 AM EST documented as of this encounter Care Teams Data Security Administrator Relationship Specialty Start Date End Date Shanda Rg NP 230 [place] [address] PCP - General Family Medicine 06/06/23 Jas Cordero FNP [address] [place] [address] Nurse Practitioner Family Medicine 07/24/23 Aixa Ng Sheet Metal FormerWarehouse Man 09/11/23 documented as of this encounter
--- OUTSIDE RECORDS SUMMARY | 2025-08-11 19:48 | XMS_ITS | Encounter Summary ---
Author Organization [employer] Address [address] [place] [address] 7 [place] [address] Care Team Providers Care Residential Sales Name Role Phone Shanda Rg NP Primary Care Provider [phone] Jas Cordero Unavailable Unavailable Reason for Visit * Reason Comments Med Refill Encounter Details Date Type Department Care Team (Late st Contact Info) Description 09/09/2023 Refill [facility] [address] [place] [address] NameJerardo MD [address] [place] [address] Radiculopathy, cervical region Social History Tobacco Use [...] Description 09/04/2025 1:00 PM EST Clinical Support [facility] [address] [place] [address] 10/23/2025 1:30 PM EST Office Visit [facility] [address] [place] [address] Oly Christiansen, OD [address] [place] [address] 11/06/2025 8:30 AM EDT Clinical Support [facility] [address] [place] [address] Cait Velazquez RN documented as of this encounter Visit Diagnoses Diagnosis Radiculopathy, cervical region Brachial neuritis or radiculitis nos documented in this encounter Additional Health Concerns Assessment Noted Time PHQ-9 Depression Total Score: 4 08/01/20 23 11:20 AM EST documented as of this encounter Care Teams Residential Sales Relationship Specialty Start Date End Date Shanda Rg NP 230 [place] [address] PCP - General Family Medicine 06/06/23 Jas Cordero FNP [address] [place] [address] Nurse Practitioner Family Medicine 07/24/23 Aixa Ng Lunch Truck DriverBuilding Analyst/Supervisor 09/11/23 documented as of this encounter
--- OUTSIDE RECORDS SUMMARY | 2025-08-11 19:48 | XMS_ITS | Encounter Summary ---
Author Organization [employer] Address [address] [place] [address] 7 [place] [address] Care Team Providers Care Grab Operator Name Role Phone Shanda Rg NP Primary Care Provider [phone] Jas Cordero Unavailable Unavailable Reason for Visit * Reason Comments Med Refill Encounter Details Date Type Department Care Team (Late st Contact Info) Description 08/01/2023 Refill [facility] [address] [place] [address] Lianet Mae FNP [address] [place] [address] Pain; Cervical radiculopathy; Lumbar radiculopathy Social History [...] Description 09/04/2025 1:00 PM EST Clinical Support [facility] [address] [place] [address] 10/23/2025 1:30 PM EST Office Visit [facility] [address] [place] [address] Oly Christiansen, OD [address] [place] [address] 11/06/2025 8:30 AM EDT Clinical Support [facility] [address] [place] [address] Cait Velazquez RN documented as of this encounter Visit Diagnoses Diagnosis Pain Generalized pain Cervical radiculopathy Brachial neuritis or radiculitis nos Lumbar radiculopathy Thoracic or lumbosacral neuritis or radiculitis, unspecified documented in this encounter Additional Health Concerns Assessment Noted Time PHQ-9 Depression Total Score: 4 08/01/20 23 11:20 AM EST documented as of this encounter Care Teams Grab Operator Relationship Specialty Start Date End Date Shanda Rg NP [address] [place] [address] PCP - General Family Medicine 06/06/23 Jas Cordero FNP [address] [place] [address] Nurse Practitioner Family Medicine 07/24/23 Aixa Ng Graining OperatorRadiology Director 09/11/23 documented as of this encounter
--- OUTSIDE RECORDS SUMMARY | 2025-08-11 19:49 | XMS_ITS | Encounter Summary ---
Author Organization [employer] [facility] Address [address] [place] [address] [address] Care Team Providers Care Supervisor Tile And Mottle Name Role Phone Carmen Faust MD Primary Care Provider Cali Lundberg Primary Care Provider Jada Gomez FOOD QUALITY TESTER Primary Care Provider Shanda Roman NP Primary Care Provider [phone] Jas Cordero Unavailable Unavailable Reason for Visit * Reason Comments Med Refill Encounter Details Date Type Department Care Team (Late st Contact Info) Description 09/01/2022 Refill [facility] [address] [place] [address] Jas Cordero FNP Social History Tobacco Use [...] Description 09/04/2025 1:00 PM EST Clinical Support [facility] [address] [place] [address] 10/23/2025 1:30 PM EST Office Visit [facility] [address] [place] [address] Oly Christiansen, OD [address] [place] [address] 11/06/2025 8:30 AM EDT Clinical Support [facility] [address] [place] [address] Cait Velazquze, RN documented as of this encounter Visit Diagnoses Not on filedocumented in this encounter Additional Health Concerns Assessment Noted Time PHQ-9 Depression Total Score: 12 022 9:34 AM EST documented as of this encounter Care Teams Supervisor Tile And Mottle Relationship Specialty Start Date End Date Carmen Faust MD PCP - General Family Medicine 02/17/20 09/20/22 Cali Steward FNP PCP - General Family Medicine 09/21/22 10/26/22 Jada Erickson FNP PCP - General Family Medicine 10/27/22 06/05/23 Shanda Rg NP 230 [place] [address] PCP - General Family Medicine 06/06/23 Jas Cordero FNP [address] [place] [address] Nurse Practitioner Family Medicine 07/24/23 Aixa Ng Facility Practice SpecialistOnline Marketing Director 09/11/23 documented as of this encounter
--- OUTSIDE RECORDS SUMMARY | 2025-08-11 19:49 | XMS_ITS | Encounter Summary ---
Author Organization [facility] Address [address] [place] [address] Phone Care Team Providers Care Smudger Name Role Phone Pcp, Unknown Primary Care Provider Unavailabl e Encounter Details Date Type Department Care Team (Late st Contact Info) Description 08/05/2020 Ancillary Orders [facility] [address] [place] [address] [place] [address] Darius Johnson DO [address] [place] [address] Palpitations Social History Tobacco Use Types Packs/Day [...] Palpitations documented in this encounter Care Teams Smudger Relationship Specialty Start Date End Date Pcp, Unknown PCP - General 07/06/17 documented as of this encounter Additional Source Comments The information contained in this document represents components of the legal health record. It is not the complete legal health record.[facility]
--- OUTSIDE RECORDS SUMMARY | 2025-08-11 19:49 | XMS_ITS | Encounter Summary ---
Author Organization [email or web address] Address [address] [place] [address] 7 [place] [address] Care Team Providers Care Nut Sorter Operator Name Role Phone Jada Erickson RN STARS Primary Care Provider Shanda Roman ENERGY CONSERVATION REPRESENTATIVE Primary Care Provider [phone] Jas Cordero RN STARS Unavailable Unavailable Reason for Visit * Reason Comments Med Refill Encounter Details Date Type Department Care Team (Late st Contact Info) Description 05/30/2023 Refill [facility] [address] [place] [address] Jada Erickson FNP Pain; Cervical radiculopathy; Lumbar [...] Clinical Support [facility] [address] [place] [address] 10/23/2025 1:30 PM EST Office Visit [facility] [address] [place] [address] Kuldip, Oly, OD 230 [place] [address] 11/06/2025 8:30 AM EDT Clinical Support [facility] [address] [place] [address] Cait Velazquez RN documented as of this encounter Visit Diagnoses Diagnosis Pain Generalized pain Cervical radiculopathy Brachial neuritis or radiculitis nos Lumbar radiculopathy Thoracic or lumbosacral neuritis or radiculitis, unspecified documented in this encounter Additional Health Concerns Assessment Noted Time PHQ-9 Depression Total Score: 0 04/13/20 9:39 AM EDT documented as of this encounter Care Teams Nut Sorter Operator Relationship Specialty Start Date End Date Jada Erickson FNP PCP - General Family Medicine 10/27/22 06/05/23 Shanda Rg NP [address] [place] [address] PCP - General Family Medicine 06/06/23 Jas Cordero FNP [address] [place] [address] Nurse Practitioner Family Medicine 07/24/23 Aixa Ng Retread Mold OperatorMiddleware Architect 09/11/23 documented as of this encounter
--- OUTSIDE RECORDS SUMMARY | 2025-08-11 19:49 | XMS_ITS | Encounter Summary ---
Author Organization [employer] Address [address] [place] [address] 7 [place] [address] Care Team Providers Care Look Out Tower Fire Watcher Name Role Phone Shanda Rg NP Primary Care Provider [phone] Jas Cordero Unavailable Unavailable Reason for Visit * Reason Onset Date Comments Med Refill 02/15/2024 Encounter Details Date Type Department Care Team (Late st Contact Info) Description 02/15/2024 Telephone [facility] [address] [place] [address] Shanda Rg NP [address] [place], [place] [phone] Med Refill Social History Tobacco Use Types [...] 10:43 AM EDT Medication was sent to [facility] on 01/30/24 #30 with 5 refills. * Telephone Encounter - Susan Mendoza - 02/15/2024 10:39 AM EDT TC from pt requesting medication refill. Medications needing refill : zolpidem (Ambien) 10 MG tablet To be sent to: [facility] - [place], [place] - [address] [facility] documented in this encounter Plan of Treatment Upcoming Encounters Date Type Department Care Team (Late st Contact Info) Description 09/04/2025 1:00 PM EST Clinical Support [facility] [address] [place], [place] [phone] 10/23/2025 1:30 PM EST Office Visit [facility] [address] [place] [address] Oly Christiansen, OD [address] [place] [address] 11/06/2025 8:30 AM EDT Clinical Support [facility] [address] [place] [address] Cait Velazquez, LUCY documented as of this encounter Visit Diagnoses Not on filedocumented in this encounter Additional Health Concerns Assessment Noted Time PHQ-9 Depression Total Score: 9 01/30/20 24 9:09 AM EDT documented as of this encounter Care Teams Look Out Tower Fire Watcher Relationship Specialty Start Date End Date Shanda Rg NP [address] [place] [address] PCP - General Family Medicine 06/06/23 Jas Cordero FNP [address] [place] [address] Nurse Practitioner Family Medicine 07/24/23 Aixa Ng Gage MakerYield Improvement Engineer 09/11/23 documented as of this encounter
--- OUTSIDE RECORDS SUMMARY | 2025-08-11 19:49 | XMS_ITS | Encounter Summary ---
Author Organization [facility] Address [address] [place] [phone] Phone Care Team Providers Care Ditching Machine Engineer Name Role Phone Pcp, Unknown Primary Care Provider Unavailabl e Encounter Details Date Type Department Care Team (Late st Contact Info) Description 08/05/2020 Procedure [facility] [address] [place] [address] [place] [address] Social History Tobacco Use Types Packs/Day Years [...] on filedocumented in this encounter Care Teams Ditching Machine Engineer Relationship Specialty Start Date End Date Pcp, Unknown PCP - General 07/06/17 documented as of this encounter Additional Source Comments The information contained in this document represents components of the legal health record. It is not the complete legal health record.[facility]
--- OUTSIDE RECORDS SUMMARY | 2025-08-11 19:49 | XMS_ITS | Encounter Summary ---
Author Organization [employer] Address [address] [place] [address] 7t [place] [address] Care Team Providers Care Plate Former Name Role Phone Shanda Rg NP Primary Care Provider [phone] Jas Cordero Unavailable Unavailable Reason for Visit * Reason Comments Med Refill Encounter Details Date Type Department Care Team ([facility] st Contact Info) Description 08/10/2025 Refill [facility] [address] [place] [address] Shanda Rg NP [address] [place] [address] Type 2 diabetes mellitus without complication, without long-term current use of insulin (HCC); Vitamin D deficiency Social History Tobacco Use Types Packs/Day Years [...] Description 09/04/2025 1:00 PM EST Clinical Support [facility] [address] [place] [address] 10/23/2025 1:30 PM EST Office Visit [facility] OPT[facility] [address] [place] [address] Kuldip, Oly, OD [address] [place] [address] 11/06/2025 8:30 AM EDT Clinical Support [facility] [address] [place] [address] Cait Velazquez RN documented as of this encounter Goals Goal Patient Goal Type Associated Problems Recent Progress Patient-Stated? Author Help patients manage their type 2 diabetes Care Plan Help patients manage their type 2 diabetes Cait Muse, LUCY Weekly blood pressure task Care Plan Weekly blood pressure task No Cait Velazquez RN Help patients manage their type 2 diabetes Care Plan Help patients manage their type 2 diabetes No Cait Velazquez RN Patient has chronic kidney disease Care Plan Patient has chronic kidney disease Cait Muse RN Weekly blood pressure task Care Plan Weekly blood pressure task No Cait Velaqzuez RN Patient has chronic kidney disease Care [...] Weekly blood pressure task No Shanda Rg NP Weekly blood pressure task Care Plan Weekly blood pressure task No Shanda Rg WARDROBE IMAGE CONSULTANT Patient has chronic kidney disease Care Plan Patient has chronic kidney disease No Shnada Rg WARDROBE IMAGE CONSULTANT Patient has chronic kidney disease Care Plan [...] chronic kidney disease No Cait Velazquez RN documented as of this encounter Visit Diagnoses Diagnosis Type 2 diabetes mellitus without complication, without long-term current use of insulin (HCC) Vitamin D deficiency documented in this encounter Additional Health Concerns Active Problems Noted Date [...] 07/29/2025 Patient has chronic kidney disease 07/29/2025 Assessment Noted Time PHQ-9 Depression Total Score: 17 025 3:44 PM EDT documented as of this encounter Care Teams Plate Former Relationship Specialty Start Date End Date Shanda Rg NP [address] [place] [address] PCP - General Family Medicine 06/06/23 Jas Cordero FNP [address] [place] [address] Nurse Practitioner Family Medicine 07/24/23 Aixa Ng Hospital Admissions OfficerQuality Coordinator 09/11/23 documented as of this encounter
--- OUTSIDE RECORDS SUMMARY | 2025-08-11 19:49 | XMS_ITS | Encounter Summary ---
Author Organization [employer] Address [address] [place] [address] 7t [place] [address] Care Team Providers Care Internal Control Analyst Name Role Phone Shanda Rg NP Primary Care Provider [phone] Jas Cordero Unavailable Unavailable Encounter Details Date Type Department Care Team ([facility] Contact Info) Description 07/12/[address] [facility] MEDICINE [address] [place], [place] [phone] Shanda Rg NP [address] [place], [place] [phone] Social History Tobacco Use Types Packs/Day Years [...] Description 09/04/2025 1:00 PM EST Clinical Support [facility] MED[facility]INE [address] [place] [address] 10/23/2025 1:30 PM EST Office Visit [facility] OPTOMETRY [address] [place] [address] Kuldip, Oly, OD [address] [place] [address] 11/06/2025 8:30 AM EDT Clinical Support [facility] MEDICINE [address] [place] [address] Cait Velazquez RN documented as of this encounter Visit Diagnoses Not on filedocumented in this encounter Additional Health Concerns Assessment Noted Time PHQ-9 Depression Total Score: 9 01/30/20 24 9:09 AM EDT documented as of this encounter Care Teams Internal Control Analyst Relationship Specialty Start Date End Date Shanda Rg NP [address] [place] [address] PCP - General Family Medicine 06/06/23 Jas Cordero FNP [address] [place] [address] Nurse Practitioner Family Medicine 07/24/23 Aixa Ng Aligning InspectorFlying Ii Instructor 09/11/23 documented as of this encounter
--- OUTSIDE RECORDS SUMMARY | 2025-08-11 19:49 | XMS_ITS | Encounter Summary ---
Author Organization [employer] Address [address] [place] [address] [address], [place] [address] Care Team Providers Care Career Services Manager Name Role Phone Carmen Faust MD Primary Care Provider Cali Lundberg SENSOR TECHNICIAN Primary Care Provider Jada Gomez SENSOR TECHNICIAN Primary Care Provider Marissa Shanda Mensah NP Primary Care Provider [phone] Jas Cordero SENSOR TECHNICIAN Unavailable Unavailable Encounter Details Date Type Department Care Team (Late st Contact Info) Description 08/05/2022 Orders Only [facility] MEDICINE [address] [place] [phone] Matthew Dunbar MD [address] [place] [address] Social History Tobacco Use Types Packs/Day Years [...] Description 09/04/2025 1:00 PM EST Clinical Support [facility] [address] [place] [address] 10/23/2025 1:30 PM EST Office Visit [facility] OPTOMETRY [address] [place] [address] [phone] Oly Christiansen OD [address] [place] [address] 11/06/2025 8:30 AM EDT Clinical Support [facility] [address] [place] [address] Cait Velazquez, RN documented as of this encounter Visit Diagnoses Not on filedocumented in this encounter Care Teams Career Services Manager Relationship Specialty Start Date End Date Carmen Faust MD PCP - General Family Medicine 02/17/20 09/20/22 Cali Steward FNP PCP - General Family Medicine 09/21/22 10/26/22 Jada Erickson FNP PCP - General Family Medicine 10/27/22 06/05/23 Shanda Rg NP [address] [place] [address] PCP - General Family Medicine 06/06/23 Jas Cordero FNP [address] [place] [address] Nurse Practitioner Family Medicine 07/24/23 Aixa Ng Silo PainterSupply Clerk 09/11/23 documented as of this encounter
--- OUTSIDE RECORDS SUMMARY | 2025-08-11 19:49 | XMS_ITS | Clinical Summary ---
Author Organization [employer] Address [address] [place] [address] 7 [place] [address] Care Team Providers Care Telephone Instrument Supervisor Name Role Phone Shanda Rg NP Primary Care Provider [phone] Jas Cordero Unavailable Unavailable Allergies No [...] hours. 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 [...] 2 diabetes mellitus without complication, unspecified whether nursing home insulin use USE DIRECTED THREE TIMES DAILY [...] 3:55 PM EST 07/29/20 25 026 Active gabapentin (Neurontin) 300 MG [...] Plan (10/19/2024 12:10 PM EST): -followed by [facility] pain management group -continue tramadol as ordered -encouraged to continue COMMUNICATION STUDIES PROFESSOR appointments and encouraged to give some thought [...] 2:38 PM EDT): -was being followed by [facility] orthopedics -referral placed for care reestablishment Assessment [...] that showed slight lumbar dextrocurvature with trace [id number] lateral lithesis at L4-L5. Trace anterolithesis at [...] Major depressive disorder with psychotic feature s ([facility]) 08/16/2022 Assessment & Plan (01/30/2024 10:01 AM [...] retiring patient will be transferred to new [facility] Psychiatric Prescriber. Pt is aware that those appointments will be via televisit, and that the provider is not an [facility] employee. He gives verbal consent [...] Encounters Date Type Department Care Team Description 08/10/2025 Refill [facility] MED [facility] PEDS [address] [place] [address] Appram, Shanda, RELOCATION MANAGER Type 2 diabetes mellitus without complication, without long-term current use of insulin (HCC); Vitamin D deficiency 07/28/2025 Refill [facility] [address] [place] [address] Appram, Shanda, RELOCATION MANAGER Chronic pain of both knees 07/23/2025 Refill [facility] MED[facility] [address] [place] [address] Appram, Shanda, RELOCATION MANAGER Radiculopathy, cervical region 07/10/2025 11:00 AM EST Office Visit [address] [address] Appram, Shanda, RELOCATION MANAGER Type 2 diabetes mellitus without complication, without long-term current use of insulin (HCC) (Primary Dx); Encounter for immunization 07/10/2025 Travel 07/09/2025 9:00 AM EST Clinical Support [address] [address] Cait Velazquez, LUCY Long-term current use of opiate analgesic (Primary Dx) 07/09/2025 Refill [facility] [address] [place] [address] Cait Velazquez, LUCY Long-term current use of opiate analgesic (Primary Dx) 07/09/2025 Travel 07/07/2025 Refill [facility] PED[facility] [address] [place] [address] Appram, Shanda, RELOCATION MANAGER Chronic pain of both knees 06/26/2025 Refill [facility] [address] [place] [phone] Appram, Shanda, RELOCATION MANAGER Radiculopathy, cervical region 06/10/[address] [address] Annabel Villegas MD stable lab letter 06/09/2025 1:20 PM EDT Office Visit [facility] [address] [place] [address] Annabel Villegas MD RUQ abdominal pain (Primary Dx); Primary hypertension 06/09/2025 Results Follow-Up [facility] [address] [place] [phone] Annabel Villegas MD CBC auto differential, Hepatic Function Panel, POCT Urinalysis 06/09/2025 Travel 06/09/2025 Telephone [facility] MED[facility]INE [address] [place] [address] Shanda Rg NP Nurse Triage 06/09/2025 Refill [facility] [address] [place] [address] Shanda Rg NP Chronic pain of both knees 06/02/2025 Telephone [facility] [address] [place] [address] Shanda Rg NP Care Coordination (ICP Care Plan) 05/19/2025 Refill [facility] [address], [place] [phone] Shanda Rg NP Radiculopathy, cervical region 05/16/2025 Results Follow-Up [facility] [address] [place] [address] Shanda Rg NP Cyclic Citrullinated Peptide (CCP) Antibody (IgG), Rheumatoid Factor, C-reactive Protein, Sed Rate by Modified Westergren from Last 3 Months Immunizations Immunization Administration [...] Description 09/04/2025 1:00 PM EST Clinical Support [facility] [address] [place] [address] 10/23/2025 1:30 PM EST Office Visit [facility] OPTOMETRY [address] [place] [address] Oly Christiansen, OD [address] [place] [address] 11/06/2025 8:30 AM EDT Clinical Support [facility] [address] [place] [address] Cait Velazquez, LUCY Health Maintenance Due Date [...] patients manage their type 2 diabetes Cait Muse RN Weekly blood pressure task Care Plan Weekly blood pressure task Cait Muse, LUCY Help patients manage their type 2 diabetes Care Plan Help patients manage their type 2 diabetes No Cait Velazquez, RN Patient has chronic kidney disease Care [...] blood pressure task No Shanda Rg NP Patient has chronic kidney disease Care Plan Patient has chronic kidney disease No Shanda Rg NP Patient has chronic kidney disease Care Plan [...] 5,027 Blood 07/10/2025 11:3 6 AM EST [facility] POINT OF CARE TEST ENTER/EDIT O RDERABLES Final Result * POCT Glucose (07/10/2025 11:35 AM EST) Glucose Blood, POC 107 60 - 200 mg/dL QC Media Lot # [id number] Lot# Expiration Date [id number] Blood Capillary blood specimen / Unknown 07/10/2025 11:35 AM EST Shanda Kelsey RELOCATION MANAGER POINT OF CARE TEST ENTER/EDIT O RDERABLES Final Result * POCT ADRIAN-14 Urine Drug Screen (07/09/2025 8:53 AM EST) Pathologist [facility] THC Negative Negative Cocaine Screen, Urine [...] - 07/09/2025 8:53 AM EST UTOX cup Lot#[id number] Exp. 06/03/26 Internal Pass Control Shanda Appram RELOCATION MANAGER POINT OF CARE TEST ENTER/EDIT O RDERABLES Final Result * CBC auto differential (06/09/2025 1:58 PM EDT) Pathologist [facility] White Blood Count 9.8 4.8 - 10.8 X10*3/uL [facility] Red Blood Count 5.23 4.60 - 5.80 X10*6/uL [facility] Hemoglobin 14.7 14.0 - 18.0 g/dl [facility] Hematocrit 45.7 42.0 - 52.0 % [facility] Mean Corpuscular Volume 87.4 80.0 - 98.0 fL [facility] Mean Corpuscular Hemoglobin 28.1 27.0 - 33.0 pg [facility] Mean Corpuscular HGB Conc 32.2 31.0 - 36.0 g/dl [facility] Red Cell Distribution Width 13.0 11.0 - 16.0 % [facility] Platelet Count 192 160 - 400 X10*3/uL [facility] Mean Platelet Volume 11.6 9.4 - 12.4 fL [facility] Neutrophils Percent Auto 55.3 45 - 73 % [facility] Imm Gran Pct Auto 0.3 0.0 - 0.4 % [facility] Lymphocytes Percent Auto 35.1 20 - 40 % [facility] Monocytes Percent Auto 6.9 2 - 11 % [facility] Eosinophils Percent Auto 1.7 0 - 4 % [facility] Basophils Percent Auto 0.7 0 - 2 % [facility] NRBC Pct Auto 0.0 0.0 - 0.2 /100WBC [facility] Neutrophils Absolute Auto 5.4 2.0 - 8.3 x10*3/uL [facility] Imm Gran Abs Auto 0.03 0.00 - 0.03 X10*3/uL [facility] Lymphocytes Absolute Auto 3.4 1.2 - 4.9 X10*3/uL [facility] Monocytes Absolute Auto 0.7 0.1 - 1.2 X10*3/uL [facility] Eosinophils Absolute Auto 0.2 0.0 - 0.4 X10*3/uL [facility] Basophils Absolute Auto 0.1 0.0 - 0.2 X10*3/uL [facility] NRBC Abs Auto 0.000 0.0 - 0.012 X10*3/uL [facility] Blood Venous blood specimen / Unknown 06/09/2025 1:58 PM EDT 06/09/2025 3:56 PM EDT us Annabel Villegas MD LAB BLOOD ORDERABLES Fin al Result [facility] [address] [place] [phone] * Hepatic Function Panel (06/09/2025 1:58 PM EDT) Bilirubin, Total 0.3 0.0 - 1.0 mg/dL [facility] Bilirubin, Direct 0.1 0.0 - 0.5 mg/dL [facility] Aspartate Amino Transferase 21 5 - 37 U/L [facility] Alanine Aminotransferase 31 0 - 40 U/L [facility] Total Protein 7.7 6.5 - 8.0 g/dL [facility] Albumin Level 4.6 3.5 - 5.0 g/dL [facility] Alkaline Phosphatase 116 39 - 117 U/L [facility] Blood Venous blood specimen / Unknown 06/09/2025 1:58 PM EDT 06/09/2025 3:56 PM EDT Annabel Villegas MD LAB BLOOD ORDERABLES Fin al Result [facility] [address] [place] [phone] * POCT Urinalysis (06/09/2025 1:41 PM [...] 8:35 AM EST) Creatinine, Urine 117.04 mg/dL [facility] Microalbumin Urine 8.0 mg/L [facility] Microalbum Creatinine Ratio Ur 6.8 <30 ug/mg cr [facility] Comment:Albumin/Creatinine R atio Reference Ranges: Normal: < 30 ug/mg creatinine Microalbuminuria: 30 - 300 ug/mg creatinineClinical Albuminuria: > 300 ug/mg creatinine Urine (Urine, Random) 09/05/2024 8:35 AM EST 09/05/2024 11:21 AM EST [facility] Appra RELOCATION MANAGER LAB URINE ORDERABLES Final Resu lt [facility] [address] [place] [address] [phone] * (ABNORMAL) Lipid Panel, Standard (09/05/2024 8:35 AM EST) Triglycerides 344(H) <150 mg/dL [facility] Comment:Mild Lipemia.Desirab le Triglyceride: less than 150 mg/dLBorderline High Triglyceride 150-199 mg/dLHigh Triglyceride: 200-499 mg/dLVery High Triglyceride: greater than or equal to 5OO mg/dL Cholesterol 183 <200 mg/dL [facility] Comment:Desirable Cholestero l: less than 200 mg/dLBorderline High Cholesterol: 200-239 mg/dLHigh Cholesterol: greater than 239 mg/dL LDL Cholesterol Calculated 82 <100 mg/dL [facility] Comment:Desirable LDL: less than 100 mg/dLNear Optimal/Above Optimal LDL: 110- 129 mg/dLBorderline High LDL: 130-159 mg/dLHigh LDL: 160-189 mg/dLVery High LDL: greater than or equal to 190 mg/dL HDL Cholesterol 33(L) >40 mg/dL [facility] Comment:Desirable HDL: great er than 40 mg/dL Note: This HDL assay may give artificially low results in patients with liver disease. Blood Venous blood specimen / Unknown 09/05/2024 8:35 AM EST 09/05/2024 11:23 AM EST Shanda Cole RELOCATION MANAGER LAB BLOOD ORDERABLES Final Resu lt [facility] [address] [place] [address] [phone] * Hepatitis C Antibody with Reflex to HCV, RNA, Quantitative, Real-Time PCR (11/09/2023 3:25 PM EDT) Hepatitis C Antibody Nonreactive Nonreactive [facility] Comment:Antibodies to HCV no t detected; does not exclude early acuteHCV infection. Blood Venous blood specimen / Unknown 11/09/2023 3:25 PM EDT 11/09/2023 3:25 PM EDT [facility] LAB BLOOD ORDERABLES Final Resu lt Performing Organization Address [facility] Co de Phone Number [facility] [address] [place] [address] [phone] * HIV-1/2 Antigen and Antibodies, Fourth Generation, with Reflexes (11/09/2023 3:25 PM EDT) HIV AB/AG Nonreactive Nonreactive [facility] Comment:HIV-1 p24 Ag and/or HIV-1/HIV-2 Ab not detected.A test result that is nonreactive does not exclude thepossibility of exposure to or infection with HIV-1 and/orHIV-2. Nonreactive results in this assay for individualswith prior exposure to HIV-1 and/or HIV-2 may be due toantigen and antibody levels that are below the limit ofdetection of this assay.The [employer] HIV Ag/Ab Combo assay result andsupplemental assay results should be interpreted inconjunction with the patient's clinical presentation,history and other laboratory results. If the results areinconsistent with clinical evidence, additional testing issuggested to confirm the result. Blood Venous blood specimen / Unknown 11/09/2023 3:25 PM EDT 11/09/2023 3:25 PM EDT [facility] LAB BLOOD ORDERABLES Final Resu lt Performing Organization Address [facility]/ZIP Co de Phone Number [facility] [address] [place] [phone] [phone] * Hm Colonoscopy (07/12/2021) Colonoscopy normal [...] Patient has chronic kidney disease 07/29/2025 Insurance [facility] C3 Care Teams Telephone Instrument Supervisor Relationship Specialty Start Date End Date Shanda Rg NP [address] [place] [address] PCP - General Family Medicine 06/06/23 Jas Cordero FNP [address] [place] [address] Nurse Practitioner Family Medicine 07/24/23 Aixa Ng Gut SnatcherIndustrial Health And Safety Professor 09/11/23
--- OUTSIDE RECORDS SUMMARY | 2025-08-11 19:49 | XMS_ITS | Encounter Summary ---
Author Organization [employer] Address [address] [place] [address] 7t [place] [address] Care Team Providers Care Documentation Coordinator Name Role Phone Shanda Rg NP Primary Care Provider [phone] Jas Cordero Unavailable Unavailable Reason for Visit * Reason Comments Med Refill Encounter Details Date Type Department Care Team ([facility] st Contact Info) Description 06/08/2023 Refill [facility] MEDICINE [address] [place] [address] Jada Erickson FNP Seasonal allergic rhinitis, unspecified [...] Description 09/04/2025 1:00 PM EST Clinical Support [facility] MEDICINE [address] [place] [address] 10/23/2025 1:30 PM EST Office Visit [facility] OPTOMETRY [address] [place] [address] Oly Christiansen, OD [address] [place] [address] 11/06/2025 8:30 AM EDT Clinical Support [facility] MEDICINE [address] [place] [address] Cait Velazquez RN documented as of this encounter Visit Diagnoses Diagnosis Seasonal allergic rhinitis, unspecified trigger documented in this encounter Additional Health Concerns Assessment Noted Time PHQ-9 Depression Total Score: 10 023 9:23 AM EDT documented as of this encounter Care Teams Documentation Coordinator Relationship Specialty Start Date End Date Shanda Rg NP [address] [place] [address] PCP - General Family Medicine 06/06/23 Jas Cordero FNP [address] [place] [address] Nurse Practitioner Family Medicine 07/24/[address] ResearcherSenior Datastage Developer 09/11/23 documented as of this encounter
--- OUTSIDE RECORDS SUMMARY | 2025-08-11 19:49 | XMS_ITS | Encounter Summary ---
Author Organization [employer] Address [address] [place] [address] 7 [place] [address] Care Team Providers Care Volunteer Specialist Name Role Phone Shanda Rg NP Primary Care Provider [phone] Jas Cordero Unavailable Unavailable Reason for Visit * Reason Onset Date Comments Med Refill 03/25/2024 Encounter Details Date Type Department Care Team (Late st Contact Info) Description 03/25/2024 Telephone [facility] MEDICINE [address] [place] [address] Shanda Rg NP [address] [place], [place] [phone] Med Refill Social History Tobacco Use Types [...] qty - 112 for 28 dayssupply. From [facility] pharmacy. * Telephone Encounter - Jean Rosario - 03/25/2024 1:38 PM EDT TC from pt requesting medication refill. Medications needing refill: traMADol (Ultram) 50 MG tablet To be sent to: [facility] Pharmacy documented in this encounter Plan of Treatment Upcoming Encounters Date Type Department Care Team (Late st Contact Info) Description 09/04/2025 1:00 PM EST Clinical Support [facility] MEDICINE [address] [place] [address] 10/23/2025 1:30 PM EST Office Visit [facility] OPTOMETRY [address] [place] [address] Kuldip, Oly, OD [address] [place], [place] [phone] 11/06/2025 8:30 AM EDT Clinical Support [facility] MEDICINE [address] [place] [address] Cait Velazquez RN documented as of this encounter Visit Diagnoses Not on filedocumented in this encounter Additional Health Concerns Assessment Noted Time PHQ-9 Depression Total Score: 9 01/30/20 9:09 AM EDT documented as of this encounter Care Teams Volunteer Specialist Relationship Specialty Start Date End Date Shanda Rg NP [address] [place] [address] PCP - General Family Medicine 06/06/23 Jas Cordero FNP [address] [place] [address] Nurse Practitioner Family Medicine 07/24/23 Aixa Ng Campaign AnalystEdger Operator 09/11/23 documented as of this encounter
--- OUTSIDE RECORDS SUMMARY | 2025-08-11 19:49 | XMS_ITS | Encounter Summary ---
Author Organization [facility] [facility] Address [address] [place] [address] 7 [place] [address] Care Team Providers Care Business Process Lead Name Role Phone Jada Erickson SENIOR CARE PROVIDER Primary Care Provider Shanda Roman BATON TEACHER Primary Care Provider [phone] Jas Cordero SENIOR CARE PROVIDER Unavailable Unavailable Reason for Visit * Reason Comments Med Refill Encounter Details Date Type Department Care Team ([facility] Contact Info) Description 01/24/[address] [address] Jada Erickson FNP Pain; Cervical radiculopathy; Lumbar [...] Upcoming Encounters Date Type Department Care Team ([facility] Contact Info) Description 09/04/2025 1:00 PM EST Clinical Support [facility] MEDICINE [address] [place] [address] 10/23/2025 1:30 PM EST Office Visit [facility] OPTOMETRY [address] [place] [address] Oly Christiansen, OD 230 [place] [address] 11/06/2025 8:30 AM EDT Clinical Support [facility] MEDICINE [address] [place] [address] Cait Velazquez RN documented as of this encounter Visit Diagnoses Diagnosis Pain Generalized pain Cervical radiculopathy Brachial neuritis or radiculitis nos Lumbar radiculopathy Thoracic or lumbosacral neuritis or radiculitis, unspecified documented in this encounter Additional Health Concerns Assessment Noted Time PHQ-9 Depression Total Score: 9 01/18/20 12:56 PM EDT documented as of this encounter Care Teams Business Process Lead Relationship Specialty Start Date End Date Jada Erickson FNP PCP - General Family Medicine 10/27/22 06/05/23 Shanda Rg NP [address] [place] [address] PCP - General Family Medicine 06/06/23 Jas Cordero FNP [address] [place] [address] Nurse Practitioner Family Medicine 07/24/23 Aixa Ng Stable HelperGreen End Worker 09/11/23 documented as of this encounter
--- OUTSIDE RECORDS SUMMARY | 2025-08-11 19:49 | XMS_ITS | Encounter Summary ---
Author Organization [employer] Address [address] [place] [address] 7[address] [place] [address] Care Team Providers Care Sociocultural Anthropology Professor Name Role Phone Carmen Faust MD Primary Care Provider Cali Lundberg STRIP MACHINE TENDER Primary Care Provider Jada Gomez STRIP MACHINE TENDER Primary Care Provider Shanda Roman NP Primary Care Provider [phone] Jas Cordero STRIP MACHINE TENDER Unavailable Unavailable Encounter Details Date Type Department Care Team (Latest Contact Info) Description 07/15/2019 Abstract [facility] CONVERSIONS Dental, Provider, DDS Social [...] Description 09/04/2025 1:00 PM EST Clinical Support [facility] MEDICINE [address] [place] [address] 10/23/2025 1:30 PM EST Office Visit [facility] OPTOMETRY [address] [place] [address] Oly Christiansen, OD 230 [place] [address] 11/06/2025 8:30 AM EDT Clinical Support [facility] MEDICINE [address] [place] [address] Cait Velazquez, RN documented as of this encounter Visit Diagnoses Not on filedocumented in this encounter Care Teams Sociocultural Anthropology Professor Relationship Specialty Start Date End Date Carmen Faust MD PCP - General Family Medicine 02/17/20 09/20/22 Cali Steward FNP PCP - General Family Medicine 09/21/22 10/26/22 Jada Erickson FNP PCP - General Family Medicine 10/27/22 06/05/23 Shanda Rg NP [address] [place] [address] PCP - General Family Medicine 06/06/23 Jas Cordero FNP [address] [place] [address] Nurse Practitioner Family Medicine 07/24/23 Aixa Ng Metal Fabricator ApprenticeFront End Loader Driver 09/11/23 documented as of this encounter
--- OUTSIDE RECORDS SUMMARY | 2025-08-11 19:49 | XMS_ITS | Clinical Summary ---
Author Organization [facility] Address [address] [place] [address] [place] [address] Phone Care Team Providers Care Solid Waste Technician Name Role Phone Pcp, Unknown Primary Care [...] file Medical Devices Not on file Insurance [facility] CAREPLUS Member Subscriber Plan / Payer (Ef fective 2017-Present) Name:Davidson Gillespie Relation to Subscriber:Self Name:Davidson Gillespie Payer ID:[id number] Group ID:[id number] Type:Medicaid Address: [address] [facility] C3 ACO [facility] CAREPLUS Member Subscriber Plan / Payer (Ef fective 2017-Present) Name:Davidson Gillespie Relation to Subscriber:Self Name:Davidson Gillespie Payer ID:[id number] Group ID:[id number] Type:Medicaid Address: [address] C3 ACO [facility] CAREPLUS Member Subscriber Plan / Payer (Ef fective 2017-Present) Name:Davidson Gillespie Relation to Subscriber:Self Name:Davidson Gillespie Payer ID:[id number] Group ID:[id number] Type:Medicaid Address: [address] C3 ACO [facility] CAREPLUS Member Subscriber Plan / Payer (Ef fective 2017-Present) Name:Davidson Gillespie Relation to Subscriber:Self Name:Davidson Gillespie Payer ID:[id number] Group ID:[id number] Type:Medicaid Address: [address] C3 ACO [facility] CAREPLUS Member Subscriber Plan / Payer (Ef fective 2017-Present) Name:Davidson Gillespie Relation to Subscriber:Self Name:Davidson Gillespie Payer ID:[id number] Group ID:[id number] Type:Medicaid Address: [address] [place] [address] [place] [address] CAREPLUS Member Subscriber Plan / Payer (Ef fective 2017-Present) Name:Davidson Gillespie Relation to Subscriber:Self Name:Davidson Gillespie Payer ID:[id number] Group ID:[id number] Type:Medicaid Address: [address] C3 ACO [facility] CAREPLUS Member Subscriber Plan / Payer (Ef fective 2017-Present) Name:Davidson Gillespie Relation to Subscriber:Self Name:Davidson Gillespie Payer ID:[id number] Group ID:[id number] Type:Medicaid Address: [address] [place], [place] [address]PLUS Member Subscriber Plan / Payer (Ef fective 2017-Present) Name:Davidson Gillespie Relation to Subscriber:Self Name:Davidson Gillespie Payer ID:[id number] Group ID:[id number] Type:Medicaid Address: [address] C3 ACO [facility] CAREPLUS C3 ACO Care Teams Solid Waste Technician Relationship Specialty Start Date End Date Pcp, Unknown PCP - General 07/06/17 Additional Source Comments The information contained in this document represents components of the legal health record. It is not the complete legal health record.[facility]
--- OUTSIDE RECORDS SUMMARY | 2025-08-11 19:49 | XMS_ITS | Encounter Summary ---
Author Organization [facility] Address [address] [facility] [address] [place] [address] Phone Care Team Providers Care Room Service Clerk Name Role Phone Pcp, Unknown Primary Care Provider Unavailabl e Encounter Details Date Type Department Care Team (Late st Contact Info) Description 07/06/2017 Ancillary Orders [facility] [address] [place] [address] [place] [address] Darius Johnson DO [address] [place] [address] Palpitations Social History Tobacco Use Types Packs/Day [...] Palpitations documented in this encounter Care Teams Room Service Clerk Relationship Specialty Start Date End Date Pcp, Unknown PCP - General 07/06/17 documented as of this encounter Additional Source Comments The information contained in this document represents components of the legal health record. It is not the complete legal health record.[facility]
--- OUTSIDE RECORDS SUMMARY | 2025-08-11 19:49 | XMS_ITS | Encounter Summary ---
Author Organization [employer] Address [address] [place] [address] 7 [place] [address] Care Team Providers Care Supervisor Buffing And Pasting Name Role Phone Shanda Rg NP Primary Care Provider [phone] Jas Cordero Unavailable Unavailable Encounter Details Date Type Department Care Team ([facility] Contact Info) Description 06/09/2025 Results Follow-Up [facility] MEDICINE [address] [place] [address] Annabel Villegas MD 230 [place] [address] CBC auto differential, Hepatic Function Panel, POCT [...] 09/04/2025 1:00 PM EST Clinical Support [facility] MEDICINE [address] [place] [address] 10/23/2025 1:30 PM EST Office Visit [facility] OPTOMETRY [address] [place] [address] Oly Christiansen, OD [address] [place] [address] 11/06/2025 8:30 AM EDT Clinical Support [facility] MEDICINE [address] [place] [address] Cait Velazquez RN documented as of this encounter Visit Diagnoses Not on filedocumented in this encounter Additional Health Concerns Assessment Noted Time PHQ-9 Depression Total Score: 17 025 3:44 PM EDT documented as of this encounter Care Teams Supervisor Buffing And Pasting Relationship Specialty Start Date End Date Shanda Rg NP [address] [place] [address] PCP - General Family Medicine 06/06/23 Jas Cordero FNP [address] [place] [address] Nurse Practitioner Family Medicine 07/24/23 Aixa Ng Gamma Facilities OperatorBlow Moulding Machine Operator 09/11/23 documented as of this encounter
--- OUTSIDE RECORDS SUMMARY | 2025-08-11 19:49 | XMS_ITS | Encounter Summary ---
Author Organization [employer] Address [address] [place] [address] 7t [place] [address] Care Team Providers Care Artists' Booking Representative Name Role Phone Shanda Rg NP Primary Care Provider [phone] Jas Cordero Unavailable Unavailable Encounter Details Date Type Department Care Team ([facility] Contact Info) Description 08/15/[address] [facility] MEDICINE [address] [place], [place] [phone] Shanda Rg NP [address] [place], [place] [phone] Social History Tobacco Use Types Packs/Day Years [...] 09/04/2025 1:00 PM EST Clinical Support [facility] MEDICINE [address] [place] [address] 10/23/2025 1:30 PM EST Office Visit [facility] OPTOMETRY [address] [place] [address] Kuldip, Oly, OD [address] [place] [address] 11/06/2025 8:30 AM EDT Clinical Support [facility] MEDICINE [address] [place] [address] Cait Velazquez RN documented as of this encounter Visit Diagnoses Not on filedocumented in this encounter Additional Health Concerns Assessment Noted Time PHQ-9 Depression Total Score: 9 01/30/20 24 9:09 AM EDT documented as of this encounter Care Teams Artists' Booking Representative Relationship Specialty Start Date End Date Shanda Rg NP [address] [place] [address] PCP - General Family Medicine 06/06/23 Jas Cordero FNP [address] [place] [address] Nurse Practitioner Family Medicine 07/24/23 Aixa Ng Fur StretcherRoll Plugger Machine Operator 09/11/23 documented as of this encounter
--- OUTSIDE RECORDS SUMMARY | 2025-08-11 19:49 | XMS_ITS | Encounter Summary ---
Author Organization [employer] Address [address] [place] [address] 7 [place] [address] Care Team Providers Care Student Services Director Name Role Phone Dre Jada Huntley INSTALLATION AND SERVICE TECHNICIAN Primary Care Provider Marissa Shanda Mensah NP Primary Care Provider [phone] Jas Cordero Unavailable Unavailable Reason for Visit * Reason Comments Med Refill Encounter Details Date Type Department Care Team (Late st Contact Info) Description 10/31/2022 Refill [facility] MEDICINE [address] [place] [address] Jas Cordero FNP Major depressive disorder with [...] 11/02/2022 11:52 AM EST FYI, 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 Urine/Pill count WNL. Bp 152/108, stated he had taken his blood pressure medication this morning. documented in this encounter Plan of Treatment Upcoming Encounters Date Type Department Care Team (Late st Contact Info) Description 09/04/2025 1:00 PM EST Clinical Support [facility] MEDICINE [address] [place] [address] 10/23/2025 1:30 PM EST Office Visit [facility] OPTOMETRY [address] [place] [address] Kuldip, Oly, OD 230 [place] [address] 11/06/2025 8:30 AM EDT Clinical Support [facility] MEDICINE [address] [place] [address] Cait Velazquez RN documented as of this encounter Visit Diagnoses Diagnosis Major depressive disorder with psychotic features (CMS/HCC) (HCC) documented in this encounter Additional Health Concerns Assessment Noted Time PHQ-9 Depression Total Score: 9 09/27/19 9:22 AM EST documented as of this encounter Care Teams Student Services Director Relationship Specialty Start Date End Date Jada Erickson FNP PCP - General Family Medicine 10/27/22 06/05/23 Shanda Rg NP [address] [place] [address] PCP - General Family Medicine 06/06/23 Jas Cordero FNP [address] [place] [address] Nurse Practitioner Family Medicine 07/24/23 Aixa Ng Client Reporting AssociatePsychologist Private Practice 09/11/23 documented as of this encounter
--- OUTSIDE RECORDS SUMMARY | 2025-08-11 19:49 | XMS_ITS | Encounter Summary ---
Author Organization [employer] Address [address] [place] [address] 7 [place] [address] Care Team Providers Care Housing Inspectors Name Role Phone Jaad Erickson BOTTLER Primary Care Provider Shanda Roman MICROBIOLOGY PROFESSOR Primary Care Provider [phone] Jas Cordero BOTTLER Unavailable Unavailable Reason for Visit * Reason Comments Med Refill Encounter Details Date Type Department Care Team (Late st Contact Info) Description 05/30/2023 Refill [facility] MEDICINE [address] [place] [address] Jada Erickson FNP Pain; Cervical radiculopathy; Lumbar [...] Description 09/04/2025 1:00 PM EST Clinical Support [facility] MEDICINE [address] [place] [address] 10/23/2025 1:30 PM EST Office Visit [facility] OPTOMETRY [address] [place] [address] Kuldip, Oly, OD 230 [place] [address] 11/06/2025 8:30 AM EDT Clinical Support [facility] MEDICINE [address] [place] [address] Cait Velazquez RN documented as of this encounter Visit Diagnoses Diagnosis Pain Generalized pain Cervical radiculopathy Brachial neuritis or radiculitis nos Lumbar radiculopathy Thoracic or lumbosacral neuritis or radiculitis, unspecified documented in this encounter Additional Health Concerns Assessment Noted Time PHQ-9 Depression Total Score: 0 04/13/20 9:39 AM EDT documented as of this encounter Care Teams Housing Inspectors Relationship Specialty Start Date End Date Jada Erickson FNP PCP - General Family Medicine 10/27/22 06/05/23 Shanda Rg NP [address] [place] [address] PCP - General Family Medicine 06/06/23 Jas Cordero FNP [address] [place] [address] Nurse Practitioner Family Medicine 07/24/23 Aixa Ng Singing TeacherCounter Attendant 09/11/23 documented as of this encounter
== END 2025-08-11 14:36 | disposition home or self-care (01) ==
LOC: HO.HOS 13:36
PROVIDERS: PCP Nurse Practitioner
DX: M65.331 Trigger finger, right middle finger (principal)
CPT/HCPCS: 99214

== ENCOUNTER → 2025-08-11 13:36 | Outpatient (BNVA) | payer MEDICAID, SELFPAY | PROVIDERS: PCP Nurse Practitioner | DX: M65.331 Trigger finger, right middle finger (principal); E11.9 Type 2 diabetes mellitus without complications | CPT/HCPCS: 99212 ==

== ENCOUNTER 2025-08-15 09:41 | Outpatient (REF) | payer MEDICAID, SELFPAY ==
--- NOTE | ~2025-08-15 | US_ITS ---
CLINICAL HISTORY: RUQ pain x 1 week, rule out cholecystitis US abdomen complete Comparison: None provided Findings: The visualized pancreas is normal. The aorta and inferior vena cava are normal caliber. The liver is borderline prominent measuring up to 17 cm and mildly increased in echotexture with regions of focal fatty sparing. There is no intrahepatic bile duct dilatation. The common duct is 2.0 mm in diameter. The gallbladder is normal. There is no sonographic Sanches sign. The main portal vein is antegrade. The right kidney is 12.1 cm in length. Nonspecific nonshadowing echogenic 5 mm focus. The left kidney is 10.3 cm in length. The spleen is top-normal in size. No ascites. IMPRESSION: No evidence of cholecystitis. Borderline hepatomegaly and mild hepatic steatosis. 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 This document has been electronically signed by: Stiven Strickland MD on 08/15/2025 11:07:35
--- OUTSIDE RECORDS SUMMARY | 2025-08-15 10:31 | XMS_ITS | Encounter Summary ---
Author Organization [employer] Address [address] [place] [address] 7t [place] [address] Care Team Providers Care Yarn Dry Room Worker Name Role Phone Shanda Rg NP Primary Care Provider [phone] Jas Cordero Unavailable Unavailable Reason for Visit * Reason Comments Med Refill Encounter Details Date Type Department Care Team ([facility] st Contact Info) Description 08/10/[address] [facility] [address] [place] [address] Shanda Rg NP [address] [place] [address] Type 2 diabetes mellitus without complication, without [...] 09/04/2025 1:00 PM EST Clinical Support [facility] MEDICINE [address] [place] [address] 10/23/2025 1:30 PM EST Office Visit [facility] OPTOMETRY [address] [place] [address] Kuldip, Oly, OD [address] [place] [address] 11/06/2025 8:30 AM EDT Clinical Support [facility] MEDICINE [address] [place] [address] Cait Velazquez RN documented as of this [...] Weekly blood pressure task No Shanda Rg CHEMICAL ETCH OPERATOR Patient has chronic kidney disease Care Plan Patient has chronic kidney disease No Shanda Rg CHEMICAL ETCH OPERATOR Patient has chronic kidney disease Care Plan [...] documented as of this encounter Care Teams Yarn Dry Room Worker Relationship Specialty Start Date End Date Shanda Rg NP [address] [place] [address] PCP - General Family Medicine 06/06/23 Jas Cordero FNP [address] [place] [address] Nurse Practitioner Family Medicine 07/24/23 Aixa Ng Senior Military AnalystBalance Recesser 09/11/23 documented as of this encounter
--- OUTSIDE RECORDS SUMMARY | 2025-08-15 10:31 | XMS_ITS | Encounter Summary ---
Author Organization [employer] [facility] Address [address] [place] [address] 7[place] [address] Care Team Providers Care Auto Hiker Name Role Phone Jada Erickson HOISTING LABORER Primary Care Provider Shanda Roman BIOMEDICAL EQUIPMENT SUPPORT SPECIALIST Primary Care Provider [phone] Jas Cordero HOISTING LABORER Unavailable Unavailable Reason for Visit * Reason Comments Med Refill Encounter Details Date Type Department Care Team ([facility] Contact Info) Description 05/30/2023 Refill [facility] MEDICINE [address] [place] [address] Jada Erickson FNP Pain; Cervical radiculopathy; Lumbar [...] Encounters Date Type Department Care Team ([facility] Contact Info) Description 09/04/2025 1:00 PM EST Clinical Support [facility] MEDICINE [address] [place] [address] 10/23/2025 1:30 PM EST Office Visit [facility] OPTOMETRY [address] [place] [address] Oly Christiansen, OD 230 [place] [address] 11/06/2025 8:30 AM EDT Clinical Support [facility] MEDICINE [address] [place] [address] Cait Velazquez RN documented as of this encounter Visit Diagnoses Diagnosis Pain Generalized pain Cervical radiculopathy Brachial neuritis or radiculitis nos Lumbar radiculopathy Thoracic or lumbosacral neuritis or radiculitis, unspecified documented in this encounter Additional Health Concerns Assessment Noted Time PHQ-9 Depression Total Score: 0 04/13/20 9:39 AM EDT documented as of this encounter Care Teams Auto Hiker Relationship Specialty Start Date End Date Jada Erickson FNP PCP - General Family Medicine 10/27/22 06/05/23 Shanda Rg NP [address] [place] [address] PCP - General Family Medicine 06/06/23 Jas Cordero FNP [address] [place] [address] Nurse Practitioner Family Medicine 07/24/23 Aixa Ng Rubber Printing Machine OperatorSupervisor Powder And Primer Canning 09/11/23 documented as of this encounter
--- OUTSIDE RECORDS SUMMARY | 2025-08-15 10:31 | XMS_ITS | Encounter Summary ---
Author Organization [facility] Address [address] [place] [address] 7 [place] [address] Care Team Providers Care Basketball Referee Name Role Phone Jada Erickson INSURANCE ASSOCIATE Primary Care Provider Shanda Roman RADIOLOGY RN Primary Care Provider [phone] Jas Cordero INSURANCE ASSOCIATE Unavailable Unavailable Reason for Visit * Reason Comments Med Refill Encounter Details Date Type Department Care Team ([facility] Contact Info) Description 01/24/[address] [address] Jaad Erickson FNP Pain; Cervical radiculopathy; Lumbar radiculopathy [...] Upcoming Encounters Date Type Department Care Team ([facility] Contact Info) Description 09/04/2025 1:00 PM EST Clinical Support [facility] MEDICINE [address] [place] [address] 10/23/2025 1:30 PM EST Office Visit [facility] OPTOMETRY [address] [place] [address] Oly Christiansen, OD 230 [place] [address] 11/06/2025 8:30 AM EDT Clinical Support [facility] MEDICINE [address] [place] [address] Cait Velazquez RN documented as of this encounter Visit Diagnoses Diagnosis Pain Generalized pain Cervical radiculopathy Brachial neuritis or radiculitis nos Lumbar radiculopathy Thoracic or lumbosacral neuritis or radiculitis, unspecified documented in this encounter Additional Health Concerns Assessment Noted Time PHQ-9 Depression Total Score: 9 01/18/20 12:56 PM EDT documented as of this encounter Care Teams Basketball Referee Relationship Specialty Start Date End Date Jada Erickson FNP PCP - General Family Medicine 10/27/22 06/05/23 Shanda Rg NP 230 [place] [address] PCP - General Family Medicine 06/06/23 Jas Cordero FNP [address] [place] [address] Nurse Practitioner Family Medicine 07/24/23 Aixa Ng Assurance OfficerGin Inspector 09/11/23 documented as of this encounter
--- OUTSIDE RECORDS SUMMARY | 2025-08-15 10:31 | XMS_ITS | Encounter Summary ---
Author Organization [employer] [facility] Address [address] [place] [address] [address], [place] [address] Care Team Providers Care Mineral Industry Teacher Name Role Phone Jada Erickson MEDICAL STAFF CREDENTIALING COORDINATOR Primary Care Provider Shanda Roman BLOCK BREAKER OPERATOR Primary Care Provider [phone] Jas Cordero MEDICAL STAFF CREDENTIALING COORDINATOR Unavailable Unavailable Reason for Visit * Reason Comments Med Refill Encounter Details Date Type Department Care Team ([facility] Contact Info) Description 05/30/2023 Refill [facility] [address] [place] [address] Jada Erickson FNP Pain; Cervical radiculopathy; Lumbar [...] Upcoming Encounters Date Type Department Care Team ([facility] Contact Info) Description 09/04/2025 1:00 PM EST Clinical Support [facility] [address] [place] [address] 10/23/2025 1:30 PM EST Office Visit [facility] OPTOMETRY [address] [place] [address] Oly Christiansen, OD [address] [place] [address] 11/06/2025 8:30 AM EDT Clinical Support [facility] [address] [place] [address] Cait Velazquez RN documented as of this encounter Visit Diagnoses Diagnosis Pain Generalized pain Cervical radiculopathy Brachial neuritis or radiculitis nos Lumbar radiculopathy Thoracic or lumbosacral neuritis or radiculitis, unspecified documented in this encounter Additional Health Concerns Assessment Noted Time PHQ-9 Depression Total Score: 0 04/13/20 9:39 AM EDT documented as of this encounter Care Teams Mineral Industry Teacher Relationship Specialty Start Date End Date Jada Erickson FNP PCP - General Family Medicine 10/27/22 06/05/23 Shanda Rg NP [address] [place] [address] PCP - General Family Medicine 06/06/23 Jas Cordero FNP [address] [place] [address] Nurse Practitioner Family Medicine 07/24/23 Aixa Ng Airplane Cabin AttendantSupplier Diversity Director 09/11/23 documented as of this encounter
--- OUTSIDE RECORDS SUMMARY | 2025-08-15 10:31 | XMS_ITS | Encounter Summary ---
Author Organization [employer] Address [address] [place] [address] 7t [place] [address] Care Team Providers Care Auto Repair Technician Name Role Phone Shanda Rg NP Primary Care Provider [phone] Jas Cordero Unavailable Unavailable Reason for Visit * Reason Comments Med Refill Encounter Details Date Type Department Care Team ([facility] st Contact Info) Description 06/08/2023 Refill [facility] [address] [place] [address] Jada Erickson FNP Seasonal allergic rhinitis, unspecified [...] Description 09/04/2025 1:00 PM EST Clinical Support [facility] [address] [place] [address] 10/23/2025 1:30 PM EST Office Visit [facility] OPTOMETRY [address] [place] [address] Oly Christiansen, OD [address] [place] [address] 11/06/2025 8:30 AM EDT Clinical Support [facility] [address] [place] [address] Cait Velazquez RN documented as of this encounter Visit Diagnoses Diagnosis Seasonal allergic rhinitis, unspecified trigger documented in this encounter Additional Health Concerns Assessment Noted Time PHQ-9 Depression Total Score: 10 023 9:23 AM EDT documented as of this encounter Care Teams Auto Repair Technician Relationship Specialty Start Date End Date Shanda Rg NP [address] [place] [address] PCP - General Family Medicine 06/06/23 Jas Cordero FNP [address] [place] [address] Nurse Practitioner Family Medicine 07/24/23 Aixa Ng Browning ProcessorNuclear Engineer 09/11/23 documented as of this encounter
--- OUTSIDE RECORDS SUMMARY | 2025-08-15 10:31 | XMS_ITS | Encounter Summary ---
Author Organization [employer] Address [address] [place] [address] 7[address] [place] [address] Care Team Providers Care Automotive Vehicle Inspector Name Role Phone Shanda Rg NP Primary Care Provider [phone] Jas Cordero Unavailable Unavailable Encounter Details Date Type Department Care Team ([facility] Contact Info) Description 07/12/2024 Telephone [facility] [address] [place], [place] [phone] Shanda Rg NP [address] [place], [place] [phone] Social History Tobacco Use Types Packs/Day Years [...] EST Clinical Support [facility] [address] [place] [address] 10/23/2025 1:30 PM EST Office Visit [facility] [address] [place] [address] Kuldip, Oly, OD [address] [place] [address] 11/06/2025 8:30 AM EDT Clinical Support [facility] [address] [place] [address] Cait Velazquez RN documented as of this encounter Visit Diagnoses Not on filedocumented in this encounter Additional Health Concerns Assessment Noted Time PHQ-9 Depression Total Score: 9 01/30/20 24 9:09 AM EDT documented as of this encounter Care Teams Automotive Vehicle Inspector Relationship Specialty Start Date End Date Shanda Rg NP [address] [place] [address] PCP - General Family Medicine 06/06/23 Jas Cordero FNP [address] [place] [address] Nurse Practitioner Family Medicine 07/24/23 Aixa Ng Relay MotormanInformation Technology Program Manager 09/11/23 documented as of this encounter
--- OUTSIDE RECORDS SUMMARY | 2025-08-15 10:31 | XMS_ITS | Clinical Summary ---
Author Organization [employer] Address [address] [place] [address] 7 [place] [address] Care Team Providers Care Agricultural Research Technologist Name Role Phone Shanda Rg NP Primary Care Provider [phone] Jas Cordero Unavailable Unavailable Allergies No known [...] hours. 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 1 kit 10/30/19 25 Active folic acid (Folvite) 1 MG [...] without complication, unspecified whether detention insulin use USE DIRECTED THREE TIMES DAILY [...] 3:55 PM EST 07/29/20 25 026 Active losartan (Cozaar) 100 MG tablet TAKE 1 TABLET BY MOUTH EVERY MORNING 90 tablet 1 08/12/20 25 Active metFORMIN (Glucophage) 500 MG tabletIndicati ons:Type 2 diabetes mellitus without complication, without long-term current use of insulin (HCC) TAKE 1 TABLET BY MOUTH EVERY MORNING WITH MEALS 90 tablet 1 08/12/20 25 Active D3 Super Strength 50 MCG (2000 UT) capsuleIndicat ions:Vitamin D deficiency TAKE 1 CAPSULE BY MOUTH EVERY MORNING 90 capsule 1 08/12/20 25 Active metFORMIN (Glucophage) 500 MG tabletIndicati ons:Type 2 diabetes mellitus without complication, without long-term current use of insulin (HCC) TAKE 1 TABLET BY MOUTH EVERY MORNING WITH A MEAL 90 tablet 1 01/15/20 25 025 Discontinued D3 Super Strength 50 MCG (2000 UT) capsuleIndicat ions:Vitamin D deficiency TAKE 1 CAPSULE BY MOUTH EVERY MORNING 90 capsule 1 01/15/20 25 025 Discontinued losartan (Cozaar) 100 MG tablet TAKE 1 TABLET BY MOUTH EVERY MORNING 90 tablet 1 01/16/20 25 025 Discontinued gabapentin (Neurontin) 300 MG [...] HOURS NEEDED FOR SEVERE PAIN 28 tablet 3:54 PM EST 07/08/20 25 025 Discontinued [...] -continue tramadol as ordered -encouraged to continue FOUNDATION ENGINEER appointments and encouraged to give some thought [...] that showed slight lumbar dextrocurvature with trace [id number] lateral lithesis at L4-L5. Trace anterolithesis at [...] Major depressive disorder with psychotic feature s ([facility]) 08/16/2022 Assessment & Plan (01/30/2024 10:01 AM [...] retiring patient will be transferred to new [facility] Psychiatric Prescriber. Pt is aware that those appointments will be via televisit, and that the provider is not an [facility] employee. He gives verbal consent to [...] Type Department Care Team Description 08/10/2025 Refill [facility] [address] [place] [address] Shanda Rg NP Type 2 diabetes mellitus without complication, without long-term current use of insulin (HCC); Vitamin D deficiency 07/28/2025 Refill [facility] [address] [place] [address] Shanda Rg NP Chronic pain of both knees 07/23/2025 Refill [facility] [address] [place] [address] Shanda Rg NP Radiculopathy, cervical region 07/10/2025 11:00 AM EST Office Visit [address] [address] Shanda Rg NP Type 2 diabetes mellitus without complication, without long-term current use of insulin (HCC) (Primary Dx); Encounter for immunization 07/10/2025 Travel 07/09/2025 9:00 AM EST Clinical Support [address] [address] Cait Velazquez, RN Long-term current use of opiate analgesic (Primary Dx) 07/09/2025 Refill [facility] [address] [place] [address] Cait Velazquez, RN Long-term current use of opiate analgesic (Primary Dx) 07/09/2025 Travel 07/07/2025 Refill [facility] [address] [place] [address] Shanda Rg NP Chronic pain of both knees 06/26/2025 Refill [facility] [address] [place] [address] Shanda gR NP Radiculopathy, cervical region 06/10/2025 Telephone [facility] [address] [place] [address] Annabel Villegas MD stable lab letter 06/09/2025 1:20 PM EDT Office Visit [facility] [address] [place] [address] Annabel Villegas MD RUQ abdominal pain (Primary Dx); Primary hypertension 06/09/2025 Results Follow-Up [facility] [address] [place] [address] Annabel Villegas MD CBC auto differential, Hepatic Function Panel, POCT Urinalysis 06/09/2025 Travel 06/09/2025 Telephone [facility] [address] [place] [address] Shanda Rg NP Nurse Triage 06/09/2025 Refill [facility] [address] [place] [address] Shanda Rg NP Chronic pain of both knees 06/02/2025 Telephone [facility] [address] [place] [address] Shanda Rg NP Care Coordination (ICP Care Plan) 05/19/2025 Refill [facility] [address] [place] [address] Shanda Rg NP Radiculopathy, cervical region 05/16/2025 Results Follow-Up [address] [address] Shanda Rg NP Cyclic Citrullinated Peptide (CCP) [...] is your housing situation today? I have conradokey osborn 03/07/[address] you [...] Description 09/04/2025 1:00 PM EST Clinical Support [facility] [address] [place] [address] 10/23/2025 1:30 PM EST Office Visit [facility] OPTOMET[facility] [address] [place] [address] Kuldip, Oly, OD [address] [place] [address] 11/06/2025 8:30 AM EDT Clinical Support [facility] [address] [place] [address] Cait Velazquez, RN Health Maintenance Due Date [...] type 2 diabetes No Cait Velazquez RN Weekly blood pressure [...] Care Plan Weekly blood pressure task No AppraShanda newton NATURAL SCIENCES MANAGER Patient has chronic kidney disease Care Plan Patient has chronic kidney disease No Shanda Rg NATURAL SCIENCES MANAGER Patient has chronic kidney disease Care Plan Patient has chronic kidney disease No Shanda Rg NATURAL SCIENCES MANAGER Weekly blood pressure task Care Plan [...] Media Lot # [id number] Lot# Expiration Date [id number] Blood 07/10/2025 11:3 6 AM EST Shanda Rg NATURAL SCIENCES MANAGER POINT OF CARE TEST ENTER/EDIT O RDERABLES Final Result * POCT Glucose (07/10/2025 11:35 AM EST) Pathologist [facility] Glucose Blood, POC 107 60 - 200 mg/dL QC Media Lot # [id number] Lot# Expiration Date 645, Blood Capillary blood specimen / Unknown 07/10/2025 11:35 AM EST [facility] POINT OF CARE TEST ENTER/EDIT O RDERABLES Final Result * POCT ADRIAN-14 Urine Drug Screen (07/09/2025 8:53 AM EST) Pathologist [facility] THC Negative Negative Cocaine Screen, Urine Negative [...] - 07/09/2025 8:53 AM EST UTOX cup Lot#[id number] Exp. 06/03/26 Internal Pass Control [facility] POINT OF CARE TEST ENTER/EDIT O RDERABLES Final Result * CBC auto differential (06/09/2025 1:58 PM EDT) Pathologist [facility] White Blood Count 9.8 4.8 - 10.8 X10*3/uL [facility] Red Blood Count 5.23 4.60 - 5.80 X10*6/uL [facility] Hemoglobin 14.7 14.0 - 18.0 g/dl [facility] Hematocrit 45.7 42.0 - 52.0 % [facility] Mean Corpuscular Volume 87.4 80.0 - 98.0 fL [facility] Mean Corpuscular Hemoglobin 28.1 27.0 - 33.0 pg [facility] Mean Corpuscular HGB Conc 32.2 31.0 - 36.0 g/dl [facility] Red Cell Distribution Width 13.0 11.0 - 16.0 % [facility] Platelet Count 192 160 - 400 X10*3/uL [facility] Mean Platelet Volume 11.6 9.4 - 12.4 fL [facility] Neutrophils Percent Auto 55.3 45 - 73 % [facility] Imm Gran Pct Auto 0.3 0.0 - 0.4 % [facility] Lymphocytes Percent Auto 35.1 20 - 40 % [facility] Monocytes Percent Auto 6.9 2 - 11 % [facility] Eosinophils Percent Auto 1.7 0 - 4 % [facility] Basophils Percent Auto 0.7 0 - 2 % [facility] NRBC Pct Auto 0.0 0.0 - 0.2 /100WBC [facility] Neutrophils Absolute Auto 5.4 2.0 - 8.3 x10*3/uL [facility] Imm Gran Abs Auto 0.03 0.00 - 0.03 X10*3/uL [facility] Lymphocytes Absolute Auto 3.4 1.2 - 4.9 X10*3/uL [facility] Monocytes Absolute Auto 0.7 0.1 - 1.2 X10*3/uL [facility] Eosinophils Absolute Auto 0.2 0.0 - 0.4 X10*3/uL [facility] Basophils Absolute Auto 0.1 0.0 - 0.2 X10*3/uL [facility] NRBC Abs Auto 0.000 0.0 - 0.012 X10*3/uL [facility] Blood Venous blood specimen / Unknown 06/09/2025 1:58 PM EDT 06/09/2025 3:56 PM EDT us Annabel Villegas MD LAB BLOOD ORDERABLES Fin al Result [facility] [address] [place] [address] [phone] * Hepatic Function Panel (06/09/2025 1:58 PM EDT) Bilirubin, Total 0.3 0.0 - 1.0 mg/dL [facility] Bilirubin, Direct 0.1 0.0 - 0.5 mg/dL [facility] Aspartate Amino Transferase 21 5 - 37 U/L [facility] Alanine Aminotransferase 31 0 - 40 U/L [facility] Total Protein 7.7 6.5 - 8.0 g/dL [facility] Albumin Level 4.6 3.5 - 5.0 g/dL [facility] Alkaline Phosphatase 116 39 - 117 U/L [facility] Blood Venous blood specimen / Unknown 06/09/2025 1:58 PM EDT 06/09/2025 3:56 PM EDT Annabel Villegas MD LAB BLOOD ORDERABLES Fin al Result [facility] [address] [place] [phone] * POCT Urinalysis (06/09/2025 1:41 PM [...] Media Lot # [id number] Lot# Expiration Date 5737,864 Urine (Urine, Random) 06/09/2025 1:41 PM EDT Annabel Villegas MD POINT OF CARE TEST ENTER /EDIT ORDERABLES Final Result * Albumin, Random Urine W/Creatinine (09/05/2024 8:35 AM EST) Creatinine, Urine 117.04 mg/dL [facility] Microalbumin Urine 8.0 mg/L [facility] Microalbum Creatinine Ratio Ur 6.8 <30 ug/mg cr [facility] Comment:Albumin/Creatinine R atio Reference Ranges: Normal: < 30 ug/mg creatinine Microalbuminuria: 30 - 300 ug/mg creatinineClinical Albuminuria: > 300 ug/mg creatinine Urine (Urine, Random) 09/05/2024 8:35 AM EST 09/05/2024 11:21 AM EST us Shanda Arcenio NATURAL SCIENCES MANAGER LAB URINE ORDERABLES Final Resu lt [facility] [address] [place] [phone] * (ABNORMAL) Lipid Panel, Standard (09/05/2024 8:35 AM EST) Triglycerides 344(H) <150 mg/dL [facility] Comment:Mild Lipemia.Desirab le Triglyceride: less than 150 mg/dLBorderline High Triglyceride 150-199 mg/dLHigh Triglyceride: 200-499 mg/dLVery High Triglyceride: greater than or equal to 5OO mg/dL Cholesterol 183 <200 mg/dL [facility] Comment:Desirable Cholestero l: less than 200 mg/dLBorderline High Cholesterol: 200-239 mg/dLHigh Cholesterol: greater than 239 mg/dL LDL Cholesterol Calculated 82 <100 mg/dL [facility] Comment:Desirable LDL: less than 100 mg/dLNear Optimal/Above Optimal LDL: 110- 129 mg/dLBorderline High LDL: 130-159 mg/dLHigh LDL: 160-189 mg/dLVery High LDL: greater than or equal to 190 mg/dL HDL Cholesterol 33(L) >40 mg/dL [facility] Comment:Desirable HDL: great er than 40 mg/dL Note: This HDL assay may give artificially low results in patients with liver disease. Blood Venous blood specimen / Unknown 09/05/2024 8:35 AM EST 09/05/2024 11:23 AM EST [facility] NATURAL SCIENCES MANAGER LAB BLOOD ORDERABLES Final Resu lt Performing Organization Address [facility]/ZIP Co de Phone Number [facility] [address] [place] [phone] * Hepatitis C Antibody with Reflex to HCV, RNA, Quantitative, Real-Time PCR (11/09/2023 3:25 PM EDT) Hepatitis C Antibody Nonreactive Nonreactive [facility] Comment:Antibodies to HCV no t detected; does not exclude early acuteHCV infection. Blood Venous blood specimen / Unknown 11/09/2023 3:25 PM EDT 11/09/2023 3:25 PM EDT [facility] LAB BLOOD ORDERABLES Final Resu lt Performing Organization Address [facility] Co de Phone Number [facility] [address] [place] [phone] * HIV-1/2 Antigen and Antibodies, Fourth Generation, with Reflexes (11/09/2023 3:25 PM EDT) HIV AB/AG Nonreactive Nonreactive [facility] Comment:HIV-1 p24 Ag and/or HIV-1/HIV-2 Ab not detected.A test result that is nonreactive does not exclude thepossibility of exposure to or infection with HIV-1 and/orHIV-2. Nonreactive results in this assay for individualswith prior exposure to HIV-1 and/or HIV-2 may be due toantigen and antibody levels that are below the limit ofdetection of this assay.The [employer] HIV Ag/Ab Combo assay result andsupplemental assay results should be interpreted inconjunction with the patient's clinical presentation,history and other laboratory results. If the results areinconsistent with clinical evidence, additional testing issuggested to confirm the result. Blood Venous blood specimen / Unknown 11/09/2023 3:25 PM EDT 11/09/2023 3:25 PM EDT Shanda Rg NATURAL SCIENCES MANAGER LAB BLOOD ORDERABLES Final Resu lt [facility] [address] [place] [phone] [phone] * Hm Colonoscopy (07/12/2021) Colonoscopy normal [...] Insurance [facility] C3 8 [place], [place] 8 [place], [place] Care Teams Agricultural Research Technologist Relationship Specialty Start Date End Date Shanda Rg NP [address] [place] [address] PCP - General Family Medicine 06/06/23 Jas Cordero FNP [address] [place] [address] Nurse Practitioner Family Medicine 07/24/23 Aixa Ng ReceptionSteak Tenderizer Machine 09/11/23
--- OUTSIDE RECORDS SUMMARY | 2025-08-15 10:31 | XMS_ITS | Encounter Summary ---
Author Organization [employer] Address [address] [place] [address] 7 [place] [address] Care Team Providers Care Database Management Specialist Name Role Phone Shanda Rg NP Primary Care Provider [phone] Jas Cordero Unavailable Unavailable Reason for Visit * Reason Comments Med Refill Encounter Details Date Type Department Care Team (Late st Contact Info) Description 08/01/2023 Refill [facility] [address] [place] [address] Lianet Mae FNP [address] [place] [address] Pain; Cervical radiculopathy; Lumbar radiculopathy Social History [...] Description 09/04/2025 1:00 PM EST Clinical Support [facility] [address] [place] [phone] 10/23/2025 1:30 PM EST Office Visit [facility] [address] [place] [address] Oly Christiansen, OD [address] [place] [address] 11/06/2025 8:30 AM EDT Clinical Support [facility] [address] [place] [phone] Cait Velazquez RN documented as of this encounter Visit Diagnoses Diagnosis Pain Generalized pain Cervical radiculopathy Brachial neuritis or radiculitis nos Lumbar radiculopathy Thoracic or lumbosacral neuritis or radiculitis, unspecified documented in this encounter Additional Health Concerns Assessment Noted Time PHQ-9 Depression Total Score: 4 08/01/20 23 11:20 AM EST documented as of this encounter Care Teams Database Management Specialist Relationship Specialty Start Date End Date Shanda Rg NP [address] [place] [address] PCP - General Family Medicine 06/06/23 Jas Cordero FNP [address] [place] [address] Nurse Practitioner Family Medicine 07/24/23 Aixa Ng Machinist Set UpCarbon Paste Mixer Operator 09/11/23 documented as of this encounter
--- OUTSIDE RECORDS SUMMARY | 2025-08-15 10:31 | XMS_ITS | Encounter Summary ---
Author Organization [employer] Address [address] [place] [address] [address] [place] [address] Care Team Providers Care Exhaust Machine Operator Name Role Phone Shanda Rg NP Primary Care Provider [phone] Jas Cordero Unavailable Unavailable Encounter Details Date Type Department Care Team ([facility] Contact Info) Description 06/09/2025 Results Follow-Up [facility] [address] [place] [address] Annabel Villegas MD [address] [place] [address] CBC auto differential, Hepatic Function Panel, POCT [...] Description 09/04/2025 1:00 PM EST Clinical Support [facility] [address] [place] [phone] 10/23/2025 1:30 PM EST Office Visit [facility] [address] [place] [address] Oly Christiansen, OD [address] [place] [address] 11/06/2025 8:30 AM EDT Clinical Support [facility] [address] [place] [address] Cait Velazquez RN documented as of this encounter Visit Diagnoses Not on filedocumented in this encounter Additional Health Concerns Assessment Noted Time PHQ-9 Depression Total Score: 17 025 3:44 PM EDT documented as of this encounter Care Teams Exhaust Machine Operator Relationship Specialty Start Date End Date Shanda Rg NP [address] [place] [address] PCP - General Family Medicine 06/06/23 Jas Cordero FNP [address] [place] [address] Nurse Practitioner Family Medicine 07/24/23 Aixa Ng Engraver SignatureTravel Med Surg Rn 09/11/23 documented as of this encounter
--- OUTSIDE RECORDS SUMMARY | 2025-08-15 10:31 | XMS_ITS | Encounter Summary ---
Author Organization [employer] Address [address] [place] [address] 7 [place] [address] Care Team Providers Care Database Programmer Analyst Name Role Phone Shanda Rg NP Primary Care Provider [phone] Jas Cordero Unavailable Unavailable Reason for Visit * Reason Onset Date Comments Appointment Request 09/25/2023 Encounter Details Date Type Department Care Team ([facility] st Contact Info) Description 09/25/2023 Telephone [facility] MEDICINE [address] [place] [address] Shanda Rg NP 230 [place], [place] [phone] Appointment Request Social History Tobacco Use Types [...] regarding existing conditions. Please contact pt at [phone]. Malian speaking documented in this encounter Plan of Treatment Upcoming Encounters Date Type Department Care Team (Late st Contact Info) Description 09/04/2025 1:00 PM EST Clinical Support [facility] MEDICINE [address] [place] [address] 10/23/2025 1:30 PM EST Office Visit [facility] OPTOMETRY [address] [place] [address] Kuldip, Oly, OD 230 [place] [address] 11/06/2025 8:30 AM EDT Clinical Support [facility] MEDICINE [address] [place] [address] Cait Velazquez RN documented as of this encounter Visit Diagnoses Not on filedocumented in this encounter Additional Health Concerns Assessment Noted Time PHQ-9 Depression Total Score: 4 08/01/20 23 11:20 AM EST documented as of this encounter Care Teams Database Programmer Analyst Relationship Specialty Start Date End Date Shanda Rg NP 230 [place] [address] PCP - General Family Medicine 06/06/23 Jas Cordero FNP [address] [place] [address] Nurse Practitioner Family Medicine 07/24/23 Aixa Ng Dielectric Embossing Machine OperatorAssistant Manager Bilingual 09/11/23 documented as of this encounter
--- OUTSIDE RECORDS SUMMARY | 2025-08-15 10:31 | XMS_ITS | Encounter Summary ---
Author Organization [employer] Address [address] [place] [address] 7 [place] [address] Care Team Providers Care Shank Sander Name Role Phone Shanda Rg NP Primary Care Provider [phone] Jas Cordero Unavailable Unavailable Reason for Visit * Reason Onset Date Comments Med Refill 03/25/2024 Encounter Details Date Type Department Care Team (Late st Contact Info) Description 03/25/[address] [facility] MEDICINE 230 [place] [address] Shanda Rg NP 230 [place], [place] [phone] Med Refill Social History Tobacco Use Types [...] - 112 for [address] [facility] pharmacy. * Telephone Encounter - Jean Rosario - 03/25/2024 1:38 PM EDT TC from pt requesting medication refill. Medications needing refill: traMADol (Ultram) 50 MG tablet To be sent to: [facility] Pharmacy documented in this encounter Plan of Treatment Upcoming Encounters Date Type Department Care Team (Late st Contact Info) Description 09/04/2025 1:00 PM EST Clinical Support [facility] MEDICINE [address] [place] [address] 10/23/2025 1:30 PM EST Office Visit [facility] OPTOMETRY [address] [place] [address] Kuldip, Oly, OD 230 [place], [place] [phone] 11/06/2025 8:30 AM EDT Clinical Support [facility] MEDICINE [address] [place] [address] Cait Velazquez RN documented as of this encounter Visit Diagnoses Not on filedocumented in this encounter Additional Health Concerns Assessment Noted Time PHQ-9 Depression Total Score: 9 01/30/20 9:09 AM EDT documented as of this encounter Care Teams Shank Sander Relationship Specialty Start Date End Date Shanda Rg NP [address] [place] [address] PCP - General Family Medicine 06/06/23 Jas Cordero FNP [address] [place] [address] Nurse Practitioner Family Medicine 07/24/23 Aixa Ng Airline Security RepresentativeClothing Room Supervisor 09/11/23 documented as of this encounter
--- OUTSIDE RECORDS SUMMARY | 2025-08-15 10:31 | XMS_ITS | Encounter Summary ---
Author Organization [employer] Address [address] [place] [address] 7 [place] [address] Care Team Providers Care Steno Pool Supervisor Name Role Phone Shanda Rg NP Primary Care Provider [phone] Jas Cordero Unavailable Unavailable Reason for Visit * Reason Comments Med Refill Encounter Details Date Type Department Care Team (Late st Contact Info) Description 09/09/2023 Refill [facility] MEDICINE 230 [place] [address] NameJerardo MD 230 [place] [address] Radiculopathy, cervical region Social History Tobacco Use [...] Description 09/04/2025 1:00 PM EST Clinical Support [facility] MEDICINE [address] [place] [address] 10/23/2025 1:30 PM EST Office Visit [facility] OPTOMETRY [address] [place] [address] lOy Christiansen, OD 230 [place] [address] 11/06/2025 8:30 AM EDT Clinical Support [facility] MEDICINE [address] [place] [address] Cait Velazquez RN documented as of this encounter Visit Diagnoses Diagnosis Radiculopathy, cervical region Brachial neuritis or radiculitis nos documented in this encounter Additional Health Concerns Assessment Noted Time PHQ-9 Depression Total Score: 4 08/01/20 23 11:20 AM EST documented as of this encounter Care Teams Steno Pool Supervisor Relationship Specialty Start Date End Date Shanda Rg NP [address] [place] [address] PCP - General Family Medicine 06/06/23 Jas Cordero FNP [address] [place] [address] Nurse Practitioner Family Medicine 07/24/23 Aixa Ng Cdl Company DriverWildlife Conservation Officer 09/11/23 documented as of this encounter
--- OUTSIDE RECORDS SUMMARY | 2025-08-15 10:31 | XMS_ITS | Encounter Summary ---
Author Organization [employer] Address [address] [place] [address] 7t [place] [address] Care Team Providers Care Time Cycle Operator Name Role Phone Shanda Rg NP Primary Care Provider [phone] Jas Cordero Unavailable Unavailable Encounter Details Date Type Department Care Team ([facility] Contact Info) Description 08/15/2024 Telephone [facility] MEDICINE 230 [place], [place] [phone] Shanda Rg NP 230 [place], [place] [phone] Social History Tobacco Use Types Packs/Day Years [...] 09/04/2025 1:00 PM EST Clinical Support [facility] MEDICINE 230 [place] [address] 10/23/2025 1:30 PM EST Office Visit [facility] OPTOMETRY [address] [place] [address] Kuldip, Oly, OD [address] [place] [address] 11/06/2025 8:30 AM EDT Clinical Support [facility] MEDICINE [address] [place] [address] Cait Velazquez RN documented as of this encounter Visit Diagnoses Not on filedocumented in this encounter Additional Health Concerns Assessment Noted Time PHQ-9 Depression Total Score: 9 01/30/20 24 9:09 AM EDT documented as of this encounter Care Teams Time Cycle Operator Relationship Specialty Start Date End Date Shanda Rg NP [address] [place] [address] PCP - General Family Medicine 06/06/23 Jas Cordero FNP [address] [place] [address] Nurse Practitioner Family Medicine 07/24/23 Aixa Ng Powder NipperClient Service Administrator 09/11/23 documented as of this encounter
--- OUTSIDE RECORDS SUMMARY | 2025-08-15 10:31 | XMS_ITS | Encounter Summary ---
Author Organization [employer] Address [address] [place] [address] 7 [place] [address] Care Team Providers Care Dextrine Mixer Name Role Phone Shanda Rg NP Primary Care Provider [phone] Jas Cordero Unavailable Unavailable Reason for Visit * Reason Comments Med Refill Encounter Details Date Type Department Care Team ([facility] st Contact Info) Description 09/22/2023 Refill [facility] MEDICINE 230 [place] [address] Carrie Shrestha MD 230 [place] [address] Seasonal allergic rhinitis, unspecified trigger Social History [...] EST Clinical Support [facility] MEDICINE [address] [place] [address] 10/23/2025 1:30 PM EST Office Visit [facility] OPTOMETRY [address] [place] [address] Oly Christiansen, OD 230 [place] [address] 11/06/2025 8:30 AM EDT Clinical Support [facility] MEDICINE [address] [place] [address] Cait Velazquez RN documented as of this encounter Visit Diagnoses Diagnosis Seasonal allergic rhinitis, unspecified trigger documented in this encounter Additional Health Concerns Assessment Noted Time PHQ-9 Depression Total Score: 4 08/01/20 23 11:20 AM EST documented as of this encounter Care Teams Dextrine Mixer Relationship Specialty Start Date End Date Shanda Rg NP 230 [place] [address] PCP - General Family Medicine 06/06/23 Jas Cordero FNP 230 [place] [address] Nurse Practitioner Family Medicine 07/24/23 Aixa Ng Shaper SetterManager Business Information 09/11/23 documented as of this encounter
--- OUTSIDE RECORDS SUMMARY | 2025-08-15 10:31 | XMS_ITS | Encounter Summary ---
Author Organization [facility] Address [address] [place] [address] Phone Care Team Providers Care Model Maker Scale Name Role Phone Pcp, Unknown Primary Care Provider Unavailabl e Encounter Details Date Type Department Care Team (Late st Contact Info) Description 07/06/2017 Ancillary Orders [facility] [address] [place] [address] [place] [address] Darius Johnson DO [address] [place] [address] Palpitations Social History Tobacco Use Types Packs/Day [...] Palpitations documented in this encounter Care Teams Model Maker Scale Relationship Specialty Start Date End Date Pcp, Unknown PCP - General 07/06/17 documented as of this encounter Additional Source Comments The information contained in this document represents components of the legal health record. It is not the complete legal health record.[facility]
--- OUTSIDE RECORDS SUMMARY | 2025-08-15 10:32 | XMS_ITS | Encounter Summary ---
Author Organization [facility] Address [address] [place] [address] Phone Care Team Providers Care Forms Examiner Name Role Phone Pcp, Unknown Primary Care Provider Unavailabl e Encounter Details Date Type Department Care Team (Late st Contact Info) Description 08/05/2020 Procedure [facility] [address] [place] [address] [place] [address] Social History Tobacco Use Types Packs/Day Years [...] on filedocumented in this encounter Care Teams Forms Examiner Relationship Specialty Start Date End Date Pcp, Unknown PCP - General 07/06/17 documented as of this encounter Additional Source Comments The information contained in this document represents components of the legal health record. It is not the complete legal health record.[facility]
--- OUTSIDE RECORDS SUMMARY | 2025-08-15 10:32 | XMS_ITS | Encounter Summary ---
Author Organization [facility] Address [address] [place] [address] [place], [place] [address] Care Team Providers Care Gyroscope Technician Name Role Phone Carmen Faust MD Primary Care Provider Cali Lundberg Primary Care Provider Jada Gomez ROUTEMAN Primary Care Provider Shanda Roman NP Primary Care Provider [phone] Jas Cordero Unavailable Unavailable Reason for Visit * Reason Comments Med Refill Encounter Details Date Type Department Care Team (Late st Contact Info) Description 09/01/2022 Refill [facility] MEDICINE [address] [place] [address] Jas Cordero FNP Social History Tobacco Use [...] Description 09/04/2025 1:00 PM EST Clinical Support [facility] MEDICINE [address] [place] [address] 10/23/2025 1:30 PM EST Office Visit [facility] OPTOMETRY [address] [place] [address] Oly Christiansen, OD 230 [place] [address] 11/06/2025 8:30 AM EDT Clinical Support [facility] MEDICINE [address] [place] [address] Cait Velazquez, RN documented as of this encounter Visit Diagnoses Not on filedocumented in this encounter Additional Health Concerns Assessment Noted Time PHQ-9 Depression Total Score: 12 022 9:34 AM EST documented as of this encounter Care Teams Gyroscope Technician Relationship Specialty Start Date End Date Carmen Faust MD PCP - General Family Medicine 02/17/20 09/20/22 Cali Steward FNP PCP - General Family Medicine 09/21/22 10/26/22 Jada Erickson FNP PCP - General Family Medicine 10/27/22 06/05/23 Shanda Rg NP 230 [place] [address] PCP - General Family Medicine 06/06/23 Jas Cordero FNP 230 [place] [address] Nurse Practitioner Family Medicine 07/24/23 Aixa Ng Assistant CounselKeno Clerk 09/11/23 documented as of this encounter
--- OUTSIDE RECORDS SUMMARY | 2025-08-15 10:32 | XMS_ITS | Encounter Summary ---
Author Organization [employer] Address [address] [place] [address] 7 [place] [address] Care Team Providers Care Service Inspector Name Role Phone Shanda Rg NP Primary Care Provider [phone] Jas Cordero Unavailable Unavailable Reason for Visit * Reason Onset Date Comments Med Refill 02/15/2024 Encounter Details Date Type Department Care Team (Late st Contact Info) Description 02/15/2024 Telephone [facility] MEDICINE 230 [place] [address] Shanda Rg NP 230 [place], [place] [phone] Med Refill Social History Tobacco Use Types [...] 10:43 AM EDT Medication was sent to [facility] on 01/30/24 #30 with 5 refills. * Telephone Encounter - Susan Mendoza - 02/15/2024 10:39 AM EDT TC from pt requesting medication refill. Medications needing refill : zolpidem (Ambien) 10 MG tablet To be sent to: [facility] - [place], [place] - [address] [facility] documented in this encounter Plan of Treatment Upcoming Encounters Date Type Department Care Team (Late st Contact Info) Description 09/04/2025 1:00 PM EST Clinical Support [facility] MEDICINE [address] [place], [place] [phone] 10/23/2025 1:30 PM EST Office Visit [facility] OPTOMETRY [address] [place] [address] Oly Christiansen, OD [address] [place] [address] 11/06/2025 8:30 AM EDT Clinical Support [facility] MEDICINE [address] [place] [address] Cait Velazquez, LUCY documented as of this encounter Visit Diagnoses Not on filedocumented in this encounter Additional Health Concerns Assessment Noted Time PHQ-9 Depression Total Score: 9 01/30/20 24 9:09 AM EDT documented as of this encounter Care Teams Service Inspector Relationship Specialty Start Date End Date Shanda Rg NP [address] [place] [address] PCP - General Family Medicine 06/06/23 Jas Cordero FNP [address] [place] [address] Nurse Practitioner Family Medicine 07/24/23 Aixa Ng Machine BurrerManager Operating 09/11/23 documented as of this encounter
--- OUTSIDE RECORDS SUMMARY | 2025-08-15 10:32 | XMS_ITS | Encounter Summary ---
Author Organization [employer] Address [address] [place] [address] 7[address] [place] [address] Care Team Providers Care Chairman & Ceo Name Role Phone Carmen Faust MD Primary Care Provider Cali Lundberg TECHNOLOGY AUDITOR Primary Care Provider Jada Gomez TECHNOLOGY AUDITOR Primary Care Provider Shanda Roman NP Primary Care Provider [phone] Jas Cordero TECHNOLOGY AUDITOR Unavailable Unavailable Encounter Details Date Type Department Care Team (Latest Contact Info) Description 07/15/2019 Abstract [facility] CONVERSIONS Dental, Provider, DDS Social [...] 1:00 PM EST Clinical Support [facility] MEDICINE 230 [place] [address] 10/23/2025 1:30 PM EST Office Visit [facility] OPTOMETRY [address] [place] [address] Oly Christiansen, OD 230 [place] [address] 11/06/2025 8:30 AM EDT Clinical Support [facility] MEDICINE [address] [place] [address] Cait Velazquez, RN documented as of this encounter Visit Diagnoses Not on filedocumented in this encounter Care Teams Chairman & Ceo Relationship Specialty Start Date End Date Carmen Faust MD PCP - General Family Medicine 02/17/20 09/20/22 Cali Steward FNP PCP - General Family Medicine 09/21/22 10/26/22 Jada Erickson FNP PCP - General Family Medicine 10/27/22 06/05/23 Shanda Rg NP [address] [place] [address] PCP - General Family Medicine 06/06/23 Jas Cordero FNP [address] [place] [address] Nurse Practitioner Family Medicine 07/24/23 Aixa Ng Natural Resource SpecialistNutritionist Public Health 09/11/23 documented as of this encounter
--- OUTSIDE RECORDS SUMMARY | 2025-08-15 10:32 | XMS_ITS | Encounter Summary ---
Author Organization [employer] Address [address] [place] [address] [address], [place] [address] Care Team Providers Care Manager Cosmetic Name Role Phone Carmen Faust MD Primary Care Provider Cali Lundberg MANAGER MSW Primary Care Provider Jada Gomez MANAGER MSW Primary Care Provider Marissa Shanda Mensah NP Primary Care Provider [phone] Jas Cordero MANAGER MSW Unavailable Unavailable Encounter Details Date Type Department Care Team (Late st Contact Info) Description 08/05/2022 Orders Only [facility] MEDICINE [address] [place] [address] Matthew Dunbar MD 230 [place] [address] Social History Tobacco Use Types Packs/Day Years [...] EST Clinical Support [facility] MEDICINE 230 [place] [address] 10/23/2025 1:30 PM EST Office Visit [facility] OPTOMETRY [address] [place] [address] [phone] Oly Christiansen OD 230 [place] [address] 11/06/2025 8:30 AM EDT Clinical Support [facility] MEDICINE 230 [place] [address] Cait Velazquez, RN documented as of this encounter Visit Diagnoses Not on filedocumented in this encounter Care Teams Manager Cosmetic Relationship Specialty Start Date End Date Carmen Faust MD PCP - General Family Medicine 02/17/20 09/20/22 Cali Steward FNP PCP - General Family Medicine 09/21/22 10/26/22 Jada Erickson FNP PCP - General Family Medicine 10/27/22 06/05/23 Shanda Rg NP [address] [place] [address] PCP - General Family Medicine 06/06/23 Jas Cordero FNP [address] [place] [address] Nurse Practitioner Family Medicine 07/24/23 Aixa Ng Fruit InspectorChamber Walker 09/11/23 documented as of this encounter
--- OUTSIDE RECORDS SUMMARY | 2025-08-15 10:32 | XMS_ITS | Encounter Summary ---
Author Organization [employer] Address [address] [place] [address] 7 [place] [address] Care Team Providers Care Assistant Quality Manager Name Role Phone Dre Jada Huntley METAL WIRE TECHNICIAN Primary Care Provider Marissa Shanda Mensah NP Primary Care Provider [phone] Jas Cordero Unavailable Unavailable Reason for Visit * Reason Comments Med Refill Encounter Details Date Type Department Care Team (Late st Contact Info) Description 10/31/2022 Refill [facility] MEDICINE [address] [place] [address] Jas Cordero FNP Major depressive disorder with [...] 11/02/2022 11:52 AM EST FYI, 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 Urine/Pill count WNL. Bp 152/108, stated he had taken his blood pressure medication this morning. documented in this encounter Plan of Treatment Upcoming Encounters Date Type Department Care Team (Late st Contact Info) Description 09/04/2025 1:00 PM EST Clinical Support [facility] MEDICINE 230 [place] [address] 10/23/2025 1:30 PM EST Office Visit [facility] OPTOMETRY [address] [place] [address] Kuldip, Oly, OD 230 [place] [address] 11/06/2025 8:30 AM EDT Clinical Support [facility] MEDICINE [address] [place] [address] Cait Velazquez RN documented as of this encounter Visit Diagnoses Diagnosis Major depressive disorder with psychotic features (CMS/HCC) (HCC) documented in this encounter Additional Health Concerns Assessment Noted Time PHQ-9 Depression Total Score: 9 09/27/19 9:22 AM EST documented as of this encounter Care Teams Assistant Quality Manager Relationship Specialty Start Date End Date Jada Erickson FNP PCP - General Family Medicine 10/27/22 06/05/23 Shanda Rg NP [address] [place] [address] PCP - General Family Medicine 06/06/23 Jas Cordero FNP [address] [place] [address] Nurse Practitioner Family Medicine 07/24/23 Aixa Ng Sketch MakerVamp Throater 09/11/23 documented as of this encounter
--- OUTSIDE RECORDS SUMMARY | 2025-08-15 10:32 | XMS_ITS | Clinical Summary ---
Author Organization [facility] Address [address] [place] [address] [place] [address] Phone Care Team Providers Care Small Piece Cutter Name Role Phone Pcp, Unknown Primary Care [...] file Medical Devices Not on file Insurance [facility] CAREPLUS Member Subscriber Plan / Payer (Ef fective 2017-Present) Name:Davidson Gillespie Relation to Subscriber:Self Name:Davidson Gillespie Payer ID:[id number] Group ID:[id number] Type:Medicaid Address: [address] [facility] C3 ACO [facility] CAREPLUS Member Subscriber Plan / Payer (Ef fective 2017-Present) Name:Davidson Gillespie Relation to Subscriber:Self Name:Davidson Gillespie Payer ID:[id number] Group ID:[id number] Type:Medicaid Address: [address] C3 ACO [facility] CAREPLUS Member Subscriber Plan / Payer (Ef fective 2017-Present) Name:Davidson Gillespie Relation to Subscriber:Self Name:Davidson Gillespie Payer ID:[id number] Group ID:[id number] Type:Medicaid Address: [address] C3 ACO [facility] CAREPLUS Member Subscriber Plan / Payer (Ef fective 2017-Present) Name:Davidson Gillespie Relation to Subscriber:Self Name:Davidson Gillespie Payer ID:[id number] Group ID:[id number] Type:Medicaid Address: [address] C3 ACO [facility] CAREPLUS Member Subscriber Plan / Payer (Ef fective 2017-Present) Name:Davidson Gillespie Relation to Subscriber:Self Name:Davidson Gillespie Payer ID:[id number] Group ID:[id number] Type:Medicaid Address: [address] [place] [address] CAREPLUS Member Subscriber Plan / Payer (Ef fective 2017-Present) Name:Davidson Gillespie Relation to Subscriber:Self Name:Davidson Gillespie Payer ID:[id number] Group ID:[id number] Type:Medicaid Address: [address] C3 ACO [facility] CAREPLUS Member Subscriber Plan / Payer (Ef fective 2017-Present) Name:Davidson Gillespie Relation to Subscriber:Self Name:Davidson Gillespie Payer ID:[id number] Group ID:[id number] Type:Medicaid Address: [address] [place], [place] [address]PLUS Member Subscriber Plan / Payer (Ef fective 2017-Present) Name:Davidson Gillespie Relation to Subscriber:Self Name:Davidson Gillespie Payer ID:[id number] Group ID:[id number] Type:Medicaid Address: [address] C3 ACO [facility] CAREPLUS C3 ACO Care Teams Small Piece Cutter Relationship Specialty Start Date End Date Pcp, Unknown PCP - General 07/06/17 Additional Source Comments The information contained in this document represents components of the legal health record. It is not the complete legal health record.[facility]
--- OUTSIDE RECORDS SUMMARY | 2025-08-15 10:32 | XMS_ITS | Encounter Summary ---
Author Organization [facility] Address [address] [place] [address] Phone Care Team Providers Care State Auditor Name Role Phone Pcp, Unknown Primary Care Provider Unavailabl e Encounter Details Date Type Department Care Team (Late st Contact Info) Description 08/05/2020 Ancillary Orders [facility] [address] [place] [address] [place] [address] Darius Johnson DO [address] [place] [id number] Palpitations Social History Tobacco Use Types Packs/Day [...] Palpitations documented in this encounter Care Teams State Auditor Relationship Specialty Start Date End Date Pcp, Unknown PCP - General 07/06/17 documented as of this encounter Additional Source Comments The information contained in this document represents components of the legal health record. It is not the complete legal health record.[facility]
== END 2025-08-15 09:42 | disposition home or self-care (01) ==
LOC: HO.US 09:41
PROVIDERS: Visit Provider Internal Medicine
DX: R10.11 Right upper quadrant pain (principal)
CPT/HCPCS: 76700

== ENCOUNTER → 2025-08-15 09:44 | Outpatient (BNV) | payer MEDICAID, SELFPAY | PROVIDERS: Visit Provider Radiology Vascular & Interventional Radiology | DX: K76.0 Fatty (change of) liver, not elsewhere classified (principal); R16.0 Hepatomegaly, not elsewhere classified | CPT/HCPCS: 76700 ==